=== PATIENT | female | born 1995 | race Caucasian/White ===

== ENCOUNTER 2023-01-22 01:58 | Emergency (ER) | payer MEDICARE, MEDICAID, SELFPAY ==
[2023-01-22 01:58] VITALS: BP 129/86; PULSE 92; RESP 22; TEMP 36.6; O2SAT 97; BMI 22.3
--- NOTE | 2023-01-22 02:08 | ED.PSYCH1 ---
HPI - Psych General Chief Complaint: Psychiatric Symptoms Stated Complaint: SUICIDAL Time Seen by Provider: 01/22/23 02:08 Source: Reports patient Mode of arrival: ambulance Limitations: Reports no limitations History of Present Illness HPI Narrative: Patient brought into the emergency department via EMS for a mental health evaluation. Patient states she was fighting with her and he told her that he did not want her there so he called EMS. Patient states she has been arguing with him for the last 3 weeks. He has stayed out all night and several weeks ago for another woman answered the phone and was laughing at her telling her that I am with her right now. She states when she tries to speak to the he states his records it and gets mad and started treating her like she is crazy. She states today she wanted to discuss this could she's not been able to address the issue completely and this had a very bad argument. Patient states she had one shot of tequila and 3 shots of vodka. She thought she was having an anxiety attack and wanted to take some Xanax that she did not take it because she had ON board. She states that is prescribed for her. She has a history of anxiety, depression. She denies any suicide, homicide ideation. She states she is just going through a lot with her but exhibits escalated although there is no violence she feels it would be best if she left. She has been talking to her mom and her friends and everybody advice and certainly from that she cares too much about him to do so. He states he has cheated on her at least 3 times in the last year that they've been together. She states she feels safe going home and he has told her that she could go back to the house. However, she thinks she will stay tonight with her mom. Related Data Home Medications Medication Instructions Recorded Confirmed alprazolam 0.25 mg tablet 0.25 mg PO DAILY 01/22/23 01/22/23 buspirone 10 mg tablet 10 mg PO DAILY 01/22/23 01/22/23 sertraline 100 mg tablet 100 mg PO DAILY 01/22/23 01/22/23 Allergies Allergy/AdvReac Type Severity Reaction Status Date / Time No Known Drug Allergies Allergy Verified 01/22/23 02:05 Review of Systems ROS Status of ROS 10 or more systems reviewed and unremarkable except as noted in history and below Exam Narrative Exam Narrative: Nurses notes and vital signs reviewed and patient is not hypoxic. General: Nontoxic, Well-appearing and in no apparent distress. Skin: Warm, dry, no pallor noted. No Rash Head: Normocephalic, atraumatic. Neck: Supple, non-tender. Eye: Pupils are equal, round and EOMI. No scleral icterus. Ears, Nose, Mouth, and Throat: TM clear, no posterior oropharynx erythema or nasal mucosal hypertrophy, uvula is mid-line Oral mucosa is moist Cardiovascular: Regular Rate and Rhythm without murmur, gallop or rub. Respiratory: No accessory muscle use or respiratory distress. Lungs are clear to auscultation, no wheezing, rales or rhonchi Chest Wall: no tenderness Back: No midline thoracic or lumbar vertebral tenderness. No CVA tenderness Musculoskeletal: normal ROM, no calf or popliteal tenderness, no lower extremity edema/swelling GI: Abdomen is soft, non-distended. Normal bowel sounds. No masses appreciated. No tenderness to palpation. No rebound, guarding, or rigidity noted. Neurological: A&O x4. No cranial nerve dysfunction observed. No truncal ataxia. Moves all extremities. Sensation intact. Psychiatric: Cooperative and interactive. Normal mood and affect. Constitutional Vital Signs, click to edit/add: Last Vital Signs Temp 97.9 F 01/22/23 01:58 Pulse 92 H 01/22/23 01:58 Resp 01/22/23 01:58 BP 129/86 01/22/23 01:58 Pulse Ox 97 01/22/23 01:58 O2 Del Method Room Air 01/22/23 01:58 Course Vital Signs Vital signs: Vital Signs Temperature 97.9 F 01/22/23 01:58 Pulse Rate 92 H 01/22/23 01:58 Respiratory Rate 22 01/22/23 01:58 Blood Pressure 129/86 01/22/23 01:58 Pulse Oximetry 97 01/22/23 01:58 Oxygen Delivery Method Room Air 01/22/23 01:58 Temperature 97.9 F 01/22/23 01:58 Pulse Rate 92 H 01/22/23 01:58 Respiratory Rate 22 01/22/23 01:58 Blood Pressure 129/86 01/22/23 01:58 Pulse Oximetry 97 01/22/23 01:58 Oxygen Delivery Method Room Air 01/22/23 01:58 MDM - Psych MDM Narrative Medical decision making narrative: Patient denies any suicide, homicide ideation. Patient is medically clear. Alcohol level is within the legal limits. She states she was very anxious and was in the middle of the fight. She is instructed to get all her things in order so that she could make up her mind continuing and the relationship or not.At this point I cannot keep this patient against her will. No additional indication for emergent studies at this time. I answered all questions. Discussed discharge instructions including standard anticipatory guidance and what should prompt a return to the emergency department, including if they get worse are not getting better or develops any new or concerning symptoms. I've given them specific time frame in which to follow-up, and who to follow-up with. The patient demonstrates understanding. Patient is nontoxic and stable for discharge with outpatient follow-up. This note was created with the assistance of a speech recognition program. Although the intention is to generate documents that actually reflects the content of the visit, no guarantees can be provided that every mistake has been identified and corrected by editing. Differential Diagnosis Differential diagnosis: Likely acute anxiety Lab Data Attestation: I reviewed the patient's lab results. Labs: Lab Results 01/22/23 01/22/23 Range/Units 02:30 02:41 WBC 5.2 (4.0-11.0) 10^3/uL RBC 4.22 (4.20-5.40) 10^6/uL Hgb 13.1 (12.0-16.0) g/dL Hct 36.9 (36.0-48.0) % MCV 87.4 (81.0-99.0) fL MCH 31.0 (26.7-34.0) pg MCHC 35.5 H (29.9-35.2) g/dL RDW 13.5 (11.0-15.0) % Plt Count 187 (150-450) 10^3/uL MPV 9.0 L (9.5-13.5) fL Neut % (Auto) 49.1 (43.0-75.0) % Lymph % (Auto) 41.9 (20.5-60.0) % [place] % (Auto) 8.0 (1.7-12.0) % Eos % (Auto) 0.8 L (0.9-7.0) % Baso % (Auto) 0.2 (0.2-2.0) % Neut # (Auto) 2.6 (1.4-6.5) 10^3/uL Lymph # (Auto) 2.2 (1.2-3.8) 10^3/uL [place] # (Auto) 0.4 (0.3-0.8) 10^3/uL Eos # (Auto) 0.0 (0.0-0.7) 10^3/uL Baso # (Auto) 0.0 (0.0-0.1) 10^3/uL Abs Immat Gran (auto) 0.00 (0.00-0.03) 10^3/uL Imm/Tot Granulo (auto) 0.0 (0.0-0.5) % Sodium 143 (136-145) mmol/L Potassium 3.1 L (3.5-5.1) mmol/L Chloride 109 H (98-107) mmol/L Carbon Dioxide 24.5 (21.0-32.0) mmol/L Anion Gap 12.6 BUN 14.0 (7.0-18.0) mg/dL Creatinine 0.78 (0.55-1.02) mg/dL Est GFR ( Amer) >60 (>=60) Est GFR (Non-Af Amer) >60 (>=60) BUN/Creatinine Ratio 17.9 Glucose 73 L (74-106) mg/dL Calcium 8.8 (8.5-10.1) mg/dL Total Bilirubin 0.6 (0.2-1.0) mg/dL AST 14 L (15-37) U/L ALT 16 (14-59) U/L Alkaline Phosphatase 70 (46-116) U/L Total Protein 7.8 (6.4-8.2) g/dL Albumin 4.3 (3.4-5.0) g/dL Globulin 3.5 g/dL Albumin/Globulin Ratio 1.2 Urine Color Lt. yellow (YELLOW) Urine Clarity Clear (CLEAR) Urine pH 7.0 (5.0-9.0) Ur Specific [place] <=1.005 A (1.005-1.025) Urine Protein Negative (NEG/TRACE) mg/dL Urine Glucose (UA) Negative (NEGATIVE) mg/dL Urine Ketones Negative (NEGATIVE) mg/dL Urine Occult Blood Negative (NEGATIVE) Urine Nitrite Negative (NEGATIVE) Urine Bilirubin Negative (NEGATIVE) Urine Urobilinogen 0.2 (0.2-1.0) EU/dL Ur Leukocyte Esterase Negative (NEGATIVE) Urine HCG, Qual Negative (NEGATIVE) Salicylates <2.8 (<=19.9) mg/dL Urine Opiates Screen Negative (NEGATIVE) Ur Buprenorphine Scrn Negative (NEGATIVE) Ur Oxycodone Screen Negative (NEGATIVE) Urine Methadone Screen Negative (NEGATIVE) Ur Propoxyphene Screen Negative (NEGATIVE) Acetaminophen <2.0 L (10.0-30.0) ug/mL Ur Barbiturates Screen Negative (NEGATIVE) U Tricyclic Antidepress Negative (NEGATIVE) Ur Phencyclidine Scrn Negative (NEGATIVE) Ur Amphetamines Screen Negative (NEGATIVE) U Methamphetamines Scrn Negative (NEGATIVE) U Benzodiazepines Scrn Negative (NEGATIVE) Urine Cocaine Screen Negative (NEGATIVE) U Cannabinoids Screen Negative (NEGATIVE) Ethanol Quant 69 mg/dL ECG Data Attestation: I personally reviewed and interpreted this ECG as follows: Discharge Plan Discharge Chief Complaint: Psychiatric Symptoms Clinical Impression: Acute reaction to stress Patient Disposition: Home, Self-Care Time of Disposition Decision: 03:21 Condition: Good Mode of Transportation: Private Vehicle Prescriptions / Home Meds: No Action buspirone 10 mg tablet 10 mg PO DAILY alprazolam 0.25 mg tablet 0.25 mg PO DAILY sertraline 100 mg tablet 100 mg PO DAILY Instructions: Stress (ED) Additional Instructions: Follow-up with mental health in the morning. Stand Alone Forms: Portal Instructions
--- NOTE | 2023-01-22 02:10 | ECG_ITS ---
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
[2023-01-22] MEDS: 0.9 % SODIUM CHLORIDE 1,000 ML 999 ML IV (02:30)
[2023-01-22 02:50] LABS: Basophils Percent Auto 0.2 % (0.2-2.0); Eosinophils Percent Auto 0.8 % (0.9-7.0); Hematocrit 36.9 % (36.0-48.0); Hemoglobin 13.1 g/dL (12.0-16.0); Lymphocytes Absolute Auto 2.2 10^3/uL (1.2-3.8); Lymphocytes Percent Auto 41.9 % (20.5-60.0); Mean Corpuscular HGB Conc 35.5 g/dL (29.9-35.2); Mean Corpuscular Volume 87.4 fL (81.0-99.0); Monocytes Absolute Auto 0.4 10^3/uL (0.3-0.8); Neutrophils Absolute Auto 2.6 10^3/uL (1.4-6.5); Neutrophils Percent Auto 49.1 % (43.0-75.0); Platelet Count 187 10^3/uL (150-450); Red Blood Count 4.22 10^6/uL (4.20-5.40); Red Cell Distribution Width 13.5 % (11.0-15.0); White Blood Count 5.2 10^3/uL (4.0-11.0)
[2023-01-22 02:54] LABS: Bilirubin Urine NEGATIVE (NEGATIVE); Blood Urine NEGATIVE (NEGATIVE); Clarity Urine CLEAR (CLEAR); Color Urine LT. YELLOW (YELLOW); Glucose Urine UA NEGATIVE (NEGATIVE); HCG Qualitative Urine* NEGATIVE (NEGATIVE); Ketones Urine NEGATIVE (NEGATIVE); Leukocyte Esterase Urine NEGATIVE (NEGATIVE); Nitrite Urine NEGATIVE (NEGATIVE); Protein Urine NEGATIVE (NEG/TRACE); Specific Gravity Urine <=1.005 (1.005-1.025); Urobilinogen Urine 0.2 EU/dL (0.2-1.0)
[2023-01-22 03:00] LABS: Urine Microscopic Indicated NO
[2023-01-22 03:03] LABS: Amphetamine Screen Urine NEGATIVE (NEGATIVE); Barbiturates Screen Urine NEGATIVE (NEGATIVE); Benzodiazepines Screen Urine NEGATIVE (NEGATIVE); Buprenorphine Screen Urine NEGATIVE (NEGATIVE); Cannabinoid Screen Urine NEGATIVE (NEGATIVE); Cocaine Screen Urine NEGATIVE (NEGATIVE); Methadone Screen Urine NEGATIVE (NEGATIVE); Methamphetamines Screen Urine NEGATIVE (NEGATIVE); Opiate Screen Urine NEGATIVE (NEGATIVE); Oxycodone Screen Urine NEGATIVE (NEGATIVE); Phencyclidine Screen Urine NEGATIVE (NEGATIVE); Tricyclic Antidepressant Urine NEGATIVE (NEGATIVE)
--- NOTE | 2023-01-22 03:05 | PC.NURSE ---
patient came in by ems. patient was crying and upset. stated she got into an argument with her bf and that he called the bottling line attendant bc he wanted her to leave. patient stated she began having a panic attack but couldnt take her Xanax bc she had been drinking. patient said she wanted to cut herself. patient has hx of cutting herself but stated she hasn't done it in years. Patient states she doesnt want to be admitted, she wants to do counseling and go stay with her mom.
[2023-01-22 03:06] LABS: Salicylate <2.8 mg/dL (<=19.9)
[2023-01-22 03:09] LABS: Acetaminophen <2.0 ug/mL (10.0-30.0); Alanine Aminotransferase 16 U/L (14-59); Albumin Globulin Ratio 1.2; Albumin Level 4.3 g/dL (3.4-5.0); Alkaline Phosphatase 70 U/L (46-116); Anion Gap 12.6; Aspartate Amino Transferase 14 U/L (15-37); BUN Creatinine Ratio 17.9; Bilirubin Total 0.6 mg/dL (0.2-1.0); Calcium 8.8 mg/dL (8.5-10.1); Carbon Dioxide 24.5 mmol/L (21.0-32.0); Chloride 109 mmol/L (98-107); Estimated GFR (African America >60 (>=60); Estimated GFR (Non-African Ame >60 (>=60); Ethanol 69 mg/dL; Globulin 3.5 g/dL; Glucose 73 mg/dL (74-106); Potassium 3.1 mmol/L (3.5-5.1); Sodium 143 mmol/L (136-145); Total Protein 7.8 g/dL (6.4-8.2)
== END 2023-01-22 03:34 | disposition home or self-care (01) ==
PROVIDERS: Emergency Provider Emergency Medicine
DX: F43.0 Acute stress reaction (principal); F41.9 Anxiety disorder, unspecified; F32.A Depression, unspecified; Z79.899 Other long term (current) drug therapy
CPT/HCPCS: 36415; 80053; 80179; 80307; 80320; 80329; 81003; 84703; 85025; 93005; 99285

== ENCOUNTER 2023-02-07 12:55 | Emergency (ER) | payer SELFPAY | END 2023-02-07 12:59 | disposition left against medical advice (07) | LOC: ER 13:07 | PROVIDERS: Emergency Provider Emergency Medicine | DX: Z53.21 Procedure and treatment not carried out due to patient leaving prior to being seen by health care provider (principal) ==

== ENCOUNTER 2023-02-15 12:18 | Emergency (ER) | payer MEDICARE, SELFPAY ==
[2023-02-15 12:25] VITALS: BP 130/85; PULSE 78; RESP 14; TEMP 37.1; O2SAT 100; BMI 23.0
--- NOTE | 2023-02-15 12:59 | ED.GENADUL1 ---
HPI - General Adult General Chief complaint: Weakness Stated complaint: UPPER EXTREMITY PAIN LEFT ARM Time Seen by Provider: 02/15/23 12:53 Source: patient Mode of arrival: walk-in Limitations: no limitations History of Present Illness HPI narrative: Patient is a . All systems are negative except as noted/marked. All systems reviewed and otherwise negative. . Nurses note and vital signs reviewed and patient is not hypoxic. General: The patient appears well and in no apparent distress. Patient is resting comfortably on cart. Patient is not toxic, lethargic, or listless Skin: Warm, dry, no pallor noted. There is no rash noted. No petechiae, purpura. Head: Normocephalic, atraumatic Eye: Normal conjunctiva, no drainage, EOMI. PERRL Ears, Nose, Mouth, and Throat: oral mucosa is moist. Nares patent. Mouth without vesicles. Cardiovascular: Regular Rate and Rhythm, no murmur, gallop, rub Respiratory: Patient is in no distress, no accessory muscle use, lungs are clear to auscultation, no wheezing, rales or rhonchi Back: non-tender, no CVA tenderness bilaterally to percussion. No CT LS midline pain GI: soft, no tenderness to palpation, no masses appreciated. No rebound, guarding, or rigidity noted. No flank pain bilateral, No distention Musculoskeletal: Patient has full range of motion of all of the extremities, no motor, sensory, or focal neurological deficits Neurological: A&O x3, normal speech Psychiatric: Cooperative Related Data Home Medications Medication Instructions Recorded Confirmed alprazolam 0.25 mg tablet 0.25 mg PO DAILY 01/22/23 01/22/23 buspirone 10 mg tablet 10 mg PO DAILY 01/22/23 01/22/23 sertraline 100 mg tablet 100 mg PO DAILY 01/22/23 01/22/23 levothyroxine 100 mcg tablet 100 mcg PO DAILY 02/15/23 02/15/23 Allergies Allergy/AdvReac Type Severity Reaction Status Date / Time No Known Drug Allergies Allergy Verified 02/15/23 12:30 PFSH [facility] Social History Smoking status: Current every day smoker Exam Constitutional Vital Signs, click to edit/add: Last Vital Signs Temp 98.8 F 02/15/23 12:25 Pulse 78 02/15/23 12:25 Resp 14 02/15/23 12:25 BP 130/85 02/15/23 12:25 Pulse Ox 100 02/15/23 12:25 O2 Del Method Room Air 02/15/23 12:25 Course Vital Signs Vital signs: Vital Signs Temperature 98.8 F 02/15/23 12:25 Pulse Rate 78 02/15/23 12:25 Respiratory Rate 14 02/15/23 12:25 Blood Pressure 130/85 02/15/23 12:25 Pulse Oximetry 100 02/15/23 12:25 Oxygen Delivery Method Room Air 02/15/23 12:25 Temperature 98.8 F 02/15/23 12:25 Pulse Rate 78 02/15/23 12:25 Respiratory Rate 14 02/15/23 12:25 Blood Pressure 130/85 02/15/23 12:25 Pulse Oximetry 100 02/15/23 12:25 Oxygen Delivery Method Room Air 02/15/23 12:25 Discharge Plan Discharge Chief Complaint: Weakness Prescriptions / Home Meds: No Action buspirone 10 mg tablet 10 mg PO DAILY alprazolam 0.25 mg tablet 0.25 mg PO DAILY sertraline 100 mg tablet 100 mg PO DAILY levothyroxine 100 mcg tablet 100 mcg PO DAILY Referrals: Physician,Non-Staff, [Primary Care Provider] - 1 week
--- NOTE | 2023-02-15 13:07 | PC.NURSE ---
Lab was in room to draw pts blood when pt stated she had to leave to make it to an appt. for her implanted control device. loom technician told her to check in with staff first but she eloped without telling anyone. Dr Armijo notified.
== END 2023-02-15 13:20 | disposition left against medical advice (07) ==
PROVIDERS: Emergency Provider Emergency Medicine
DX: Z53.21 Procedure and treatment not carried out due to patient leaving prior to being seen by health care provider (principal)
CPT/HCPCS: 80048; 80076; 81001; 83735; 84439; 84443; 84703; 99284

== ENCOUNTER 2023-03-06 02:11 | Emergency (ER) | payer MEDICARE, MEDICAID, SELFPAY ==
[2023-03-06] VITALS (8 sets, daily range): BP systolic 110–138; BP diastolic 80–100; PULSE 107–114; RESP 16–18; TEMP 36.7; O2SAT 96–98
--- NOTE | 2023-03-06 02:26 | ECG_ITS ---
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
--- NOTE | 2023-03-06 02:27 | ED.PSYCH1 ---
HPI - Psych General Chief Complaint: Psychiatric Symptoms Stated Complaint: Suicide Time Seen by Provider: 03/06/23 02:17 History of Present Illness HPI Narrative: 27-year-old female presents for self-harm. Her called the police and they transported her here. She states that she had a mental breakdown and she was upset because she caught her cheating on her. She used scissors to cause numerous superficial abrasions to her arms and her thigh. She drank two bottles of wine tonight. She doesn't have any physical complaints and states she does not want to go to a mental hospital. She doesn't seem to have any physical complaints such as fever cough chest pain or shortness of breath. This occurred tonight. She told me that she had a weakly positive test. Related Data Home Medications Medication Instructions Recorded Confirmed alprazolam 0.25 mg tablet 0.25 mg PO DAILY 01/22/23 03/06/23 buspirone 10 mg tablet 10 mg PO DAILY 01/22/23 03/06/23 sertraline 100 mg tablet 100 mg PO DAILY 01/22/23 03/06/23 levothyroxine 100 mcg tablet 100 mcg PO DAILY 02/15/23 03/06/23 Allergies Allergy/AdvReac Type Severity Reaction Status Date / Time No Known Drug Allergies Allergy Verified 02/15/23 12:30 Review of Systems ROS Narrative A ten point review of systems is negative except as noted above. PFSH PFSH Social History Smoking status: Current every day smoker Exam Narrative Exam Narrative: Nurses note and vital signs reviewed and patient is not hypoxic. General: The patient appears well and in no apparent distress. Patient is resting comfortably on cart. Skin: Warm, dry, no pallor noted. There is no rash noted. Head: Normocephalic, atraumatic Eye: Normal conjunctiva, no drainage Ears, Nose, Mouth, and Throat: oral mucosa is moist. Nares patent. Cardiovascular: Regular Rate and Rhythm Respiratory: Patient is in no distress, no accessory muscle use, lungs are clear to auscultation, no wheezing, rales or rhonchi Back: non-tender GI: nontender Musculoskeletal: she has several superficial abrasions to each forearm on the flexor side and a few on her right thigh as well. No deep lacerations. Neurological: A&O, normal speech Psychiatric: Cooperative Constitutional Vital Signs, click to edit/add: Last Vital Signs Temp 98.1 F 03/06/23 02:17 Pulse 107 H 03/06/23 03:52 Resp 18 03/06/23 03:52 BP 133/100 H 03/06/23 03:52 Pulse Ox 97 03/06/23 03:52 O2 Del Method Room Air 03/06/23 02:17 Course Vital Signs Vital signs: Vital Signs Temperature 98.1 F 03/06/23 02:17 Pulse Rate 112 H 03/06/23 02:17 Respiratory Rate 16 03/06/23 02:17 Blood Pressure 138/98 H 03/06/23 02:17 Pulse Oximetry 97 03/06/23 02:17 Oxygen Delivery Method Room Air 03/06/23 02:17 Temperature 98.1 F 03/06/23 02:17 Pulse Rate 107 H 03/06/23 03:52 Respiratory Rate 18 03/06/23 03:52 Blood Pressure 133/100 H 03/06/23 03:52 Pulse Oximetry 97 03/06/23 03:52 Oxygen Delivery Method Room Air 03/06/23 02:17 MDM - Psych MDM Narrative Medical decision making narrative: Labs are nonspecific. Alcohol level of 31 is not consistent with her self reported history of drinking two bottles of wine. She will be observed and the patient is signed out to Dr. Navarrete and will need mental health services to be involved. Differential Diagnosis Differential diagnosis: Likely suicidal ideation, depression and acute anxiety Lab Data Attestation: I reviewed the patient's lab results. Labs: Lab Results 03/06/23 03/06/23 Range/Units 02:21 02:43 WBC 4.8 (4.0-11.0) 10^3/uL RBC 4.76 (4.20-5.40) 10^6/uL Hgb 15.0 (12.0-16.0) g/dL Hct 42.4 (36.0-48.0) % MCV 89.1 (81.0-99.0) fL MCH 31.5 (26.7-34.0) pg MCHC 35.4 H (29.9-35.2) g/dL RDW 12.2 (11.0-15.0) % Plt Count 218 (150-450) 10^3/uL MPV 8.7 L (9.5-13.5) fL Neut % (Auto) 40.4 L (43.0-75.0) % Lymph % (Auto) 50.2 (20.5-60.0) % [place] % (Auto) 8.2 (1.7-12.0) % Eos % (Auto) 1.0 (0.9-7.0) % Baso % (Auto) 0.2 (0.2-2.0) % Neut # (Auto) 1.9 (1.4-6.5) 10^3/uL Lymph # (Auto) 2.4 (1.2-3.8) 10^3/uL [place] # (Auto) 0.4 (0.3-0.8) 10^3/uL Eos # (Auto) 0.1 (0.0-0.7) 10^3/uL Baso # (Auto) 0.0 (0.0-0.1) 10^3/uL Abs Immat Gran (auto) 0.00 (0.00-0.03) 10^3/uL Imm/Tot Granulo (auto) 0.0 (0.0-0.5) % Sodium 139 (136-145) mmol/L Potassium 3.3 L (3.5-5.1) mmol/L Chloride 103 (98-107) mmol/L Carbon Dioxide 22.8 (21.0-32.0) mmol/L Anion Gap 16.5 BUN 6.0 L (7.0-18.0) mg/dL Creatinine 0.71 (0.55-1.02) mg/dL Est GFR ( Amer) >60 (>=60) Est GFR (Non-Af Amer) >60 (>=60) BUN/Creatinine Ratio 8.5 Glucose 88 (74-106) mg/dL Calcium 8.9 (8.5-10.1) mg/dL Serum HCG, Qual Negative (NEGATIVE) Urine Color Yellow (YELLOW) Urine Clarity Clear (CLEAR) Urine pH 6.0 (5.0-9.0) Ur Specific [place] >=1.030 A (1.005-1.025) Urine Protein Trace (NEG/TRACE) mg/dL Urine Glucose (UA) Negative (NEGATIVE) mg/dL Urine Ketones Negative (NEGATIVE) mg/dL Urine Occult Blood Trace-i (NEGATIVE) Urine Nitrite Negative (NEGATIVE) Urine Bilirubin Negative (NEGATIVE) Urine Urobilinogen 0.2 (0.2-1.0) EU/dL Ur Leukocyte Esterase Negative (NEGATIVE) Urine RBC 0-2 (0-2) #/HPF Urine WBC 0-2 A (NONE SEEN) #/HPF Ur Squamous Epith Cells Many A (NONE/RARE) #/LPF Urine Crystals None seen (None Seen) #/HPF Urine Bacteria Small A (NONE SEEN) #/HPF Urine Casts None seen (NONE SEEN) #/LPF Urine Mucus Large A (NONE SEEN) Urine Yeast Seen A (NONE SEEN) Salicylates <2.8 (<=19.9) mg/dL Urine Opiates Screen Negative (NEGATIVE) Ur Buprenorphine Scrn Negative (NEGATIVE) Ur Oxycodone Screen Negative (NEGATIVE) Urine Methadone Screen Negative (NEGATIVE) Ur Propoxyphene Screen Negative (NEGATIVE) Acetaminophen <2.0 L (10.0-30.0) ug/mL Ur Barbiturates Screen Negative (NEGATIVE) U Tricyclic Antidepress Negative (NEGATIVE) Ur Phencyclidine Scrn Negative (NEGATIVE) Ur Amphetamines Screen Negative (NEGATIVE) U Methamphetamines Scrn Negative (NEGATIVE) U Benzodiazepines Scrn Negative (NEGATIVE) Urine Cocaine Screen Negative (NEGATIVE) U Cannabinoids Screen Negative (NEGATIVE) Ethanol Quant 31 mg/dL ECG Data Attestation: I personally reviewed and interpreted this ECG as follows: (EKG on my interpretation shows sinus rhythm with a rate of 108.) Discharge Plan Discharge Patient Disposition: Still a Patient
[2023-03-06 02:53] LABS: Basophils Percent Auto 0.2 % (0.2-2.0); Eosinophils Absolute Auto 0.1 10^3/uL (0.0-0.7); Hematocrit 42.4 % (36.0-48.0); Lymphocytes Absolute Auto 2.4 10^3/uL (1.2-3.8); Lymphocytes Percent Auto 50.2 % (20.5-60.0); Mean Corpuscular HGB Conc 35.4 g/dL (29.9-35.2); Mean Corpuscular Hemoglobin 31.5 pg (26.7-34.0); Mean Corpuscular Volume 89.1 fL (81.0-99.0); Mean Platelet Volume 8.7 fL (9.5-13.5); Monocytes Absolute Auto 0.4 10^3/uL (0.3-0.8); Monocytes Percent Auto 8.2 % (1.7-12.0); Neutrophils Absolute Auto 1.9 10^3/uL (1.4-6.5); Neutrophils Percent Auto 40.4 % (43.0-75.0); Platelet Count 218 10^3/uL (150-450); Red Blood Count 4.76 10^6/uL (4.20-5.40); Red Cell Distribution Width 12.2 % (11.0-15.0); White Blood Count 4.8 10^3/uL (4.0-11.0)
[2023-03-06 03:05] LABS: Anion Gap 16.5; BUN Creatinine Ratio 8.5; Calcium 8.9 mg/dL (8.5-10.1); Carbon Dioxide 22.8 mmol/L (21.0-32.0); Chloride 103 mmol/L (98-107); Estimated GFR (African America >60 (>=60); Estimated GFR (Non-African Ame >60 (>=60); Ethanol 31 mg/dL; Glucose 88 mg/dL (74-106); Potassium 3.3 mmol/L (3.5-5.1); Sodium 139 mmol/L (136-145)
[2023-03-06 03:12] LABS: Bilirubin Urine NEGATIVE (NEGATIVE); Blood Urine TRACE-I (NEGATIVE); Clarity Urine CLEAR (CLEAR); Color Urine YELLOW (YELLOW); Glucose Urine UA NEGATIVE (NEGATIVE); Ketones Urine NEGATIVE (NEGATIVE); Leukocyte Esterase Urine NEGATIVE (NEGATIVE); Nitrite Urine NEGATIVE (NEGATIVE); Protein Urine TRACE mg/dL (NEG/TRACE); Specific Gravity Urine >=1.030 (1.005-1.025); Urobilinogen Urine 0.2 EU/dL (0.2-1.0)
[2023-03-06] MEDS: ADACEL DIPH,PERTUSS(ACELL),TET VAC/PF 0.5 ML ADULT SYRINGE IM (03:23)
[2023-03-06 03:29] LABS: HCG Qualitative NEGATIVE (NEGATIVE)
[2023-03-06 03:38] LABS: Squamous Epithelial Cell Urine MANY #/LPF (NONE/RARE)
[2023-03-06 03:39] LABS: Cast Seen? NONE SEEN #/LPF (NONE SEEN); Mucus Urine LARGE (NONE SEEN)
[2023-03-06 03:42] LABS: Bacteria Urine SMALL #/HPF (NONE SEEN); Crystals Seen? None Seen #/HPF (None Seen); WBC Urine 0-2 #/HPF (NONE SEEN)
[2023-03-06 03:43] LABS: RBC Urine 0-2 #/HPF (0-2)
[2023-03-06 03:45] LABS: Salicylate <2.8 mg/dL (<=19.9)
[2023-03-06 03:47] LABS: Acetaminophen <2.0 ug/mL (10.0-30.0)
[2023-03-06 03:51] LABS: Amphetamine Screen Urine NEGATIVE (NEGATIVE); Barbiturates Screen Urine NEGATIVE (NEGATIVE); Benzodiazepines Screen Urine NEGATIVE (NEGATIVE); Buprenorphine Screen Urine NEGATIVE (NEGATIVE); Cannabinoid Screen Urine NEGATIVE (NEGATIVE); Cocaine Screen Urine NEGATIVE (NEGATIVE); Methadone Screen Urine NEGATIVE (NEGATIVE); Methamphetamines Screen Urine NEGATIVE (NEGATIVE); Opiate Screen Urine NEGATIVE (NEGATIVE); Oxycodone Screen Urine NEGATIVE (NEGATIVE); Phencyclidine Screen Urine NEGATIVE (NEGATIVE); Tricyclic Antidepressant Urine NEGATIVE (NEGATIVE)
[2023-03-06] MEDS: ONDANSETRON PF 4 MG/2 ML VIAL IM (08:29)
== END 2023-03-06 10:35 | disposition home or self-care (01) ==
PROVIDERS: Emergency Provider Emergency Medicine
DX: S70.311A Abrasion, right thigh, initial encounter (principal); S50.812A Abrasion of left forearm, initial encounter; S50.811A Abrasion of right forearm, initial encounter; X78.8XXA Intentional self-harm by other sharp object, initial encounter; F32.A Depression, unspecified; F91.8 Other conduct disorders; F17.210 Nicotine dependence, cigarettes, uncomplicated; Z79.899 Other long term (current) drug therapy; Z79.890 Hormone replacement therapy; Z23 Encounter for immunization
CPT/HCPCS: 36415; 80048; 80179; 80307; 80320; 80329; 81001; 84703; 85025; 90471; 90715; 93005; 96372; 99285

== ENCOUNTER 2023-05-28 10:30 | Emergency (ER) | payer MEDICARE, MEDICAID, SELFPAY ==
[2023-05-28 10:33] VITALS: BP 104/74; PULSE 82; RESP 14; TEMP 36.6; O2SAT 98; BMI 21.9
--- NOTE | 2023-05-28 10:43 | ED_ITS ---
HPI - Skin/Abscess/Foreign Bdy General Chief complaint: Skin/Abscess/Foreign Body Stated complaint: UPPER EXTREMITY PAIN L HAND Time Seen by Provider: 05/28/23 10:34 Source: patient Mode of arrival: walk-in History of Present Illness HPI narrative: patient here for irritation at the ring finger of her left hand. She formerly had on some acrylic nails and it came off. She's been applying topical antibiotic cream but it started a little bit more red. She has no other symptoms or complaints today. Related Data Home Medications Medication Instructions Recorded Confirmed buspirone 10 mg tablet 10 mg PO DAILY 01/22/23 05/28/23 sertraline 100 mg tablet 100 mg PO DAILY 01/22/23 05/28/23 levothyroxine 100 mcg tablet 100 mcg PO DAILY 02/15/23 05/28/23 norethindrone (contraceptive) 0.35 0.35 mg PO DAILY 05/28/23 05/28/23 mg tablet Allergies Allergy/AdvReac Type Severity Reaction Status Date / Time No Known Drug Allergies Allergy Verified 02/15/23 12:30 [facility] Medical History (Updated 05/28/23 @ 10:45 by Miguel Gill MD) Hypothyroid ?E03.9 - Hypothyroidism, unspecified (ICD-10) Social History Smoking status: Current every day smoker Exam Narrative Exam Narrative: problem focused examination shows her to be well-hydrated well-nourished in no distress vital signs are stable. Examining the finger there is mild erythema around the nail with some indrawing soft tissue around the nail bed itself. There is no felon. There is no cellulitis over the dorsum of the hand patient has localized mild erythema of the distal phalanx dorsal surface only, this is very limited. Constitutional Vital Signs, click to edit/add: Last Vital Signs Temp 97.9 F 05/28/23 10:33 Pulse 82 05/28/23 10:33 Resp 14 05/28/23 10:33 BP 104/74 05/28/23 10:33 Pulse Ox 98 05/28/23 10:33 O2 Del Method Room Air 05/28/23 10:33 Course Vital Signs Vital signs: Vital Signs Temperature 97.9 F 05/28/23 10:33 Pulse Rate 82 05/28/23 10:33 Respiratory Rate 14 05/28/23 10:33 Blood Pressure 104/74 05/28/23 10:33 Pulse Oximetry 98 05/28/23 10:33 Oxygen Delivery Method Room Air 05/28/23 10:33 Temperature 97.9 F 05/28/23 10:33 Pulse Rate 82 05/28/23 10:33 Respiratory Rate 14 05/28/23 10:33 Blood Pressure 104/74 05/28/23 10:33 Pulse Oximetry 98 05/28/23 10:33 Oxygen Delivery Method Room Air 05/28/23 10:33 MDM - Skin/Abscess/Foreign Bdy MDM Narrative Medical decision making narrative: patient has early soft tissue infection after loss of an acrylic nail. She is ad vised not to have replacement nail for at least two weeks. She is to continue soaking the digit at least 3-4 times a day, topical antibiotics/Keflex Discharge Plan Discharge Chief Complaint: Skin/Abscess/Foreign Body Clinical Impression: Soft tissue infection Patient Disposition: Home, Self-Care Time of Disposition Decision: 10:45 Prescriptions / Home Meds: No Action buspirone 10 mg tablet 10 mg PO DAILY sertraline 100 mg tablet 100 mg PO DAILY levothyroxine 100 mcg tablet 100 mcg PO DAILY norethindrone (contraceptive) 0.35 mg tablet 0.35 mg PO DAILY Additional Instructions: soaked the digit three or four times a day, topical antibiotic ointment/Keflex Stand Alone Forms: Portal Instructions Referrals: Physician,Non-Staff, MD [Primary Care Provider] - 1 week
== END 2023-05-28 10:50 | disposition home or self-care (01) ==
PROVIDERS: Emergency Provider Emergency Medicine Emergency Medical Services
DX: L08.9 Local infection of the skin and subcutaneous tissue, unspecified (principal); E03.9 Hypothyroidism, unspecified; F17.210 Nicotine dependence, cigarettes, uncomplicated; Z79.899 Other long term (current) drug therapy; Z79.890 Hormone replacement therapy
CPT/HCPCS: 99283

== ENCOUNTER 2023-07-19 17:09 | Emergency (ER) | payer MEDICARE, MEDICAID, SELFPAY ==
[2023-07-19 17:14] VITALS: BP 111/83; PULSE 97; RESP 18; TEMP 36.9; O2SAT 99; BMI 21.3
--- NOTE | 2023-07-19 17:32 | XR_ITS ---
The [address] [address] Patient Name: HERMINIO COOPER MRN: [id number] date: 1995 Sex: F Assigned Patient Location: ER Current Patient Location: ED.MAIN Accession/Order Number: [id number] Exam Date: 07/19/2023 17:25 Report Date: 07/19/2023 18:16 At the request of: GUNNER HAMPTON Procedure: XR lumbar spine 2-3V EXAM: XR lumbar spine 2-3V HISTORY: injury COMPARISON: None. TECHNIQUE: 3 views lumbar spine. FINDINGS: Bones: No radiographic evidence of fracture. Normal vertebral body heights. No aggressive appearing lesion. Alignment: No pathologic listhesis or scoliotic curvature. Degenerative findings: No radiographic evidence of degenerative findings. Additional findings: None. XR/XR lumbar spine 2-3V IMPRESSION: No definite fracture. CT of the lumbar spine is recommended if clinically warranted. Electronically authenticated by: JAMIL MENDES Date: 07/19/2023 18:16
--- NOTE | 2023-07-19 17:37 | CT_ITS ---
The [address] [address] Patient Name: HERMINIO COOPER MRN: [id number] date: 1995 Sex: F Assigned Patient Location: ER Current Patient Location: ER Accession/Order Number: [id number] Exam Date: 07/19/2023 17:35 Report Date: 07/19/2023 18:22 At the request of: KRISTI AKERS Procedure: CT head/brain wo con EXAM: CT head/brain wo con COMPARISON: None available. CLINICAL INFORMATION: Headache. TECHNIQUE: Axial noncontrast images were obtained through the brain and reconstructed using brain and bone algorithms with sagittal and coronal reconstructions. Dose reduction techniques were achieved by using automated exposure control and/or adjustment of mA and/or kV according to patient size and/or use of iterative reconstruction technique. FINDINGS: BRAIN: No intracranial hemorrhage. No extra-axial collection. No mass or mass effect. No midline shift. Yoo-white matter differentiation is preserved. CSF: Ventricles and sulci appropriate for age. Basal cisterns are patent. ORBITS: Visualized orbital structures are unremarkable. SINUSES AND MASTOID AIR CELLS: Paranasal sinuses are clear. Mastoid air cells are clear. BONES: No acute osseous abnormality. SOFT TISSUES: Unremarkable. CT/CT head/brain wo con IMPRESSION: No acute intracranial abnormality. Electronically authenticated by: JEANNE BARNEY Date: 07/19/2023 18:22
[2023-07-19 17:38] LABS: HCG Qualitative Urine* NEGATIVE (NEGATIVE)
--- NOTE | 2023-07-19 17:38 | ED_ITS ---
Documented by User: PRASANNA Reyes 07/19/23 18:31 HPI - General Adult General Chief complaint: Headache Stated complaint: Headache Time Seen by Provider: 07/19/23 17:12 Source: patient Mode of arrival: walk-in Limitations: no limitations History of Present Illness HPI narrative: Patient is a 28-year-old female who presents to the emergency department for the evaluation of multiple complaints. She states for the last 3 to 4 days she has had a migraine consistent with previous although it has not been helped with ibuprofen or Fioricet that is prescribed to her. She states the pain is frontal, across the eyes with no visual changes, fevers. She reports nausea with no vomiting. No neck pain. She further complains of diffuse right low back pain after a fall down 3-4 wooden steps 2 to 3 days ago. She drove herself to the ER, she is able to ambulate. She states pain radiates into the posterior right hip with some pain radiation into the right leg. No numbness, urinary symptoms. She is unsure of , test was obtained prior to my evaluation which is negative. Related Data Home Medications Medication Instructions Recorded Confirmed buspirone 10 mg tablet 10 mg PO DAILY 01/22/23 07/19/23 sertraline 100 mg tablet 100 mg PO DAILY 01/22/23 07/19/23 levothyroxine 100 mcg tablet 100 mcg PO DAILY 02/15/23 07/19/23 norethindrone (contraceptive) 0.35 0.35 mg PO DAILY 05/28/23 07/19/23 mg tablet Previous Rx's Medication Instructions Recorded ketorolac 10 mg tablet 10 mg PO TID PRN pain #10 tabs 07/19/23 methocarbamol 750 mg tablet 750 mg PO TID PRN pain #20 tabs 07/19/23 ondansetron 4 mg disintegrating 4 mg PO Q6H PRN nausea and 07/19/23 tablet vomiting #12 tabs Allergies Allergy/AdvReac Type Severity Reaction Status Date / Time No Known Drug Allergies Allergy Verified 07/19/23 17:14 Review of Systems ROS Constitutional Denies: fever or chills Eyes Denies: change in vision Ears, nose, mouth, and throat Denies: throat pain, neck pain or nasal congestion Cardiovascular Denies: chest pain Respiratory Denies: shortness of breath Gastrointestinal Reports: nausea; Denies: vomiting or diarrhea Genitourinary Denies: painful urination Musculoskeletal Reports: back pain; Denies: neck pain or extremity pain Integumentary/Breast Denies: rash Neurological Reports: headache; Denies: numbness in extremities or weakness in extremities Endocrine Denies: excessive urination [facility] Medical History (Updated 07/19/23 @ 18:26 by PRASANNA Reyes) Hypothyroid ?E03.9 - Hypothyroidism, unspecified (ICD-10) Social History Smoking status: Current every day smoker Exam Narrative Exam Narrative: Gen.: Awake, alert, in no distress Head: Normocephalic, atraumatic ENT: Moist mucous membranes; No nuchal rigidity or cervical tenderness Respiratory: No respiratory distress, lungs clear bilaterally Cardio: Regular rate and rhythm Back: No bony tenderness of the T-spine or midline lumbar spine with diffuse tenderness of the paraspinal muscles of the right low back and posterior hip.No abrasions, ecchymosis. No obvious deformity or step-off of the lumbar spine. Extremities: Moves extremities equally, Normal dorsiflexion and plantarflexion of the lower extremities with no decrease in sensation to the medial thighs, normal hip flexion bilaterally Psych: Normal mood and affect Neuro: No focal neuro deficit Skin: Warm, dry, intact Constitutional Vital Signs, click to edit/add: Last Vital Signs Temp 98.5 F 07/19/23 17:14 Pulse 97 H 07/19/23 17:14 Resp 18 07/19/23 17:14 BP 111/83 07/19/23 17:14 Pulse Ox 99 07/19/23 17:14 O2 Del Method Room Air 07/19/23 17:14 Course Vital Signs Vital signs: Vital Signs Temperature 98.5 F 07/19/23 17:14 Pulse Rate 97 H 07/19/23 17:14 Respiratory Rate 18 07/19/23 17:14 Blood Pressure 111/83 07/19/23 17:14 Pulse Oximetry 99 07/19/23 17:14 Oxygen Delivery Method Room Air 07/19/23 17:14 Temperature 98.5 F 07/19/23 17:14 Pulse Rate 97 H 07/19/23 17:14 Respiratory Rate 18 07/19/23 17:14 Blood Pressure 111/83 07/19/23 17:14 Pulse Oximetry 99 07/19/23 17:14 Oxygen Delivery Method Room Air 07/19/23 17:14 Medical Decision Making MDM Narrative Medical decision making narrative: Patient was sent for x-rays of the lumbar spine prior to my evaluation, she has no midline lumbar spine tenderness. She does have some pain radiation into the right leg, consistent with sciatica. CT of the brain was added as the patient has Continued headache after taking her typical migraine medications. CT of the brain is unremarkable. I discussed with the patient treatment for her headache and low back pain by placing an IV with IV fluids and medications. She declined an IV. She drove herself to the ER and does not wish to call her to come pick her up. She declined intramuscular injections that would force her to require a ride to drive her home. She request Toradol and discharged so she can go home and rest . She has no focal neurodeficits in the ER, she is able to ambulate and drive herself to the ER. She was treated with Toradol, Decadron and Zofran in the ER and will be discharged home with Toradol, Robaxin, Zofran for home. Follow-up with PCP and return to the ER if symptoms change or worsen. Medical Records Medical records reviewed: Yes I reviewed the patient's medical records Lab Data Labs: Lab Results 07/19/23 Range/Units 17:22 Urine HCG, Qual Negative (NEGATIVE) Imaging Data CT scan - head: Attestation: I have reviewed the pertinent imaging results. Radiologist's impression: ITS Impressions Lumbar Spine X-Ray 07/19/23 17:32 IMPRESSION: No definite fracture. CT of the lumbar spine is recommended if clinically warranted. Electronically authenticated by: JMAIL MENDES Date: 07/19/2023 18:[address] 07/19/23 17:37 IMPRESSION: No acute intracranial abnormality. Electronically authenticated by: JEANNE BARNEY Date: 07/19/2023 18:22 Discharge Plan Discharge Chief Complaint: Headache Clinical Impression: Low back pain, Headache Patient Disposition: Home, Self-Care Time of Disposition Decision: 18:26 Condition: Good Prescriptions / Home Meds: New ketorolac 10 mg tablet 10 mg PO TID PRN (Reason: pain) Qty: 10 0RF methocarbamol 750 mg tablet 750 mg PO TID PRN (Reason: pain) Qty: 20 0RF ondansetron 4 mg tablet,disintegrating 4 mg PO Q6H PRN (Reason: nausea and vomiting) Qty: 12 0RF No Action buspirone 10 mg tablet 10 mg PO DAILY sertraline 100 mg tablet 100 mg PO DAILY levothyroxine 100 mcg tablet 100 mcg PO DAILY norethindrone (contraceptive) 0.35 mg tablet 0.35 mg PO DAILY Instructions: Acute Headache (ED), Acute Low Back Pain (ED) Stand Alone Forms: Portal Instructions Referrals: [facility] [Primary Care Provider] - 1 week Discharge Date/Time: 07/19/23 18:37 Documented by User: Zelalem Armijo MD 07/19/23 20:26 HPI - General Adult General Chief complaint: Headache Stated complaint: Headache Time Seen by Provider: 07/19/23 17:12 Related Data Home Medications Medication Instructions Recorded Confirmed buspirone 10 mg tablet 10 mg PO DAILY 01/22/23 07/19/23 sertraline 100 mg tablet 100 mg PO DAILY 01/22/23 07/19/23 levothyroxine 100 mcg tablet 100 mcg PO DAILY 02/15/23 07/19/23 norethindrone (contraceptive) 0.35 0.35 mg PO DAILY 05/28/23 07/19/23 mg tablet Previous Rx's Medication Instructions Recorded ketorolac 10 mg tablet 10 mg PO TID PRN pain #10 tabs 07/19/23 methocarbamol 750 mg tablet 750 mg PO TID PRN pain #20 tabs 07/19/23 ondansetron 4 mg disintegrating 4 mg PO Q6H PRN nausea and 07/19/23 tablet vomiting #12 tabs Allergies Allergy/AdvReac Type Severity Reaction Status Date / Time No Known Drug Allergies Allergy Verified 07/19/23 17:14 [facility] Medical History (Updated 07/19/23 @ 18:26 by PRASANNA Reyes) Hypothyroid ?E03.9 - Hypothyroidism, unspecified (ICD-10) Social History Smoking status: Current every day smoker Exam Constitutional Vital Signs, click to edit/add: Last Vital Signs Temp 98.5 F 07/19/23 17:14 Pulse 97 H 07/19/23 17:14 Resp 18 07/19/23 17:14 BP 111/83 07/19/23 17:14 Pulse Ox 99 07/19/23 17:14 O2 Del Method Room Air 07/19/23 17:14 Course Vital Signs Vital signs: Vital Signs Temperature 98.5 F 07/19/23 17:14 Pulse Rate 97 H 07/19/23 17:14 Respiratory Rate 18 07/19/23 17:14 Blood Pressure 111/83 07/19/23 17:14 Pulse Oximetry 99 07/19/23 17:14 Oxygen Delivery Method Room Air 07/19/23 17:14 Temperature 98.5 F 07/19/23 17:14 Pulse Rate 97 H 07/19/23 17:14 Respiratory Rate 18 07/19/23 17:14 Blood Pressure 111/83 07/19/23 17:14 Pulse Oximetry 99 07/19/23 17:14 Oxygen Delivery Method Room Air 07/19/23 17:14 Medical Decision Making MDM Narrative Medical decision making narrative: Patient was sent for x-rays of the lumbar spine prior to my evaluation, she has no midline lumbar spine tenderness. She does have some pain radiation into the right leg, consistent with sciatica. CT of the brain was added as the patient has Continued headache after taking her typical migraine medications. CT of the brain is unremarkable. I discussed with the patient treatment for her headache and low back pain by placing an IV with IV fluids and medications. She declined an IV. She drove herself to the ER and does not wish to call her to come pick her up. She declined intramuscular injections that would force her to require a ride to drive her home. She request Toradol and discharged so she can go home and rest . She has no focal neurodeficits in the ER, she is able to ambulate and drive herself to the ER. She was treated with Toradol, Decadron and Zofran in the ER and will be discharged home with Toradol, Robaxin, Zofran for home. Follow-up with PCP and return to the ER if symptoms change or worsen. I, Dr Armijo, have reviewed the above progress note and course of action in the ER; agree with the above. I have gone over history and physical, and discussed disposition and treatment plan with the patient. Lab Data Labs: Lab Results 07/19/23 Range/Units 17:22 Urine HCG, Qual Negative (NEGATIVE) Imaging Data CT scan - head: Radiologist's impression: ITS Impressions Lumbar Spine X-Ray 07/19/23 17:32 IMPRESSION: No definite fracture. CT of the lumbar spine is recommended if clinically warranted. Electronically authenticated by: JAMIL MENDES Date: 07/19/2023 18:[address] 07/19/23 17:37
[2023-07-19] MEDS: KETOROLAC TROMETHAMINE 60 MG/2 ML VIAL IM (17:57)
[2023-07-19] MEDS: DEXAMETHASONE SOD PHOS 10 MG/ML VIAL PO (17:57)
[2023-07-19] MEDS: ONDANSETRON 4 MG RAPDIS TABLET SL (17:57)
== END 2023-07-19 18:37 | disposition home or self-care (01) ==
PROVIDERS: Emergency Provider Emergency Medicine
DX: R51.9 Headache, unspecified (principal); M54.50 Low back pain, unspecified; E03.9 Hypothyroidism, unspecified; F17.200 Nicotine dependence, unspecified, uncomplicated
CPT/HCPCS: 70450; 72100; 84703; 96372; 99285; J1100

== ENCOUNTER 2023-11-05 15:55 | Emergency (ER) | payer MEDICARE, MEDICAID, SELFPAY ==
[2023-11-05 16:01] VITALS: BP 114/74; PULSE 85; TEMP 37.3; O2SAT 100; BMI 21.8
--- NOTE | 2023-11-05 16:04 | US_ITS ---
The [address] [address] Patient Name: HERMINIO COOPER MRN: [id number] date: 1995 Sex: F Assigned Patient Location: ER Current Patient Location: Accession/Order Number: [id number] Exam Date: 11/05/2023 17:15 Report Date: 11/05/2023 19:07 At the request of: KRISTI AKERS Procedure: US OB transvaginal US OB transvaginal HISTORY: pelvic pain after fall, 7 weeks preg COMPARISONS: None TECHNIQUE: Transvaginal and transabdominal imaging the pelvis was performed. FINDINGS: There is a gestational sac, yolk sac, pole and a heartbeat of 122 bpm. The crown-rump length is 0.53 cm. Mean sac diameter is 1.78 cm. The gestational age based on this ultrasound is 6 weeks 2 days with estimated date of delivery of 06/28/2024. RIGHT OVARY: There is normal vascular flow to the right ovary. There is a corpus luteum follicle on the right ovary measuring 1.7 cm. The right ovary measures 3.0 x 2.8 x 2.7 cm. LEFT OVARY: Within normal limits without suspicious masses or cyst. There is normal blood flow. The left ovary measures 2.5 x 1.4 x 2.1 cm. OTHER:There is no significant free fluid in the pelvis. Cervical length is 3.4 cm without funneling. US/US OB transvaginal IMPRESSION: Gestational sac with a yolk sac, pole and heartbeat. Gestational age is 6 weeks 2 days with estimated date of delivery of 06/28/2024. Electronically authenticated by: MONTEZ PANIAGUA Date: 11/05/2023 19:07
--- NOTE | 2023-11-05 16:04 | XR_ITS ---
The [address] [address] Patient Name: HERMINIO COOPER MRN: [id number] date: 1995 Sex: F Assigned Patient Location: ER Current Patient Location: ER Accession/Order Number: [id number] Exam Date: 11/05/2023 16:40 Report Date: 11/05/2023 18:07 At the request of: KRISTI AKERS Procedure: XR knee LT 3V EXAM: XR knee LT 3V HISTORY: The patient is a 28-year-old female. Fall COMPARISON: None. FINDINGS: The left knee is radiographically negative with no evidence of fracture, dislocation, joint space narrowing, osteophytes, or other osseous or articular abnormalities. XR/XR knee LT 3V IMPRESSION: Negative. Electronically authenticated by: REYNALDO RAMÍREZ Date: 11/05/2023 18:07
--- NOTE | 2023-11-05 16:05 | ED.GENADUL1 ---
HPI HPI - General Adult General Chief complaint: Extremity Injury, Lower Stated complaint: LOWER EXTREMITY INJURY, LEFT Time Seen by Provider: 11/05/23 15:57 History of Present Illness HPI narrative: Patient is a 28-year-old female who presents to the emergency department for evaluation of left knee pain after a fall. She states she tripped and fell down approximately 5 stairs and believes she may have twisted her left knee. She denies head injury or loss of consciousness. She has no pain to the neck or back. She is 7 weeks . No medications taken prior to arrival. Only when prompted directly, the patient states she is now having pelvic pain after falling. She has not yet had an ultrasound for this and is due to have 1 upcoming. She has not had any vaginal bleeding. She reports most of her pain in the proximal tibia and knee. She states her helped her to her vehicle and she drove herself to the ER. Related Data Home Medications ?Medication ?Instructions ?Recorded ?Confirmed buspirone 10 mg tablet 10 mg PO DAILY 01/22/23 07/19/23 sertraline 100 mg tablet 100 mg PO DAILY 01/22/23 07/19/23 levothyroxine 100 mcg tablet 100 mcg PO DAILY 02/15/23 07/19/23 norethindrone (contraceptive) 0.35 0.35 mg PO DAILY 05/28/23 07/19/23 mg tablet Previous Rx's ?Medication ?Instructions ?Recorded ketorolac 10 mg tablet 10 mg PO TID PRN pain #10 tabs 07/19/23 methocarbamol 750 mg tablet 750 mg PO TID PRN pain #20 tabs 07/19/23 ondansetron 4 mg disintegrating 4 mg PO Q6H PRN nausea and 07/19/23 tablet vomiting #12 tabs acetaminophen 500 mg capsule 1,000 mg (2 x 500 mg) PO Q8H PRN 11/05/23 pain #15 caps Allergies Allergy/AdvReac Type Severity Reaction Status Date / Time No Known Drug Allergies Allergy Verified 11/05/23 16:06 Opioid HPI Opioid Management Most Recent Opioid Data: Last Pain Scale 7 11/05/23 16:11 Last MAR Pain Assessment 11/05/23 16:11 Ur Phencyclidine Scrn Negative (NEGATIVE) 03/06/23 02:21 Review of Systems ROS Constitutional Denies: fever or chills Ears, nose, mouth, and throat Denies: throat pain or nasal congestion Cardiovascular Denies: chest pain Respiratory Denies: shortness of breath Gastrointestinal Reports: abdominal pain; Denies: nausea or vomiting Genitourinary Denies: painful urination Musculoskeletal Reports: extremity pain, extremity swelling, joint pain and limited range of motion; Denies: back pain or neck pain Integumentary/Breast Denies: rash Neurological Denies: headache Hematologic/Lymphatic Denies: easy bruising or easy bleeding [facility] Medical History (Updated 11/05/23 @ 18:12 by PRASANNA Reyes) Hypothyroid ?E03.9 - Hypothyroidism, unspecified (ICD-10) Social History Smoking status: Current every day smoker Exam Narrative Exam Narrative: Gen.: Awake, alert, in no distress Head: Normocephalic, atraumatic ENT: Moist mucous membranes, No facial or dental injury. C-spine nontender with full range of motion Respiratory: No respiratory distress, lungs clear bilaterally Cardio: Regular rate and rhythm Gastrointestinal: Abdomen is soft, nondistended and nontender to palpation Extremities: No appreciable swelling, ecchymosis or obvious deformity of the left knee. Patient is able to fully extend her left knee on the exam cart with 2+ left DP pulse. Normal sensation noted to the toes Psych: Normal mood and affect Neuro: No focal neuro deficit Skin: Warm, dry, intact Constitutional Vital Signs, click to edit/add: Last Vital Signs Temp 99.1 F 11/05/23 16:01 Pulse 71 11/05/23 17:53 Resp 18 11/05/23 17:53 BP 113/72 11/05/23 17:53 Pulse Ox 100 11/05/23 17:53 O2 Del Method Room Air 11/05/23 16:01 Course Vital Signs Vital signs: Vital Signs Temperature 99.1 F 11/05/23 16:01 Pulse Rate 85 11/05/23 16:01 Respiratory Rate 18 11/05/23 16:01 Blood Pressure 114/74 11/05/23 16:01 Pulse Oximetry 100 11/05/23 16:01 Oxygen Delivery Method Room Air 11/05/23 16:01 Temperature 99.1 F 06/15/24 16:01 Pulse Rate 71 11/05/23 17:53 Respiratory Rate 18 11/05/23 17:53 Blood Pressure 113/72 11/05/23 17:53 Pulse Oximetry 100 11/05/23 17:53 Oxygen Delivery Method Room Air 11/05/23 16:01 Medical Decision Making MDM Narrative Medical decision making narrative: Knee x-rays reviewed by the radiologist which are unremarkable. Exam is consistent with knee sprain. Abdomen is soft and benign but the patient is reporting early with no previous ultrasound and abdominal pain since the fall. Ultrasound shows intrauterine gestation at approximately 6 weeks with heart tones noted. No other acute abnormalities identified. Blood work is stable. Patient with no vaginal bleeding or fluid leakage in the ER. She is discharged home to take Tylenol. She was placed in Knee immobilizer and Waldo wrap with crutches for home. Rest, ice, elevate. She is neurovascularly intact at time of discharge. Medical Records Medical records reviewed: Yes I reviewed the patient's medical records Lab Data Lab results reviewed: Yes I reviewed the patient's lab results Labs: Lab Results 11/05/23 Range/Units 16:14 WBC 6.7 (4.0-11.0) 10^3/uL RBC 4.38 (4.20-5.40) 10^6/uL Hgb 13.1 (12.0-16.0) g/dL Hct 38.3 (36.0-48.0) % MCV 87.4 (81.0-99.0) fL MCH 29.9 (26.7-34.0) pg MCHC 34.2 (29.9-35.2) g/dL RDW 12.2 (11.0-15.0) % Plt Count 218 (150-450) 10^3/uL MPV 9.1 L (9.5-13.5) fL Neut % (Auto) 69.2 (43.0-75.0) % Lymph % (Auto) 21.8 (20.5-60.0) % [place] % (Auto) 8.3 (1.7-12.0) % Eos % (Auto) 0.3 L (0.9-7.0) % Baso % (Auto) 0.2 (0.2-2.0) % Neut # (Auto) 4.6 (1.4-6.5) 10^3/uL Lymph # (Auto) 1.5 (1.2-3.8) 10^3/uL [place] # (Auto) 0.6 (0.3-0.8) 10^3/uL Eos # (Auto) 0.0 (0.0-0.7) 10^3/uL Baso # (Auto) 0.0 (0.0-0.1) 10^3/uL Abs Immat Gran (auto) 0.01 (0.00-0.03) 10^3/uL Imm/Tot Granulo (auto) 0.2 (0.0-0.5) % HCG, Quant [id number] mIU/mL Blood Type AB Positive Imaging Data XR knee: Attestation: I have reviewed the pertinent imaging results. Radiologist's impression: ITS Impressions Knee X-Ray 11/05/23 16:04 IMPRESSION: Negative. Electronically authenticated by: REYNALDO RAMÍREZ Date: 11/05/2023 18:07 Discharge Plan Discharge Stand Alone Forms: Portal Instructions Chief Complaint: Extremity Injury, Lower Clinical Impression: Left knee sprain, Intrauterine , Fall Patient Disposition: Home, Self-Care Time of Disposition Decision: 18:12 Condition: Good Prescriptions / Home Meds: New acetaminophen 500 mg capsule 1,000 mg PO Q8H PRN (Reason: pain) Qty: 15 0RF No Action ketorolac 10 mg tablet 10 mg PO TID PRN (Reason: pain) Qty: 10 0RF methocarbamol 750 mg tablet 750 mg PO TID PRN (Reason: pain) Qty: 20 0RF ondansetron 4 mg tablet,disintegrating 4 mg PO Q6H PRN (Reason: nausea and vomiting) Qty: 12 0RF buspirone 10 mg tablet 10 mg PO DAILY sertraline 100 mg tablet 100 mg PO DAILY levothyroxine 100 mcg tablet 100 mcg PO DAILY norethindrone (contraceptive) 0.35 mg tablet 0.35 mg PO DAILY Print Language: Cameroonian Instructions: (ED), Knee Sprain (ED) Referrals: [facility] [Primary Care Provider] - 1 week
--- OUTSIDE RECORDS SUMMARY | 2023-11-05 16:08 | XMS_ITS | CCD ---
Author Organization [facility] Care Team Providers Care Manager Biostatistics Name Role Phone Unavailable Primary Care Provider Unavailabl e [facility], [facility] Care Provider Rekha Payton Primary Care Provider [facility], [facility] Lin vailable [facility] Services [facility], [facility] Lin vailable Rekha Payton Primary Care Provider [phone] Rekha Payton Primary Care Provider [phone] Tasha Mehta Primary Care Provider Tasha Mehta CNP Primary Care Provide r Tasha Mehta MD Primary Care Provider Tasha Mehta CNP Primary Care Provide r TASHA MEHTA Primary Care UnavailCHIO Pan Attending Unava ilable SPASICTASHA Primary Care Unavaila ble CHIO BLANCO Attending Unava ilable JAKOB FUNEZ Attending Unavailable SPASIC, TASHA RO Primary Care Unavaila ble SPASIC, TASHA RO Primary Care Unavaila ble SPATASHA PAREDES Primary Care Unavaila ble ARNLISBETH LYNNE Attending Unavailable SPASICTASHA Primary Care Unavaila ble LISBETH LOUIS Attending Unavailable SPASICTASHA Primary Care Unavaila ELIAS Carvajal Attending Unavailabl e Spasic , Tasha Primary Care Provider SPASIC, TASHA Primary Care Unavailable TITUS, ARLENE Referring Unavailable TITUS, ARLENE Attending Unavailable SPASIC, TASHA Primary Care Unavailable TITUS, ARLENE Attending Unavailable MARRUFO, TASHA S Referring Unavailable TITSU, ARLENE Attending Unavailable SPASIC, TASHA Referring Unavailable SPASIC, TASHA Primary Care Unavailable TITUS, ARLENE Attending Unavailable SPASIC, TASHA Referring Unavailable SPASIC, TASHA Primary Care Unavailable Spasic Tasha RUSH Primary Care Provider SPASIC, TASHA Attending Unavailable SPASIC, TASHA Referring Unavailable SPASIC, TASHA Primary Care Unavailable SPASIC, TASHA Attending Unavailable SPASIC, TASHA Referring Unavailable SPASIC, TASHA Primary Care Unavailable LAKSHMIPATHY, NARENDRANATH Attending Unava ilable SPASIC, TASHA Referring Unavailable SPASIC, TASHA Primary Care Unavailable LAKSHMIPATHY, NARENDRANATH Attending Unava ilable LAKSHMIPATHY, NARENDRANATH Referring Unava ilable SPASIC, TASHA Primary Care Unavailable PRICEMARYLIN Kim Attending Unavailable PRICE, MARYLIN Referring Unavailable SPASIC, TASHA Primary Care Unavailable SPASIC, TASHA Primary Care Unavailable ULI BEJARANO Attending Unavailable PRICE, MARYLIN Attending Unavailable PRICE, MARYLIN Referring Unavailable SPASIC, TASHA Primary Care Unavailable SPASIC, TASHA Attending Unavailable SPASIC, TASHA Referring Unavailable SPASIC, TASHA Primary Care Unavailable SPASIC, TASHA Primary Care Unavailable ZELALEM HAMPTON Attending Unavailable PRICE, MARYLIN Attending Unavailable PRICE MARYLIN Referring Unavailable SPASIC, TASHA Primary Care Unavailable SPASIC, TASHA Attending Unavailable SPASIC, TASHA Referring Unavailable SPASIC, TASHA Primary Care Unavailable PRICEMARYLIN Kim Attending Unavailable SELF, SELF Referring Unavailable SPASIC, TASHA Primary Care Unavailable PRICEMARYLIN Kim Attending Unavailable PRICE, MARYLIN Referring Unavailable SPASIC, TASHA Primary Care Unavailable PRICE, MARYLIN Attending Unavailable PRICE, MARYLIN Referring Unavailable SPASIC, TASHA Primary Care Unavailable PRICE, MARYLIN Attending Unavailable PRICE, MARYLIN Referring Unavailable SPASIC, TASHA Primary Care Unavailable PRICE, MARYLIN Attending Unavailable PRICE, MARYLIN Referring Unavailable SPASIC, TASHA Primary Care Unavailable PRICE, MARYLIN Attending Unavailable PRICE, MARYLIN Referring Unavailable SPASIC, TASHA Primary Care Unavailable PRICE, MARYLIN Attending Unavailable PRICE, MARYLIN Referring Unavailable SPASIC, TASHA Primary Care Unavailable PRICE, MARYLIN Attending Unavailable PRICE, MARYLIN Referring Unavailable SPASIC, TASHA Primary Care Unavailable SPASIC, TASHA Primary Care Unavailable SPASIC, TASHA Primary Care Unavailable PRICE, MARYLIN Attending Unavailable SELF, SELF Referring Unavailable PRICE, MARYLIN Attending Unavailable PRICE, MARYLIN Referring Unavailable SPASIC, TASHA Primary Care Unavailable SPASIC, TASHA Primary Care Unavailable ZELALEM HAMPTON Attending Unavailable SPASIC, TASHA Primary Care Unavailable KALAPODIСветлана, ANTOINE Attending Unavailable PRICE, MARYLIN Attending Unavailable PRICE, MARYLIN Referring Unavailable SPASIC, TASHA Primary Care Unavailable PRICE, MARYLIN Attending Unavailable PRICE, MARYLIN Referring Unavailable SPASIC, TASHA Primary Care Unavailable PRICE, MARYLIN Attending Unavailable PRICE, MARYLIN Referring Unavailable SPASIC, TASHA Primary Care Unavailable PRICE, MARYLIN Attending Unavailable PRICE, MARYLIN Referring Unavailable SPASIC, TASHA Primary Care Unavailable PRICE, MARYLIN Attending Unavailable PRICE, MARYLIN Referring Unavailable SPASIC, TASHA Primary Care Unavailable PRICE, MARYLIN Attending Unavailable PRICE, MARYLIN Referring Unavailable SPASIC, TASHA Primary Care Unavailable SPASIC, TASHA Attending Unavailable SPASIC, TASHA Referring Unavailable SPASIC, TASHA Primary Care Unavailable PRICE, MARYLIN Attending Unavailable SELF, SELF Referring Unavailable SPASIC, TASHA Primary Care Unavailable Jose Luis ERAZO Referring Unavailable [facility], Services Primary Care Provider [phone] Spasic, FURNITURE DUSTER-C Tasha Fry Attending Provider [id number] Spasic, FURNITURE DUSTER-C Tasha E Attending Provider [phone] [phone] Spasic, Tasha E Attending Unavailable Spasic, Tasha E Admitting Unavailable Spasic, FURNITURE DUSTER-C Tasha E Attending Provider Spasic, FURNITURE DUSTER-C Tasha E Attending Provider [phone] CHELLY MO Attending Unavailable Spasic, Tasha E Attending Unavailable NON STAFF Primary Care Unavailable Spasic, Tasha E Admitting Unavailable Spasic, Tasha E Admitting Unavailable Spasic, Tasha E Attending Unavailable [facility], Services Primary Care Unavaila Jim Durbin Attending Unavailab Jim Jean Admitting Unavailab Tasha Contreras Admitting Unavailable [facility], Services Primary Care Unavaila Tasha Scott Attending Unavailable Tasha Mehta Attending Unavailable Tasha Mehta Admitting Unavailable Allergies Allergy Classification Reported Allergen(s) Allergy Type Date of Onset Reaction(s) Facility (20 sources) coconut allergenic extract; Translations: [COCONUT OIL] Drug Allergy 0 [facility] (11 sources) Buprenorphine / Naloxone; Translations: [BUPRENORPHINE-NAL OXONE] Drug Allergy 2 GI Intolerance, Dyspepsia [facility] (3 sources) Coconut Oil Drug Allergy 0 [facility] Medications Current Medications Medication Drug Class(es) Dates Sig (Normalized) Sig (Original) acetaminophen 500 mg oral tablet (20 sources) take 2 tablets by mouth every six hours as needed acetaminophen 500 MG tablet Take 1,000 mg by mouth every 6 hours as needed for Pain. 0 Active acetaminophen 325 mg / oxyCODONE hydrochloride 5 mg oral tablet (17 sources) Opioid Agonist Start: 01-12-2022 oxyCODONE-acetamino phen 5-325 MG per tablet 1 tablet as needed 0 01/12/2022 Active Start: 11-12-2021 End: 01-05-2022 take 1 tablet by mouth every six hours as needed oxyCODONE-acetaminophen 5-325 MG per tablet Indications: Closed fracture of sacrum and coccyx, initial encounter Take 1 tablet by mouth every 6 hours as needed for up to 5 days. 20 tablet 0 12/01/2021 12/06/2021 amoxicillin 500 mg oral capsule (1 source) Penicillin-class Antibacterial Start: 12-15-2019 End: 12-25-2019 take 1 capsule by mouth every twelve hours amoxicillin 500 MG capsule Take 1 capsule by mouth every 12 hours for 10 days. 20 capsule 0 12/15/2019 12/25/2019 Active baclofen 10 mg oral tablet (1 source) gamma-Aminobutyric Acid-ergic Agonist Start: 02-03-2022 End: 03-05-2022 take 0.5 tablet by mouth twice daily as needed for muscle spasms baclofen 10 MG tablet Take 0.5 tablets by mouth 2 times daily as needed for Muscle spasms. 45 tablet 3 02/03/2022 03/05/2022 Active benzocaine 200 mg/ml / menthol 5 mg/ml topical spray (3 sources) Standardized Chemical Allergen Start: 03-23-2019 Benzocaine-Menth ol (Dermoplast (With Menthol)) 20-0.5 % Aerosol Active 1 APPLIC TOPICAL PRN March 23, 2019 12:00am brexpiprazole 2 mg oral tablet (5 sources) Atypical Antipsychotic Start: 12-16-2021 take 1 tablet by mouth once daily Rexulti 2 MG tablet Take 2 mg by mouth daily. 0 12/16/2021 Active brompheniramine maleate 0.4 mg/ml / dextromethorphan hydrobromide 2 mg/ml / pseudoephedrine hydrochloride 6 mg/ml oral solution (1 source) alpha-Adrenergic Agonist, Uncompetitive O-anuvaq-Z-aspartate Receptor Antagonist, Sigma-1 Agonist Start: 02-21-2021 End: 03-03-2021 take 5 mL by mouth four times daily as needed brompheniramine- pseudoePHEDrine- DM 2-30-10 mg/5 mL syrup Indications: Viral illness Take 5 mL by mouth 4 (four) times a day as needed . 200 mL 0 02/21/2021 03/03/2021 Active busPIRone hydrochloride 10 mg oral tablet (6 sources) Start: 12-15-2021 take 1 tablet by mouth twice daily busPIRone 10 MG tablet Take 10 mg by mouth 2 times daily. 0 12/15/2021 Active Start: 08-10-2021 take 1 tablet by alyssia twice daily busPIRone (BUSPAR) 10 MG tablet Take 10 mg by mouth 2 (two) times a day . 0 08/10/2021 Active cephalexin 500 mg oral capsule (8 sources) Cephalosporin Antibacterial Start: 01-05-2021 End: 01-15-2021 take 1 capsule by mouth three times daily cephALEXin (KEFLEX) 500 MG capsule Indications: Ingrown toenail of left foot with infection Take 1 (one) capsule (500 mg total) by mouth 3 (three) times a day for 10 days . 30 capsule 0 01/05/2021 01/15/2021 Active Start: 10-04-2019 End: 10-11-2019 cephALEXin (KEFLEX) capsule 500 mg Start: 08-14-2019 End: 08-19-2019 take 1 capsule by mouth every eight hours cephALEXin 250 MG capsule Take 1 capsule by mouth every 8 hours for 5 days. 15 capsule 0 08/14/2019 08/19/2019 Active Start: 05-31-2019 End: 06-07-2019 take 1 capsule by mouth every twelve hours cephALEXin 500 MG Cap capsule Take 1 capsule by mouth every 12 hours for 7 days. 14 capsule 0 05/31/2019 06/07/2019 Active Start: 05-03-2018 End: 05-25-2018 take 500 mg by mouth three times daily Cephalexin Discontinued 500 MG PO Three times daily May 03, 2018 1:00am May 25, 2018 8:07am cyclobenzaprine hydrochloride 5 mg oral tablet (20 sources) Muscle Relaxant Start: 10-02-2021 take 1 tablet by mouth twice daily as needed cyclobenzaprine 5 MG tablet Take 5 mg by mouth 2 times daily as needed. 0 10/02/2021 Active Start: 01-09-2021 End: 01-05-2022 take 1 tablet by mouth three times daily as needed for muscle spasms cyclobenzaprine 10 MG tablet Take 1 tablet by mouth 3 times daily as needed for Muscle spasms. 21 tablet 0 01/09/2021 01/05/2022 Discontinued (Therapy completed) DULoxetine 30 mg delayed release oral capsule (10 sources) Serotonin and Norepinephrine Reuptake Inhibitor Start: 04-01-2021 End: 06-30-2021 take 1 capsule by mouth once daily DULoxetine [address] Particles capsule DR Take 1 capsule by mouth daily. 30 capsule 2 04/01/2021 Active estradiol cypionate 5 mg/ml injectable solution (5 sources) Estrogen estradiol cypionate (DEPO-ESTRADIOL) 5 mg/mL injection Inject into the shoulder, thigh, or buttocks every 28 days . 0 Active 2 ml famotidine 10 mg/ml injection (10 sources) Histamine-2 Receptor Antagonist Start: 05-30-2021 faMOTIdine (PEPCID) injection 20 mg Start: 05-30-2021 End: 06-06-2021 take 1 tablet by mouth twice daily famotidine 40 MG tablet Take 1 tablet by mouth 2 times daily for 7 days. 14 tablet 0 05/30/2021 Active ferrous sulfate 325 mg oral tablet (6 sources) Start: 03-23-2019 take 325 mg by mouth once daily Ferrous Sulfate Active 325 MG PO Daily March 23, 2019 12:00am Start: 11-26-2017 End: 03-24-2018 take 325 mg by mouth once daily Ferrous Sulfate Discontinued 325 MG PO Daily November 26, 2017 12:00am March 24, 2018 4:04pm gabapentin 100 mg oral capsule (20 sources) Anti-epileptic Agent Start: 10-01-2021 take 1-2 capsules by mouth three times daily as needed gabapentin 100 MG capsule TAKE 1-2 CAPSULES BY MOUTH 3 TIMES A DAY NEEDED 0 10/01/2021 Active ibuprofen 800 mg oral tablet (20 sources) Nonsteroidal Anti-inflammatory Drug Start: 03-24-2018 End: 03-22-2019 take 800 mg by mouth every six hours Ibuprofen Active 800 MG PO Q6H March 23, 2019 12:00am Start: 11-26-2017 End: 03-24-2018 Ibuprofen Discontinued 600 M G PO every 6 to 8 hours November 26, 2017 12:00am March 24, 2018 4:04pm Lanolin (3 sources) Start: 03-23-2019 Lanolin (Masood-O -Soothe) Cream Active 1 APPLIC TOPICAL PRN March 23, 2019 12:00am levothyroxine sodium 0.1 mg oral tablet (20 sources) l-Thyroxi ne Start: 05-03-2018 take 100 ug by mouth once daily Levothyroxine Active 100 MCG PO daily May 03, 2018 1:00am End: 04-01-2021 levothyroxine 88 MCG tablet 1 tablet on an empty stomach in the morning 0 04/01/2021 Discontinued (Therapy completed) levothyroxine 75 MCG Tab tablet Take 100 mcg by mouth daily. 0 Active take 1 tablet by alyssia th once daily levothyroxine 75 MCG Tab tablet Take 75 mcg by mouth daily. 0 Active 1 ml medroxyPROGESTERone acetate 150 mg/ml prefilled syringe (20 sources) Progestin Start: 01-13-2021 medroxyPROGESTERone acetate 150 MG/ML Suspension Prefilled Syringe inj syringe Inject intramuscularly every 90 Days. 0 01/13/2021 Active nabumetone 500 mg oral tablet (5 sources) Nonsteroidal Anti-inflammatory Drug Start: 01-05-2022 End: 02-04-2022 take 1 tablet by mouth twice daily nabumetone 500 MG tablet Indications: Compliance with medication regimen , Lumbar spondylosis , Sacroiliitis, not elsewhere classified , Closed fracture of sacrum, unspecified portion of sacrum, sequela , Myofascial pain , Physical deconditioning Take 1 tablet by mouth 2 times daily. 60 tablet 1 01/05/2022 02/04/2022 Active nitrofurantoin, macrocrystals 25 mg / nitrofurantoin, monohydrate 75 mg oral capsule (1 source) Nitrofuran Antibacterial Start: 08-22-2021 End: 08-29-2021 take 1 capsule by mouth twice daily nitrofurantoin, macrocrystal-monohydra te, (Macrobid) 100 MG capsule Indications: Acute cystitis without hematuria Take 1 (one) capsule (100 mg total) by mouth 2 (two) times a day for 7 days . 14 capsule 0 08/22/2021 08/29/2021 Active ondansetron 4 mg oral tablet (20 sources) Serotonin-3 Receptor Antagonist Start: 11-03-2021 take 5 mg by mouth three times daily as needed ondansetron 4 MG tablet Take 5 mg by mouth 3 times daily as needed. 0 11/03/2021 Active Start: 10-11-2021 End: 10-11-2021 ondansetron (ZOFRAN-ODT) disintegrating tablet 4 mg Start: 05-30-2021 End: 05-30-2021 ondansetron 4mg/2ml (ZOFRAN) injection 4 mg Start: 02-04-2021 End: 10-11-2021 take 1 tablet by mouth every four hours as needed ondansetron 4 MG Tab Dispersible tablet Take 1 tablet by mouth every 4 hours as needed for Nausea. Place on tongue 30 tablet 0 10/11/2021 Active Pnv,Calcium 49-Gfgc-Wqtyx Acid (3 sources) Start: 03-22-2019 take 1 tablet by mouth once daily Pnv,Calcium 12-Olrs-Lflev Acid Active 1 TAB PO Daily March 22, 2019 12:00am sertraline 50 mg oral tablet (20 sources) Serotonin Reuptake Inhibitor Start: 12-09-2020 take 1 tablet by mouth once daily sertraline (ZOLOFT) 50 MG tablet Take 50 mg by mouth daily . 0 12/09/2020 Active Start: 04-30-2020 take 3 tablets by mo uth once daily sertraline 25 MG tablet Take 75 mg by mouth daily. 0 04/30/2020 Active Start: 04-30-2020 sertraline 25 MG tablet sulfamethoxazole 800 mg / trimethoprim 160 mg oral tablet (7 sources) Dihydrofolate Reductase Inhibitor Antibacterial, Sulfonamide Antimicrobial Start: 08-20-2021 End: 08-27-2021 take 1 tablet by mouth twice daily sulfamethoxazole-trimethoprim (BACTRIM DS,SEPTRA DS) 800-160 mg per tablet Indications: Dysuria Take 1 (one) tablet by mouth 2 (two) times a day for 7 days . 14 tablet 0 08/20/2021 08/27/2021 Active Start: 10-04-2019 End: 10-05-2019 sulfamethoxazole-trimethopri m (BACTRIM DS) 800-160 MG per tablet 1 tablet Start: 10-04-2019 End: 10-11-2019 take 1 tablet by mouth twice daily sulfamethoxazole-trimethoprim (Bactrim D S) 800-160 MG per tablet Take 1 tablet by mouth 2 times daily for 7 days. 14 tablet 0 10/04/2019 10/11/2019 Active Start: 03-24-2018 End: 04-03-2018 take 1 tablet by mouth twice daily Sulfamethoxazole-Trimethoprim (Bactrim D s) 800-160 mg tablet Discontinued 1 TAB PO Twice daily 20 March 24, 2018 12:00am April 03, 2018 1:02am witch aguilar 500 mg/ml medicated pad (3 sources) Start: 03-23-2019 Glycerin-Witch Aguilar (A.E.R. Witch Aguilar) 12.5-50 % Pads, Medicated Active 1 PAD TOPICAL PRN March 23, 2019 12:00am Completed/Discontinued Medications Medication Drug Class(es) Dates Sig (Normalized) Sig (Original) acetaminophen 325 mg / HYDROcodone bitartrate 5 mg oral tablet (4 sources) Opioid Agonist Start: 12-26-2019 End: 12-26-2019 hydroCODone-acetam inophen (NORCO) 5-325 MG per tablet 1 tablet Start: 03-24-2018 End: 05-25-2018 Hydrocodone-Acetaminophen (N orco) 5-325 mg tablet Discontinued 1 TAB PO every 6 to 8 hours 10 2 March 24, 2018 May 25, 2018 8:07am bacitracin 0.5 unt/mg topica l ointment (1 source) Start: 05-12-2020 End: 05-12-2020 bacitracin ointment 1 Application Start: 05-12-2020 End: 05-12-2020 bacitracin ointment 1 Applic ation bacitracin 0.5 unt/mg / neomycin 0.0035 mg/mg / polymyxin b 10 unt/mg topical ointment (1 source) Aminoglycoside Antibacterial, Polymyxin-class Antibacterial Start: 12-26-2019 End: 12-26-2019 zvnaumtg-racifcergl-svabbbug n (NEOSPORIN) 400-5-5000 ointment benzocaine 140 mg/ml / butamben 20 mg/ml / tetracaine 20 mg/ml mucosal spray (2 sources) Collette Local Anesthetic, Standardized Chemical Allergen Start: 01-12-2020 End: 01-12-2020 tetracaine-benzocaine (CETAC SCOTT) topical spray 1 spray Start: 01-12-2020 End: 01-12-2020 tetracaine-benzocaine (CETAC SCOTT) topical spray betamethasone 3 mg/ml / betamethasone acetate 3 mg/ml injectable suspension (6 sources) Corticosteroid Start: 12-09-2021 End: 12-09-2021 betamethasone acetate (CELESTONE) injection 12 mg Start: 11-25-2021 End: 11-25-2021 betamethasone acetate (ELISHA TONE) injection 12 mg 30 ml bupivacaine hydrochloride 5 mg/ml injection (1 source) Amide Local Anesthetic Start: 01-12-2020 End: 01-12-2020 bupivacaine (PF) (MARCAINE) 0.5 % injection 10 mL 30 ml bupivacaine hydrochloride 2.5 mg/ml / EPINEPHrine 0.005 mg/ml injection (1 source) alpha-Adrenergic Agonist, beta-Adrenergic Agonist, Catecholamine, Amide Local Anesthetic Start: 12-26-2019 End: 12-26-2019 bupivacaine-epinep hrine (MARCAINE;SENSORCA INE W/EPI) 0.25% -1:[id number] injection calcium carbonate 1250 mg / cholecalciferol 200 unt oral tablet (20 sources) Vitamin D Start: 06-01-2018 End: 04-01-2021 take 1 tablet by mouth three times daily at mealtime RA HI CHELSEA 500-200 MG-UNIT Tab tablet take 1 tablet by mouth three times a day with meals 0 06/01/2018 04/01/2021 Discontinued (Therapy completed) Start: 05-25-2018 End: 03-22-2019 Calcium Carbonate-Vitamin D3 (Calcium 500 + D) 500 mg(1,250mg) -200 unit Tablet Discontinued 1 TAB PO Twice daily May 25, 2018 1:00am March 22, 2019 8:26am calcium chloride 0.0014 meq/ml / potassium chloride 0.004 meq/ml / sodium chloride 0.103 meq/ml / sodium lactate 0.028 meq/ml injectable solution (1 source) Start: 12-26-2019 End: 12-26-2019 lactated ringers IV solution ceFAZolin 1000 mg injection (1 source) Cephalosporin Antibacterial Start: 12-26-2019 End: 12-26-2019 ceFAZolin (ANCEF) injection celecoxib 200 mg oral capsule (3 sources) Nonsteroidal Anti-inflammatory Drug Start: 12-09-2021 End: 01-05-2022 take 1 capsule by mouth twice daily celecoxib 200 MG capsule Indications: Closed fracture of sacrum and coccyx, initial encounter Take 1 capsule by mouth 2 times daily. 60 capsule 11 12/09/2021 01/05/2022 Discontinued (Therapy completed) diazePAM 5 mg oral tablet (2 sources) Benzodiazepine Start: 01-29-2022 End: 01-29-2022 diazepam (VALIUM) tablet 5 mg diclofenac sodium 50 mg delayed release oral tablet (8 sources) Nonsteroidal Anti-inflammatory Drug Start: 04-01-2021 End: 01-05-2022 take 1 tablet by mouth twice daily at mealtime diclofenac sodium [address] Take 1 tablet by mouth 2 times daily with meals. 60 tablet 2 04/01/2021 01/05/2022 Discontinued (Therapy completed) dicyclomine hydrochloride 20 mg oral tablet (16 sources) Anticholinergic Start: 05-30-2021 End: 01-05-2022 take 1 tablet by mouth three times daily as needed for muscle spasms dicyclomine 20 MG tablet Take 1 tablet by mouth 3 times daily as needed for Abdominal Spasms. 8 tablet 0 05/30/2021 01/05/2022 Discontinued (Therapy completed) EPINEPHrine 0.01 mg/ml / lidocaine hydrochloride 10 mg/ml injectable solution (1 source) Antiarrhythmic, alpha-Adrenergic Agonist, beta-Adrenergic Agonist, Catecholamine, Amide Local Anesthetic Start: 08-14-2019 End: 08-14-2019 lidocaine-epineph rine 1%-1:[id number] injection 20 mL Start: 08-14-2019 End: 08-14-2019 lidocaine-epinephrine 1%-1:1 69400 injection 20 mL ethinyl estradiol 0.02 mg / norethindrone acetate 1 mg oral tablet (4 sources) Estrogen Start: 05-12-2020 End: 04-01-202106/11 1-20 MG-MCG tablet GI cocktail: alum/mag hydrox-simethicone(30ml )+lidocaine 2%(10ml) oral suspension 40 mL (1 source) Start: 05-30-2021 End: 05-30-2021 GI cocktail: alum/mag hydrox-simethicone( 30ml)+lidocaine 2%(10ml) oral suspension 40 mL 1 ml ketorolac tromethamine 30 mg/ml cartridge (2 sources) Nonsteroidal Anti-inflammatory Drug, Cyclooxygenase Inhibitor Start: 10-11-2021 End: 10-11-2021 ketorolac (TORADOL) injection 30 mg Start: 01-09-2021 End: 01-09-2021 ketorolac (TORADOL) injectio n 15 mg 10 ml lidocaine hydrochloride 10 mg/ml injection (6 sources) Antiarrhythmic, Amide Local Anesthetic Start: 12-09-2021 End: 12-09-2021 lidocaine (XYLOCAINE) 10 mg/mL injection 2 mL Start: 11-25-2021 End: 11-25-2021 lidocaine (XYLOCAINE) 10 mg/ mL injection 2 mL lidocaine (PF) 2 % 5 mL syringe (2 sources) Start: 01-22-2022 End: 01-29-2022 lidocaine (PF) 2 % 5 mL syringe methocarbamol 500 mg oral tablet (12 sources) Muscle Relaxant Start: 10-28-2021 End: 01-05-2022 take 1-2 tablets by mouth three times daily as needed for muscle spasms methocarbamol 500 MG tablet Take 1-2 tablets by mouth 3 times daily as needed (For muscle spasms). 15 tablet 0 10/28/2021 01/05/2022 Discontinued (Therapy completed) methylPREDNISolone 125 mg injection (1 source) Corticosteroid Start: 10-11-2021 End: 10-11-2021 methylPREDNISolone sodium succinate (SOLU-MEDROL) injection 125 mg Start: 10-11-2021 End: 10-11-2021 methylPREDNISolone sodium more ccinate (SOLU-MEDROL) injection 125 mg 24 hr metoprolol succinate 50 mg extended release oral tablet (3 sources) beta-Adrenergic Lulú Start: 03-24-2018 End: 05-03-2018 take 50 mg by mouth once daily Metoprolol Succinate Discontinued 50 MG PO Daily March 24, 2018 12:00am May 03, 2018 6:37pm NON-FORMULARY (14 sources) End: 04-01-2021 NON-FORMULARY control-does not know the name 0 04/01/2021 Discontinued (Therapy completed) NON-FORMULARY Bi rth control-does not know the name 0 Active promethazine hydrochloride 25 mg rectal suppository (20 sources) Phenothiazine Start: 05-30-2021 End: 01-05-2022 take 25 mg rectal route every six hours as needed promethazine 25 MG Suppository suppository Insert 1 suppository rectally every 6 hours as needed for Nausea / Vomiting (Nausea/Vomiting). 12 suppository 0 05/30/2021 01/05/2022 Discontinued (Therapy completed) Start: 08-15-2018 End: 04-01-2021 promethazine 25 MG Tab table t TAKE 1 TABLET BY MOUTH NEEDED EVERY 6-8 HOUR FOR NAUSEA OR VOMITING 2 08/15/2018 04/01/2021 Discontinued (Therapy completed) pseudoephedrine hydrochloride 30 mg oral tablet (1 source) alpha-Adrenergic Agonist Start: 04-22-2021 End: 08-20-2021 take 1 tablet by mouth every six hours as needed for congestion pseudoePHEDrine (SUDAFED) 30 MG tablet Indications: Acute maxillary sinusitis, recurrence not specified Take 1 (one) tablet (30 mg total) by mouth every 6 (six) hours as needed for congestion . 24 tablet 0 04/22/2021 08/20/2021 Discontinued (Therapy completed) 250 ml sodium chloride 9 mg/ml injection (2 sources) Start: 05-30-2021 End: 05-30-2021 sodium chloride 0.9% IV solution 1,000 mL Start: 12-26-2019 End: 12-26-2019 sodium chloride 0.9 % irriga tion traMADol hydrochloride 50 mg oral tablet (8 sources) Opioid Agonist Start: 10-11-2021 End: 01-05-2022 take 1 tablet by mouth every six hours as needed for pain traMADol 50 MG tablet Indications: Closed fracture of coccyx, initial encounter Take 1 tablet by mouth every 6 hours as needed for Moderate Pain for up to 5 days. 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 60 tablet 11 11/12/2021 12/08/2021 Discontinued Problems Active Problems Problem Classification Problem Date Documented Date Episodic/Chronic Blindness and vision defects (1 source) Transient visual loss, left eye; Translations: [Transient visual loss of left eye] Episodic Complications of surgical procedures or medical care (3 sources) Postprocedural hypothyroidism; Translations: [Postprocedural hypothyroidism] Onset: 06-09-2023 Chronic E Codes: Fall (6 sources) Accidental fall ; Translations: [Fall (on) (from) other stairs and steps, initial encounter] Onset: 12-28-2021 Episodic Genitourinary symptoms and ill-defined conditions (1 source) Dysuria; Translations: [Dysuria] Episodic Immunizations and screening for infectious disease (1 source) Contact with or exposure to other viral diseases; Translations: [Exposure to 2019 novel coronavirus] Episodic Malaise and fatigue (2 sources) Other malaise; Translations: [Other malaise] Onset: 01-05-2022 Episodic Menstrual disorders (1 source) Irregular menstruation, unspecified; Translations: [Irregular menstruation, unspecified] Onset: 09-01-2023 Chronic Mood disorders (7 sources) Bipolar I disorder; Translations: [Bipolar disorder, unspecified] Onset: 01-05-2022 01-05-2022 Chronic Nutritional deficiencies (1 source) Vitamin D deficiency, unspecified; Translations: [Vitamin D deficiency, unspecified] Onset: 01-06-2023 Chronic Other aftercare (1 source) Postoperative visit; Translations: [Encounter for postoperative care] Episodic Other aftercare (1 source) Patient encounter status; Translations: [Encounter for therapeutic drug level monitoring] Episodic Other connective tissue disease (1 source) Myofascial pain; Translations: [Myalgia, other site] Episodic Other connective tissue disease (4 sources) Myalgia, other site; Translations: [Myalgia, other site] Onset: 01-05-2022 Episodic Other fractures (1 source) Closed fracture of coccyx; Translations: [Fracture of coccyx, initial encounter for closed fracture] Episodic Other fractures (2 sources) Closed fracture of vertebral column; Translations: [Unspecified fracture of sacrum, subsequent encounter for fracture with routine healing] Episodic Other fractures (7 sources) Closed fracture of pelvis; Translations: [Unspecified fracture of sacrum, initial encounter for closed fracture] Episodic Other fractures (2 sources) Unspecified fracture of sacrum, sequela; Translations: [Unspecified fracture of sacrum, sequela] Onset: 01-05-2022 Episodic Other injuries and conditions due to external causes (1 source) Foreign body of foot; Translations: [Foreign body in right foot, initial encounter] Episodic Other nervous system disorders (3 sources) Chronic pain syndrome; Translations: [Chronic pain syndrome] Onset: 02-03-2022 Chronic Other nervous system disorders (1 source) Chronic pain syndrome; Translations: [Chronic pain syndrome] Onset: 02-03-2022 Chronic Other nervous system disorders (2 sources) Chronic pain due to trauma; Translations: [Chronic pain due to trauma] Onset: 10-28-2021 Chronic Other non-traumatic joint disorders (3 sources) Pain in right hip joint; Translations: [Pain in right hip] Episodic Other non-traumatic joint disorders (1 source) Shoulder pain; Translations: [Pain in right shoulder] Episodic Other non-traumatic joint disorders (2 sources) Pain in right hip; Translations: [Pain in right hip] Onset: 02-03-2022 Episodic Other skin disorders (1 source) Epidermoid cyst; Translations: [EIC (epidermal inclusion cyst)] Episodic Other skin disorders (1 source) Folliculitis; Translations: [Folliculitis of axilla] Episodic Other skin disorders (1 source) Paronychia of toe of left foot due to ingrown toenail; Translations: [Ingrowing nail] Episodic Other upper respiratory infections (1 source) Streptococcal sore throat; Translations: [Pharyngitis due to Streptococcus species] Episodic Paralysis (3 sources) Compression of cauda equina co-occurrent and due to lumbar vertebral stenosis; Translations: [Cauda equina syndrome] Onset: 10-20-2021 Chronic Poisoning by other medications and drugs (1 source) Adverse reaction to drug; Translations: [Medication reaction, initial encounter] Episodic Residual codes; unclassified (1 source) Preoperative state; Translations: [Preoperative clearance] Episodic Residual codes; unclassified (2 sources) Other specified personal risk factors, not elsewhere classified; Translations: [Other specified personal risk factors, not elsewhere classified] Onset: 01-05-2022 Episodic Residual codes; unclassified (1 source) Less than 8 weeks gestation of ; Translations: [Less than 8 weeks gestation of ] Onset: 10-27-2023 Episodic Skin and subcutaneous tissue infections (2 sources) Cellulitis of left axilla; Translations: [Abscess] Episodic Spondylosis; intervertebral disc disorders; other back problems (12 sources) Lumbar spondylosis; Translations: [Spondylosis without myelopathy or radiculopathy, lumbar region] Onset: 01-05-2022 Chronic Substance-related disorders (1 source) Smoker; Translations: [Nicotine dependence, unspecified, uncomplicated] Chronic Unclassified (1 source) Sebaceous cyst of skin; Translations: [Sebaceous cyst of left axilla] Unclassified (1 source) Preprocedural examination done; Translations: [Pre-op exam] Unclassified (1 source) Low back pain, unspecified; Translations: [Low back pain, unspecified] Onset: 01-24-2022 Urinary tract infections (1 source) Acute cystitis; Translations: [Acute cystitis without hematuria] Episodic Viral infection (1 source) Viral disease; Translations: [Viral infection, unspecified] Episodic Past or Other Problems Problem Classification Problem Date Documented Da te Episodic/Chronic Abdominal pain (6 sources) Pain in female pelvis; Translations: [Flank pain] Onset: 05-30-2021 Episodic Disorders of teeth and jaw (1 source) Toothache; Translations: [Pain, dental] Episodic Mood disorders (20 sources) Mood disorders Onset: 04-01-2021 04-01-2021 Nausea and vomiting (3 sources) Nausea and vomiting; Translations: [Nausea with vomiting, unspecified] Onset: 05-30-2021 Episodic Other fractures (2 sources) Unspecified fracture of sacrum, initial encounter for closed fracture; Translations: [Unspecified fracture of sacrum, initial encounter for closed fracture] Onset: 12-08-2021 Episodic Other fractures (2 sources) Fracture of coccyx, initial encounter for closed fracture; Translations: [Fracture of coccyx, initial encounter for closed fracture] Onset: 12-08-2021 Episodic Other fractures (2 sources) Unspecified fracture of sacrum, subsequent encounter for fracture with routine healing; Translations: [Unspecified fracture of sacrum, subsequent encounter for fracture with routine healing] Onset: 10-14-2021 Episodic Other fractures (2 sources) Fracture of coccyx, subsequent encounter for fracture with routine healing; Translations: [Fracture of coccyx, subsequent encounter for fracture with routine healing] Onset: 10-14-2021 Episodic Other gastrointestinal disorders (2 sources) Slow transit constipation; Translations: [Slow transit constipation] Onset: 05-30-2021 Episodic Other gastrointestinal disorders (1 source) Slow transit constipation; Translations: [Slow transit constipation] Onset: 05-30-2021 Episodic Other nervous system disorders (1 source) Facial paresthesia; Translations: [Facial paresthesia] Episodic Other nervous system disorders (1 source) Paresthesia of foot ; Translations: [Paresthesia of right foot] Episodic Other nervous system disorders (1 source) Paresthesia of upper limb; Translations: [Paresthesia of right arm] Episodic Other non-traumatic joint disorders (2 sources) Pain in right shoulder; Translations: [Pain in right shoulder] Onset: 11-12-2021 Episodic Other skin disorders (20 sources) Mass of soft tissue; Translations: [Other specified soft tissue disorders] Onset: 12-14-2019 12-14-2019 Episodic Spondylosis; intervertebral disc disorders; other back problems (4 sources) Lumbar radiculopathy; Translations: [Radiculopathy, lumbar region] Onset: 10-14-2021 Episodic Sprains and strains (1 source) Low back strain; Translations: [Strain of muscle, fascia and tendon of lower back, initial encounter] Episodic Unclassified (3 sources) Onset: 01-29-2022 01-29-2022 Unclassified (1 source) Low back pain, unspecified; Translations: [Low back pain, unspecified] Onset: 01-24-2022 Results Test Name Value Interpretation Reference Range Facility Alanine aminotransferase [En zymatic activity/volume] in Serum or PlasmaOrdered By: Tasha Mehta on 10-27-2023 ALT [Catalytic activity/Vol] 16 U/L Normal 7-52 [facility] Comment on above: Order Comment: Reaso n for Exam Less than 8 weeks gestation of Reason for Exam Postoperative hypothyroidism Performed By: #### C MP, CBC, T4F, HCGQNT, TSH3 wRFLX #### [facility] [address] [place] [address] [place] Albumin [Mass/volume] in Ser um or Plasma by Bromocresol green (BCG) dye binding methoOrdered By: Tasha Mehta on 10-27-2023 Albumin BCG dye [Mass/Vol] 4.7 g/dL 3.5-5.7 [facility] Alkaline phosphatase [Enzyma tic activity/volume] in Serum or PlasmaOrdered By: Tasha Mehta on 10-27-2023 ALP [Catalytic activity/Vol] 57 U/L Normal 34-104 [facility] Comment on above: Order Comment: Reaso n for Exam Less than 8 weeks gestation of Reason for Exam Postoperative hypothyroidism Performed By: #### C MP, CBC, T4F, HCGQNT, TSH3 wRFLX #### [facility] [address] [place] [address] [place] Aspartate aminotransferase [ Enzymatic activity/volume] in Serum or PlasmaOrdered By: Tasha Mehta on 10-27-2023 AST [Catalytic activity/Vol] 17 U/L Normal 13-39 [facility] Comment on above: Order Comment: Reaso n for Exam Less than 8 weeks gestation of Reason for Exam Postoperative hypothyroidism Performed By: #### C MP, CBC, T4F, HCGQNT, TSH3 wRFLX #### [facility] [address] [place] [address] [place] Automated basophil %Ordered By: Tasha Mehta on 10-27-2023 Basophils/100 WBC (Bld) 0.3 % Normal . [facility] Comment on above: Order Comment: Reaso n for Exam Less than 8 weeks gestation of Performed By: #### C MP, CBC, T4F, HCGQNT, TSH3 wRFLX #### [facility] [address] [place] [address] Automated basophil countOrde red By: Tasha Mehta on 10-27-2023 Basophils (Bld) [#/Vol] 0.0 10*3/uL Normal 0.0-0.2 [facility] Comment on above: Order Comment: Reaso n for Exam Less than 8 weeks gestation of Result Comment: PERF ORMED BY: [place] [address] PATHOLOGIST CANINE ENFORCEMENT OFFICER RONEL ROJO M.D. Performed By: #### C MP, CBC, T4F, HCGQNT, TSH3 wRFLX #### [facility] [address] [place] [address] Automated blood monocyte cou ntOrdered By: Tasha Mehta on 10-27-2023 Monocytes (Bld) [#/Vol] 0.6 10*3/uL Normal 0.0-0.8 [facility] Comment on above: Order Comment: Reaso n for Exam Less than 8 weeks gestation of Performed By: #### C MP, CBC, T4F, HCGQNT, TSH3 wRFLX #### [facility] [address] [place] [address] Automated eosinophil %Ordere d By: Tasha Mehta on 10-27-2023 Eosinophils/100 WBC (Bld) 0.8 % Normal . [facility] Comment on above: Order Comment: Reaso n for Exam Less than 8 weeks gestation of Performed By: #### C MP, CBC, T4F, HCGQNT, TSH3 wRFLX #### [facility] [address] [place] [address] Automated eosinophil countOr dered By: Tasha Mehta on 10-27-2023 Eosinophils (Bld) [#/Vol] 0.1 10*3/uL Normal 0.0-0.45 [facility] Comment on above: Order Comment: Reaso n for Exam Less than 8 weeks gestation of Performed By: #### C MP, CBC, T4F, HCGQNT, TSH3 wRFLX #### [facility] [address] Automated monocyte %Ordered By: Tasha Mehta on 10-27-2023 Monocytes/100 WBC (Bld) 8.7 % Normal . [facility] Comment on above: Order Comment: Reaso n for Exam Less than 8 weeks gestation of Performed By: #### C MP, CBC, T4F, HCGQNT, TSH3 wRFLX #### [facility] [address] Automated neutrophil %Ordere d By: Tasha Mehta on 10-27-2023 Neutrophils/100 WBC (Bld) 53.4 % Normal . [facility] Comment on above: Order Comment: Reaso n for Exam Less than 8 weeks gestation of Performed By: #### C MP, CBC, T4F, HCGQNT, TSH3 wRFLX #### [facility] [address] Bilirubin.total [Mass/volume ] in Serum or PlasmaOrdered By: Tasha Mehta on 10-27-2023 Bilirubin [Mass/Vol] 0.7 mg/dL Normal 0.3-1.0 [facility] Comment on above: Order Comment: Reaso n for Exam Less than 8 weeks gestation of Reason for Exam Postoperative hypothyroidism Performed By: #### C MP, CBC, T4F, HCGQNT, TSH3 wRFLX #### [facility] [address] Calcium [Mass/volume] in Ser um or PlasmaOrdered By: Tasha Mehta on 10-27-2023 Calcium [Mass/Vol] 9.6 mg/dL Normal 8.6-10.3 [facility] Comment on above: Order Comment: Reaso n for Exam Less than 8 weeks gestation of Reason for Exam Postoperative hypothyroidism Performed By: #### C MP, CBC, T4F, HCGQNT, TSH3 wRFLX #### [facility] [address] [place] [address] [place] Carbon dioxide, total [Moles /volume] in Serum or PlasmaOrdered By: Tasha Mehta on 10-27-2023 CO2 [Moles/Vol] 23.0 mmol/L Normal 21.0-31.[address] [facility] Comment on above: Order Comment: Reaso n for Exam Less than 8 weeks gestation of Reason for Exam Postoperative hypothyroidism Performed By: #### C MP, CBC, T4F, HCGQNT, TSH3 wRFLX #### [facility] [address] [place] [address] [facility] Chloride [Moles/volume] in S yany or PlasmaOrdered By: Tasha Mehta on 10-27-2023 Chloride [Moles/Vol] 105 mmol/L Normal 98-107 [facility] Comment on above: Order Comment: Reaso n for Exam Less than 8 weeks gestation of Reason for Exam Postoperative hypothyroidism Performed By: #### C MP, CBC, T4F, HCGQNT, TSH3 wRFLX #### [facility] [address] [place] [address] [facility] Choriogonadotropin.beta subu nit [Units/volume] in Serum or PlasmaOrdered By: Tasha Mehta on 10-27-2023 HCG.beta subunit Qn 6943.00 m[IU]/mL [facility] Comment on above: Approximate Approxim ate hCG Gestational Age Range (mIU/ml) (weeks)0.2-1 5-50 1-2 50-500 2-3 100-5,000 3-4 500-10,000 4-5 1,000-50,000 5-6 10,000-100,000 6-8 15,000-200,000 8-12 10,000-100,000 Complete Blood Count Auto Di ffon 10-27-2023 Mean Corpuscular HGB Conc 34.1 g/dL Normal 32.0-35.0 [facility] Comment on above: Order Comment: Reaso n for Exam Less than 8 weeks gestation of Performed By: #### C MP, CBC, T4F, HCGQNT, TSH3 wRFLX #### [facility] [address] [place] [address] NRBC% 0.1 /100{WBC} Normal 0-0.5 [facility] Comment on above: Order Comment: Reaso n for Exam Less than 8 weeks gestation of Performed By: #### C MP, CBC, T4F, HCGQNT, TSH3 wRFLX #### [address] Comprehensive Metabolic Pane felicia 10-27-2023 Albumin [Mass/Vol] 4.7 g/dL Normal 3.5-5.7 [facility] Comment on above: Order Comment: Reaso n for Exam Less than 8 weeks gestation of Reason for Exam Postoperative hypothyroidism Performed By: #### C MP, CBC, T4F, HCGQNT, TSH3 wRFLX #### [address] GFR/1.73 sq M.predicted MDRD (S/P/Bld) [Vol rate/Area] mL/min/{1.73_m2} Normal [facility] Comment on above: Order Comment: Reaso n for Exam Less than 8 weeks gestation of Reason for Exam Postoperative hypothyroidism Performed By: #### C MP, CBC, T4F, HCGQNT, TSH3 wRFLX #### [address] Creatinine [Mass/volume] in Serum or PlasmaOrdered By: Tasha Mehta on 10-27-2023 Creatinine [Mass/Vol] 0.70 mg/dL Normal 0.60-1.20 [facility] Comment on above: Order Comment: Reaso n for Exam Less than 8 weeks gestation of Reason for Exam Postoperative hypothyroidism Performed By: #### C MP, CBC, T4F, HCGQNT, TSH3 wRFLX #### [address] Erythrocyte distribution wid th [Ratio] by Automated countOrdered By: Tasha Mehta on 10-27-2023 Erythrocyte distribution width (RBC) [Ratio] 12.8 % Normal 11.9-15.3 [facility] Comment on above: Order Comment: Reaso n for Exam Less than 8 weeks gestation of Performed By: #### C MP, CBC, T4F, HCGQNT, TSH3 wRFLX #### [facility] [address] [place] [id number] [facility] Erythrocytes [#/volume] in B lood by Automated countOrdered By: Tasha Mehta on 10-27-2023 RBC (Bld) [#/Vol] 4.64 10*6/uL Normal 3.60-5.00 [facility] Comment on above: Order Comment: Reaso n for Exam Less than 8 weeks gestation of Performed By: #### C MP, CBC, T4F, HCGQNT, TSH3 wRFLX #### [facility] [address] [place] [id number] [facility] Glucose [Mass/volume] in Ser um or PlasmaOrdered By: Tasha Mehta on 10-27-2023 Glucose [Mass/Vol] 82 mg/dL Normal 70-100 [facility] Comment on above: ADA recommended refe rence rangeRandom Glucose Reference Range is dependent on time and content of last meal. Glucose of more than 200 mg/dL in a nonstressed, ambulatory subject supports the diagnosis of Diabetes Mellitus. Order Comment: Reaso n for Exam Less than 8 weeks gestation of Reason for Exam Postoperative hypothyroidism Result Comment: [place] om Glucose Reference Range is dependent on time and content of last meal. Glucose of more than 200 mg/dL in a nonstressed, ambulatory subject supports the diagnosis of Diabetes Mellitus. ADA recommended reference range Performed By: #### C MP, CBC, T4F, HCGQNT, TSH3 wRFLX #### [facility] [address] [place] [id number] [facility] HCG,Quantitativeon 4 HCG,Quantitative 6943.00 m[iU]/mL Normal [facility] Comment on above: Order Comment: Reaso n for Exam Postoperative hypothyroidism Reason for Exam Vitamin D deficiency Result Comment: Appr oximate Approximate hCG Gestational Age Range (mIU/ml) (weeks) 0.2-1 5-50 1-2 50-500 2-3 100-5,000 3-4 500-10,000 4-5 1,000-50,000 5-6 10,000-100,000 6-8 15,000-200,000 8-12 10,000-100,000 PERFORMED BY: [place] [address] PATHOLOGIST CANINE ENFORCEMENT OFFICER RONEL ROJO M.D. Performed By: #### V [id number], CBC, TSH3 wRFLX, CMP #### [facility] [address] [place] [address] Hematocrit [Volume Fraction] of Blood by Automated countOrdered By: Tasha Mehta on 10-27-2023 Hematocrit (Bld) [Volume fraction] 41.1 % Normal 34.0-46.4 [facility] Comment on above: Order Comment: Reaso n for Exam Less than 8 weeks gestation of Performed By: #### C MP, CBC, T4F, HCGQNT, TSH3 wRFLX #### [facility] [address] [place] [address] Hemoglobin [Mass/volume] in BloodOrdered By: Tasha Mehta on 10-27-2023 Hemoglobin (Bld) [Mass/Vol] 14.0 g/dL Normal 11.8-15.4 [facility] Comment on above: Order Comment: Reaso n for Exam Less than 8 weeks gestation of Performed By: #### C MP, CBC, T4F, HCGQNT, TSH3 wRFLX #### [facility] [address] [place] [address] Leukocytes [#/volume] correc eli for nucleated erythrocytes in Blood by Automated counOrdered By: Tasha Mehta on 10-27-2023 WBC corrected for nucl RBC Auto (Bld) [#/Vol] 6.5 10*3/uL 3.8-11.6 [facility] Leukocytes [#/volume] in Blo od by Automated countOrdered By: Tasha Mehta on 10-27-2023 WBC (Bld) [#/Vol] 6.5 10*3/uL Normal 3.8-11.6 [facility] Comment on above: Order Comment: Reaso n for Exam Less than 8 weeks gestation of Performed By: #### C MP, CBC, T4F, HCGQNT, TSH3 wRFLX #### [facility] [address] [place] [address] [place] Lymphocytes [#/volume] in Bl ood by Automated countOrdered By: Tasha Mehta on 10-27-2023 Lymphocytes (Bld) [#/Vol] 2.4 10*3/uL Normal 1.00-4.8 [facility] Comment on above: Order Comment: Reaso n for Exam Less than 8 weeks gestation of Performed By: #### C MP, CBC, T4F, HCGQNT, TSH3 wRFLX #### [facility] [address] [place] [address] [place] Lymphocytes/100 leukocytes i n Blood by Automated countOrdered By: Tasha Mehta on 10-27-2023 Lymphocytes/100 WBC (Bld) 36.8 % Normal . [facility] Comment on above: Order Comment: Reaso n for Exam Less than 8 weeks gestation of Performed By: #### C MP, CBC, T4F, HCGQNT, TSH3 wRFLX #### [facility] [address] MCH [Entitic mass] by Automa eli countOrdered By: Tasha eMhta on 10-27-2023 MCH (RBC) [Entitic mass] 30.2 pg Normal 24.7-34.3 [facility] Comment on above: Order Comment: Reaso n for Exam Less than 8 weeks gestation of Performed By: #### C MP, CBC, T4F, HCGQNT, TSH3 wRFLX #### [facility] [address] [place], [place] [id number] [facility] MCHC Auto (RBC) [Mass/Vol]Or dered By: Tasha Mehta on 10-27-2023 MCHC (RBC) [Mass/Vol] 34.1 g/dL 32.0-35.0 [facility] MCV [Entitic volume] by Auto mated countOrdered By: Tasha Mehta on 10-27-2023 MCV (RBC) [Entitic vol] 88.6 fL Normal 80-100 [facility] Comment on above: Order Comment: Reaso n for Exam Less than 8 weeks gestation of Performed By: #### C MP, CBC, T4F, HCGQNT, TSH3 wRFLX #### [facility] [address] Neutrophils [#/volume] in Bl ood by Automated countOrdered By: Tasha Mehta on 10-27-2023 Neutrophils (Bld) [#/Vol] 3.5 10*3/uL Normal 1.8-7.7 [facility] Comment on above: Order Comment: Reaso n for Exam Less than 8 weeks gestation of Performed By: #### C MP, CBC, T4F, HCGQNT, TSH3 wRFLX #### [facility] [address] No Panel InformationOrdered By: Tasha Mehta on 10-27-2023 Estimated GFR (CKD-EPI) > 60.0 mL/Min [facility] Creatinine Clearance (Chem N/A [facility] Nucleated erythrocytes [Pres ence] in Blood by Automated countOrdered By: Tasha Mehta on 10-27-2023 Nucleated RBC Auto Ql (Bld) 0.1 /100{WBC} 0-0.5 [facility] Platelet mean volume [Entiti c volume] in Blood by Automated countOrdered By: Tasha Mehta on 10-27-2023 Platelet mean volume (Bld) [Entitic vol] 8.0 fL Normal 6.3-10.7 [facility] Comment on above: Order Comment: Reaso n for Exam Less than 8 weeks gestation of Performed By: #### C MP, CBC, T4F, HCGQNT, TSH3 wRFLX #### [facility] [address] [place] [address] [place] Platelets [#/volume] in Bloo d by Automated countOrdered By: Tasha Mehta on 10-27-2023 Platelets (Bld) [#/Vol] 226 10*3/uL Normal 150-450 [facility] Comment on above: Order Comment: Reaso n for Exam Less than 8 weeks gestation of Performed By: #### C MP, CBC, T4F, HCGQNT, TSH3 wRFLX #### [facility] [address] Potassium [Moles/volume] in Serum or PlasmaOrdered By: Tasha Mehta on 10-27-2023 Potassium [Moles/Vol] 4.1 mmol/L Normal 3.5-5.1 [facility] Comment on above: Order Comment: Reaso n for Exam Less than 8 weeks gestation of Reason for Exam Postoperative hypothyroidism Performed By: #### C MP, CBC, T4F, HCGQNT, TSH3 wRFLX #### [facility] [address] Protein [Mass/volume] in Ser um or PlasmaOrdered By: Tasha Mehta on 10-27-2023 Protein [Mass/Vol] 7.4 g/dL Normal 6.4-8.9 [facility] Comment on above: Order Comment: Reaso n for Exam Less than 8 weeks gestation of Reason for Exam Postoperative hypothyroidism Performed By: #### C MP, CBC, T4F, HCGQNT, TSH3 wRFLX #### [facility] [address] Serum globulin measurement b y calculation (mass/volume)Ordered By: Tasha Mehta on 10-27-2023 Globulin (S) [Mass/Vol] 2.7 g/dL Normal [facility] Comment on above: Order Comment: Reaso n for Exam Less than 8 weeks gestation of Reason for Exam Postoperative hypothyroidism Performed By: #### C MP, CBC, T4F, HCGQNT, TSH3 wRFLX #### [facility] [address] [place] [id number] [facility] Serum or plasma albumin/glob ulin mass ratioOrdered By: Tasha Mehta on 10-27-2023 Albumin/Globulin [Mass ratio] 1.7 {ratio} Normal [facility] Comment on above: Order Comment: Reaso n for Exam Less than 8 weeks gestation of Reason for Exam Postoperative hypothyroidism Performed By: #### C MP, CBC, T4F, HCGQNT, TSH3 wRFLX #### [facility] [address] [id number] [facility] Serum or plasma anion gap de terminationOrdered By: Tasha Mehta on 10-27-2023 Anion gap [Moles/Vol] 11.1 mmol/L Normal 6.0-15.0 [facility] Comment on above: Order Comment: Reaso n for Exam Less than 8 weeks gestation of Reason for Exam Postoperative hypothyroidism Performed By: #### C MP, CBC, T4F, HCGQNT, TSH3 wRFLX #### [facility] [address] Sodium [Moles/volume] in Ser um or PlasmaOrdered By: Tasha Mehta on 10-27-2023 Sodium [Moles/Vol] 135 mmol/L Low 136-145 [facility] Comment on above: Order Comment: Reaso n for Exam Less than 8 weeks gestation of Reason for Exam Postoperative hypothyroidism Performed By: #### C MP, CBC, T4F, HCGQNT, TSH3 wRFLX #### [facility] [address] [place] [address] Thyroid Stim Hormone w/Rflxo n 10-27-2023 Thyroid Stim Hormone w/Rflx 0.22 u[iU]/mL Low 0.45-5.33 [facility] Comment on above: Order Comment: Reaso n for Exam Postoperative hypothyroidism Reason for Exam Vitamin D deficiency Performed By: #### V [id number], CBC, TSH3 wRFLX, CMP #### [facility] [address] Thyrotropin [Units/volume] i n Serum or PlasmaOrdered By: Tasha Mehta on 10-27-2023 TSH Qn 0.22 m[IU]/L 0.45-5.33 [facility] Thyroxine (T4) free [Mass/vo lume] in Serum or PlasmaOrdered By: Tasha Mehta on 10-27-2023 Free T4 [Mass/Vol] 1.36 ng/dL High 0.61-1.12 [facility] Comment on above: Order Comment: Reaso n for Exam Postoperative hypothyroidism Reason for Exam Vitamin D deficiency Performed By: #### V [id number], CBC, TSH3 wRFLX, CMP #### [facility] [address] [place] [address] Urea nitrogen [Mass/volume] in Serum or PlasmaOrdered By: Tasha Mehta on 10-27-2023 Urea nitrogen [Mass/Vol] 17 mg/dL Normal 7-25 [facility] Comment on above: Order Comment: Reaso n for Exam Less than 8 weeks gestation of Reason for Exam Postoperative hypothyroidism Performed By: #### C MP, CBC, T4F, HCGQNT, TSH3 wRFLX #### [facility] [address] [place] [address] Choriogonadotropin.beta subu nit [Units/volume] in Serum or PlasmaOrdered By: Tasha Mehta on 09-01-2023 HCG.beta subunit Qn Negative [facility] HCG,Qualitative Rfx to Quant on 09-01-2023 HCG,Qualitative Rfx to Quant Negative Normal [facility] Comment on above: Order Comment: Reaso n for Exam Postoperative hypothyroidism Reason for Exam Irregular menses Result Comment: PERF ORMED BY: [place] [address] PATHOLOGIST CANINE ENFORCEMENT OFFICER RONEL ROJO M.D. Performed By: #### H CG QUAL RFX, TSH3 wRFLX, T4F #### [facility] [address] [place] [address] Thyroid Stim Hormone w/Rflxo n 09-01-2023 Thyroid Stim Hormone w/Rflx 12.13 u[iU]/mL High 0.45-5.33 [facility] Comment on above: Order Comment: Reaso n for Exam Postoperative hypothyroidism Reason for Exam Irregular menses Performed By: #### H CG QUAL RFX, TSH3 wRFLX, T4F #### [facility] [address] [place] [address] Thyrotropin [Units/volume] i n Serum or PlasmaOrdered By: Tasha Mehta on 09-01-2023 TSH Qn 12.13 m[IU]/L 0.45-5.33 [facility] Thyroxine (T4) free [Mass/vo lume] in Serum or PlasmaOrdered By: Tasha Mehta on 09-01-2023 Free T4 [Mass/Vol] 1.02 ng/dL Normal 0.61-1.12 [facility] Comment on above: Order Comment: Reaso n for Exam Postoperative hypothyroidism Reason for Exam Irregular menses Performed By: #### H CG QUAL RFX, TSH3 wRFLX, T4F #### [facility] [address] Alanine aminotransferase [En zymatic activity/volume] in Serum or PlasmaOrdered By: Tasha Mehta on 06-09-2023 ALT [Catalytic activity/Vol] 11 U/L 7-52 [facility] Albumin [Mass/volume] in Ser um or Plasma by Bromocresol green (BCG) dye binding methoOrdered By: Tasha Mehta on 06-09-2023 Albumin BCG dye [Mass/Vol] 5.0 g/dL 3.5-5.7 [facility] Alkaline phosphatase [Enzyma tic activity/volume] in Serum or PlasmaOrdered By: Tasha Mehta on 06-09-2023 ALP [Catalytic activity/Vol] 60 U/L 34-104 [facility] Aspartate aminotransferase [ Enzymatic activity/volume] in Serum or PlasmaOrdered By: Tasha Mehta on 06-09-2023 AST [Catalytic activity/Vol] 14 U/L 13-39 [facility] Basophils Auto (Bld) [#/Vol] Ordered By: Tasha Mehta on 06-09-2023 Basophils (Bld) [#/Vol] 0.0 10*3/uL 0.0-0.2 [facility] Basophils/100 WBC Auto (Bld) Ordered By: Tasha Mehta on 06-09-2023 Basophils/100 WBC (Bld) 0.4 % . [facility] Bilirubin.total [Mass/volume ] in Serum or PlasmaOrdered By: Tasha Mehta on 06-09-2023 Bilirubin [Mass/Vol] 0.5 mg/dL 0.3-1.0 [facility] Calcium [Mass/volume] in Ser um or PlasmaOrdered By: Tasha Mehta on 06-09-2023 Calcium [Mass/Vol] 9.3 mg/dL 8.6-10.3 [facility] Carbon dioxide, total [Moles /volume] in Serum or PlasmaOrdered By: Tasha Mehta on 06-09-2023 CO2 [Moles/Vol] 26.3 mmol/L 21.0-31.[address] [facility] Chloride [Moles/volume] in S yany or PlasmaOrdered By: Tasha Mehta on 06-09-2023 Chloride [Moles/Vol] 106 mmol/L 98-107 [facility] Choriogonadotropin.beta subu nit [Units/volume] in Serum or PlasmaOrdered By: Tasha Mehta on 06-09-2023 HCG.beta subunit Qn 0.69 m[IU]/mL [facility] Comment on above: Approximate Approxim ate hCG Gestational Age Range (mIU/ml) (weeks)0.2-1 5-50 1-2 50-500 2-3 100-5,000 3-4 500-10,000 4-5 1,000-50,000 5-6 10,000-100,000 6-8 15,000-200,000 8-12 10,000-100,000 Creatinine [Mass/volume] in Serum or PlasmaOrdered By: Tasha Mehta on 06-09-2023 Creatinine [Mass/Vol] 0.82 mg/dL 0.60-1.20 [facility] Eosinophils Auto (Bld) [#/Vo l]Ordered By: Tasha Mehta on 06-09-2023 Eosinophils (Bld) [#/Vol] 0.0 10*3/uL 0.0-0.45 [facility] Eosinophils/100 WBC Auto (Bl d)Ordered By: Tasha Mehta on 06-09-2023 Eosinophils/100 WBC (Bld) 1.2 % . [facility] Erythrocyte distribution wid th Auto (RBC) [Ratio]Ordered By: Tasha Mehta on 06-09-2023 Erythrocyte distribution width (RBC) [Ratio] 13.2 % 11.9-15.3 [facility] Globulin Calc (S) [Mass/Vol] Ordered By: Tasha Mehta on 06-09-2023 Globulin (S) [Mass/Vol] 2.5 g/dL [facility] Glucose [Mass/volume] in Ser um or PlasmaOrdered By: Tasha Mehta on 06-09-2023 Glucose [Mass/Vol] 78 mg/dL 70-100 [facility] Comment on above: ADA recommended refe rence rangeRandom Glucose Reference Range is dependent on time and content of last meal. Glucose of more than 200 mg/dL in a nonstressed, ambulatory subject supports the diagnosis of Diabetes Mellitus. Hematocrit Auto (Bld) [Volum e fraction]Ordered By: Tasha Mehta on 06-09-2023 Hematocrit (Bld) [Volume fraction] 38.1 % 34.0-46.4 [facility] Hemoglobin [Mass/volume] in BloodOrdered By: Tasha Mehta on 06-09-2023 Hemoglobin (Bld) [Mass/Vol] 13.3 g/dL 11.8-15.4 [facility] Hepatitis Acute Panelon 05-23 HBsAg Screen Negative Normal Negative [facility] Comment on above: Performed By: #### H EPACUTE #### [facility] , Hepatitis A Antibody IgM Negative Normal Negative [facility] Comment on above: Performed By: #### H EPACUTE #### [facility] , Hepatitis B Core Antibody IgM Negative Normal Negative [facility] Comment on above: Performed By: #### H EPACUTE #### [facility] , Hepatitis C Virus Antibody Non-Reactive Normal Non Reactive [facility] Comment on above: Performed By: #### H EPACUTE #### [facility] , Interpretation Hepatitis C Normal . [facility] Comment on above: Result Comment: Not infected with HCV unless early or acute infection is suspected (which may be delayed in an immunocompromised individual), or other evidence exists to indicate HCV infection. Performed at: - [facility] [address] [id number] Windows Desktop Engineer: Hank Leung PhD, Phone: [phone] PERFORMED BY: [address] [place] [address] PATHOLOGIST CANINE ENFORCEMENT OFFICER RONEL ROJO M.D. Performed By: #### H EPACUTE #### [facility] , HBsAg Screen Negative Normal Negative [facility] Comment on above: Performed By: #### H EPACUTE #### [facility] , Hepatitis A Antibody IgM Negative Normal Negative [facility] Comment on above: Performed By: #### H EPACUTE #### [facility] , Hepatitis B Core Antibody IgM Negative Normal Negative [facility] Comment on above: Performed By: #### H EPACUTE #### [facility] , Hepatitis C Virus Antibody Non-Reactive Normal Non Reactive [facility] Comment on above: Performed By: #### H EPACUTE #### [facility] , Interpretation Hepatitis C Normal . [facility] Comment on above: Result Comment: Not infected with HCV unless early or acute infection is suspected (which may be delayed in an immunocompromised individual), or other evidence exists to indicate HCV infection. Performed at: - [facility] [address] [id number] [employer] Desktop Engineer: Hank Leung PhD, Phone: [phone] PERFORMED BY: [place] [address] PATHOLOGIST CANINE ENFORCEMENT OFFICER RONEL ROJO M.D. Performed By: #### H EPACUTE #### [facility] , Hepatitis B virus surface Ag [Presence] in Serum or Plasma by ImmunoassayOrdered By: Tasha Mehta on 06-09-2023 HBV surface Ag IA Ql Negative Negative [facility] Hepatitis C virus IgG Ab [Pr esence] in Serum or Plasma by ImmunoassayOrdered By: Tasha Mehta on 06-09-2023 HCV IgG IA Ql Non-Reactive Non Reactive [facility] Leukocytes [#/volume] correc eli for nucleated erythrocytes in Blood by Automated counOrdered By: Tasha Mehta on 06-09-2023 WBC corrected for nucl RBC Auto (Bld) [#/Vol] 3.7 10*3/uL 3.8-11.6 [facility] Lymphocytes Auto (Bld) [#/Vo l]Ordered By: Tasha Mehta on 06-09-2023 Lymphocytes (Bld) [#/Vol] 1.7 10*3/uL 1.00-4.8 [facility] Lymphocytes/100 WBC Auto (Bl d)Ordered By: Tasha Mehta on 06-09-2023 Lymphocytes/100 WBC (Bld) 45.9 % . [facility] MCH Auto (RBC) [Entitic mass ]Ordered By: Tasha Mehta on 06-09-2023 MCH (RBC) [Entitic mass] 31.0 pg 24.7-34.3 [facility] MCHC Auto (RBC) [Mass/Vol]Or dered By: Tasha Toddsic on 06-09-2023 MCHC (RBC) [Mass/Vol] 34.9 g/dL 32.0-35.0 [facility] MCV Auto (RBC) [Entitic vol] Ordered By: Tasha Mehta on 06-09-2023 MCV (RBC) [Entitic vol] 88.8 fL 80-100 [facility] Monocytes Auto (Bld) [#/Vol] Ordered By: Tasha Fernandezc on 06-09-2023 Monocytes (Bld) [#/Vol] 0.3 10*3/uL 0.0-0.8 [facility] Monocytes/100 WBC Auto (Bld) Ordered By: Tasha Mehta on 06-09-2023 Monocytes/100 WBC (Bld) 7.4 % . [facility] Neutrophils Auto (Bld) [#/Vo l]Ordered By: Tasha Fernandezc on 06-09-2023 Neutrophils (Bld) [#/Vol] 1.7 10*3/uL 1.8-7.7 [facility] Neutrophils/100 WBC Auto (Bl d)Ordered By: aTsha Toddsic on 06-09-2023 Neutrophils/100 WBC (Bld) 45.1 % . [facility] No Panel InformationOrdered By: Tasha Mehta on 06-09-2023 Estimated GFR (CKD-EPI) > 60.0 mL/Min [facility] Hepatitis A IgM Antibody Negative Negative [facility] Hepatitis B Core IgM Antibody Negative Negative [facility] Hepatitis C Interpretation See comment . [facility] Comment on above: Not infected with HC V unless early or acute infection issuspected (which may be delayed in an immunocompromisedindividual), or other evidence exists to indicate HCVinfection.Performed at: [facility] [id number] Director: Hank Leung PhD, Phone: [phone] Pharmacy Creatinine Clearance (Chem N/A [facility] Nucleated erythrocytes [Pres ence] in Blood by Automated countOrdered By: Tasha Mehta on 06-09-2023 Nucleated RBC Auto Ql (Bld) 0.1 /100{WBC} 0-0.5 [facility] Platelet mean volume Auto (B ld) [Entitic vol]Ordered By: Tasha Mehta on 06-09-2023 Platelet mean volume (Bld) [Entitic vol] 7.4 fL 6.3-10.7 [facility] Platelets Auto (Bld) [#/Vol] Ordered By: Tasha Mehta on 06-09-2023 Platelets (Bld) [#/Vol] 186 10*3/uL 150-450 [facility] Potassium [Moles/volume] in Serum or PlasmaOrdered By: Tasha Mehta on 06-09-2023 Potassium [Moles/Vol] 3.8 mmol/L 3.5-5.1 [facility] Protein [Mass/volume] in Ser um or PlasmaOrdered By: Tasha Mehta on 06-09-2023 Protein [Mass/Vol] 7.5 g/dL 6.4-8.9 [facility] RBC Auto (Bld) [#/Vol]Ordere d By: Tasha Mehta on 06-09-2023 RBC (Bld) [#/Vol] 4.29 10*6/uL 3.60-5.00 [facility] Serum or plasma albumin/glob ulin mass ratioOrdered By: Tasha Mehta on 06-09-2023 Albumin/Globulin [Mass ratio] 2.0 {ratio} [facility] Serum or plasma anion gap de terminationOrdered By: Tasha Mehta on 06-09-2023 Anion gap [Moles/Vol] 9.5 mmol/L 6.0-15.0 [facility] Sodium [Moles/volume] in Ser um or PlasmaOrdered By: Tasha Mehta on 06-09-2023 Sodium [Moles/Vol] 138 mmol/L 136-145 [facility] Thyrotropin [Units/volume] i n Serum or PlasmaOrdered By: Tasha Mehta on 06-09-2023 TSH Qn 4.70 m[IU]/L 0.45-5.33 [facility] Thyroxine (T4) free [Mass/vo lume] in Serum or PlasmaOrdered By: Tasha Mehta on 06-09-2023 Free T4 [Mass/Vol] 1.01 ng/dL 0.61-1.12 [facility] Urea nitrogen [Mass/volume] in Serum or PlasmaOrdered By: Tasha Mehta on 06-09-2023 Urea nitrogen [Mass/Vol] 17 mg/dL 7-25 [facility] WBC Auto (Bld) [#/Vol]Ordere d By: Tasha Mehat on 06-09-2023 WBC (Bld) [#/Vol] 3.7 10*3/uL 3.8-11.6 [facility] Alanine aminotransferase [En zymatic activity/volume] in Serum or PlasmaOrdered By: Tasha Mehta on 01-06-2023 ALT [Catalytic activity/Vol] 9 U/L Normal 7-52 [facility] Comment on above: Order Comment: Reaso n for Exam Postoperative hypothyroidism Reason for Exam Vitamin D deficiency Performed By: #### V [id number], CBC, TSH3 wRFLX, CMP #### [facility] [address] Albumin [Mass/volume] in Ser um or Plasma by Bromocresol green (BCG) dye binding methoOrdered By: Tasha Mehta on 01-06-2023 Albumin BCG dye [Mass/Vol] 5.2 g/dL 3.5-5.7 [facility] Alkaline phosphatase [Enzyma tic activity/volume] in Serum or PlasmaOrdered By: Tasha Mehta on 01-06-2023 ALP [Catalytic activity/Vol] 86 U/L Normal 34-104 [facility] Comment on above: Order Comment: Reaso n for Exam Postoperative hypothyroidism Reason for Exam Vitamin D deficiency Performed By: #### V [id number], CBC, TSH3 wRFLX, CMP #### [facility] [address] Aspartate aminotransferase [ Enzymatic activity/volume] in Serum or PlasmaOrdered By: Tasha Mehta on 01-06-2023 AST [Catalytic activity/Vol] 14 U/L Normal 13-39 [facility] Comment on above: Order Comment: Reaso n for Exam Postoperative hypothyroidism Reason for Exam Vitamin D deficiency Performed By: #### V [id number], CBC, TSH3 wRFLX, CMP #### [facility] [address] Automated basophil %Ordered By: Tasha Mehta on 01-06-2023 Basophils/100 WBC (Bld) 0.2 % Normal . [facility] Comment on above: Order Comment: Reaso n for Exam Postoperative hypothyroidism Performed By: #### V [id number], CBC, TSH3 wRFLX, CMP #### [facility] [address] [place] [address] Automated basophil countOrde red By: Tasha Mehta on 01-06-2023 Basophils (Bld) [#/Vol] 0.0 10*3/uL Normal 0.0-0.2 [facility] Comment on above: Order Comment: Reaso n for Exam Postoperative hypothyroidism Result Comment: PERF ORMED BY: [place] [address] PATHOLOGIST CANINE ENFORCEMENT OFFICER RONEL ROJO M.D. Performed By: #### V [id number], CBC, TSH3 wRFLX, CMP #### [facility] [address] Automated blood monocyte cou ntOrdered By: Tasha Mehta on 01-06-2023 Monocytes (Bld) [#/Vol] 0.3 10*3/uL Normal 0.0-0.8 [facility] Comment on above: Order Comment: Reaso n for Exam Postoperative hypothyroidism Performed By: #### V [id number], CBC, TSH3 wRFLX, CMP #### [facility] [address] Automated eosinophil %Ordere d By: Tasha Fernandezc on 01-06-2023 Eosinophils/100 WBC (Bld) 1.2 % Normal . [facility] Comment on above: Order Comment: Reaso n for Exam Postoperative hypothyroidism Performed By: #### V [id number], CBC, TSH3 wRFLX, CMP #### [facility] [address] [place] [address] Automated eosinophil countOr dered By: Tasha Mehta on 01-06-2023 Eosinophils (Bld) [#/Vol] 0.1 10*3/uL Normal 0.0-0.45 [facility] Comment on above: Order Comment: Reaso n for Exam Postoperative hypothyroidism Performed By: #### V [id number], CBC, TSH3 wRFLX, CMP #### [facility] [address] [place] [address] Automated monocyte %Ordered By: Tasha Mehta on 01-06-2023 Monocytes/100 WBC (Bld) 6.1 % Normal . [facility] Comment on above: Order Comment: Reaso n for Exam Postoperative hypothyroidism Performed By: #### V [id number], CBC, TSH3 wRFLX, CMP #### [facility] [address] [place] [address] [place] Automated neutrophil %Ordere d By: Tasha Mehta on 01-06-2023 Neutrophils/100 WBC (Bld) 50.8 % Normal . [facility] Comment on above: Order Comment: Reaso n for Exam Postoperative hypothyroidism Performed By: #### V [id number], CBC, TSH3 wRFLX, CMP #### [facility] [address] Bilirubin.total [Mass/volume ] in Serum or PlasmaOrdered By: Tasha Mehta on 01-06-2023 Bilirubin [Mass/Vol] 0.5 mg/dL Normal 0.3-1.0 [facility] Comment on above: Order Comment: Reaso n for Exam Postoperative hypothyroidism Reason for Exam Vitamin D deficiency Performed By: #### V [id number], CBC, TSH3 wRFLX, CMP #### [facility] [address] [place] [id number] [place] Calcium [Mass/volume] in Ser um or PlasmaOrdered By: Tasha Mehta on 01-06-2023 Calcium [Mass/Vol] 9.7 mg/dL Normal 8.6-10.3 [facility] Comment on above: Order Comment: Reaso n for Exam Postoperative hypothyroidism Reason for Exam Vitamin D deficiency Performed By: #### V [id number], CBC, TSH3 wRFLX, CMP #### [facility] [address] [place] [id number] [facility] Carbon dioxide, total [Moles /volume] in Serum or PlasmaOrdered By: Tasha Mehta on 01-06-2023 CO2 [Moles/Vol] 27.7 mmol/L Normal 21.0-31.[address] [facility] Comment on above: Order Comment: Reaso n for Exam Postoperative hypothyroidism Reason for Exam Vitamin D deficiency Performed By: #### V [id number], CBC, TSH3 wRFLX, CMP #### [facility] [address] [place] [id number] [place] Chloride [Moles/volume] in S yany or PlasmaOrdered By: Tasha Mehta on 01-06-2023 Chloride [Moles/Vol] 106 mmol/L Normal 98-107 [facility] Comment on above: Order Comment: Reaso n for Exam Postoperative hypothyroidism Reason for Exam Vitamin D deficiency Performed By: #### V [id number], CBC, TSH3 wRFLX, CMP #### [facility] [address] [place] [id number] [place] Complete Blood Count Auto Di ffon 01-06-2023 Mean Corpuscular HGB Conc 34.9 g/dL Normal 32.0-35.0 [facility] Comment on above: Order Comment: Reaso n for Exam Postoperative hypothyroidism Performed By: #### V [id number], CBC, TSH3 wRFLX, CMP #### [facility] [address] NRBC% 0.2 /100{WBC} Normal 0-0.5 [facility] Comment on above: Order Comment: Reaso n for Exam Postoperative hypothyroidism Performed By: #### V [id number], CBC, TSH3 wRFLX, CMP #### [facility] [address] Comprehensive Metabolic Pane felicia 01-06-2023 Albumin [Mass/Vol] 5.2 g/dL Normal 3.5-5.7 [facility] Comment on above: Order Comment: Reaso n for Exam Postoperative hypothyroidism Reason for Exam Vitamin D deficiency Performed By: #### V [id number], CBC, TSH3 wRFLX, CMP #### [address] GFR/1.73 sq M.predicted MDRD (S/P/Bld) [Vol rate/Area] mL/min/{1.73_m2} Normal [facility] Comment on above: Order Comment: Reaso n for Exam Postoperative hypothyroidism Reason for Exam Vitamin D deficiency Performed By: #### V [id number], CBC, TSH3 wRFLX, CMP #### [facility] [address] [place] [address] Creatinine [Mass/volume] in Serum or PlasmaOrdered By: Tasha Mehta on 01-06-2023 Creatinine [Mass/Vol] 0.77 mg/dL Normal 0.60-1.20 [facility] Comment on above: Order Comment: Reaso n for Exam Postoperative hypothyroidism Reason for Exam Vitamin D deficiency Performed By: #### V [id number], CBC, TSH3 wRFLX, CMP #### [facility] [address] Erythrocyte distribution wid th [Ratio] by Automated countOrdered By: Tasha Mehta on 01-06-2023 Erythrocyte distribution width (RBC) [Ratio] 14.9 % Normal 11.9-15.3 [facility] Comment on above: Order Comment: Reaso n for Exam Postoperative hypothyroidism Performed By: #### V [id number], CBC, TSH3 wRFLX, CMP #### [facility] [address] [place] [address] [place] Erythrocytes [#/volume] in B lood by Automated countOrdered By: Tasha Mehta on 01-06-2023 RBC (Bld) [#/Vol] 4.78 10*6/uL Normal 3.60-5.00 [facility] Comment on above: Order Comment: Reaso n for Exam Postoperative hypothyroidism Performed By: #### V [id number], CBC, TSH3 wRFLX, CMP #### [facility] [address] [place] [id number] [place] Glucose [Mass/volume] in Ser um or PlasmaOrdered By: Tasha Mehta on 01-06-2023 Glucose [Mass/Vol] 94 mg/dL Normal 70-100 [facility] [facility] Comment on above: ADA recommended refe rence rangeRandom Glucose Reference Range is dependent on time and content of last meal. Glucose of more than 200 mg/dL in a nonstressed, ambulatory subject supports the diagnosis of Diabetes Mellitus. Order Comment: Reaso n for Exam Postoperative hypothyroidism Reason for Exam Vitamin D deficiency Result Comment: [place] om Glucose Reference Range is dependent on time and content of last meal. Glucose of more than 200 mg/dL in a nonstressed, ambulatory subject supports the diagnosis of Diabetes Mellitus. ADA recommended reference range Performed By: #### V [id number], CBC, TSH3 wRFLX, CMP #### [facility] [address] [id number] [place] Hematocrit [Volume Fraction] of Blood by Automated countOrdered By: Tasha Mehta on 01-06-2023 Hematocrit (Bld) [Volume fraction] 41.1 % Normal 34.0-46.4 [facility] Comment on above: Order Comment: Reaso n for Exam Postoperative hypothyroidism Performed By: #### V [id number], CBC, TSH3 wRFLX, CMP #### [facility] [address] [place] [address] [place] Hemoglobin [Mass/volume] in BloodOrdered By: Tasha Mehta on 01-06-2023 Hemoglobin (Bld) [Mass/Vol] 14.3 g/dL Normal 11.8-15.4 [facility] Comment on above: Order Comment: Reaso n for Exam Postoperative hypothyroidism Performed By: #### V [id number], CBC, TSH3 wRFLX, CMP #### [facility] [address] [id number] [facility] Leukocytes [#/volume] correc eli for nucleated erythrocytes in Blood by Automated counOrdered By: Tasha Mehta on 01-06-2023 WBC corrected for nucl RBC Auto (Bld) [#/Vol] 4.1 10*3/uL 3.8-11.6 [facility] Leukocytes [#/volume] in Blo od by Automated countOrdered By: Tasha Mehta on 01-06-2023 WBC (Bld) [#/Vol] 4.1 10*3/uL Normal 3.8-11.6 [facility] Comment on above: Order Comment: Reaso n for Exam Postoperative hypothyroidism Performed By: #### V [id number], CBC, TSH3 wRFLX, CMP #### [facility] [address] [place] [address] [place] Lymphocytes [#/volume] in Bl ood by Automated countOrdered By: Tasha Mehta on 01-06-2023 Lymphocytes (Bld) [#/Vol] 1.7 10*3/uL Normal 1.00-4.8 [facility] Comment on above: Order Comment: Reaso n for Exam Postoperative hypothyroidism Performed By: #### V [id number], CBC, TSH3 wRFLX, CMP #### [facility] [address] [id number] [place] Lymphocytes/100 leukocytes i n Blood by Automated countOrdered By: Tasha Mehta on 01-06-2023 Lymphocytes/100 WBC (Bld) 41.7 % Normal . [facility] Comment on above: Order Comment: Reaso n for Exam Postoperative hypothyroidism Performed By: #### V [id number], CBC, TSH3 wRFLX, CMP #### [facility] [address] [id number] [place] MCH [Entitic mass] by Automa eli countOrdered By: Tasha Mehta on 01-06-2023 MCH (RBC) [Entitic mass] 30.0 pg Normal 24.7-34.3 [facility] Comment on above: Order Comment: Reaso n for Exam Postoperative hypothyroidism Performed By: #### V [id number], CBC, TSH3 wRFLX, CMP #### [facility] [address] [place] [address] MCHC Auto (RBC) [Mass/Vol]Or dered By: Tasha Mehta on 01-06-2023 MCHC (RBC) [Mass/Vol] 34.9 g/dL 32.0-35.0 [facility] MCV [Entitic volume] by Auto mated countOrdered By: Tasha Mehta on 01-06-2023 MCV (RBC) [Entitic vol] 86.0 fL Normal 80-100 F [facility] Comment on above: Order Comment: Reaso n for Exam Postoperative hypothyroidism Performed By: #### V [id number], CBC, TSH3 wRFLX, CMP #### [facility] [address] [place] [address] Neutrophils [#/volume] in Bl ood by Automated countOrdered By: Tasha Mehta on 01-06-2023 Neutrophils (Bld) [#/Vol] 2.1 10*3/uL Normal 1.8-7.7 [facility] Comment on above: Order Comment: Reaso n for Exam Postoperative hypothyroidism Performed By: #### V [id number], CBC, TSH3 wRFLX, CMP #### [facility] [address] [place] [address] No Panel InformationOrdered By: Tasha Mehta on 01-06-2023 Estimated GFR (CKD-EPI) > 60.0 mL/Min [facility] Creatinine Clearance (Chem N/A [facility] Nucleated erythrocytes [Pres ence] in Blood by Automated countOrdered By: Tasha Mehta on 01-06-2023 Nucleated RBC Auto Ql (Bld) 0.2 /100{WBC} 0-0.5 [facility] Platelet mean volume [Entiti c volume] in Blood by Automated countOrdered By: Tasha Mehta on 01-06-2023 Platelet mean volume (Bld) [Entitic vol] 7.5 fL Normal 6.3-10.7 [facility] Comment on above: Order Comment: Reaso n for Exam Postoperative hypothyroidism Performed By: #### V [id number], CBC, TSH3 wRFLX, CMP #### [facility] [address] Platelets [#/volume] in Bloo d by Automated countOrdered By: Tasha Mehta on 01-06-2023 Platelets (Bld) [#/Vol] 202 10*3/uL Normal 150-450 [facility] Comment on above: Order Comment: Reaso n for Exam Postoperative hypothyroidism Performed By: #### V [id number], CBC, TSH3 wRFLX, CMP #### [facility] [address] Potassium [Moles/volume] in Serum or PlasmaOrdered By: Tasha Mehta on 01-06-2023 Potassium [Moles/Vol] 3.8 mmol/L Normal 3.5-5.1 [facility] Comment on above: Order Comment: Reaso n for Exam Postoperative hypothyroidism Reason for Exam Vitamin D deficiency Performed By: #### V [id number], CBC, TSH3 wRFLX, CMP #### [facility] [address] Protein [Mass/volume] in Ser um or PlasmaOrdered By: Tasha Mehta on 01-06-2023 Protein [Mass/Vol] 8.1 g/dL Normal 6.4-8.9 [facility] Comment on above: Order Comment: Reaso n for Exam Postoperative hypothyroidism Reason for Exam Vitamin D deficiency Performed By: #### V [id number], CBC, TSH3 wRFLX, CMP #### [facility] [address] [id number] [facility] Serum globulin measurement b y calculation (mass/volume)Ordered By: Tasha Mehta on 01-06-2023 Globulin (S) [Mass/Vol] 2.9 g/dL Normal [facility] Comment on above: Order Comment: Reaso n for Exam Postoperative hypothyroidism Reason for Exam Vitamin D deficiency Performed By: #### V [id number], CBC, TSH3 wRFLX, CMP #### [facility] [address] Serum or plasma albumin/glob ulin mass ratioOrdered By: Tasha Mehta on 01-06-2023 Albumin/Globulin [Mass ratio] 1.8 {ratio} Normal [facility] Comment on above: Order Comment: Reaso n for Exam Postoperative hypothyroidism Reason for Exam Vitamin D deficiency Performed By: #### V [id number], CBC, TSH3 wRFLX, CMP #### [facility] [address] Serum or plasma anion gap de terminationOrdered By: Tasha Mehta on 01-06-2023 Anion gap [Moles/Vol] 9.1 mmol/L Normal 6.0-15.0 [facility] Comment on above: Order Comment: Reaso n for Exam Postoperative hypothyroidism Reason for Exam Vitamin D deficiency Performed By: #### V [id number], CBC, TSH3 wRFLX, CMP #### [facility] [address] [place] [address] Sodium [Moles/volume] in Ser um or PlasmaOrdered By: Tasha Mehta on 01-06-2023 Sodium [Moles/Vol] 139 mmol/L Normal 136-145 [facility] Comment on above: Order Comment: Reaso n for Exam Postoperative hypothyroidism Reason for Exam Vitamin D deficiency Performed By: #### V [id number], CBC, TSH3 wRFLX, CMP #### [facility] [address] [place] [address] Thyroid Stim Hormone w/Rflxo n 01-06-2023 Thyroid Stim Hormone w/Rflx 1.34 u[iU]/mL Normal 0.45-5.33 [facility] Comment on above: Order Comment: Reaso n for Exam Postoperative hypothyroidism Reason for Exam Vitamin D deficiency Performed By: #### V [id number], CBC, TSH3 wRFLX, CMP #### [facility] [address] Thyrotropin [Units/volume] i n Serum or PlasmaOrdered By: Tasha Mehta on 01-06-2023 TSH Qn 1.34 m[IU]/L 0.45-5.33 [facility] Urea nitrogen [Mass/volume] in Serum or PlasmaOrdered By: Tasha Mehta on 01-06-2023 Urea nitrogen [Mass/Vol] 10 mg/dL Normal 7-25 [facility] Comment on above: Order Comment: Reaso n for Exam Postoperative hypothyroidism Reason for Exam Vitamin D deficiency Performed By: #### V [id number], CBC, TSH3 wRFLX, CMP #### [facility] [address] [id number] [facility] Vitamin D 25 Hydroxy Totalon 01-06-2023 Vitamin D 25 Hydroxy Total 34.5 ng/mL Normal 30-100 [facility] Comment on above: Order Comment: Reaso n for Exam Postoperative hypothyroidism Reason for Exam Vitamin D deficiency Result Comment: [place] MIN D STATUS 25(OH)VITAMIN D RANGE (ng/mL) Deficient <20 Insufficient 20 to <30 Sufficient 30 to 100 Reference: Melony Burton, Adiel BHATT, et al. Evaluation,treatment, and prevention of vitamin D deficiency; an Endocrine Society clinical practice guideline. JCEM. 2010; 96(7):1911-30. PERFORMED BY: [place] [address] PATHOLOGIST CANINE ENFORCEMENT OFFICER RONEL ROJO M.D. Performed By: #### V [id number], CBC, TSH3 wRFLX, CMP #### [facility] [address] [id number] [facility] Vitamin D+Metabolites [Mass/ volume] in Serum or PlasmaOrdered By: Tasha Mehta on 01-06-2023 Vitamin D+Metabolites [Mass/Vol] 34.5 ng/mL 30-100 [facility] Comment on above: VITAMIN D STATUS 25( [place])VITAMIN D RANGE (ng/mL) Deficient <20 Insufficient 20 to <30Sufficient 30 to 100Reference: Melony Burton, Adiel BHATT et al. Evaluation,treatment, and prevention of vitamin D deficiency; an Endocrine Society clinical practice guideline. JCEM. 2010; 96(7):1911-30. Retirement Documentson 09-27-2022 Retirement Documents [id number]# 1.00CD:127 Normal [facility] SPINAL INJECTIONon 2 Arlene Titus MD - 01/29/2022 1:30 PM EDT PROCEDURE: Bilateral L4-5, and L5-S1 Facet Joint Block under Fluoroscopic Guidance ATTENDING PHYSICIAN: Arlene Titus MD PREOPERATIVE DIAGNOSIS(ES): Lumbar Spondylosis POSTOPERATIVE DIAGNOSIS: SAME ANESTHESIA: Local COMPLICATIONS: The patient tolerated the procedure well with no complications. INDICATIONS FOR PROCEDURE: This 26 y.o. year old patient presents for bilateral low back pain. Pain is worsened with standing, sitting, and walking. The patient presents for bilateral lumbar facet block. CONSENT: The patient was given a verbal description of the intended procedure including the risks and benefits of the procedure. The patient was than able to provide written informed consent for the above procedure. UNIVERSAL PROTOCOL/ TIMEOUT: Preprocedure verification is complete- patient verified and consents confirmed. PROCEDURE DETAILS: The operator technician's and physician's hands were washed immediately prior to the procedure using a chlorhexidine soap or sanitized using ethyl alcohol hand microbiology lab analyst. Hat, mask, and sterile gloves were used for the entirety of the procedure. All other personnel in the room wore hat and masks, as well as appropriate personal protective equipment. Risks and benefits of the procedure were discussed in detail, and an informed consent was completed and signed by the patient and physician. A timeout was performed prior to the start of the procedure. The Physicians performing the procedure performed handwashing with alcohol based hand wash and used sterile gloves for the procedure. All personnel in the room wore masks. The patient was placed prone on a fluoroscopy table. The lumbar spine was prepped and draped in the usual sterile fashion using Hibiclens prep. A C-arm Fluoroscope was brought into the field and used to obtain an AP radiograph of the lumbar spine. The junction of the sacral ala and sacral superior articular process was identified. A 25 G 3.5 inch angulated quincke needle was advanced under intermittent fluoroscopic guidance to make osseous contact with the junction of the sacral ala and the superior articular process at L5-S1. The patient did not have any pain or paresthesia at this time. Then the C-arm was advanced superiorly and obliqued 1 degrees to the left at the L5 level to demonstrate the junction of the transverse process and the superior articular process. A 25 G 3.5 inch angulated quincke needle was advanced under intermittent fluoroscopic guidance to make osseous contact. The patient did not experience any pain or paresthesia at this time. The procedure was then repeated at the L4 levels. Then after all needles were in place a lateral radiograph was taken to check for proper placement of the needles. Any necessary adjustments to the needles was made under intermittent fluoroscopy. Then after negative aspiration for blood CSF or any other body fluid, 0.5 ml of 2% lidocaine was injected at each level. With needle placement at the junction of the transverse process and superior articular process at L4, L5, and the ipsilateral sacral ala the L4-5 facet, and the L5-S1 facet have been anesthetized. The procedure was then repeated in the exact same fashion on the contralateral side. The needles were then removed, the patient's back was cleansed, and band aid dressings were applied. Post Procedure Evaluation: Pre-procedure pain level: up to 9/10 Post-procedure pain level: 4/10 Amount of pain relief: ~60% Pain with provocative maneuvers: Improved, not quite 80% will provide pain diary to review at next office visit CONDITION: The patient was discharged home in good condition. PLAN :Follow-up at the next scheduled and earlier as needed. Note angulation above [facility] Radiology Study observation (narrative) [facility] RAPID TOX SCREEN,URINEon AMPHETAMINE Negative Normal NEGATIVE [facility] Comment on above: Result Comment: <500 ng/ml CUTOFF BARBITURATES Negative Normal NEGATIVE [facility] Comment on above: Result Comment: <200 ng/ml CUTOFF BENZODIAZEPINES Negative Normal NEGATIVE [facility] Comment on above: Result Comment: <150 ng/ml CUTOFF BUPRENORPHINE Negative Normal NEGATIVE [facility] Comment on above: Result Comment: <10 ng/ml CUTOFF CANNABINOIDS Negative Normal NEGATIVE [facility] Comment on above: Result Comment: <50 ng/ml CUTOFF COCAINE Negative Normal NEGATIVE [facility] Comment on above: Result Comment: <150 ng/ml CUTOFF METHADONE Negative Normal NEGATIVE [facility] Comment on above: Result Comment: <200 ng/ml CUTOFF METHAMPHETAMINE Negative Normal NEGATIVE [facility] Comment on above: Result Comment: <500 ng/ml CUTOFF OPIATES Negative Normal NEGATIVE [facility] Comment on above: Result Comment: <100 ng/ml CUTOFF OXYCODONE Positive Abnormal NEGATIVE [facility] Comment on above: Result Comment: <100 ng/ml CUTOFF *Unconfirmed Screening Result* Unconfirmed screening results are to be used only for medical treatment purposes. PHENCYCLIDINE Negative Normal NEGATIVE [facility] Comment on above: Result Comment: <25 ng/ml CUTOFF PROPOXYPHENE Negative Normal NEGATIVE [facility] Comment on above: Result Comment: <300 ng/ml CUTOFF TRICYCLIC ANTIDEPRESSANTS Negative Normal NEGATIVE [facility] Comment on above: Result Comment: <300 ng/ml CUTOFF URINE HCG QUALon 01-24-2022 Beta HCG ( test) Ql (U) Negative Normal [facility] XR SACRUM/COCCYX 2+ VWon XR SACRUM/COCCYX 2+ VW EXAM: XR SPINE LUMBOSACRAL AP AND LATERAL, XR SACRUM/COCCYX 2+ VW DATE: 01/24/2022 2:03 PM EDT INDICATION: fall pain COMPARISON: Lumbar spine radiographs 520 22,022 TECHNIQUE: AP and lateral views lumbar spine, AP and lateral views sacrum and coccyx FINDINGS: There are 5 nonrib-bearing lumbar-type vertebral bodies. Vertebral body heights and alignment are maintained. Disc spaces are preserved. No significant degenerative changes. The sacral alar intact. No acute displaced fracture and sacrum or coccyx is identified. Sacral iliac joints are intact. Soft tissues are unremarkable. IMPRESSION: 1. No acute osseous abnormality. Normal [facility] XR SPINE LUMBOSACRAL AP AND LATERALon 01-24-2022 XR SPINE LUMBOSACRAL AP AND LATERAL EXAM: XR SPINE LUMBOSACRAL AP AND LATERAL, XR SACRUM/COCCYX 2+ VW DATE: 01/24/2022 2:03 PM EDT INDICATION: fall pain COMPARISON: Lumbar spine radiographs 520 22,022 TECHNIQUE: AP and lateral views lumbar spine, AP and lateral views sacrum and coccyx FINDINGS: There are 5 nonrib-bearing lumbar-type vertebral bodies. Vertebral body heights and alignment are maintained. Disc spaces are preserved. No significant degenerative changes. The sacral alar intact. No acute displaced fracture and sacrum or coccyx is identified. Sacral iliac joints are intact. Soft tissues are unremarkable. IMPRESSION: 1. No acute osseous abnormality. Normal [facility] SMALL JOINT/BURSA INJECTION AND/OR ASPIRATION: R L3-L4 interspinous bursaon 12-28-2021 Radiology Study observation (narrative) [facility] SMALL JOINT/BURSA INJECTION AND/OR ASPIRATION: R L5-S1 interspinous bursaon 12-28-2021 Radiology Study observation (narrative) [facility] No Panel Informationon 12-09 [facility] SMALL JOINT/BURSA INJECTION AND/OR ASPIRATION: R L3-L4 interspinous bursaon 12-09-2021 Marylin Brink MD 12/28/2021 4:53 PM SMALL JOINT/BURSA INJECTION AND/OR ASPIRATION: R L3-L4 interspinous bursa Date/Time: 12/09/2021 2:30 PM Supporting Documentation Indications: pain Procedure Details: Location: back - R L3-L4 interspinous bursa Local Anesthetic: ethyl chloride (cold spray) Needle size: 25 G Medication Verification: I have personally verified and performed the final check of the medication(s) used in this procedure prior to administration. The following items were included during the verification process for medication(s) administered: drug name, strength, volume, expiration, physical integrity and appearance of the medication(s). Medications administered: 2 mL lidocaine 10 mg/mL; 12 mg betamethasone acetate 6 (3-3) MG/ML Patient tolerance: patient tolerated the procedure well with no immediate complications Pre-Procedure Details The attending physician was present for the entire procedure. Consent: Consent was obtained prior to the procedure after discussion of the risks, benefits and alternatives, and expected outcomes were discussed with the patient. The possibilities of reaction to medication, bleeding, infection, the need for additional procedures, failure to diagnosis a condition, and creating a complication requiring operation were discussed with the patient. The patient concurred with the proposed plan, giving consent. The patient was prepped with alcohol. [facility] SMALL JOINT/BURSA INJECTION AND/OR ASPIRATION: R L5-S1 interspinous bursaon 12-09-2021 Marylin Brink MD 12/28/2021 4:53 PM SMALL JOINT/BURSA INJECTION AND/OR ASPIRATION: R L5-S1 interspinous bursa Date/Time: 12/09/2021 2:30 PM Procedure Details: Location: back - R L5-S1 interspinous bursa (lumbar paraspinal- R SI) Local Anesthetic: ethyl chloride (cold spray) Needle size: 25 G Medication Verification: I have personally verified and performed the final check of the medication(s) used in this procedure prior to administration. The following items were included during the verification process for medication(s) administered: drug name, strength, volume, expiration, physical integrity and appearance of the medication(s). Medications administered: 12 mg betamethasone acetate 6 (3-3) MG/ML; 2 mL lidocaine 10 mg/mL Patient tolerance: patient tolerated the procedure well with no immediate complications Pre-Procedure Details The attending physician was present for the entire procedure. Consent: Consent was obtained prior to the procedure after discussion of the risks, benefits and alternatives, and expected outcomes were discussed with the patient. The possibilities of reaction to medication, bleeding, infection, the need for additional procedures, failure to diagnosis a condition, and creating a complication requiring operation were discussed with the patient. The patient concurred with the proposed plan, giving consent. The patient was prepped with alcohol. [employer] [facility] MR Lumbar spine WO contrasto n 12-06-2021 IMPRESSION: 1. Interval resolution of edema involving the S2 vertebral body suggesting healed fracture. 2. Mild degenerative disc disease of the lower lumbar spine, not significant change.. RADIOLOGY EXAM: MRI SPINE LUMBAR WITHOUT CONTRAST REASON FOR EXAM: Neck pain. TECHNIQUE: Multiplanar, multisequence imaging of the lumbar spine was performed without contrast COMPARISON: 10/14/2021. FINDINGS: 5 nonrib-bearing lumbar vertebrae. Normal lumbar lordosis without significant listhesis. Vertebral body heights are maintained. No acute or aggressive osseous abnormality identified. Visualized bony pelvis is congruent. Interval resolution of edema involving the S3 vertebral body suggesting healing fracture. Limited evaluation the abdominopelvic viscera is without acute abnormality. Cholelithiasis is noted without evidence acute cholecystitis. L1-L2: No focal disc herniation identified. No spinal canal or neural foraminal stenosis. L2-L3: No focal disc herniation identified. No spinal canal or neural foraminal stenosis. L3-L4: No focal disc herniation identified. No spinal canal or neural foraminal stenosis. L4-5: Minimal broad-based disc bulge with flattening of ventral thecal sac. No severe spinal canal stenosis. Mild bilateral neural foraminal stenosis secondary to facet arthropathy. L5-S1: Minimal broad-based disc bulge without significant spinal canal stenosis. Mild bilateral neural foraminal stenosis secondary to marginal osteophytes and facet arthropathy. RADIOLOGY Jose Luis Valentine M D - 12/06/2021 EXAM: MRI SPINE LUMBAR WITHOUT CONTRAST REASON FOR EXAM: Neck pain. TECHNIQUE: Multiplanar, multisequence imaging of the lumbar spine was performed without contrast COMPARISON: 10/14/2021. FINDINGS: 5 nonrib-bearing lumbar vertebrae. Normal lumbar lordosis without significant listhesis. Vertebral body heights are maintained. No acute or aggressive osseous abnormality identified. Visualized bony pelvis is congruent. Interval resolution of edema involving the S3 vertebral body suggesting healing fracture. Limited evaluation the abdominopelvic viscera is without acute abnormality. Cholelithiasis is noted without evidence acute cholecystitis. L1-L2: No focal disc herniation identified. No spinal canal or neural foraminal stenosis. L2-L3: No focal disc herniation identified. No spinal canal or neural foraminal stenosis. L3-L4: No focal disc herniation identified. No spinal canal or neural foraminal stenosis. L4-5: Minimal broad-based disc bulge with flattening of ventral thecal sac. No severe spinal canal stenosis. Mild bilateral neural foraminal stenosis secondary to facet arthropathy. L5-S1: Minimal broad-based disc bulge without significant spinal canal stenosis. Mild bilateral neural foraminal stenosis secondary to marginal osteophytes and facet arthropathy. IMPRESSION IMPRESSION: 1. Interval resolution of edema involving the S2 vertebral body suggesting healed fracture. 2. Mild degenerative disc disease of the lower lumbar spine, not significant change.. [employer] MR Lumbar spine WO contrastO rdered By: Jose Luis Valentine on 12-06-2021 [employer] Work Phone: MRI SPINE LUMBAR WITHOUT CON TRASTon 12-06-2021 MRI SPINE LUMBAR WITHOUT CONTRAST EXAM: MRI SPINE LUMBAR WITHOUT CONTRAST REASON FOR EXAM: Neck pain. TECHNIQUE: Multiplanar, multisequence imaging of the lumbar spine was performed without contrast COMPARISON: 10/14/2021. FINDINGS: 5 nonrib-bearing lumbar vertebrae. Normal lumbar lordosis without significant listhesis. Vertebral body heights are maintained. No acute or aggressive osseous abnormality identified. Visualized bony pelvis is congruent. Interval resolution of edema involving the S3 vertebral body suggesting healing fracture. Limited evaluation the abdominopelvic viscera is without acute abnormality. Cholelithiasis is noted without evidence acute cholecystitis. L1-L2: No focal disc herniation identified. No spinal canal or neural foraminal stenosis. L2-L3: No focal disc herniation identified. No spinal canal or neural foraminal stenosis. L3-L4: No focal disc herniation identified. No spinal canal or neural foraminal stenosis. L4-5: Minimal broad-based disc bulge with flattening of ventral thecal sac. No severe spinal canal stenosis. Mild bilateral neural foraminal stenosis secondary to facet arthropathy. L5-S1: Minimal broad-based disc bulge without significant spinal canal stenosis. Mild bilateral neural foraminal stenosis secondary to marginal osteophytes and facet arthropathy. IMPRESSION: 1. Interval resolution of edema involving the S2 vertebral body suggesting healed fracture. 2. Mild degenerative disc disease of the lower lumbar spine, not significant change.. Normal [facility] MR Lumbar spine WO contrasto n 12-04-2021 Radiology Study observation (narrative) [facility] MR Sacrum WO contraston 07- IMPRESSION: Resolution of the right sacral bone marrow edema. RADIOLOGY EXAM: MRI SACRUM WITHOUT CONTRAST HISTORY: Sacral pain. Bone marrow edema of the right S3 sacral segment on MRI dated 10/20/2021 COMPARISON: Sacral MRI 10/20/[address] 10/28/2021 and pelvic and sacral x-rays 11/25/2021 TECHNIQUE: Multiplanar, multi sequential MRI sequences were performed FINDINGS: There is resolution of the previously visualized bone marrow edema of the right aspect of the S3 sacral segment. No fracture, dislocation, subluxation or osseous lesion. The sacroiliac joints are normal. The sacral neural segments are unremarkable. The lumbar spine is better evaluated on the lumbar spine MRI performed on the same day. The visualized subcutaneous soft tissues exhibit no edema, hematoma, mass or cyst. No muscle edema, hematoma, atrophy or fatty infiltration. RADIOLOGY Bruno Guzman, DO - 12/04/2021 EXAM: MRI SACRUM WITHOUT CONTRAST HISTORY: Sacral pain. Bone marrow edema of the right S3 sacral segment on MRI dated 10/20/2021 COMPARISON: Sacral MRI 10/20/[address] 10/28/2021 and pelvic and sacral x-rays 11/25/2021 TECHNIQUE: Multiplanar, multi sequential MRI sequences were performed FINDINGS: There is resolution of the previously visualized bone marrow edema of the right aspect of the S3 sacral segment. No fracture, dislocation, subluxation or osseous lesion. The sacroiliac joints are normal. The sacral neural segments are unremarkable. The lumbar spine is better evaluated on the lumbar spine MRI performed on the same day. The visualized subcutaneous soft tissues exhibit no edema, hematoma, mass or cyst. No muscle edema, hematoma, atrophy or fatty infiltration. IMPRESSION IMPRESSION: Resolution of the right sacral bone marrow edema. [facility] Radiology Study observation (narrative) [facility] MR Sacrum WO contrastOrdered By: Bruno Guzman on 12-04-2021 [facility] Work Phone: MRI SACRUM WITHOUT CONTRASTo n 12-04-2021 MRI SACRUM WITHOUT CONTRAST EXAM: MRI SACRUM WITHOUT CONTRAST HISTORY: Sacral pain. Bone marrow edema of the right S3 sacral segment on MRI dated 10/20/2021 COMPARISON: Sacral MRI 10/20/[address] 10/28/2021 and pelvic and sacral x-rays 11/25/2021 TECHNIQUE: Multiplanar, multi sequential MRI sequences were performed FINDINGS: There is resolution of the previously visualized bone marrow edema of the right aspect of the S3 sacral segment. No fracture, dislocation, subluxation or osseous lesion. The sacroiliac joints are normal. The sacral neural segments are unremarkable. The lumbar spine is better evaluated on the lumbar spine MRI performed on the same day. The visualized subcutaneous soft tissues exhibit no edema, hematoma, mass or cyst. No muscle edema, hematoma, atrophy or fatty infiltration. IMPRESSION: Resolution of the right sacral bone marrow edema. Normal [facility] LOWER EXTREMITY INJECTIONon 12-02-2021 Radiology Study observation (narrative) [facility] LOWER EXTREMITY INJECTIONon 11-25-2021 Zhanna Villeda 12/02/2021 11:06 AM LOWER EXTREMITY INJECTION Date/Time: 11/25/2021 10:30 AM Supporting Documentation Indications: pain Procedure Details: Procedure: trigger point injection Location: spine - Trigger Point Injection Details: lumbar paraspinal- R SI Needle size: 25 G Approach: dorsal Number of muscles injected: 1-2 muscle groups Medication Verification: I have personally verified and performed the final check of the medication(s) used in this procedure prior to administration. The following items were included during the verification process for medication(s) administered: drug name, strength, volume, expiration, physical integrity and appearance of the medication(s). Medications administered: 2 mL lidocaine 10 mg/mL; 12 mg betamethasone acetate 6 (3-3) MG/ML Patient tolerance: patient tolerated the procedure well with no immediate complications Consent: Consent was obtained prior to the procedure after discussion of the risks, benefits and alternatives, and expected outcomes were discussed with the patient. The possibilities of reaction to medication, bleeding, infection, the need for additional procedures, failure to diagnosis a condition, and creating a complication requiring operation were discussed with the patient. The patient concurred with the proposed plan, giving consent. Preparation: Patient was prepped in the usual sterile fashion. The patient was prepped with alcohol. [facility] CT ABDOMEN/PELVIS WITH CONTR Laverne 10-29-2021 CT ABDOMEN/PELVIS WITH CONTRAST EXAMINATION: CT ABDOMEN/PELVIS WITH CONTRAST, 10/28/2021 10:00 PM EDT HISTORY: Rectal bleeding. COMPARISON: None. TECHNIQUE: CT scan of the abdomen and pelvis was performed after the administration of 75 mL Isovue-[address] dose reduction technique was used, including Automated Exposure Control. FINDINGS: The visualized portions of the lung bases are clear. Abdomen: The liver and spleen enhance homogeneously without focal lesion. There is no intra or extrahepatic biliary duct dilatation. There is cholelithiasis without evidence of acute inflammation. There is mild periportal edema. The pancreas, adrenal glands, kidneys, and bowel loops, including the appendix, are unremarkable. There is no mesenteric or retroperitoneal lymphadenopathy. There is a tiny fat-containing umbilical hernia. Pelvis: The bladder and rectum are unremarkable. There is no iliac or inguinal lymphadenopathy. The uterus is present. The ovaries appear within normal limits by CT. Bone windows show no aggressive osseous lesions. IMPRESSION: 1. No specific etiology identified to explain the patient's rectal bleeding. 2. Cholelithiasis without evidence of acute inflammation. 3. Periportal edema which can be seen with aggressive fluid resuscitation versus acute hepatic inflammation. 4. Normal appendix. Normal [facility] CT SPINE LUMBAR WITHOUT CONT RASTon 10-29-2021 CT SPINE LUMBAR WITHOUT CONTRAST EXAM: CT SPINE LUMBAR WITHOUT CONTRAST HISTORY: Recent sacral fracture. COMPARISON: Correlation is made with MRI lumbar spine examination dated 10/14/2021. TECHNIQUE: Noncontrast axial CT images through the lumbar spine were obtained with coronal and sagittal reformats. Dose reduction techniques were achieved by using automated exposure control and/or adjustment of mA and/or kV according to patient size and/or use of iterative reconstruction technique. FINDINGS: There are 5 lumbar type vertebral bodies. No acute fracture or subluxation of the lumbar spine is seen. There is a possible nondisplaced fracture through the ventral aspect of the S3 sacral segment. The vertebral body heights are preserved. The vertebral elements are in anatomic alignment. The disc spaces are preserved. There does not appear to be any significant spinal canal or neural foraminal stenosis. Please see the separately dictated CT chest, abdomen, and pelvis examination of the same date for additional findings. IMPRESSION: 1. No acute or significant abnormality of the lumbar spine is seen. 2. Possible nondisplaced fracture of the ventral aspect of the S3 sacral segment. Normal [facility] CBCon 10-28-2021 ABSOLUTE BAS 0.0 10*3/uL Normal 0.0-0.2 [facility] Comment on above: Performed By: #### L IVR, ACBC, CHEM7F, SHCGT, LIPA2 #### Testing performed at [address] [address] ABSOLUTE EOS 0.10 10*3/uL Normal 0.0-0.7 [facility] Comment on above: Performed By: #### L IVR, ACBC, CHEM7F, SHCGT, LIPA2 #### Testing performed at [address] [address] ABSOLUTE NEUTROPHIL COUNT 3.5 10*3/uL Normal 1.4-6.5 [facility] Comment on above: Performed By: #### L IVR, ACBC, CHEM7F, SHCGT, LIPA2 #### Testing performed at [address] [address] Basophils/100 WBC (Bld) 0.4 % Normal 0.0-2.0 [facility] Comment on above: Performed By: #### L IVR, ACBC, CHEM7F, SHCGT, LIPA2 #### Testing performed at [address] [address] DTYPE AUTO DIFF Normal [facility] Comment on above: Performed By: #### L IVR, ACBC, CHEM7F, SHCGT, LIPA2 #### Testing performed at [address] [address] Eosinophils/100 WBC (Bld) 0.7 % Normal 0.0-11.0 [facility] Comment on above: Performed By: #### L IVR, ACBC, CHEM7F, SHCGT, LIPA2 #### Testing performed at [address] [address] Lymphocytes (Bld) [#/Vol] 2.90 10*3/uL Normal 1.2-3.4 [facility] Comment on above: Performed By: #### L IVR, ACBC, CHEM7F, SHCGT, LIPA2 #### Testing performed at [address] [address] Lymphocytes/100 WBC (Bld) 41.4 % Normal 20.0-55.0 [facility] Comment on above: Performed By: #### L IVR, ACBC, CHEM7F, SHCGT, LIPA2 #### Testing performed at [address] [address] Monocytes (Bld) [#/Vol] 0.6 10*3/uL Normal 0.0-0.7 [facility] Comment on above: Performed By: #### L IVR, ACBC, CHEM7F, SHCGT, LIPA2 #### Testing performed at [address] [address] Monocytes/100 WBC (Bld) 8.6 % Normal 0.0-10.0 [facility] Comment on above: Performed By: #### L IVR, ACBC, CHEM7F, SHCGT, LIPA2 #### Testing performed at [address] [address] Neutrophils/100 WBC (Bld) 48.9 % Normal 37.0-75.0 [facility] Comment on above: Performed By: #### L IVR, ACBC, CHEM7F, SHCGT, LIPA2 #### Testing performed at [address] [address] Erythrocyte distribution width (RBC) [Ratio] 13.7 % Normal 11.5-14.5 [facility] Comment on above: Performed By: #### L IVR, ACBC, CHEM7F, SHCGT, LIPA2 #### Testing performed at [address] [address] Hematocrit (Bld) [Volume fraction] 39.2 % Normal 36.0-48.0 [facility] Comment on above: Performed By: #### L IVR, ACBC, CHEM7F, SHCGT, LIPA2 #### Testing performed at [address] [address] Hemoglobin (Bld) [Mass/Vol] 13.5 g/dL Normal 12.0-16.0 [facility] Comment on above: Performed By: #### L IVR, ACBC, CHEM7F, SHCGT, LIPA2 #### Testing performed at [address] [address] MCH (RBC) [Entitic mass] 30.2 pg Normal 26.0-35.0 [facility] Comment on above: Performed By: #### L IVR, ACBC, CHEM7F, SHCGT, LIPA2 #### Testing performed at [address] [address] MCHC (RBC) [Mass/Vol] 34.4 g/dL Normal 27.0-37.0 [facility] Comment on above: Performed By: #### L IVR, ACBC, CHEM7F, SHCGT, LIPA2 #### Testing performed at [address] [address] MCV (RBC) [Entitic vol] 87.8 fL Normal 80.0-100.0 [facility] Comment on above: Performed By: #### L IVR, ACBC, CHEM7F, SHCGT, LIPA2 #### Testing performed at [facility] [place] [facility] [address] [place] [address] Platelet mean volume (Bld) [Entitic vol] 6.7 fL Low 7.4-11.0 [facility] Comment on above: Performed By: #### L IVR, ACBC, CHEM7F, SHCGT, LIPA2 #### Testing performed at [address] [address] Platelets (Bld) [#/Vol] 231 10*3/uL Normal 130.0-400.0 [facility] Comment on above: Performed By: #### L IVR, ACBC, CHEM7F, SHCGT, LIPA2 #### Testing performed at [address] [address] RBC (Bld) [#/Vol] 4.46 10*6/uL Normal 4.0-5.4 [facility] Comment on above: Performed By: #### L IVR, ACBC, CHEM7F, SHCGT, LIPA2 #### Testing performed at [address] [address] WBC (Bld) [#/Vol] 7.1 10*3/uL Normal 3.6-11.0 [facility] Comment on above: Performed By: #### L IVR, ACBC, CHEM7F, SHCGT, LIPA2 #### Testing performed at [address] [address] CHEM 7 FASTINGon --2021 Chloride [Moles/Vol] 107 mmol/L Normal 98-107 [facility] Comment on above: Performed By: #### L IVR, ACBC, CHEM7F, SHCGT, LIPA2 #### Testing performed at [address] [address] CO2 [Moles/Vol] 23 mmol/L Normal 22-30 [facility] Comment on above: Performed By: #### L IVR, ACBC, CHEM7F, SHCGT, LIPA2 #### Testing performed at [address] [address] Creatinine [Mass/Vol] 0.94 mg/dL Normal 0.52-1.04 [facility] Comment on above: Performed By: #### L IVR, ACBC, CHEM7F, SHCGT, LIPA2 #### Testing performed at [address] [address] EST. GFR, 93 ml/min/1.73sq.m [facility] Comment on above: Performed By: #### L IVR, ACBC, CHEM7F, SHCGT, LIPA2 #### Testing performed at [address] [address] EST. GFR,Non 77 ml/min/1.73sq.m Normal [facility] Comment on above: Performed By: #### L IVR, ACBC, CHEM7F, SHCGT, LIPA2 #### Testing performed at [address] [address] GFR Information Average GFR for 20-2 9 years old = 116. Normal [facility] Comment on above: Result Comment: [employer] zina Kidney disease, GFR = <60. Kidney failure, GFR = <15. The GFR estimate is not adjusted for extreme body surface area or acute process, nor has it been validated for women or ethnic groups other than and . Performed By: #### L IVR, ACBC, CHEM7F, SHCGT, LIPA2 #### Testing performed at [address] [address] Glucose [Mass/Vol] 81 mg/dL Normal 70-100 [facility] Comment on above: Result Comment: NORMAL <100 mg/dL PREDIABETES 101-126 mg/dL DIABETES 126 mg/dL or higher Performed By: #### L IVR, ACBC, CHEM7F, SHCGT, LIPA2 #### Testing performed at [address] [address] Potassium [Moles/Vol] 3.2 mmol/L Low 3.5-5.1 [facility] Comment on above: Performed By: #### L IVR, ACBC, CHEM7F, SHCGT, LIPA2 #### Testing performed at [address] [address] Sodium [Moles/Vol] 138 mmol/L Normal 136-145 [facility] Comment on above: Performed By: #### L IVR, ACBC, CHEM7F, SHCGT, LIPA2 #### Testing performed at [address] [address] Urea nitrogen [Mass/Vol] 25 mg/dL High 7-20 [facility] Comment on above: Performed By: #### L IVR, ACBC, CHEM7F, SHCGT, LIPA2 #### Testing performed at [address] [address] LIPASE,SERUMon 10-28-2021 LIPASE,SERUM 38 U/L Normal 23-300 [facility] Comment on above: Performed By: #### L IVR, ACBC, CHEM7F, SHCGT, LIPA2 #### Testing performed at [address] [address] LIVER PANELon 10-28-2021 Albumin [Mass/Vol] 4.9 g/dL Normal 3.5-5.0 [facility] Comment on above: Performed By: #### L IVR, ACBC, CHEM7F, SHCGT, LIPA2 #### Testing performed at [address] [address] ALP [Catalytic activity/Vol] 56 U/L Normal 38-126 [facility] Comment on above: Performed By: #### L IVR, ACBC, CHEM7F, SHCGT, LIPA2 #### Testing performed at [address] [address] ALT [Catalytic activity/Vol] 25 U/L Normal 14-54 [facility] Comment on above: Performed By: #### L IVR, ACBC, CHEM7F, SHCGT, LIPA2 #### Testing performed at [address] [place] [address] AST [Catalytic activity/Vol] 19 U/L Normal 15-41 [facility] Comment on above: Performed By: #### L IVR, ACBC, CHEM7F, SHCGT, LIPA2 #### Testing performed at [address] [address] Bilirubin [Mass/Vol] 0.5 mg/dL Normal 0.2-1.2 [facility] Comment on above: Performed By: #### L IVR, ACBC, CHEM7F, SHCGT, LIPA2 #### Testing performed at [address] [address] Bilirubin.indirect [Mass/Vol] 0.1 mg/dL Normal 0.0-0.2 [facility] Comment on above: Performed By: #### L IVR, ACBC, CHEM7F, SHCGT, LIPA2 #### Testing performed at [address] [address] Protein [Mass/Vol] 8.4 g/dL High 6.3-8.2 [facility] Comment on above: Performed By: #### L IVR, ACBC, CHEM7F, SHCGT, LIPA2 #### Testing performed at [address] [address] SERUM HCG QUALon 10-28-2021 SERUM BETA HCG,QUAL Negative Normal NEGATIVE [facility] Comment on above: Performed By: #### L IVR, ACBC, CHEM7F, SHCGT, LIPA2 #### Testing performed at [address] [address] URINE MACROSCOPICon 10-29-19 Bilirubin Ql (U) MODERATE Abnormal NEGATIVE [facility] Comment on above: Performed By: #### U KARIN, UMAC #### Testing performed at [address] [address] Clarity (U) CLEAR Normal CLEAR [facility] Comment on above: Performed By: #### U KARIN, UMAC #### Testing performed at [address] [address] Color (U) YELLOW Normal YELLOW [facility] Comment on above: Performed By: #### U KARIN, UMAC #### Testing performed at [address] [address] Glucose Ql (U) Negative Normal NEGATIVE [facility] Comment on above: Performed By: #### U KARIN, UMAC #### Testing performed at [address] [address] pH (U) 5.5 [pH] Normal 5.0-7.0 [facility] Comment on above: Performed By: #### U KARIN, UMAC #### Testing performed at [address] [address] Protein (U) [Mass/Vol] 30 mg/dL Abnormal NEGATIVE [facility] Comment on above: Performed By: #### U KARIN, UMAC #### Testing performed at [address] [address] URINE HEMOGLOBIN Negative Normal NEGATIVE [facility] Comment on above: Performed By: #### U KARIN, UMAC #### Testing performed at [address] [address] URINE KETONE TRACE Abnormal NEGATIVE [facility] Comment on above: Performed By: #### U KARIN, UMAC #### Testing performed at [address] [address] URINE LEUKOTEST Negative Normal NEGATIVE [facility] Comment on above: Performed By: #### U KARIN, UMAC #### Testing performed at [address] [address] URINE NITRATES Negative Normal NEGATIVE [facility] Comment on above: Performed By: #### U KARIN, UMAC #### Testing performed at [address] [address] URINE SPEC GRAVITY >1.030 High 1.010-1.025 [facility] Comment on above: Performed By: #### U KARIN, UMAC #### Testing performed at [address] [address] Urobilinogen Qn (U) 1.0 {Madhav'U}/dL Normal 0.2-1.0 [facility] Comment on above: Performed By: #### U KARIN, UMAC #### Testing performed at [address] [address] URINE MICROSCOPICon 10-29-19 22 BACTERIA TRACE Abnormal NEGATIVE [facility] Comment on above: Performed By: #### U KARIN, UMAC #### Testing performed at [address] [address] CASTS NONE Normal [facility] Comment on above: Performed By: #### U KARIN, UMAC #### Testing performed at [address] [address] CRYSTAL NONE Normal [facility] Comment on above: Performed By: #### U KARIN, UMAC #### Testing performed at [address] [address] Epithelial cells LM Ql (Urine sed) 1 TO 5 Normal [facility] Comment on above: Performed By: #### U KARIN, UMAC #### Testing performed at [address] [address] Mucus Ql (Urine sed) 1+ Abnormal NEGATIVE [facility] Comment on above: Performed By: #### U KARIN, UMAC #### Testing performed at [address] [address] URINE COMMENT CULTURE CRITERIA NOT MET, NO CULTURE PERFORMED. Normal [facility] Comment on above: Performed By: #### U KARIN, UMAC #### Testing performed at [address] [address] URINE RBC'S Negative Normal NEGATIVE [facility] Comment on above: Performed By: #### U KARIN, UMAC #### Testing performed at [address] [address] URINE WBC'S 1 TO 5 Normal NEGATIVE [facility] Comment on above: Performed By: #### U KARIN, UMAC #### Testing performed at [address] [address] MRI SACRUM WITHOUT CONTRASTo n 10-20-2021 MRI SACRUM WITHOUT CONTRAST EXAM: MRI SACRUM WITHOUT CONTRAST HISTORY: Pain COMPARISON: X-rays 10/11/2021 TECHNIQUE: Multiplanar, multi sequential MRI sequences were performed. FINDINGS: No fracture, dislocation, subluxation or osseous lesion of the coccyx. The region with the arrow on the x-rays is normal. However, there is a linear area of bone marrow edema within the right lateral aspect of the S3 sacral segment (coronal 18, axial 27 and sagittal 9). No displaced fracture, dislocation or subluxation. The sacroiliac joints are normal. No visualized gross deep pelvic abnormality. No visualized muscle edema, hematoma, atrophy or fatty infiltration. The superficial subcutaneous soft tissues are free of edema, hematoma, mass or cyst. IMPRESSION: 1. Bone marrow edema of the right aspect of the S3 sacral segment which may represent a nondisplaced fracture. No displaced fracture, dislocation or subluxation. 2. The coccyx is normal Normal [facility] MR Lumbar spine WO contrasto n 10-14-2021 IMPRESSION: 1. Since 01/29/2021, interval development of bone marrow edema in the S3 vertebral body, most likely due to nondisplaced fracture. The more inferior sacrum/coccyx is not included on this MRI. 2. L5-S1: A small annular bulge remains unchanged, without central spinal canal stenosis or foraminal stenosis at any visualized level. RADIOLOGY CLINICAL HISTORY: Recent fall, with coccyx fracture. Low back pain. MRI LUMBAR SPINE WITHOUT CONTRAST: TECHNIQUE: Sagittal STIR, T1, T2, axial T1 and T2-weighted images were obtained through the lumbar spine, from the level of the inferior T11 vertebral endplate through the S3 level. COMPARISON: Radiographs of 10/12/2019 07/12/2020. MRI of 01/29/2021. FINDINGS: The conus medullaris terminates normally at the inferior L1 level and the visualized distal spinal cord appears normal. The lumbar spine is in anatomic alignment. Since 01/29/2021, there has been interval development of bone marrow edema in the S3 vertebral body, most likely due to nondisplaced fracture. Note that the more inferior sacrum/coccyx is not included on these images. The bone marrow is otherwise normal in signal. No vertebral body compression fracture. L5-S1: A small annular bulge remains unchanged, without central spinal canal stenosis or foraminal stenosis. T11-12 through L4-5 levels: Normal. No disc herniation. No central spinal canal stenosis or foraminal stenosis. RADIOLOGY Bret De La Cruz MD - 10/14/2021 CLINICAL HISTORY: Recent fall, with coccyx fracture. Low back pain. MRI LUMBAR SPINE WITHOUT CONTRAST: TECHNIQUE: Sagittal STIR, T1, T2, axial T1 and T2-weighted images were obtained through the lumbar spine, from the level of the inferior T11 vertebral endplate through the S3 level. COMPARISON: Radiographs of 10/12/2019 07/12/2020. MRI of 01/29/2021. FINDINGS: The conus medullaris terminates normally at the inferior L1 level and the visualized distal spinal cord appears normal. The lumbar spine is in anatomic alignment. Since 01/29/2021, there has been interval development of bone marrow edema in the S3 vertebral body, most likely due to nondisplaced fracture. Note that the more inferior sacrum/coccyx is not included on these images. The bone marrow is otherwise normal in signal. No vertebral body compression fracture. L5-S1: A small annular bulge remains unchanged, without central spinal canal stenosis or foraminal stenosis. T11-12 through L4-5 levels: Normal. No disc herniation. No central spinal canal stenosis or foraminal stenosis. IMPRESSION IMPRESSION: 1. Since 01/29/2021, interval development of bone marrow edema in the S3 vertebral body, most likely due to nondisplaced fracture. The more inferior sacrum/coccyx is not included on this MRI. 2. L5-S1: A small annular bulge remains unchanged, without central spinal canal stenosis or foraminal stenosis at any visualized level. [facility] Rad[facility] Study observation (narrative) [facility] MR Lumbar spine WO contrastO rdered By: Bret De La Cruz on 10-14-2021 [facility] Work Phone: MRI SPINE LUMBAR WITHOUT CON TRASTon 10-14-2021 MRI SPINE LUMBAR WITHOUT CONTRAST CLINICAL HISTORY: Recent fall, with coccyx fracture. Low back pain. MRI LUMBAR SPINE WITHOUT CONTRAST: TECHNIQUE: Sagittal STIR, T1, T2, axial T1 and T2-weighted images were obtained through the lumbar spine, from the level of the inferior T11 vertebral endplate through the S3 level. COMPARISON: Radiographs of 10/12/2019 07/12/2020. MRI of 01/29/2021. FINDINGS: The conus medullaris terminates normally at the inferior L1 level and the visualized distal spinal cord appears normal. The lumbar spine is in anatomic alignment. Since 01/29/2021, there has been interval development of bone marrow edema in the S3 vertebral body, most likely due to nondisplaced fracture. Note that the more inferior sacrum/coccyx is not included on these images. The bone marrow is otherwise normal in signal. No vertebral body compression fracture. L5-S1: A small annular bulge remains unchanged, without central spinal canal stenosis or foraminal stenosis. T11-12 through L4-5 levels: Normal. No disc herniation. No central spinal canal stenosis or foraminal stenosis. IMPRESSION: 1. Since 01/29/2021, interval development of bone marrow edema in the S3 vertebral body, most likely due to nondisplaced fracture. The more inferior sacrum/coccyx is not included on this MRI. 2. L5-S1: A small annular bulge remains unchanged, without central spinal canal stenosis or foraminal stenosis at any visualized level. Normal [facility] XR HIP RIGHT 2 VIEWSon 10-14 XR HIP RIGHT 2 VIEWS EXAM: XR HIP RIGHT 2 VIEWS HISTORY: Right hip pain COMPARISON: None. TECHNIQUE: 3 views FINDINGS: Bilateral hip joint spaces are intact. Osseous pelvic ring is intact. There is no fracture or dislocation. No evidence of femoral head osteonecrosis. IMPRESSION: No acute findings Normal [facility] XR Hip - right 2 Viewson IMPRESSION: No acute findings RADIOLOGY EXAM: XR HIP RIGHT 2 VIEWS HISTORY: Right hip pain COMPARISON: None. TECHNIQUE: 3 views FINDINGS: Bilateral hip joint spaces are intact. Osseous pelvic ring is intact. There is no fracture or dislocation. No evidence of femoral head osteonecrosis. RADIOLOGY Pablo Orosco MD - 10/14/2021 EXAM: XR HIP RIGHT 2 VIEWS HISTORY: Right hip pain COMPARISON: None. TECHNIQUE: 3 views FINDINGS: Bilateral hip joint spaces are intact. Osseous pelvic ring is intact. There is no fracture or dislocation. No evidence of femoral head osteonecrosis. IMPRESSION IMPRESSION: No acute findings [facility] Radiology Study observation (narrative) [facility] XR Hip - right 2 ViewsOrdere d By: Pablo Orosco on 10-14-2021 [facility] Work Phone: URINALYSIS, MACROon 10-12-19 22 Bilirubin Ql (U) Negative NEGATIVE [facility] Clarity (U) CLEAR CLEAR [facility] Color (U) YELLOW YELLOW [facility] Glucose Test strip (U) [Mass/Vol] Negative NEGATIVE mg/dl [facility] Hemoglobin Ql (U) Negative NEGATIVE [facility] Ketones (U) [Mass/Vol] Negative NEGAT THEA mg/dl [facility] Leukocyte esterase Test strip Ql (U) Negative NEGATIVE [facility] Nitrite Ql (U) Negative NEGATIVE [facility] pH (U) 6.0 [pH] [facility] Protein Ql (U) Negative NEGATIVE mg/dl [facility] Specific gravity (U) [Rel density] 1.020 [facility] Urobilinogen (U) [Mass/Vol] 0.2 mg/dL [facility] URINE MACROSCOPICon 10-12-19 Bilirubin Ql (U) Negative Normal NEGATIVE [facility] Clarity (U) CLEAR Normal CLEAR [facility] Color (U) YELLOW Normal YELLOW [facility] Glucose Ql (U) Negative Normal NEGATIVE [facility] pH (U) 6.0 [pH] Normal 5.0-7.0 [facility] URINE HEMOGLOBIN Negative Normal NEGATIVE [facility] URINE KETONE Negative Normal NEGATIVE [facility] URINE LEUKOTEST Negative Normal NEGATIVE [facility] URINE NITRATES Negative Normal NEGATIVE [facility] URINE SPEC GRAVITY 1.020 Normal 1.010-1.025 [facility] URINE TOTAL PROTEIN Negative Normal NEGATIVE [facility] Urobilinogen Qn (U) 0.2 {Madhav'U}/dL Normal 0.2-1.0 [facility] XR SACRUM/COCCYX 2+ VWon XR SACRUM/COCCYX 2+ VW EXAM: XR SACRUM/COCCYX 2+ VW HISTORY: fall COMPARISON: None. TECHNIQUE: 3 views FINDINGS: The sacral alae are normal. There is cortical irregularity of the distal coccygeal segment, suggestive for nondisplaced coccygeal fracture. Pelvic phleboliths. IMPRESSION: Findings suggestive for nondisplaced coccygeal fracture. Normal [facility] XR SPINE LUMBOSACRAL AP AND LATERALon 10-11-2021 XR SPINE LUMBOSACRAL AP AND LATERAL EXAM: XR SPINE LUMBOSACRAL AP AND LATERAL HISTORY: fall COMPARISON: None. TECHNIQUE: 3 views FINDINGS: Normal alignment. No evidence of fracture/dislocation or significant spondylosis. Moderate retained stool noted in the colon. IMPRESSION: Unremarkable. Normal [facility] XR Sacrum and Coccyx 2 Views on 10-11-2021 IMPRESSION: Findings suggestive for nondisplaced coccygeal fracture. RADIOLOGY EXAM: XR SACRUM/COCCYX 2+ VW HISTORY: fall COMPARISON: None. TECHNIQUE: 3 views FINDINGS: The sacral alae are normal. There is cortical irregularity of the distal coccygeal segment, suggestive for nondisplaced coccygeal fracture. Pelvic phleboliths. RADIOLOGY Ceasar Shah MD - 10/11/2021 EXAM: XR SACRUM/COCCYX 2+ VW HISTORY: fall COMPARISON: None. TECHNIQUE: 3 views FINDINGS: The sacral alae are normal. There is cortical irregularity of the distal coccygeal segment, suggestive for nondisplaced coccygeal fracture. Pelvic phleboliths. IMPRESSION IMPRESSION: Findings suggestive for nondisplaced coccygeal fracture. [facility] Radiology Study observation (narrative) [facility] XR Spine lumbosacral junctio n Viewson 10-11-2021 IMPRESSION: Unremarkable. RADIOLOGY EXAM: XR SPINE LUMBOSACRAL AP AND LATERAL HISTORY: fall COMPARISON: None. TECHNIQUE: 3 views FINDINGS: Normal alignment. No evidence of fracture/dislocation or significant spondylosis. Moderate retained stool noted in the colon. RADIOLOGY Ceasar Shah MD - 10/11/2021 EXAM: XR SPINE LUMBOSACRAL AP AND LATERAL HISTORY: fall COMPARISON: None. TECHNIQUE: 3 views FINDINGS: Normal alignment. No evidence of fracture/dislocation or significant spondylosis. Moderate retained stool noted in the colon. IMPRESSION IMPRESSION: Unremarkable. [facility] Radiology Study observation (narrative) [facility] XR Spine lumbosacral junctio n ViewsOrdered By: Ceasar August on 10-11-2021 [facility] Work Phone: POC Urinalysis Dipstick,Auto UCon 08-20-2021 Bilirubin Ql (U) Negative Negative [facility] th Clarity, UA Clear Clear [facility] Color (U) Yellow Yellow, Light Yellow, Dark Yellow [facility] Glucose Ql (U) Negative Normal, Negative mg/dL [facility] Hemoglobin Ql (U) Moderate Abnormal Negative [facility] Interpretation and review of laboratory results Abnormal [facility] Ketones Ql (U) Negative Negative mg/dL [facility] Leukocyte esterase Test strip Ql (U) Small Abnormal Negative [facility] Nitrite Ql (U) Negative Negative [facility] pH (U) 6.0 [pH] [facility] Protein Ql (U) 300 Abnormal Negative mg/dL [facility] Specific gravity (U) [Rel density] 1.030 Abnormal [facility] Urobilinogen Qn (U) 0.2 mg/dL <2.0, 0. 2, Normal, Negative, 1.0, 2.0, <1.0 [facility] CBCon 05-30-2021 ABSOLUTE BAS 0.0 10*3/uL Normal 0.0-0.2 [facility] ABSOLUTE EOS 0.00 10*3/uL Normal 0.0-0.7 [facility] ABSOLUTE NEUTROPHIL COUNT 1.9 10*3/uL Normal 1.4-6.5 [facility] Basophils/100 WBC (Bld) 0.9 % Normal 0.0-2.0 [facility] DTYPE AUTO DIFF Normal [facility] Eosinophils/100 WBC (Bld) 1.2 % Normal 0.0-11.0 [facility] Lymphocytes (Bld) [#/Vol] 1.70 10*3/uL Normal 1.2-3.4 [facility] Lymphocytes/100 WBC (Bld) 41.2 % Normal 20.0-55.0 [facility] Monocytes (Bld) [#/Vol] 0.4 10*3/uL Normal 0.0-0.7 [facility] Monocytes/100 WBC (Bld) 10.1 % High 0.0-10.0 [facility] Neutrophils/100 WBC (Bld) 46.6 % Normal 37.0-75.0 [facility] Erythrocyte distribution width (RBC) [Ratio] 12.2 % Normal 11.5-14.5 [facility] Hematocrit (Bld) [Volume fraction] 42.0 % Normal 36.0-48.0 [facility] Hemoglobin (Bld) [Mass/Vol] 14.3 g/dL Normal 12.0-16.0 [facility] MCH (RBC) [Entitic mass] 30.1 pg Normal 26.0-35.0 [facility] MCHC (RBC) [Mass/Vol] 34.1 g/dL Normal 27.0-37.0 [facility] MCV (RBC) [Entitic vol] 88.2 fL Normal 80.0-100.0 [facility] Platelet mean volume (Bld) [Entitic vol] 7.2 fL Low 7.4-11.0 [facility] Platelets (Bld) [#/Vol] 201 10*3/uL Normal 130.0-400.0 [facility] RBC (Bld) [#/Vol] 4.76 10*6/uL Normal 4.0-5.4 [facility] WBC (Bld) [#/Vol] 4.0 10*3/uL Normal 3.6-11.0 [facility] CBC, EDIF, PLATELETon 2021 ABSOLUTE BASOPHIL COUNT 0.0 10*3/uL 0.0 - 0.2 10*3/uL [facility] Basophils/100 WBC (Bld) 0.9 % 0.0 - 2.0 % [facility] Differential cell count method Nom (Bld) AUTO DIFF % [facility] Eosinophils (Bld) [#/Vol] 0.00 10*3/uL 0.0 - 0.7 10*3/uL [facility] Eosinophils/100 WBC (Bld) 1.2 % 0.0 - 11.0 % [facility] Erythrocyte distribution width (RBC) [Ratio] 12.2 % 11.5 - 14.5 % [facility] Hematocrit (Bld) [Volume fraction] 42.0 % 36.0 - 48.0 % [facility] Hemoglobin (Bld) [Mass/Vol] 14.3 g/dL [facility] Interpretation and review of laboratory results Abnormal [facility] Lymphocytes (Bld) [#/Vol] 1.70 10*3/uL 1.2 - 3.4 10*3/uL [facility] Lymphocytes/100 WBC (Bld) 41.2 % 20.0 - 55.0 % [facility] MCH (RBC) [Entitic mass] 30.1 pg 26. 0 - 35.0 PG [facility] MCHC (RBC) [Mass/Vol] 34.1 g/dL [facility] MCV (RBC) [Entitic vol] 88.2 fL A [facility] Monocytes (Bld) [#/Vol] 0.4 10*3/uL 0.0 - 0.7 10*3/uL [facility] Monocytes/100 WBC (Bld) 10.1 % High 0.0 - 10.0 % [facility] Neutrophils (Bld) [#/Vol] 1.9 10*3/uL 1.4 - 6.5 10*3/uL [facility] Neutrophils/100 WBC (Bld) 46.6 % 37.0 - 75.0 % [facility] Platelet mean volume (Bld) [Entitic vol] 7.2 fL Low [facility] Platelets (Bld) [#/Vol] 201 10*3/uL 130. 0 - 400.0 10*3/uL [facility] RBC (Bld) [#/Vol] 4.76 10*6/uL 4.0 - 5.4 10*6/uL [facility] WBC (Bld) [#/Vol] 4.0 10*3/uL 3.6 - 11.0 10*3/uL [facility] CHEM 7 FASTINGon 05-30-2021 Chloride [Moles/Vol] 107 mmol/L Normal 98-107 [facility] Comment on above: Result Comment: Geeta clark note: Triglyceride levels of 600mg/dL or higher may positively bias chloride results by approximately 2.1 mmol CO2 [Moles/Vol] 23 mmol/L Normal 22-30 [facility] Creatinine [Mass/Vol] 0.65 mg/dL Low 0.7-1.2 [facility] EST. GFR, >60 Normal [facility] EST. GFR,Non >60 Normal [facility] GFR Information Average GFR for 20-2 9 years old = 116. Normal [facility] Comment on above: Result Comment: Engine [employer]er zina Kidney disease, GFR = <60. Kidney failure, GFR = <15. The GFR estimate is not adjusted for extreme body surface area or acute process, nor has it been validated for women or ethnic groups other than and . Glucose [Mass/Vol] 103 mg/dL High 70-100 [facility] Comment on above: Result Comment: NORMAL <100 mg/dL PREDIABETES 101-126 mg/dL DIABETES 126 mg/dL or higher Potassium [Moles/Vol] 3.9 mmol/L Normal 3.5-5.1 [facility] Sodium [Moles/Vol] 141 mmol/L Normal 137-145 [facility] Urea nitrogen [Mass/Vol] 15 mg/dL Normal 7-20 [facility] CHEM 7 (LYTES,BUN,CREA,GLUC) on 05-30-2021 Chloride [Moles/Vol] 107 mmol/L [facility] Comment on above: Please note: Triglyc eride levels of 600mg/dL or higher may positively bias chloride results by approximately 2.1 mmol CO2 [Moles/Vol] 23 mmol/L [facility] Creatinine [Mass/Vol] 0.65 mg/dL Low [facility] GFR COMMENT Average GFR for 20-2 9 years old = 116. [facility] Comment on above: Chronic Kidney disea se, GFR = <60. Kidney failure, GFR = <15. The GFR estimate is not adjusted for extreme body surface area or acute process, nor has it been validated for women or ethnic groups other than and . GFR/1.73 sq M.predicted among blacks MDRD (S/P/Bld) [Vol rate/Area] mL/min/{1.73_m2} ml/min/1.73s q.m [facility] GFR/1.73 sq M.predicted among non-blacks MDRD (S/P/Bld) [Vol rate/Area] mL/min/{1.73_m2} ml/min/1.73s q.m [facility] Glucose post fast [Mass/Vol] 103 mg/dL High [facility] Comment on above: NORMAL <100 mg/dL PREDIABETES 101-126 mg/dL DIABETES 126 mg/dL or higher Interpretation and review of laboratory results Abnormal [facility] Potassium [Moles/Vol] 3.9 mmol/L [facility] Sodium [Moles/Vol] 141 mmol/L [facility] Urea nitrogen [Mass/Vol] 15 mg/dL [facility] HCG ( test) Ql (U)o n 05-30-2021 [facility] HCG QUALITATIVE, URINEon HCG ( test) Ql (U) Negative [facility] HEPATIC FUNCTION PANELon Albumin [Mass/Vol] 4.5 g/dL [facility] ALP [Catalytic activity/Vol] 43 U/L [facility] ALT [Catalytic activity/Vol] 15 U/L <35 IU/L [facility] AST [Catalytic activity/Vol] 20 U/L [facility] Bilirubin [Mass/Vol] 0.6 mg/dL [facility] Bilirubin.direct [Mass/Vol] 0.1 mg/dL [facility] Protein [Mass/Vol] 7.7 g/dL [facility] LIPASEon 05-30-2021 Lipase [Catalytic activity/Vol] 251 U/L 23 - 300 U/L [facility] LIPASE,SERUMon 05-30-2021 LIPASE,SERUM 251 U/L Normal 23-300 [facility] LIVER PANELon 05-30-2021 Albumin [Mass/Vol] 4.5 g/dL Normal 2.9-5.3 [facility] ALP [Catalytic activity/Vol] 43 U/L Normal 38-126 [facility] ALT [Catalytic activity/Vol] 15 U/L Normal <35 [facility] AST [Catalytic activity/Vol] 20 U/L Normal 14-36 [facility] Bilirubin [Mass/Vol] 0.6 mg/dL Normal 0.2-1.3 [facility] Bilirubin.indirect [Mass/Vol] 0.1 mg/dL Normal 0-0.4 [facility] Protein [Mass/Vol] 7.7 g/dL Normal 6.3-8.2 [facility] MONO SCREENon 05-30-2021 MONO SCREEN Negative Normal NEGATIVE [facility] MONONUCLEOSIS SCREENon 05-30 Heterophile Ab IA Ql Negative NEGATIVE [facility] No Panel Informationon 05-30 [facility] Interpretation and review of laboratory results Abnormal [facility] URINALYSIS, MACROon 05-30-19 22 Bilirubin Ql (U) Negative NEGATIVE [facility] Clarity (U) CLEAR CLEAR [facility] Color (U) YELLOW YELLOW [facility] Glucose Test strip (U) [Mass/Vol] Negative NEGATIVE mg/dl [facility] Hemoglobin Ql (U) TRACE-INTACT Abnormal NEGATIVE [facility] Ketones (U) [Mass/Vol] Negative NEGAT THEA mg/dl [facility] Leukocyte esterase Test strip Ql (U) Negative NEGATIVE [facility] Nitrite Ql (U) Negative NEGATIVE [facility] pH (U) 6.0 [pH] [facility] Protein Ql (U) Negative NEGATIVE mg/dl [facility] Specific gravity (U) [Rel density] 1.025 [facility] Urobilinogen (U) [Mass/Vol] 0.2 mg/dL [facility] URINE HCG QUALon 05-30-2021 Beta HCG ( test) Ql (U) Negative Normal [facility] URINE MACROSCOPICon 05-30-19 22 Bilirubin Ql (U) Negative Normal NEGATIVE [facility] Clarity (U) CLEAR Normal CLEAR [facility] Color (U) YELLOW Normal YELLOW [facility] Glucose Ql (U) Negative Normal NEGATIVE [facility] pH (U) 6.0 [pH] Normal 5.0-7.0 [facility] URINE HEMOGLOBIN TRACE-INTACT Abnormal NEGATIVE [facility] URINE KETONE Negative Normal NEGATIVE [facility] URINE LEUKOTEST Negative Normal NEGATIVE [facility] URINE NITRATES Negative Normal NEGATIVE [facility] URINE SPEC GRAVITY 1.025 Normal 1.010-1.025 [facility] URINE TOTAL PROTEIN Negative Normal NEGATIVE [facility] Urobilinogen Qn (U) 0.2 {Madhav'U}/dL Normal 0.2-1.0 [facility] URINE MICROSCOPICon 05-30-19 22 BACTERIA TRACE Abnormal NEGATIVE [facility] CASTS NONE Normal NONE [facility] CRYSTAL NONE Normal NONE [facility] Epithelial cells LM Ql (Urine sed) 5 TO 10 Normal [facility] Mucus Ql (Urine sed) Negative Normal NEGATIVE [facility] URINE COMMENT CULTURE CRITERIA NOT MET, NO CULTURE PERFORMED. Normal [facility] URINE RBC'S Negative Normal NEGATIVE [facility] URINE WBC'S Negative Normal NEGATIVE [facility] Bacteria LM.HPF (Urine sed) [#/Area] TRACE Abnormal NEGATIVE [facility] Casts LM.LPF (Urine sed) [#/Area] NONE NONE /LPF [facility] Crystals LM Nom (Urine sed) NONE NONE [facility] Epithelial cells LM Ql (Urine sed) 5 TO 10 /HPF [facility] Mucus Ql (Urine sed) Negative NEGATIVE [facility] RBC LM.HPF (Urine sed) [#/Area] Negative NEGATIVE /HPF [facility] Urine sediment comments LM Hung (Urine sed) CULTURE CRITERIA NOT MET, NO CULTURE PERFORMED. [facility] WBC LM.HPF (Urine sed) [#/Area] Negative NEGATIVE /HPF [facility] COVID-19, MOLECULARon 2020 SARS-CoV-2 (COVID-19) Ab IA Ql Not detected Normal Not Detected [facility] Comment on above: Result Comment: This test was performed under the FDA's Emergency Use Authorization (EUA). Testing was performed using the [employer] NOW COVID-19 assay on the ID [employer] platform. This test has not been approved for use in asymptomatic patients and its performance in this patient population has not been evaluated. Negative results do not rule out the presence of SARS-CoV-2/COVID-19. Fact sheets for the EUA can be found at the following links: For Healthcare Providers: https://www.fda.gov/media/292640/download For Patients: https://www.fda.gov/media/449450/download COVID-19, Molecularon 2020 SARS-CoV-2 (COVID-19) RdRp gene SHIRA+probe Ql (Resp) Not detected Not Detected [facility] Comment on above: This test was perfor med under the FDA's Emergency Use Authorization (EUA). Testing was performed using the [employer] NOW COVID-19 assay on the [employer] NOW platform. This test has not been approved for use in asymptomatic patients and its performance in this patient population has not been evaluated. Negative results do not rule out the presence of SARS-CoV-2/COVID-19. Fact sheets for the EUA can be found at the following links: For Healthcare Providers: https://www.fda.gov/media/403733/download For Patients: https://www.fda.gov/media/512075/download SARS-CoV-2 (COVID-19) RdRp g cary SHIRA+probe Ql (Resp)on 02-21-2021 Interpretation and review of laboratory results Normal [facility] HCG ( test) Ql (U)o n 01-09-2021 [facility] HCG QUALITATIVE, URINEon HCG ( test) Ql (U) Negative [facility] URINALYSIS, MACROon 01-10-20 21 Bilirubin Ql (U) Negative NEGATIVE [facility] Clarity (U) CLEAR CLEAR [facility] Color (U) YELLOW YELLOW [facility] Glucose Test strip (U) [Mass/Vol] Negative NEGATIVE mg/dl [facility] Hemoglobin Ql (U) Negative NEGATIVE [facility] Ketones (U) [Mass/Vol] Negative NEGAT THEA mg/dl [facility] Leukocyte esterase Test strip Ql (U) Negative NEGATIVE [facility] Nitrite Ql (U) Negative NEGATIVE [facility] pH (U) 7.0 [pH] [facility] Protein Ql (U) Negative NEGATIVE mg/dl [facility] Specific gravity (U) [Rel density] 1.010 [facility] Urobilinogen (U) [Mass/Vol] 0.2 mg/dL [facility] XR SPINE LUMBOSACRAL 5 VIEWS on 01-09-2021 IMPRESSION: No significant bony abnormalities. RADIOLOGY EXAMINATION: XR SPIN E LUMBOSACRAL 5 VIEWS, 01/09/2021 1:44 PM EDT HISTORY: Back pain ?2 weeks, no trauma COMPARISON: None. TECHNIQUE: Lumbar spine x-ray: 5 view(s). FINDINGS: The vertebral body heights are maintained. The disc heights are maintained. There are no acute fractures. [facility] Renata Ladd MD - 01/09/2021 EXAMINATION: XR SPINE LUMBOSACRAL 5 VIEWS, 01/09/2021 1:44 PM EDT HISTORY: Back pain ?2 weeks, no trauma COMPARISON: None. TECHNIQUE: Lumbar spine x-ray: 5 view(s). FINDINGS: The vertebral body heights are maintained. The disc heights are maintained. There are no acute fractures. IMPRESSION IMPRESSION: No significant bony abnormalities. [facility] Radiology Study observation (narrative) [facility] XR SPINE LUMBOSACRAL 5 VIEWS Ordered By: Renata Ladd on 01-09-2021 [facility] Work Phone: HCG ( test) Ql (U)o n 01-05-2021 Internal Control Pass [facility] No Panel Informationon 01-05 Interpretation and review of laboratory results Normal [facility] POC , Urineon 01-05 HCG ( test) Ql (U) Negative Negative [facility] POC URINALYSIS, AUTO OH URGE NT CAREon 01-05-2021 Bilirubin Ql (U) Negative Negative [facility] Clarity, UA Clear Clear [facility] Color (U) Yellow Yellow, Light Yellow, Dark Yellow [facility] Glucose Ql (U) Negative Normal, Negative mg/dL [facility] Hemoglobin Ql (U) Negative Negative [facility] Ketones Ql (U) Negative Negative mg/dL [facility] Leukocyte esterase Test strip Ql (U) Negative Negative [facility] Nitrite Ql (U) Negative Negative [facility] pH (U) 6.5 [pH] [facility] Protein Ql (U) Negative Negative mg/dL [facility] Specific gravity (U) [Rel density] 1.015 [facility] Urobilinogen Qn (U) 0.2 mg/dL <2.0, 0. 2, Normal, Negative, 1.0, 2.0, <1.0 [facility] MRI BRAIN WITHOUT CONTRASTon 07-18-2020 IMPRESSION: Normal MRI of the brain. [facility] MRI BRAIN WITHOUT CONTRAST, 07/18/2020. HISTORY: Migraine headaches. COMPARISON: CT head without contrast, 08/31/2018. TECHNIQUE: Sagittal and axial T1, axial T2, FLAIR, diffusion and T2 gradient images were obtained. FINDINGS: Paranasal sinuses are clear. Mastoid air cells are clear. Nasopharynx normal. Manager Clinical spaces are normal. Orbital contents normal. No hydrocephalus. No extra-axial fluid collections. No mass effect. No shift of midline. No abnormal signal in the brain. No diffusion restriction. No acute infarction. Pituitary gland is normal in size. No cerebellar tonsil ectopia. No masses. [facility] User, Interfaces - 07/18/2020 1:13 PM EST MRI BRAIN WITHOUT CONTRAST, 07/18/2020. HISTORY: Migraine headaches. COMPARISON: CT head without contrast, 08/31/2018. TECHNIQUE: Sagittal and axial T1, axial T2, FLAIR, diffusion and T2 gradient images were obtained. FINDINGS: Paranasal sinuses are clear. Mastoid air cells are clear. Nasopharynx normal. Manager Clinical spaces are normal. Orbital contents normal. No hydrocephalus. No extra-axial fluid collections. No mass effect. No shift of midline. No abnormal signal in the brain. No diffusion restriction. No acute infarction. Pituitary gland is normal in size. No cerebellar tonsil ectopia. No masses. IMPRESSION IMPRESSION: Normal [facility] of the brain. [facility]IEWSon 04-23 IMPRESSION: Suspecte d film artifact along the plantar aspect of the foot at the tarsometatarsal junction. No convincing radiopaque foreign body in the soft tissues of the heel. [facility]: XR FOOT RIGHT 3 VIEWS HISTORY: r/o FB heel COMPARISON: None. TECHNIQUE: 3 views of the right foot are performed. FINDINGS: There is no acute fracture. The bony structures are intact. The soft tissues are unremarkable. There are tiny densities along the plantar aspect of the foot in the metatarsal tarsal region, which may reflect film artifact. No soft tissue foreign body seen in the region of the heel. [facility] - 05/12/2020 10:01 PM EST EXAM: XR FOOT RIGHT 3 VIEWS HISTORY: r/o FB heel COMPARISON: None. TECHNIQUE: 3 views of the right foot are performed. FINDINGS: There is no acute fracture. The bony structures are intact. The soft tissues are unremarkable. There are tiny densities along the plantar aspect of the foot in the metatarsal tarsal region, which may reflect film artifact. No soft tissue foreign body seen in the region of the heel. IMPRESSION IMPRESSION: Suspected film artifact along the plantar aspect of the foot at the tarsometatarsal junction. No convincing radiopaque foreign body in the soft tissues of the heel. [facility] HCG QUALITATIVE, URINEon HCG ( test) Ql (U) Negative [facility] BASIC METABOLIC PANELon 08-21 Anion gap [Moles/Vol] 8 mmol/L [facility] Calcium [Mass/Vol] 9.5 mg/dL [facility] Chloride [Moles/Vol] 105 mmol/L [facility] Comment on above: Please note: Triglyc eride levels of 600mg/dL or higher may positively bias chloride results by approximately 2.1 mmol CO2 [Moles/Vol] 24 mmol/L [facility] Creatinine [Mass/Vol] 0.5 mg/dL Low [facility] GFR/1.73 sq M predicted among blacks MDRD (S/P/Bld) [Vol rate/Area] mL/min/{1.73_m2} ml/min/1.73s q.m [facility] GFR/1.73 sq M predicted among non-blacks MDRD (S/P/Bld) [Vol rate/Area] Average GFR for 20-29 years old = 116. [facility] Comment on above: Chronic Kidney disea se, GFR = <60. Kidney failure, GFR = <15. The GFR estimate is not adjusted for extreme body surface area or acute process, nor has it been validated for women or ethnic groups other than and . GFR/1.73 sq M predicted among non-blacks MDRD (S/P/Bld) [Vol rate/Area] mL/min/{1.73_m2} ml/min/1.73s q.m [facility] Glucose post fast [Mass/Vol] 84 mg/dL [facility] Comment on above: NORMAL <100 mg/dL PREDIABETES 101-126 mg/dL DIABETES 126 mg/dL or higher Potassium [Moles/Vol] 3.6 mmol/L [facility] Sodium [Moles/Vol] 137 mmol/L [facility] Urea nitrogen [Mass/Vol] 10 mg/dL [facility] CBC, EDIF, PLATELETon 2018 ABSOLUTE BASOPHIL COUNT 0.0 X10 [facility] Basophils/100 WBC (Bld) 0.4 % 0 - 2 % [facility] Differential cell count method Nom (Bld) AUTO DIFF % [facility] Eosinophils (Bld) [#/Vol] 0.00 10*3/uL X10 [facility] Eosinophils/100 WBC (Bld) 0.7 % 0 - 11 % [facility] Erythrocyte distribution width (RBC) [Ratio] 13.8 % 11.5 - 14.5 % [facility] Hematocrit (Bld) [Volume fraction] 37.3 % 36 - 48 % [facility] Hemoglobin (Bld) [Mass/Vol] 12.9 g/dL [facility] Lymphocytes (Bld) [#/Vol] 1.60 10*3/uL X10 [facility] Lymphocytes/100 WBC (Bld) 33.9 % 20 - 55 % [facility] MCH (RBC) [Entitic mass] 29.1 pg 26 - 35 PG [employer] MCHC (RBC) [Mass/Vol] 34.5 g/dL [facility] MCV (RBC) [Entitic vol] 84.2 fL [facility] Monocytes (Bld) [#/Vol] 0.4 10*3/uL X10 [employer] Monocytes/100 WBC (Bld) 9.2 % 0 - 10 % [facility] Neutrophils (Bld) [#/Vol] 2.6 10*3/uL [employer] Neutrophils/100 WBC (Bld) 55.8 % 37 - 75 % [employer] Platelet mean volume (Bld) [Entitic vol] 6.7 fL Low [employer] Platelets (Bld) [#/Vol] 210 10*3/uL [employer] RBC (Bld) [#/Vol] 4.43 10*6/uL [employer] WBC (Bld) [#/Vol] 4.7 10*3/uL [employer] CT HEAD WITHOUT CONTRASTon 0 08-31-2018 CT BRAIN WITHOUT CONTRAST HISTORY: Dizziness, lightheaded. COMPARISON: None TECHNIQUE: CT examination of the head without IV contrast was performed. Dose reduction techniques were achieved by using automated exposure control and/or adjustment of mA and/or kV according to patient size and/or use of iterative reconstruction technique. FINDINGS: The brain parenchyma is of normal attenuation. The ventricular and cisternal spaces are within normal limits for the patient's age. There is no evidence for intracranial hemorrhage, mass effect, or hydrocephalus. No extraaxial collection or midline shift is identified. The visualized portions of the orbits and sinuses are intact. [employer] User, Interfaces - 08/31/2018 11:[address] BRAIN WITHOUT CONTRAST HISTORY: Dizziness, lightheaded. COMPARISON: None TECHNIQUE: CT examination of the head without IV contrast was performed. Dose reduction techniques were achieved by using automated exposure control and/or adjustment of mA and/or kV according to patient size and/or use of iterative reconstruction technique. FINDINGS: The brain parenchyma is of normal attenuation. The ventricular and cisternal spaces are within normal limits for the patient's age. There is no evidence for intracranial hemorrhage, mass effect, or hydrocephalus. No extraaxial collection or midline shift is identified. The visualized portions of the orbits and sinuses are intact. IMPRESSION IMPRESSION: Normal CT of the brain. [facility] IMPRESSION: Normal C T of the brain. [employer] MAGNESIUMon 08-31-2018 Magnesium [Mass/Vol] 1.9 mg/dL [facility] Otheron 08-31-2018 Interpretation and review of laboratory results Abnormal [employer] TOXICOLOGY DRUG SCREEN, URIN Irvin 08-31-2018 Amphetamine (U) [Mass/Vol] Negative NEGATIVE NG/ML [facility] Comment on above: <500 ng/ml [facility] Barbiturates Screen Ql (U) Negative NEGATIVE NG/ML [facility] Comment on above: <200 ng/ml [facility] Benzodiazepines Ql (U) Negative NEGAT THEA NG/ML [facility] Comment on above: <150 ng/ml [facility] Benzoylecgonine Ql (U) Negative NEGAT THEA NG/ML [facility] Comment on above: <150 ng/ml [facility] Buprenorphine Ql (U) Negative NEGATIV E NG/ML [facility] Comment on above: <10 ng/ml [facility] Cannabinoids Screen Ql (U) Negative NEGATIVE NG/ML [facility] Comment on above: <50 ng/ml [facility] Methadone Screen Ql (U) Negative NEGA TIVE NG/ML [facility] Comment on above: <200 ng/ml [facility] Methamphetamine (U) [Mass/Vol] Negative NEGATIVE NG/ML [facility] Comment on above: <500 ng/ml [facility] Opiates Screen Ql (U) Negative NEGATI VE NG/ML [facility] Comment on above: <100 ng/ml [facility] Oxycodone Ql (U) Negative NEGATIVE NG/ML [facility] Comment on above: <100 ng/ml [facility] Phencyclidine Screen method >25 ng/mL Ql (U) Negative NEGATIVE NG/ML [facility] Comment on above: <25 ng/ml [facility] Propoxyphene + Norpropoxyphene Screen Ql (U) Negative NEGATIVE NG/ML [facility] Comment on above: <300 ng/ml [facility] Tricyclic antidepressants Screen Ql (U) Negative NEGATIVE NG/ML [facility] Comment on above: <300 ng/ml [facility] Otheron 08-22-2018 Interpretation and review of laboratory results Abnormal [employer] T4 FREEon 08-22-2018 T4 free mass conc 1.01 ng/dL [facility] THYROID PROFILEon 08-22-2018 T3RU 20 % Low 24 - 39 % [employer] T4 free index Calculated mass conc 1.7 [facility] Comment on above: [facility] T4 mass conc 8.5 ug/dL 4.5 - 12 ug/dL [facility] TSHon 08-22-2018 Thyrotropin Qn 27.800 m[IU]/L High [facility] ABO/RH(D) TYPINGon 9 ABO and Rh group Nom (Bld ) Positive [facility] BETA HCG, QUANT, BLOODon HCG.beta subunit Qn 744175.00 m[IU]/mL MIU/ML [employer] Comment on above: [facility] INTERPRETIVE RANGES: NON FEMALE 0-6 MIU/ML MALE ADULT 0-2 MIU/ML 0-1 WEEK 6-50 MIU/ML 1-2 WEEKS 40-300 MIU/ML 2-3 WEEKS 100-1,000 MIU/ML 3-4 WEEKS 500-6,000 MIU/ML 1-2 MONTHS 5,000-200,000 MIU/ML 2-3 MONTHS 10,000-100,000 MIU/ML 2ND TRIMESTER 3,000-50,000 MIU/ML 3RD TRIMESTER 1,000-50,000 MIU/ML If an hCG level is inconsistent with, or unsupported by, clinical evidence, results should be confirmed by an alternate hCG method. This method may include the qualitative hCG testing of urine. CBC, EDIF, PLATELETon 2018 ABSOLUTE BASOPHIL COUNT 0.0 X10 [facility] Basophils/100 WBC (Bld) 0.2 % 0 - 2 % [facility] Differential cell count method Nom (Bld) AUTO DIFF % [employer] Eosinophils #/vol (Bld) 0.00 10*3/uL X10 [employer] Eosinophils/100 WBC (Bld) 0.5 % 0 - 11 % [employer] Erythrocyte distribution width Ratio (RBC) 12.9 % 11.5 - 14.5 % [employer] Hematocrit Volume Fraction (Bld) 38.8 % 36 - 48 % [employer] Hemoglobin mass conc (Bld) 13.5 g/dL [employer] Lymphocytes #/vol (Bld) 1.50 10*3/uL X10 [facility] Lymphocytes/100 WBC (Bld) 29.7 % 20 - 55 % [facility] MCH Entitic mass (RBC) 29.4 pg 26 - 35 PG [facility] MCHC mass conc (RBC) 34.8 g/dL [facility] MCV Entitic volume (RBC) 84.5 fL [facility] Monocytes #/vol (Bld) 0.4 10*3/uL X10 [facility] Monocytes/100 WBC (Bld) 7.5 % 0 - 10 % [facility] Neutrophils #/vol (Bld) 3.2 10*3/uL [facility] Neutrophils/100 WBC (Bld) 62.1 % 37 - 75 % [facility] Platelet mean volume Entitic volume (Bld) 6.8 fL Low [facility] Platelets #/vol (Bld) 185 10*3/uL [facility] RBC #/vol (Bld) 4.60 10*6/uL [facility] WBC #/vol (Bld) 5.2 10*3/uL [facility] 7 (LYTES,BUN,CREA,GLUC) on 08-12-2018 Chloride molar conc 106 mmol/L [facility] Comment on above: Please note: Triglyc eride levels of 600mg/dL or higher may positively bias chloride results by approximately 2.1 mmol CO2 molar conc 22 mmol/L [facility] Creatinine mass conc 0.5 mg/dL Low [facility] GFR/1.73 sq M predicted among blacks MDRD vol rate/area (S/P/Bld) mL/min/{1.73_m2} ml/min/1.73s q.m [facility] GFR/1.73 sq M predicted among non-blacks MDRD vol rate/area (S/P/Bld) mL/min/{1.73_m2} ml/min/1.73s q.m [facility] GFR/1.73 sq M predicted among non-blacks MDRD vol rate/area (S/P/Bld) Average GFR for 20-29 years old = 116. [facility] Comment on above: Chronic Kidney disea se, GFR = <60. Kidney failure, GFR = <15. The GFR estimate is not adjusted for extreme body surface area or acute process, nor has it been validated for women or ethnic groups other than and . Glucose fasting mass conc 108 mg/dL High [facility] Comment on above: NORMAL <100 mg/dL PREDIABETES 101-126 mg/dL DIABETES 126 mg/dL or higher Potassium molar conc 3.6 mmol/L [facility] Sodium molar conc 139 mmol/L [facility] Urea nitrogen mass conc 9 mg/dL [facility] Otheron 08-12-2018 Interpretation and review of laboratory results Abnormal [facility] Interpretation and review of laboratory results Abnormal [facility] URINALYSIS, MACROon 08-13-19 19 Bilirubin Ql (U) Negative NEGATIVE [facility] Clarity Nom (U) CLEAR CLEAR [facility] Color Nom (U) YELLOW YELLOW [facility] Glucose Test strip mass conc (U) Negative NEGATIVE mg/dl [facility] Hemoglobin Ql (U) Negative NEGATIVE [facility] Ketones mass conc (U) 15 mg/dl Abnormal NEGATIVE [facility] Leukocyte esterase Test strip Ql (U) TRACE Abnormal NEGATIVE [facility] Nitrite Ql (U) Negative NEGATIVE [facility] pH (U) 7.0 [pH] [facility] Protein Ql (U) Negative NEGATIVE mg/dl [facility] Specific gravity Relative Density (U) 1.010 [facility] H Urobilinogen mass conc (U) 0.2 mg/dl 0.2 - 1 mg/dl [facility] URINE MICROSCOPICon 08-13-19 19 Bacteria LM.HPF #/area (Urine sed) TRACE Abnormal NEGATIVE [facility] Casts LM.LPF #/area (Urine sed) NONE NONE /LPF [facility] Crystals LM Nom (Urine sed) NONE NONE [facility] Epithelial cells LM Ql (Urine sed) 10 TO 20 /HPF [facility] Mucus Ql (Urine sed) Negative NEGATIVE [facility] RBC LM.HPF #/area (Urine sed) Negative NEGATIVE /HPF [facility] Urine sediment comments LM Hung (Urine sed) POSSIBLY CONTAMINATED SPECIMEN, CULTURE MUST BE ORDERED SEPARATELY IF DEEMED NECESSARY. [facility] WBC LM.HPF #/area (Urine sed) 1 TO 5 NEGATIVE /HPF [facility] Vital Signs Date Time Vital Sign Value Performing Clinician Brielle arechiga 02-03-2022 14:15-0400 Body height 160 cm Diamond Garay MD Work Phone: [facility] 02-03-2022 14:15-0400 Body mass index (BMI) [Ratio] 26.85 kg/m2 Diamond Garay MD Work Phone: [facility] 02-03-2022 14:15-0400 Body weight 68.77 kg Diamond Garay MD Work Phone: [facility] 02-03-2022 14:15-0400 Diastolic blood pressure 70 mm[Hg] Diamond Garay MD Work Phone: [facility] 02-03-2022 14:15-0400 Heart rate 94 /min Diamond Garay MD Work Phone: [facility] 02-03-2022 14:15-0400 Respiratory rate 16 /min Diamond Garay MD Work Phone: [facility] 02-03-2022 14:15-0400 SaO2% (BldA) [Mass fraction] 99 % Diamond Garay MD Work Phone: [facility] 02-03-2022 14:15-0400 Systolic blood pressure 107 mm[Hg] Diamond Garay MD Work Phone: [facility] 01-29-2022 14:41-0400 Diastolic blood pressure 88 mm[Hg] Arlene Titus MD Work Phone: [facility] 01-29-2022 14:41-0400 Heart rate 86 /min Arlene Titus MD Work Phone: [facility] 01-29-2022 14:41-0400 Respiratory rate 18 /min Arlene Titus MD Work Phone: [facility] 01-29-2022 14:41-0400 SaO2% (BldA) [Mass fraction] 100 % Arlene Titus MD Work Phone: [facility] 01-29-2022 14:41-0400 Systolic blood pressure 140 mm[Hg] Arlene Titus MD Work Phone: [facility] 01-29-2022 13:01-0400 Body temperature 97.2 [degF] Arlene Titus MD Work Phone: [facility] 12-09-2021 14:23-0400 Body height 160 cm Marylin Brink MD Work Phone: [facility] 12-09-2021 14:23-0400 Body mass index (BMI) [Ratio] 24.8 kg/m2 Marylin Brink MD Work Phone: [facility] 12-09-2021 14:23-0400 Body weight 63.5 kg Marylin Brink MD Work Phone: [facility] 12-09-2021 14:23-0400 Respiratory rate 16 /min Marylin Brink MD Work Phone: [facility] 12-03-2021 09:57-0400 Body height 160 cm Marylin Brink MD Work Phone: [facility] 12-03-2021 09:57-0400 Body mass index (BMI) [Ratio] 24.8 kg/m2 Marylin Brink MD Work Phone: [facility] 12-03-2021 09:57-0400 Body weight 63.5 kg Marylin Brink MD Work Phone: [facility] 12-03-2021 09:57-0400 Respiratory rate 16 /min Marylin Brink MD Work Phone: [facility] 12-01-2021 12:27-0400 Body height 160 cm Marylin Brink MD Work Phone: [facility] 12-01-2021 12:27-0400 Body mass index (BMI) [Ratio] 24.8 kg/m2 Marylin Brink MD Work Phone: [facility] 12-01-2021 12:27-0400 Body weight 63.5 kg Marylin Brink MD Work Phone: [facility] 12-01-2021 12:27-0400 Respiratory rate 16 /min Marylin Brink MD Work Phone: [facility] 11-12-2021 10:13-0400 Body height 160 cm Marylin Brink MD Work Phone: [facility] 11-12-2021 10:13-0400 Body mass index (BMI) [Ratio] 24.8 kg/m2 Marylin Brink MD Work Phone: [facility] 11-12-2021 10:13-0400 Body weight 63.5 kg Marylin Brink MD Work Phone: [facility] 11-12-2021 10:13-0400 Respiratory rate 16 /min Marylin Brink MD Work Phone: [facility] 10-11-2021 13:40-0400 Body height 160 cm Antoine Sow MD Work Phone: [facility] 10-11-2021 13:39-0400 Body temperature 97.9 [degF] Antoine Sow MD Work Phone: [facility] 10-11-2021 13:39-0400 Diastolic blood pressure 84 mm[Hg] Antoine Sow MD Work Phone: [facility] 10-11-2021 13:39-0400 Heart rate 96 /min Antoine Sow MD Work Phone: [facility] 10-11-2021 13:39-0400 Respiratory rate 17 /min Antoine Sow MD Work Phone: [facility] 10-11-2021 13:39-0400 SaO2% (BldA) [Mass fraction] 97 % Antoine Sow MD Work Phone: [facility] 10-11-2021 13:39-0400 Systolic blood pressure 134 mm[Hg] Antoine Sow MD Work Phone: [facility] 2022 12:59-0400 Body mass index (BMI) [Ratio] 23.56 kg/m2 Elias Dubon PA-C Work Phone: [facility] 10-11-2021 12:59-0400 Body temperature 97.2 [degF] Elias Dubon PA-C Work Phone: [facility] 10-11-2021 12:59-0400 Body weight 60.33 kg Elias Dubon PA-C Work Phone: [facility] 10-11-2021 12:59-0400 Diastolic blood pressure 81 mm[Hg] Elias Dubon PA-C Work Phone: [facility] 10-11-2021 12:59-0400 Heart rate 87 /min Elias Dubon PA-C Work Phone: [facility] 10-11-2021 12:59-0400 Respiratory rate 18 /min Elias Dubon PA-C Work Phone: [facility] 10-11-2021 12:59-0400 SaO2% (BldA) [Mass fraction] 98 % Elias Dubon PA-C Work Phone: [facility] 10-11-2021 12:59-0400 Systolic blood pressure 115 mm[Hg] Elias Dubon PA-C Work Phone: [facility] 08-20-2021 14:02-0400 Body height 160 cm Lisbetharlette Conleyold PA-C Work Phone: [facility] 08-20-2021 14:02-0400 Body mass index (BMI) [Ratio] 23.61 kg/m2 [employer] PA-C Work Phone: [facility] 08-20-2021 14:02-0400 Body temperature 98.49 [degF] [employer] PA-C Work Phone: [facility] 08-20-2021 14:02-0400 Body weight 60.46 kg [employer] PA-C Work Phone: [facility] 08-20-2021 14:02-0400 Diastolic blood pressure 77 mm[Hg] Lisbeth Conleyold PA-C Work Phone: [facility] 08-20-2021 14:02-0400 Heart rate 82 /min Lisbeth Louis PA-C Work Phone: [facility] 08-20-2021 14:02-0400 Respiratory rate 17 /min Lisbeth Arnold PA-C Work Phone: [facility] 08-20-2021 14:02-0400 SaO2% (BldA) [Mass fraction] 96 % Lisbetharlette Louis PA-C Work Phone: [facility] 08-20-2021 14:02-0400 Systolic blood pressure 113 mm[Hg] Lisbeth Louis PA-C Work Phone: [facility] 05-30-2021 17:00-0500 Diastolic blood pressure 72 mm[Hg] Zelalem Pay DO Work Phone: [facility] 05-30-2021 17:00-0500 Heart rate 84 /min Zelalem Pay DO Work Phone: [facility] 05-30-2021 17:00-0500 SaO2% (BldA) [Mass fraction] 100 % Zelalem Pay DO Work Phone: [facility] 05-30-2021 17:00-0500 Systolic blood pressure 113 mm[Hg] Zelalem Pay DO Work Phone: [facility] 05-30-2021 16:08-0500 Body height 160 cm Zelalem Pay DO Work Phone: [facility] 05-30-2021 16:07-0500 Body temperature 98.4 [degF] Zelalem Pay DO Work Phone: [facility] 05-30-2021 16:07-0500 Respiratory rate 17 /min Zelalem Pay DO Work Phone: [facility] 04-01-2021 08:39-0500 Body height 160 cm Mary Ellen YUEN Work Phone: [employer] [facility] 04-01-2021 08:39-0500 Body mass index (BMI) [Ratio] 23.7 kg/m2 Mary Ellen Clinker SPECIAL PROCEDURES TECH-ELECT[employer]IC DATA INTERCHANGE SPECIALIST Work Phone: [facility] 04-01-2021 08:39-0500 Body weight 60.69 kg Mary Ellen Clinker SPECIAL PROCEDURES TECH-ELECTRONIC DATA INTERCHANGE SPECIALIST Work Phone: [facility] [employer] [facility] 04-01-2021 08:39-0500 Diastolic blood pressure 93 mm[Hg] Mary Ellen Clinker SPECIAL PROCEDURES TECH-ELECTRONIC DATA INTERCHANGE SPECIALIST Work Phone: [facility] [employer] [facility] 04-01-2021 08:39-0500 Heart rate 84 /min Mary Ellen Clinker SPECIAL PROCEDURES TECH-ELECTRONIC DATA INTERCHANGE SPECIALIST Work Phone: [facility] 04-01-2021 08:39-0500 Respiratory rate 18 /min Mary Ellen Clinker SPECIAL PROCEDURES TECH-ELECTRONIC DATA INTERCHANGE SPECIALIST Work Phone: [facility] [employer] [facility] 04-01-2021 08:39-0500 Systolic blood pressure 132 mm[Hg] Mary Ellen Clinker SPECIAL PROCEDURES TECH-ELECTRONIC DATA INTERCHANGE SPECIALIST Work Phone: [employer] [facility] 02-21-2021 13:13-0400 Body temperature 98.6 [degF] Tabbitha Adela ELECTRONIC DATA INTERCHANGE SPECIALIST Work Phone: [facility] 02-21-2021 13:13-0400 Heart rate 97 /min Tabbitha Adela ELECTRONIC DATA INTERCHANGE SPECIALIST Work Phone: [facility] 02-21-2021 13:13-0400 SaO2% (BldA) [Mass fraction] 96 % Tabbitha Adela ELECTRONIC DATA INTERCHANGE SPECIALIST Work Phone: [facility] 01-09-2021 14:45-0400 Diastolic blood pressure 76 mm[Hg] Jaxon Weston MD Work Phone: [facility] 01-09-2021 14:45-0400 Heart rate 68 /min Jaxon Weston MD Work Phone: [facility] 01-09-2021 14:45-0400 Respiratory rate 17 /min Jaxon Weston MD Work Phone: [facility] 01-09-2021 14:45-0400 SaO2% (BldA) [Mass fraction] 99 % Jaxon Weston MD Work Phone: [facility] 01-09-2021 14:45-0400 Systolic blood pressure 115 mm[Hg] Jaxon Weston MD Work Phone: [phone] [place] [address] 01-09-2021 12:48-0400 Body temperature 98.1 [degF] Jaxon Weston MD Work Phone: [facility] 01-05-2021 10:43-0400 Body temperature 98.49 [degF] Tabbitha Adela ELECTRONIC DATA INTERCHANGE SPECIALIST Work Phone: [facility] 01-05-2021 10:43-0400 Body weight 53.07 kg Tabbitha Adela ELECTRONIC DATA INTERCHANGE SPECIALIST Work Phone: [facility] 01-05-2021 10:43-0400 Diastolic blood pressure 75 mm[Hg] Tabbitha Adela ELECTRONIC DATA INTERCHANGE SPECIALIST Work Phone: [facility] 01-05-2021 10:43-0400 Heart rate 77 /min Tabbitha Adela ELECTRONIC DATA INTERCHANGE SPECIALIST Work Phone: [facility] 01-05-2021 10:43-0400 Respiratory rate 16 /min Tabbitha Adela ELECTRONIC DATA INTERCHANGE SPECIALIST Work Phone: [facility] 01-05-2021 10:43-0400 SaO2% (BldA) [Mass fraction] 99 % Tabbitha Adela ELECTRONIC DATA INTERCHANGE SPECIALIST Work Phone: [facility] 01-05-2021 10:43-0400 Systolic blood pressure 108 mm[Hg] Tabbitha Adeal ELECTRONIC DATA INTERCHANGE SPECIALIST Work Phone: [facility] 05-12-2020 21:32-0500 Body Temperature 97.5 [degF] [facility] 05-12-2020 21:32-0500 BP Diastolic 85 mm[Hg] [facility] 05-12-2020 21:32-0500 BP Systolic 120 mm[Hg] [facility] 05-12-2020 21:32-0500 Pulse (Heart Rate) 82 /min [facility] 05-12-2020 21:32-0500 Pulse Oximetry 97 % [facility] 05-12-2020 21:32-0500 Respiratory Rate 16 /min [facility] 01-12-2020 22:16-0400 BMI (Body Mass Index) 21.26 kg/m2 [facility] 01-12-2020 22:16-0400 Body weight 54.43 kg [facility] 01-12-2020 22:15-0400 Body Temperature 97.2 [degF] [facility] 01-12-2020 22:15-0400 BP Diastolic 97 mm[Hg] [facility] 01-12-2020 22:15-0400 BP Systolic 138 mm[Hg] [facility] 01-12-2020 22:15-0400 Pulse (Heart Rate) 97 /min [facility] 01-12-2020 22:15-0400 Pulse Oximetry 94 % [facility] 01-12-2020 22:15-0400 Respiratory Rate 18 /min [facility] 01-10-2020 14:21-0400 Body Temperature 98.6 [degF] [facility] 12-26-2019 11:40-0400 BP Diastolic 62 mm[Hg] [facility] 12-26-2019 11:40-0400 BP Systolic 111 mm[Hg] [facility] 12-26-2019 11:40-0400 Pulse (Heart Rate) 71 /min [facility] 12-26-2019 11:40-0400 Pulse Oximetry 100 % [facility] 12-26-2019 11:40-0400 Respiratory Rate 16 /min [facility] 12-26-2019 10:46-0400 Body Temperature 98.1 [degF] [facility] 12-26-2019 08:21-0400 Height 160 cm Bruno Thompson [facility] 12-15-2019 15:29-0400 Body Temperature 98.2 [degF] [facility] 12-15-2019 15:29-0400 BP Diastolic 86 mm[Hg] [facility] 12-15-2019 15:29-0400 BP Systolic 131 mm[Hg] [facility] 12-15-2019 15:29-0400 Height 160 cm [facility] 12-15-2019 15:29-0400 Pulse (Heart Rate) 90 /min [facility] 12-15-2019 15:29-0400 Pulse Oximetry 98 % [facility] 12-15-2019 15:29-0400 Respiratory Rate 16 /min [facility] 10-16-2019 17:39-0400 Body Temperature 99.1 [degF] [facility] 10-16-2019 17:39-0400 BP Diastolic 73 mm[Hg] [facility] 10-16-2019 17:39-0400 BP Systolic 116 mm[Hg] [facility] 10-16-2019 17:39-0400 Pulse (Heart Rate) 87 /min [facility] 10-16-2019 17:39-0400 Pulse Oximetry 96 % [facility] 10-16-2019 17:39-0400 Respiratory Rate 16 /min [facility] 10-04-2019 22:23-0400 BMI (Body Mass Index) 21.26 kg/m2 [facility] 10-04-2019 22:23-0400 Body weight 54.43 kg [facility] 10-04-2019 22:21-0400 Body Temperature 98.71 [degF] [facility] 10-04-2019 22:21-0400 BP Diastolic 76 mm[Hg] [facility] 10-04-2019 22:21-0400 BP Systolic 114 mm[Hg] [facility] 10-04-2019 22:21-0400 Pulse (Heart Rate) 88 /min [facility] 10-04-2019 22:21-0400 Pulse Oximetry 97 % [facility] 10-04-2019 22:21-0400 Respiratory Rate 15 /min [facility] 08-14-2019 10:15-0400 Height 160 cm [facility] 08-14-2019 10:14-0400 Body Temperature 98.1 [degF] [facility] 08-14-2019 10:14-0400 BP Diastolic 70 mm[Hg] [facility] 08-14-2019 10:14-0400 BP Systolic 129 mm[Hg] [facility] 08-14-2019 10:14-0400 Pulse (Heart Rate) 82 /min [facility] 08-14-2019 10:14-0400 Pulse Oximetry 98 % [facility] 08-14-2019 10:14-0400 Respiratory Rate 16 /min [facility] 05-31-2019 17:22-[address] [facility] 05-31-2019 17:21-0500 Body Temperature 98.29 [degF] [facility] 05-31-2019 17:21-0500 BP Diastolic 74 mm[Hg] [facility] 05-31-2019 17:21-0500 BP Systolic 119 mm[Hg] [facility] 05-31-2019 17:21-0500 Pulse (Heart Rate) 92 /min [facility] 05-31-2019 17:21-0500 Pulse Oximetry 98 % [facility] 05-31-2019 17:21-0500 Respiratory Rate 16 /min [facility] 05-13-2019 13:26-0500 Height 160 cm [facility] 05-13-2019 13:23-0500 Body Temperature 98.49 [degF] [facility] 05-13-2019 13:23-0500 BP Diastolic 70 mm[Hg] [facility] 05-13-2019 13:23-0500 BP Systolic 120 mm[Hg] [facility] 05-13-2019 13:23-0500 Pulse (Heart Rate) 96 /min [facility] 05-13-2019 13:23-0500 Pulse Oximetry 98 % [facility] 05-13-2019 13:23-0500 Respiratory Rate 14 /min [facility] 09-16-2018 14:06-0400 BP Diastolic 80 mm[Hg] [facility] 09-16-2018 14:06-0400 BP Systolic 120 mm[Hg] [facility] 09-16-2018 14:06-0400 Pulse (Heart Rate) 90 /min [facility] 09-16-2018 14:06-0400 Respiratory Rate 16 /min [facility] 09-16-2018 13:30-0400 Height 160 cm [facility] 09-16-2018 13:28-0400 Body Temperature 98.01 [degF] [facility] 09-16-2018 13:28-0400 Pulse Oximetry 98 % [facility] 08-31-2018 23:41-0400 BP Diastolic 67 mm[Hg] [facility] 08-31-2018 23:41-0400 BP Systolic 108 mm[Hg] [facility] 08-31-2018 23:41-0400 Pulse (Heart Rate) 88 /min [facility] 08-31-2018 23:41-0400 Pulse Oximetry 97 % [facility] 08-31-2018 23:41-0400 Respiratory Rate 16 /min [facility] 08-31-2018 22:35-0400 Body weight 56.7 kg [facility] 08-31-2018 22:34-0400 Body Temperature 98.2 [degF] [facility] 08-12-2018 16:00-0400 BP Diastolic 69 mm[Hg] [facility] 08-12-2018 16:00-0400 BP Systolic 109 mm[Hg] [facility] 08-12-2018 16:00-0400 Pulse (Heart Rate) 90 /min [facility] 08-12-2018 16:00-0400 Pulse Oximetry 96 % [facility] 08-12-2018 16:00-0400 Respiratory Rate 18 /min [facility] 08-12-2018 14:27-0400 Body Temperature 98.29 [degF] [facility] Encounters Encounter Date Encounter Type Care Provider Facility Start: 11-01-2023 End: 11-01-2023 ambulatory [place] Not Available Start: 10-27-2023 End: 10-27-2023 ambulatory Tasha E Spasic [facility] Work Phone: Start: 10-27-2023 End: 10-27-2023 Departed Referred FURNITURE DUSTER-C Tasha Spasic Work Phone: [facility] Start: 09-01-2023 End: 09-01-2023 ambulatory Tasha E Spasic [facility] Work Phone: Start: 09-01-2023 End: 09-01-2023 Departed Referred FURNITURE DUSTER-C Tasha Spasic Work Phone: [facility] Start: 06-09-2023 End: 06-09-2023 ambulatory Tasha E Spasic Facility:[facility] Start: 06-09-2023 End: 06-09-2023 ambulatory Tasha E Spasic [facility] Work Phone: Start: 06-09-2023 End: 06-09-2023 Departed Referred FURNITURE DUSTER-C Tasha Spasic Work Phone: [facility] Start: 03-06-2023 ambulatory Services [facility] Facility:[facility] Start: 01-06-2023 End: 01-06-2023 Patient encounter procedure Services [facility] Work Phone: [facility] [place] Work Phone: Start: 01-06-2023 End: 01-06-2023 ambulatory Services [facility] Work Phone: [facility] Work Phone: Start: 09-24-2022 ambulatory Jose Luisjuan josé ERAZO Facility: [facility] Start: 02-15-2022 ambulatory [facility] Start: 02-12-2022 ambulatory [facility] Start: 02-03-2022 ambulatory [facility] Start: 02-03-2022 End: 02-03-2022 Office outpatient visit 15 minutes Diamond Garay MD Work Phone: [facility] Comment on above: Facet arthropathy (P rimary Dx); Myofascial pain; Chronic pain syndrome; Sacroiliitis; Right hip pain Start: 01-29-2022 ambulatory [facility] Start: 01-29-2022 End: 01-29-2022 Patient encounter procedure Arlene Titus MD Work Phone: [facility] Comment on above: Lumbar spondylosis ( Primary Dx) Start: 01-29-2022 End: 01-29-2022 Subsequent hospital visit by physician Arlene Titus MD Work Phone: [facility] Comment on above: Arrived Start: 01-24-2022 End: 01-24-2022 Emergency department patient visit [facility] Start: 01-23-2022 ambulatory [facility] Start: 01-23-2022 End: 01-23-2022 Subsequent hospital visit by physician Tasha Mehta MD Work Phone: [facility] Start: 01-05-2022 [facility] Start: 12-28-[address] [facility] Start: 12-28-2021 End: 12-28-2021 Subsequent hospital visit by physician Marylin Brink MD Work Phone: [facility] Comment on above: Arrived Start: 12-09-[address] 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 Start: 12-04-2021 End: 12-04-2021 Subsequent hospital visit by physician Marylin Brink MD Work Phone: [facility] Comment on above: Arrived Start: 12-03-2021 [facility] Start: 12-03-2021 [facility] Start: 12-03-2021 End: 12-03-2021 Office outpatient visit 25 minutes Marylin Brink MD Work Phone: [facility] Comment on above: Closed fracture of s acrum and coccyx, initial encounter (Primary Dx) Start: 12-01-2021 [facility] Start: 12-01-2021 [facility] Start: 12-01-2021 End: 12-01-2021 Office outpatient visit 25 minutes Marylin Brink MD Work Phone: [facility] Comment on above: Closed fracture of s acrum and coccyx, initial encounter Start: 11-27-2021 [facility] Start: 11-25-2021 [facility] Start: 11-25-2021 End: 11-25-2021 Subsequent hospital visit by physician Marylin Brink MD Work Phone: [facility] Comment on above: Arrived Start: 11-25-2021 End: 11-25-2021 Office outpatient visit 25 minutes Marylin Brink MD Work Phone: [facility] Comment on above: Closed fracture of s acrum and coccyx, initial encounter (Primary Dx) Start: 11-16-[address] [facility] Start: 11-12-[address] [facility] Start: 11-12-2021 End: 11-12-2021 Office outpatient new 45 minutes Marylin Brink MD Work Phone: [facility] Comment on above: Acute pain of right shoulder (Primary Dx); Closed fracture of sacrum and coccyx, initial encounter; Smoker Start: 10-28-2021 End: 10-28-2021 Emergency department patient visit [facility] Start: 10-20-2021 ambulatory [facility] Start: 10-14-2021 ambulatory [facility] Start: 10-14-2021 End: 10-14-2021 Subsequent hospital visit by physician Tasha Mehta MD Work Phone: [facility] Comment on above: Arrived Start: 10-11-2021 End: 10-11-2021 Emergency department patient visit [facility] Start: 10-11-2021 End: 10-11-2021 ambulatory [facility] Start: 10-11-2021 End: 10-11-2021 Emergency department patient visit Antoine Sow MD Work Phone: [facility] Start: 10-11-2021 End: 10-11-2021 Patient encounter procedure Elias Dubon PA-C Work Phone: [facility] Comment on above: Acute midline low ba ck pain without sciatica (Primary Dx); Left lower quadrant abdominal pain; Right hip pain Start: 08-24-2021 End: 08-24-2021 ambulatory [facility] Start: 08-22-2021 Orders Only Lisbeth lynne PA-C Work Phone: [facility] Comment on above: Acute cystitis witho ut hematuria (Primary Dx) Start: 08-20-2021 End: 08-20-2021 ambulatory [facility] Start: 08-20-2021 End: 08-20-2021 Office outpatient new 45 minutes Lisbeth Louis PA-C Work Phone: [facility] Comment on above: Dysuria (Primary Dx) Start: 07-23-2021 ambulatory [facility] Start: 05-30-2021 End: 05-30-2021 Emergency department patient visit [facility] Start: 05-30-2021 End: 05-30-2021 Emergency department patient visit Zelalem Diana Hampton DO Work Phone: [facility] Start: 04-22-2021 End: 04-22-2021 ambulatory JAKOB SCHILLING [facility] Start: 04-01-2021 End: 04-01-2021 Office outpatient visit 15 minutes Mary Ellen Valles SPECIAL PROCEDURES TECH-ELECTRONIC DATA INTERCHANGE SPECIALIST Work Phone: [facility] Comment on above: Medication monitorin g encounter (Primary Dx); Lumbar radiculopathy; Chronic pain syndrome Start: 02-21-2021 End: 02-21-2021 ambulatory [facility] Start: 02-21-2021 End: 02-21-2021 Office outpatient visit 15 minutes Chio Blanco ELECTRONIC DATA INTERCHANGE SPECIALIST Work Phone: [facility] Comment on above: Viral illness (Prima ry Dx); Exposure to 2019 novel coronavirus Start: 01-09-2021 End: 01-09-2021 Emergency department patient visit Jaxon Weston MD Work Phone: [facility] Start: 01-05-2021 End: 01-05-2021 ambulatory [facility] Start: 01-05-2021 End: 01-05-2021 Office outpatient new 30 minutes Chio Blanco ELECTRONIC DATA INTERCHANGE SPECIALIST Work Phone: [facility] Comment on above: Ingrown toenail of l eft foot with infection (Primary Dx); Flank pain Start: 07-18-2020 End: 07-18-2020 Subsequent hospital visit by physician Tasha Mehta Work Phone: [facility] Comment on above: Arrived Start: 05-12-2020 End: 05-12-2020 Emergency department patient visit Rubin Troncoso Work Phone: [facility] Start: 01-12-2020 End: 01-12-2020 Emergency department patient visit Eliselamine Fisher Magdiel Work Phone: [facility] Start: 01-10-2020 End: 01-10-2020 Postop follow up visit related to original px Bruno Thompson Work Phone: [facility] Comment on above: Encounter for postop erative care (Primary Dx) Start: 12-26-2019 End: 12-26-2019 Subsequent hospital visit by physician Bruno Thompson Work Phone: [facility] Comment on above: Soft tissue mass Start: 12-15-2019 End: 12-15-2019 Emergency department patient visit Uli Bejarano Work Phone: [facility] Start: 12-13-2019 End: 12-13-2019 Office consultation new/estab patient 60 min Bruno Thompson Work Phone: [facility] Comment on above: Soft tissue mass (Pr imary Dx); Preoperative clearance Start: 10-16-2019 End: 10-16-2019 Emergency department patient visit Rubin Troncoso Work Phone: [facility] Start: 10-04-2019 End: 10-04-2019 Emergency department patient visit Kash Escalante Work Phone: [facility] Start: 08-14-2019 End: 08-14-2019 Emergency department patient visit Rubin Troncoso Work Phone: [employer] Start: 05-31-2019 End: 05-31-2019 Emergency department patient visit Micheline Veloz Work Phone: [facility] Start: 05-13-2019 End: 05-13-2019 Emergency department patient visit Rubin Troncoso Work Phone: [facility] Start: 02-05-2019 End: 02-05-2019 Outside Orders Historical Provider [facility] Start: 10-03-2018 End: 10-03-2018 Outside Orders Historical Provider [facility] Start: 09-16-2018 End: 09-16-2018 Emergency department patient visit Rubin Troncoso Work Phone: [facility] Start: 08-31-2018 End: 09-01-2018 Emergency department patient visit Micheline Veloz Work Phone: [employer] Start: 08-22-2018 End: 08-22-2018 Patient encounter procedure Historical Provider [facility] Start: 08-12-2018 End: 08-12-2018 Emergency department patient visit Adan Mueller Work Phone: [facility] Procedures Date Procedure Procedure Detail Performing Clinician Start: 01-29-2022 SPINAL INJECTION Arlene Titus MD Work Phone: Start: 12-09-2021 Arthrocentesis aspir&/inj small jt/bursa w/o us Marylin Brink MD Work Phone: Start: 12-04-2021 Mri pelvis w/o contrast material Marylin Brink MD Work Phone: Start: 11-25-2021 Injection single/saddle mechanic trigger point 1/2 muscles Marylin Brink MD Work Phone: Start: 10-14-2021 Radex hip unilateral with pelvis 2-3 views Tasha Mehta MD Work Phone: Start: 10-14-2021 Mri spinal canal lumbar w/o contrast material Tasha Mehta MD Work Phone: Start: 10-11-2021 Urinalysis, reagent strip without microscopy Antoine Sow MD Work Phone: Start: 10-11-2021 End: 10-11-2021 Radex sacrum & coccyx minimum 2 views Antoine Sow MD Work Phone: Start: 08-20-2021 Urnls dip stick/tablet rgnt auto w/o microscopy Lisbeth Louis PA-C Work Phone: Start: 05-30-2021 End: 05-30-2021 Albumin serum plasma/whole blood Zelalem Hampton DO Work Phone: Start: 05-30-2021 Complete blood count with white cell differential, automated Zelalem Hampton DO Work Phone: Start: 05-30-2021 Heterophile antibodies screen Zelalem Hampton DO Work Phone: Start: 05-30-2021 Urinalysis microscopic only Zelalem Diana Kaden y DO Work Phone: Start: 05-30-2021 Urinalysis, reagent strip without microscopy Zelalem Hampton DO Work Phone: Start: 02-21-2021 SARS-CoV-2 (COVID-19) RdRp gene [Presence] in Respiratory specimen by SHIRA with probe detection Chio Blanco ELECTRONIC DATA INTERCHANGE SPECIALIST Work Phone: Start: 01-09-2021 Radex spine lumbosacral minimum 4 views Jaxon Weston MD Work Phone: Start: 01-09-2021 Gonadotropin chorionic qualitative Jaxon Weston MD Work Phone: Start: 01-09-2021 Urinalysis, reagent strip without microscopy Jaxon Weston MD Work Phone: Start: 01-05-2021 Urine test visual color cmprsn meths Chio Blanco ELECTRONIC DATA INTERCHANGE SPECIALIST Work Phone: Start: 07-18-2020 MRI of brain and brain stem Tasha Mehta Work Phone: Start: 05-12-2020 X-ray of right foot Rubin Troncoso Work Phone: Start: 12-26-2019 Choriogonadotropin ( test) [Presence] in Urine Med Amezcua Work Phone: Start: 02-05-2019 ORDERS (OUTSIDE) Historical Provider Start: 10-03-2018 LABS (OUTSIDE) Historical Provider Start: 09-01-2018 CT of entire head Micheline Veloz Work Phone: Start: 09-01-2018 Assay of magnesium Micheline Veloz Work Phone: Start: 09-01-2018 Basic metabolic panel calcium total Micheline Veloz Work Phone: Start: 09-01-2018 CBC, EDIF, PLATELET Micheline Veloz Work Phone: Start: 09-01-2018 TOXICOLOGY DRUG SCREEN, URINE Micheline Veloz Work Phone: Start: 08-22-2018 Assay of free thyroxine Carlos Valentine Work Phone: Start: 08-22-2018 Assay of thyroid stimulating hormone tsh Carlos Valentine Work Phone: Start: 08-22-2018 THYROID PROFILE Carlos Valentine Work Phone: Start: 08-22-2018 LABS (OUTSIDE) Historical Provider Start: 08-12-2018 Narrative [Interpretation] Study observation.general transvaginal 1st trimester US Adan Mueller Work Phone: Start: 08-12-2018 Blood typing serologic abo Adan hearn Work Phone: Start: 08-12-2018 CBC, EDIF, PLATELET Adan Mueller Work Phone: Start: 08-12-2018 Choriogonadotropin ( test) [Presence] in Serum or Plasma Adan Mueller Work Phone: Start: 08-12-2018 Creatinine blood Adan Mueller Work Phone: Start: 08-12-2018 Urinalysis microscopic only Adan Fisher Pedro rothman Work Phone: Start: 08-12-2018 URINALYSIS, MACRO Adan Mueller Work Phone: Plan of Treatment Date Care Activity Detail Author Start: 06-09-2023 [facility] Start: 04-21-2022 End: 04-21-2022 Patient encounter procedure 04/21/2022 Office Visit Anesthesiology Pain Mgt Arlene Titus MD [address] [place] [address] [facility] Start: 03-03-2022 End: 03-03-2022 Patient encounter procedure 03/03/2022 Office Visit Orthopaedics Marylin Brink MD [address] [place] [address], [place] [address] [facility] Start: 02-18-2022 End: 02-18-2022 Patient encounter procedure [facility] Start: 02-17-2022 End: 02-17-2022 Patient encounter procedure 02/17/2022 Office Visit Anesthesiology Pain Mgt Arlene Titus MD [address] [place] [address] [facility] Start: 02-12-2022 End: 02-12-2022 Patient encounter procedure 02/12/2022 Office Visit Anesthesiology Pain Mgt Arlene Titus MD [address] [place] [address] [facility] Start: 02-04-2022 End: 02-04-2022 Patient encounter procedure [facility] Start: 02-03-2022 End: 02-03-2023 MR Hip - right WO contrast MRI HIP RIGHT WITHOUT CONTRAST Imaging Routine Facet arthropathy Sacroiliitis Expected: 02/03/2022, Expires: 02/03/2023 [facility] Comment on above: Expected: 02/03/2022 , Expires: 02/03/2023 Start: 02-03-2022 End: 02-03-2022 Patient encounter procedure 02/03/2022 Office Visit Anesthesiology Pain Mgt Diamond Garay MD [address] [place] [address] [facility] Start: 01-29-2022 End: 01-29-2023 Fluoroscopy guided nasogastric tube procedure [facility] Comment on above: Expected: 01/29/2022 , Expires: 01/29/2023 1 Occurrences starti ng 01/29/2022 until 01/29/2022 Start: 01-29-2022 End: 01-29-2022 Patient encounter procedure 01/29/2022 Office Visit Anesthesiology Pain Mgt Arlene Titus MD [address] [place] [address], [place] [address] [facility] Procedural Pain Management Start: 01-27-2022 End: 01-27-2022 Patient encounter procedure 01/27/2022 Office Visit HAND WOODWORKING SANDER Iraida Hudson, [address] [place] [address] [facility] HAND WOODWORKING SANDER [facility] Start: 01-21-2022 Influenza vaccination [facility] Start: 01-11-2022 End: 01-11-2022 Patient encounter procedure 01/11/2022 Office Visit Orthopaedics Marylin Brink MD [address] [place] [address], [place] [address] [facility] Orthopedics & Sports Medicine Start: 01-05-2022 End: 01-05-2022 Patient encounter procedure 01/05/2022 Office Visit Anesthesiology Pain Mgt Arlene Titus MD [address] [place] [address], [place] [address] [facility] Start: 12-28-2021 End: 12-28-2021 Patient encounter procedure 12/28/2021 Office Visit Orthopaedics Marylin Brink MD [address] [facility] [address] [facility] [place] [facility] Start: 12-10-2021 End: 12-10-2021 ambulatory 12/10/2021 Rehab Services Visit Physical Therapy Marylin Brink MD [address] [place] [address] Ana Valentine PTA [facility] [place] Start: 12-09-2021 End: 12-09-2021 Patient encounter procedure 12/09/2021 Office Visit Marylin Guerra MD [address] [facility] [address] [facility] [place] [facility] Start: 12-08-2021 End: 12-08-2021 ambulatory 12/08/2021 Rehab Services Visit Physical Therapy Marylin Brink MD [address] [place] [address] Alicia Quinn PTA [facility] [place] Start: 12-07-2021 End: 12-07-2021 Patient encounter procedure 12/07/2021 Office Visit Orthopaedics Marylin Brink MD [address] [place] [address] [facility] [place] [facility] Start: 12-04-2021 End: 12-04-2021 Patient encounter procedure 12/04/2021 Appointment Magnetic Resonance Imaging Marylin Brink MD [address] [place] [address] [facility] [place] [facility] Start: 12-03-2021 End: 12-03-2021 ambulatory 12/03/2021 Rehab Services Visit Physical Therapy Marylin Brink MD [address] [place] [address] Alicia Quinn PTA [facility] [place] Start: 12-03-2021 End: 12-03-2021 Patient encounter procedure 12/03/2021 Office Visit Orthopaedics Marylin Brink MD [address] [place] [address] [facility] [place] [facility] Start: 11-27-2021 End: 11-27-2021 ambulatory 11/27/2021 Rehab Services Visit Physical Therapy Marylin Brink MD [address] [place] [address] Maile Day PT [facility] [place] Start: 10-29-2021 End: 10-29-2021 Patient encounter procedure 10/29/2021 Office Visit General Surgery Bruno Thompson, DO [address] [place] [address] [facility] General Surgery Start: 10-23-2021 Thyroid stimulating hormone measurement TSH [facility] Start: 06-13-2021 TSH Qn TSH [facility] Start: 06-03-2021 End: 06-03-2021 Patient encounter procedure 06/03/2021 Office Visit Anesthesiology Pain Mgt Mary Ellen Valles, SPECIAL PROCEDURES TECH-ELECTRONIC DATA INTERCHANGE SPECIALIST [address] [place] [address] [facility] Start: 04-22-2021 [facility] Start: 04-01-2021 End: 04-02-2021 DRUG SCREEN MED COMPLIANCE I DRUG SCREEN MED COMPLIANCE I Lab Routine Medication monitoring encounter Expected: 04/01/2021, Expires: 04/02/2021 [facility] Comment on above: Expected: 04/01/2021 , Expires: 04/02/2021 Start: 01-21-2021 Influenza vaccination [facility] Start: 10-16-2020 TSH Qn TSH [facility] Start: 06-14-2020 TSH Qn TSH [facility] Start: 05-04-2020 TSH Qn TSH [facility] Start: 02-06-2020 TSH Qn TSH [facility] Start: 01-22-2020 Influenza vaccination [facility] Start: 01-10-2020 End: 01-10-2020 Office Visit 01/10/2020 Office Visit General Surgery Bruno Thompson, DO [address] [place] [address] [phone] [facility] General Surgery Start: 12-26-2019 Hospital Encounter 12/26/2019 Hospital Encounter Multispecialty Bruno Thompson, DO [address] [place] [address] [phone] Soft tissue mass [facility] Comment on above: Soft tissue mass Start: 12-14-2019 End: 12-13-2020 NOVEL CORONAVIRUS- NASOPHARYNGEAL NOVEL CORONAVIRUS- NASOPHARYNGEAL Microbiology STAT Preoperative clearance Expected: 12/14/2019, Expires: 12/13/2020 [facility] Comment on above: Expected: 12/14/2019 , Expires: 12/13/2020 Start: 12-14-2019 Procedure Pass 12/14/2019 Pro cedure Pass Multispecialty [facility] Start: 10-04-2019 TSH Qn TSH [facility] Start: 08-23-2019 Thyrotropin Qn TSH [facility] Start: 01-21-2019 Influenza vaccination [facility] Start: 01-21-2018 Influenza vaccination INFLUENZA VACC INE (#1) [facility] Start: 2017 Screening for malign ant neoplasm of cervix [facility] Start: 2015 Third diphtheria, tetanus and acellular pertussis (DTaP) vaccination TDAP (ADULT) [facility] Start: 2014 Hepatitis C screening Hepatitis C [facility] Start: 2014 Tetanus vaccination TETANUS [facility] Start: 2012 Screening for Chlamy lai trachomatis CHLAMYDIA SCREEN [facility] Start: 2011 HIV screening [facility] Start: 2011 Vaccination for gary n papillomavirus HPV VACCINE ADOL (1 - Female 3-dose series) [facility] Start: 2009 HIV screening HIV SCREENING DISCUSSI ON [facility] Start: 2008 COVID-19 Vaccine (1) COVID-19 Vaccin e (1) [facility] Start: 2008 Depression screening using PHQ-9 (Patient Health Questionnaire 9) score [facility] Start: 2007 Vaccination for gary n papillomavirus [facility] Start: 2002 PNEUMOCOCCAL VACCINE SERIES (1 - PCV) PNEUMOCOCCAL VACCINE SERIES (1 - PCV) [facility] Start: 2001 COVID-19 Vaccine (#1) COVID-19 Vacci ne (#1) [facility] Start: 2001 COVID-19 VACCINE (1) COVID-19 VACCIN E (1) [facility] Start: 1999 History and physical examination, annual for health maintenance Wellness Visit [facility] Start: 1996 COVID-19 VACCINE (#1) COVID-19 VACCI NE (#1) [facility] Start: 1996 GONORRHEA SCREEN GONORRHEA SCREEN [facility] Start: 1996 Hepatitis C antibody , confirmatory test HEPATITIS C VIRUS SCREENING [facility] Start: 1996 Hepatitis C screening HEPATITI S C VIRUS SCREENING [facility] Start: 1996 Screening for Chlamy lai trachomatis [facility] Start: 1996 Screening for malign ant neoplasm of cervix Pap Smear [facility] Start: 1996 [facility] Bacteria identified in Unspecified specimen by Aerobe culture Urine Aerobic Culture Microbiology Routine Dysuria 08/20/2021 2:41 PM EDT [facility] End: 08-20-2022 Chlamydia trachomatis rRNA assay Chlamydia/GC/Trichomonas Amplified RNA Microbiology Routine Dysuria 1 Occurrences starting 08/20/2021 until 08/20/2022 [facility] Work Phone: Comment on above: 1 Occurrences starti ng 08/20/2021 until 08/20/2022 Chlamydia trachomati s rRNA assay Chlamydia/GC/Trichomonas Amplified RNA Microbiology Routine Dysuria 08/20/2021 2:32 PM EDT [facility] Narrative [Interpretation] Study observation.general transvaginal 1st trimester US US OB TRANSVAGINAL/CERVICAL LENGTH Imaging STAT 08/12/2018 3:43 PM EDT [facility] Hepatitis A virus antibody, IgM type [facility] Hepatitis B core antibody measurement, IgM type [facility] Hepatitis B virus surface Ag [Presence] in Serum or Plasma by Immunoassay [facility] Hepatitis C virus Ig G Ab [Presence] in Serum or Plasma by Immunoassay [facility] Hepatitis C virus RN A [log units/volume] (viral load) in Serum or Plasma by SHIRA with probe detection [facility] Hepatitis C virus RN A [Units/volume] (viral load) in Serum or Plasma by SHIRA with probe detection [facility] End: 12-04-2021 MR Lumbar spine WO contrast [facility] Comment on above: 1 Occurrences starti ng 12/04/2021 until 12/04/2021 Neisseria gonorrhoea e nucleic acid detection Chlamydia/Gonorrhoeae Amplified RNA Microbiology Routine Dysuria 08/20/2021 2:32 PM EDT [facility] SURGICAL PATHOLOGY REQUEST SURGICAL PATHOLOGY REQUEST Surg Path Routine Soft tissue mass Release Upon Ordering for 1 Occurrences starting 12/26/2019 [facility] Comment on above: Release Upon Orderin g for 1 Occurrences starting 12/26/2019 T-UPTAKE,T4,FTI,TSH T-UPTAKE,T4, FTI,TSH Lab Routine 10/03/2018 7:39 PM EDT [facility] Trichomonas vaginali s Amplified RNA Trichomonas vaginalis Amplified RNA Microbiology Routine Dysuria 08/20/2021 2:32 PM EDT [facility] TSH W/FT4 REFLEX TSH W/FT4 REFLE X Lab Routine 10/03/2018 7:39 PM EDT [facility] Fem[facility] - right Views XR FEMUR RIGHT Imaging Routine Closed fracture of sacrum and coccyx, initial encounter 11/25/2021 11:29 AM EDT [facility] XR Femur - right Views XR FEMUR RIGHT Imaging Routine Fall, initial encounter 12/28/2021 11:17 AM EDT [employer] [facility] XR Lumbar spine View s W right bending and W left bending XR LUMBAR SPINE BENDING ONLY 4+ VW Imaging Routine Closed fracture of sacrum and coccyx, initial encounter 11/25/2021 11:27 AM EDT [employer] End: 01-23-2022 XR Lumbar spine Views W right bending and W left bending XR SPINE LUMBAR W BENDING Imaging Routine Accidental fall on or from stairs or steps, initial encounter 1 Occurrences starting 01/23/2022 until 01/23/2022 [employer] Work Phone: Comment on above: 1 Occurrences starti ng 01/23/2022 until 01/23/2022 XR Pelvis AP XR PELVIS AP ONL Y Imaging Routine Closed fracture of sacrum and coccyx, initial encounter 11/25/2021 11:28 AM EDT [facility] XR Pelvis AP XR PELVIS AP ONL Y Imaging Routine Fall, initial encounter 12/28/2021 11:17 AM EDT [employer] XR Sacrum and Coccyx 2 Views XR SACRUM/COCCYX 2+ VW Imaging Routine Closed fracture of sacrum and coccyx, initial encounter 11/25/2021 11:28 AM EDT [employer] End: 01-23-2022 XR Sacrum and Coccyx 2 Views XR SACRUM/COCCYX 2+ VW Imaging Routine Accidental fall on or from stairs or steps, initial encounter 1 Occurrences starting 01/23/2022 until 01/23/2022 [employer] Work Phone: Comment on above: 1 Occurrences starti ng 01/23/2022 until 01/23/2022 Payers Date Payer Category Payer Self-pay [id number] 2019 Medicaid MEDICAID MEDICAI D xxxxxxxxxxxx 2019-Present [id number] .[id number] 2019 Medicaid [id number] [id number] .[id number] 2019 Medicaid [id number]. 1.13.385.2.7.3 .[id number] 2018 Medicare [id number] 1.2.840.555734.1.13.172.2.7.3 .[id number] 2018 Medicare [id number]. 1.13.385.2.7.3 .661252.315 2018 Medicare [id number] 2018 Unknown xxxxxxxxxxx 1.2.840.754986.1.13.172.2.7.3 .304733.315 2014 Medicaid [id number] 1996 Unknown [id number] 2.16.840.1.321054.3.579.2.903 1996 Unknown [id number] 2.16.840.1.261279.3.579.2.903 1996 Unknown [id number] 2.16.840.1.451665.3.579.2.903 1996 Unknown [id number] 2.16.840.1.891178.3.579.2.903 1996 Unknown [id number] 2.16.840.1.519223.3.579.2.903 1996 Unknown [id number] 2.16.840.1.993750.3.579.2.903 1996 Unknown [id number] 2.16.840.1.840071.3.579.2.903 1996 Unknown [id number] 2.16.840.1.091633.3.579.2.983 1996 Unknown [id number] 2.16.840.1.818145.3.579.2.983 1996 Unknown [id number] 2.16.840.1.840773.3.579.2.983 1996 Unknown [id number] 2.16.840.1.211014.3.579.2.983 1996 Unknown [id number] 2.16.840.1.952635.3.579.2.983 1996 Unknown [id number] 2.16.840.1.141920.3.579.2.983 1996 Unknown [id number] 2.16.840.1.526344.3.579.2.983 1996 Unknown [id number] 2.16.840.1.921423.3.579.2.983 1996 Unknown [id number] 2.16.840.1.178584.3.579.2.983 1996 Unknown [id number] 2.16.840.1.750395.3.579.2.98 1996 Unknown [id number] 2.16.840.1.485125.3.579.2.98 1996 Unknown [id number] 2.16.840.1.762516.3.579.2.98 1996 Unknown [id number] 2.16.840.1.095476.3.579.2.98 1996 Unknown [id number] 2.16.840.1.976502.3.579.2.98 1996 Unknown [id number] 2.16.840.1.092342.3.579.2.98 1996 Unknown [id number] 2.16.840.1.898318.3.579.2.983 1996 Unknown [id number] 2.16.840.1.818598.3.579.2.98 1996 Unknown [id number] 2.16.840.1.362031.3.579.2.983 1996 Unknown [id number] 2.16.840.1.464892.3.579.2.98 1996 Unknown [id number] 2.16.840.1.421465.3.579.2.983 1996 Unknown [id number] 2.16.840.1.356832.3.579.2.983 1996 Unknown [id number] 2.16.840.1.631425.3.579.2.983 1996 Unknown [id number] 2.16.840.1.746203.3.579.2.983 1996 Unknown [id number] 2.16.840.1.904181.3.579.2.983 1996 Unknown [id number] 2.16.840.1.398660.3.579.2.983 1996 Unknown [id number] 2.16.840.1.742205.3.579.2.983 1996 Unknown [id number] 2.16.840.1.728267.3.579.2.983 1996 Unknown [id number] 2.16.840.1.175140.3.579.2.983 1996 Unknown [id number] 2.16.840.1.008010.3.579.2.983 1996 Unknown [id number] 2.16.840.1.798956.3.579.2.983 1996 Unknown [id number] 2.16.840.1.381518.3.579.2.983 1996 Unknown [id number] 2.16.840.1.269910.3.579.2.983 1996 Unknown [id number] 2.16.840.1.506273.3.579.2.983 1996 Unknown [id number] 2.16.840.1.097620.3.579.2.983 1996 Unknown [id number] 2.16.840.1.620538.3.579.2.983 1996 Unknown [id number] 2.16.840.1.293959.3.579.2.983 1996 Unknown [id number] 2.16.840.1.724469.3.579.2.125 9 1972 Unknown [id number] 2.16.840.1.922483.3.579.2.727 Medicaid [employer] [id number] Unknown [id number] 2.16.840.1.697847.3.579.2.531 Unknown [id number] 2.16.840.1.174028.3.579.2.531 Unknown [id number] 2.16.840.1.717477.3.579.2.531 Unknown [id number] 2.16.840.1.269460.3.579.2.531 Unknown [id number] 2.16.840.1.487967.3.579.2.531 Unknown [id number] 2.16.840.1.017011.3.579.2.531 Social History Date Type Detail Facility Start: 08-12-2018 End: 01-05-2021 Tobacco smoking status [facility] Never smoker [facility] Start: 1996 Sex Assigned At Not on file A [facility] Start: 06-30-2018 [facility] Start: 05-13-2019 End: 12-11-2021 Alcohol intake Ex-drinker (finding) [facility] Start: 03-22-2019 End: 10-04-2019 Tobacco smoking status [facility] Former smoker [facility] Start: 08-14-2019 Tobacco Comment quit 2018 [facility] Start: 10-01-2021 End: 01-24-2022 Exposure to SARS-CoV-2 (event) Not sure [facility] Start: 10-16-2019 End: 05-30-2021 Tobacco use and exposure Never used [facility] Start: 09-16-2018 Alcohol intake Not Currently [facility] Start: 01-05-2021 End: 10-11-2021 Alcohol intake Lifetime non-drinker (finding) [facility] Start: 01-05-2021 History SDOH Alcohol Frequency 1 [facility] End: 05-23-2017 History of tobacco use Current smoker [facility] End: 05-23-2017 History of tobacco use Cigarette Smoker [facility] Start: 05-30-2021 End: 05-23-2017 Tobacco smoking status [facility] Light tobacco smoker [facility] Start: 05-30-2021 Tobacco Comment [facility] Start: 10-11-2021 Tobacco smoking stat us [facility] Occasional tobacco smoker [facility] Start: 10-11-2021 Cigarette pack-years [facility] Start: 1996 Sex Assigned At Female F [facility] Goals Date Patient Goal Desired Activity /State Comment on above: Formatting of this n ote might be different from the original. 11/27/21 Short Term Goals: 4 weeks Able to tolerate aquatic therapy well without any adverse effects with improvements in overall reduction in pain, centralization of symptoms, improved function per pt report (decreased difficulty with showering, dressing/shoes, sleeping, transfers, & walking with AD without a limp) & no falls. 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 Decrease pain of LB & R LE with centralization of symptoms <5/10 during ADLs/IADLs. Improve AROM of R LE to WNL/symmetrical to contralateral side & pain free. Demonstrate good TA contraction with sit to stand & transfers without increased pain, with use of UE as needed. Improve MMT strength of L LE grossly 4+ to 5/5 pain free & R hip grossly 4-/5 or better & R LE below the knee grossly 4+/5 or better & without an increase in pain. Improve gait without AD as allowed & able & including stairs reciprocally with handrail as tolerable & allowed, to get to/from bedroom to be able to sleep in bed & to/from shower & to enter/exit home safely. 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 Clinical Notes 01-05-2021 to 02-03-2022 Betty Aguero - 02/03/2022 2:00 PM Arturo Garay MD - 02/03/2022 2:00 PM EDTPatijeanna Titus MD - 01/29/2022 1:30 PM Rivera Titus MD - 01/29/2022 1:30 PM EDT Note Date & Type Note Facility 02-03-2022 History of Presen t illness Narrative HPI: Herminio Simon Presents for evaluation and treatment of right hip and right leg pain. Pain is described as Stabbing and Sharp and is rated 7/10. Pain is increased with going up and down stairs, standing and walking and is relieved by heating pad and hot bath. The patient admits to having numbness/tingling down right leg. She admits to having weakness in her right leg. The patient denies bowel/bladder incontinence. The patient responded with mild relief to the most recent procedure which was #1 Bilateral L4-5, and L5-S1 Facet Joint Block. Patient admits to having tobacco use, a pack a day. Also partakes in recreational marijuana. Audit-C Questionnaire 1. How often do you have a drink containing alcohol? (0) never 2. How many standard drinks containing alcohol do you have on a typical day? (0) 1 or 2 3. How often do you have six or more drinks on one occasion? (0) never *A score of 3 or more in women or 4 or more in men is a positive score that requires education. Current Outpatient Medications Medication Sig acetaminophen 500 MG tablet Take 1,000 mg by mouth every 6 hours as needed for Pain. busPIRone 10 MG tablet Take 10 mg by mouth 2 times daily. cyclobenzaprine 5 MG tablet Take 5 mg by mouth 2 times daily as needed. DULoxetine [address] Particles capsule DR Take 1 capsule by mouth daily. famotidine 40 MG tablet Take 1 tablet by mouth 2 times daily for 7 days. gabapentin 100 MG capsule TAKE 1-2 CAPSULES BY MOUTH 3 TIMES A DAY NEEDED ibuprofen 600 MG Tab tablet Take 600 mg by mouth Every 6 hours as needed. (Patient not taking: Reported on 01/29/2022) levothyroxine 100 MCG tablet Take 100 mcg by mouth daily. levothyroxine 100 MCG tablet Take 1 tablet by mouth daily. medroxyPROGESTERone acetate 150 MG/ML Suspension Prefilled Syringe inj syringe Inject intramuscularly every 90 Days. nabumetone 500 MG tablet Take 1 tablet by mouth 2 times daily. ondansetron 4 MG Tab Dispersible tablet Take 1 tablet by mouth every 4 hours as needed for Nausea. Place on tongue ondansetron 4 MG tablet Take 5 mg by mouth 3 times daily as needed. oxyCODONE-acetaminophen 5-325 MG per tablet 1 tablet as needed (Patient not taking: Reported on 01/29/2022) Rexulti 2 MG tablet Take 2 mg by mouth daily. sertraline 25 MG tablet Take 75 mg by mouth daily. varenicline 1 MG tablet TAKE 1 TABLET BY MOUTH TWICE A DAY (Patient not taking: Reported on 01/29/2022) Review of Systems: General: Denies fevers, chills, or night sweats Abdominal: Denies nausea, vomiting, diarrhea Respiratory: Denies cough, sputum production Genitourinary: Denies dysuria or frequency 02/03/2022 HPI: Herminio Simon Presents for evaluation and treatment of right hip and right leg pain. Pain is described as Stabbing and Sharp and is rated 7/10. Pain is increased with going up and down stairs, standing and walking and is relieved by heating pad and hot bath. The patient admits to having numbness/tingling down right leg. She admits to having weakness in her right leg. The patient denies bowel/bladder incontinence. The patient responded with mild relief to the most recent procedure which was #1 Bilateral L4-5, and L5-S1 Facet Joint Block. Patient admits to having tobacco use, a pack a day. Also partakes in recreational marijuana. Audit-C Questionnaire 1. How often do you have a drink containing alcohol? (0) never 2. How many standard drinks containing alcohol do you have on a typical day? (0) 1 or 2 3. How often do you have six or more drinks on one occasion? (0) never *A score of 3 or more in women or 4 or more in men is a positive score that requires education. Current Medications Current Outpatient Medications Medication Sig acetaminophen 500 MG tablet Take 1,000 mg by mouth every 6 hours as needed for Pain. busPIRone 10 MG tablet Take 10 mg by mouth 2 times daily. cyclobenzaprine 5 MG tablet Take 5 mg by mouth 2 times daily as needed. DULoxetine [address] Particles capsule DR Take 1 capsule by mouth daily. famotidine 40 MG tablet Take 1 tablet by mouth 2 times daily for 7 days. gabapentin 100 MG capsule TAKE 1-2 CAPSULES BY MOUTH 3 TIMES A DAY NEEDED ibuprofen 600 MG Tab tablet Take 600 mg by mouth Every 6 hours as needed. (Patient not taking: Reported on 01/29/2022) levothyroxine 100 MCG tablet Take 100 mcg by mouth daily. levothyroxine 100 MCG tablet Take 1 tablet by mouth daily. medroxyPROGESTERone acetate 150 MG/ML Suspension Prefilled Syringe inj syringe Inject intramuscularly every 90 Days. nabumetone 500 MG tablet Take 1 tablet by mouth 2 times daily. ondansetron 4 MG Tab Dispersible tablet Take 1 tablet by mouth every 4 hours as needed for Nausea. Place on tongue ondansetron 4 MG tablet Take 5 mg by mouth 3 times daily as needed. oxyCODONE-acetaminophen 5-325 MG per tablet 1 tablet as needed (Patient not taking: Reported on 01/29/2022) Rexulti 2 MG tablet Take 2 mg by mouth daily. sertraline 25 MG tablet Take 75 mg by mouth daily. varenicline 1 MG tablet TAKE 1 TABLET BY MOUTH TWICE A DAY (Patient not taking: Reported on 01/29/2022) Review of Systems: General: Denies fevers, chills, or night sweats Abdominal: Denies nausea, vomiting, diarrhea Respiratory: Denies cough, sputum production Genitourinary: Denies dysuria or frequency Current Outpatient Medications: acetaminophen 500 MG tablet, Take 1,000 mg by mouth every 6 hours as needed for Pain., Disp: , Rfl: busPIRone 10 MG tablet, Take 10 mg by mouth 2 times daily., Disp: , Rfl: cyclobenzaprine 5 MG tablet, Take 5 mg by mouth 2 times daily as needed., Disp: , Rfl: gabapentin 100 MG capsule, TAKE 1-2 CAPSULES BY MOUTH 3 TIMES A DAY NEEDED, Disp: , Rfl: levothyroxine 100 MCG tablet, Take 100 mcg by mouth daily. , Disp: , Rfl: levothyroxine 100 MCG tablet, Take 1 tablet by mouth daily., Disp: , Rfl: nabumetone 500 MG tablet, Take 1 tablet by mouth 2 times daily., Disp: 60 tablet, Rfl: 1 ondansetron 4 MG Tab Dispersible tablet, Take 1 tablet by mouth every 4 hours as needed for Nausea. Place on tongue, Disp: 30 tablet, Rfl: 0 ondansetron 4 MG tablet, Take 5 mg by mouth 3 times daily as needed., Disp: , Rfl: Rexulti 2 MG tablet, Take 2 mg by mouth daily., Disp: , Rfl: sertraline 25 MG tablet, Take 75 mg by mouth daily. , Disp: , Rfl: baclofen 10 MG tablet, Take 0.5 tablets by mouth 2 times daily as needed for Muscle spasms., Disp: 45 tablet, Rfl: 3 DULoxetine [address] Particles capsule DR, Take 1 capsule by mouth daily. (Patient not taking: Reported on 02/03/2022), Disp: 30 capsule, Rfl: 2 famotidine 40 MG tablet, Take 1 tablet by mouth 2 times daily for 7 days. (Patient not taking: Reported on 02/03/2022), Disp: 14 tablet, Rfl: 0 ibuprofen 600 MG Tab tablet, Take 600 mg by mouth Every 6 hours as needed. (Patient not taking: No sig reported), Disp: , Rfl: medroxyPROGESTERone acetate 150 MG/ML Suspension Prefilled Syringe inj syringe, Inject intramuscularly every 90 Days. (Patient not taking: Reported on 02/03/2022), Disp: , Rfl: oxyCODONE-acetaminophen 5-325 MG per tablet, 1 tablet as needed (Patient not taking: Reported on 01/29/2022), Disp: , Rfl: varenicline 1 MG tablet, TAKE 1 TABLET BY MOUTH TWICE A DAY (Patient not taking: No sig reported), Disp: 60 tablet, Rfl: 11 ROS Review of Systems Visit Vitals BP 107/70 Pulse 94 Resp 16 Ht 1.6 m (5' 3 ) Wt 68.8 kg (151 lb 9.6 oz) LMP (LMP Unknown) SpO2 99% BMI 26.85 kg/m Physical Exam Cardiovascular: Rate and Rhythm: Normal rate. Comments: +right sided Akiko's, + spasm right adductor sarah, + right side SI joint tenderness; +Gaeslen's maneuver, + Stephen's test, + pelvic rock test Pain with lumbar facet loading maneuver s (right L4-5, L5-S1), + myofascial spasms. Pulmonary: Effort: Pulmonary effort is normal. Breath sounds: Normal breath sounds. Neurological: General: No focal deficit present. ASSESSMENT/PLAN ICD-10-CM 1. Facet arthropathy M47.819 2. Myofascial pain M79.18 3. Chronic pain syndrome G89.4 4. Sacroiliitis M46.1 5. Right hip pain M25.551 Right SI joint Injection x2 Ordered. Urine Drug Screen 01/05/22 NNCP-hx suboxone (also noted as allergy) Stop Nabumetone. Ordered Baclofen 10 mg, take 0.5 tablet-1 tablet up to TID PRN Ordered right hip MRI to rule out labral tear Follow Up 1-2 weeks after each injection Orders Placed This Encounter MRI HIP RIGHT WITHOUT CONTRAST baclofen 10 MG tablet The patient is using their controlled substance medication appropriately to increase activity and functional capacity. There are no signs of addiction or diversion. There are no significant side effects reported. OARRS report was reviewed and no abnormalities were identified. documented in this encounter [facility] 02-03-2022 Instructions [facility] - 02/03/2022 2:00 PM EDT Images from the original note were not included. You are scheduled for a Right Sacroiliac Joint Injection (SIJI) Please bring a family member or friend to drive you home the day of your scheduled procedure. 2. Please be sure to eat breakfast the day of your procedure. 3. If you are a diabetic, please check your blood sugar the morning of your procedure. 4. Please take your prescribed medications the morning of your procedure, unless you have been instructed by this office to hold a medication. 5. No prescription refill requests will be honored on the day of a procedure. All prescription refills must be requested one week in advance. 6. If you become ill or require an antibiotic, please contact our office as soon as possible to reschedule your procedure. What to expect the day of the procedure: 1. Go directly to Outpatient Registration, located on the 1st floor in the main lobby of the hospital. Please allow approximately 2 hours total for your appointment. You are being asked to arrive 30 minutes before your procedure in order to complete all necessary preparations. 2. You will be brought to the pre-op area where your medical history and medications will be reviewed. 3. You will be transported to the procedure room where the staff will help position you for the injection. 4. The physician will then inject a local anesthetic at the beginning of your procedure. A small dose of an anti-inflammatory medication may be used depending on your procedure. A small amount of dye might also be used to confirm placement of the needle. 5. After the injection, you are transferred to the recovery area. The staff will check your vital signs and have you rate your pain. 6. Please keep a pain diary after your procedure. In many cases, this is important in determining your next step of treatment. Please call the office at [phone] if you have additional questions. Sacroiliac Joint Injection The sacroiliac joint is a large joint in your lower back and buttocks region. When the joint becomes painful, it can cause pain in its immediate region or it can refer pain into your groin, hip, buttock, or leg. A sacroiliac joint injection serves several purposes. First, by placing numbing medicine into the joint, the amount of immediate pain relief you experience will help confirm or deny the joint as a source of your pain. That is, if you obtain relief of your main pain while the joint is numb it means this joint is more than likely the source of pain. Furthermore, steroids may be injected into the joint to reduce inflammation, which on many occasions can provide long-term relief. How is the procedure performed? The area to be injected will be cleansed with an aseptic solution to prevent infection. The procedure is done under fluoroscopy (live x-ray guidance) to confirm needle placement and deliver the medication to the precise location. What should I expect and what should I do after the procedure? If the source of your pain is coming from these joints, you should have pain relief for a period of two to four hours after the injection. On occasion, you may feel numb or somewhat weak in your leg for a few hours following the procedure. This is due to the local anesthetic that was used during the procedure and should go away after a couple of hours. Sometimes your pain may get slightly worse as the local anesthetic wears off before the steroid becomes effective. You should try to reproduce your pain (do things that would normally increase your pain) immediately following the injection and for two hours thereafter. You will need to record how you feel for the first two hours and bring this with you to your follow up visit. The next day you should be able to resume your normal daily activities that you were doing prior to the procedure. What are the risks and side effects? With any procedure there can be risks, side effects and complications. These vary depending on where the procedure was done. Whenever the integrity of the skin is broken there is a risk for infection and soreness. There is also the potential for more numbness than expected depending on the spread of local anesthetic. Bleeding, headaches and nerve damage are also possible complications of the procedure. However, all the complications are extremely rare. documented in this encounter [facility] 01-29-2022 History and physi chelsea note HPI: This 26 y.o. female presents for treatment of chronic back Pain. Current Outpatient Medications: acetaminophen 500 MG tablet, Take 1,000 mg by mouth every 6 hours as needed for Pain., Disp: , Rfl: busPIRone 10 MG tablet, Take 10 mg by mouth 2 times daily., Disp: , Rfl: cyclobenzaprine 5 MG tablet, Take 5 mg by mouth 2 times daily as needed., Disp: , Rfl: gabapentin 100 MG capsule, TAKE 1-2 CAPSULES BY MOUTH 3 TIMES A DAY NEEDED, Disp: , Rfl: levothyroxine 100 MCG tablet, Take 100 mcg by mouth daily. , Disp: , Rfl: levothyroxine 100 MCG tablet, Take 1 tablet by mouth daily., Disp: , Rfl: medroxyPROGESTERone acetate 150 MG/ML Suspension Prefilled Syringe inj syringe, Inject intramuscularly every 90 Days., Disp: , Rfl: nabumetone 500 MG tablet, Take 1 tablet by mouth 2 times daily., Disp: 60 tablet, Rfl: 1 ondansetron 4 MG Tab Dispersible tablet, Take 1 tablet by mouth every 4 hours as needed for Nausea. Place on tongue, Disp: 30 tablet, Rfl: 0 ondansetron 4 MG tablet, Take 5 mg by mouth 3 times daily as needed., Disp: , Rfl: Rexulti 2 MG tablet, Take 2 mg by mouth daily., Disp: , Rfl: sertraline 25 MG tablet, Take 75 mg by mouth daily. , Disp: , Rfl: DULoxetine [address] Particles capsule DR, Take 1 capsule by mouth daily., Disp: 30 capsule, Rfl: 2 famotidine 40 MG tablet, Take 1 tablet by mouth 2 times daily for 7 days., Disp: 14 tablet, Rfl: 0 ibuprofen 600 MG Tab tablet, Take 600 mg by mouth Every 6 hours as needed. (Patient not taking: Reported on 01/29/2022), Disp: , Rfl: oxyCODONE-acetaminophen 5-325 MG per tablet, 1 tablet as needed (Patient not taking: Reported on 01/29/2022), Disp: , Rfl: varenicline 1 MG tablet, TAKE 1 TABLET BY MOUTH TWICE A DAY (Patient not taking: Reported on 01/29/2022), Disp: 60 tablet, Rfl: 11 Current Facility-Administered Medications: lidocaine (PF) 2 % 5 mL syringe, 5 mL, Other, Once (Outpt Clinic), Arlene Titus MD Past Medical History: Diagnosis Date Anxiety Hypothyroidism Migraine Panic attack PTSD (post-traumatic stress disorder) Past Surgical History: Procedure Laterality Date EXCISION HIDRADENITIS AXILLARY 12/26/2019 Surgeon: Bruno Thompson DO; Location: [facility] OR TREATMENT INDUCED W/ DILATION & EVACUATION 2013 THYROIDECTOMY No family history on file. Review of Systems: General: Denies fevers, chills, or night sweats Abdominal: Denies nausea, vomiting, diarrhea Respiratory: Denies cough, sputum production Genitourinary: Denies dysuria or frequency Vitals: 01/29/22 1301 BP: 128/84 Pulse: 82 Resp: 16 Temp: 97.2 F (36.2 C) Physical Examination: Vitals: 01/29/22 1301 BP: 128/84 Pulse: 82 Resp: 16 Temp: 97.2 F (36.2 C) Constitutional The patient is awake, alert, well developed, well nourished and well groomed. The patient is pleasant and cooperative. The patient is a good historian and is very helpful with the history and physical examination. Musculoskeletal The patient has moderate difficulty transitioning from sitting to standing. The patient has a(n) antalgic gait. The lumbar spine demonstrates a flexion biased curve. There is no deformity to the lumbar spine. There is no abnormality in muscle tone in the lumbar spine. There is limitation with range of motion in the lumbar spine. Extension, rotation, and lateral bending are moderate limited. bilateral lumbar paraspinal tenderness, AKIKO, thigh thrust, Gaenslen's, and Yury's positive bilaterally and SLR negative. . Lumbar facet loading positive bilaterally, tender to palpation over bilateral facet joints. Neurologic Cranial Nerves 2-12 are grossly intact. The deep tendon reflexes of the in bilateral lower extremities are symmetrical;. Plantar reflexes (Babinski): toes are downgoing. Cerebellar function is normal; Romberg's test is negative. The gait is abnormal. Sensory testing for pain (pinprick), light touch, and proprioception is intact in bilateral lower extremities. No ankle or wrist clonus present. Negative Mo's sign. Motor in bilateral lower extremities is 4-/5. Psychiatric The patient is oriented to person, place, and time. Speech is fluent and words are clear. Thought processes are coherent, insight is good. There are no obsessive, compulsive, phobic or delusional thoughts; there are no illusions or hallucinations. The patient's fund of knowledge: awareness of current events and past history is appropriate for age. The patient's higher cognitive functions are intact. The patient's mood is neutral and the affect appropriate; there are no loose associations. Assessment: ICD-10-CM 1. Lumbar spondylosis M47.816 Valium 5mg PO once given for anxiety pre-procedure Plan: Proceed with bilateral lumbar L4-5, L5-S1 facet block [facility] 01-29-2022 History and physi chelsea note HPI: This 26 y.o. female presents for treatment of chronic back Pain. Current Outpatient Medications: acetaminophen 500 MG tablet, Take 1,000 mg by mouth every 6 hours as needed for Pain., Disp: , Rfl: busPIRone 10 MG tablet, Take 10 mg by mouth 2 times daily., Disp: , Rfl: cyclobenzaprine 5 MG tablet, Take 5 mg by mouth 2 times daily as needed., Disp: , Rfl: gabapentin 100 MG capsule, TAKE 1-2 CAPSULES BY MOUTH 3 TIMES A DAY NEEDED, Disp: , Rfl: levothyroxine 100 MCG tablet, Take 100 mcg by mouth daily. , Disp: , Rfl: levothyroxine 100 MCG tablet, Take 1 tablet by mouth daily., Disp: , Rfl: medroxyPROGESTERone acetate 150 MG/ML Suspension Prefilled Syringe inj syringe, Inject intramuscularly every 90 Days., Disp: , Rfl: nabumetone 500 MG tablet, Take 1 tablet by mouth 2 times daily., Disp: 60 tablet, Rfl: 1 ondansetron 4 MG Tab Dispersible tablet, Take 1 tablet by mouth every 4 hours as needed for Nausea. Place on tongue, Disp: 30 tablet, Rfl: 0 ondansetron 4 MG tablet, Take 5 mg by mouth 3 times daily as needed., Disp: , Rfl: Rexulti 2 MG tablet, Take 2 mg by mouth daily., Disp: , Rfl: sertraline 25 MG tablet, Take 75 mg by mouth daily. , Disp: , Rfl: DULoxetine [address] Particles capsule DR, Take 1 capsule by mouth daily., Disp: 30 capsule, Rfl: 2 famotidine 40 MG tablet, Take 1 tablet by mouth 2 times daily for 7 days., Disp: 14 tablet, Rfl: 0 ibuprofen 600 MG Tab tablet, Take 600 mg by mouth Every 6 hours as needed. (Patient not taking: Reported on 01/29/2022), Disp: , Rfl: oxyCODONE-acetaminophen 5-325 MG per tablet, 1 tablet as needed (Patient not taking: Reported on 01/29/2022), Disp: , Rfl: varenicline 1 MG tablet, TAKE 1 TABLET BY MOUTH TWICE A DAY (Patient not taking: Reported on 01/29/2022), Disp: 60 tablet, Rfl: 11 Current Facility-Administered Medications: lidocaine (PF) 2 % 5 mL syringe, 5 mL, Other, Once (Outpt Clinic), Arlene Titus MD Past Medical History: Diagnosis Date Anxiety Hypothyroidism Migraine Panic attack PTSD (post-traumatic stress disorder) Past Surgical History: Procedure Laterality Date EXCISION HIDRADENITIS AXILLARY 12/26/2019 Surgeon: Bruno Thompson DO; Location: [facility] OR TREATMENT INDUCED W/ DILATION & EVACUATION 2014 THYROIDECTOMY No family history on file. Review of Systems: General: Denies fevers, chills, or night sweats Abdominal: Denies nausea, vomiting, diarrhea Respiratory: Denies cough, sputum production Genitourinary: Denies dysuria or frequency Vitals: 01/29/22 1301 BP: 128/84 Pulse: 82 Resp: 16 Temp: 97.2 F (36.2 C) Physical Examination: Vitals: 01/29/22 1301 BP: 128/84 Pulse: 82 Resp: 16 Temp: 97.2 F (36.2 C) Constitutional The patient is awake, alert, well developed, well nourished and well groomed. The patient is pleasant and cooperative. The patient is a good historian and is very helpful with the history and physical examination. Musculoskeletal The patient has moderate difficulty transitioning from sitting to standing. The patient has a(n) antalgic gait. The lumbar spine demonstrates a flexion biased curve. There is no deformity to the lumbar spine. There is no abnormality in muscle tone in the lumbar spine. There is limitation with range of motion in the lumbar spine. Extension, rotation, and lateral bending are moderate limited. bilateral lumbar paraspinal tenderness, AKIKO, thigh thrust, Gaenslen's, and Yury's positive bilaterally and SLR negative. . Lumbar facet loading positive bilaterally, tender to palpation over bilateral facet joints. Neurologic Cranial Nerves 2-12 are grossly intact. The deep tendon reflexes of the in bilateral lower extremities are symmetrical;. Plantar reflexes (Babinski): toes are downgoing. Cerebellar function is normal; Romberg's test is negative. The gait is abnormal. Sensory testing for pain (pinprick), light touch, and proprioception is intact in bilateral lower extremities. No ankle or wrist clonus present. Negative Mo's sign. Motor in bilateral lower extremities is 4-/5. Psychiatric The patient is oriented to person, place, and time. Speech is fluent and words are clear. Thought processes are coherent, insight is good. There are no obsessive, compulsive, phobic or delusional thoughts; there are no illusions or hallucinations. The patient's fund of knowledge: awareness of current events and past history is appropriate for age. The patient's higher cognitive functions are intact. The patient's mood is neutral and the affect appropriate; there are no loose associations. Assessment: ICD-10-CM 1. Lumbar spondylosis M47.816 Valium 5mg PO once given for anxiety pre-procedure Plan: Proceed with bilateral lumbar L4-5, L5-S1 facet block documented in this encounter [facility] 01-29-2022 History of Presen t illness Narrative SCRUB - JAIMEE Vasquez RT - RT Samanta BEHAVIOR THERAPIST - N/A SIGN WRITER LETTERER OR PAINTER - Marta Cates RN Physician - Dr. Titus Site cleansed with hibiclens. documented in this encounter [facility] 01-29-2022 Procedure note Associated Ord er(s): SPINAL INJECTION Procedure(s): SPINAL INJECTION Pre-Procedure Diagnose(s): Lumbar spondylosis Post-Procedure Diagnose(s): Lumbar spondylosis PROCEDURE: Bilateral L4-5, and L5-S1 Facet Joint Block under Fluoroscopic Guidance ATTENDING PHYSICIAN: Arlene Titus MD PREOPERATIVE DIAGNOSIS(ES): Lumbar Spondylosis POSTOPERATIVE DIAGNOSIS: SAME ANESTHESIA: Local COMPLICATIONS: The patient tolerated the procedure well with no complications. INDICATIONS FOR PROCEDURE: This 26 y.o. year old patient presents for bilateral low back pain. Pain is worsened with standing, sitting, and walking. The patient presents for bilateral lumbar facet block. CONSENT: The patient was given a verbal description of the intended procedure including the risks and benefits of the procedure. The patient was than able to provide written informed consent for the above procedure. UNIVERSAL PROTOCOL/ TIMEOUT: Preprocedure verification is complete- patient verified and consents confirmed. PROCEDURE DETAILS: The operator technician's and physician's hands were washed immediately prior to the procedure using a chlorhexidine soap or sanitized using ethyl alcohol hand microbiology lab analyst. Hat, mask, and sterile gloves were used for the entirety of the procedure. All other personnel in the room wore hat and masks, as well as appropriate personal protective equipment. Risks and benefits of the procedure were discussed in detail, and an informed consent was completed and signed by the patient and physician. A timeout was performed prior to the start of the procedure. The Physicians performing the procedure performed handwashing with alcohol based hand wash and used sterile gloves for the procedure. All personnel in the room wore masks. The patient was placed prone on a fluoroscopy table. The lumbar spine was prepped and draped in the usual sterile fashion using Hibiclens prep. A C-arm Fluoroscope was brought into the field and used to obtain an AP radiograph of the lumbar spine. The junction of the sacral ala and sacral superior articular process was identified. A 25 G 3.5 inch angulated quincke needle was advanced under intermittent fluoroscopic guidance to make osseous contact with the junction of the sacral ala and the superior articular process at L5-S1. The patient did not have any pain or paresthesia at this time. Then the C-arm was advanced superiorly and obliqued 1 degrees to the left at the L5 level to demonstrate the junction of the transverse process and the superior articular process. A 25 G 3.5 inch angulated quincke needle was advanced under intermittent fluoroscopic guidance to make osseous contact. The patient did not experience any pain or paresthesia at this time. The procedure was then repeated at the L4 levels. Then after all needles were in place a lateral radiograph was taken to check for proper placement of the needles. Any necessary adjustments to the needles was made under intermittent fluoroscopy. Then after negative aspiration for blood CSF or any other body fluid, 0.5 ml of 2% lidocaine was injected at each level. With needle placement at the junction of the transverse process and superior articular process at L4, L5, and the ipsilateral sacral ala the L4-5 facet, and the L5-S1 facet have been anesthetized. The procedure was then repeated in the exact same fashion on the contralateral side. The needles were then removed, the patient's back was cleansed, and band aid dressings were applied. Post Procedure Evaluation: Pre-procedure pain level: up to 9/10 Post-procedure pain level: 4/10 Amount of pain relief: ~60% Pain with provocative maneuvers: Improved, not quite 80% will provide pain diary to review at next office visit CONDITION: The patient was discharged home in good condition. PLAN :Follow-up at the next scheduled and earlier as needed. Note angulation above [facility] 01-29-2022 Procedure note Associated Ord er(s): SPINAL INJECTION Procedure(s): SPINAL INJECTION Pre-Procedure Diagnose(s): Lumbar spondylosis Post-Procedure Diagnose(s): Lumbar spondylosis PROCEDURE: Bilateral L4-5, and L5-S1 Facet Joint Block under Fluoroscopic Guidance ATTENDING PHYSICIAN: Arlene Titus MD PREOPERATIVE DIAGNOSIS(ES): Lumbar Spondylosis POSTOPERATIVE DIAGNOSIS: SAME ANESTHESIA: Local COMPLICATIONS: The patient tolerated the procedure well with no complications. INDICATIONS FOR PROCEDURE: This 26 y.o. year old patient presents for bilateral low back pain. Pain is worsened with standing, sitting, and walking. The patient presents for bilateral lumbar facet block. CONSENT: The patient was given a verbal description of the intended procedure including the risks and benefits of the procedure. The patient was than able to provide written informed consent for the above procedure. UNIVERSAL PROTOCOL/ TIMEOUT: Preprocedure verification is complete- patient verified and consents confirmed. PROCEDURE DETAILS: The operator technician's and physician's hands were washed immediately prior to the procedure using a chlorhexidine soap or sanitized using ethyl alcohol hand microbiology lab analyst. Hat, mask, and sterile gloves were used for the entirety of the procedure. All other personnel in the room wore hat and masks, as well as appropriate personal protective equipment. Risks and benefits of the procedure were discussed in detail, and an informed consent was completed and signed by the patient and physician. A timeout was performed prior to the start of the procedure. The Physicians performing the procedure performed handwashing with alcohol based hand wash and used sterile gloves for the procedure. All personnel in the room wore masks. The patient was placed prone on a fluoroscopy table. The lumbar spine was prepped and draped in the usual sterile fashion using Hibiclens prep. A C-arm Fluoroscope was brought into the field and used to obtain an AP radiograph of the lumbar spine. The junction of the sacral ala and sacral superior articular process was identified. A 25 G 3.5 inch angulated quincke needle was advanced under intermittent fluoroscopic guidance to make osseous contact with the junction of the sacral ala and the superior articular process at L5-S1. The patient did not have any pain or paresthesia at this time. Then the C-arm was advanced superiorly and obliqued 1 degrees to the left at the L5 level to demonstrate the junction of the transverse process and the superior articular process. A 25 G 3.5 inch angulated quincke needle was advanced under intermittent fluoroscopic guidance to make osseous contact. The patient did not experience any pain or paresthesia at this time. The procedure was then repeated at the L4 levels. Then after all needles were in place a lateral radiograph was taken to check for proper placement of the needles. Any necessary adjustments to the needles was made under intermittent fluoroscopy. Then after negative aspiration for blood CSF or any other body fluid, 0.5 ml of 2% lidocaine was injected at each level. With needle placement at the junction of the transverse process and superior articular process at L4, L5, and the ipsilateral sacral ala the L4-5 facet, and the L5-S1 facet have been anesthetized. The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 departm ent Note Pt asking for Zofran for increased nausea and Neurontin for increased pain. Dr Sow updated. Emergency Department Report [facility] Service Date:.10/11/21 PCP: Tasha Mehta Chief Complaint: Chief Complaint Patient presents with Fall Pt. Fell over dog and landed on tailbone, back and hit back of head. Denies LOC. Also complains of lower abd pain. Pain 11/29. ONEAL Simon is a 26 y.o. female presents to the ED with chief complaint of Low back pain. Patient states she fell yesterday after the dog pushed her and she tripped landing on her backside on a child's toy. She states she also hit the hardwood and hit the back of her head. She denies any loss of bowel or bladder control and she states she had tingling in her legs when this initially happened but that is resolved. She states she has had some nausea and cramping. She was initially seen at the urgent care but when they felt they were incapable of taking care of her they sent her to the emergency department for further evaluation. Patient remembers the entire event. She denies any chipped or lost teeth. She denies any chance of being . She denies any blood in the urine. She has not passed out. She denies any blurred vision or double vision. She denies any bruising. She states the pain is worse when she moves Review of Systems: Review of Systems Review of Systems Constitutional: Negative for fevers or chills Skin: Negative for rash, laceration HENT: Negative for sore throat earache or nosebleeds Eyes: Negative Cardiovascular: Negative for chest pain, palpitations Gastrointestinal: Positive for nausea. Negative for vomiting Respiratory: Negative for cough, wheeze, shortness of breath Genitourinary: Negative for dysuria, frequency, incontinence. Negative for hematuria Musculoskeletal: Positive for low back pain to the buttocks Neurological: Negative for foot drop, weakness. Negative for ataxia, loss of consciousness Past Medical History: Past Medical History: Diagnosis Date Anxiety Hypothyroidism Migraine Panic attack PTSD (post-traumatic stress disorder) Past Surgical History: Past Surgical History: Procedure Laterality Date EXCISION HIDRADENITIS AXILLARY 12/26/2019 Surgeon: Bruno Thompson DO; Location: [facility] OR TREATMENT INDUCED W/ DILATION & EVACUATION 2013 THYROIDECTOMY Allergies: Allergies Allergen Reactions Coconut Oil RASH Medications: Patient's Medications New Prescriptions ONDANSETRON 4 MG TAB DISPERSIBLE TABLET Take 1 tablet by mouth every 4 hours as needed for Nausea. Place on tongue TRAMADOL 50 MG TABLET Take 1 tablet by mouth every 6 hours as needed for Moderate Pain for up to 5 days. Previous Medications ACETAMINOPHEN 500 MG TABLET Take 1,000 mg by mouth every 6 hours as needed for Pain. CYCLOBENZAPRINE 10 MG TABLET Take 1 tablet by mouth 3 times daily as needed for Muscle spasms. DICLOFENAC SODIUM [address] Take 1 tablet by mouth 2 times daily with meals. DICYCLOMINE 20 MG TABLET Take 1 tablet by mouth 3 times daily as needed for Abdominal Spasms. DULOXETINE [address] PARTICLES CAPSULE DR Take 1 capsule by mouth daily. FAMOTIDINE 40 MG TABLET Take 1 tablet by mouth 2 times daily for 7 days. GABAPENTIN 100 MG CAPSULE TAKE 1-2 CAPSULES BY MOUTH 3 TIMES A DAY NEEDED IBUPROFEN 600 MG TAB TABLET Take 600 mg by mouth Every 6 hours as needed. LEVOTHYROXINE 100 MCG TABLET Take 100 mcg by mouth daily. MEDROXYPROGESTERONE ACETATE 150 MG/ML SUSPENSION PREFILLED SYRINGE INJ SYRINGE Inject intramuscularly every 90 Days. PROMETHAZINE 25 MG SUPPOSITORY SUPPOSITORY Insert 1 suppository rectally every 6 hours as needed for Nausea / Vomiting (Nausea/Vomiting). SERTRALINE 25 MG TABLET Take 75 mg by mouth daily. Modified Medications No medications on file Discontinued Medications ONDANSETRON (ZOFRAN ODT) 4 MG TAB DISPERSIBLE TABLET Take 1 tablet by mouth every 4 hours as needed for Nausea. ONDANSETRON (ZOFRAN ODT) 4 MG TAB DISPERSIBLE TABLET Take 1 tablet by mouth every 4 hours as needed for Nausea. Family History: History reviewed. No pertinent family history. Social History: Social History Socioeconomic History Marital status: Single Spouse name: Not on file Number of children: Not on file Years of education: Not on file Highest education level: Not on file Occupational History Not on file Tobacco Use Smoking status: Light Tobacco Smoker Types: Cigarettes Last attempt to quit: 2018 Years since quittin.3 Smokeless tobacco: Never Used Tobacco comment: Few Vaping Use Vaping Use: Never used Substance and Sexual Activity Alcohol use: Not Currently Drug use: Not Currently Comment: Been clean off narcotics for 2 months. Sexual activity: Not on file Comment: LMP 12/17/19 Other Topics Concern Not on file Social History Narrative Not on file Social Determinants of Health Financial Resource Strain: Not on file Food Insecurity: Not on file Transportation Needs: Not on file Physical Activity: Not on file Stress: Not on file Social Connections: Not on file Intimate Partner Violence: Not on file Housing Stability: Not on file Physical Exam: Physical Exam General: Well-nourished well-hydrated HENT: Head is atraumatic. Scalp is nontender. No hematomas or step-offs. Face is symmetric. Mucous membranes are hydrated. Eyes: Pupils are equal. Extraocular muscles are intact. Sclerae anicteric Skin: Warm and dry. No rash. No petechiae Abdomen: Soft. No guarding, rebound. No pulsatile masses. No bruising Respiratory: Clear. No rhonchi. No wheezing Heart: Heart tones are regular. Capillary refill is brisk. Nailbeds are pink Neurologic: Awake, alert, oriented 3. Gait is narrow-based and able. Plantar reflexes are downgoing. Deep tendon reflexes are 2 out of 4 and strong. She has 5 over 5 strength the upper and lower extremities. Intact perirectal sensation Lymphatic: No lymphedema or lymphadenopathy Musculoskeletal: No obvious fracture,. Tenderness palpation of the lumbosacral paraspinal musculature. Positive for tenderness over the coccyx. Psychiatric: Cooperative and alert with examiner Vital Signs During ED Visit Patient Vitals for the past 24 hrs: BP Temp Temp src Pulse Resp SpO2 Height 10/11/21 1340 -- -- -- -- -- -- 1.6 m (5' 3 ) 10/11/21 1339 134/84 97.9 F (36.6 C) Oral 96 17 97 % -- Orders/Results: Results for orders placed or performed during the hospital encounter of 10/11/21 URINALYSIS, MACRO Result Value Ref Range COLOR, URINE YELLOW YELLOW APPEARANCE, URINE CLEAR CLEAR Specific [place], Urine 1.020 1.010 - 1.025 PH URINE 6.0 5.0 - 7.0 PROTEIN, URINE NEGATIVE NEGATIVE mg/dl GLUCOSE, URINE NEGATIVE NEGATIVE mg/dl KETONES, URINE NEGATIVE NEGATIVE mg/dl BILIRUBIN, URINE NEGATIVE NEGATIVE BLOOD, URINE DIPSTICK NEGATIVE NEGATIVE NITRITES, URINE NEGATIVE NEGATIVE UROBILINOGEN, URINE 0.2 0.2 - 1.0 E.U./dL LEUKOCYTE ESTERASE, URINE NEGATIVE NEGATIVE Radiographic Imaging XR SACRUM/COCCYX 2+ VW Final Result IMPRESSION: Findings suggestive for nondisplaced coccygeal fracture. XR SPINE LUMBOSACRAL AP AND LATERAL Final Result IMPRESSION: Unremarkable. Procedures: Procedures Moderate Sedation Procedure: No ED Summary/MDM X-ray suggestive of a nondisplaced coccygeal fracture. L-spine is negative for fracture. Patient's urinalysis is negative for blood in urine for infection. She will be discharged home in stable and improved condition. Doughnut pillow for comfort. Follow-up with her primary Clinical Impression: 1. Closed fracture of coccyx, initial encounter No follow-ups on file. New Prescriptions ONDANSETRON 4 MG TAB DISPERSIBLE TABLET Take 1 tablet by mouth every 4 hours as needed for Nausea. Place on tongue TRAMADOL 50 MG TABLET Take 1 tablet by mouth every 6 hours as needed for Moderate Pain for up to 5 days. Discontinued Medications ONDANSETRON (ZOFRAN ODT) 4 MG TAB DISPERSIBLE TABLET Take 1 tablet by mouth every 4 hours as needed for Nausea. ONDANSETRON (ZOFRAN ODT) 4 MG TAB DISPERSIBLE TABLET Take 1 tablet by mouth every 4 hours as needed for Nausea. An After Visit Summary was printed and given to the patient with above information. . Antoine Sow MD 10/11/21 1452 documented in this encounter [facility] 10-11-2021 Physician Emergen cy department Note Emergency Department Report [facility] Service Date:.10/11/21 PCP: Tasha Mehta Chief Complaint: Chief Complaint Patient presents with Fall Pt. Fell over dog and landed on tailbone, back and hit back of head. Denies LOC. Also complains of lower abd pain. Pain 7/10. ONEAL Simon is a 26 y.o. female presents to the ED with chief complaint of Low back pain. Patient states she fell yesterday after the dog pushed her and she tripped landing on her backside on a child's toy. She states she also hit the hardwood and hit the back of her head. She denies any loss of bowel or bladder control and she states she had tingling in her legs when this initially happened but that is resolved. She states she has had some nausea and cramping. She was initially seen at the urgent care but when they felt they were incapable of taking care of her they sent her to the emergency department for further evaluation. Patient remembers the entire event. She denies any chipped or lost teeth. She denies any chance of being . She denies any blood in the urine. She has not passed out. She denies any blurred vision or double vision. She denies any bruising. She states the pain is worse when she moves Review of Systems: Review of Systems Review of Systems Constitutional: Negative for fevers or chills Skin: Negative for rash, laceration HENT: Negative for sore throat earache or nosebleeds Eyes: Negative Cardiovascular: Negative for chest pain, palpitations Gastrointestinal: Positive for nausea. Negative for vomiting Respiratory: Negative for cough, wheeze, shortness of breath Genitourinary: Negative for dysuria, frequency, incontinence. Negative for hematuria Musculoskeletal: Positive for low back pain to the buttocks Neurological: Negative for foot drop, weakness. Negative for ataxia, loss of consciousness Past Medical History: Past Medical History: Diagnosis Date Anxiety Hypothyroidism Migraine Panic attack PTSD (post-traumatic stress disorder) Past Surgical History: Past Surgical History: Procedure Laterality Date EXCISION HIDRADENITIS AXILLARY 12/26/2019 Surgeon: Bruno Thompson DO; Location: [facility] OR TREATMENT INDUCED W/ DILATION & EVACUATION 2014 THYROIDECTOMY Allergies: Allergies Allergen Reactions Coconut Oil RASH Medications: Patient's Medications New Prescriptions ONDANSETRON 4 MG TAB DISPERSIBLE TABLET Take 1 tablet by mouth every 4 hours as needed for Nausea. Place on tongue TRAMADOL 50 MG TABLET Take 1 tablet by mouth every 6 hours as needed for Moderate Pain for up to 5 days. Previous Medications ACETAMINOPHEN 500 MG TABLET Take 1,000 mg by mouth every 6 hours as needed for Pain. CYCLOBENZAPRINE 10 MG TABLET Take 1 tablet by mouth 3 times daily as needed for Muscle spasms. DICLOFENAC SODIUM [address] Take 1 tablet by mouth 2 times daily with meals. DICYCLOMINE 20 MG TABLET Take 1 tablet by mouth 3 times daily as needed for Abdominal Spasms. DULOXETINE [address] PARTICLES CAPSULE DR Take 1 capsule by mouth daily. FAMOTIDINE 40 MG TABLET Take 1 tablet by mouth 2 times daily for 7 days. GABAPENTIN 100 MG CAPSULE TAKE 1-2 CAPSULES BY MOUTH 3 TIMES A DAY NEEDED IBUPROFEN 600 MG TAB TABLET Take 600 mg by mouth Every 6 hours as needed. LEVOTHYROXINE 100 MCG TABLET Take 100 mcg by mouth daily. MEDROXYPROGESTERONE ACETATE 150 MG/ML SUSPENSION PREFILLED SYRINGE INJ SYRINGE Inject intramuscularly every 90 Days. PROMETHAZINE 25 MG SUPPOSITORY SUPPOSITORY Insert 1 suppository rectally every 6 hours as needed for Nausea / Vomiting (Nausea/Vomiting). SERTRALINE 25 MG TABLET Take 75 mg by mouth daily. Modified Medications No medications on file Discontinued Medications ONDANSETRON (ZOFRAN ODT) 4 MG TAB DISPERSIBLE TABLET Take 1 tablet by mouth every 4 hours as needed for Nausea. ONDANSETRON (ZOFRAN ODT) 4 MG TAB DISPERSIBLE TABLET Take 1 tablet by mouth every 4 hours as needed for Nausea. Family History: History reviewed. No pertinent family history. Social History: Social History Socioeconomic History Marital status: Single Spouse name: Not on file Number of children: Not on file Years of education: Not on file Highest education level: Not on file Occupational History Not on file Tobacco Use Smoking status: Light Tobacco Smoker Types: Cigarettes Last attempt to quit: 2018 Years since quittin.3 Smokeless tobacco: Never Used Tobacco comment: Few Vaping Use Vaping Use: Never used Substance and Sexual Activity Alcohol use: Not Currently Drug use: Not Currently Comment: Been clean off narcotics for 2 months. Sexual activity: Not on file Comment: [facility] 12/17/19 Other Topics Concern Not on file Social History Narrative Not on file Social Determinants of Health Financial Resource Strain: Not on file Food Insecurity: Not on file Transportation Needs: Not on file Physical Activity: Not on file Stress: Not on file Social Connections: Not on file Intimate Partner Violence: Not on file Housing Stability: Not on file Physical Exam: Physical Exam General: Well-nourished well-hydrated HENT: Head is atraumatic. Scalp is nontender. No hematomas or step-offs. Face is symmetric. Mucous membranes are hydrated. Eyes: Pupils are equal. Extraocular muscles are intact. Sclerae anicteric Skin: Warm and dry. No rash. No petechiae Abdomen: Soft. No guarding, rebound. No pulsatile masses. No bruising Respiratory: Clear. No rhonchi. No wheezing Heart: Heart tones are regular. Capillary refill is brisk. Nailbeds are pink Neurologic: Awake, alert, oriented 3. Gait is narrow-based and able. Plantar reflexes are downgoing. Deep tendon reflexes are 2 out of 4 and strong. She has 5 over 5 strength the upper and lower extremities. Intact perirectal sensation Lymphatic: No lymphedema or lymphadenopathy Musculoskeletal: No obvious fracture,. Tenderness palpation of the lumbosacral paraspinal musculature. Positive for tenderness over the coccyx. Psychiatric: Cooperative and alert with examiner Vital Signs During ED Visit Patient Vitals for the past 24 hrs: BP Temp Temp src Pulse Resp SpO2 Height 10/11/21 1340 -- -- -- -- -- -- 1.6 m (5' 3 ) 10/11/21 1339 134/84 97.9 F (36.6 C) Oral 96 17 97 % -- Orders/Results: Results for orders placed or performed during the hospital encounter of 10/11/21 URINALYSIS, MACRO Result Value Ref Range COLOR, URINE YELLOW YELLOW APPEARANCE, URINE CLEAR CLEAR Specific [place], Urine 1.020 1.010 - 1.025 PH URINE 6.0 5.0 - 7.0 PROTEIN, URINE NEGATIVE NEGATIVE mg/dl GLUCOSE, URINE NEGATIVE NEGATIVE mg/dl KETONES, URINE NEGATIVE NEGATIVE mg/dl BILIRUBIN, URINE NEGATIVE NEGATIVE BLOOD, URINE DIPSTICK NEGATIVE NEGATIVE NITRITES, URINE NEGATIVE NEGATIVE UROBILINOGEN, URINE 0.2 0.2 - 1.0 E.U./dL LEUKOCYTE ESTERASE, URINE NEGATIVE NEGATIVE Radiographic Imaging XR SACRUM/COCCYX 2+ VW Final Result IMPRESSION: Findings suggestive for nondisplaced coccygeal fracture. XR SPINE LUMBOSACRAL AP AND LATERAL Final Result IMPRESSION: Unremarkable. Procedures: Procedures Moderate Sedation Procedure: No ED Summary/MDM X-ray suggestive of a nondisplaced coccygeal fracture. L-spine is negative for fracture. Patient's urinalysis is negative for blood in urine for infection. She will be discharged home in stable and improved condition. Doughnut pillow for comfort. Follow-up with her primary Clinical Impression: 1. Closed fracture of coccyx, initial encounter No follow-ups on file. New Prescriptions ONDANSETRON 4 MG TAB DISPERSIBLE TABLET Take 1 tablet by mouth every 4 hours as needed for Nausea. Place on tongue TRAMADOL 50 MG TABLET Take 1 tablet by mouth every 6 hours as needed for Moderate Pain for up to 5 days. Discontinued Medications ONDANSETRON (ZOFRAN ODT) 4 MG TAB DISPERSIBLE TABLET Take 1 tablet by mouth every 4 hours as needed for Nausea. ONDANSETRON (ZOFRAN ODT) 4 MG TAB DISPERSIBLE TABLET Take 1 tablet by mouth every 4 hours as needed for Nausea. An After Visit Summary was printed and given to the patient with above information. . Antoine Sow MD 10/11/21 1451 [facility] 10-11-2021 History of Presen t illness Narrative Images from the original note were not included. [facility] Brief Evaluation Form Patient Name: [facility] Location: Herm[facility]io Simon [address] [id number] Date Of : Date Of Visit: 1995 10/11/2021 MRN# Provider: [id number] Eliasgarcia Dubon PA-C SUBJECTIVE Herminio Simon presented [facility] with Back Pain (1 day. Lower back pain and Rt side hip pain. Nausea. Lower middle abdominal pain. Pt is taking neurontin and rexulti.) HPI: 26-year-old female to the urgent care for complaint of pain which starts in the mid thoracic region and radiates down the midline all the way to the coccyx. She also complains of pain in the right hip and a left lower quadrant abdominal pain which is near midline. She states she was at home and fell backwards onto a child's toy which was a fair size and hard in nature. All of her symptoms began with the fall. The patient is tender to palpation of the left lower quadrant though there is no guarding or rigidity. She complains of midline tenderness all the way down from the mid thoracic region down to her sacral region. She denies any numbness or tingling to extremities. I have advised her that I am most concerned about the abdominal pain which started on the fall. We decided we will send her to the [facility] emergency department for evaluation particularly of the abdominal complaint. Patient feels well enough to drive herself to the facility. I contacted the emergency department to advise them of her complaints here regarding arrival at their facility. Allergies: Buprenorphine-naloxone and Coconut oil OBJECTIVE BP 115/81 Pulse 87 Temp 97.2 F (36.2 C) (Tympanic) Resp 18 Wt 60.3 kg (133 lb) SpO2 98% BMI 23.56 kg/m Pertinent PE Findings: Tenderness in the left lower quadrant near the midline. No guarding or rigidity present. She is tender to palpation down the entire thoracic and lumbar sacral area. ASSESSMENT 1. Acute midline low back pain without sciatica 2. Left lower quadrant abdominal pain 3. Right hip pain Medical Decision Making: M most concerned about the abdominal discomfort that started with the fall. I have advised her that for appropriate evaluation of the abdomen she will need to go to the emergency department. PLAN Patient is being recommended to go to [facility] emergency department for further evaluation and treatment. Patient will transport via Private Auto (Self). Transfer Center Contacted: no Orders Placed This Visit No orders of the defined types were placed in this encounter. Medication List At End Of Visit Current Outpatient Medications Medication Sig Dispense Refill busPIRone (BUSPAR) 10 MG tablet Take 10 mg by mouth 2 (two) times a day . estradiol cypionate (DEPO-ESTRADIOL) 5 mg/mL injection Inject into the shoulder, thigh, or buttocks every 28 days . levothyroxine (SYNTHROID, LEVOTHROID) 100 MCG tablet Take 1 tablet by mouth daily . sertraline (ZOLOFT) 50 MG tablet Take 50 mg by mouth daily . sertraline (ZOLOFT) 50 MG tablet Take 50 mg by mouth daily . cyclobenzaprine (FLEXERIL) 10 MG tablet Take 10 mg by mouth 3 (three) times a day as needed . No current facility-administered medications for this visit. documented in this encounter [facility] 08-20-2021 History of Presen t illness Narrative Images from the original note were not included. Patient Name: [facility] Location: [place] [address] [id number] Date Of : Date Of Visit: 1995 08/20/2021 MRN# Provider: [id number] Lisbeth Louis PA-C Chief Complaint Patient presents with Urinary Tract Infection 1 week burning during urination, exposure to std, umbilicus infection Assessment & Plan 1. Dysuria POC Urinalysis Dipstick,Auto UC Chlamydia/GC/Trichomonas Amplified RNA Chlamydia/GC/Trichomonas Amplified RNA sulfamethoxazole-trimethoprim (BACTRIM DS,SEPTRA DS) 800-160 mg per tablet Urine Aerobic Culture No follow-ups on file. Medical Decision Making Considered UTI, pyelonephritis, nephrolithiasis, vaginitis. Patient's urinalysis in the office today indicates a urinary tract infection with positive leukocytes and blood, nitrates were negative. Patient's symptoms are also consistent with a UTI. Patient will be treated for UTI with Bactrim. This will also cover any cellulitis, wound infection at the umbilicus with her piercing. They are not having any flank pain, chills, vomiting or other signs to warrant an emergent referral on this date and time of exam. A urine will be sent for gonorrhea/chlamydia/trichomonas testing with further therapy pending the results. Recommended that they should return to urgent care, make an appointment with their family physician, or go to the emergency room if symptoms persist or get acutely worse. Additional Clinical Comments Discussed over the counter medications for symptomatic management and side effects of medications. Recommended taking all medications with food and to stop medications if they develop any signs of an allergic reaction. Educated patient and/or guardian about signs and symptoms that would warrant further immediate evaluation. Recommended that they should return to urgent care, make an appointment with their family physician, or go to the emergency room if symptoms persist or get acutely worse. Recommended follow up within the next week with their PCP or to get established with a PCP soon in order to follow up appropriately. Subjective 26 y.o. female presents with Urinary Tract Infection (1 week burning during urination, exposure to std, umbilicus infection) Patient is a 26-year-old female who presents with burning with urination for the past week. Patient states symptoms started after having intercourse with an established partner. Patient is also concerned for STI due to some thin discharge. She denies any known exposure to STIs. Patient denies any vaginal sores. Patient does have a history of herpes. Patient states she is not currently on a menstrual period. Patient also reports concern for possible infected bellybutton piercing. Patient states she has noticed crusting and discharge from the piercing over the past 1 to 2 weeks. No self treatment. Urinary Tract Infection This is a new problem. The current episode started in the past 7 days. The problem occurs every urination. The problem has been unchanged. The quality of the pain is described as burning. Maximum temperature: low grade, 99. She is sexually active. There is no history of pyelonephritis. Associated symptoms include a discharge, frequency, nausea and sweats. Pertinent negatives include no chills, flank pain, hematuria, hesitancy, possible , urgency or vomiting. She has tried nothing for the symptoms. Review Of Systems Review of Systems Constitutional: Negative for chills and fever. Gastrointestinal: Positive for abdominal pain and nausea. Negative for vomiting. Genitourinary: Positive for dysuria and frequency. Negative for difficulty urinating, flank pain, hematuria, hesitancy and urgency. Skin: Positive for wound (belly button piercing). Negative for rash. Medical History Past Medical History: Diagnosis Date Disease of thyroid gland MRSA (methicillin resistant staph aureus) culture positive Past Surgical History: Procedure Laterality Date mrsa removal THYROIDECTOMY There is no problem list on file for this patient. Social History Social History Tobacco Use Smoking status: Never Smoker Smokeless tobacco: Never Used Vaping Use Vaping Use: Never used Substance Use Topics Alcohol use: Never Drug use: Never Family History History reviewed. No pertinent family history. Objective Physical Exam BP 113/77 Pulse 82 Temp 98.5 F (36.9 C) Resp 17 Ht 5' 3 Wt 60.5 kg (133 lb 4.8 oz) SpO2 96% BMI 23.61 kg/m Vision/Hearing Exam:No exam data present Physical Exam Vitals and nursing note reviewed. Constitutional: General: She is not in acute distress. Appearance: Normal appearance. She is not ill-appearing or toxic-appearing. Cardiovascular: Rate and Rhythm: Normal rate and regular rhythm. Pulmonary: Effort: Pulmonary effort is normal. Breath sounds: Normal breath sounds. Abdominal: General: Abdomen is flat. There is no distension. Palpations: There is no mass. Tenderness: There is abdominal tenderness in the right lower quadrant and suprapubic area. There is no right CVA tenderness, left CVA tenderness, guarding or rebound. Negative signs include McBurney's sign. Skin: General: Skin is warm and dry. Comments: Piercing of umbilicus appears mildly erythematous with no drainage, edema, warmth or tenderness to palpation. Neurological: General: No focal deficit present. Mental Status: She is alert. Procedure Notes Procedures Results Recent Results (from the past 168 hour(s)) POC Urinalysis Dipstick,Auto UC Collection Time: 08/20/21 2:31 PM Result Value Ref Range POC Color, Urine Yellow Yellow, Light Yellow, Dark Yellow Clarity, UA Clear Clear Glucose, UA Negative Normal, Negative mg/dL Bilirubin, UA Negative Negative Ketones, UA Negative Negative mg/dL Spec Grav, UA 1.030 (A) 1.005 - 1.025 Blood, UA Moderate (A) Negative pH, UA 6.0 5.0 - 7.0 Protein, UA 300 (A) Negative mg/dL Urobilinogen, UA 0.2 <2.0, 0.2, Normal, Negative, 1.0, 2.0, <1.0 mg/dL Nitrite, UA Negative Negative Leukocyte Esterase, UA Small (A) Negative No orders to display Orders Placed This Visit Orders Placed This Encounter Procedures Chlamydia/GC/Trichomonas Amplified RNA Chlamydia/Gonorrhoeae Amplified RNA Trichomonas vaginalis Amplified RNA Urine Aerobic Culture POC Urinalysis Dipstick,Auto UC Medication List At End Of Visit Current Outpatient Medications Medication Sig Dispense Refill estradiol cypionate (DEPO-ESTRADIOL) 5 mg/mL injection Inject into the shoulder, thigh, or buttocks every 28 days . levothyroxine (SYNTHROID, LEVOTHROID) 100 MCG tablet Take 1 tablet by mouth daily . sertraline (ZOLOFT) 50 MG tablet Take 50 mg by mouth daily . cyclobenzaprine (FLEXERIL) 10 MG tablet Take 10 mg by mouth 3 (three) times a day as needed . sertraline (ZOLOFT) 50 MG tablet Take 50 mg by mouth daily . sulfamethoxazole-trimethoprim (BACTRIM DS,SEPTRA DS) 800-160 mg per tablet Take 1 (one) tablet by mouth 2 (two) times a day for 7 days . 14 tablet 0 No current facility-administered medications for this visit. There are no Patient Instructions on file for this visit. documented in this encounter [facility] 05-30-2021 Emergency departm ent Note Dr. Hampton in room at this time. Emergency Department Report [facility] Service Date:.05/30/21 PCP: Tasha Mehta Chief Complaint: Chief Complaint Patient presents with Abdominal Pain Pt. complains of abd pain and vomiting for last 3 weeks after eating food. Pt. states zofran isn't working. Pain 11/29. HPI Herminio Simon is a 26 y.o. female presents to the ED today due to 3 weeks of intermittent abdominal pain, nausea, vomiting. Patient states that she has been having a hard time keeping food in. Patient has a history of Percocet dependence, she would swallow the pills. Patient has currently been taking Suboxone for the past 2 months. Patient only had the nausea and vomiting for the past 3 weeks. Patient does not take a lot of anti-inflammatories daily, she is not a daily marijuana smoker. Patient Has no black stools. Patient's PCP is placed on Zofran several times. Patient has not seen a GI physician before. Patient was sent to the ER to be evaluated for possible pancreatitis and chronic nausea and vomiting. Patient currently not working. No diet changes, no water changes. No other acute complaints this time. Patient did have small hard bowel movement today, she has been having small hard bowel movements when she does, which could be secondary to Suboxone. Patient is not vaccinated against coronavirus. Review of Systems: Review of Systems Unless otherwise stated in this report or unable to obtain because of the patient's clinical or mental status as evidenced by medical record, the patient's positive and negative responses for review of systems for constitutional, eyes, ENT, cardiovascular, respiratory, gastrointestinal, neurological, , musculoskeletal, and integument systems and related systems to the presenting problem are either stated in the history of present illness or were not pertinent or were negative for the symptoms and/or complaints related to the presenting medical problem. Past Medical History: Past Medical History: Diagnosis Date Anxiety Hypothyroidism Migraine Panic attack PTSD (post-traumatic stress disorder) Past Surgical History: Past Surgical History: Procedure Laterality Date EXCISION HIDRADENITIS AXILLARY 12/26/2019 Surgeon: Bruno Thompson DO; Location: [facility] OR TREATMENT INDUCED W/ DILATION & EVACUATION 2014 THYROIDECTOMY Allergies: Allergies Allergen Reactions Coconut Oil RASH Medications: Patient's Medications New Prescriptions DICYCLOMINE 20 MG TABLET Take 1 tablet by mouth 3 times daily as needed for Abdominal Spasms. FAMOTIDINE 40 MG TABLET Take 1 tablet by mouth 2 times daily for 7 days. ONDANSETRON (ZOFRAN ODT) 4 MG TAB DISPERSIBLE TABLET Take 1 tablet by mouth every 4 hours as needed for Nausea. PROMETHAZINE 25 MG SUPPOSITORY SUPPOSITORY Insert 1 suppository rectally every 6 hours as needed for Nausea / Vomiting (Nausea/Vomiting). Previous Medications ACETAMINOPHEN 500 MG TABLET Take 1,000 mg by mouth every 6 hours as needed for Pain. CYCLOBENZAPRINE 10 MG TABLET Take 1 tablet by mouth 3 times daily as needed for Muscle spasms. DICLOFENAC SODIUM [address] Take 1 tablet by mouth 2 times daily with meals. DULOXETINE [address] PARTICLES CAP[address]LE DR Take 1 capsule by mouth daily. IBUPROFEN 600 MG TAB TABLET Take 600 mg by mouth Every 6 hours as needed. LEVOTHYROXINE 100 MCG TABLET Take 100 mcg by mouth daily. MEDROXYPROGESTERONE ACETATE 150 MG/ML SUSPENSION PREFILLED SYRINGE INJ SYRINGE Inject intramuscularly every 90 Days. ONDANSETRON (ZOFRAN ODT) 4 MG TAB DISPERSIBLE TABLET Take 1 tablet by mouth every 4 hours as needed for Nausea. SERTRALINE 25 MG TABLET Take 75 mg by mouth daily. Modified Medications No medications on file Discontinued Medications No medications on file Family History: History reviewed. No pertinent family history. Social History: Social History Socioeconomic History Marital status: Single Spouse name: Not on file Number of children: Not on file Years of education: Not on file Highest education level: Not on file Occupational History Not on file Tobacco Use Smoking status: Light Tobacco Smoker Types: Cigarettes Last attempt to quit: 2018 Years since quittin.0 Smokeless tobacco: Never Used Tobacco comment: Few Vaping Use Vaping Use: Never used Substance and Sexual Activity Alcohol use: Not Currently Drug use: Not Currently Comment: Been clean off narcotics for 2 months. Sexual activity: Not on file Comment: LMP 12/17/19 Other Topics Concern Not on file Social History Narrative Not on file Social Determinants of Health Financial Resource Strain: Not on file Food Insecurity: Not on file Transportation Needs: Not on file Physical Activity: Not on file Stress: Not on file Social Connections: Not on file Intimate Partner Violence: Not on file Housing Stability: Not on file Physical Exam: Physical Exam vital signs reviewed and patient is not hypoxic. General: The patient appears well and in no apparent distress. Patient is resting comfortably on cart. Not toxic, lethargic, or listless. Skin: Warm, dry, no pallor noted. There is no rash noted. Head: Normocephalic, atraumatic Eye: Normal conjunctiva, no drainage, EOMI. PERRL. Ears, Nose, Mouth, and Throat: oral mucosa is moist. Nares patent. Mouth without vesicles, no acute intraoral pathology. Cardiovascular: Regular Rate and Rhythm, no murmurs, gallops, or rubs Respiratory: Patient is in no distress, no accessory muscle use, lungs are clear to auscultation, no wheezing, rales or rhonchi Back: non-tender, no CVA tenderness bilaterally to percussion. NO CTLS midline or paraspinal tenderness to palpation. GI: Soft, patient has mild tenderness palpation to the right and left lower quadrant, mild suprapubic tenderness to palpation, bowel sounds 4, otherwise no tenderness to palpation, no masses appreciated. No rebound, guarding, or rigidity noted. Musculoskeletal: The patient has full range of motion of all extremities and joints with no difficulty. Patient has no motor, no sensory deficits. Neurological: A&O x4, normal speech, no focal neurological deficits. Psychiatric: Cooperative Vital Signs During ED Visit Patient Vitals for the past 24 hrs: BP Temp Temp src Pulse Resp SpO2 Height 05/30/21 1700 113/72 84 100 % 05/30/21 1608 1.6 m (5' 3 ) 05/30/21 1607 134/77 98.4 F (36.9 C) Oral 99 17 100 % 05/30/21 1600 134/77 96 99 % Orders/Results: Orders Placed This Encounter CBC, EDIF, PLATELET CHEM 7 (LYTES,BUN,CREA,GLUC) HEPATIC FUNCTION PANEL LIPASE MONONUCLEOSIS SCREEN AMB REFERRAL TO GASTROENTEROLOGY sodium chloride 0.9% IV solution 1,000 mL ondansetron 4mg/2ml (ZOFRAN) injection 4 mg faMOTIdine (PEPCID) injection 20 mg ondansetron (Zofran ODT) 4 MG Tab Dispersible tablet dicyclomine 20 MG tablet famotidine 40 MG tablet promethazine 25 MG Suppository suppository URINALYSIS, MACRO HCG QUALITATIVE, URINE URINE MICROSCOPIC Results for orders placed or performed during the hospital encounter of 05/30/21 CBC, EDIF, PLATELET Result Value Ref Range WBC (WHITE BLOOD COUNT) 4.0 3.6 - 11.0 10*3/uL RBC 4.76 4.0 - 5.4 10*6/uL HEMOGLOBIN (HGB) 14.3 12.0 - 16.0 G/DL HEMATOCRIT (HCT) 42.0 36.0 - 48.0 % MEAN CELL VOLUME 88.2 80.0 - 100.0 FL Mean Cell HGB 30.1 26.0 - 35.0 PG MEAN CELL HGB CONCENTRATION 34.1 27.0 - 37.0 G/DL RBC DISTRIBUTION 12.2 11.5 - 14.5 % PLATELET COUNT 201 130.0 - 400.0 10*3/uL MEAN PLATELET VOLUME 7.2 (L) 7.4 - 11.0 FL DIFFERENTIAL TYPE AUTO DIFF % NEUTROPHILS 46.6 37.0 - 75.0 % LYMPHOCYTE 41.2 20.0 - 55.0 % MONOCYTE % 10.1 (H) 0.0 - 10.0 % EOSINOPHIL % 1.2 0.0 - 11.0 % BASOPHIL % 0.9 0.0 - 2.0 % Absolute Neutrophil Count 1.9 1.4 - 6.5 10*3/uL LYMPHOCYTES, ABSOLUTE 1.70 1.2 - 3.4 10*3/uL MONOCYTES, ABSOLUTE 0.4 0.0 - 0.7 10*3/uL ABSOLUTE EOSINOPHIL COUNT 0.00 0.0 - 0.7 10*3/uL ABSOLUTE BASOPHIL COUNT 0.0 0.0 - 0.2 10*3/uL CHEM 7 (LYTES,BUN,CREA,GLUC) Result Value Ref Range GLUCOSE 103 (H) 70 - 100 MG/DL BUN 15 7 - 20 MG/DL CREATININE SERUM 0.65 (L) 0.7 - 1.2 MG/DL SODIUM 141 137 - 145 MMOL/L POTASSIUM 3.9 3.5 - 5.1 MMOL/L CHLORIDE 107 98 - 107 MMOL/L CARBON DIOXIDE (CO2) 23 22 - 30 MMOL/L ESTIMATED GFR, NON AMER >60 ml/min/1.73sq.m ESTIMATED GFR, >60 ml/min/1.73sq.m GFR COMMENT Average GFR for 20-29 years old = 116. HEPATIC FUNCTION PANEL Result Value Ref Range ALBUMIN 4.5 2.9 - 5.3 G/DL BILIRUBIN, TOTAL 0.6 0.2 - 1.3 MG/DL ALKALINE PHOSPHATASE 43 38 - 126 IU/L AST 20 14 - 36 IU/L BILIRUBIN, DIRECT 0.1 0 - 0.4 MG/DL PROTEIN, TOTAL 7.7 6.3 - 8.2 GM/DL ALT 15 <35 IU/L LIPASE Result Value Ref Range LIPASE 251 23 - 300 U/L MONONUCLEOSIS SCREEN Result Value Ref Range MONONUCLEOSIS SCREEN NEGATIVE NEGATIVE URINALYSIS, MACRO Result Value Ref Range COLOR, URINE YELLOW YELLOW APPEARANCE, URINE CLEAR CLEAR SPECIFIC GRAVITY, URINE 1.025 1.010 - 1.025 PH URINE 6.0 5.0 - 7.0 PROTEIN, URINE NEGATIVE NEGATIVE mg/dl GLUCOSE, URINE NEGATIVE NEGATIVE mg/dl KETONES, URINE NEGATIVE NEGATIVE mg/dl BILIRUBIN, URINE NEGATIVE NEGATIVE BLOOD, URINE DIPSTICK TRACE-INTACT (A) NEGATIVE NITRITES, URINE NEGATIVE NEGATIVE UROBILINOGEN, URINE 0.2 0.2 - 1.0 E.U./dL LEUKOCYTE ESTERASE, URINE NEGATIVE NEGATIVE HCG QUALITATIVE, URINE Result Value Ref Range HCG, QUALITATIVE, URINE NEGATIVE URINE MICROSCOPIC Result Value Ref Range WBC, URINE NEGATIVE NEGATIVE /HPF RBC, URINE NEGATIVE NEGATIVE /HPF Epithelial Cells UA 5 TO 10 /HPF Mucus NEGATIVE NEGATIVE BACTERIA, URINE TRACE (A) NEGATIVE CRYSTALS, URINE NONE NONE CASTS, URINE NONE NONE /LPF COMMENT, URINE CULTURE CRITERIA NOT MET, NO CULTURE PERFORMED. Radiographic Imaging No orders to display Procedures: Procedures Moderate Sedation Procedure: No ED Summary/MDM Patient's lab work shows no acute findings. Patient will be started on Pepcid prophylactically. Patient was given Zofran, Phenergan, and Bentyl prophylactically. Patient will follow-up and was referred to GI physician. Patient will start increasing fluids and use MiraLAX to help with constipation that could be secondary to Suboxone. Patient states she has no alcohol history, no history of Gastritis or ulcers. Patient will follow-up with PCP. No questions at discharge. Patient was given 1 L of IV fluid. Patient was given a GI cocktail prior to discharge. Clinical Impression: 1. Lower abdominal pain 2. Non-intractable vomiting with nausea, unspecified vomiting type 3. Slow transit constipation No follow-ups on file. New Prescriptions DICYCLOMINE 20 MG TABLET Take 1 tablet by mouth 3 times daily as needed for Abdominal Spasms. FAMOTIDINE 40 MG TABLET Take 1 tablet by mouth 2 times daily for 7 days. ONDANSETRON (ZOFRAN ODT) 4 MG TAB DISPERSIBLE TABLET Take 1 tablet by mouth every 4 hours as needed for Nausea. PROMETHAZINE 25 MG SUPPOSITORY SUPPOSITORY Insert 1 suppository rectally every 6 hours as needed for Nausea / Vomiting (Nausea/Vomiting). Discontinued Medications No medications on file An After Visit Summary was printed and given to the patient with above information. . . Zelalem Hampton DO 05/30/[id number] documented in this encounter [facility] 05-30-2021 Hospital Discharg e instructions Zelalem Hampton DO - 05/30/2021 Use MiraLAX daily or every other day to have more normal consistency to bowel movement. If constipation gets really bad, use [id number] magnesium citrate bottle or mineral oil bottle. Take antacid medication daily, given referred to GI physician as well. Follow-up with PCP, increase fluids. The following attachments cannot be sent through Care Everywhere.High Fiber Diet ([facility]) ([place])Constipation ([place])Abdominal Pain ([place])Gastritis ([place])Nausea and Vomiting ([place])documented in this encounter [facility] 04-01-2021 History of Presen t illness Narrative NEW PATIENT: CHIEF COMPLAINT: Low back pain and right leg pain HISTORY OF PRESENT ILLNESS: Nurse Note: Review of Systems Constitutional: Positive for activity change, appetite change, fatigue and unexpected weight change. HENT: Positive for rhinorrhea. Endocrine: Positive for polyphagia and polyuria. Musculoskeletal: Positive for back pain, gait problem and joint swelling. Neurological: Positive for weakness and numbness. Psychiatric/Behavioral: Positive for sleep disturbance. All other systems reviewed and are negative. Thank you for the referral of Herminio Simon. As you know, she is a very pleasant 25 y.o. female who presents with low back and right hip pain. The patient began to notice this pain generator December 22, 2020. Herminio does not recall an inciting event. Pain is described as Aching, Throbbing, Shooting, Stabbing, Sharp and Tender and is rated 8/10. Pain is increased with going up and down stairs and walking and is relieved by pain medication. The patient states that pain is worst all the time. The patient admits to having numbness/tingling right leg. Herminio admits to having weakness right leg. The patient denies bowel/bladder incontinence. Treatment modalities that have been used include relaxation, pain medication, ice, lying down, heating pad, injection, hot bath and chiropractor, bracing. The patient admits to having injection therapy, Lumbar Trigger Point Injections x3 in [facility]. The patient does not report spine surgery. Diagnostic studies include Xray lumbosacral spine 01/09/21 and MRI lumbar on 01/29/21. Audit-C Questionnaire 1. How often do you have a drink containing alcohol? (0) never 2. How many standard drinks containing alcohol do you have on a typical day? n/a 3. How often do you have six or more drinks on one occasion? (0) never *A score of 3 or more in women or 4 or more in men is a positive score that requires education. Nursing Assessment: Physical Exam Past Medical History Past Medical History: Diagnosis Date Anxiety Hypothyroidism Migraine Panic attack PTSD (post-traumatic stress disorder) Social History Social History Socioeconomic History Marital status: Single Spouse name: Not on file Number of children: Not on file Years of education: Not on file Highest education level: Not on file Occupational History Not on file Tobacco Use Smoking status: Former Smoker Types: Cigarettes Quit date: 2018 Years since quittin.8 Smokeless tobacco: Never Used Vaping Use Vaping Use: Never used Substance and Sexual Activity Alcohol use: Not Currently Drug use: Not Currently Sexual activity: Not on file Comment: LMP 12/17/19 Other Topics Concern Not on file Social History Narrative Not on file Social Determinants of Health Financial Resource Strain: Not on file Food Insecurity: Not on file Transportation Needs: Not on file Physical Activity: Not on file Stress: Not on file Social Connections: Not on file Intimate Partner Violence: Not on file Housing Stability: Not on file Family History No family history on file. MEDICATIONS Current Outpatient Medications Medication Sig Dispense Refill acetaminophen 500 MG tablet Take 1,000 mg by mouth every 6 hours as needed for Pain. cyclobenzaprine 10 MG tablet Take 1 tablet by mouth 3 times daily as needed for Muscle spasms. 21 tablet 0 ibuprofen 600 MG Tab tablet Take 600 mg by mouth Every 6 hours as needed. levothyroxine 100 MCG tablet Take 100 mcg by mouth daily. medroxyPROGESTERone acetate 150 MG/ML Suspension Prefilled Syringe inj syringe Inject intramuscularly every 90 Days. ondansetron (Zofran ODT) 4 MG Tab Dispersible tablet Take 1 tablet by mouth every 4 hours as needed for Nausea. 15 tablet 0 sertraline 25 MG tablet Take 75 mg by mouth daily. No current facility-administered medications for this visit. DIAGNOSTIC TESTING: See [facility], Care Everywhere, or Media for results REVIEW OF SYSTEMS: Review of Systems PHYSICAL EXAM: Head: Head is atraumatic, normocephalic, and facial symmetry maintained. Cranial nerves are intact and present. Neck: Neck is supple without any lesions, and trachea is midline. Neck is bullous Heart: Heart is of regular rate and rhythm with no JVD noted. Lung: Lungs is are of normal expansion and unlabored. No audible wheezing noted. Respirations are non-labored. Abdomen: Abdomen is soft and non-distended. Abdomen is obese. Back: Range of motion is guarded for flexion, extension, and rotation with moderate pain. Tenderness is noted along extension, compression, and direct palpation along the lumbar facets bilateral. There is positive axial loading to the lumbar facets bilateral. No paravertebral spasms or trigger points noted to the lumbar musculature. Akiko's is slightly positive as is the compression test, sacral thrust, and distraction test. Pain is noted in the lumbar and extends into the RLE with paresthsias Extremities: No pedal or ankle edema is noted to bilateral lower extremities. There is noted an antalgic gait. Musculoskeletal: Musculoskeletal is intact with no noted motor weaknesses to the upper and lower extremities bilateral. Gait is steady Neurological: The patient is intact to the upper and lower extremities bilaterally. Patellar reflex 2/2 and Achilles reflexes are 2/2 and are present bilaterally to lower extremities Bicep, brachial radialis, and tricep reflexes are present and intact to the upper bilateral extremities. Psychiatric: The patient is cooperative, alert and oriented 3, and appropriate. No acute distress is noted. There a no loose associations noted. Patient is able to answer all questions without difficulty or hesitation. DIAGNOSES: Chronic Pain Syndrome Lumbar radiculopathy PLAN: 1. UDS - 04/01/2021 2. Pt presents with poor posture. An exercise program was given to the patient to strengthen core muscles to help support the spine. 3. I recommended an exercise program to utilize at home for strengthening. I would like the patient to do these exercises at least 1-2 times per day assist with pain. 4. These are recommended videos for you to watch on [email or web address] - This was attached to the after visit summary today [employer] *How to fix posture in 4 steps. *How to fix rounded shoulders. *How to fix low back pain. 5. OARRS - OARRS report was reviewed with no advert or drug-seeking behaviors. 6. Lumbar MRI reviewed today with the patient 7. Hx of muscle tension and has frequent spasms. Taking flexeril currently through the provider 8. Recommended physical therapy today in the office for low back pain. She may have to proceed with this 2/2 insurance 9. Recommended a right TFESI at the level of L5-S1 10. Hx of Suboxone therapy 11. Dr Titus placed the patient a non-narcotic care plan as she has had hx of ETOH,, pain medication abuse and last had suboxone in March 03. She is asking for a prescription for [place]. Discussed that we will proceed with NSAID therapy along with the tylenol. We also discussed starting on the cymbalta She is taking sertraline and asked her to call office if she has side effects of the cymbalta 13. We will start cymbalta 30 mg 1 PO daily and hold this dose and Diclofenac 50 mg 1 PO BID with food 14. RTC after PT Thank you for the opportunity to participate in the care of your patient. Sincerely, Mary Ellen Valles APRN HISTORIOGRAPHY TEACHER Nurse Note: Review of Systems Constitutional: Positive for activity change, appetite change, fatigue and unexpected weight change. HENT: Positive for rhinorrhea. Endocrine: Positive for polyphagia and polyuria. Musculoskeletal: Positive for back pain, gait problem and joint swelling. Neurological: Positive for weakness and numbness. Psychiatric/Behavioral: Positive for sleep disturbance. All other systems reviewed and are negative. Thank you for the referral of Herminio Simon. As you know, she is a very pleasant 25 y.o. female who presents with low back and right hip pain. The patient began to notice this pain generator December 22, 2020. Herminio does not recall an inciting event. Pain is described as Aching, Throbbing, Shooting, Stabbing, Sharp and Tender and is rated 8/10. Pain is increased with going up and down stairs and walking and is relieved by pain medication. The patient states that pain is worst all the time. The patient admits to having numbness/tingling right leg. Herminio admits to having weakness right leg. The patient denies bowel/bladder incontinence. Treatment modalities that have been used include relaxation, pain medication, ice, lying down, heating pad, injection, hot bath and chiropractor, bracing. The patient admits to having injection therapy, Lumbar Trigger Point Injections x3 in [facility]. The patient does not report spine surgery. Diagnostic studies include Xray lumbosacral spine 01/09/21 and MRI lumbar on 01/29/21. Audit-C Questionnaire 1. How often do you have a drink containing alcohol? (0) never 2. How many standard drinks containing alcohol do you have on a typical day? n/a 3. How often do you have six or more drinks on one occasion? (0) never *A score of 3 or more in women or 4 or more in men is a positive score that requires education. Nursing Assessment: Physical Exam completed and history/imaging reviewed by Mary Ellen Valles NP. documented in this encounter [facility] 04-01-2021 Instructions Keenan Fallon RN - 04/01/2021 8:30 AM EST Physical Therapy (*offers Aquatic therapy) [place] [facility] * [facility] * [address] [place] [address] [place], [place] [address] [place], [place] [address] [phone] [facility] Aquatic Therapy @ [facility] * [address] through [facility] [place], [place] [address] [phone] Ext [phone] [facility] Therapy [facility] [address] [address] [place], [place] [phone] documented in this encounter [facility] 02-21-2021 History of Presen t illness Narrative Images from the original note were not included. Patient Name: [facility] Location: [place] [address] [address] [facility] [id number] Date Of : Date Of Visit: 1995 02/21/2021 MRN# Provider: [id number] Chio Blanco, MATY Chief Complaint Patient presents with Cough cough, congestion, pain with coughing x 1 week. Has taken tylenol with no relief. Assessment & Plan 1. Viral illness xfwavwqpybtrwtz-aphxgfvOSXQxyww-[id number] 2-30-10 mg/5 mL syrup 2. Exposure to 2019 novel coronavirus COVID-19, Molecular No follow-ups on file. Medical Decision Making Considered covid, uri, viral illness 1. Covid negative 2. Bromfed prescribed for symptoms 3. Encouraged hydration and use of humidifier at night, tylenol/motrin as needed 4. Advised follow up with pcp in 1-3 days Additional Clinical Comments Discussed over the counter medications for symptomatic management and side effects of medications. Recommended taking all medications with food and to stop medications if they develop any signs of an allergic reaction. Educated patient and/or guardian about signs and symptoms that would warrant further immediate evaluation. Recommended that they should return to urgent care, make an appointment with their family physician, or go to the emergency room if symptoms persist or get acutely worse. Recommended follow up within the next week with their PCP or to get established with a PCP soon in order to follow up appropriately. Subjective 25 y.o. female presents with Cough (cough, congestion, pain with coughing x 1 week. Has taken tylenol with no relief. ) Illness The current episode started 1 to 4 weeks ago (1 week). The problem is unchanged. Associated symptoms include congestion, headaches and coughing. Pertinent negatives include no ear pain, rhinorrhea, sore throat, fatigue, fever, chest pain, shortness of breath, abdominal pain, diarrhea, nausea, vomiting, muscle aches or rash. Past treatments include one or more OTC medications. The treatment provided mild relief. Review Of Systems Review of Systems Constitutional: Negative for chills, fatigue and fever. HENT: Positive for congestion. Negative for ear pain, rhinorrhea and sore throat. Denies loss of taste or smell Respiratory: Positive for cough. Negative for shortness of breath. Cardiovascular: Negative for chest pain. Gastrointestinal: Negative for abdominal pain, diarrhea, nausea and vomiting. Musculoskeletal: Negative for myalgias. Skin: Negative for rash. Neurological: Positive for headaches. Medical History Past Medical History: Diagnosis Date Disease of thyroid gland MRSA (methicillin resistant staph aureus) culture positive Past Surgical History: Procedure Laterality Date mrsa removal THYROIDECTOMY There is no problem list on file for this patient. Social History Social History Tobacco Use Smoking status: Never Smoker Smokeless tobacco: Never Used Vaping Use Vaping Use: Never used Substance Use Topics Alcohol use: Never Drug use: Never Family History History reviewed. No pertinent family history. Objective Physical Exam Pulse 97 Temp 98.6 F (37 C) SpO2 96% Vision/Hearing Exam:No exam data present Physical Exam Vitals and nursing note reviewed. Constitutional: General: She is not in acute distress. Appearance: She is well-developed. She is not diaphoretic. HENT: Head: Normocephalic and atraumatic. Right Ear: External ear normal. Left Ear: External ear normal. Nose: Rhinorrhea present. Eyes: General: Right eye: No discharge. Left eye: No discharge. Conjunctiva/sclera: Conjunctivae normal. Pulmonary: Effort: Pulmonary effort is normal. No respiratory distress. Breath sounds: Normal breath sounds. No stridor. No wheezing, rhonchi or rales. Abdominal: General: There is no distension. Musculoskeletal: General: Normal range of motion. Cervical back: Normal range of motion and neck supple. Skin: Findings: No rash. Neurological: General: No focal deficit present. Mental Status: She is alert. Psychiatric: Behavior: Behavior normal. Thought Content: Thought content normal. Judgment: Judgment normal. Procedure Notes Procedures Results Recent Results (from the past 168 hour(s)) COVID-19, Molecular Collection Time: 02/21/21 1:21 PM Specimen: Nasopharyngeal; Swab Result Value Ref Range SARS-CoV-2 Not Detected Not Detected No orders to display Orders Placed This Visit Orders Placed This Encounter Procedures COVID-19, Molecular Medication List At End Of Visit Current Outpatient Medications Medication Sig Dispense Refill vbbnvwgdgkwgpnm-hjtuvwpVGCJcvha-ZZ 2-30-10 mg/5 mL syrup Take 5 mL by mouth 4 (four) times a day as needed . 200 mL 0 estradiol cypionate (DEPO-ESTRADIOL) 5 mg/mL injection Inject into the shoulder, thigh, or buttocks every 28 days . levothyroxine (SYNTHROID, LEVOTHROID) 100 MCG tablet Take 1 tablet by mouth daily . sertraline (ZOLOFT) 50 MG tablet Take 50 mg by mouth daily . No current facility-administered medications for this visit. Patient Instructions Take Tylenol and or Motrin as needed. Stay hydrated. If symptoms worsen, you should be re-evaluated here, ER or your doctors office. Viral Infections: Care Instructions Your Care Instructions You don't feel well, but it's not clear what's causing it. You may have a viral infection. Viruses cause many illnesses, such as the common cold, influenza, fever, rashes, and the diarrhea, nausea, and vomiting that are often called stomach flu. You may wonder if antibiotic medicines could make you feel better. But antibiotics only treat infections caused by bacteria. They don't work on viruses. The good news is that viral infections usually aren't serious. Most will go away in a few days without medical treatment. In the meantime, there are a few things you can do to make yourself more comfortable. Follow-up care is a hurtado part of your treatment and safety. Be sure to make and go to all appointments, and call your doctor if you are having problems. It's also a good idea to know your test results and keep a list of the medicines you take. How can you care for yourself at home? Get plenty of rest if you feel tired. Take an pxyc-kfz-kmcnoio pain medicine if needed, such as acetaminophen (Tylenol), ibuprofen (Advil, Motrin), or naproxen (Aleve). Read and follow all instructions on the label. Be careful when taking yhxn-bws-dafyahq cold or flu medicines and Tylenol at the same time. Many of these medicines have acetaminophen, which is Tylenol. Read the labels to make sure that you are not taking more than the recommended dose. Too much acetaminophen (Tylenol) can be harmful. Drink plenty of fluids. If you have kidney, heart, or liver disease and have to limit fluids, talk with your doctor before you increase the amount of fluids you drink. Stay home from work, school, and other public places while you have a fever. When should you call for help? Call 911 anytime you think you may need emergency care. For example, call if: You have severe trouble breathing. You passed out (lost consciousness). Call your doctor now or seek immediate medical care if: You seem to be getting much sicker. You have a new or higher fever. You have blood in your stools. You have new belly pain, or your pain gets worse. You have a new rash. Watch closely for changes in your health, and be sure to contact your doctor if: You start to get better and then get worse. You do not get better as expected. Where can you learn more? Log into your personal health record on https://Motomotivest.WeDeliver and enter L906 in the Education box to learn more about Viral Infections: Care Instructions. Current as of: November 20, 2020 Content Version: 13.0 Ryonet. Care instructions adapted under license by your healthcare professional. If you have questions about a medical condition or this instruction, always ask your healthcare professional. [employer]onet disclaims any warranty or liability for your use of this information. documented in this encounter [facility] 02-21-2021 Instructions Chio Blanco CNP - 02/21/2021 1:36 PM EDT Images from the original note were not included. Take Tylenol and or Motrin as needed. Stay hydrated. If symptoms worsen, you should be re-evaluated here, ER or your doctors office. Viral Infections: Care Instructions Your Care Instructions You don't feel well, but it's not clear what's causing it. You may have a viral infection. Viruses cause many illnesses, such as the common cold, influenza, fever, rashes, and the diarrhea, nausea, and vomiting that are often called stomach flu. You may wonder if antibiotic medicines could make you feel better. But antibiotics only treat infections caused by bacteria. They don't work on viruses. The good news is that viral infections usually aren't serious. Most will go away in a few days without medical treatment. In the meantime, there are a few things you can do to make yourself more comfortable. Follow-up care is a hurtado part of your treatment and safety. Be sure to make and go to all appointments, and call your doctor if you are having problems. It's also a good idea to know your test results and keep a list of the medicines you take. How can you care for yourself at home? Get plenty of rest if you feel tired. Take an lxmr-hbi-qxwuisl pain medicine if needed, such as acetaminophen (Tylenol), ibuprofen (Advil, Motrin), or naproxen (Aleve). Read and follow all instructions on the label. Be careful when taking ciog-npt-syizydh cold or flu medicines and Tylenol at the same time. Many of these medicines have acetaminophen, which is Tylenol. Read the labels to make sure that you are not taking more than the recommended dose. Too much acetaminophen (Tylenol) can be harmful. Drink plenty of fluids. If you have kidney, heart, or liver disease and have to limit fluids, talk with your doctor before you increase the amount of fluids you drink. Stay home from work, school, and other public places while you have a fever. When should you call for help? Call 911 anytime you think you may need emergency care. For example, call if: You have severe trouble breathing. You passed out (lost consciousness). Call your doctor now or seek immediate medical care if: You seem to be getting much sicker. You have a new or higher fever. You have blood in your stools. You have new belly pain, or your pain gets worse. You have a new rash. Watch closely for changes in your health, and be sure to contact your doctor if: You start to get better and then get worse. You do not get better as expected. Where can you learn more? Log into your personal health record on https://Motomotivest.WeDeliver and enter L906 in the Education box to learn more about Viral Infections: Care Instructions. Current as of: November 20, 2020 Content Version: 13.0 Ryonet. Care instructions adapted under license by your healthcare professional. If you have questions about a medical condition or this instruction, always ask your healthcare professional. Ryonet disclaims any warranty or liability for your use of this information. documented in this encounter [facility] 01-09-2021 Emergency departm ent Note Emergency Department Report [facility] Service Date:.01/09/21 PCP: Tasha Mehta Chief Complaint Patient presents with Back Pain Patient complains of left lower back pain that radiates to middle lower back that which started a week and half ago. Patient states she does lift her furniture and toddler daily and does not know if she pulled a muscle. Denies urinary complaints, loss of bowel and bladder. Tried otc creams without relief. ONEAL Simon is a 25 y.o. female presents to the ED today due to Back pain 1.5 weeks. Patient denies any direct trauma she states that she has some pain with movement when she picks up her 3-year-old toddler. He states that she is to catch twice a week due to cleaning and it makes her symptoms worse. Patient denies bowel bladder dysfunction denies weakness. Patient denies neck pain denies cough denies shortness of breath. Patient denies vision difficulties. Review of Systems: Review of Systems Musculoskeletal: Positive for back pain. All other systems reviewed and are negative. Past Medical History: Past Medical History: Diagnosis Date Anxiety Hypothyroidism Migraine Panic attack PTSD (post-traumatic stress disorder) Past Surgical History: Past Surgical History: Procedure Laterality Date EXCISION HIDRADENITIS AXILLARY 12/26/2019 Surgeon: Bruno Thompson DO; Location: [facility] OR TREATMENT INDUCED W/ DILATION & EVACUATION 2014 THYROIDECTOMY Allergies: Allergies Allergen Reactions Coconut Oil RASH Medications: Patient's Medications New Prescriptions CYCLOBENZAPRINE 10 MG TABLET Take 1 tablet by mouth 3 times daily as needed for Muscle spasms. Previous Medications ACETAMINOPHEN 500 MG TABLET Take 1,000 mg by mouth every 6 hours as needed for Pain. IBUPROFEN 600 MG TAB TABLET Take 600 mg by mouth Every 6 hours as needed. 06/11 1-20 MG-MCG TABLET LEVOTHYROXINE 75 MCG TAB TABLET Take 100 mcg by mouth daily. LEVOTHYROXINE 88 MCG TABLET 1 tablet on an empty stomach in the morning NON-FORMULARY control-does not know the name PROMETHAZINE 25 MG TAB TABLET TAKE 1 TABLET BY MOUTH NEEDED EVERY 6-8 HOUR FOR NAUSEA OR VOMITING RA HI CHELSEA 500-200 MG-UNIT TAB TABLET take 1 tablet by mouth three times a day with meals SERTRALINE 25 MG TABLET Modified Medications No medications on file Discontinued Medications No medications on file Family History: History reviewed. No pertinent family history. Social History: Social History Socioeconomic History Marital status: Single Spouse name: Not on file Number of children: Not on file Years of education: Not on file Highest education level: Not on file Occupational History Not on file Tobacco Use Smoking status: Former Smoker Smokeless tobacco: Never Used Tobacco comment: quit 2018 Vaping Use Vaping Use: Never used Substance and Sexual Activity Alcohol use: Not Currently Drug use: Not Currently Sexual activity: Not on file Comment: LMP 12/17/19 Other Topics Concern Not on file Social History Narrative Not on file Social Determinants of Health Financial Resource Strain: Difficulty of Paying Living Expenses: Food Insecurity: Worried About Running Out of Food in the Last Year: Ran Out of Food in the Last Year: Transportation Needs: Lack of Transportation (Medical): Lack of Transportation (Non-Medical): Physical Activity: Days of Exercise per Week: Minutes of Exercise per Session: Stress: Feeling of Stress : Social Connections: Frequency of Communication with Friends and Family: Frequency of Social Gatherings with Friends and Family: Attends Jainism Services: Active Member of Clubs or Organizations: Attends Club or Organization Meetings: Marital Status: Intimate Partner Violence: Fear of Current or Ex-Partner: Emotionally Abused: Physically Abused: Sexually Abused: Physical Exam: Physical Exam Constitutional: Appearance: Normal appearance. HENT: Head: Normocephalic and atraumatic. Right Ear: External ear normal. Left Ear: External ear normal. Nose: Nose normal. Mouth/Throat: Mouth: Mucous membranes are moist. Pharynx: Oropharynx is clear. Eyes: Conjunctiva/sclera: Conjunctivae normal. Pupils: Pupils are equal, round, and reactive to light. Cardiovascular: Rate and Rhythm: Normal rate and regular rhythm. Pulses: Normal pulses. Pulmonary: Effort: Pulmonary effort is normal. No respiratory distress. Breath sounds: Normal breath sounds. No wheezing. Abdominal: General: Abdomen is flat. Bowel sounds are normal. There is no distension. Palpations: Abdomen is soft. Tenderness: There is no abdominal tenderness. There is no guarding or rebound. Musculoskeletal: General: Normal range of motion. Cervical back: Normal range of motion and neck supple. Comments: Lower lumbar tenderness to palpation Skin: General: Skin is warm and dry. Capillary Refill: Capillary refill takes less than 2 seconds. Neurological: General: No focal deficit present. Mental Status: She is alert and oriented to person, place, and time. Mental status is at baseline. Cranial Nerves: No cranial nerve deficit. Sensory: No sensory deficit. Motor: No weakness. Coordination: Coordination normal. Psychiatric: Mood and Affect: Mood normal. Behavior: Behavior normal. Vital Signs During ED Visit Patient Vitals for the past 24 hrs: BP Temp Temp src Pulse Resp SpO2 01/09/21 1248 118/76 98.1 F (36.7 C) Oral 98 16 97 % Differential Diagnosis: Strain, muscle spasm Orders/Results: Orders Placed This Encounter XR SPINE LUMBOSACRAL 5 VIEWS ketorolac (TORADOL) injection 15 mg cyclobenzaprine 10 MG tablet URINALYSIS, MACRO HCG QUALITATIVE, URINE Results for orders placed or performed during the hospital encounter of 01/09/21 URINALYSIS, MACRO Result Value Ref Range COLOR, URINE YELLOW YELLOW APPEARANCE, URINE CLEAR CLEAR SPECIFIC GRAVITY, URINE 1.010 1.010 - 1.025 PH URINE 7.0 5.0 - 7.0 PROTEIN, URINE NEGATIVE NEGATIVE mg/dl GLUCOSE, URINE NEGATIVE NEGATIVE mg/dl KETONES, URINE NEGATIVE NEGATIVE mg/dl BILIRUBIN, URINE NEGATIVE NEGATIVE BLOOD, URINE DIPSTICK NEGATIVE NEGATIVE NITRITES, URINE NEGATIVE NEGATIVE UROBILINOGEN, URINE 0.2 0.2 - 1.0 E.U./dL LEUKOCYTE ESTERASE, URINE NEGATIVE NEGATIVE HCG QUALITATIVE, URINE Result Value Ref Range HCG, QUALITATIVE, URINE NEGATIVE Radiographic Imaging XR SPINE LUMBOSACRAL 5 VIEWS Final Result IMPRESSION: No significant bony abnormalities. Moderate Sedation Procedure: No Procedures: Procedures ED Summary: Appears to represent muscle spasm. Patient be treated symptomatically with follow-upis advised patient return for changing symptoms, worsening symptoms, any other complaints. Clinical Impression: 1. Strain of lumbar region, initial encounter No follow-ups on file. New Prescriptions CYCLOBENZAPRINE 10 MG TABLET Take 1 tablet by mouth 3 times daily as needed for Muscle spasms. Discontinued Medications No medications on file An After Visit Summary was printed and given to the patient with above information. . . Jaxon Weston MD 01/09/21 1414 documented in this encounter [facility] 01-05-2021 Instructions Chio Blanco, ELECTRONIC DATA INTERCHANGE SPECIALIST - 01/05/2021 11:25 AM EDT Images from the original note were not included. I am treating your infection of the toe with Keflex. Take Tylenol and or Motrin as needed. Stay hydrated. If symptoms worsen, you should be re-evaluated here, ER or your doctors office. Go to the ER for further evaluation of the flank pain. Your urine results are on the back of this packet. Ingrown Toenail: Care Instructions Your Care Instructions An ingrown toenail often occurs because a nail is not trimmed correctly or because shoes are too tight. An ingrown nail can cause an infection. If your toe is infected, your doctor may prescribe antibiotics. Most ingrown toenails can be treated at home. You should trim toenails straight across, so the ends of the nail grow over the skin and not into it. Good nail care can prevent ingrown toenails. Follow-up care is a hurtado part of your treatment and safety. Be sure to make and go to all appointments, and call your doctor if you are having problems. It's also a good idea to know your test results and keep a list of the medicines you take. How can you care for yourself at home? Trim the nails straight across. Leave the corners a little longer so they do not cut into the skin. To do this when you have an ingrown nail: ? Soak your foot in warm water for about 15 minutes to soften the nail. ? Wedge a small piece of wet cotton under the corner of the nail to cushion the nail and lift it slightly. This keeps it from cutting the skin. ? Repeat daily until the nail has grown out and can be trimmed. Do not use manicure scissors to dig under the ingrown nail. You might stab your toe, which could get infected. Do not trim your toenails too short. Check with your doctor before trimming your own toenails if you have been diagnosed with diabetes or peripheral arterial disease. These conditions increase the risk of an infection, because you may have decreased sensation in your toes and cut yourself without knowing it. Wear roomy, comfortable shoes. If your doctor prescribed antibiotics, take them as directed. Do not stop taking them just because you feel better. You need to take the full course of antibiotics. When should you call for help? Call your doctor now or seek immediate medical care if: You have signs of infection, such as: ? Increased pain, swelling, warmth, or redness. ? Red streaks leading from the toe. ? Pus draining from the toe. ? A fever. Watch closely for changes in your health, and be sure to contact your doctor if: You do not get better as expected. Where can you learn more? Log into your personal health record on?https://Standard Treasury.WeDeliver? and enter?R135?in the Education box to learn more about Ingrown Toenail: Care Instructions. Current as of: July 23, 2020 Content Version: . Ryonet. Care instructions adapted under license by your healthcare professional. If you have questions about a medical condition or this instruction, always ask your healthcare professional. [employer]onet disclaims any warranty or liability for your use of this information. Flank Pain: Care Instructions Your Care Instructions Flank pain is pain on the side of the back just below the rib cage and above the waist. It can be on one or both sides. Flank pain has many possible causes, including a kidney stone, a urinary tract infection, or back strain. Flank pain may get better on its own. But don't ignore new symptoms, such as fever, nausea and vomiting, urination problems, pain that gets worse, and dizziness. These may be signs of a more serious problem. You may have to have tests or other treatment. Follow-up care is a hurtado part of your treatment and safety. Be sure to make and go to all appointments, and call your doctor if you are having problems. It's also a good idea to know your test results and keep a list of the medicines you take. How can you care for yourself at home? Rest until you feel better. Take pain medicines exactly as directed. ? If the doctor gave you a prescription medicine for pain, take it as prescribed. ? If you are not taking a prescription pain medicine, ask your doctor if you can take an rmhy-txd-qtxfgoj pain medicine, such as acetaminophen (Tylenol), ibuprofen (Advil, Motrin), or naproxen (Aleve). Read and follow all instructions on the label. If your doctor prescribed antibiotics, take them as directed. Do not stop taking them just because you feel better. You need to take the full course of antibiotics. To apply heat, put a warm water bottle, a heating pad set on low, or a warm cloth on the painful area. Do not go to sleep with a heating pad on your skin. To prevent dehydration, drink plenty of fluids. Choose water and other clear liquids until you feel better. If you have kidney, heart, or liver disease and have to limit fluids, talk with your doctor before you increase the amount of fluids you drink. When should you call for help? Call your doctor now or seek immediate medical care if: Your flank pain gets worse. You have new symptoms, such as fever, nausea, or vomiting. You have symptoms of a urinary problem. For example: ? You have blood or pus in your urine. ? You have chills or body aches. ? It hurts to urinate. ? You have groin or belly pain. Watch closely for changes in your health, and be sure to contact your doctor if you do not get better as expected. Where can you learn more? Log into your personal health record on?https://Motomotivest.K-MOTION Interactive.BioTalk Technologies? and enter?S191?in the Education box to learn more about Flank Pain: Care Instructions. Current as of: March 10, 2020 Content Version: 12.9 Ryonet. Care instructions adapted under license by your healthcare professional. If you have questions about a medical condition or this instruction, always ask your healthcare professional. [employer] disclaims any warranty or liability for your use of this information. documented in [facility] [facility] 01[facility]21 History of Presen t illness Narrative Images from the original note were not included. Patient Name: [facility] Location: [place] [address] [address] [facility] [address] Date Of : Date Of Visit: 1995 01/06/2021 MRN# Provider: [id number] Chio Blanco CNP Chief Complaint Patient presents with Wound Check infection of toe from hangnail removal x 2 weeks ago, pt has a hx of mrsa. Urinary Tract Infection flank pain x last night that is severe . Assessment & Plan 1. Ingrown toenail of left foot with infection cephALEXin (KEFLEX) 500 MG capsule 2. Flank pain POC , Urine POC Urinalysis Dipstick,Auto UC No follow-ups on file. Medical Decision Making 1. I will treat the Patient with keflex for infection of ingrown toenail 2. Encouraged epsom salt soaks for her foot 3. Advised tylenol/motrin as needed 4. Patient was referred to ER for her flank pain as her UA dip was negative for cystitis and exam is consistent for kidney stone Additional Clinical Comments Discussed over the counter medications for symptomatic management and side effects of medications. Recommended taking all medications with food and to stop medications if they develop any signs of an allergic reaction. Educated patient and/or guardian about signs and symptoms that would warrant further immediate evaluation. Recommended that they should return to urgent care, make an appointment with their family physician, or go to the emergency room if symptoms persist or get acutely worse. Recommended follow up within the next week with their PCP or to get established with a PCP soon in order to follow up appropriately. Subjective 25 y.o. female presents with Wound Check (infection of toe from hangnail removal x 2 weeks ago, pt has a hx of mrsa.) and Urinary Tract Infection (flank pain x last night that is severe . ) Toe Pain The incident occurred more than 1 week ago. The incident occurred at home. There was no injury mechanism. The pain is present in the left toes. The pain is moderate. The pain has been worsening since onset. Pertinent negatives include no inability to bear weight, loss of motion, loss of sensation, muscle weakness, numbness or tingling. She reports no foreign bodies present. The symptoms are aggravated by palpation. Flank Pain This is a new problem. The current episode started today. The problem occurs constantly. The problem is unchanged. Pain location: right flank. The pain does not radiate. The pain is the same all the time. Pertinent negatives include no abdominal pain, bladder incontinence, bowel incontinence, dysuria, fever, leg pain, numbness, paresthesias, pelvic pain, perianal numbness or tingling. Review Of Systems Review of Systems Constitutional: Negative for chills and fever. Gastrointestinal: Negative for abdominal pain, bowel incontinence, diarrhea, nausea and vomiting. Genitourinary: Positive for flank pain, frequency and urgency. Negative for bladder incontinence, difficulty urinating, dysuria, pelvic pain and vaginal discharge. Neurological: Negative for tingling, numbness and paresthesias. Medical History Past Medical History: Diagnosis Date Disease of thyroid gland MRSA (methicillin resistant staph aureus) culture positive Past Surgical History: Procedure Laterality Date mrsa removal THYROIDECTOMY There is no problem list on file for this patient. Social History Social History Tobacco Use Smoking status: Never Smoker Smokeless tobacco: Never Used Vaping Use Vaping Use: Never used Substance Use Topics Alcohol use: Never Drug use: Never Family History History reviewed. No pertinent family history. Objective Physical Exam BP 108/75 Pulse 77 Temp 98.5 F (36.9 C) (Tympanic) Resp 16 Wt 53.1 kg (117 lb) SpO2 99% Vision/Hearing Exam:No exam data present Physical Exam Vitals and nursing note reviewed. Constitutional: General: She is not in acute distress. Appearance: She is well-developed. She is not diaphoretic. HENT: Head: Normocephalic and atraumatic. Right Ear: External ear normal. Left Ear: External ear normal. Eyes: General: Right eye: No discharge. Left eye: No discharge. Conjunctiva/sclera: Conjunctivae normal. Pulmonary: Effort: Pulmonary effort is normal. No respiratory distress. Abdominal: General: There is no distension. Palpations: Abdomen is soft. Tenderness: There is no abdominal tenderness. There is right CVA tenderness. Musculoskeletal: General: Normal range of motion. Cervical back: Normal range of motion. Feet: Feet: Comments: Ingrown toenail with erythema and mild edema to the medial aspect of the left great toe Skin: Findings: Erythema present. No rash. Neurological: General: No focal deficit present. Mental Status: She is alert. Psychiatric: Behavior: Behavior normal. Thought Content: Thought content normal. Judgment: Judgment normal. Procedure Notes Procedures Results Recent Results (from the past 168 hour(s)) POC , Urine Collection Time: 01/05/21 11:11 AM Result Value Ref Range POC Preg Test, Ur Negative Negative Internal Control Pass POC Urinalysis Dipstick,Auto UC Collection Time: 01/05/21 11:11 AM Result Value Ref Range POC Color, Urine Yellow Yellow, Light Yellow, Dark Yellow Clarity, UA Clear Clear Glucose, UA Negative Normal, Negative mg/dL Bilirubin, UA Negative Negative Ketones, UA Negative Negative mg/dL Spec Grav, UA 1.015 1.005 - 1.025 Blood, UA Negative Negative pH, UA 6.5 5.0 - 7.0 Protein, UA Negative Negative mg/dL Urobilinogen, UA 0.2 <2.0, 0.2, Normal, Negative, 1.0, 2.0, <1.0 mg/dL Nitrite, UA Negative Negative Leukocyte Esterase, UA Negative Negative No orders to display Orders Placed This Visit Orders Placed This Encounter Procedures POC , Urine POC Urinalysis Dipstick,Auto UC Medication List At End Of Visit Current Outpatient Medications Medication Sig Dispense Refill estradiol cypionate (DEPO-ESTRADIOL) 5 mg/mL injection Inject into the shoulder, thigh, or buttocks every 28 days . levothyroxine (SYNTHROID, LEVOTHROID) 100 MCG tablet Take 1 tablet by mouth daily . sertraline (ZOLOFT) 50 MG tablet Take 50 mg by mouth daily . cephALEXin (KEFLEX) 500 MG capsule Take 1 (one) capsule (500 mg total) by mouth 3 (three) times a day for 10 days . 30 capsule 0 No current facility-administered medications for this visit. Patient Instructions I am treating your infection of the toe with Keflex. Take Tylenol and or Motrin as needed. Stay hydrated. If symptoms worsen, you should be re-evaluated here, ER or your doctors office. Go to the ER for further evaluation of the flank pain. Your urine results are on the back of this packet. Ingrown Toenail: Care Instructions Your Care Instructions An ingrown toenail often occurs because a nail is not trimmed correctly or because shoes are too tight. An ingrown nail can cause an infection. If your toe is infected, your doctor may prescribe antibiotics. Most ingrown toenails can be treated at home. You should trim toenails straight across, so the ends of the nail grow over the skin and not into it. Good nail care can prevent ingrown toenails. Follow-up care is a hurtado part of your treatment and safety. Be sure to make and go to all appointments, and call your doctor if you are having problems. It's also a good idea to know your test results and keep a list of the medicines you take. How can you care for yourself at home? Trim the nails straight across. Leave the corners a little longer so they do not cut into the skin. To do this when you have an ingrown nail: ? Soak your foot in warm water for about 15 minutes to soften the nail. ? Wedge a small piece of wet cotton under the corner of the nail to cushion the nail and lift it slightly. This keeps it from cutting the skin. ? Repeat daily until the nail has grown out and can be trimmed. Do not use manicure scissors to dig under the ingrown nail. You might stab your toe, which could get infected. Do not trim your toenails too short. Check with your doctor before trimming your own toenails if you have been diagnosed with diabetes or peripheral arterial disease. These conditions increase the risk of an infection, because you may have decreased sensation in your toes and cut yourself without knowing it. Wear roomy, comfortable shoes. If your doctor prescribed antibiotics, take them as directed. Do not stop taking them just because you feel better. You need to take the full course of antibiotics. When should you call for help? Call your doctor now or seek immediate medical care if: You have signs of infection, such as: ? Increased pain, swelling, warmth, or redness. ? Red streaks leading from the toe. ? Pus draining from the toe. ? A fever. Watch closely for changes in your health, and be sure to contact your doctor if: You do not get better as expected. Where can you learn more? Log into your personal health record on?https://[employer]? and enter?R135?in the Education box to learn more about Ingrown Toenail: Care Instructions. Current as of: July 23, 2020 Content Version: 04.30 [employer]. Care instructions adapted under license by your healthcare professional. If you have questions about a medical condition or this instruction, always ask your healthcare professional. [employer] disclaims any warranty or liability for your use of this information. Flank Pain: Care Instructions Your Care Instructions Flank pain is pain on the side of the back just below the rib cage and above the waist. It can be on one or both sides. Flank pain has many possible causes, including a kidney stone, a urinary tract infection, or back strain. Flank pain may get better on its own. But don't ignore new symptoms, such as fever, nausea and vomiting, urination problems, pain that gets worse, and dizziness. These may be signs of a more serious problem. You may have to have tests or other treatment. Follow-up care is a hurtado part of your treatment and safety. Be sure to make and go to all appointments, and call your doctor if you are having problems. It's also a good idea to know your test results and keep a list of the medicines you take. How can you care for yourself at home? Rest until you feel better. Take pain medicines exactly as directed. ? If the doctor gave you a prescription medicine for pain, take it as prescribed. ? If you are not taking a prescription pain medicine, ask your doctor if you can take an rprt-wpt-[id number] pain medicine, such as acetaminophen (Tylenol), ibuprofen (Advil, Motrin), or naproxen (Aleve). Read and follow all instructions on the label. If your doctor prescribed antibiotics, take them as directed. Do not stop taking them just because you feel better. You need to take the full course of antibiotics. To apply heat, put a warm water bottle, a heating pad set on low, or a warm cloth on the painful area. Do not go to sleep with a heating pad on your skin. To prevent dehydration, drink plenty of fluids. Choose water and other clear liquids until you feel better. If you have kidney, heart, or liver disease and have to limit fluids, talk with your doctor before you increase the amount of fluids you drink. When should you call for help? Call your doctor now or seek immediate medical care if: Your flank pain gets worse. You have new symptoms, such as fever, nausea, or vomiting. You have symptoms of a urinary problem. For example: ? You have blood or pus in your urine. ? You have chills or body aches. ? It hurts to urinate. ? You have groin or belly pain. Watch closely for changes in your health, and be sure to contact your doctor if you do not get better as expected. Where can you learn more? Log into your personal health record on?https://[employer]? and enter?S191?in the Education box to learn more about Flank Pain: Care Instructions. Current as of: March 10, 2020 Content Version: 12.9 4321-2224 [employer]. Care instructions adapted under license by your healthcare professional. If you have questions about a medical condition or this instruction, always ask your healthcare professional. [employer] disclaims any warranty or liability for your use of this information. documented in this encounter [facility] Evaluation note Diagnosis Ingrown toenail of left foot with infection- Primary Flank pain Abdominal pain, unspecified site [facility] Viral illness- Primary Unspecified viral infection, in conditions classified elsewhere and of unspecified site Exposure to 2019 novel coronavirus [facility] Diagnosis Medication monitoring encounter- Primary Encounter for therapeutic drug monitoring Lumbar radiculopathy Thoracic or lumbosacral neuritis or radiculitis, unspecified Chronic pain syndrome [facility] Lower abdominal pain- Primary Abdominal pain, other specified site Non-intractable vomiting with nausea, unspecified vomiting type Slow transit constipation [facility] Diagnosis Dysuria- Primary [facility] Diagnosis Acute cystitis without hematuria- Primary [facility] Diagnosis Strain of lumbar region, initial encounter- Primary [facility] Diagnosis Acute midline low back pain without sciatica- Primary Left lower quadrant abdominal pain Right hip pain Pain in joint, pelvic region and thigh [facility] Diagnosis Closed fracture of coccyx, initial encounter- Primary [facility] Diagnosis Right hip pain Pain in joint, pelvic region and thigh [facility] Diagnosis 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 Fx sacrum/coccyx-closed, with routine healing, subsequent encounter [facility] Diagnosis Acute pain of right shoulder- Primary Closed fracture of sacrum and coccyx, initial encounter Smoker Tobacco use disorder [facility] Diagnosis Closed fracture of sacrum and coccyx, initial encounter- Primary [facility] Diagnosis Closed fracture of sacrum and coccyx, initial encounter [facility] Diagnosis Closed fracture of sacrum and coccyx, initial encounter [facility] Diagnosis Closed fracture of sacrum and coccyx, initial encounter- Primary [facility] Diagnosis Closed fracture of sacrum and coccyx, initial encounter- Primary 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, subsequent encounter [facility]* Diagnosis Accidental fall on or from stairs or steps, initial encounter Lumbar spondylosis- Primary Lumbosacral spondylosis without myelopathy [facility] Diagnosis Lumbar spondylosis- Primary Lumbosacral spondylosis without myelopathy [facility]* Diagnosis Lumbar spondylosis Lumbosacral spondylosis without myelopathy [facility]* Diagnosis Facet arthropathy- Primary Spondylosis of unspecified site without mention of myelopathy Myofascial pain Mylagia and myositis, unspecified Chronic pain syndrome Sacroiliitis Sacroiliitis, not elsewhere classified Right hip pain Pain in joint, pelvic region and thigh [facility]* Diagnosis Closed fracture of sacrum and coccyx, initial encounter Closed fracture of sacrum and coccyx, initial encounter Closed fracture of sacrum and coccyx, initial encounter documented [facility] noteNo assessment information availableSelect [facility] Work Phone: Hospital Discharge instructions* Attachments The following attachments cannot be sent through Care Everywhere. * Back: Strain ([place]) [facility]* Attachments The following attachments cannot be sent through Care Everywhere. * Coccyx Injury ([place]) [facility]* Attachments The following attachments cannot be sent through Care Everywhere. * Dysuria ([place]) [facility] ([facility])* Consultation (Routine) - New Request Specialty Diagnoses / Procedures Referred By Contac t Referred To Contact Gastroenterology Diagnoses Lower abdominal pain Non-intractable vomiting with nausea, unspecified vomiting type Slow transit constipation Zelalem Hampton DO [address] [place] [address] Wander Marsh Jr., DO [address] [place] [address] Referral ID Status Reason Start Date Expiration Date V isits Requested Visits Authorized [id number] New Request 05/30/2021 06/24/2022 1 1 [facility] for referral (narrative)* Consultation (Routine) - New Request Specialty Diagnoses / Procedures Referred By Contac t Referred To Contact Internal Medicine Diagnoses Closed fracture of sacrum and coccyx, initial encounter Marylin Brink MD [address] [place] [address] Referral ID Status Reason Start Date Expiration Date V isits Requested Visits Authorized [id number] New Request 11/13/2021 12/08/2022 1 1 * Adjunctive Therapy (Routine) - Auth Not Needed Specialty Diagnoses / Procedures Referred By Contac t Referred To Contact Physical Therapy Diagnoses Closed fracture of sacrum and coccyx, initial encounter Marylin Brink MD [facility] [place] [address] [facility] [address] [address] Referral ID Status Reason Start Date Expiration Date V isits Requested Visits Authorized [id number] Auth Not Needed 11/13/2021 12/08/2022 100 100 * Consultation (Routine) - New Request Specialty Diagnoses / Procedures Referred By Contac t Referred To Contact Multispecialty Diagnoses Closed fracture of sacrum and coccyx, initial encounter Marylin Brink MD [address] [place] [address] Referral ID Status Reason Start Date Expiration Date V isits Requested Visits Authorized [id number] New Request 11/13/2021 12/08/2022 1 1 [facility] for referral (narrative)* Consultation (Routine) - New Request Specialty Diagnoses / Procedures Referred By Contac t Referred To Contact Multispecialty Diagnoses Closed fracture of sacrum and coccyx, initial encounter Marylin Brink MD [address] [place] [id number] Arlene Titus MD [address] [place] [id number] Referral ID Status Reason Start Date Expiration Date V isits Requested Visits Authorized [id number] New Request 11/26/2021 12/21/2022 1 1 [facility] for referral (narrative)* Consultation (Routine) - New Request Specialty Diagnoses / Procedures Referred By Contac t Referred To Contact Pediatrics Diagnoses 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, subsequent encounter Marylin Brink MD [address] [place] [address] Referral ID Status Reason Start Date Expiration Date V isits Requested Visits Authorized [id number] New Request 12/10/2021 01/04/2023 1 1 * Consultation (Routine) - New Request Specialty Diagnoses / Procedures Referred By Vince love Referred To Contact Physical Therapy Diagnoses 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 Abscess Rbuin Troncoso, DO [address] [place] [address] Iraida Hudson, DO [address] [place] [address] Status Reason Specialty Diagnoses / Procedures Referred By Contact Referred To Contact New Request General Surgery Diagnoses Sebaceous cyst of left axilla Rubin Troncoso, DO [address] [place] [address] Bruno Thompson, DO [address] [place] [address] Status Reason Specialty Diagnoses / Procedures Referred By Contact Referred To Contact New Request Family Medicine Diagnoses Sebaceous cyst of left axilla Rubin Troncoso, DO [address] [place] [address] Status Reason Specialty Diagnoses / Procedures Referred By Contact Referred To Contact New Request Podiatry Diagnoses Foreign body in right foot, initial encounter Rubin Troncoso, DO [address] [place] [address] Swetha Rodriguez, [address] [address] Status Reason Specialty Diagnoses / Procedures Referred By Contact Referred To Contact Closed Magnetic Resonan ce Imaging Diagnoses Transient visual loss of left eye Procedures MRI BRAIN WITHOUT CONTRAST MT MRI BRAIN Tasha Mehta MD [address] [place] [address] Amadeo Buc Mri [address] [place] [address] Specialty Diagnoses / Procedures Referred By Contac t Referred To Contact Physical Therapy Diagnoses Lumbar radiculopathy Chronic pain syndrome Mary Ellen Valles, SPECIAL PROCEDURES TECH-ELECTRONIC DATA INTERCHANGE SPECIALIST [address] [place] [address] Amadeo Buc [facility] [address] [place] [address] Referral ID Status Reason Start Date Expiration Date V isits Requested Visits Authorized [id number] New Request 04/01/2021 04/26/2022 1 1 Scheduling Instructions . 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 Fx sacrum/coccyx-closed, with routine healing, subsequent encounter Procedures MRI SPINE LUMBAR WITHOUT CONTRAST MT MRI, LUMBAR SPINE Tasha Mehta MD [address] [place] [address] Amadeo Buc Mri [address] [place] [address] Referral ID Status Reason Start Date Expiration Date Visits Re quested Visits Authorized [id number] Closed 10/13/2021 11/07/2022 1 1 Specialty Diagnoses / Procedures Referred By Contac t Referred To Contact Magnetic Resonance Imaging Diagnoses Closed fracture of sacrum and coccyx, initial encounter Procedures MRI SPINE LUMBAR WITHOUT CONTRAST MT MRI, LUMBAR SPINE Marylin Brink MD [address] [place] [address] [facility] Mri [address] [place] [address] Referral ID Status Reason Start Date Expiration Date Visits Re quested Visits Authorized [id number] Closed 12/01/2021 12/26/2022 1 1 Specialty Diagnoses / Procedures Referred By Contac t Referred To Contact Magnetic Resonance Imaging Diagnoses Closed fracture of sacrum and coccyx, initial encounter Procedures MRI SACRUM WITHOUT CONTRAST MT MRI, PELVIS, W/O CONTRAST Marylin Brink MD [address] [place] [address] Amadeo Buc Mri [address] [place] [address] Referral ID Status Reason Start Date Expiration Date Visits Re quested Visits Authorized [id number] Closed 12/01/2021 12/26/2022 1 1 Specialty Diagnoses / Procedures Referred By Contac t Referred To Contact Diagnoses Lumbar spondylosis Procedures [facility] Arlene Titus MD [address] [place] [address] Referral ID Status Reason Start Date Expiration Date V isits Requested Visits Authorized [id number] New Request 01/29/2022 02/23/2023 1 1 Specialty Diagnoses / Procedures Referred By Contac t Referred To Contact Diagnoses Facet arthropathy Sacroiliitis Procedures MRI HIP RIGHT WITHOUT CONTRAST MT MRI LOWER EXTREM JT, W/O CONTRAST Diamond Garay MD [address] [place] [address] Referral ID Status Reason Start Date Expiration Date V isits Requested Visits Authorized [id number] Auth Not Needed 02/03/2022 02/28/2023 1 1 Discharge Instructions * Attachments The following attachments cannot be sent through Care Everywhere. * , Adapting to: First Trimester ([place]) documented in this encounter* Instructions* Rubin Troncoso, - 09/16/2018 Thank you for allowing us to be involved in your care today. Please follow up as discussed during your stay. This information is included in your discharge paperwork. Appropriate follow up is essential in your continued care after today's visit. If you had any diagnostic studies (Labs, X-rays, CT-scan , Ultrasound or Cultures) have your Primary Care Physician (PCP) review them with you since there may be results that require further follow up or investigation. Return to the Emergency Department at any point with worsening conditions or concerns. The physician and staff of the Emergency Department would like to thank you for choosing our facility for your health care needs. Our goal is to provide exceptional service. You may be receiving a survey in the mail following your visit. Because your feedback is very important to us, we hope you will take the time to complete and return the survey. If for any reason, you feel that you cannot rateus Very Good or 5 for the service you received today, please let us know prior to your discharge. Please follow up with your family doctor or one of your choosing. You may find a provider through the [facility] Referral Service by calling [phone] or by visiting [email or web address] Thank You for choosing the [facility] Emergency Department! * Attachments The following attachments cannot be sent through Care Everywhere. * Epidermoid Cyst (Sebaceous Cyst), No Infection ([place]) documented in this encounter* Instructions* Rubin Troncoso, - 05/13/2019 Thank you for allowing us to be involved in your care today. Please follow up as discussed during your stay. This information is included in your discharge paperwork. Appropriate follow up is essential in your continued care after today's visit. If you had any diagnostic studies (Labs, X-rays, CT-scan , Ultrasound or Cultures) have your Primary Care Physician (PCP) review them with you since there may be results that require further follow up or investigation. Return to the Emergency Department at any point with worsening conditions or concerns. The physician and staff of the Emergency Department would like to thank you for choosing our facility for your health care needs. Our goal is to provide exceptional service. You may be receiving a survey in the mail following your visit. Because your feedback is very important to us, we hope you will take the time to complete and return the survey. If for any reason, you feel that you cannot rateus Very Good or 5 for the service you received today, please let us know prior to your discharge. Please follow up with your family doctor or one of your choosing. You may find a provider through the [facility] [facility]ician Referral Service by calling [phone] or by visiting [email or web address] Thank You for choosing the [facility] Emergency Department! * Attachments The following attachments cannot be sent through Care Everywhere. * Medication Side Effects ([place]) documented in this encounter* Attachments The following attachments cannot be sent through Care Everywhere. * Folliculitis ([place]) documented in this encounter* Attachments The following attachments cannot be sent through Care Everywhere. * Cellulitis ([place]) documented in this encounter* Instructions* Rubin Troncoso, DO - 08/14/2019 Thank you for allowing us to be involved in your care today. Please follow up as discussed during your stay. This information is included in your discharge paperwork. Appropriate follow up is essential in your continued care after today's visit. If you had any diagnostic studies (Labs, X-rays, CT-scan , Ultrasound or Cultures) have your Primary Care Physician (PCP) review them with you since there may be results that require further follow up or investigation. Return to the Emergency Department at any point with worsening conditions or concerns. The physician and staff of the Emergency Department would like to thank you for choosing our facility for your health care needs. Our goal is to provide exceptional service. You may be receiving a survey in the mail following your visit. Because your feedback is very important to us, we hope you will take the time to complete and return the survey. If for any reason, you feel that you cannot rateus Very Good or 5 for the service you received today, please let us know prior to your discharge. Please follow up with your family doctor or one of your choosing. You may find a provider through the [facility]ician Referral Service by calling [phone] or by visiting [email or web address] Thank You for choosing the [facility] Emergency Department! * Attachments The following attachments cannot be sent through Care Everywhere. * Abscess: Skin ([place]) documented in this encounter* Instructions* Rubin Troncoso DO - 10/16/2019 Thank you for allowing us to be involved in your care today. Please follow up as discussed during your stay. This information is included in your discharge paperwork. Appropriate follow up is essential in your continued care after today's visit. If you had any diagnostic studies (Labs, X-rays, CT-scan , Ultrasound or Cultures) have your Primary Care Physician (PCP) review them with you since there may be results that require further follow up or investigation. Return to the Emergency Department at any point with worsening conditions or concerns. The physician and staff of the Emergency Department would like to thank you for choosing our facility for your health care needs. Our goal is to provide exceptional service. You may be receiving a survey in the mail following your visit. Because your feedback is very important to us, we hope you will take the time to complete and return the survey. If for any reason, you feel that you cannot rateus Very Good or 5 for the service you received today, please let us know prior to your discharge. Please follow up with your family doctor or one of your choosing. You may find a provider through the [facility] Referral Service by calling [phone] or by visiting [email or web address] Thank You for choosing the [facility] Emergency Department! * Attachments The following attachments cannot be sent through Care Everywhere. * Epidermoid Cyst ([place]) documented in this encounter* Attachments The following attachments cannot be sent through Care Everywhere. * Strep Throat ([place]) documented in this encounter* Instructions* Elie Ramirez RN - 12/26/2019 Home Care The following instructions will help you care for yourself, or be cared for upon your return home today. These are guidelines for your care right after surgery only. Diet: Start your regular diet today Activity: No vigorous activity or lifting more than 5 pounds for 2 weeks. Wound Care and Hygiene: Remove dressing/may shower in 2days. If you have steri-strips leave them in place. Replace gauze as needed. Anesthesia Precautions & Expectations: After anesthesia, rest for [address], drink alcoholic beverages or make any important decisions during this time. General anesthesia may cause a sore throat, jaw discomfort or muscle aches. These symptoms can last for one or two days. What to Expect after Surgery: Some drainage, bruising and swelling from the incision. Mild to moderate discomfort and tenderness. Call your Doctor for: Pain not relieved with medicines. Increased amounts of redness, swelling, bleeding or any drainage (pus) from the incision. Temperature above 101 degrees. Other Instructions: Avoid antiperspirants No peroxide or alcohol to the wound No tubs baths pools for 2 weeks Sutures will be removed in 2 weeks Call your doctor's office at to make a follow-up appointment in weeks. If you have questions or problems, call your doctor's office at . If you are unable to reach your doctor call: The hospital addressograph operator at . Ask for the resident publications editor for your doctor. - [facility] documented in this encounter* Instructions* Rubin Troncoso, - 05/12/2020 Thank you for allowing us to be involved in your care today. Please follow up as discussed during your stay. This information is included in your discharge paperwork. Appropriate follow up is essential in your continued care after today's visit. If you had any diagnostic studies (Labs, X-rays, CT-scan , Ultrasound or Cultures) have your Primary Care Physician (PCP) review them with you since there may be results that require further follow up or investigation. Return to the Emergency Department at any point with worsening conditions or concerns. The physician and staff of the Emergency Department would like to thank you for choosing our facility for your health care needs. Our goal is to provide exceptional service. You may be receiving a survey in the mail following your visit. Because your feedback is very important to us, we hope you will take the time to complete and return the survey. If for any reason, you feel that you cannot rateus Very Good or 5 for the service you received today, please let us know prior to your discharge. Please follow up with your family doctor or one of your choosing. You may find a provider through the [facility] [facility]ician Referral Service by calling [phone] or by visiting [email or web address] Thank You for choosing the [facility] Emergency Department! * Attachments The following attachments cannot be sent through Care Everywhere. * Foreign Body in the Skin ([place]) documented in this encounter* Attachments The following attachments cannot be sent through Care Everywhere. * Paraesthesias ([place]) documented in this encounter* Attachments The following attachments cannot be sent through Care Everywhere. * Tooth and Gum Pain ([place]) documented in this encounter Assessments Diagnosis Pharyngitis due to Streptococcus species Diagnosis Soft tissue mass Disorders of soft tissue, unspecified Diagnosis Pelvic pain affecting in first trimester, antepartum- Primary Diagnosis EIC (epidermal inclusion cyst)- Primary Sebaceous cyst Diagnosis Medication reaction, initial encounter- Primary Diagnosis Folliculitis of axilla- Primary Diagnosis Cellulitis of left axilla Cellulitis and abscess of upper arm and forearm Diagnosis Abscess Cellulitis and abscess of unspecified site Diagnosis Sebaceous cyst of left axilla Diagnosis Soft tissue mass Disorders of soft tissue, unspecified Preoperative clearance Preoperative examination, unspecified Diagnosis Soft tissue mass Disorders of soft tissue, unspecified Pre-op exam Preoperative examination, unspecified Diagnosis Encounter for postoperative care- Primary Diagnosis Foreign body in right foot, initial encounter- Primary Diagnosis Transient visual loss of left eye Transient visual loss Diagnosis Facial paresthesia- Primary Paresthesia of right foot Disturbance of skin sensation Paresthesia of right arm Disturbance of skin sensation Diagnosis Pain, dental- Primary Unspecified disorder of the teeth and supporting structures Instructions * Patient Instructions* Afsaneh St LPN - 12/13/2019 2:15 PM EDT SURGERY INSTRUCTIONS Your surgery is scheduled at [facility] on Tuesday, December 25. Pre-admission testing (PAT), someone will call and set up date/time with you. Registration will call the day prior to pre-admission testing to get you pre-registered. The hospital will call you the day before your scheduled date to tell you what time to arrive. Theyusually don't call until afternoon. You can call the office after 3pm if you have not heard from the hospital. BLOOD THINNERS & SUPPLEMENTS: STOP DATE: 12/19/2019 Stop taking NSAID's (Ibuprofen, Advil, Motrin, Aleve, Naproxen, Celebrex) 7 days prior to procedure. Tylenol and other brands that contain Acetaminophen are safe to use. THE DAY BEFORE YOUR SURGERY: Eat a light/medium dinner. Avoid foods that may upset your stomach. DO NOT DRINK ALCOHOL. NOTHING to eat or drink after midnight. NO TOBACCO PRODUCT AFTER MIDNIGHT. DAY OF SURGERY: Do not wear jewelry, earrings, watches, etc. Wear comfortable clothing and shoes. (No heels) P.A.T will give you instructions regarding your medications other than your blood thinners. Note: YOU MUST HAVE A RESPONSIBLE ADULT DRIVE YOU HOME. IF YOU DO NOT HAVE SOMEONE TO DRIVE YOU, YOUR PROCEDURE WILL BE CANCELLED. PUBLIC TRANSPORT IS NOT PERMITTED, UNLESS YOU HAVE A FAMILY MEMBER OR FRIEND WITH YOU. FAILURE TO APPEAR FOR P.A.T WILL RESULT IN YOUR SURGERY BEING CANCELED If you have any questions, you become ill or have to cancel your surgery, please call the office [phone] COVID-19 TESTING AT [facility] 8a-1:30p Registration will call and schedule your appointment for 12/19/2019. We recommend all patients self-quarantine after testing. If you absolutely need to go outside of the home (grocery store, visit family, go to work) you must adhere to mandatory masking. Skin Lesion Removal: Before Your Procedure What is skin lesion removal? Skin lesion removal is a procedure or surgery to remove growths on your skin. You may have a skin lesion removed because it is too big, bothersome, or uncomfortable. Or you may have a lesion removed because it could be cancerous or precancerous. Often the doctor can remove simple skin lesions during a routine visit. In some cases, the doctor may remove the lesion in an operating room. This depends on the size and type of lesion. The doctor can remove a skin lesion in many ways. These include: Biopsy. The doctor cuts out or shaves a small part of the lesion. A doctor looks at the sample to see if there are any cancer cells. Excision. The doctor cuts out the entire lesion and, often, some of the area around it. Cryosurgery. The doctor uses a very cold liquid or special tool to freeze and destroy skin cells. Curettage. The doctor uses a special tool to scrape away parts of your lesion. Electrocautery. The doctor uses a device that gives off an electrical current to destroy, burn, or cut out skin cells. Laser surgery. The doctor uses a device that gives off laser light to destroy skin lesions. Mohs micrographic surgery. The doctor removes tissue one layer at a time and checks for cancer cells. Most people are awake during these procedures. Your doctor may give you medicine to numb the area so you will not feel pain. He or she may use stitches to close your wound. You will have a scar that fades with time. Most of these procedures take about 5 to 20 minutes. Sometimes the more complicated procedures, such as Mohs' micrographic surgery, can take a few hours. Most people can go back to their normal routine on the same day or the day after the procedure. Follow-up care is a hurtado part of your treatment and safety. Be sure to make and go to all appointments, and call your doctor if you are having problems. It's also a good idea to know your test resultsand keep a list of the medicines you take. How do you prepare for the procedure? Procedures can be stressful. This information will help you understand what you can expect. And it will help you safely prepare for your procedure. Preparing for the procedure Be sure you have someone to take you home. Anesthesia and pain medicine will make it unsafe for youto drive or get home on your own. Understand exactly what procedure is planned, along with the risks, benefits, and other options. If you take aspirin or some other blood thinner, ask your doctor if you should stop taking it before your procedure. Make sure that you understand exactly what your doctor wants you to do. These medicines increase the risk of bleeding. Tell your doctor ALL the medicines, vitamins, supplements, and herbal remedies you take. Some may increase the risk of problems during your procedure. Your doctor will tell you if you should stop taking any of them before the procedure and how soon to do it. Make sure your doctor and the hospital have a copy of your advance directive. If you don't have one, you may want to prepare one. It lets others know your health care wishes. It's a good thing to have before any type of surgery or procedure. What happens on the day of the procedure? Take a bath or shower before you come in for your procedure. Do not apply lotions, perfumes, deodorants, or nail afghan. At the hospital, clinic, or doctor's office Bring a picture ID. You will be kept comfortable and safe by your anesthesia provider. You may get medicine that relaxes you or puts you in a light sleep. The area being worked on will be numb. The procedure will take about 5 to 20 minutes. More complex procedures may take a few hours. You will probably go home right away, or within 1 or 2 hours. When should you call your doctor? You have questions or concerns. You don't understand how to prepare for your procedure. You become ill before the procedure (such as fever, flu, or a cold). You need to reschedule or have changed your mind about having the procedure. Where can you learn more? Go to [email or web address]/patiented. Enter T216 in the search box to learn more about 'Skin Lesion Removal: Before Your Procedure.' Interested in seeing a video go to [email or web address] to see all video content. Current as of: March 22, 2019 Content Version: 12.5 3646-7888 [employer]. Care instructions adapted under license by your healthcare professional. If you have questions about a medical condition or this instruction, always ask your healthcare professional. [employer] disclaims any warranty or liability for your use of this information. documented in this encounter History of Present Illness * Linda Hernandez LPN - 12/13/2019 2:15 PM EDT Nurse Note: Review of Systems Nursing Assessment: Physical Exam Pt is a 24 year old female that presents with left axillary cyst. documented in this encounter* Bruno Thompson DO - 01/10/2020 2:30 PM EDT Subjective @Herminio Alfred presents to the clinic post op Eating a regular diet without difficulty. Bowel movements are Normal. Pain is controlled with current analgesics. Medication(s) being used: percocet.. Objective General: alert, cooperative, no distress, appears stated age Abdomen: soft, bowel sounds active, non-tender Incision: healing well, no drainage, sutures removed, incision well approximated, noswelling Assessment Doing well postoperatively. Sutures removed Expect some drainage for the next couple of days Avoid heavy lifiting and excess abduction. documented in this encounter Advance Directives No Advanced Directives Records FoundDocuments on File Type Date Recorded Patient Program Supervisor Expl anation Advance Directives and Living Will Advance Directive Response Recorded Date/ Time Advance Directives No March 1:42pm Summary Purpose Family History No Family History Records FoundNo Family History Records FoundNo Family History Records FoundNo Family History Records FoundNo Family History Records FoundNo Family History Records FoundNo Family History Records FoundNo Family History Records Found Chief Complaint and Reason for Visit Chief Complaint E55.9;E89.0 Chief Complaint E89.0 Z20.5 Z30.011 Irregular menses Postoperative hypothyroidism Chief Complaint N92.6 E89.0 Less than 8 weeks gestation of Postopera Additional Source Comments Reason for Visit (unrecogniz ed section and content) Reason Comments Abdominal Pain sharp intermittent l ow abd cramping s/p fall captain cannery tender, 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 Per patient started as small raised area, progressively worsened. 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 is what she was supposed to chart picker Reason Comments Abscess c/o pain to rt axill a area states I have a red area and I squeezed a punch of foul smelling stuff out of it today Reason Comments Wound Infection infection to left u nderarm Reason Comments Skin Problem Reason Comments Cyst patient states she w as seen here a week ago for a cyst in her left axilla and started on keflex and Bactrim. states it feels like its getting worse Reason Comments New Patient Reason Comments Sore Throat sore throat and chil ls x 3 days Status Reason Specialty Diagnoses / Procedures Referre d By Contact Referred To Contact Diagnoses Soft tissue mass Soft tissue mass [M79.89] Procedures MT EXC TUMOR SOFT TISSUE UPPER ARM/ELBOW SUBQ 3+CM EXCISION LESION SOFT TISSUE UPPER EXTREMITY Bruno Thompson DO [address] [place] [address] Reason Comments Post Op Visit Left axillary soft t issue excision Reason Comments Foreign Body Removal pt reports that she has a splinter in her right heel x 2 hours. pt states that she was able to romove some of it. pt reports it is painful to walk on. 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 Symptoms are resolved now. Boyfriend called EMS Reason Comments Dental Pain dental pain to left side of mouth and swelling to let side of face. Had wisdom tooth removed from right side 4 days ago, is currently taking Clindamycin and Oxycodone, last Oxycodone at 4pm. Surgery to underarm 3 weeks ago. Facial Swelling Reason Comments Wound Check infection of toe fro m hangnail removal x 2 weeks ago, pt has a hx of mrsa. Urinary Tract Infection flank pain x las t night that is severe . Reason Comments Cough cough, congestion, p ain with coughing x 1 week. Has taken tylenol with no relief. Reason Comments New Patient Pain Specialty Diagnoses / Procedures Referred By Vince t Referred To Contact Pain Clinic Diagnoses Lumbar radiculopathy [facility] [address] [place] [address] Arlene Titus MD [address] [place] [address] Referral ID Status Reason Start Date Expiration Date V isits Requested Visits Authorized [id number] New Request 03/18/2021 04/12/2022 1 1 Reason Comments Abdominal Pain Pt. complains of abd pain and vomiting for last 3 weeks after eating food. Pt. states zofran isn't working. Pain 7/10. Reason Comments Urinary Tract Infection 1 week burning d uring urination, exposure to std, umbilicus infection Reason Comments Back Pain Patient complains of left lower back pain that radiates to middle lower back that which started a week and half ago. Patient states she does lift her furniture and toddler daily and does not know if she pulled a muscle. Denies urinary complaints, loss of bowel and bladder. Tried otc creams without relief. Reason Comments Back Pain 1 day. Lower back pa in and Rt side hip pain. Nausea. Lower middle abdominal pain. Pt is taking neurontin and rexulti. Reason Comments Fall Pt. Fell over dog an d landed on tailbone, back and hit back of head. Denies LOC. Also complains of lower abd pain. Pain 11/29. Specialty Diagnoses / Procedures Referred By Vince love Referred To Contact Magnetic Resonance Imaging Diagnoses 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 Fx sacrum/coccyx-closed, with routine healing, subsequent encounter Procedures MRI SPINE LUMBAR WITHOUT CONTRAST MT MRI, LUMBAR SPINE SpasiTasha foster MD [address] [place] [address] [facility] Mri [address] [place] [address] Referral ID Status Reason Start Date Expiration Date Visits Re quested Visits Authorized [id number] Closed 10/13/2021 11/07/2022 1 1 Reason Comments New Patient Patient fell on October 10 and broke the sacrum. Patient is scheduled to see a Dr. Ceron at [facility] referred by PCP. Patient was unable to fill pain med last visit because Called away on emergency. Rotated between ibuprofen, tylenol and percocet for pain meds. Needs to be seen to get refill on pain meds. Pain & numbness down right thigh & right knee. PCP recommended walker. Pt. had ice on when she came in. Said it was on since 8 am. Told to only leave on for 15 min & rest 1 hr.& repeat Pain Patient fell on October 10 and broke the sacrum. Patient is scheduled to see a Dr. Ceron at [facility] referred by PCP. Patient was unable to fill pain med last visit because Called away on emergency. Rotated between ibuprofen, tylenol and percocet for pain meds. Needs to be seen to get refill on pain meds. Pain & numbness down right thigh & right knee. PCP recommended walker. Pt. had ice on when she came in. Said it was on since 8 am. Told to only leave on for 15 min & rest 1 hr.& repeat ED Follow-up Patient fell on October 10 and broke the sacrum. Patient is scheduled to see a Dr. Ceron at [facility] referred by PCP. Patient was unable to fill pain med last visit because Called away on emergency. Rotated between ibuprofen, tylenol and percocet for pain meds. Needs to be seen to get refill on pain meds. Pain & numbness down right thigh & right knee. PCP recommended walker. Pt. had ice on when she came in. Said it was on since 8 am. Told to only leave on for 15 min & rest 1 hr.& repeat Reason Comments Pain Patient feels worse Follow-up Patient feels worse Specialty Diagnoses / Procedures Referred By Contac t Referred To Contact Magnetic Resonance Imaging Diagnoses Closed fracture of sacrum and coccyx, initial encounter Procedures MRI SPINE LUMBAR WITHOUT CONTRAST MT MRI, LUMBAR SPINE Marylin Brink MD [address] [place] [address] [facility] [address] [place] [address] Referral ID Status Reason Start Date Expiration Date Visits Re quested Visits Authorized [id number] Closed 12/01/2021 12/26/2022 1 1 Specialty Diagnoses / Procedures Referred By Contac t Referred To Contact Magnetic Resonance Imaging Diagnoses Closed fracture of sacrum and coccyx, initial encounter Procedures MRI SACRUM WITHOUT CONTRAST MT MRI, PELVIS, W/O CONTRAST Marylin Brink MD [address] [place] [address] [facility] [address] [place] [address] Referral ID Status Reason Start Date Expiration Date Visits Re quested Visits Authorized [id number] Closed 12/01/2021 12/26/2022 1 1 Reason Comments Paperwork Here for prescriptio n for pain meds Reason Comments Follow-up Pain Reason Comments Pain Specialty Diagnoses / Procedures Referred By Contac t Referred To Contact Diagnoses Lumbar spondylosis Arlene Titus MD [address] [place] [address] Referral ID Status Reason Start Date Expiration Date Visits Re quested Visits Authorized [id number] Closed 01/05/2022 01/30/2023 1 1 Specialty Diagnoses / Procedures Referred By Contac t Referred To Contact Diagnoses Lumbar spondylosis Procedures XR [employer] Arlene Titus MD [address] [place] [address] Referral ID Status Reason Start Date Expiration Date V isits Requested Visits Authorized [id number] New Request 01/29/2022 02/23/2023 1 1 Reason Comments Follow-up Inj fu Pain Inj fu Reason Comments Pain Patient is in extrem e pain today following physical therapy. Sacrum, right SI/glute and right leg are having sharp shooting pains and feel very tight. Follow-up Patient is in extrem e pain today following physical therapy. Sacrum, right SI/glute and right leg are having sharp shooting pains and feel very tight. Irma Siegel RN - 05/12/2020 10:15 PM Rubin Cuevas DO - 05/12/2020 9:36 PM Micheline Watkins MD - 01/12/2020 10:32 PM EDTSwetha Salinas RN - 01/12/2020 10:25 PM EDT ED Notes (unrecognized secti on and content) Dr Troncoso at bedside. Emergency Department Report [facility] Service Date:.05/12/20 PCP: Rekha Payton Chief Complaint: Chief Complaint Patient presents with Foreign Body Removal pt reports that she has a splinter in her right heel x 2 hours. pt states that she was able to romove some of it. pt reports it is painful to walk on. HPI Herminio Simon is a 24 y.o. female presents to the ED today due to splinter in her right heel. She said about 2 hours ago she was walking in her house and has wood floors and splinter. She says she was able to get what she thought was a considerable amount is a splinter out by herself but still complains of pain with walking so she is concerned that she'll piece in. Review of Systems: Review of Systems Constitutional: Negative for chills and fever. HENT: Negative for congestion, sore throat and trouble swallowing. Eyes: Negative for discharge and visual disturbance. Respiratory: Negative for cough and shortness of breath. Cardiovascular: Negative for chest pain and leg swelling. Gastrointestinal: Negative for abdominal pain and nausea. Genitourinary: Negative for difficulty urinating and urgency. Musculoskeletal: Negative for back pain. Skin: Positive for wound (right heel concern for FB). Negative for rash. Neurological: Negative for speech difficulty and weakness. All other systems reviewed and are negative. Past Medical History: Past Medical History: Diagnosis Date Anxiety Hypothyroidism Migraine Panic attack PTSD (post-traumatic stress disorder) Past Surgical History: Past Surgical History: Procedure Laterality Date EXCISION HIDRADENITIS AXILLARY 12/26/2019 Surgeon: Bruno Thompson DO; Location: [facility] OR TREATMENT INDUCED W/ DILATION & EVACUATION 2014 THYROIDECTOMY Allergies: Allergies Allergen Reactions Coconut Oil RASH Medications: Patient's Medications New Prescriptions No medications on file Previous Medications ACETAMINOPHEN 500 MG TABLET Take 1,000 mg by mouth every 6 hours as needed for Pain. IBUPROFEN 600 MG TAB TABLET Take 600 mg by mouth Every 6 hours as needed. 06/11 1-20 MG-MCG TABLET LEVOTHYROXINE 75 MCG TAB TABLET Take 100 mcg by mouth daily. LEVOTHYROXINE 88 MCG TABLET 1 tablet on an empty stomach in the morning NON-FORMULARY control-does not know the name PROMETHAZINE 25 MG TAB TABLET TAKE 1 TABLET BY MOUTH NEEDED EVERY 6-8 HOUR FOR NAUSEA OR VOMITING RA HI CHELSEA 500-200 MG-UNIT TAB TABLET take 1 tablet by mouth three times a day with meals SERTRALINE 25 MG TABLET Modified Medications No medications on file Discontinued Medications No medications on file Family History: History reviewed. No pertinent family history. Social History: Social History Socioeconomic History Marital status: Single Spouse name: Not on file Number of children: Not on file Years of education: Not on file Highest education level: Not on file Occupational History Not on file Social Needs Financial resource strain: Not on file Food insecurity Worry: Not on file Inability: Not on file Transportation needs Medical: Not on file Non-medical: Not on file Tobacco Use Smoking status: Former Smoker Smokeless tobacco: Never Used Tobacco comment: quit 2017 Substance and Sexual Activity Alcohol use: Not Currently Drug use: Not Currently Sexual activity: Not on file Comment: LMP 12/17/19 Lifestyle Physical activity Days per week: Not on file Minutes per session: Not on file Stress: Not on file Relationships Social connections Talks on phone: Not on file Gets together: Not on file Attends shinto service: Not on file Active member of club or organization: Not on file Attends meetings of clubs or organizations: Not on file Relationship status: Not on file Intimate partner violence Fear of current or ex partner: Not on file Emotionally abused: Not on file Physically abused: Not on file Forced sexual activity: Not on file Other Topics Concern Not on file Social History Narrative Not on file Physical Exam: Physical Exam Vitals signs and nursing note reviewed. Constitutional: General: She is not in acute distress. Appearance: She is well-developed. Musculoskeletal: Normal range of motion. Feet: Feet: Comments: Wound noted in the heel of the right foot. Where the splinter was in. I don't appreciate visually a splinter. There is some discoloration of the puncture area or to think maybe from the wound itself however I don't appreciate a discrete piece of splinter Skin: General: Skin is warm and dry. Neurological: Mental Status: She is alert and oriented to person, place, and time. Vital Signs During ED Visit Patient Vitals for the past 24 hrs: BP Temp Temp src Pulse Resp SpO2 05/12/20 2132 120/85 97.5 F (36.4 C) Oral 82 16 97 % Orders/Results: Orders Placed This Encounter XR FOOT RIGHT 3 VIEWS AMB REFERRAL TO PODIATRY 06/11 1-20 MG-MCG tablet sertraline 25 MG tablet bacitracin ointment 1 Application Radiographic Imaging XR FOOT RIGHT 3 VIEWS Final Result IMPRESSION: Suspected film artifact along the plantar aspect of the foot at the tarsometatarsal junction. No convincing radiopaque foreign body in the soft tissues of the heel. Procedures: Procedures Using an 18-gauge needle and was able to bluntly remove a few small specks of wood that material from the puncture point. She tolerated well. There were no complications. I did appear to remove all of the material. Moderate Sedation Procedure: No Medications Ordered/Given During ED Visit Medications bacitracin ointment 1 Application (has no administration in time range) Medical Decision Making Foreign body right heel. I did remove several small pieces of what appeared he would material. On pursue any other wood. She is otherwise stable. X-ray was unremarkable. I would refer her to podiatry for follow-up and if there is any residual wood to be removed if deemed necessary. Discharge home. Clinical Impression: 1. Foreign body in right foot, initial encounter Acute No follow-ups on file. New Prescriptions No medications on file Discontinued Medications No medications on file An After Visit Summary was printed and given to the patient with above information. Rubin Troncoso DO 05/12/202227 documented in this encounter History Chief Complaint Patient presents with Dental Pain dental pain to left side of mouth and swelling to let side of face. Had wisdom tooth removed from right side 4 days ago, is currently taking Clindamycin and Oxycodone, last Oxycodone at 4pm. Surgery to underarm 3 weeks ago. Facial Swelling 24yo f with pmhx as below presenting with left upper moral dental pain for the past 2-3 days. Pain moderate to severe, worse with palpation, sharp, nonradiating. No fever/chills, no cough, no shortness of breath. The history is provided by the patient. Past Medical History: Diagnosis Date Anxiety Hypothyroidism Migraine Panic attack PTSD (post-traumatic stress disorder) Past Surgical History: Procedure Laterality Date EXCISION HIDRADENITIS AXILLARY 12/26/2019 Surgeon: Bruno Thompson DO; Location: [facility] OR TREATMENT INDUCED W/ DILATION & EVACUATION 2013 THYROIDECTOMY History reviewed. No pertinent family history. Social History Tobacco Use Smoking status: Former Smoker Smokeless tobacco: Never Used Tobacco comment: quit 2018 Substance Use Topics Alcohol use: Not Currently Drug use: Not Currently Review of Systems Constitutional: Negative for chills and fever. HENT: Positive for facial swelling. Respiratory: Negative for cough and shortness of breath. Musculoskeletal: Negative for myalgias. Skin: Negative for color change. Physical Exam BP (!) 138/97 Pulse 97 Temp 97.2 F (36.2 C) (Oral) Resp 18 Wt 54.4 kg (120 lb) BMI 21.26 kg/m Smoking Status Former Smoker Physical Exam Vitals signs and nursing note reviewed. Constitutional: General: She is not in acute distress. Appearance: Normal appearance. She is not ill-appearing, toxic-appearing or diaphoretic. HENT: Head: Normocephalic and atraumatic. Right Ear: External ear normal. Left Ear: External ear normal. Nose: Nose normal. Mouth/Throat: Lips: [place]. Mouth: Mucous membranes are moist. Dentition: Abnormal dentition. Dental tenderness and dental caries present. No gingival swelling, dental abscesses or gum lesions. Tongue: No lesions. Tongue does not deviate from midline. Palate: No mass and lesions. Pharynx: Oropharynx is clear. Uvula midline. No pharyngeal swelling, oropharyngeal exudate, posterior oropharyngeal erythema or uvula swelling. Tonsils: No tonsillar exudate. Eyes: General: No scleral icterus. Extraocular Movements: Extraocular movements intact. Conjunctiva/sclera: Conjunctivae normal. Pupils: Pupils are equal, round, and reactive to light. Neck: Musculoskeletal: Normal range of motion and neck supple. Cardiovascular: Rate and Rhythm: Normal rate and regular rhythm. Pulses: Normal pulses. Heart sounds: Normal heart sounds. Pulmonary: Effort: Pulmonary effort is normal. No respiratory distress. Breath sounds: Normal breath sounds. No stridor. No wheezing or rales. Abdominal: General: Abdomen is flat. There is no distension. Musculoskeletal: Normal range of motion. General: No tenderness. Lymphadenopathy: Cervical: No cervical adenopathy. Skin: General: Skin is warm and dry. Capillary Refill: Capillary refill takes less than 2 seconds. Findings: No erythema. Neurological: General: No focal deficit present. Mental Status: She is alert and oriented to person, place, and time. Mental status is at baseline. Psychiatric: Mood and Affect: Mood normal. Behavior: Behavior normal. ED Course Procedures Superior alveolar block performed using 3ml of 0.5% Marcaine with immediate relief of pain. Pt tolerated procedure without complications. EBL: minimal. MDM Number of Diagnoses or Management Options Pain, dental: new, no workup Diagnosis management comments: Nursing notes and vital signs reviewed. Risk of Complications, Morbidity, and/or Mortality Presenting problems: moderate Diagnostic procedures: moderate Management options: moderate General comments: Pt nontoxic. No increased work of breathing, no hypoxemia. No emergent or urgent medical condition found on examg. Emergent/urgent conditions and conditions needing hospitalization considered. Patient Progress Patient progress: resolved Discharged with Dentist followup. Micheline Veloz MD 01/12/[address] Veloz in Patient states dentist appointment on January 28 documented in this encounter Care Teams (unrecognized sec tion and content) Manager Biostatistics Relationship Specialty Start Date End Date Tasha Mehta CNP [address] [place] [address] PCP - General Nurse Practitioner 01/05/21 Manager Biostatistics Relationship Specialty Start Date End Date Tasha Mehta CNP [address] [place] [address] PCP - General Nurse Practitioner 01/05/21 Manager Biostatistics Relationship Specialty Start Date End Date Tasha Mehta MD [address] [place] [address] PCP - General Nurse Practitioner - [facility] 07/17/20 Manager Biostatistics Relationship Specialty Start Date End Date Tasha Mehta MD [address] [place] [facility] [place] [place] [address] PCP - General Nurse Practitioner - [facility] 07/17/20 Manager Biostatistics Relationship Specialty Start Date End Date Tasha Mehta CNP [address] [place] [address] PCP - General Nurse Practitioner 01/05/21 Manager Biostatistics Relationship Specialty Start Date End Date Tasha Mehta CNP [address] [place] [address] PCP - General Nurse Practitioner 01/05/21 Manager Biostatistics Relationship Specialty Start Date End Date Tasha Mehta MD [address] [place] [address] PCP - General Nurse Practitioner - [facility] 07/17/20 Manager Biostatistics Relationship Specialty Start Date End Date Tasha Mehta, ELECTRONIC DATA INTERCHANGE SPECIALIST [address] [place] [address] PCP - General Nurse Practitioner 01/05/21 Manager Biostatistics Relationship Specialty Start Date End Date Tasha Mehta MD [address] [place] [address] PCP - General Nurse Practitioner - [facility] 07/17/20 Manager Biostatistics Relationship Specialty Start Date End Date Tasha Mehta MD [address] [place] [address] PCP - General Nurse Practitioner - [facility] 07/17/20 Manager Biostatistics Relationship Specialty Start Date End Date Tasha Mehta MD [address] [place] [address] PCP - General Nurse Practitioner - [facility] 07/17/20 Manager Biostatistics Relationship Specialty Start Date End Date Tasha Mehta MD [address] [place] [address] PCP - General Nurse Practitioner - [facility] 07/17/20 Manager Biostatistics Relationship Specialty Start Date End Date Tasha Mehta MD [address] [place] [address] PCP - General Nurse Practitioner - [facility] 07/17/20 Manager Biostatistics Relationship Specialty Start Date End Date Tasha Mehta MD [address] [place] [address] PCP - General Nurse Practitioner - [facility] 07/17/20 Manager Biostatistics Relationship Specialty Start Date End Date Tasha Mehta MD [address] [place] [address] PCP - General Nurse Practitioner - [facility] 07/17/20 Manager Biostatistics Relationship Specialty Start Date End Date Tasha Mehta MD [address] [place] [address] PCP - General Nurse Practitioner - [facility] 07/17/20 Manager Biostatistics Relationship Specialty Start Date End Date Tasha Mehta MD [address] [place] [address] PCP - General Nurse Practitioner - [facility] 07/17/20 Manager Biostatistics Relationship Specialty Start Date End Date Tasha Mehta MD [address] [place] [address] PCP - General Nurse Practitioner - [facility] 07/17/20 Manager Biostatistics Relationship Specialty Start Date End Date Tasha Mehta MD [address] [place] [address] PCP - General Nurse Practitioner - [facility] 07/17/20 Manager Biostatistics Relationship Specialty Start Date End Date Tasha Mehta MD [address] [place] [address] PCP - General Nurse Practitioner - [facility] 07/17/20 Manager Biostatistics Relationship Specialty Start Date End Date aTsha Mehta MD [address] [place] [address] PCP - General Nurse Practitioner - [facility] 07/17/20 Manager Biostatistics Relationship Specialty Start Date End Date Tasha Mehta MD [address] [place] [address] PCP - General Nurse Practitioner - [facility] 07/17/20 Manager Biostatistics Relationship Specialty Start Date End Date Tasha Mehta MD [address] [place] [address] PCP - General Nurse Practitioner - [facility] 07/17/20 Manager Biostatistics Relationship Specialty Start Date End Date Tasha Mehta MD [address] [place] [address] PCP - General Nurse Practitioner - [facility] 07/17/20 Team Status: Active Member Role Status Dates Services [facility] Primary Care Provider Active Team Status: Inactive Member Role Status Dates Services [facility] Primary Care Provider Active Tasha Mehta F[employer] DUSTER-C Attending Provider Active Team Status: Inactive Member Role Status Dates TYRELL MarinaC Attending Provider Active Start: June 09, 2023 End: June 09, 2023 Team Status: Inactive Member Role Status Dates GABRIEL Marina Attending Provider Active Start: September 01, 2023 End: September 01, 2023 Team Status: Inactive Member Role Status Dates GABRIEL Marina Attending Provider Active Start: October 27, 2023 End: October 27, 2023 Scheduled Active and Recently Administ ered Medications (unrecognized section and content) Medication Order 05/28/2021 05/29/2021 05/30/2021 faMOTIdine (PEPCID) injection 20 mg (COMPLETED) 20 mg, Intravenous, ONCE, 1 dose, On 05/30/21 at 1700, Administer by slow IV push at a rate not to exceed 10mg/min 1641 (Given - Provid er: Butch Ocasio RN) GI cocktail: alum/mag hydrox-simethicone(30ml)+lidocai ne 2%(10ml) oral suspension 40 mL (COMPLETED) 40 mL, Oral, ONCE, 1 dose, On 05/30/21 at 1845 1815 (Given - Provid er: Chelly Blackburn RN - Comment: patient was only able nelia take 30ml) ondansetron 4mg/2ml (ZOFRAN) injection 4 mg (COMPLETED) 4 mg, Intravenous, ONCE, 1 dose, On 05/30/21 at 1700 1641 (Given - Provid er: Butch Ocasio RN) sodium chloride 0.9% IV solution 1,000 mL (COMPLETED) 1,000 mL, Intravenous, ONCE, 1 dose, On 05/30/21 at 1700 1641 ($$New Bag$$ - Provider: Butch Ocasio RN)1825 (Stopped - Provider: Chelly Blackburn, JAIMEE) Scheduled Medication Order 01/07/2021 01/08/2021 01/09/2021 ketorolac (TORADOL) injection 15 mg (COMPLETED) 15 mg, Intramuscular, ONCE, 1 dose, On Tue01/09/21 at 1400 1429 (Given - Provid er: Soha Boston RN) Scheduled Medication Order 10/09/2021 10/10/2021 10/11/2021 ketorolac (TORADOL) injection 30 mg (COMPLETED) 30 mg, Intramuscular, ONCE, 1 dose, On 10/11/21 at 1430 1416 (Given - Provid er: Chelly Nascimento RN) methylPREDNISolone sodium succinate (SOLU-MEDROL) injection 125 mg (COMPLETED) 125 mg, Intramuscular, ONCE, 1 dose, On 10/11/21 at 1430 1415 (Given - Provid er: Chelly Nascimento RN) ondansetron (ZOFRAN-ODT) disintegrating tablet 4 mg (COMPLETED) 4 mg, Oral, ONCE, 1 dose, On 10/11/21 at 1515 1440 (Given - Provid er: Kemi Leong RN) INFORMATION SOURCE (unrecogn ized section and content) DATE CREATED AUTHOR 10/11/2021 [facility] DATE CREATED AUTHOR AUTHOR'S ORGANIZ ATION 11/03/2021 [facility] DATE CREATED AUTHOR AUTHOR'S ORGANIZ ATION 03/16/2022 [facility] DATE CREATED AUTHOR AUTHOR'S ORGANIZ ATION 04/20/2022 [facility] DATE CREATED AUTHOR AUTHOR'S ORGANIZ ATION 09/28/[address] [facility] [facility] DATE CREATED AUTHOR AUTHOR'S ORGANIZ ATION 06/17/[address] [facility] DATE CREATED AUTHOR AUTHOR'S ORGANIZ ATION 11/01/2023 [facility] DATE CREATED AUTHOR AUTHOR'S ORGANIZ ATION 11/05/2023 [facility] Goals (unrecognized section and content) Goals may be documented in a n alternate sectionGoals may be documented in an alternate sectionGoals may be documented in an alternate sectionGoals may be documented in an alternate section FOR RECORDS PERTAINING TO PATIENTS WHO ARE OR HAVE BEEN ENROLLED IN A CHEMICAL DEPENDENCY/SUBSTANCEABUSE PROGRAM, SOME INFORMATION MAY BE OMITTED. This clinical summary was aggregated from multiple sources. Caution should be exercised in using it in the provision of clinical care. This summary normalizes information from multiple sources, and as a consequence, information in this document may materially change the coding, format and clinical context of patient data. In addition, data may be omitted in some cases. CLINICAL DECISIONS SHOULD BE BASED ON THE PRIMARY CLINICAL RECORDS. [facility] [employer] [facility]. provides no warranty or guarantee of the accuracy or completeness of information in this document.
[2023-11-05] MEDS: ACETAMINOPHEN 500 MG TABLET 1000 MG PO (16:11)
[2023-11-05 16:25] LABS: Basophils Percent Auto 0.2 % (0.2-2.0); Eosinophils Percent Auto 0.3 % (0.9-7.0); Hematocrit 38.3 % (36.0-48.0); Hemoglobin 13.1 g/dL (12.0-16.0); Immature Granulocytes Abs Auto 0.01 10^3/uL (0.00-0.03); Immature Granulocytes Pct Auto 0.2 % (0.0-0.5); Lymphocytes Absolute Auto 1.5 10^3/uL (1.2-3.8); Lymphocytes Percent Auto 21.8 % (20.5-60.0); Mean Corpuscular HGB Conc 34.2 g/dL (29.9-35.2); Mean Corpuscular Hemoglobin 29.9 pg (26.7-34.0); Mean Corpuscular Volume 87.4 fL (81.0-99.0); Mean Platelet Volume 9.1 fL (9.5-13.5); Monocytes Absolute Auto 0.6 10^3/uL (0.3-0.8); Monocytes Percent Auto 8.3 % (1.7-12.0); Neutrophils Absolute Auto 4.6 10^3/uL (1.4-6.5); Neutrophils Percent Auto 69.2 % (43.0-75.0); Platelet Count 218 10^3/uL (150-450); Red Blood Count 4.38 10^6/uL (4.20-5.40); Red Cell Distribution Width 12.2 % (11.0-15.0); White Blood Count 6.7 10^3/uL (4.0-11.0)
[2023-11-05 16:57] LABS: HCG Quantitative 50806 mIU/mL
[2023-11-05 17:53] VITALS: BP 113/72; PULSE 71; O2SAT 100
== END 2023-11-05 18:39 | disposition home or self-care (01) ==
PROVIDERS: Physician Assistant; Emergency Provider Student in an Organized Health Care Education/Training Program
DX: O9A.211 Injury, poisoning and certain other consequences of external causes complicating pregnancy, first trimester (principal); S83.92XA Sprain of unspecified site of left knee, initial encounter; W10.9XXA Fall (on) (from) unspecified stairs and steps, initial encounter; R10.2 Pelvic and perineal pain; Z3A.37 37 weeks gestation of pregnancy; O99.331 Smoking (tobacco) complicating pregnancy, first trimester; F17.200 Nicotine dependence, unspecified, uncomplicated
CPT/HCPCS: 36415; 73562; 76817; 84702; 85025; 86900; 86901; 99285

== ENCOUNTER 2023-11-16 23:32 | Emergency (ER) | payer MEDICARE, MEDICAID, SELFPAY ==
[2023-11-16 23:35] VITALS: BP 119/80; PULSE 96; TEMP 36.9; O2SAT 100; BMI 22.1
--- NOTE | 2023-11-16 23:38 | ECG_ITS ---
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
--- OUTSIDE RECORDS SUMMARY | 2023-11-16 23:41 | XMS_ITS | CCD ---
Author Organization [facility] Inform ion Partnership [facility] Care Team Providers Care Custom Harvester Name Role Phone Unavailable Primary Care Provider Unavailabl e [facility], [facility] nataly Care Provider Rekha Payton Primary Care Provider [phone] [facility], [facility] Lin vailable [facility] Lin vailable Rekha Payton Primary Care Provider Rekha Payton Primary Care Provider Tasha Mehta Primary Care Provider SpaTasha paredes CNP Primary Care Provide r Tasha Mehta MD Primary Care Provider Tasha Mehta CNP Primary Care Provide r TASHA MEHTA Primary Care Unavaila [place] Attending Unava ilable SPATASHA PAREDES Primary Care Unavaila [place] Attending Unava ilable JAKOB FUNEZ Attending Unavailable SPASITASHA Best Primary Care Unavaila ble SPATASHA PAREDES Primary Care Unavaila ble TASHA MEHTA Primary Care Unavaila ble LISBETH LOUIS Attending Unavailable SPASIC, TASHA RO Primary Care Unavaila ble LISBETH LOUIS Attending Unavailable SPASINasir, TASHA RÍOSTH Primary Care Unavaila ble ELIAS DUBON Attending Unavailabl e Tasha Mehta MD Primary Care Provider SPASIC, TASHA Primary Care Unavailable TITUS, ARLENE Referring Unavailable TITUS, ARLENE Attending Unavailable SPASIC, TASHA Primary Care Unavailable TITUS, ARLENE Attending Unavailable MARRUFO, TASHA S Referring Unavailable TITUS, ARLENE Attending Unavailable SPASIC, [...] Primary Care Unavailable PRICEMARYLIN Kim Attending Unavailable PRICEMARYLIN Referring Unavailable SPASIC, TASHA Primary Care Unavailable SPASIC, TASHA Primary Care Unavailable ULI BEJARANO Attending Unavailable PRICE, MARYLIN Attending Unavailable PRICE MARYLIN Referring Unavailable SPASIC, TASHA Primary Care Unavailable SPASIC, TASHA Attending Unavailable SPASIC, TASHA Referring Unavailable SPASIC, TASHA Primary Care Unavailable SPASIC, TASHA Primary Care Unavailable ZELALEM HAMPTON Attending Unavailable PRICEMARYLIN Attending Unavailable PRICE MARYLIN Referring Unavailable SPASIC, TASHA Primary Care Unavailable SPASIC, TASHA Attending Unavailable SPASIC, TAHSA Referring Unavailable SPASIC, TASHA Primary Care Unavailable PRICEMARYLIN Kim Attending Unavailable SELF, SELF Referring Unavailable SPASIC, TASHA Primary Care Unavailable PRICEMARYLIN Attending Unavailable PRICE, MARYLIN Referring Unavailable SPASIC, TASHA Primary Care Unavailable PRICEMARYLIN Attending Unavailable PRICE, MARYLIN Referring Unavailable SPASIC, TSAHA Primary Care Unavailable PRICE, MARYLIN Attending Unavailable [...] Attending Unavailable SPASIC, TASHA Primary Care Unavailable KALAPANTOINE DANG Attending Unavailable PRICE, MARYLIN Attending Unavailable PRICE, [...] Referring Unavailable SPASIC, TASHA Primary Care Unavailable [facility], Services Primary Care Provider Spasic, DECAL DECORATOR-C Tasha E Attending Provider Spasic, DECAL DECORATOR-C Tasha E Attending Provider Spasic, Tasha E Attending Unavailable Spasic, Tasha E Admitting Unavailable Spasic, DECAL DECORATOR-C Tasha E Attending Provider Spasic, DECAL DECORATOR-C Tasha E Attending Provider Spasic, Tasha E Attending Unavailable NON STAFF Primary Care Unavailable Spasic, Tasha E Admitting Unavailable Spasic, Tasha E Admitting Unavailable Spasic, Tasha E Attending Unavailable [facility] Primary Care Unavaila Jim Durbin Attending Unavailab le Jim Mcknight Admitting Unavailab le Spasic, Tasha E Admitting Unavailable [facility] Primary Care Unavaila Tasha Scott Attending Unavailable Tasha Mehta Attending Unavailable Tasha Mehta Admitting Unavailable TASHA MEHTA Primary Care Physician Zhanna Wheeler I Unavailable Unavailable CHELLY MO Attending Unavailable MEDINA MO Attending Unavaila lianna MO, MEDINA Spaulding Admitting Unavaila ble MEDINA MO Attending Unavaila ble CHEPE, MEDINA Spaulding Admitting Unavaila ble Allergies Allergy Classification Reported Allergen(s) Allergy Type Date of Onset Reaction(s) Facility (20 sources) coconut allergenic extract; Translations: [COCONUT OIL] Drug Allergy 0 [facility] (11 sources) Buprenorphine / Naloxone; Translations: [BUPRENORPHINE-NAL OXONE] Drug Allergy 2 GI Intolerance, Dyspepsia [facility] (3 sources) Coconut Oil Drug Allergy 0 [facility] Medications Current Medications Medication Drug Class(es) Dates [...] oral solution (1 source) alpha-Adrenergic Agonist, Uncompetitive B-idhgct-G-aspartate Receptor Antagonist, Sigma-1 Agonist Start: 02-21-2021 End: [...] Active Start: 08-10-2021 take 1 tablet by [facility] twice daily busPIRone (BUSPAR) 10 MG tablet [...] 26, 2017 12:00am March 24, 2018 4:04pm Start: 05-18-2014 take 1 tablet by alyssia th every eight hours at mealtime Motrin 800 mg Tab 800 mg = 1 tab(s), Oral, q8hr, Take one tab by mouth every eight hours with food, # 21 tab(s), Refills(s) 0 Start Date: 05/18/14 Status: Ordered Lanolin (3 sources) Start: 03-23-2019 Lanolin (Masood-O [...] tongue 30 tablet 0 10/11/2021 Active Pnv,Calcium 10-Rmqi-Bgchr Acid (3 sources) Start: 03-22-2019 take 1 tablet by mouth once daily Pnv,Calcium 08-Zqri-Beysi Acid Active 1 TAB PO Daily March 22, 2019 12:00am sertraline 50 mg oral tablet (20 sources) Serotonin Reuptake Inhibitor Start: 12-09-2020 take 1 tablet by mouth once daily sertraline (ZOLOFT) 50 MG tablet Take 50 mg by mouth daily . 0 12/09/2020 Active Start: 04-30-2020 take 3 tablets by mo ut once daily sertraline 25 MG tablet Take [...] tablet Discontinued 1 TAB PO Twice daily 11 03March 24, 2018 12:00am April 03, 2018 1:02am [...] Antibacterial, Polymyxin-class Antibacterial Start: 12-26-2019 End: 12-26-2019 pvntlbfp-sujpklamvf-cvsrteqf n (NEOSPORIN) 400-5-5000 ointment benzocaine 140 mg/ml [...] 12-26-2019 bupivacaine-epinep hrine (MARCAINE;SENSORCA INE W/EPI) 0.25% -1:292071 injection calcium carbonate 1250 mg / cholecalciferol [...] Anesthetic Start: 08-14-2019 End: 08-14-2019 lidocaine-epineph rine 1%-1:784570 injection 20 mL Start: 08-14-2019 End: 08-14-2019 lidocaine-epinephrine 1%-1:1 26038 injection 20 mL ethinyl estradiol 0.02 mg / norethindrone acetate 1 mg oral tablet (4 sources) Estrogen Start: 05-12-2020 End: 04-01-2021 June06/11 1-20 MG-MCG tablet GI cocktail: alum/mag hydrox-simethicone(30ml [...] lumbar region] Onset: 01-05-2022 Chronic Substance-related disorders (2 sources) Smoker; Translations: [Nicotine dependence, unspecified, uncomplicated] Chronic Comment on above: Added secondary to d ocumentation in Social History. Unclassified (1 source) Sebaceous cyst of skin; [...] Test Name Value Interpretation Reference Range Facility ABO/Rhon 11-14-2023 ABO/Rh AB POS Invalid Interpretation Code [facility] Comment on above: Performed By: #### 2 [id number] #### [facility] [address] [place] [address] ABSCon 11-14-2023 ABSC Gel Interp Negative Normal [facility] Comment on above: Performed By: #### 1 [id number] #### [facility] [address] [place] [address] BLOOD BANKOrdered By: Tremaine Encarnacion on 11-14-2023 ABO/Rh Interp AB POS Invalid Interpretation Code [facility] BB Subsection ABSC Gel Interp Negative (11/14/23 4:56 PM) Normal [facility] BB Subsection CBC w/ Auto Diffon 4 Basophils/100 WBC (Bld) 0.3 % Normal 0.0-2.0 [facility] Comment on above: Performed By: #### 2 [id number] #### [facility] [address] [place] [address] Basophils/Leukocytes Auto (Bld) [Pure # fraction] 0.0 E9/L Normal 0.0-0.2 [facility] Comment on above: Performed By: #### 2 [id number] #### [facility] [address] [place] [address] Eosinophils (Bld) [#/Vol] 0.0 E9/L Normal 0.0-0.5 [facility] Comment on above: Performed By: #### 2 [id number] #### [facility] [address] [place] [address] Eosinophils/100 WBC (Bld) 0.7 % Normal 0.0-8.0 [facility] Comment on above: Performed By: #### 2 [id number] #### [facility] [address] [place] [address] Erythrocyte distribution width (RBC) [Ratio] 13.2 % Normal 10.9-14.2 [facility] Comment on above: Performed By: #### 2 [id number] #### [facility] [address] [place] [address] Hematocrit (Bld) [Volume fraction] 40.4 % Normal 34.0-46.0 [facility] Comment on above: Performed By: #### 2 [id number] #### [facility] [address] [place] [address] Hemoglobin (Bld) [Mass/Vol] 13.8 g/dL Normal 12.0-16.0 [facility] Comment on above: Performed By: #### 2 [id number] #### [facility] [address] [place] [address] Lymphocytes (Bld) [#/Vol] 2.2 E9/L Normal 1.0-4.0 [facility] Comment on above: Performed By: #### 2 [id number] #### [facility] [address] [place] [address] Lymphocytes/100 WBC (Bld) 36.4 % Normal 14.0-50.0 [facility] Comment on above: Performed By: #### 2 [id number] #### [facility] [address] [place] [address] MCH (RBC) [Entitic mass] 30.2 pg Normal 27.0-34.0 [facility] Comment on above: Performed By: #### 2 [id number] #### [facility] [address] [place] [address] MCHC (RBC) [Mass/Vol] 34.3 g/dL Normal 31.4-36.0 [facility] Comment on above: Performed By: #### 2 [id number] #### [facility] [address] [place] [address] MCV (RBC) [Entitic vol] 88.1 fL Normal 80.0-100.0 [facility] Comment on above: Performed By: #### 2 [id number] #### [facility] [address] [place] [address] Monocytes (Bld) [#/Vol] 0.5 E9/L Normal 0.2-1.0 [facility] Comment on above: Performed By: #### 2 [id number] #### [facility] [address] [place] [address] Neutrophils (Bld) [#/Vol] 3.3 E9/L Normal 2.0-7.5 [facility] Comment on above: Performed By: #### 2 [id number] #### [facility] [address] [place] [address] Neutrophils/100 WBC (Bld) 54.9 % Normal 36.0-75.0 [facility] Comment on above: Performed By: #### 2 [id number] #### [facility] [address] [place] [address] Platelet mean volume (Bld) [Entitic vol] 7.4 fL Normal 6.4-10.8 [facility] Comment on above: Performed By: #### 2 [id number] #### [facility] [address] [place] [address] Platelets (Bld) [#/Vol] 233.0 E9/L Normal 150.0-500.0 [facility] Comment on above: Performed By: #### 2 [id number] #### [facility] [address] [place] [address] RBC (Bld) [#/Vol] 4.6 E12/L Normal 4.3-5.9 [facility] Comment on above: Performed By: #### 2 [id number] #### [facility] [address] [place] [address] WBC corrected for nucl RBC Auto (Bld) [#/Vol] 6.0 E9/L Normal 4.0-11.0 [facility] Comment on above: Performed By: #### 2 [id number] #### [facility] [address] [place] [address] CHEMISTRYOrdered By: SYSTEM SYSTEM on 11-14-2023 Free T4 [Mass/Vol] 1.14 ng/dL Normal 0.58 - 1. 64 ng/dL [facility] TSH Qn 1.06 m[IU]/L Normal 0.34 - 5.60 mcIU/mL [facility] Amphetamines Screen method >1000 ng/mL Ql (U) NEGATIVE 7 (11/14/23 4:50 PM) Normal NEGATIVE [facility] Comment on above: Interpretive Data: N egative Cutoff: <1000 ng/mL Barbiturates Screen Ql (U) NEGATIVE 8 (11/14/23 4:50 PM) Normal NEGATIVE [facility] Comment on above: Interpretive Data: N egative Cutoff: <200 ng/mL Benzodiazepines Ql (U) NEGATIVE 1 (11/14/23 4:50 PM) Normal NEGATIVE [facility] Comment on above: Interpretive Data: N egative Cutoff: <200 ng/mL Cannabinoids Screen Ql (U) POSITIVE 5, 6 *ABN* (11/14/23 4:50 PM) Invalid Interpretation Code NEGATIVE [facility] Comment on above: Result Comment: Crit ical Result Verified by Repeat Analysis No Confirmation Requested by Physician Critical result called to Chelly Mo by [facility] on 11/14/23 at 1804 Result verified by repeat analysis, Unconfirmed by alternate method Interpretive Data: N egative Cutoff: <50 ng/mL Cocaine Ql (U) NEGATIVE 2 (11/14/23 4:50 PM) Normal NEGATIVE [facility] Comment on above: Interpretive Data: N egative Cutoff: <300 ng/mL Opiates Screen Ql (U) NEGATIVE 3 (11/14/23 4:50 PM) Normal NEGATIVE [facility] Comment on above: Interpretive Data: N egative Cutoff: <300 ng/mL Phencyclidine Screen method >25 ng/mL Ql (U) NEGATIVE 4 (11/14/23 4:50 PM) Normal NEGATIVE [facility] Comment on above: Interpretive Data: N egative Cutoff: <25 ng/mL These drug screen results are to be used for medical (i.e., treatment) purposes only. Unconfirmed drug screening results must not be used for non-medical purposes (e.g., employment testing, legal testing). U Fentanyl NEGATIVE 9 (11/14/23 4:50 PM) Normal NEGATIVE [facility] Comment on above: Interpretive Data: N egative Cutoff: <5 ng/mL These drug screen results are to be used for medical (i.e., treatment) purposes only. Unconfirmed drug screening results must not be used for non-medical purposes (e.g., employment testing, legal testing). Consent for Treatmenton 10-22 Consent for Treatment [id number] #1.00TIFF Normal [facility] Free T4on 11-14-2023 Free T4 [Mass/Vol] 1.14 ng/dL Normal 0.58-1.64 [facility] Comment on above: Performed By: #### 2 [id number] #### [facility] [address] [place] [address] HEMATOLOGYOrdered By: SYSTEM SYSTEM on 11-14-2023 Basophils/100 WBC (Bld) 0.3 % Normal 0.0 - 2.0 % [facility] Basophils/Leukocytes Auto (Bld) [Pure # fraction] 0.0 E9/L Normal 0.0 - 0.2 E9/L [facility] Eosinophils (Bld) [#/Vol] 0.0 E9/L Normal 0.0 - 0.5 E9/L [facility] Eosinophils/100 WBC (Bld) 0.7 % Normal 0.0 - 8.0 % [facility] Erythrocyte distribution width (RBC) [Ratio] 13.2 % Normal 10.9 - 14.2 % [facility] Hematocrit (Bld) [Volume fraction] 40.4 % Normal 34.0 - 46.0 % [facility] Hemoglobin (Bld) [Mass/Vol] 13.8 g/dL Normal 12.0 - 16.0 gm/dL [facility] Lymphocytes (Bld) [#/Vol] 2.2 E9/L Normal 1.0 - 4.0 E9/L [facility] Lymphocytes/100 WBC (Bld) 36.4 % Normal 14.0 - 50.0 % [facility] MCH (RBC) [Entitic mass] 30.2 pg Normal 27.0 - 34.0 pg [facility] MCHC (RBC) [Mass/Vol] 34.3 g/dL Normal 31.4 - 36.0 gm/dL [facility] MCV (RBC) [Entitic vol] 88.1 fL Normal 80.0 - 100.0 fL [facility] Monocytes (Bld) [#/Vol] 0.5 E9/L Normal 0.2 - 1.0 E9/L [facility] Monocytes/100 WBC (Bld) 7.7 % Normal 4.0 - 14.0 % [facility] Neutrophils (Bld) [#/Vol] 3.3 E9/L Normal 2.0 - 7.5 E9/L [facility] Neutrophils/100 WBC (Bld) 54.9 % Normal 36.0 - 75.0 % [facility] Platelet mean volume (Bld) [Entitic vol] 7.4 fL Normal 6.4 - 10.8 fL [facility] Platelets (Bld) [#/Vol] 233.0 E9/L Normal 150. 0 - 500.0 E9/L [facility] RBC (Bld) [#/Vol] 4.6 E12/L Normal 4.3 - 5.9 E12/L [facility] WBC corrected for nucl RBC Auto (Bld) [#/Vol] 6.0 E9/L Normal 4.0 - 11.0 E9/L [facility] Physician Orderon 11-14-2023 Physician Order [id number] #1.00TIFF Normal [facility] TSHon 11-14-2023 TSH Qn 1.06 m[IU]/L Normal 0.34-5.60 [facility] Comment on above: Performed By: #### 2 [id number] #### [facility] [address] [place] [address] U Drug Screenon 11-14-2023 Amphetamines Screen method >1000 ng/mL Ql (U) Negative Normal NEGATIVE [facility] Comment on above: Result Comment: Nega tive Cutoff: <1000 ng/mL Performed By: #### 2 [id number] #### [facility] [address] [place] [address] Barbiturates Screen Ql (U) Negative Normal NEGATIVE [facility] Comment on above: Result Comment: Nega tive Cutoff: <200 ng/mL Performed By: #### 2 [id number] #### [facility] [address] [place] [address] Benzodiazepines Ql (U) Negative Normal NEGATIVE [facility] Comment on above: Result Comment: Nega tive Cutoff: <200 ng/mL Performed By: #### 2 [id number] #### [facility] [address] [place] [address] Cannabinoids Screen Ql (U) Positive Abnormal NEGATIVE [facility] Comment on above: Result Comment: Crit ical Result Verified by Repeat Analysis No Confirmation Requested by Physician Critical result called to Chelly Mo by [facility] on 11/14/23 at 1804 Result verified by repeat analysis, Unconfirmed by alternate method Negative Cutoff: <50 ng/mL Performed By: #### 2 [id number] #### [facility] [address] [place] [address] Cocaine Ql (U) Negative Normal NEGATIVE [facility] Comment on above: Result Comment: Nega tive Cutoff: <300 ng/mL Performed By: #### 2 [id number] #### [facility] [address] [place] [address] Opiates Screen Ql (U) Negative Normal NEGATIVE [facility] Comment on above: Result Comment: Nega tive Cutoff: <300 ng/mL Performed By: #### 2 [id number] #### [facility] [address] [place] [address] Phencyclidine Screen method >25 ng/mL Ql (U) Negative Normal NEGATIVE [facility] Comment on above: Result Comment: Nega tive Cutoff: <25 ng/mL These drug screen results are to be used for medical (i.e., treatment) purposes only. Unconfirmed drug screening results must not be used for non-medical purposes (e.g., employment testing, legal testing). Performed By: #### 2 [id number] #### [facility] [address] [place] [address] U Fentanyl Negative Normal NEGATIVE [facility] Comment on above: Result Comment: Nega tive Cutoff: <5 ng/mL These drug screen results are to be used for medical (i.e., treatment) purposes only. Unconfirmed drug screening results must not be used for non-medical purposes (e.g., employment testing, legal testing). Performed By: #### 2 [id number] #### [facility] [address] [place] [address] Alanine aminotransferase [En zymatic activity/volume] in Serum or PlasmaOrdered By: Tasha Mehta on 10-27-2023 ALT [Catalytic activity/Vol] 16 U/L Normal 7-52 [facility] Comment on above: Order Comment: Reaso n for Exam Less than 8 weeks gestation of Reason for Exam Postoperative hypothyroidism Performed By: #### C MP, CBC, T4F, HCGQNT, TSH3 wRFLX #### [facility] [address] Albumin [Mass/volume] in Ser um or Plasma by Bromocresol green (BCG) dye binding methoOrdered By: Tasha Mehta on 10-27-2023 Albumin BCG dye [Mass/Vol] 4.7 g/dL 3.5-5.7 [facility] Alkaline phosphatase [Enzyma tic activity/volume] in Serum or PlasmaOrdered By: Tasha Mehta on 10-27-2023 ALP [Catalytic activity/Vol] 57 U/L Normal 34-104 [facility] Comment on above: Order Comment: Reaso n for Exam Less than 8 weeks gestation of Reason for Exam Postoperative hypothyroidism Performed By: #### C MP, CBC, T4F, HCGQNT, TSH3 wRFLX #### [facility] [address] Aspartate aminotransferase [ Enzymatic activity/volume] in Serum or PlasmaOrdered By: Tasha Mehta on 10-27-2023 AST [Catalytic activity/Vol] 17 U/L Normal 13-39 [facility] Comment on above: Order Comment: Reaso n for Exam Less than 8 weeks gestation of Reason for Exam Postoperative hypothyroidism Performed By: #### C MP, CBC, T4F, HCGQNT, TSH3 wRFLX #### [facility] [address] Automated basophil %Ordered By: Tasha Mehta on 10-27-2023 Basophils/100 WBC (Bld) 0.3 % Normal . [facility] Comment on above: Order Comment: Reaso n for Exam Less than 8 weeks gestation of Performed By: #### C MP, CBC, T4F, HCGQNT, TSH3 wRFLX #### [facility] [address] Automated basophil countOrde red By: Tasha Mehta on 10-27-2023 Basophils (Bld) [#/Vol] 0.0 10*3/uL Normal 0.0-0.2 [facility] Comment on above: Order Comment: Reaso n for Exam Less than 8 weeks gestation of Result Comment: PERF ORMED BY: [place] [address] PATHOLOGIST FUEL HANDLER RONEL ROJO M.D. Performed By: #### C MP, CBC, T4F, HCGQNT, TSH3 wRFLX #### [facility] [address] Automated blood monocyte cou ntOrdered By: Tasha Mehta on 10-27-2023 Monocytes (Bld) [#/Vol] 0.6 10*3/uL Normal 0.0-0.8 [facility] Comment on above: Order Comment: Reaso n for Exam Less than 8 weeks gestation of Performed By: #### C MP, CBC, T4F, HCGQNT, TSH3 wRFLX #### [facility] [address] [place] [id number] [facility] Automated eosinophil %Ordere d By: Tasha Mehta on 10-27-2023 Eosinophils/100 WBC (Bld) 0.8 % Normal . [facility] Comment on above: Order Comment: Reaso n for Exam Less than 8 weeks gestation of Performed By: #### C MP, CBC, T4F, HCGQNT, TSH3 wRFLX #### [facility] [address] Automated eosinophil countOr dered By: Tasha Mehta on 10-27-2023 Eosinophils (Bld) [#/Vol] 0.1 10*3/uL Normal 0.0-0.45 [facility] Comment on above: Order Comment: Reaso n for Exam Less than 8 weeks gestation of Performed By: #### C MP, CBC, T4F, HCGQNT, TSH3 wRFLX #### [facility] [address] Automated monocyte %Ordered By: Tasha Mehta on 10-27-2023 Monocytes/100 WBC (Bld) 8.7 % Normal . [facility] Comment on above: Order Comment: Reaso n for Exam Less than 8 weeks gestation of Performed By: #### C MP, CBC, T4F, HCGQNT, TSH3 wRFLX #### [facility] [address] [place] [id number] [facility] Automated neutrophil %Ordere d By: Tasha Mehta on 10-27-2023 Neutrophils/100 WBC (Bld) 53.4 % Normal . [facility] Comment on above: Order Comment: Reaso n for Exam Less than 8 weeks gestation of Performed By: #### C MP, CBC, T4F, HCGQNT, TSH3 wRFLX #### [facility] [address] [place] [id number] [place] Bilirubin.total [Mass/volume ] in Serum or PlasmaOrdered By: Tasha Mehta on 10-27-2023 Bilirubin [Mass/Vol] 0.7 mg/dL Normal 0.3-1.0 [facility] Comment on above: Order Comment: Reaso n for Exam Less than 8 weeks gestation of Reason for Exam Postoperative hypothyroidism Performed By: #### C MP, CBC, T4F, HCGQNT, TSH3 wRFLX #### [facility] [address] [place] [id number] [place] Calcium [Mass/volume] in Ser um or PlasmaOrdered By: Tasha Mehta on 10-27-2023 Calcium [Mass/Vol] 9.6 mg/dL Normal 8.6-10.3 [facility] Comment on above: Order Comment: Reaso n for Exam Less than 8 weeks gestation of Reason for Exam Postoperative hypothyroidism Performed By: #### C MP, CBC, T4F, HCGQNT, TSH3 wRFLX #### [facility] [address] [place] [address] [place] Carbon dioxide, total [Moles /volume] in Serum or PlasmaOrdered By: Tasha Mehta on 10-27-2023 CO2 [Moles/Vol] 23.0 mmol/L Normal 21.0-31.0 [facility] Comment on above: Order Comment: Reaso n for Exam Less than 8 weeks gestation of Reason for Exam Postoperative hypothyroidism Performed By: #### C MP, CBC, T4F, HCGQNT, TSH3 wRFLX #### [facility] [address] [place] [id number] [place] Chloride [Moles/volume] in S yany or PlasmaOrdered By: Tasha Mehta on 10-27-2023 Chloride [Moles/Vol] 105 mmol/L Normal 98-107 [facility] Comment on above: Order Comment: Reaso n for Exam Less than 8 weeks gestation of Reason for Exam Postoperative hypothyroidism Performed By: #### C MP, CBC, T4F, HCGQNT, TSH3 wRFLX #### [facility] [address] [place] [id number] [place] Choriogonadotropin.beta subu nit [Units/volume] in Serum or PlasmaOrdered By: Tasha Mehta on 10-27-2023 HCG.beta subunit Qn 6943.00 m[IU]/mL [facility] Comment on above: Approximate Approxim ate hCG Gestational Age Range (mIU/ml) (weeks)0.2-1 5-50 1-2 50-500 2-3 100-5,000 3-4 500-10,000 4-5 1,000-50,000 5-6 10,000-100,000 6-8 15,000-200,000 8-12 10,000-100,000 Complete Blood Count Auto Di ffon 10-27-2023 Mean Corpuscular HGB Conc 34.1 g/dL Normal 32.0-35.0 [facility] Comment on above: Order Comment: Reaso n for Exam Less than 8 weeks gestation of Performed By: #### C MP, CBC, T4F, HCGQNT, TSH3 wRFLX #### [address] NRBC% 0.1 /100{WBC} Normal 0-0.5 [facility] Comment on above: Order Comment: Reaso n for Exam Less than 8 weeks gestation of Performed By: #### C MP, CBC, T4F, HCGQNT, TSH3 wRFLX #### [address] Comprehensive Metabolic Pane felicia 10-27-2023 Albumin [Mass/Vol] 4.7 g/dL Normal 3.5-5.[address] [facility] Comment on above: Order Comment: Reaso n for Exam Less than 8 weeks gestation of Reason for Exam Postoperative hypothyroidism Performed By: #### C MP, CBC, T4F, HCGQNT, TSH3 wRFLX #### [address] GFR/1.73 sq M.predicted MDRD (S/P/Bld) [Vol rate/Area] mL/min/{1.73_m2} Normal [facility] Comment on above: Order Comment: Reaso n for Exam Less than 8 weeks gestation of Reason for Exam Postoperative hypothyroidism Performed By: #### C MP, CBC, T4F, HCGQNT, TSH3 wRFLX #### [place] [address] [place] Creatinine [Mass/volume] in Serum or PlasmaOrdered By: Tasha Mehta on 10-27-2023 Creatinine [Mass/Vol] 0.70 mg/dL Normal 0.60-1.20 [facility] Comment on above: Order Comment: Reaso n for Exam Less than 8 weeks gestation of Reason for Exam Postoperative hypothyroidism Performed By: #### C MP, CBC, T4F, HCGQNT, TSH3 wRFLX #### [facility] [address] Erythrocyte distribution wid th [Ratio] by Automated countOrdered By: Tasha Mehta on 10-27-2023 Erythrocyte distribution width (RBC) [Ratio] 12.8 % Normal 11.9-15.3 [facility] Comment on above: Order Comment: Reaso n for Exam Less than 8 weeks gestation of Performed By: #### C MP, CBC, T4F, HCGQNT, TSH3 wRFLX #### [facility] [address] Erythrocytes [#/volume] in B lood by Automated countOrdered By: Tasha Mehta on 10-27-2023 RBC (Bld) [#/Vol] 4.64 10*6/uL Normal 3.60-5.00 [facility] Comment on above: Order Comment: Reaso n for Exam Less than 8 weeks gestation of Performed By: #### C MP, CBC, T4F, HCGQNT, TSH3 wRFLX #### [facility] [address] Glucose [Mass/volume] in Ser um or PlasmaOrdered By: Tasha Mehta on 10-27-2023 Glucose [Mass/Vol] 82 mg/dL Normal 70-100 [facility] Comment on above: ADA recommended refe rence rangeRandom Glucose Reference Range is dependent on time and content of last meal. Glucose of more than 200 mg/dL in a nonstressed, ambulatory subject supports the diagnosis of Diabetes Mellitus. Order Comment: Reaso n for Exam Less than 8 weeks gestation of Reason for Exam Postoperative hypothyroidism Result Comment: [place] Glucose Reference Range is dependent on time and content of last meal. Glucose of more than 200 mg/dL in a nonstressed, ambulatory subject supports the diagnosis of Diabetes Mellitus. ADA recommended reference range Performed By: #### C MP, CBC, T4F, HCGQNT, TSH3 wRFLX #### [facility] [address] HCG,Quantitativeon 4 HCG,Quantitative 6943.00 m[iU]/mL Normal Th e [facility] Comment on above: Order Comment: Reaso n for Exam Postoperative hypothyroidism Reason for Exam Vitamin D deficiency Result Comment: Appr oximate Approximate hCG Gestational Age Range (mIU/ml) (weeks) 0.2-1 5-50 1-2 50-500 2-3 100-5,000 3-4 500-10,000 4-5 1,000-50,000 5-6 10,000-100,000 6-8 15,000-200,000 8-12 10,000-100,000 PERFORMED BY: [place] [address] PATHOLOGIST FUEL HANDLER RONEL ROJO M.D. Performed By: #### V [id number], CBC, TSH3 wRFLX, CMP #### [facility] [address] [place] [address] Hematocrit [Volume Fraction] of Blood by Automated countOrdered By: Tasha Mehta on 10-27-2023 Hematocrit (Bld) [Volume fraction] 41.1 % Normal 34.0-46.4 [facility] Comment on above: Order Comment: Reaso n for Exam Less than 8 weeks gestation of Performed By: #### C MP, CBC, T4F, HCGQNT, TSH3 wRFLX #### [facility] [address] [place] [address] Hemoglobin [Mass/volume] in BloodOrdered By: Tasha Mehta on 10-27-2023 Hemoglobin (Bld) [Mass/Vol] 14.0 g/dL Normal 11.8-15.4 [facility] Comment on above: Order Comment: Reaso n for Exam Less than 8 weeks gestation of Performed By: #### C MP, CBC, T4F, HCGQNT, TSH3 wRFLX #### [facility] [address] Leukocytes [#/volume] correc eli for nucleated erythrocytes in Blood by Automated counOrdered By: Tasha Mehta on 10-27-2023 WBC corrected for nucl RBC Auto (Bld) [#/Vol] 6.5 10*3/uL 3.8-11.6 [facility] Leukocytes [#/volume] in Blo od by Automated countOrdered By: Tasha Mehta on 10-27-2023 WBC (Bld) [#/Vol] 6.5 10*3/uL Normal 3.8-11.6 [facility] Comment on above: Order Comment: Reaso n for Exam Less than 8 weeks gestation of Performed By: #### C MP, CBC, T4F, HCGQNT, TSH3 wRFLX #### [facility] [address] [place] [address] Lymphocytes [#/volume] in Bl ood by Automated countOrdered By: Tasha Mehta on 10-27-2023 Lymphocytes (Bld) [#/Vol] 2.4 10*3/uL Normal 1.00-4.8 [facility] Comment on above: Order Comment: Reaso n for Exam Less than 8 weeks gestation of Performed By: #### C MP, CBC, T4F, HCGQNT, TSH3 wRFLX #### [facility] [address] [place] [address] [place] Lymphocytes/100 leukocytes i n Blood by Automated countOrdered By: Tasha Mehta on 10-27-2023 Lymphocytes/100 WBC (Bld) 36.8 % Normal . [facility] Comment on above: Order Comment: Reaso n for Exam Less than 8 weeks gestation of Performed By: #### C MP, CBC, T4F, HCGQNT, TSH3 wRFLX #### [facility] [address] [place] [address] [place] MCH [Entitic mass] by Automa eli countOrdered By: Tasha Mehta on 10-27-2023 MCH (RBC) [Entitic mass] 30.2 pg Normal 24.7-34.3 [facility] Comment on above: Order Comment: Reaso n for Exam Less than 8 weeks gestation of Performed By: #### C MP, CBC, T4F, HCGQNT, TSH3 wRFLX #### [facility] [address] [place] [address] MCHC Auto (RBC) [Mass/Vol]Or dered By: Tasha Mehta on 10-27-2023 MCHC (RBC) [Mass/Vol] 34.1 g/dL 32.0-35.0 [facility] MCV [Entitic volume] by Auto mated countOrdered By: Tasha Mehta on 10-27-2023 MCV (RBC) [Entitic vol] 88.6 fL Normal 80-100 [facility] Comment on above: Order Comment: Reaso n for Exam Less than 8 weeks gestation of Performed By: #### C MP, CBC, T4F, HCGQNT, TSH3 wRFLX #### [facility] [address] [place] [address] Neutrophils [#/volume] in Bl ood by Automated countOrdered By: Tasha Mehta on 10-27-2023 Neutrophils (Bld) [#/Vol] 3.5 10*3/uL Normal 1.8-7.7 [facility] Comment on above: Order Comment: Reaso n for Exam Less than 8 weeks gestation of Performed By: #### C MP, CBC, T4F, HCGQNT, TSH3 wRFLX #### [facility] [address] [place] [address] No Panel InformationOrdered By: Tahsa Mehta on 10-27-2023 Estimated GFR (CKD-EPI) > 60.0 mL/Min [facility] Creatinine Clearance (Chem N/A [facility] Nucleated erythrocytes [Pres ence] in Blood by Automated countOrdered By: Tasha Mehta on 10-27-2023 Nucleated RBC Auto Ql (Bld) 0.1 /100{WBC} 0-0.5 [facility] Platelet mean volume [Entiti c volume] in Blood by Automated countOrdered By: Tasha Mehta on 10-27-2023 Platelet mean volume (Bld) [Entitic vol] 8.0 fL Normal 6.3-10.7 [facility] Comment on above: Order Comment: Reaso n for Exam Less than 8 weeks gestation of Performed By: #### C MP, CBC, T4F, HCGQNT, TSH3 wRFLX #### [facility] [address] Platelets [#/volume] in Bloo d by Automated countOrdered By: Tasha Mehta on 10-27-2023 Platelets (Bld) [#/Vol] 226 10*3/uL Normal 150-450 [facility] Comment on above: Order Comment: Reaso n for Exam Less than 8 weeks gestation of Performed By: #### C MP, CBC, T4F, HCGQNT, TSH3 wRFLX #### [facility] [address] [place] [address] Potassium [Moles/volume] in Serum or PlasmaOrdered By: Tasha Mehta on 10-27-2023 Potassium [Moles/Vol] 4.1 mmol/L Normal 3.5-5.1 [facility] Comment on above: Order Comment: Reaso n for Exam Less than 8 weeks gestation of Reason for Exam Postoperative hypothyroidism Performed By: #### C MP, CBC, T4F, HCGQNT, TSH3 wRFLX #### [facility] [address] [place] [address] Protein [Mass/volume] in Ser um or PlasmaOrdered By: Tasha Mehta on 10-27-2023 Protein [Mass/Vol] 7.4 g/dL Normal 6.4-8.9 [facility] Comment on above: Order Comment: Reaso n for Exam Less than 8 weeks gestation of Reason for Exam Postoperative hypothyroidism Performed By: #### C MP, CBC, T4F, HCGQNT, TSH3 wRFLX #### [facility] [address] [place] [id number] [facility] Serum globulin measurement b y calculation (mass/volume)Ordered By: Tasha Mehta on 10-27-2023 Globulin (S) [Mass/Vol] 2.7 g/dL Normal [facility] Comment on above: Order Comment: Reaso n for Exam Less than 8 weeks gestation of Reason for Exam Postoperative hypothyroidism Performed By: #### C MP, CBC, T4F, HCGQNT, TSH3 wRFLX #### [facility] [address] Serum or plasma albumin/glob ulin mass ratioOrdered By: Tasha Mehta on 10-27-2023 Albumin/Globulin [Mass ratio] 1.7 {ratio} Normal [facility] Comment on above: Order Comment: Reaso n for Exam Less than 8 weeks gestation of Reason for Exam Postoperative hypothyroidism Performed By: #### C MP, CBC, T4F, HCGQNT, TSH3 wRFLX #### [facility] [address] [place] [address] Serum or plasma anion gap de terminationOrdered By: Tasha Mehta on 10-27-2023 Anion gap [Moles/Vol] 11.1 mmol/L Normal 6.0-15.0 [facility] Comment on above: Order Comment: Reaso n for Exam Less than 8 weeks gestation of Reason for Exam Postoperative hypothyroidism Performed By: #### C MP, CBC, T4F, HCGQNT, TSH3 wRFLX #### [facility] [address] [place] [address] Sodium [Moles/volume] in Ser um or PlasmaOrdered By: Tasha Mehta on 10-27-2023 Sodium [Moles/Vol] 135 mmol/L Low 136-145 [facility] Comment on above: Order Comment: Reaso n for Exam Less than 8 weeks gestation of Reason for Exam Postoperative hypothyroidism Performed By: #### C MP, CBC, T4F, HCGQNT, TSH3 wRFLX #### [facility] [address] [place] [address] Thyroid Stim Hormone w/Rflxo n 10-27-2023 Thyroid Stim Hormone w/Rflx 0.22 u[iU]/mL Low 0.45-5.33 [facility] Comment on above: Order Comment: Reaso n for Exam Postoperative hypothyroidism Reason for Exam Vitamin D deficiency Performed By: #### V [id number], CBC, TSH3 wRFLX, CMP #### [facility] [address] Thyrotropin [Units/volume] i n Serum or PlasmaOrdered By: Tasha Mehta on 10-27-2023 TSH Qn 0.22 m[IU]/L 0.45-5.33 [facility] Thyroxine (T4) free [Mass/vo lume] in Serum or PlasmaOrdered By: Tasha Mehta on 10-27-2023 Free T4 [Mass/Vol] 1.36 ng/dL High 0.61-1.12 [facility] Comment on above: Order Comment: Reaso n for Exam Postoperative hypothyroidism Reason for Exam Vitamin D deficiency Performed By: #### V [id number], CBC, TSH3 wRFLX, CMP #### [facility] [address] [place] [address] Urea nitrogen [Mass/volume] in Serum or PlasmaOrdered By: Tasha Mehta on 10-27-2023 Urea nitrogen [Mass/Vol] 17 mg/dL Normal 7-25 [facility] Comment on above: Order Comment: Reaso n for Exam Less than 8 weeks gestation of Reason for Exam Postoperative hypothyroidism Performed By: #### C MP, CBC, T4F, HCGQNT, TSH3 wRFLX #### [place] [address] [place] Choriogonadotropin.beta subu nit [Units/volume] in Serum or PlasmaOrdered By: Tasha Mehta on 09-01-2023 HCG.beta subunit Qn Negative [facility] HCG,Qualitative Rfx to Quant on 09-01-2023 HCG,Qualitative Rfx to Quant Negative Normal [facility] Comment on above: Order Comment: Reaso n for Exam Postoperative hypothyroidism Reason for Exam Irregular menses Result Comment: PERF ORMED BY: [place] [address] PATHOLOGIST FUEL HANDLER RONEL ROJO M.D. Performed By: #### H CG QUAL RFX, TSH3 wRFLX, T4F #### [address] Thyroid Stim Hormone w/Rflxo n 09-01-2023 Thyroid Stim Hormone w/Rflx 12.13 u[iU]/mL High 0.45-5.33 [facility] Comment on above: Order Comment: Reaso n for Exam Postoperative hypothyroidism Reason for Exam Irregular menses Performed By: #### H CG QUAL RFX, TSH3 wRFLX, T4F #### [facility] [address] [place] [address] [facility] Thyrotropin [Units/volume] i n Serum or PlasmaOrdered By: Tasha Mehta on 09-01-2023 TSH Qn 12.13 m[IU]/L 0.45-5.33 [facility] Thyroxine (T4) free [Mass/vo lume] in Serum or PlasmaOrdered By: Tasha Mehta on 09-01-2023 Free T4 [Mass/Vol] 1.02 ng/dL Normal 0.61-1.12 [facility] Comment on above: Order Comment: Reaso n for Exam Postoperative hypothyroidism Reason for Exam Irregular menses Performed By: #### H CG QUAL RFX, TSH3 wRFLX, T4F #### [facility] [address] [place] [address] [facility] Alanine aminotransferase [En zymatic activity/volume] in Serum or PlasmaOrdered By: Tasha Mehta on 06-09-2023 ALT [Catalytic activity/Vol] 11 U/L 7-52 [facility] Albumin [Mass/volume] in Ser um or Plasma by Bromocresol green (BCG) dye binding methoOrdered By: Tasha Mehta on 06-09-2023 Albumin BCG dye [Mass/Vol] 5.0 g/dL 3.5-5.7 [facility] Alkaline phosphatase [Enzyma tic activity/volume] in Serum or PlasmaOrdered By: Tasha Mehta on 06-09-2023 ALP [Catalytic activity/Vol] 60 U/L 34-104 [facility] Aspartate aminotransferase [ Enzymatic activity/volume] in Serum or PlasmaOrdered By: Tasha Mehta on 06-09-2023 AST [Catalytic activity/Vol] 14 U/L 13-39 [facility] Basophils Auto (Bld) [#/Vol] Ordered By: Tasha Mehta on 06-09-2023 Basophils (Bld) [#/Vol] 0.0 10*3/uL 0.0-0.2 [facility] Basophils/100 WBC Auto (Bld) Ordered By: Tasha Fernandezc on 06-09-2023 Basophils/100 WBC (Bld) 0.4 % . [facility] Bilirubin.total [Mass/volume ] in Serum or PlasmaOrdered By: Tasha Mehta on 06-09-2023 Bilirubin [Mass/Vol] 0.5 mg/dL 0.3-1.0 [facility] Calcium [Mass/volume] in Ser um or PlasmaOrdered By: Tasha Mehta on 06-09-2023 Calcium [Mass/Vol] 9.3 mg/dL 8.6-10.3 [facility] Carbon dioxide, total [Moles /volume] in Serum or PlasmaOrdered By: Tasha Mehta on 06-09-2023 CO2 [Moles/Vol] 26.3 mmol/L 21.0-31.0 [facility] Chloride [Moles/volume] in S yany or PlasmaOrdered By: Tasha Mehta on 06-09-2023 Chloride [Moles/Vol] 106 mmol/L 98-107 [facility] Choriogonadotropin.beta subu nit [Units/volume] in Serum or PlasmaOrdered By: Tasha Mehta on 06-09-2023 HCG.beta subunit Qn 0.69 m[IU]/mL [facility] Comment on above: Approximate Approxim ate hCG Gestational Age Range (mIU/ml) (weeks)0.2-1 5-50 1-2 50-500 2-3 100-5,000 3-4 500-10,000 4-5 1,000-50,000 5-6 10,000-100,000 6-8 15,000-200,000 8-12 10,000-100,000 Creatinine [Mass/volume] in Serum or PlasmaOrdered By: Tasha Mehta on 06-09-2023 Creatinine [Mass/Vol] 0.82 mg/dL 0.60-1.20 [facility] Eosinophils Auto (Bld) [#/Vo l]Ordered By: Tasha Mehta on 06-09-2023 Eosinophils (Bld) [#/Vol] 0.0 10*3/uL 0.0-0.45 [facility] Eosinophils/100 WBC Auto (Bl d)Ordered By: Tasha Mehta on 06-09-2023 Eosinophils/100 WBC (Bld) 1.2 % . [facility] Erythrocyte distribution wid th Auto (RBC) [Ratio]Ordered By: Tasha Mehta on 06-09-2023 Erythrocyte distribution width (RBC) [Ratio] 13.2 % 11.9-15.3 [facility] Globulin Calc (S) [Mass/Vol] Ordered By: Tasha Mehta on 06-09-2023 Globulin (S) [Mass/Vol] 2.5 g/dL [facility] Glucose [Mass/volume] in Ser um or PlasmaOrdered By: Tasha Mehta on 06-09-2023 Glucose [Mass/Vol] 78 mg/dL 70-100 [facility] Comment on above: ADA recommended refe rence rangeRandom Glucose Reference Range is dependent on time and content of last meal. Glucose of more than 200 mg/dL in a nonstressed, ambulatory subject supports the diagnosis of Diabetes Mellitus. Hematocrit Auto (Bld) [Volum e fraction]Ordered By: Tasha Mehta on 06-09-2023 Hematocrit (Bld) [Volume fraction] 38.1 % 34.0-46.4 [facility] Hemoglobin [Mass/volume] in BloodOrdered By: Tasha Mehta on 06-09-2023 Hemoglobin (Bld) [Mass/Vol] 13.3 g/dL 11.8-15.4 [facility] Hepatitis Acute Panelon 05-23 HBsAg Screen Negative Normal Negative [facility] Comment on above: Performed By: #### H EPACUTE #### [facility] , Hepatitis A Antibody IgM Negative Normal Negative [facility] Comment on above: Performed By: #### H EPACUTE #### [facility] , Hepatitis B Core Antibody IgM Negative Normal Negative [facility] Comment on above: Performed By: #### H EPACUTE #### [facility] , Hepatitis C Virus Antibody Non-Reactive Normal Non Reactive [facility] Comment on above: Performed By: #### H EPACUTE #### [facility] , Interpretation Hepatitis C Normal . [facility] Comment on above: Result Comment: Not infected with HCV unless early or acute infection is suspected (which may be delayed in an immunocompromised individual), or other evidence exists to indicate HCV infection. Performed at: [facility] [employer] [id number] [employer] Operator: Hank Leung PhD, Phone: [phone] PERFORMED BY: [facility] [address] [place] [address] PATHOLOGIST FUEL HANDLER RONEL ROJO M.D. Performed By: #### H EPACUTE #### [facility] , HBsAg Screen Negative Normal Negative [facility] Comment on above: Performed By: #### H EPACUTE #### [facility] , Hepatitis A Antibody IgM Negative Normal Negative [facility] Comment on above: Performed By: #### H EPACUTE #### [facility] , Hepatitis B Core Antibody IgM Negative Normal Negative [facility] Comment on above: Performed By: #### H EPACUTE #### [facility] , Hepatitis C Virus Antibody Non-Reactive Normal Non Reactive [facility] Comment on above: Performed By: #### H EPACUTE #### [facility] , Interpretation Hepatitis C Normal . [facility] Comment on above: Result Comment: Not infected with HCV unless early or acute infection is suspected (which may be delayed in an immunocompromised individual), or other evidence exists to indicate HCV infection. Performed at: [facility] [employer] [id number] [employer] Operator: Hank Leung PhD, Phone: [phone] PERFORMED BY: [facility] [address] [place] [address] PATHOLOGIST FUEL HANDLER RONEL ROJO M.D. Performed By: #### H EPACUTE #### [facility] , Hepatitis B virus surface Ag [Presence] in Serum or Plasma by ImmunoassayOrdered By: Tasha Mehta on 06-09-2023 HBV surface Ag IA Ql Negative Negative [facility] Hepatitis C virus IgG Ab [Pr esence] in Serum or Plasma by ImmunoassayOrdered By: Tasha Mehta on 06-09-2023 HCV IgG IA Ql Non-Reactive Non Reactive [facility] Leukocytes [#/volume] correc eli for nucleated erythrocytes in Blood by Automated counOrdered By: Tasha Mehta on 06-09-2023 WBC corrected for nucl RBC Auto (Bld) [#/Vol] 3.7 10*3/uL 3.8-11.6 [facility] Lymphocytes Auto (Bld) [#/Vo l]Ordered By: Tasha Mehta on 06-09-2023 Lymphocytes (Bld) [#/Vol] 1.7 10*3/uL 1.00-4.8 [facility] Lymphocytes/100 WBC Auto (Bl d)Ordered By: Tasha Mehta on 06-09-2023 Lymphocytes/100 WBC (Bld) 45.9 % . [facility] MCH Auto (RBC) [Entitic mass ]Ordered By: Tasha Mehta on 06-09-2023 MCH (RBC) [Entitic mass] 31.0 pg 24.7-34.3 [facility] MCHC Auto (RBC) [Mass/Vol]Or dered By: Tasha Mehta on 06-09-2023 MCHC (RBC) [Mass/Vol] 34.9 g/dL 32.0-35.0 [facility] MCV Auto (RBC) [Entitic vol] Ordered By: Tasha Mehta on 06-09-2023 MCV (RBC) [Entitic vol] 88.8 fL 80-100 [facility] Monocytes Auto (Bld) [#/Vol] Ordered By: Tasha Mehta on 06-09-2023 Monocytes (Bld) [#/Vol] 0.3 10*3/uL 0.0-0.8 [facility] Monocytes/100 WBC Auto (Bld) Ordered By: Tasha Mehta on 06-09-2023 Monocytes/100 WBC (Bld) 7.4 % . [facility] Neutrophils Auto (Bld) [#/Vo l]Ordered By: Tasha Mehta on 06-09-2023 Neutrophils (Bld) [#/Vol] 1.7 10*3/uL 1.8-7.7 [facility] Neutrophils/100 WBC Auto (Bl d)Ordered By: Tasha Mehta on 06-09-2023 Neutrophils/100 WBC (Bld) 45.1 % . [facility] No Panel InformationOrdered By: Tasha Mehta on 06-09-2023 Estimated GFR (CKD-EPI) > 60.0 mL/Min [facility] Hepatitis A IgM Antibody Negative Negative [facility] Hepatitis B Core IgM Antibody Negative Negative [facility] Hepatitis C Interpretation See comment . [facility] Comment on above: Not infected with HC V unless early or acute infection issuspected (which may be delayed in an immunocompromisedindividual), or other evidence exists to indicate HCVinfection.Performed at: [facility] [place] [id number] Director: Hank Leung PhD, Phone: [phone] Pharmacy Creatinine Clearance (Chem N/A [facility] Nucleated erythrocytes [Pres ence] in Blood by Automated countOrdered By: Tasha Mehta on 06-09-2023 Nucleated RBC Auto Ql (Bld) 0.1 /100{WBC} 0-0.5 [facility] Platelet mean volume Auto (B ld) [Entitic vol]Ordered By: Tasha Mehta on 06-09-2023 Platelet mean volume (Bld) [Entitic vol] 7.4 fL 6.3-10.7 [facility] Platelets Auto (Bld) [#/Vol] Ordered By: Tasha Mehta on 06-09-2023 Platelets (Bld) [#/Vol] 186 10*3/uL 150-450 [facility] Potassium [Moles/volume] in Serum or PlasmaOrdered By: Tasha Mehta on 06-09-2023 Potassium [Moles/Vol] 3.8 mmol/L 3.5-5.1 [facility] Protein [Mass/volume] in Ser um or PlasmaOrdered By: Tasha Mehta on 06-09-2023 Protein [Mass/Vol] 7.5 g/dL 6.4-8.9 [facility] RBC Auto (Bld) [#/Vol]Ordere d By: Tasha Mehta on 06-09-2023 RBC (Bld) [#/Vol] 4.29 10*6/uL 3.60-5.00 [facility] Serum or plasma albumin/glob ulin mass ratioOrdered By: Tasha Mehta on 06-09-2023 Albumin/Globulin [Mass ratio] 2.0 {ratio} [facility] Serum or plasma anion gap de terminationOrdered By: Tasha Mehta on 06-09-2023 Anion gap [Moles/Vol] 9.5 mmol/L 6.0-15.0 [facility] Sodium [Moles/volume] in Ser um or PlasmaOrdered By: Tasha Mehta on 06-09-2023 Sodium [Moles/Vol] 138 mmol/L 136-145 [facility] Thyrotropin [Units/volume] i n Serum or PlasmaOrdered By: Tasha Mehta on 06-09-2023 TSH Qn 4.70 m[IU]/L 0.45-5.33 [facility] Thyroxine (T4) free [Mass/vo lume] in Serum or PlasmaOrdered By: Tasha Mehta on 06-09-2023 Free T4 [Mass/Vol] 1.01 ng/dL 0.61-1.12 [facility] Urea nitrogen [Mass/volume] in Serum or PlasmaOrdered By: Tasha Mehta on 06-09-2023 Urea nitrogen [Mass/Vol] 17 mg/dL 7-25 [facility] WBC Auto (Bld) [#/Vol]Ordere d By: Tasha Mehta on 06-09-2023 WBC (Bld) [#/Vol] 3.7 10*3/uL 3.8-11.6 [facility] Alanine aminotransferase [En zymatic activity/volume] in Serum or PlasmaOrdered By: Tasha Mehta on 01-06-2023 ALT [Catalytic activity/Vol] 9 U/L Normal 7-52 [facility] Comment on above: Order Comment: Reaso n for Exam Postoperative hypothyroidism Reason for Exam Vitamin D deficiency Performed By: #### V [id number], CBC, TSH3 wRFLX, CMP #### [facility] [address] [place] [address] [place] Albumin [Mass/volume] in Ser um or Plasma by Bromocresol green (BCG) dye binding methoOrdered By: Tasha Mehta on 01-06-2023 Albumin BCG dye [Mass/Vol] 5.2 g/dL 3.5-5.7 [facility] Alkaline phosphatase [Enzyma tic activity/volume] in Serum or PlasmaOrdered By: Tasha Mehta on 01-06-2023 ALP [Catalytic activity/Vol] 86 U/L Normal 34-104 [facility] Comment on above: Order Comment: Reaso n for Exam Postoperative hypothyroidism Reason for Exam Vitamin D deficiency Performed By: #### V [id number], CBC, TSH3 wRFLX, CMP #### [facility] [address] [place] [address] [place] Aspartate aminotransferase [ Enzymatic activity/volume] in Serum or PlasmaOrdered By: Tasha Mehta on 01-06-2023 AST [Catalytic activity/Vol] 14 U/L Normal 13-39 [facility] Comment on above: Order Comment: Reaso n for Exam Postoperative hypothyroidism Reason for Exam Vitamin D deficiency Performed By: #### V [id number], CBC, TSH3 wRFLX, CMP #### [facility] [address] [place] [id number] [place] Automated basophil %Ordered By: Tasha Mehta on 01-06-2023 Basophils/100 WBC (Bld) 0.2 % Normal . [facility] Comment on above: Order Comment: Reaso n for Exam Postoperative hypothyroidism Performed By: #### V [id number], CBC, TSH3 wRFLX, CMP #### [facility] [address] [place] [id number] [place] Automated basophil countOrde red By: Tasha Mehta on 01-06-2023 Basophils (Bld) [#/Vol] 0.0 10*3/uL Normal 0.0-0.2 [facility] Comment on above: Order Comment: Reaso n for Exam Postoperative hypothyroidism Result Comment: PERF ORMED BY: [place] [address] PATHOLOGIST FUEL HANDLER RONEL ROJO M.D. Performed By: #### V [id number], CBC, TSH3 wRFLX, CMP #### [facility] [address] [place] [address] Automated blood monocyte cou ntOrdered By: Tasha Mehta on 01-06-2023 Monocytes (Bld) [#/Vol] 0.3 10*3/uL Normal 0.0-0.8 [facility] Comment on above: Order Comment: Reaso n for Exam Postoperative hypothyroidism Performed By: #### V [id number], CBC, TSH3 wRFLX, CMP #### [facility] [address] [place] [address] Automated eosinophil %Ordere d By: Tasha Mehta on 01-06-2023 Eosinophils/100 WBC (Bld) 1.2 % Normal . [facility] Comment on above: Order Comment: Reaso n for Exam Postoperative hypothyroidism Performed By: #### V [id number], CBC, TSH3 wRFLX, CMP #### [facility] [address] [place] [address] [place] Automated eosinophil countOr dered By: Tasha Mehta on 01-06-2023 Eosinophils (Bld) [#/Vol] 0.1 10*3/uL Normal 0.0-0.45 [facility] Comment on above: Order Comment: Reaso n for Exam Postoperative hypothyroidism Performed By: #### V [id number], CBC, TSH3 wRFLX, CMP #### [facility] [address] [place] [address] [place] Automated monocyte %Ordered By: Tasha Fernandezc on 01-06-2023 Monocytes/100 WBC (Bld) 6.1 % Normal . [facility] Comment on above: Order Comment: Reaso n for Exam Postoperative hypothyroidism Performed By: #### V [id number], CBC, TSH3 wRFLX, CMP #### [facility] [address] [place] [id number] [place] Automated neutrophil %Ordere d By: Tasha Mehta on 01-06-2023 Neutrophils/100 WBC (Bld) 50.8 % Normal . [facility] Comment on above: Order Comment: Reaso n for Exam Postoperative hypothyroidism Performed By: #### V [id number], CBC, TSH3 wRFLX, CMP #### [facility] [address] [place], [place] [id number] [facility] Bilirubin.total [Mass/volume ] in Serum or PlasmaOrdered By: Tasha Mehta on 01-06-2023 Bilirubin [Mass/Vol] 0.5 mg/dL Normal 0.3-1.0 [facility] Comment on above: Order Comment: Reaso n for Exam Postoperative hypothyroidism Reason for Exam Vitamin D deficiency Performed By: #### V [id number], CBC, TSH3 wRFLX, CMP #### [facility] [address] [place], [place] [id number] [place] Calcium [Mass/volume] in Ser um or PlasmaOrdered By: Tasha Mehta on 01-06-2023 Calcium [Mass/Vol] 9.7 mg/dL Normal 8.6-10.3 [facility] Comment on above: Order Comment: Reaso n for Exam Postoperative hypothyroidism Reason for Exam Vitamin D deficiency Performed By: #### V [id number], CBC, TSH3 wRFLX, CMP #### [facility] [address] [place], [place] [id number] [place] Carbon dioxide, total [Moles /volume] in Serum or PlasmaOrdered By: Tasha Mehta on 01-06-2023 CO2 [Moles/Vol] 27.7 mmol/L Normal 21.0-31.0 [facility] Comment on above: Order Comment: Reaso n for Exam Postoperative hypothyroidism Reason for Exam Vitamin D deficiency Performed By: #### V [id number], CBC, TSH3 wRFLX, CMP #### [facility] [address] [place] [id number] [place] Chloride [Moles/volume] in S yany or PlasmaOrdered By: Tasha Mehta on 01-06-2023 Chloride [Moles/Vol] 106 mmol/L Normal 98-107 [facility] Comment on above: Order Comment: Reaso n for Exam Postoperative hypothyroidism Reason for Exam Vitamin D deficiency Performed By: #### V [id number], CBC, TSH3 wRFLX, CMP #### [facility] [address] Complete Blood Count Auto Di ffon 01-06-2023 Mean Corpuscular HGB Conc 34.9 g/dL Normal 32.0-35.0 [facility] Comment on above: Order Comment: Reaso n for Exam Postoperative hypothyroidism Performed By: #### V [id number], CBC, TSH3 wRFLX, CMP #### [facility] [address] NRBC% 0.2 /100{WBC} Normal 0-0.5 [facility] Comment on above: Order Comment: Reaso n for Exam Postoperative hypothyroidism Performed By: #### V [id number], CBC, TSH3 wRFLX, CMP #### [facility] [address] [place] [id number] [facility] Comprehensive Metabolic Pane felicia 01-06-2023 Albumin [Mass/Vol] 5.2 g/dL Normal 3.5-5.[address] [facility] Comment on above: Order Comment: Reaso n for Exam Postoperative hypothyroidism Reason for Exam Vitamin D deficiency Performed By: #### V [id number], CBC, TSH3 wRFLX, CMP #### [facility] [address] [place] [id number] [place] GFR/1.73 sq M.predicted MDRD (S/P/Bld) [Vol rate/Area] mL/min/{1.73_m2} Normal [facility] Comment on above: Order Comment: Reaso n for Exam Postoperative hypothyroidism Reason for Exam Vitamin D deficiency Performed By: #### V [id number], CBC, TSH3 wRFLX, CMP #### [facility] [address] [place] [id number] [facility] Creatinine [Mass/volume] in Serum or PlasmaOrdered By: Tasha Mehta on 01-06-2023 Creatinine [Mass/Vol] 0.77 mg/dL Normal 0.60-1.20 [facility] Comment on above: Order Comment: Reaso n for Exam Postoperative hypothyroidism Reason for Exam Vitamin D deficiency Performed By: #### V [id number], CBC, TSH3 wRFLX, CMP #### [facility] [address] Erythrocyte distribution wid th [Ratio] by Automated countOrdered By: Tasha Mehta on 01-06-2023 Erythrocyte distribution width (RBC) [Ratio] 14.9 % Normal 11.9-15.3 [facility] Comment on above: Order Comment: Reaso n for Exam Postoperative hypothyroidism Performed By: #### V [id number], CBC, TSH3 wRFLX, CMP #### [facility] [address] Erythrocytes [#/volume] in B lood by Automated countOrdered By: Tasha Mehta on 01-06-2023 RBC (Bld) [#/Vol] 4.78 10*6/uL Normal 3.60-5.00 [facility] Comment on above: Order Comment: Reaso n for Exam Postoperative hypothyroidism Performed By: #### V [id number], CBC, TSH3 wRFLX, CMP #### [facility] [address] Glucose [Mass/volume] in Ser um or PlasmaOrdered By: Tasha Mehta on 01-06-2023 Glucose [Mass/Vol] 94 mg/dL Normal 70-100 [facility] Comment on above: ADA recommended refe rence rangeRandom Glucose Reference Range is dependent on time and content of last meal. Glucose of more than 200 mg/dL in a nonstressed, ambulatory subject supports the diagnosis of Diabetes Mellitus. Order Comment: Reaso n for Exam Postoperative hypothyroidism Reason for Exam Vitamin D deficiency Result Comment: [place] om Glucose Reference Range is dependent on time and content of last meal. Glucose of more than 200 mg/dL in a nonstressed, ambulatory subject supports the diagnosis of Diabetes Mellitus. ADA recommended reference range Performed By: #### V [id number], CBC, TSH3 wRFLX, CMP #### [facility] [address] Hematocrit [Volume Fraction] of Blood by Automated countOrdered By: Tasha Mehta on 01-06-2023 Hematocrit (Bld) [Volume fraction] 41.1 % Normal 34.0-46.4 [facility] Comment on above: Order Comment: Reaso n for Exam Postoperative hypothyroidism Performed By: #### V [id number], CBC, TSH3 wRFLX, CMP #### [facility] [address] Hemoglobin [Mass/volume] in BloodOrdered By: Tasha Mehta on 01-06-2023 Hemoglobin (Bld) [Mass/Vol] 14.3 g/dL Normal 11.8-15.4 [facility] Comment on above: Order Comment: Reaso n for Exam Postoperative hypothyroidism Performed By: #### V [id number], CBC, TSH3 wRFLX, CMP #### [facility] [address] [place] [address] Leukocytes [#/volume] correc eli for nucleated erythrocytes in Blood by Automated counOrdered By: Tasha Mehta on 01-06-2023 WBC corrected for nucl RBC Auto (Bld) [#/Vol] 4.1 10*3/uL 3.8-11.6 [facility] Leukocytes [#/volume] in Blo od by Automated countOrdered By: Tasha Mehta on 01-06-2023 WBC (Bld) [#/Vol] 4.1 10*3/uL Normal 3.8-11.6 [facility] Comment on above: Order Comment: Reaso n for Exam Postoperative hypothyroidism Performed By: #### V [id number], CBC, TSH3 wRFLX, CMP #### [facility] [address] [place] [address] [place] Lymphocytes [#/volume] in Bl ood by Automated countOrdered By: Tasha Mehta on 01-06-2023 Lymphocytes (Bld) [#/Vol] 1.7 10*3/uL Normal 1.00-4.8 [facility] Comment on above: Order Comment: Reaso n for Exam Postoperative hypothyroidism Performed By: #### V [id number], CBC, TSH3 wRFLX, CMP #### [facility] [address] [place] [address] [place] Lymphocytes/100 leukocytes i n Blood by Automated countOrdered By: Tasha Mehta on 01-06-2023 Lymphocytes/100 WBC (Bld) 41.7 % Normal . [facility] Comment on above: Order Comment: Reaso n for Exam Postoperative hypothyroidism Performed By: #### V [id number], CBC, TSH3 wRFLX, CMP #### [facility] [address] MCH [Entitic mass] by Automa eli countOrdered By: Tasha Mehta on 01-06-2023 MCH (RBC) [Entitic mass] 30.0 pg Normal 24.7-34.3 [facility] Comment on above: Order Comment: Reaso n for Exam Postoperative hypothyroidism Performed By: #### V [id number], CBC, TSH3 wRFLX, CMP #### [facility] [address] [place] [address] MCHC Auto (RBC) [Mass/Vol]Or dered By: Tasha Mehta on 01-06-2023 MCHC (RBC) [Mass/Vol] 34.9 g/dL 32.0-35.0 [facility] MCV [Entitic volume] by Auto mated countOrdered By: Tasha Mehta on 01-06-2023 MCV (RBC) [Entitic vol] 86.0 fL Normal 80-100 [facility] Comment on above: Order Comment: Reaso n for Exam Postoperative hypothyroidism Performed By: #### V [id number], CBC, TSH3 wRFLX, CMP #### [facility] [address] [place] [address] [place] Neutrophils [#/volume] in Bl ood by Automated countOrdered By: Tasha Mehta on 01-06-2023 Neutrophils (Bld) [#/Vol] 2.1 10*3/uL Normal 1.8-7.7 [facility] Comment on above: Order Comment: Reaso n for Exam Postoperative hypothyroidism Performed By: #### V [id number], CBC, TSH3 wRFLX, CMP #### [facility] [address] No Panel InformationOrdered By: Tasha Mehta on 01-06-2023 Estimated GFR (CKD-EPI) > 60.0 mL/Min [facility] Creatinine Clearance (Chem N/A [facility] Nucleated erythrocytes [Pres ence] in Blood by Automated countOrdered By: Tasha Mehta on 01-06-2023 Nucleated RBC Auto Ql (Bld) 0.2 /100{WBC} 0-0.5 [facility] Platelet mean volume [Entiti c volume] in Blood by Automated countOrdered By: Tasha Mehta on 01-06-2023 Platelet mean volume (Bld) [Entitic vol] 7.5 fL Normal 6.3-10.7 [facility] Comment on above: Order Comment: Reaso n for Exam Postoperative hypothyroidism Performed By: #### V [id number], CBC, TSH3 wRFLX, CMP #### [facility] [address] [place] [address] Platelets [#/volume] in Bloo d by Automated countOrdered By: Tasha Mehta on 01-06-2023 Platelets (Bld) [#/Vol] 202 10*3/uL Normal 150-450 [facility] Comment on above: Order Comment: Reaso n for Exam Postoperative hypothyroidism Performed By: #### V [id number], CBC, TSH3 wRFLX, CMP #### [facility] [address] [place] [address] [place] Potassium [Moles/volume] in Serum or PlasmaOrdered By: Tasha Mehta on 01-06-2023 Potassium [Moles/Vol] 3.8 mmol/L Normal 3.5-5.1 [facility] Comment on above: Order Comment: Reaso n for Exam Postoperative hypothyroidism Reason for Exam Vitamin D deficiency Performed By: #### V [id number], CBC, TSH3 wRFLX, CMP #### [facility] [address] [place] [address] [place] Protein [Mass/volume] in Ser um or PlasmaOrdered By: Tasha Mehta on 01-06-2023 Protein [Mass/Vol] 8.1 g/dL Normal 6.4-8.9 [facility] Comment on above: Order Comment: Reaso n for Exam Postoperative hypothyroidism Reason for Exam Vitamin D deficiency Performed By: #### V [id number], CBC, TSH3 wRFLX, CMP #### [facility] [address] Serum globulin measurement b y calculation (mass/volume)Ordered By: Tasha Mehta on 01-06-2023 Globulin (S) [Mass/Vol] 2.9 g/dL Normal [facility] Comment on above: Order Comment: Reaso n for Exam Postoperative hypothyroidism Reason for Exam Vitamin D deficiency Performed By: #### V [id number], CBC, TSH3 wRFLX, CMP #### [facility] [address] Serum or plasma albumin/glob ulin mass ratioOrdered By: Tasha Mehta on 01-06-2023 Albumin/Globulin [Mass ratio] 1.8 {ratio} Normal [facility] Comment on above: Order Comment: Reaso n for Exam Postoperative hypothyroidism Reason for Exam Vitamin D deficiency Performed By: #### V [id number], CBC, TSH3 wRFLX, CMP #### [facility] [address] [place] [address] Serum or plasma anion gap de terminationOrdered By: Tasha Mehta on 01-06-2023 Anion gap [Moles/Vol] 9.1 mmol/L Normal 6.0-15.0 [facility] Comment on above: Order Comment: Reaso n for Exam Postoperative hypothyroidism Reason for Exam Vitamin D deficiency Performed By: #### V [id number], CBC, TSH3 wRFLX, CMP #### [facility] [address] [place] [id number] [place] Sodium [Moles/volume] in Ser um or PlasmaOrdered By: Tasha Mehta on 01-06-2023 Sodium [Moles/Vol] 139 mmol/L Normal 136-145 [facility] Comment on above: Order Comment: Reaso n for Exam Postoperative hypothyroidism Reason for Exam Vitamin D deficiency Performed By: #### V [id number], CBC, TSH3 wRFLX, CMP #### [facility] [address] [place] [address] Thyroid Stim Hormone w/Rflxo n 01-06-2023 Thyroid Stim Hormone w/Rflx 1.34 u[iU]/mL Normal 0.45-5.33 [facility] Comment on above: Order Comment: Reaso n for Exam Postoperative hypothyroidism Reason for Exam Vitamin D deficiency Performed By: #### V [id number], CBC, TSH3 wRFLX, CMP #### [facility] [address] [place] [address] Thyrotropin [Units/volume] i n Serum or PlasmaOrdered By: Tasha Mehta on 01-06-2023 TSH Qn 1.34 m[IU]/L 0.45-5.33 [facility] Urea nitrogen [Mass/volume] in Serum or PlasmaOrdered By: Tasha Mehta on 01-06-2023 Urea nitrogen [Mass/Vol] 10 mg/dL Normal 7-25 [facility] Comment on above: Order Comment: Reaso n for Exam Postoperative hypothyroidism Reason for Exam Vitamin D deficiency Performed By: #### V [id number], CBC, TSH3 wRFLX, CMP #### [facility] [address] [place] [address] Vitamin D 25 Hydroxy Totalon 01-06-2023 Vitamin D 25 Hydroxy Total 34.5 ng/mL Normal 30-100 [facility] Comment on above: Order Comment: Reaso n for Exam Postoperative hypothyroidism Reason for Exam Vitamin D deficiency Result Comment: [place]ICKEY MIN D STATUS 25(OH)VITAMIN D RANGE (ng/mL) Deficient <20 Insufficient 20 to <30 Sufficient 30 to 100 Reference: Yola MF,Melony NC, Loulou-Fede BHATT, et al. Evaluation,treatment, and prevention of vitamin D deficiency; an Endocrine Society clinical practice guideline. JCEM. 2010; 96(7):1911-30. PERFORMED BY: [place] [address] PATHOLOGIST FUEL HANDLER RONEL ROJO M.D. Performed By: #### V [id number], CBC, TSH3 wRFLX, CMP #### [facility] [address] Vitamin D+Metabolites [Mass/ volume] in Serum or PlasmaOrdered By: Tasha Mehta on 01-06-2023 Vitamin D+Metabolites [Mass/Vol] 34.5 ng/mL 30-100 [facility] Comment on above: VITAMIN D STATUS 25( [place])VITAMIN D RANGE (ng/mL) Deficient <20 Insufficient 20 to <30Sufficient 30 to 100Reference: Yola MF,Melony BRADY, Adiel BHATT, et al. Evaluation,treatment, and prevention of vitamin D deficiency; an Endocrine Society clinical practice guideline. JCEM. 2010; 96(7):1911-30. SPINAL INJECTIONon 2 Arlene Titus MD - [...] verified and consents confirmed. PROCEDURE DETAILS: The technical support representative's and physician's hands were washed immediately prior to the procedure using a chlorhexidine soap or sanitized using ethyl alcohol hand hand ii thermal cutter. Hat, mask, and sterile gloves were used [...] and earlier as needed. Note angulation above [facility] Radiology Study observation (narrative) [facility] RAPID TOX SCREEN,URINEon AMPHETAMINE Negative Normal NEGATIVE [facility] Comment on above: Result Comment: <500 ng/ml CUTOFF BARBITURATES Negative Normal NEGATIVE [facility] Comment on above: Result Comment: <200 ng/ml CUTOFF BENZODIAZEPINES Negative Normal NEGATIVE [facility] Comment on above: Result Comment: <150 ng/ml CUTOFF BUPRENORPHINE Negative Normal NEGATIVE [facility] Comment on above: Result Comment: <10 ng/ml CUTOFF CANNABINOIDS Negative Normal NEGATIVE [facility] Comment on above: Result Comment: <50 ng/ml CUTOFF COCAINE Negative Normal NEGATIVE [facility] Comment on above: Result Comment: <150 ng/ml CUTOFF METHADONE Negative Normal NEGATIVE [facility] Comment on above: Result Comment: <200 ng/ml CUTOFF METHAMPHETAMINE Negative Normal NEGATIVE [facility] Comment on above: Result Comment: <500 ng/ml CUTOFF OPIATES Negative Normal NEGATIVE [facility] Comment on above: Result Comment: <100 ng/ml CUTOFF OXYCODONE Positive Abnormal NEGATIVE [facility] Comment on above: Result Comment: <100 ng/ml CUTOFF *Unconfirmed Screening Result* Unconfirmed screening results are to be used only for medical treatment purposes. PHENCYCLIDINE Negative Normal NEGATIVE [facility] Comment on above: Result Comment: <25 ng/ml CUTOFF PROPOXYPHENE Negative Normal NEGATIVE [facility] Comment on above: Result Comment: <300 ng/ml CUTOFF TRICYCLIC ANTIDEPRESSANTS Negative Normal NEGATIVE [facility] Comment on above: Result Comment: <300 ng/ml CUTOFF URINE HCG QUALon 01-24-2022 Beta HCG ( test) Ql (U) Negative Normal [facility] XR SACRUM/COCCYX 2+ VWon XR SACRUM/COCCYX [...] IMPRESSION: 1. No acute osseous abnormality. Normal [facility] XR SPINE LUMBOSACRAL AP AND LATERALon [...] IMPRESSION: 1. No acute osseous abnormality. Normal [facility] SMALL JOINT/BURSA INJECTION AND/OR ASPIRATION: R L3-L4 interspinous bursaon 12-28-2021 Radiology Study observation (narrative) [facility] SMALL JOINT/BURSA INJECTION AND/OR ASPIRATION: R L5-S1 interspinous bursaon 12-28-2021 Radiology Study observation (narrative) [facility] No Panel Informationon 12-09 [facility] SMALL JOINT/BURSA INJECTION AND/OR ASPIRATION: R L3-L4 [...] consent. The patient was prepped with alcohol. [facility] SMALL JOINT/BURSA INJECTION AND/OR ASPIRATION: R L5-S1 [...] consent. The patient was prepped with alcohol. [facility] MR Lumbar spine WO contrasto n 12-06-2021 [...] and facet arthropathy. RADIOLOGY Jose Luis Valentine MD - 12/06/2021 EXAM: MRI SPINE LUMBAR WITHOUT [...] the lower lumbar spine, not significant change.. [facility] MR Lumbar spine WO contrastO rdered By: Jose Luis Valentine on 12-06-2021 [facility] Work Phone: MRI SPINE LUMBAR WITHOUT CON [...] lower lumbar spine, not significant change.. Normal [facility] MR Lumbar spine WO contrasto n 12-04-2021 Radiology Study observation (narrative) [facility] MR Sacrum WO contraston - IMPRESSION: Resolution of the right sacral bone [...] of the right sacral bone marrow edema. [facility] Radiology Study observation (narrative) [facility] MR Sacrum WO contrastOrdered By: Bruno Guzman on 12-04-2021 [facility] Work Phone: MRI SACRUM WITHOUT CONTRASTo n [...] the right sacral bone marrow edema. Normal [facility] LOWER EXTREMITY INJECTIONon 12-02-2021 Radiology Study observation (narrative) [facility] LOWER EXTREMITY INJECTIONon 11-25-2021 Zhanna Villeda 12/02/2021 [...] fashion. The patient was prepped with alcohol. [facility] CT ABDOMEN/PELVIS WITH CONTR Laverne 10-29-2021 CT [...] acute hepatic inflammation. 4. Normal appendix. Normal [facility] SPINE LUMBAR WITHOUT CONTRAST EXAM: [...] aspect of the S3 sacral segment. Normal [facility] CBCon 10-28-2021 ABSOLUTE BAS 0.0 10*3/uL Normal 0.0-0.2 [facility] Comment on above: Performed By: #### L IVR, ACBC, CHEM7F, SHCGT, LIPA2 #### Testing performed at [facility] [address] [place] [address] ABSOLUTE EOS 0.10 10*3/uL Normal 0.0-0.7 [facility] Comment on above: Performed By: #### L IVR, ACBC, CHEM7F, SHCGT, LIPA2 #### Testing performed at [address] [place] [address] ABSOLUTE NEUTROPHIL COUNT 3.5 10*3/uL Normal 1.4-6.5 [facility] Comment on above: Performed By: #### L IVR, ACBC, CHEM7F, SHCGT, LIPA2 #### Testing performed at [address] [address] Basophils/100 WBC (Bld) 0.4 % Normal 0.0-2.0 [facility] Comment on above: Performed By: #### L IVR, ACBC, CHEM7F, SHCGT, LIPA2 #### Testing performed at [address] [address] DTYPE AUTO DIFF Normal [facility] Comment on above: Performed By: #### L IVR, ACBC, CHEM7F, SHCGT, LIPA2 #### Testing performed at [address] [address] Eosinophils/100 WBC (Bld) 0.7 % Normal 0.0-11.0 [facility] Comment on above: Performed By: #### L IVR, ACBC, CHEM7F, SHCGT, LIPA2 #### Testing performed at [address] [address] Lymphocytes (Bld) [#/Vol] 2.90 10*3/uL Normal 1.2-3.4 [facility] Comment on above: Performed By: #### L IVR, ACBC, CHEM7F, SHCGT, LIPA2 #### Testing performed at [address] [address] Lymphocytes/100 WBC (Bld) 41.4 % Normal 20.0-55.0 [facility] Comment on above: Performed By: #### L IVR, ACBC, CHEM7F, SHCGT, LIPA2 #### Testing performed at [address] [address] Monocytes (Bld) [#/Vol] 0.6 10*3/uL Normal 0.0-0.7 [facility] Comment on above: Performed By: #### L IVR, ACBC, CHEM7F, SHCGT, LIPA2 #### Testing performed at [address] [address] Monocytes/100 WBC (Bld) 8.6 % Normal 0.0-10.0 [facility] Comment on above: Performed By: #### L IVR, ACBC, CHEM7F, SHCGT, LIPA2 #### Testing performed at [address] [address] Neutrophils/100 WBC (Bld) 48.9 % Normal 37.0-75.0 [facility] Comment on above: Performed By: #### L IVR, ACBC, CHEM7F, SHCGT, LIPA2 #### Testing performed at [address] [address] Erythrocyte distribution width (RBC) [Ratio] 13.7 % Normal 11.5-14.5 [facility] Comment on above: Performed By: #### L IVR, ACBC, CHEM7F, SHCGT, LIPA2 #### Testing performed at [address] [address] Hematocrit (Bld) [Volume fraction] 39.2 % Normal 36.0-48.0 [facility] Comment on above: Performed By: #### L IVR, ACBC, CHEM7F, SHCGT, LIPA2 #### Testing performed at [address] [address] Hemoglobin (Bld) [Mass/Vol] 13.5 g/dL Normal 12.0-16.0 [facility] Comment on above: Performed By: #### L IVR, ACBC, CHEM7F, SHCGT, LIPA2 #### Testing performed at [address] [address] MCH (RBC) [Entitic mass] 30.2 pg Normal 26.0-35.0 [facility] Comment on above: Performed By: #### L IVR, ACBC, CHEM7F, SHCGT, LIPA2 #### Testing performed at [address] [address] MCHC (RBC) [Mass/Vol] 34.4 g/dL Normal 27.0-37.0 [facility] Comment on above: Performed By: #### L IVR, ACBC, CHEM7F, SHCGT, LIPA2 #### Testing performed at [address] [address] MCV (RBC) [Entitic vol] 87.8 fL Normal 80.0-100.0 [facility] Comment on above: Performed By: #### L IVR, ACBC, CHEM7F, SHCGT, LIPA2 #### Testing performed at [address] [address] Platelet mean volume (Bld) [Entitic vol] 6.7 fL Low 7.4-11.0 [facility] Comment on above: Performed By: #### L IVR, ACBC, CHEM7F, SHCGT, LIPA2 #### Testing performed at [address] [address] Platelets (Bld) [#/Vol] 231 10*3/uL Normal 130.0-400.0 [facility] Comment on above: Performed By: #### L IVR, ACBC, CHEM7F, SHCGT, LIPA2 #### Testing performed at [address] [address] RBC (Bld) [#/Vol] 4.46 10*6/uL Normal 4.0-5.4 [facility] Comment on above: Performed By: #### L IVR, ACBC, CHEM7F, SHCGT, LIPA2 #### Testing performed at [address] [address] WBC (Bld) [#/Vol] 7.1 10*3/uL Normal 3.6-11.0 [facility] Comment on above: Performed By: #### L IVR, ACBC, CHEM7F, SHCGT, LIPA2 #### Testing performed at [address] [address] CHEM 7 FASTINGon 10-28-2021 Chloride [Moles/Vol] 107 mmol/L Normal 98-107 [facility] Comment on above: Performed By: #### L IVR, ACBC, CHEM7F, SHCGT, LIPA2 #### Testing performed at [address] [address] CO2 [Moles/Vol] 23 mmol/L Normal 22-30 [facility] Comment on above: Performed By: #### L IVR, ACBC, CHEM7F, SHCGT, LIPA2 #### Testing performed at [place] [id number] Creatinine [Mass/Vol] 0.94 mg/dL Normal 0.52-1.04 [facility] Comment on above: Performed By: #### L IVR, ACBC, CHEM7F, SHCGT, LIPA2 #### Testing performed at [place] [id number] EST. GFR, 93 ml/min/1.73sq.m [facility] Comment on above: Performed By: #### L IVR, ACBC, CHEM7F, SHCGT, LIPA2 #### Testing performed at [place] [id number] EST. GFR,Non 77 ml/min/1.73sq.m [facility] Comment on above: Performed By: #### L IVR, ACBC, CHEM7F, SHCGT, LIPA2 #### [place] [address] GFR Information Average GFR for 20-29 years old = 116. Normal [facility] Comment on above: Result Comment: Precise Winder zina Kidney disease, GFR = <60. Kidney failure, GFR = <15. The GFR estimate is not adjusted for extreme body surface area or acute process, nor has it been validated for women or ethnic groups other than and . Performed By: #### L IVR, ACBC, CHEM7F, SHCGT, LIPA2 #### Testing performed at [place] [id number] Glucose [Mass/Vol] 81 mg/dL Normal 70-100 [facility] Comment on above: Result Comment: NORMAL <100 mg/dL PREDIABETES 101-126 mg/dL DIABETES 126 mg/dL or higher Performed By: #### L IVR, ACBC, CHEM7F, SHCGT, LIPA2 #### Testing performed at [address] [address] Potassium [Moles/Vol] 3.2 mmol/L Low 3.5-5.1 [facility] Comment on above: Performed By: #### L IVR, ACBC, CHEM7F, SHCGT, LIPA2 #### Testing performed at [address] [address] Sodium [Moles/Vol] 138 mmol/L Normal 136-145 [facility] Comment on above: Performed By: #### L IVR, ACBC, CHEM7F, SHCGT, LIPA2 #### Testing performed at [address] [address] Urea nitrogen [Mass/Vol] 25 mg/dL High 7-20 [facility] Comment on above: Performed By: #### L IVR, ACBC, CHEM7F, SHCGT, LIPA2 #### Testing performed at [address] [address] LIPASE,SERUMon 10-28-2021 LIPASE,SERUM 38 U/L Normal 23-300 [facility] Comment on above: Performed By: #### L IVR, ACBC, CHEM7F, SHCGT, LIPA2 #### Testing performed at [address] [address] LIVER PANELon 10-28-2021 Albumin [Mass/Vol] 4.9 g/dL Normal 3.5-5.0 [facility] Comment on above: Performed By: #### L IVR, ACBC, CHEM7F, SHCGT, LIPA2 #### Testing performed at [address] [place] [address] ALP [Catalytic activity/Vol] 56 U/L Normal 38-126 [facility] Comment on above: Performed By: #### L IVR, ACBC, CHEM7F, SHCGT, LIPA2 #### Testing performed at [address] [place] [address] ALT [Catalytic activity/Vol] 25 U/L Normal 14-54 [facility] Comment on above: Performed By: #### L IVR, ACBC, CHEM7F, SHCGT, LIPA2 #### Testing performed at [address] [address] AST [Catalytic activity/Vol] 19 U/L Normal 15-41 [facility] Comment on above: Performed By: #### L IVR, ACBC, CHEM7F, SHCGT, LIPA2 #### Testing performed at [address] [address] Bilirubin [Mass/Vol] 0.5 mg/dL Normal 0.2-1.2 [facility] Comment on above: Performed By: #### L IVR, ACBC, CHEM7F, SHCGT, LIPA2 #### Testing performed at [address] [address] Bilirubin.indirect [Mass/Vol] 0.1 mg/dL Normal 0.0-0.2 [facility] Comment on above: Performed By: #### L IVR, ACBC, CHEM7F, SHCGT, LIPA2 #### Testing performed at [address] [address] Protein [Mass/Vol] 8.4 g/dL High 6.3-8.2 [facility] Comment on above: Performed By: #### L IVR, ACBC, CHEM7F, SHCGT, LIPA2 #### Testing performed at [address] [address] SERUM HCG QUALon 10-28-2021 SERUM BETA HCG,QUAL Negative Normal NEGATIVE [facility] Comment on above: Performed By: #### L IVR, ACBC, CHEM7F, SHCGT, LIPA2 #### Testing performed at [address] [address] URINE MACROSCOPICon 10-29-19 Bilirubin Ql (U) MODERATE Abnormal NEGATIVE [facility] Comment on above: Performed By: #### U KARIN, UMAC #### Testing performed at [address] [address] Clarity (U) CLEAR Normal CLEAR [facility] Comment on above: Performed By: #### U KARIN, UMAC #### Testing performed at [address] [address] Color (U) YELLOW Normal YELLOW [facility] Comment on above: Performed By: #### U KARIN, UMAC #### Testing performed at [address] [address] Glucose Ql (U) Negative Normal NEGATIVE [facility] Comment on above: Performed By: #### U KARIN, UMAC #### Testing performed at [address] [address] pH (U) 5.5 [pH] Normal 5.0-7.0 [facility] Comment on above: Performed By: #### U KARIN, UMAC #### Testing performed at [address] [address] Protein (U) [Mass/Vol] 30 mg/dL Abnormal NEGATIVE [facility] Comment on above: Performed By: #### U KARIN, UMAC #### Testing performed at [address] [address] URINE HEMOGLOBIN Negative Normal NEGATIVE [facility] Comment on above: Performed By: #### U KARIN, UMAC #### Testing performed at [address] [address] URINE KETONE TRACE Abnormal NEGATIVE [facility] Comment on above: Performed By: #### U KARIN, UMAC #### Testing performed at [address] [address] URINE LEUKOTEST Negative Normal NEGATIVE [facility] Comment on above: Performed By: #### U KARIN, UMAC #### Testing performed at [address] [address] URINE NITRATES Negative Normal NEGATIVE [facility] Comment on above: Performed By: #### U KARIN, UMAC #### Testing performed at [address] [address] URINE SPEC GRAVITY >1.030 High 1.010-1.025 [facility] Comment on above: Performed By: #### U KARIN, UMAC #### Testing performed at [address] [address] Urobilinogen Qn (U) 1.0 {Madhav'U}/dL Normal 0.2-1.0 [facility] Comment on above: Performed By: #### U KARIN, UMAC #### Testing performed at [address] [address] URINE MICROSCOPICon 10-29-19 22 BACTERIA TRACE Abnormal NEGATIVE [facility] Comment on above: Performed By: #### U KARIN, UMAC #### Testing performed at [address] [address] CASTS NONE Normal NONE [facility] Comment on above: Performed By: #### U KARIN, UMAC #### Testing performed at [address] [address] CRYSTAL NONE Normal NONE [facility] Comment on above: Performed By: #### U KARIN, UMAC #### Testing performed at [address] [address] Epithelial cells LM Ql (Urine sed) 1 TO 5 Normal [facility] Comment on above: Performed By: #### U KARIN, UMAC #### Testing performed at [address] [address] Mucus Ql (Urine sed) 1+ Abnormal NEGATIVE [facility] Comment on above: Performed By: #### U KARIN, UMAC #### Testing performed at [address] [address] URINE COMMENT CULTURE CRITERIA NOT MET, NO CULTURE PERFORMED. Normal [facility] Comment on above: Performed By: #### U KARIN, UMAC #### Testing performed at [address] [address] URINE RBC'S Negative Normal NEGATIVE [facility] Comment on above: Performed By: #### U KARIN, UMAC #### Testing performed at [address] [address] URINE WBC'S 1 TO 5 Normal NEGATIVE [facility] Comment on above: Performed By: #### U KARIN, UMAC #### Testing performed at [address] [address] MRI SACRUM WITHOUT CONTRASTo n 10-20-2021 MRI [...] subluxation. 2. The coccyx is normal Normal [facility] MR Lumbar spine WO contrasto n [...] or foraminal stenosis at any visualized level. [facility] Radiology Study observation (narrative) [facility] MR Lumbar spine WO contrastO rdered By: Bret De La Cruz on 10-14-2021 [facility] Work Phone: MRI SPINE LUMBAR WITHOUT CON [...] foraminal stenosis at any visualized level. Normal [facility] XR HIP RIGHT 2 VIEWSon 10-14 XR HIP RIGHT 2 VIEWS EXAM: XR HIP RIGHT 2 VIEWS HISTORY: Right hip pain COMPARISON: None. TECHNIQUE: 3 views FINDINGS: Bilateral hip joint spaces are intact. Osseous pelvic ring is intact. There is no fracture or dislocation. No evidence of femoral head osteonecrosis. IMPRESSION: No acute findings Normal [facility] XR Hip - right 2 Viewson [...] head osteonecrosis. IMPRESSION IMPRESSION: No acute findings [facility] - right 2 ViewsOrdere d By: Pablo Orosco on 10-14-2021 [facility] Work Phone: URINALYSIS, MACROon 10-12-19 22 Bilirubin Ql (U) Negative NEGATIVE [facility] Clarity (U) CLEAR CLEAR [facility] Color (U) YELLOW YELLOW [facility] Glucose Test strip (U) [Mass/Vol] Negative NEGATIVE mg/dl [facility] Hemoglobin Ql (U) Negative NEGATIVE [facility] Ketones (U) [Mass/Vol] Negative NEGAT THEA mg/dl [facility] Leukocyte esterase Test strip Ql (U) Negative NEGATIVE [facility] Nitrite Ql (U) Negative NEGATIVE [facility] pH (U) 6.0 [pH] [facility] Protein Ql (U) Negative NEGATIVE mg/dl [facility] Specific gravity (U) [Rel density] 1.020 [facility] Urobilinogen (U) [Mass/Vol] 0.2 mg/dL [facility] URINE MACROSCOPICon 10-12-19 Bilirubin Ql (U) Negative Normal NEGATIVE [facility] Clarity (U) CLEAR Normal CLEAR [facility] Color (U) YELLOW Normal YELLOW [facility] Glucose Ql (U) Negative Normal NEGATIVE [facility] pH (U) 6.0 [pH] Normal 5.0-7.0 [facility] URINE HEMOGLOBIN Negative Normal NEGATIVE [facility] URINE KETONE Negative Normal NEGATIVE [facility] URINE LEUKOTEST Negative Normal NEGATIVE [facility] URINE NITRATES Negative Normal NEGATIVE [facility] URINE SPEC GRAVITY 1.020 Normal 1.010-1.025 [facility] URINE TOTAL PROTEIN Negative Normal NEGATIVE [facility] Urobilinogen Qn (U) 0.2 {Madhav'U}/dL Normal 0.2-1.0 [facility] XR SACRUM/COCCYX 2+ VWon XR SACRUM/COCCYX 2+ VW EXAM: XR SACRUM/COCCYX 2+ VW HISTORY: fall COMPARISON: None. TECHNIQUE: 3 views FINDINGS: The sacral alae are normal. There is cortical irregularity of the distal coccygeal segment, suggestive for nondisplaced coccygeal fracture. Pelvic phleboliths. IMPRESSION: Findings suggestive for nondisplaced coccygeal fracture. Normal [facility] XR SPINE LUMBOSACRAL AP AND LATERALon 10-11-2021 XR SPINE LUMBOSACRAL AP AND LATERAL EXAM: XR SPINE LUMBOSACRAL AP AND LATERAL HISTORY: fall COMPARISON: None. TECHNIQUE: 3 views FINDINGS: Normal alignment. No evidence of fracture/dislocation or significant spondylosis. Moderate retained stool noted in the colon. IMPRESSION: Unremarkable. Normal [facility] XR Sacrum and Coccyx 2 Views [...] IMPRESSION: Findings suggestive for nondisplaced coccygeal fracture. [facility] Radiology Study observation (narrative) [facility] XR Spine lumbosacral junctio n Viewson [...] noted in the colon. IMPRESSION IMPRESSION: Unremarkable. [facility] Radiology Study observation (narrative) [facility] X[facility] Spine lumbosacral junctio n ViewsOrdered By: Ceasar August on 10-11-2021 [facility] Work Phone: POC Urinalysis Dipstick,Auto UCon 08-20-2021 Bilirubin Ql (U) Negative Negative [facility] Clarity, UA Clear Clear [facility] Color (U) Yellow Yellow, Light Yellow, Dark Yellow [facility] Glucose Ql (U) Negative Normal, Negative mg/dL [facility] Hemoglobin Ql (U) Moderate Abnormal Negative [facility] Interpretation and review of laboratory results Abnormal [facility] Ketones Ql (U) Negative Negative mg/dL [facility] Leukocyte esterase Test strip Ql (U) Small Abnormal Negative [facility] Nitrite Ql (U) Negative Negative [facility] pH (U) 6.0 [pH] [facility] Protein Ql (U) 300 Abnormal Negative mg/dL [facility] Specific gravity (U) [Rel density] 1.030 Abnormal [facility] Urobilinogen Qn (U) 0.2 mg/dL <2.0, 0. 2, Normal, Negative, 1.0, 2.0, <1.0 [facility] CBCon 05-30-2021 ABSOLUTE BAS 0.0 10*3/uL Normal 0.0-0.2 [facility] ABSOLUTE EOS 0.00 10*3/uL Normal 0.0-0.7 [facility] ABSOLUTE NEUTROPHIL COUNT 1.9 10*3/uL Normal 1.4-6.5 [facility] Basophils/100 WBC (Bld) 0.9 % Normal 0.0-2.0 [facility] DTYPE AUTO DIFF Normal [facility] Eosinophils/100 WBC (Bld) 1.2 % Normal 0.0-11.0 [facility] Lymphocytes (Bld) [#/Vol] 1.70 10*3/uL Normal 1.2-3.4 [facility] Lymphocytes/100 WBC (Bld) 41.2 % Normal 20.0-55.0 [facility] Monocytes (Bld) [#/Vol] 0.4 10*3/uL Normal 0.0-0.7 [facility] Monocytes/100 WBC (Bld) 10.1 % High 0.0-10.0 [facility] Neutrophils/100 WBC (Bld) 46.6 % Normal 37.0-75.0 [facility] Erythrocyte distribution width (RBC) [Ratio] 12.2 % Normal 11.5-14.5 [facility] Hematocrit (Bld) [Volume fraction] 42.0 % Normal 36.0-48.0 [facility] Hemoglobin (Bld) [Mass/Vol] 14.3 g/dL Normal 12.0-16.0 [facility] MCH (RBC) [Entitic mass] 30.1 pg Normal 26.0-35.0 [facility] MCHC (RBC) [Mass/Vol] 34.1 g/dL Normal 27.0-37.0 [facility] MCV (RBC) [Entitic vol] 88.2 fL Normal 80.0-100.0 [facility] Platelet mean volume (Bld) [Entitic vol] 7.2 fL Low 7.4-11.0 [facility] Platelets (Bld) [#/Vol] 201 10*3/uL Normal 130.0-400.0 [facility] RBC (Bld) [#/Vol] 4.76 10*6/uL Normal 4.0-5.4 [facility] WBC (Bld) [#/Vol] 4.0 10*3/uL Normal 3.6-11.0 [facility] CBC, EDIF, PLATELETon 2021 ABSOLUTE BASOPHIL COUNT 0.0 10*3/uL 0.0 - 0.2 10*3/uL [facility] Basophils/100 WBC (Bld) 0.9 % 0.0 - 2.0 % [facility] Differential cell count method Nom (Bld) AUTO DIFF % [facility] Eosinophils (Bld) [#/Vol] 0.00 10*3/uL 0.0 - 0.7 10*3/uL [facility] Eosinophils/100 WBC (Bld) 1.2 % 0.0 - 11.0 % [facility] Erythrocyte distribution width (RBC) [Ratio] 12.2 % 11.5 - 14.5 % [facility] Hematocrit (Bld) [Volume fraction] 42.0 % 36.0 - 48.0 % [facility] Hemoglobin (Bld) [Mass/Vol] 14.3 g/dL [facility] Interpretation and review of laboratory results Abnormal [facility] Lymphocytes (Bld) [#/Vol] 1.70 10*3/uL 1.2 - 3.4 10*3/uL [facility] Lymphocytes/100 WBC (Bld) 41.2 % 20.0 - 55.0 % [facility] MCH (RBC) [Entitic mass] 30.1 pg 26.0 - 35.0 PG [facility] MCHC (RBC) [Mass/Vol] 34.1 g/dL [facility] MCV (RBC) [Entitic vol] 88.2 fL [facility] Monocytes (Bld) [#/Vol] 0.4 10*3/uL 0.0 - 0.7 10*3/uL [facility] Monocytes/100 WBC (Bld) 10.1 % High 0.0 - 10.0 % [facility] Neutrophils (Bld) [#/Vol] 1.9 10*3/uL 1.4 - 6.5 10*3/uL [facility] Neutrophils/100 WBC (Bld) 46.6 % 37.0 - 75.0 % [facility] Platelet mean volume (Bld) [Entitic vol] 7.2 fL Low [facility] Platelets (Bld) [#/Vol] 201 10*3/uL 130. 0 - 400.0 10*3/uL [facility] RBC (Bld) [#/Vol] 4.76 10*6/uL 4.0 - 5.4 10*6/uL [facility] WBC (Bld) [#/Vol] 4.0 10*3/uL 3.6 - 11.0 10*3/uL [facility] CHEM 7 FASTINGon 05-30-2021 Chloride [Moles/Vol] 107 mmol/L Normal 98-107 [facility] Comment on above: Result Comment: Geeta clark note: Triglyceride levels of 600mg/dL or higher may positively bias chloride results by approximately 2.1 mmol CO2 [Moles/Vol] 23 mmol/L Normal 22-30 [facility] Creatinine [Mass/Vol] 0.65 mg/dL Low 0.7-1.2 [facility] EST. GFR, >60 Normal [facility] EST. GFR,Non >60 [facility] GFR Information Average GFR for 20-29 years old = 116. Normal [facility] Comment on above: Result Comment: Precise Winder zina Kidney disease, GFR = <60. Kidney failure, GFR = <15. The GFR estimate is not adjusted for extreme body surface area or acute process, nor has it been validated for women or ethnic groups other than and . Glucose [Mass/Vol] 103 mg/dL High 70-100 [facility] Comment on above: Result Comment: NORMAL <100 mg/dL PREDIABETES 101-126 mg/dL DIABETES 126 mg/dL or higher Potassium [Moles/Vol] 3.9 mmol/L Normal 3.5-5.1 [facility] Sodium [Moles/Vol] 141 mmol/L Normal 137-145 [facility] Urea nitrogen [Mass/Vol] 15 mg/dL Normal 7-20 [facility] CHEM 7 (LYTES,BUN,CREA,GLUC) on 05-30-2021 Chloride [Moles/Vol] 107 mmol/L [facility] Comment on above: Please note: Triglyc eride levels of 600mg/dL or higher may positively bias chloride results by approximately 2.1 mmol CO2 [Moles/Vol] 23 mmol/L [facility] Creatinine [Mass/Vol] 0.65 mg/dL Low [facility] GFR COMMENT Average GFR for 20-29 years old = 116. [facility] Comment on above: Chronic Kidney disea se, GFR = <60. Kidney failure, GFR = <15. The GFR estimate is not adjusted for extreme body surface area or acute process, nor has it been validated for women or ethnic groups other than and . GFR/1.73 sq M.predicted among blacks MDRD (S/P/Bld) [Vol rate/Area] mL/min/{1.73_m2} ml/min/1.73s q.m [facility] GFR/1.73 sq M.predicted among non-blacks MDRD (S/P/Bld) [Vol rate/Area] mL/min/{1.73_m2} ml/min/1.73s q.m [facility] Glucose post fast [Mass/Vol] 103 mg/dL High [facility] Comment on above: NORMAL <100 mg/dL PREDIABETES 101-126 mg/dL DIABETES 126 mg/dL or higher Interpretation and review of laboratory results Abnormal [facility] Potassium [Moles/Vol] 3.9 mmol/L [facility] Sodium [Moles/Vol] 141 mmol/L [facility] Urea nitrogen [Mass/Vol] 15 mg/dL [facility] HCG ( test) Ql (U)o n 05-30-2021 [facility] HCG QUALITATIVE, URINEon HCG ( test) Ql (U) Negative [facility] HEPATIC FUNCTION PANELon Albumin [Mass/Vol] 4.5 g/dL [facility] ALP [Catalytic activity/Vol] 43 U/L [facility] ALT [Catalytic activity/Vol] 15 U/L <35 IU/L [facility] AST [Catalytic activity/Vol] 20 U/L [facility] Bilirubin [Mass/Vol] 0.6 mg/dL [facility] Bilirubin.direct [Mass/Vol] 0.1 mg/dL [facility] Protein [Mass/Vol] 7.7 g/dL [facility] LIPASEon 05-30-2021 Lipase [Catalytic activity/Vol] 251 U/L 23 - 300 U/L [facility] LIPASE,SERUMon 05-30-2021 LIPASE,SERUM 251 U/L Normal 23-300 [facility] LIVER PANELon 05-30-2021 Albumin [Mass/Vol] 4.5 g/dL Normal 2.9-5.3 [facility] ALP [Catalytic activity/Vol] 43 U/L Normal 38-126 [facility] ALT [Catalytic activity/Vol] 15 U/L Normal <35 [facility] AST [Catalytic activity/Vol] 20 U/L Normal 14-36 [facility] Bilirubin [Mass/Vol] 0.6 mg/dL Normal 0.2-1.3 [facility] Bilirubin.indirect [Mass/Vol] 0.1 mg/dL Normal 0-0.4 [facility] Protein [Mass/Vol] 7.7 g/dL Normal 6.3-8.2 [facility] MONO SCREENon 05-30-2021 MONO SCREEN Negative Normal NEGATIVE [facility] MONONUCLEOSIS SCREENon 05-30 Heterophile Ab IA Ql Negative NEGATIVE [facility] No Panel Informationon 05-30 [facility] Interpretation and review of laboratory results Abnormal [facility] URINALYSIS, MACROon 05-30-19 22 Bilirubin Ql (U) Negative NEGATIVE [facility] Clarity (U) CLEAR CLEAR [facility] Color (U) YELLOW YELLOW [facility] Glucose Test strip (U) [Mass/Vol] Negative NEGATIVE mg/dl [facility] Hemoglobin Ql (U) TRACE-INTACT Abnormal NEGATIVE [facility] Ketones (U) [Mass/Vol] Negative NEGAT THEA mg/dl [facility] Leukocyte esterase Test strip Ql (U) Negative NEGATIVE [facility] Nitrite Ql (U) Negative NEGATIVE [facility] pH (U) 6.0 [pH] [facility] Protein Ql (U) Negative NEGATIVE mg/dl [facility] Specific gravity (U) [Rel density] 1.025 [facility] Urobilinogen (U) [Mass/Vol] 0.2 mg/dL [facility] URINE HCG QUALon 05-30-2021 Beta HCG ( test) Ql (U) Negative Normal [facility] URINE MACROSCOPICon 05-30-19 22 Bilirubin Ql (U) Negative Normal NEGATIVE [facility] Clarity (U) CLEAR Normal CLEAR [facility] Color (U) YELLOW Normal YELLOW [facility] Glucose Ql (U) Negative Normal NEGATIVE [facility] pH (U) 6.0 [pH] Normal 5.0-7.0 [facility] URINE HEMOGLOBIN TRACE-INTACT Abnormal NEGATIVE [facility] URINE KETONE Negative Normal NEGATIVE [facility] URINE LEUKOTEST Negative Normal NEGATIVE [facility] URINE NITRATES Negative Normal NEGATIVE [facility] URINE SPEC GRAVITY 1.025 Normal 1.010-1.025 [facility] URINE TOTAL PROTEIN Negative Normal NEGATIVE [facility] Urobilinogen Qn (U) 0.2 {Madhav'U}/dL Normal 0.2-1.0 [facility] URINE MICROSCOPICon 05-30-19 22 BACTERIA TRACE Abnormal NEGATIVE [facility] CASTS NONE Normal NONE [facility] CRYSTAL NONE Normal NONE [facility] Epithelial cells LM Ql (Urine sed) 5 TO 10 Normal [facility] Mucus Ql (Urine sed) Negative Normal NEGATIVE [facility] URINE COMMENT CULTURE CRITERIA NOT MET, NO CULTURE PERFORMED. Normal [facility] URINE RBC'S Negative Normal NEGATIVE [facility] URINE WBC'S Negative Normal NEGATIVE [facility] Bacteria LM.HPF (Urine sed) [#/Area] TRACE Abnormal NEGATIVE [facility] Casts LM.LPF (Urine sed) [#/Area] NONE NONE /LPF [facility] Crystals LM Nom (Urine sed) NONE NONE [facility] Epithelial cells LM Ql (Urine sed) 5 TO 10 /HPF [facility] Mucus Ql (Urine sed) Negative NEGATIVE [facility] RBC LM.HPF (Urine sed) [#/Area] Negative NEGATIVE /HPF [facility] Urine sediment comments LM Hung (Urine sed) CULTURE CRITERIA NOT MET, NO CULTURE PERFORMED. [facility] WBC LM.HPF (Urine sed) [#/Area] Negative NEGATIVE /HPF [facility] COVID-19, MOLECULARon 2020 SARS-CoV-2 (COVID-19) Ab IA Ql Not detected Normal Not Detected [facility] Comment on above: Result Comment: This test was performed under the [facility]'s Emergency Use Authorization (EUA). Testing was performed using the [employer] ID NOW COVID-19 assay on the [employer] platform. This test has not been approved for use in asymptomatic patients and its performance in this patient population has not been evaluated. Negative results do not rule out the presence of SARS-CoV-2/COVID-19. Fact sheets for the EUA can be found at the following links: For Healthcare Providers: https://www.fda.gov/media/331123/download For Patients: https://www.fda.gov/media/729244/download COVID-19, Molecularon 2020 SARS-CoV-2 (COVID-19) RdRp gene SHIRA+probe Ql (Resp) Not detected Not Detected [facility] Comment on above: This test was perfor med under the FDA's Emergency Use Authorization (EUA). Testing was performed using the [employer] ID NOW COVID-19 assay on the [employer] platform. This test has not been approved for use in asymptomatic patients and its performance in this patient population has not been evaluated. Negative results do not rule out the presence of SARS-CoV-2/COVID-19. Fact sheets for the EUA can be found at the following links: For Healthcare Providers: https://www.fda.gov/media/750640/download For Patients: https://www.fda.gov/media/008332/download SARS-CoV-2 (COVID-19) RdRp g cary SHIRA+probe Ql (Resp)on 02-21-2021 Interpretation and review of laboratory results Normal [facility] HCG ( test) Ql (U)o n 01-09-2021 [facility] HCG QUALITATIVE, URINEon HCG ( test) Ql (U) Negative [facility] URINALYSIS, MACROon 01-10-20 Bilirubin Ql (U) Negative NEGATIVE [facility] Clarity (U) CLEAR CLEAR [facility] Color (U) YELLOW YELLOW [facility] Glucose Test strip (U) [Mass/Vol] Negative NEGATIVE mg/dl [facility] Hemoglobin Ql (U) Negative NEGATIVE [facility] Ketones (U) [Mass/Vol] Negative NEGAT THEA mg/dl [facility] Leukocyte esterase Test strip Ql (U) Negative NEGATIVE [facility] Nitrite Ql (U) Negative NEGATIVE [facility] pH (U) 7.0 [pH] [facility] Protein Ql (U) Negative NEGATIVE mg/dl [facility] Specific gravity (U) [Rel density] 1.010 [facility] Urobilinogen (U) [Mass/Vol] 0.2 mg/dL [facility] XR SPINE LUMBOSACRAL 5 VIEWS on 01-09-2021 IMPRESSION: No significant bony abnormalities. RADIOLOGY EXAMINATION: XR SPINE LUMBOSACRAL 5 VIEWS, 01/09/2021 1:44 PM EDT HISTORY: Back pain ?2 weeks, no trauma COMPARISON: None. TECHNIQUE: Lumbar spine x-ray: 5 view(s). FINDINGS: The vertebral body heights are maintained. The disc heights are maintained. There are no acute fractures. [facility] Renata Ladd MD - 01/09/2021 EXAMINATION: XR SPINE LUMBOSACRAL 5 VIEWS, 01/09/2021 1:44 PM EDT HISTORY: Back pain ?2 weeks, no trauma COMPARISON: None. TECHNIQUE: Lumbar spine x-ray: 5 view(s). FINDINGS: The vertebral body heights are maintained. The disc heights are maintained. There are no acute fractures. IMPRESSION IMPRESSION: No significant bony abnormalities. [facility] Radiology Study observation (narrative) [facility] XR SPINE LUMBOSACRAL 5 VIEWS Ordered By: Renata Ladd on 01-09-2021 [facility] Work Phone: HCG ( test) Ql (U)o n 01-05-2021 Internal Control Pass [facility] No Panel Informationon 01-05 Interpretation and review of laboratory results Normal [facility] POC , Urineon 01-05 HCG ( test) Ql (U) Negative Negative [facility] POC URINALYSIS, AUTO OH URGE NT CAREon 01-05-2021 Bilirubin Ql (U) Negative Negative [facility] Clarity, UA Clear Clear [facility] Color (U) Yellow Yellow, Light Yellow, Dark Yellow [facility] Glucose Ql (U) Negative Normal, Negative mg/dL [facility] Hemoglobin Ql (U) Negative Negative [facility] Ketones Ql (U) Negative Negative mg/dL [facility] Leukocyte esterase Test strip Ql (U) Negative Negative [facility] Nitrite Ql (U) Negative Negative [facility] pH (U) 6.5 [pH] [facility] Protein Ql (U) Negative Negative mg/dL [facility] Specific gravity (U) [Rel density] 1.015 [facility] Urobilinogen Qn (U) 0.2 mg/dL <2.0, 0. 2, Normal, Negative, 1.0, 2.0, <1.0 [facility] MRI BRAIN WITHOUT CONTRASTon 07-18-2020 IMPRESSION: Normal MRI of the brain. [facility] MRI BRAIN WITHOUT CONTRAST, 07/18/2020. HISTORY: Migraine headaches. COMPARISON: CT head without contrast, 08/31/2018. TECHNIQUE: Sagittal and axial T1, axial T2, FLAIR, diffusion and T2 gradient images were obtained. FINDINGS: Paranasal sinuses are clear. Mastoid air cells are clear. Nasopharynx normal. [employer] spaces are normal. Orbital contents normal. No hydrocephalus. No extra-axial fluid collections. No mass effect. No shift of midline. No abnormal signal in the brain. No diffusion restriction. No acute infarction. Pituitary gland is normal in size. No cerebellar tonsil ectopia. No masses. [employer] User, Interfaces - 07/18/2020 1:13 PM EST MRI BRAIN WITHOUT CONTRAST, 07/18/2020. HISTORY: Migraine headaches. COMPARISON: CT head without contrast, 08/31/2018. TECHNIQUE: Sagittal and axial T1, axial T2, FLAIR, diffusion and T2 gradient images were obtained. FINDINGS: Paranasal sinuses are clear. Mastoid air cells are clear. Nasopharynx normal. [employer] spaces are normal. Orbital contents normal. No hydrocephalus. No extra-axial fluid collections. No mass effect. No shift of midline. No abnormal signal in the brain. No diffusion restriction. No acute infarction. Pituitary gland is normal in size. No cerebellar tonsil ectopia. No masses. IMPRESSION IMPRESSION: Normal MRI of the brain. [employer] XR FOOT RIGHT 3 VIEWSon 04-23 IMPRESSION: Suspected film artifact along the plantar aspect of the foot at the tarsometatarsal junction. No convincing radiopaque foreign body in the soft tissues of the heel. [employer] EXAM: XR FOOT RIGHT 3 VIEWS HISTORY: [...] seen in the region of the heel. [employer] User, [employer]faces - 05/12/2020 10:01 PM EST [...] in the soft tissues of the heel. [employer] HCG QUALITATIVE, URINEon HCG ( test) Ql (U) Negative [employer] BASIC METABOLIC PANELon 08-21 Anion gap [Moles/Vol] 8 mmol/L [facility] [employer] Calcium [Mass/Vol] 9.5 mg/dL [facility] [employer] Chloride [Moles/Vol] 105 mmol/L [facility] Comment on above: Please note: Triglyc eride levels of 600mg/dL or higher may positively bias chloride results by approximately 2.1 mmol CO2 [Moles/Vol] 24 mmol/L [facility] Creatinine [Mass/Vol] 0.5 mg/dL Low [facility] [employer] GFR/1.73 sq M predicted among blacks MDRD (S/P/Bld) [Vol rate/Area] mL/min/{1.73_m2} ml/min/1.73s q.m [facility] [employer] GFR/1.73 sq M predicted among non-blacks MDRD (S/P/Bld) [Vol rate/Area] Average GFR for 20-29 years old = 116. [employer] Comment on above: Chronic Kidney disea se, GFR = <60. Kidney failure, GFR = <15. The GFR estimate is not adjusted for extreme body surface area or acute process, nor has it been validated for women or ethnic groups other than and . GFR/1.73 sq M predicted among non-blacks MDRD (S/P/Bld) [Vol rate/Area] mL/min/{1.73_m2} ml/min/1.73s q.m [facility] Glucose post fast [Mass/Vol] 84 mg/dL [facility] [employer] Comment on above: NORMAL <100 mg/dL PREDIABETES 101-126 mg/dL DIABETES 126 mg/dL or higher Potassium [Moles/Vol] 3.6 mmol/L [employer] [facility] Sodium [Moles/Vol] 137 mmol/L [facility] [employer] Urea nitrogen [Mass/Vol] 10 mg/dL [employer] CBC, EDIF, [employer] 2018 ABSOLUTE BASOPHIL COUNT 0.0 X10 [facility] Basophils/100 WBC (Bld) 0.4 % 0 - 2 % [facility] [employer] Differential cell count method Nom (Bld) AUTO DIFF % [facility] [employer] Eosinophils (Bld) [#/Vol] 0.00 10*3/uL X10 [facility] [employer] Eosinophils/100 WBC (Bld) 0.7 % 0 - 11 % [facility] [employer] Erythrocyte distribution width (RBC) [Ratio] 13.8 % 11.5 - 14.5 % [facility] [employer] Hematocrit (Bld) [Volume fraction] 37.3 % 36 - 48 % [facility] [employer] Hemoglobin (Bld) [Mass/Vol] 12.9 g/dL [facility] Lymphocytes (Bld) [#/Vol] 1.60 10*3/uL X10 [facility] Lymphocytes/100 WBC (Bld) 33.9 % 20 - 55 % [facility] [employer] MCH (RBC) [Entitic mass] 29.1 pg 26 - 35 PG [facility] MCHC (RBC) [Mass/Vol] 34.5 g/dL [facility] [employer] MCV (RBC) [Entitic vol] 84.2 fL [facility] [employer] Monocytes (Bld) [#/Vol] 0.4 10*3/uL X10 [facility] [employer] Monocytes/100 WBC (Bld) 9.2 % 0 - 10 % [facility] [employer] Neutrophils (Bld) [#/Vol] 2.6 10*3/uL [facility] [employer] Neutrophils/100 WBC (Bld) 55.8 % 37 - 75 % [facility] [employer] Platelet mean volume (Bld) [Entitic vol] 6.7 fL Low [facility] [employer] Platelets (Bld) [#/Vol] 210 10*3/uL [facility] [employer] RBC (Bld) [#/Vol] 4.43 10*6/uL [facility] [employer] WBC (Bld) [#/Vol] 4.7 10*3/uL [facility] CT HEAD WITHOUT CONTRASTon 0 08-31-2018 CT [...] of the orbits and sinuses are intact. [employer] User, Interfaces - 08/31/2018 11:50 PM EDT [...] IMPRESSION IMPRESSION: Normal CT of the brain. [employer] IMPRESSION: Normal CT of the brain. [employer] MAGNESIUMon 08-31-2018 Magnesium [Mass/Vol] 1.9 mg/dL [employer] Otheron 08-31-2018 Interpretation and review of laboratory results Abnormal [employer] TOXICOLOGY DRUG SCREEN, URIN Irvin 08-31-2018 Amphetamine (U) [Mass/Vol] Negative NEGATIVE NG/ML [employer] Comment on above: <500 ng/ml [facility] Barbiturates Screen Ql (U) Negative NEGATIVE NG/ML [facility] Comment on above: <200 ng/ml [facility] Benzodiazepines Ql (U) Negative NEGAT THEA NG/ML [facility] Comment on above: <150 ng/ml [facility] Benzoylecgonine Ql (U) Negative NEGAT THEA NG/ML [facility] Comment on above: <150 ng/ml [facility] Buprenorphine Ql (U) Negative NEGATIV E NG/ML [facility] Comment on above: <10 ng/ml [facility] Cannabinoids Screen Ql (U) Negative NEGATIVE NG/ML [facility] Comment on above: <50 ng/ml [facility] Methadone Screen Ql (U) Negative NEGA TIVE NG/ML [facility] Comment on above: <200 ng/ml [facility] Methamphetamine (U) [Mass/Vol] Negative NEGATIVE NG/ML [facility] Comment on above: <500 ng/ml [facility] Opiates Screen Ql (U) Negative NEGATI VE NG/ML [facility] Comment on above: <100 ng/ml [facility] Oxycodone Ql (U) Negative NEGATIVE NG/ML [facility] Comment on above: <100 ng/ml [facility] Phencyclidine Screen method >25 ng/mL Ql (U) Negative NEGATIVE NG/ML [facility] Comment on above: <25 ng/ml [facility] Propoxyphene + Norpropoxyphene Screen Ql (U) Negative NEGATIVE NG/ML [employer] Comment on above: <300 ng/ml [facility] Tricyclic antidepressants Screen Ql (U) Negative NEGATIVE NG/ML [employer] Comment on above: <300 ng/ml [facility] Otheron 08-22-2018 Interpretation and review of laboratory results Abnormal [employer] T4 FREEon 08-22-2018 T4 free mass conc 1.01 ng/dL [facility] THYROID PROFILEon 08-22-2018 T3RU 20 % Low 24 - 39 % [employer] T4 free index Calculated mass conc 1.7 [facility] Comment on above: [facility] T4 mass conc 8.5 ug/dL 4.5 - 12 ug/dL [facility] TSHon 08-22-2018 Thyrotropin Qn 27.800 m[IU]/L High [facility] ABO/RH(D) TYPINGon 9 ABO and Rh group Nom (Bld ) Positive [facility] BETA HCG, QUANT, BLOODon HCG.beta subunit Qn 828422.00 m[IU]/mL MIU/ML [facility] Comment on above: [facility] INTERPRETIVE RANGES: NON FEMALE 0-6 MIU/ML MALE [...] 2018 ABSOLUTE BASOPHIL COUNT 0.0 X10 [facility] Basophils/100 WBC (Bld) 0.2 % 0 - 2 % [facility] Differential cell count method Nom (Bld) AUTO DIFF % [facility] Eosinophils #/vol (Bld) 0.00 10*3/uL X10 [facility] Eosinophils/100 WBC (Bld) 0.5 % 0 - 11 % [facility] Erythrocyte distribution width Ratio (RBC) 12.9 % 11.5 - 14.5 % [facility] Hematocrit Volume Fraction (Bld) 38.8 % 36 - 48 % [facility] Hemoglobin mass conc (Bld) 13.5 g/dL [facility] Lymphocytes #/vol (Bld) 1.50 10*3/uL X10 [facility] [...] [facility] WBC #/vol (Bld) 5.2 10*3/uL [facility] CHEM 7 (LYTES,BUN,CREA,GLUC) on 08-12-2018 Chloride molar conc 106 mmol/L [facility] Comment on above: Please note: Triglyc eride levels of 600mg/dL or higher may positively bias chloride results by approximately 2.1 mmol CO2 molar conc 22 mmol/L [facility] Creatinine mass conc 0.5 mg/dL Low [facility] GFR/1.73 sq M predicted among blacks MDRD vol rate/area (S/P/Bld) mL/min/{1.73_m2} ml/min/1.73s q.m [facility] GFR/1.73 sq M predicted among non-blacks MDRD vol rate/area (S/P/Bld) mL/min/{1.73_m2} ml/min/1.73s q.m [facility] GFR/1.73 sq M predicted among non-blacks MDRD vol rate/area (S/P/Bld) Average GFR for 20-29 years old = 116. [facility] Comment on above: Chronic Kidney disea se, GFR = <60. Kidney failure, GFR = <15. The GFR estimate is not adjusted for extreme body surface area or acute process, nor has it been validated for women or ethnic groups other than and . Glucose fasting mass conc 108 mg/dL High [facility] Comment on above: NORMAL <100 mg/dL PREDIABETES 101-126 mg/dL DIABETES 126 mg/dL or higher Potassium molar conc 3.6 mmol/L [facility] Sodium molar conc 139 mmol/L [facility] Urea nitrogen mass conc 9 mg/dL [facility] [employer] [facility] Otheron 08-12-2018 Interpretation and review of laboratory results Abnormal [facility] Interpretation and review of laboratory results Abnormal [facility] URINALYSIS, MACROon 08-13-19 19 Bilirubin Ql (U) Negative NEGATIVE [facility] Clarity Nom (U) CLEAR CLEAR [facility] Color Nom (U) YELLOW YELLOW [facility] Glucose Test strip mass conc (U) Negative NEGATIVE mg/dl [facility] Hemoglobin Ql (U) Negative NEGATIVE [facility] Ketones mass conc (U) 15 mg/dl Abnormal NEGATIVE [facility] Leukocyte esterase Test strip Ql (U) TRACE Abnormal NEGATIVE [facility] Nitrite Ql (U) Negative NEGATIVE [facility] pH (U) 7.0 [pH] [facility] Protein Ql (U) Negative NEGATIVE mg/dl [facility] Specific gravity Relative Density (U) 1.010 [facility] Urobilinogen mass conc (U) 0.2 mg/dl 0.2 - 1 mg/dl [facility] URINE MICROSCOPICon 08-13-19 19 Bacteria LM.HPF #/area (Urine sed) TRACE Abnormal NEGATIVE [facility] Casts LM.LPF #/area (Urine sed) NONE NONE /LPF [facility] Crystals LM Nom (Urine sed) NONE NONE [facility] Epithelial cells LM Ql (Urine sed) 10 TO 20 /HPF [facility] Mucus Ql (Urine sed) Negative NEGATIVE [facility] RBC LM.HPF #/area (Urine sed) Negative NEGATIVE /HPF [facility] Urine sediment comments LM Hung (Urine sed) POSSIBLY CONTAMINATED SPECIMEN, CULTURE MUST BE ORDERED SEPARATELY IF DEEMED NECESSARY. [facility] WBC LM.HPF #/area (Urine sed) 1 TO 5 NEGATIVE /HPF [facility] Vital Signs Date Time Vital Sign Value Performing Clinician Faci lity 02-03-2022 14:15-0400 Body height 160 cm Diamond Garay MD Work Phone: [facility] 02-03-2022 14:15-0400 Body mass index (BMI) [Ratio] 26.85 kg/m2 Diamond Garay MD Work Phone: [facility] 02-03-2022 14:15-0400 Body weight 68.77 kg Diamond Garay MD Work Phone: [facility] 02-03-2022 14:15-0400 Diastolic blood pressure 70 mm[Hg] Diamond Garay MD Work Phone: [facility] 02-03-2022 14:15-0400 Heart rate 94 /min Diamond Garay MD Work Phone: [facility] 02-03-2022 14:15-0400 Respiratory rate 16 /min Diamond Garay MD Work Phone: [facility] 02-03-2022 14:15-0400 SaO2% (BldA) [Mass fraction] 99 % Diamond Garay MD Work Phone: [facility] 02-03-2022 14:15-0400 Systolic blood pressure 107 mm[Hg] Diamond Garay MD Work Phone: [facility] 01-29-2022 14:41-0400 Diastolic blood pressure 88 mm[Hg] Arlene Titus MD Work Phone: [facility] 01-29-2022 14:41-0400 Heart rate 86 /min Arlene Titus MD Work Phone: [facility] 01-29-2022 14:41-0400 Respiratory rate 18 /min Arlene Titus MD Work Phone: [facility] 01-29-2022 14:41-0400 SaO2% (BldA) [Mass fraction] 100 % Arlene Titus MD Work Phone: [facility] 01-29-2022 14:41-0400 Systolic blood pressure 140 mm[Hg] Arlene Titus MD Work Phone: [facility] 01-29-2022 13:01-0400 Body temperature 97.2 [degF] Arlene Titus MD Work Phone: [facility] 12-09-2021 14:23-0400 Body height 160 cm Marylin Brink MD Work Phone: [facility] 12-09-2021 14:23-0400 Body mass index (BMI) [Ratio] 24.8 kg/m2 Marylin Brink MD Work Phone: [facility] 12-09-2021 14:23-0400 Body weight 63.5 kg Marylin Brink MD Work Phone: [facility] 12-09-2021 14:23-0400 Respiratory rate 16 /min Marylin Brink MD Work Phone: [facility] 12-03-2021 09:57-0400 Body height 160 cm Marylin Brink MD Work Phone: [facility] 12-03-2021 09:57-0400 Body mass index (BMI) [Ratio] 24.8 kg/m2 Marylin Brink MD Work Phone: [facility] 12-03-2021 09:57-0400 Body weight 63.5 kg Marylin Brink MD Work Phone: [facility] 12-03-2021 09:57-0400 Respiratory rate 16 /min Marylin Brink MD Work Phone: [facility] 12-01-2021 12:27-0400 Body height 160 cm Marylin Brink MD Work Phone: [facility] 12-01-2021 12:27-0400 Body mass index (BMI) [Ratio] 24.8 kg/m2 Marylin Brink MD Work Phone: [facility] 12-01-2021 12:27-0400 Body weight 63.5 kg Marylin Brink MD Work Phone: [facility] 12-01-2021 12:27-0400 Respiratory rate 16 /min Marylin Brink MD Work Phone: [facility] 11-12-2021 10:13-0400 Body height 160 cm Marylin Brink MD Work Phone: [facility] 11-12-2021 10:13-0400 Body mass index (BMI) [Ratio] 24.8 kg/m2 Marylin Brink MD Work Phone: [facility] 11-12-2021 10:13-0400 Body weight 63.5 kg Marylin Brink MD Work Phone: [facility] 11-12-2021 10:13-0400 Respiratory rate 16 /min Marylin Brink MD Work Phone: [facility] 10-11-2021 13:40-0400 Body height 160 cm Antoine Sow MD Work Phone: [facility] 10-11-2021 13:39-0400 Body temperature 97.9 [degF] Antoine Sow MD Work Phone: [facility] 10-11-2021 13:39-0400 Diastolic blood pressure 84 mm[Hg] Antoine Sow MD Work Phone: [facility] 10-11-2021 13:39-0400 Heart rate 96 /min Antoine Sow MD Work Phone: [facility] 10-11-2021 13:39-0400 Respiratory rate 17 /min Antoine Sow MD Work Phone: [facility] 10-11-2021 13:39-0400 SaO2% (BldA) [Mass fraction] 97 % Antoine Sow MD Work Phone: [facility] 10-11-2021 13:39-0400 Systolic blood pressure 134 mm[Hg] Antoine Sow MD Work Phone: [facility] 10-11-2021 12:59-0400 Body mass index (BMI) [Ratio] 23.56 kg/m2 Elias Dubon PA-C Work Phone: [facility] 10-11-2021 12:59-0400 Body temperature 97.2 [degF] Elias Dubon PA-C Work Phone: [facility] 10-11-2021 12:59-0400 Body weight 60.33 kg Elias Dubon PA-C Work Phone: [facility] 10-11-2021 12:59-0400 Diastolic blood pressure 81 mm[Hg] Elias Dubon PA-C Work Phone: [facility] 10-11-2021 12:59-0400 Heart rate 87 /min Elias Dubon PA-C Work Phone: [facility] 10-11-2021 12:59-0400 Respiratory rate 18 /min Elias Dubon PA-C Work Phone: [facility] 10-11-2021 12:59-0400 SaO2% (BldA) [Mass fraction] 98 % Elias Dubon PA-C Work Phone: [facility] 10-11-2021 12:59-0400 Systolic blood pressure 115 mm[Hg] Elias Dubon PA-C Work Phone: [facility] 08-20-2021 14:02-0400 Body height 160 cm Lisbeth Louis PA-C Work Phone: [facility] 08-20-2021 14:02-0400 Body mass index (BMI) [Ratio] 23.61 kg/m2 Lisbeth Louis PA-C Work Phone: [facility] 08-20-2021 14:02-0400 Body temperature 98.49 [degF] Lisbeth Louis PA-C Work Phone: [facility] 08-20-2021 14:02-0400 Body weight 60.46 kg Lisbeth Louis PA-C Work Phone: [facility] 08-20-2021 14:02-0400 Diastolic blood pressure 77 mm[Hg] Sharonarlette Louis PA-C Work Phone: [facility] 08-20-2021 14:02-0400 Heart rate 82 /min Lisbeth Louis PA-C Work Phone: [facility] 08-20-2021 14:02-0400 Respiratory rate 17 /min Sharonarlette Louis PA-C Work Phone: [facility] 08-20-2021 14:02-0400 SaO2% (BldA) [Mass fraction] 96 % Sharonarlette Louis PA-C Work Phone: [facility] 08-20-2021 14:02-0400 Systolic blood pressure 113 mm[Hg] Lisbeth Louis PA-C Work Phone: [facility] 05-30-2021 17:00-0500 Diastolic blood pressure 72 mm[Hg] Zelalem Pay DO Work Phone: [facility] 05-30-2021 17:00-0500 Heart rate 84 /min Zelalem Pay DO Work Phone: [facility] 05-30-2021 17:00-0500 SaO2% (BldA) [Mass fraction] 100 % Zelalem Pay DO Work Phone: [facility] 05-30-2021 17:00-0500 Systolic blood pressure 113 mm[Hg] Zelalem Pay DO Work Phone: [facility] 05-30-2021 16:08-0500 Body height 160 cm Zelalem Pay DO Work Phone: [facility] 05-30-2021 16:07-0500 Body temperature 98.4 [degF] Zelalem Pay DO Work Phone: [facility] 05-30-2021 16:07-0500 Respiratory rate 17 /min Zelalem Pay DO Work Phone: [facility] [employer] [facility] 04-01-2021 08:39-0500 Body height 160 cm Mary Ellen Clinker SENIOR SALES EXECUTIVE-BEAM WORKER Work Phone: [employer] [facility] 04-01-2021 08:39-0500 Body mass index (BMI) [Ratio] 23.7 kg/m2 Mary Ellen Clinker SENIOR SALES EXECUTIVE-BEAM WORKER Work Phone: [facility] [employer] [facility] 04-01-2021 08:39-0500 Body weight 60.69 kg Mary Ellen Clinker SENIOR SALES EXECUTIVE-BEAM WORKER Work Phone: [facility] [employer] [facility] 04-01-2021 08:39-0500 Diastolic blood pressure 93 mm[Hg] Mary Ellen Clinker SENIOR SALES EXECUTIVE-BEAM WORKER Work Phone: [facility] 04-01-2021 08:39-0500 Heart rate 84 /min Mary Ellen Clinker SENIOR SALES EXECUTIVE-BEAM WORKER Work Phone: [employer] [facility] 04-01-2021 08:39-0500 Respiratory rate 18 /min Mary Ellen Clinker SENIOR SALES EXECUTIVE-BEAM WORKER Work Phone: [facility] [employer] [facility] 04-01-2021 08:39-0500 Systolic blood pressure 132 mm[Hg] Mary Ellen Clinker SENIOR SALES EXECUTIVE-BEAM WORKER Work Phone: [facility] 02-21-2021 13:13-0400 Body temperature 98.6 [degF] Tabbitha Adela BEAM WORKER Work Phone: [facility] 02-21-2021 13:13-0400 Heart rate 97 /min Tabbitha Adela BEAM WORKER Work Phone: [facility] 02-21-2021 13:13-0400 SaO2% (BldA) [Mass fraction] 96 % Tabbitha Adela BEAM WORKER Work Phone: [facility] 01-09-2021 14:45-0400 Diastolic blood pressure 76 mm[Hg] Jaxon Weston MD Work Phone: [phone](536)[phone] [place] [address] 01-09-2021 14:45-0400 Heart rate 68 /min Jaxon Weston MD Work Phone: 8(034)[phone] [place] [address] 01-09-2021 14:45-0400 Respiratory rate 17 /min Jaxon Weston MD Work Phone: 7(117)[phone] [place] [address] 01-09-2021 14:45-0400 SaO2% (BldA) [Mass fraction] 99 % Jaxon Weston MD Work Phone: 1(857)[phone] [place] [address] 01-09-2021 14:45-0400 Systolic blood pressure 115 mm[Hg] Jaxon Weston MD Work Phone: 3(658)[phone] [place] [address] 01-09-2021 12:48-0400 Body temperature 98.1 [degF] Jaxon Weston MD Work Phone: 0(158)[phone] [place] [address] 01-05-2021 10:43-0400 Body temperature 98.49 [degF] Tabbitha Adela BEAM WORKER Work Phone: [facility] 01-05-2021 10:43-0400 Body weight 53.07 kg Tabbitha Adela BEAM WORKER Work Phone: [facility] 01-05-2021 10:43-0400 Diastolic blood pressure 75 mm[Hg] Tabbitha Adela BEAM WORKER Work Phone: [facility] 01-05-2021 10:43-0400 Heart rate 77 /min Tabbitha Adela BEAM WORKER Work Phone: [facility] 01-05-2021 10:43-0400 Respiratory rate 16 /min Tabbitha Adela BEAM WORKER Work Phone: [facility] 01-05-2021 10:43-0400 SaO2% (BldA) [Mass fraction] 99 % Tabbitha Adela BEAM WORKER Work Phone: [facility] 01-05-2021 10:43-0400 Systolic blood pressure 108 mm[Hg] Chio Chapman BEAM WORKER Work Phone: [facility] 05-12-2020 21:32-0500 Body Temperature 97.5 [degF] [facility] 05-12-2020 21:32-0500 BP Diastolic 85 mm[Hg] [facility] 05-12-2020 21:32-0500 BP Systolic 120 mm[Hg] [facility] 05-12-2020 21:32-0500 Pulse (Heart Rate) 82 /min [facility] 05-12-2020 21:32-0500 Pulse Oximetry 97 % [facility] 05-12-2020 21:32-0500 Respiratory Rate 16 /min [facility] 01-12-2020 22:16-0400 BMI (Body Mass Index) 21.26 kg/m2 [facility] 01-12-2020 22:16-0400 Body weight 54.43 kg [facility] 01-12-2020 22:15-0400 Body Temperature 97.2 [degF] [facility] 01-12-2020 22:15-0400 BP Diastolic 97 mm[Hg] [facility] 01-12-2020 22:15-0400 BP Systolic 138 mm[Hg] [facility] 01-12-2020 22:15-0400 Pulse (Heart Rate) 97 /min [facility] 01-12-2020 22:15-0400 Pulse Oximetry 94 % [facility] 01-12-2020 22:15-0400 Respiratory Rate 18 /min [facility] 01-10-2020 14:21-0400 Body Temperature 98.6 [degF] [facility] 12-26-2019 11:40-0400 BP Diastolic 62 mm[Hg] [facility] 12-26-2019 11:40-0400 BP Systolic 111 mm[Hg] [facility] 12-26-2019 11:40-0400 Pulse (Heart Rate) 71 /min [facility] 12-26-2019 11:40-0400 Pulse Oximetry 100 % [facility] 12-26-2019 11:40-0400 Respiratory Rate 16 /min [facility] 12-26-2019 10:46-0400 Body Temperature 98.1 [degF] [facility] 12-26-2019 08:21-0400 Height 160 cm [facility] 12-15-2019 15:29-0400 Body Temperature 98.2 [degF] [facility] 12-15-2019 15:29-0400 BP Diastolic 86 mm[Hg] [facility] 12-15-2019 15:29-0400 BP Systolic 131 mm[Hg] [facility] 12-15-2019 15:29-0400 Height 160 cm [facility] 12-15-2019 15:29-0400 Pulse (Heart Rate) 90 /min [facility] 12-15-2019 15:29-0400 Pulse Oximetry 98 % [facility] 12-15-2019 15:29-0400 Respiratory Rate 16 /min [facility] 10-16-2019 17:39-0400 Body Temperature 99.1 [degF] [facility] 10-16-2019 17:39-0400 BP Diastolic 73 mm[Hg] [facility] 10-16-2019 17:39-0400 BP Systolic 116 mm[Hg] [facility] 10-16-2019 17:39-0400 Pulse (Heart Rate) 87 /min [facility] 10-16-2019 17:39-0400 Pulse Oximetry 96 % [facility] 10-16-2019 17:39-0400 Respiratory Rate 16 /min [facility] 10-04-2019 22:23-0400 BMI (Body Mass Index) 21.26 kg/m2 [facility] 10-04-2019 22:23-0400 Body weight 54.43 kg [facility] 10-04-2019 22:21-0400 Body Temperature 98.71 [degF] [facility] 10-04-2019 22:21-0400 BP Diastolic 76 mm[Hg] [facility] 10-04-2019 22:21-0400 BP Systolic 114 mm[Hg] [facility] 10-04-2019 22:21-0400 Pulse (Heart Rate) 88 /min [facility] 10-04-2019 22:21-0400 Pulse Oximetry 97 % [facility] 10-04-2019 22:21-0400 Respiratory Rate 15 /min [facility] 08-14-2019 10:15-0400 Height 160 [facility] 08-14-2019 10:14-0400 Body Temperature 98.1 [degF] [facility] 08-14-2019 10:14-0400 BP Diastolic 70 mm[Hg] [facility] 08-14-2019 10:14-0400 BP Systolic 129 mm[Hg] [facility] 08-14-2019 10:14-0400 Pulse (Heart Rate) 82 /min [facility] 08-14-2019 10:14-0400 Pulse Oximetry 98 % [facility] 08-14-2019 10:14-0400 Respiratory Rate 16 /min [facility] 05-31-2019 17:22-0500 Height 160 cm [facility] 05-31-2019 17:21-0500 Body Temperature 98.29 [degF] [facility] 05-31-2019 17:21-0500 BP Diastolic 74 mm[Hg] [facility] 05-31-2019 17:21-0500 BP Systolic 119 mm[Hg] [facility] 05-31-2019 17:21-0500 Pulse (Heart Rate) 92 /min [facility] 05-31-2019 17:21-0500 Pulse Oximetry 98 % [facility] 05-31-2019 17:21-0500 Respiratory Rate 16 /min [facility] 05-13-2019 13:26-0500 Height 160 cm [facility] 05-13-2019 13:23-0500 Body Temperature 98.49 [degF] [facility] 05-13-2019 13:23-0500 BP Diastolic 70 mm[Hg] [facility] 05-13-2019 13:23-0500 BP Systolic 120 mm[Hg] [facility] 05-13-2019 13:23-0500 Pulse (Heart Rate) 96 /min [facility] 05-13-2019 13:23-0500 Pulse Oximetry 98 % [facility] 05-13-2019 13:23-0500 Respiratory Rate 14 /min [facility] 09-16-2018 14:06-0400 BP Diastolic 80 mm[Hg] [facility] 09-16-2018 14:06-0400 BP Systolic 120 mm[Hg] [facility] 09-16-2018 14:06-0400 Pulse (Heart Rate) 90 /min [facility] 09-16-2018 14:06-0400 Respiratory Rate 16 /min [facility] 09-16-2018 13:30-0400 Height 160 cm [facility] 09-16-2018 13:28-0400 Body Temperature 98.01 [degF] [facility] 09-16-2018 13:28-0400 Pulse Oximetry 98 % [facility] 08-31-2018 23:41-0400 BP Diastolic 67 mm[Hg] [facility] 08-31-2018 23:41-0400 BP Systolic 108 mm[Hg] [facility] 08-31-2018 23:41-0400 Pulse (Heart Rate) 88 /min [facility] 08-31-2018 23:41-0400 Pulse Oximetry 97 % [facility] 08-31-2018 23:41-0400 Respiratory Rate 16 /min [facility] 08-31-2018 22:35-0400 Body weight 56.7 kg [facility] 08-31-2018 22:34-0400 Body Temperature 98.2 [degF] [facility] [employer] 08-12-2018 16:00-0400 BP Diastolic 69 mm[Hg] [facility] 08-12-2018 16:00-0400 BP Systolic 109 mm[Hg] [facility] 08-12-2018 16:00-0400 Pulse (Heart Rate) 90 /min [facility] 08-12-2018 16:00-0400 Pulse Oximetry 96 % [facility] 08-12-2018 16:00-0400 Respiratory Rate 18 /min [facility] 08-12-2018 14:27-0400 Body Temperature 98.29 [degF] [facility] Encounters Encounter Date Encounter Type Care Provider Facility Start: 11-14-2023 End: 11-14-2023 Patient encounter procedure Chelly [place] [facility] Start: 11-14-2023 End: 11-14-2023 ambulatory WHHARPREET [place] Not Available Start: 11-01-2023 End: 11-01-2023 ambulatory CHELLY [place] Not Available Start: 10-27-2023 End: 10-27-2023 ambulatory Tasha E Spasic [facility] Work Phone: Start: 10-27-2023 End: 10-27-2023 Departed Referred DECAL DECORATOR-C Tasha Spasic Work Phone: [facility] Start: 09-01-2023 End: 09-01-2023 ambulatory Tasha E Spasic [facility] Work Phone: Start: 09-01-2023 End: 09-01-2023 Departed Referred DECAL DECORATOR-C Tasha Spasic Work Phone: [facility] Start: 06-09-2023 End: 06-09-2023 ambulatory Tasha E Spasic Facility:[facility] Start: 06-09-2023 End: 06-09-2023 ambulatory Tasha Mehta [facility] Work Phone: Start: 06-09-2023 End: 06-09-2023 Departed Referred DECAL DECORATOR-Nasir Mehta Work Phone: [facility] [facility] Start: 03-06-2023 ambulatory Services [facility] Facility:[facility] Start: 01-06-2023 End: 01-06-2023 Patient encounter procedure Services [facility] Work Phone: [facility] [place] Work Phone: Start: 01-06-2023 End: 01-06-2023 ambulatory Services [facility] Work Phone: [facility] Work Phone: Start: 02-15-2022 ambulatory [facility] Start: 02-12-2022 ambulatory [facility] Start: 02-03-2022 ambulatory [facility] Start: 02-03-2022 End: 02-03-2022 Office outpatient visit 15 minutes Diamond Garay MD Work Phone: [facility] Comment on above: Facet arthropathy (P rimary Dx); Myofascial pain; Chronic pain syndrome; Sacroiliitis; Right hip pain Start: 01-29-2022 [facility] Start: 01-29-2022 End: 01-29-2022 Patient encounter procedure Arlene Titus MD Work Phone: [facility] Comment on above: Lumbar spondylosis ( Primary Dx) Start: 01-29-2022 End: 01-29-2022 Subsequent hospital visit by physician Arlene Titus MD Work Phone: [facility] Comment on above: Arrived Start: 01-24-2022 End: 01-24-2022 Emergency department patient visit [facility] Start: 01-23-2022 ambulatory [facility] Start: 01-23-2022 End: 01-23-2022 Subsequent hospital visit by physician Tasha Mehta MD Work Phone: [facility] Start: 01-05-2022 ambulatory ARLENE TITUS [facility] Start: 12-28-2021 ambulatory [facility] Start: 12-28-2021 End: 12-28-2021 Subsequent hospital visit by physician Marylin Brink MD Work Phone: [facility] Comment on above: Arrived Start: 12-09-2021 [facility] Start: 12-09-2021 End: 12-09-2021 Office outpatient visit 25 minutes Marylin Brink MD Work Phone: [facility] Comment on above: Closed fracture of s acrum and coccyx, initial encounter (Primary Dx); 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, subsequent encounter Start: 12-08-2021 [facility] Start: 12-04-2021 [facility] Start: 12-04-2021 End: 12-04-2021 Subsequent hospital visit by physician Marylin Brink MD Work Phone: [facility] Comment on above: Arrived Start: 12-03-2021 [facility] Start: 12-03-2021 [facility] Start: 12-03-2021 End: 12-03-2021 Office outpatient visit 25 minutes Marylin Brink MD Work Phone: [facility] Comment on above: Closed fracture of s acrum and coccyx, initial encounter (Primary Dx) Start: 12-01-2021 ambulatory [facility] Start: 12-01-2021 ambulatory [facility] Start: 12-01-2021 End: 12-01-2021 Office outpatient visit 25 minutes Marylin Brink MD Work Phone: [facility] Comment on above: Closed fracture of s acrum and coccyx, initial encounter Start: 11-27-2021 [facility] Start: 11-25-2021 [facility] Start: 11-25-2021 End: 11-25-2021 Subsequent hospital visit by physician Marylin Brink MD Work Phone: [facility] Diagnostic Radiology [facility] Comment on above: Arrived Start: 11-25-2021 End: 11-25-2021 Office outpatient visit 25 minutes Marylin Brink MD Work Phone: [facility] Comment on above: Closed fracture of s acrum and coccyx, initial encounter (Primary Dx) Start: 11-16-2021 [facility] Start: 11-12-2021 [facility] Start: 11-12-2021 End: 11-12-2021 Office outpatient new 45 minutes Marylin Brink MD Work Phone: [facility] Comment on above: Acute pain of right shoulder (Primary Dx); Closed fracture of sacrum and coccyx, initial encounter; Smoker Start: 10-28-2021 End: 10-28-2021 Emergency department patient visit [facility] Start: 10-20-2021 ambulatory [facility] Start: 10-14-2021 ambulatory [facility] Start: 10-14-2021 End: 10-14-2021 Subsequent hospital visit by physician Tasha Mehta MD Work Phone: [facility] Comment on above: Arrived Start: 10-11-2021 End: 10-11-2021 Emergency department patient visit [facility] Start: 10-11-2021 End: 10-11-20[facility] Start: 10-11-2021 End: 10-11-2021 Emergency department patient visit Antoine Sow MD Work Phone: [facility] Start: 10-11-2021 End: 10-11-2021 Patient encounter procedure Elias Dubon PA-C Work Phone: [facility] Comment on above: Acute midline low ba ck pain without sciatica (Primary Dx); Left lower quadrant abdominal pain; Right hip pain Start: 08-24-2021 End: 08-24-2021 ambulatory [facility] Start: 08-22-2021 Orders Only Lisbeth lynne PA-C Work Phone: [facility] Comment on above: Acute cystitis witho ut hematuria (Primary Dx) Start: 08-20-2021 End: 08-20-2021 ambulatory [facility] Start: 08-20-2021 End: 08-20-2021 Office outpatient new 45 minutes Lisbeth Louis PA-C Work Phone: [facility] Comment on above: Dysuria (Primary Dx) Start: 07-23-2021 ambulatory [facility] Start: 05-30-2021 End: 05-30-2021 Emergency department patient visit [facility] Start: 05-30-2021 End: 05-30-2021 Emergency department patient visit Zelalem Hampton DO Work Phone: [facility] Start: 04-22-2021 End: 04-22-2021 [facility] Start: 04-01-2021 End: 04-01-2021 Office outpatient visit 15 minutes Mary Ellen Valles SENIOR SALES EXECUTIVE-BEAM WORKER Work Phone: [facility] Comment on above: Medication monitorin g encounter (Primary Dx); Lumbar radiculopathy; Chronic pain syndrome Start: 02-21-2021 End: 02-21-[address] Start: 02-21-2021 End: 02-21-2021 Office outpatient visit 15 minutes Chio Chapman BEAM WORKER Work Phone: [facility] [place] Comment on above: Viral illness (Prima ry Dx); Exposure to 2019 novel coronavirus Start: 01-09-2021 End: 01-09-2021 Emergency department patient visit Jaxon Weston MD Work Phone: [facility] Start: 01-05-2021 End: 01-05-2021 [facility] Start: 01-05-2021 End: 01-05-2021 Office outpatient new 30 minutes Emirfranca Chapman BEAM WORKER Work Phone: [facility] Comment on above: Ingrown toenail of l eft foot with infection (Primary Dx); Flank pain Start: 07-18-2020 End: 07-18-2020 Subsequent hospital visit by physician Tasha Mehta Work Phone: [facility] [place] [facility] Comment on above: Arrived Start: 05-12-2020 End: 05-12-2020 Emergency department patient visit Rubin Troncoso Work Phone: [facility] Start: 01-12-2020 End: 01-12-2020 Emergency department patient visit Micheline Veloz Work Phone: [facility] Start: 01-10-2020 End: 01-10-2020 Postop follow up visit related to original px Bruno Thompson Work Phone: [facility] Comment on above: Encounter for postop erative care (Primary Dx) Start: 12-26-2019 End: 12-26-2019 Subsequent hospital visit by physician Bruno Thompson Work Phone: [facility] Comment on above: Soft tissue mass Start: 12-15-2019 End: 12-15-2019 Emergency department patient visit Uli Bejarano Work Phone: [facility] Start: 12-13-2019 End: 12-13-2019 Office consultation new/estab patient 60 min Bruno Cartermaxwell Work Phone: [facility] General Surgery Comment on above: Soft tissue mass (Pr imary Dx); Preoperative clearance Start: 10-16-2019 End: 10-16-2019 Emergency department patient visit Rubin Troncoso Work Phone: [facility] Start: 10-04-2019 End: 10-04-2019 Emergency department patient visit Kash Balderramabereantione Work Phone: [facility] Start: 08-14-2019 End: 08-14-2019 Emergency department patient visit Rubin Troncoso Work Phone: [facility] Start: 05-31-2019 End: 05-31-2019 Emergency department patient visit Micheline Veloz Work Phone: [facility] Start: 05-13-2019 End: 05-13-2019 Emergency department patient visit Rubin Troncoso Work Phone: [facility] Start: 02-05-2019 End: 02-05-2019 Outside Orders Historical Provider [facility] Start: 10-03-2018 End: 10-03-2018 Outside Orders Historical Provider [facility] Start: 09-16-2018 End: 09-16-2018 Emergency department patient visit Rubin Troncoso Work Phone: [facility] Start: 08-31-2018 End: 09-01-2018 Emergency department patient visit Micheline Veloz Work Phone: [facility] Start: 08-22-2018 End: 08-22-2018 Patient encounter procedure Historical Provider [facility] Start: 08-12-2018 End: 08-12-2018 Emergency department patient visit Adan Mueller Work Phone: [facility] Procedures Date Procedure Procedure Detail Performing Clinician Start: 01-29-2022 SPINAL INJECTION Arlene Titus MD Work Phone: Start: 12-09-2021 Arthrocentesis aspir&/inj small jt/bursa w/o us Marylin Brink MD Work Phone: Start: 12-04-2021 Mri pelvis w/o contrast material Marylin Brink MD Work Phone: Start: 11-25-2021 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/2 muscles Marylin Brink MD [...] End: 05-30-2021 Albumin serum plasma/whole blood Zelalem Ortiz Pay DO Work Phone: Start: 05-30-2021 Complete blood count with white cell differential, automated Zelalem Hampton DO Work Phone: Start: 05-30-2021 Heterophile antibodies screen Zelalem Ortiz Pay DO Work Phone: Start: 05-30-2021 Urinalysis microscopic only Zelalem jorgensen DO Work Phone: Start: 05-30-2021 Urinalysis, reagent strip without microscopy Zelalem Hampton DO Work Phone: Start: 02-21-2021 SARS-CoV-2 (COVID-19) RdRp gene [Presence] in Respiratory specimen by SHIRA with probe detection Chio Chapman BEAM WORKER Work Phone: Start: 01-09-2021 Radex spine lumbosacral minimum 4 views Jaxon Weston MD Work Phone: Start: 01-09-2021 Gonadotropin chorionic qualitative Jaxon Weston MD Work Phone: Start: 01-09-2021 Urinalysis, reagent strip without microscopy Jaxon Weston MD Work Phone: Start: 01-05-2021 Urine test visual color cmprsn meths Chio Chapman BEAM WORKER Work Phone: Start: 07-18-2020 MRI of brain and brain stem Tasha Toddlinda Work Phone: Start: 05-12-2020 X-ray of right foot Rubin Troncoso Work Phone: Start: 12-26-2019 Choriogonadotropin ( test) [Presence] in Urine Med Amezcua Work Phone: Start: 02-05-2019 ORDERS (OUTSIDE) Historical Provider Start: 10-03-2018 LABS (OUTSIDE) Historical Provider Start: 09-01-2018 CT of entire head Micheline Veloz Work Phone: Start: 09-01-2018 Assay of magnesium Micheline Veloz Work Phone: Start: 09-01-2018 Basic metabolic panel calcium total Eliseate Natalia Veloz Work Phone: Start: 09-01-2018 CBC, EDIF, PLATELET Telemate Natalia Veloz Work Phone: Start: 09-01-2018 TOXICOLOGY DRUG SCREEN, URINE Eliseate Natalia Veloz Work Phone: Start: 08-22-2018 Assay of [...] Work Phone: Start: 08-12-2018 CBC, EDIF, PLATELET dAan Mueller Work Phone: Start: 08-12-2018 Choriogonadotropin ( test) [Presence] in Serum or Plasma Adan Mueller Work Phone: Start: 08-12-2018 Creatinine blood Adan Mueller Work Phone: Start: 08-12-2018 Urinalysis microscopic only Adan rothman Work Phone: Start: 08-12-2018 URINALYSIS, MACRO Adan Mueller Work Phone: Plan of Treatment Date Care Activity Detail Author Start: 06-09-2023 [facility] Start: 04-21-2022 End: 04-21-2022 Patient encounter procedure 04/21/2022 Office Visit Anesthesiology Pain Mgt Arlene Titus MD [address] [place] [address] [facility] Start: 03-03-2022 End: 03-03-2022 Patient encounter procedure 03/03/2022 Office Visit Orthopaedics Marylin Brink MD [address] [place] [address], [place] [address] [facility] Start: 02-18-2022 End: 02-18-2022 Patient encounter procedure [facility] Start: 02-17-2022 End: 02-17-2022 Patient encounter procedure 02/17/2022 Office Visit Anesthesiology Pain MgArlene Cheney MD [address] [place] [address] [facility] Start: 02-12-2022 End: 02-12-2022 Patient encounter procedure 02/12/2022 Office Visit Anesthesiology Pain Mgt Arlene Titus MD [address] [place] [address] [facility] Procedural Pain Management Start: 02-04-2022 End: 02-04-2022 Patient encounter procedure [facility] Start: 02-03-2022 End: 02-03-2023 MR Hip - right WO contrast MRI HIP RIGHT WITHOUT CONTRAST Imaging Routine Facet arthropathy Sacroiliitis Expected: 02/03/2022, Expires: 02/03/2023 [facility] Comment on above: Expected: 02/03/2022 , Expires: 02/03/2023 Start: 02-03-2022 End: 02-03-2022 Patient encounter procedure 02/03/2022 Office Visit Anesthesiology Pain Mgt Diamond Garay MD [address] [place] [address], [place] [address] [facility] Start: 01-29-2022 End: 01-29-2023 Fluoroscopy guided nasogastric tube procedure [facility] Comment on above: Expected: 01/29/2022 , Expires: 01/29/2023 1 Occurrences starti ng 01/29/2022 until 01/29/2022 Start: 01-29-2022 End: 01-29-2022 Patient encounter procedure 01/29/2022 Office Visit Anesthesiology Pain Mgt Arlene Titus MD [address] [place] [address] [facility] Start: 01-27-2022 End: 01-27-2022 Patient encounter procedure 01/27/2022 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 Iraida Hudson, DO [address] [place] [address] [place] [address] [facility] Start: 01-21-2022 Influenza vaccination [facility] Start: 01-11-2022 End: 01-11-2022 Patient encounter procedure 01/11/2022 Office Visit OrthopaedicMarylin Wheeler MD [address] [facility] [place] [address] [facility] Start: 01-05-2022 End: 01-05-2022 Patient encounter procedure 01/05/2022 Office Visit Anesthesiology Pain Mgt Arlene Titus MD [address] [place] [address] [facility] Start: 12-28-2021 End: 12-28-2021 Patient encounter procedure 12/28/2021 Office Visit Marylin Guerra MD [address] [facility] [place] [address] [facility] Start: 12-10-2021 End: 12-10-2021 ambulatory 12/10/2021 Rehab Services Visit Physical Therapy Marylin Brink MD [address] [facility] [place] [address] Ana Valentine PTA [facility] [place] Start: 12-09-2021 End: 12-09-2021 Patient encounter procedure 12/09/2021 Office Visit OrthopaedicMarylin Wheeler MD [address] [facility] [place] [address] [facility] Start: 12-08-2021 End: 12-08-2021 ambulatory 12/08/2021 Rehab Services Visit Physical Therapy Marylin Brink MD [address] [facility] [place] [address] Alicia Quinn PTA [facility] [place] Start: 12-07-2021 End: 12-07-2021 Patient encounter procedure 12/07/2021 Office Visit Orthopaedics Marylin Brink MD [address] [place] [address] [facility] Start: 12-04-2021 End: 12-04-2021 Patient encounter procedure 12/04/2021 Appointment Magnetic Resonance Imaging Marylin Brink MD [address] [place] [address] [facility] Start: 12-03-2021 End: 12-03-2021 ambulatory 12/03/2021 Rehab Services Visit Physical Therapy Marylin Brink MD [address] [place] [address] Alicia Quinn PTA [facility] [place] Start: 12-03-2021 End: 12-03-2021 Patient encounter procedure 12/03/2021 Office Visit Orthopaedics Marylin Brink MD [address] [place] [address] [facility] Start: 11-27-2021 End: 11-27-2021 ambulatory 11/27/2021 Rehab Services Visit Physical Therapy Marylin Brink MD [address] [place] [address] Maile Day, BARNEY [facility] [place] Start: 10-29-2021 End: 10-29-2021 Patient encounter procedure 10/29/2021 Office Visit General Surgery Bruno Thompson, DO [address] [facility] [place] [address] [facility] Start: 10-23-2021 Thyroid stimulating hormone measurement [facility]SH [facility] Start: 06-13-2021 TSH Qn TSH [facility] Start: 06-03-2021 End: 06-03-2021 Patient encounter procedure 06/03/2021 Office Visit Anesthesiology Pain Mgt Mary Ellen Valles, SENIOR SALES EXECUTIVE-BEAM WORKER [address] [facility] [place] [address] [facility] Start: 04-22-2021 TSH Qn TSH [facility] Start: 04-01-2021 End: 04-02-2021 DRUG SCREEN MED COMPLIANCE I DRUG SCREEN MED COMPLIANCE I Lab Routine Medication monitoring encounter Expected: 04/01/2021, Expires: 04/02/2021 [employer] [facility] Comment on above: Expected: 04/01/2021 , Expires: [...] Visit General Surgery Bruno Thompson, DO [address] [place] [address] [phone] [facility] Start: 12-26-2019 Hospital Encounter 12/26/2019 Hospital Encounter Multispecialty Bruno Thompson, DO [address] [place] [address] [phone] Soft tissue mass [facility] Comment on above: Soft tissue mass Start: 12-14-2019 End: 12-13-2020 NOVEL CORONAVIRUS- NASOPHARYNGEAL NOVEL CORONAVIRUS- NASOPHARYNGEAL Microbiology STAT Preoperative clearance Expected: 12/14/2019, Expires: 12/13/2020 [employer] Comment on above: Expected: 12/14/2019 , Expires: 12/13/2020 Start: 12-14-2019 Procedure Pass 12/14/2019 Pro cedure Pass [facility] Start: 10-04-2019 TSH Qn TSH [facility] Start: 08-23-2019 Thyrotropin Qn TSH [facility] Start: 01-21-[address] [facility] Start: 01-21-2018 Influenza vaccination INFLUENZA VACC INE (#1) [facility] Start: 2017 Screening for malign ant neoplasm of cervix [facility] Start: 2015 Third diphtheria, tetanus and acellular pertussis (DTaP) vaccination TDAP (ADULT) [facility] Start: 2014 Hepatitis C screening Hepatitis C Sc reening [facility] Start: 2014 Tetanus vaccination TETANUS [facility] Start: 2012 Screening for Chlamy lai trachomatis CHLAMYDIA SCREEN [facility] Start: 2011 HIV screening [facility] Start: 2011 Vaccination for gary n papillomavirus HPV VACCINE ADOL (1 - Female 3-dose series) [facility] Start: 2009 HIV screening HIV SCREENING DISCUSSI ON [facility] Start: 2008 COVID-19 Vaccine (1) COVID-19 Vaccin e (1) [facility] Start: 2008 Depression screening using PHQ-9 (Patient Health Questionnaire 9) score [facility] Start: 2007 Vaccination for gary n papillomavirus [facility] Start: 2002 PNEUMOCOCCAL VACCINE SERIES (1 - PCV) PNEUMOCOCCAL VACCINE SERIES (1 - PCV) [facility] Start: 2001 COVID-19 Vaccine (#1) COVID-19 Vacci ne (#1) [facility] Start: 2001 COVID-19 VACCINE (1) COVID-19 VACCIN E (1) [facility] Start: 1999 History and physical examination, annual for health maintenance Wellness Visit [facility] Start: 1996 COVID-19 VACCINE (#1) COVID-19 VACCI NE (#1) [facility] Start: 1996 GONORRHEA SCREEN GONORRHEA SCREEN [facility] Start: 1996 Hepatitis C antibody , confirmatory test HEPATITIS C VIRUS SCREENING [facility] Start: 1996 Hepatitis C screening HEPATITI S C VIRUS SCREENING [facility] Start: 1996 Screening for Chlamy lai trachomatis [facility] Start: 1996 Screening for malign ant neoplasm of cervix Pap Smear [facility] Start: 1996 Tetanus vaccination [facility] Bacteria identified in Unspecified specimen by Aerobe culture Urine Aerobic Culture Microbiology Routine Dysuria 08/20/2021 2:41 PM EDT [facility] End: 08-20-2022 Chlamydia trachomatis rRNA assay Chlamydia/GC/Trichomonas Amplified RNA Microbiology Routine Dysuria 1 Occurrences starting 08/20/2021 until 08/20/2022 [facility] Work Phone: Comment on above: 1 Occurrences starti ng 08/20/2021 until 08/20/2022 Chlamydia trachomati s rRNA assay Chlamydia/GC/Trichomonas Amplified RNA Microbiology Routine Dysuria 08/20/2021 2:32 PM EDT [facility] Narrative [Interpretation] Study observation.general transvaginal 1st trimester US US OB TRANSVAGINAL/CERVICAL LENGTH Imaging STAT 08/12/2018 3:43 PM EDT [facility] Hepatitis A virus antibody, IgM type [facility] Hepatitis B core antibody measurement, IgM type [facility] Hepatitis B virus surface Ag [Presence] in Serum or Plasma by Immunoassay [facility] Hepatitis C virus Ig G Ab [Presence] in Serum or Plasma by Immunoassay [facility] Hepatitis C virus RN A [log units/volume] (viral load) in Serum or Plasma by SHIRA with probe detection [facility] Hepatitis C virus RN A [Units/volume] (viral load) in Serum or Plasma by SHIRA with probe detection [facility] End: 12-04-2021 MR Lumbar spine WO contrast [facility] Comment on above: 1 Occurrences starti ng 12/04/2021 until 12/04/2021 Neisseria gonorrhoea e nucleic acid detection Chlamydia/Gonorrhoeae Amplified RNA Microbiology Routine Dysuria 08/20/2021 2:32 PM EDT [facility] SURGICAL PATHOLOGY REQUEST SURGICAL PATHOLOGY REQUEST Surg Path Routine Soft tissue mass Release Upon Ordering for 1 Occurrences starting 12/26/2019 [facility] Comment on above: Release Upon Orderin g for 1 Occurrences starting 12/26/2019 T-UPTAKE,T4,FTI,TSH T-UPTAKE,T4, FTI,TSH Lab Routine 10/03/2018 7:39 PM [facility] [employer] Trichomonas vaginali s Amplified RNA Trichomonas vaginalis Amplified RNA Microbiology Routine Dysuria 08/20/2021 2:32 PM EDT [facility] TSH W/FT4 REFLEX TSH W/FT4 REFLE X Lab Routine 10/03/2018 7:39 PM [facility] [employer] XR Femur - right Views XR FEMUR RIGHT Imaging Routine Closed fracture of sacrum and coccyx, initial encounter 11/25/2021 11:29 AM ED [employer] XR Femur - right Views XR FEMUR RIGHT Imaging Routine Fall, initial encounter 12/28/2021 11:17 AM [facility] [employer] XR Lumbar spine View s W right bending and W left bending XR LUMBAR SPINE BENDING ONLY 4+ VW Imaging Routine Closed fracture of sacrum and coccyx, initial encounter 11/25/2021 11:27 AM [employer] End: 01-23-2022 XR Lumbar spine Views W right bending and W left bending XR SPINE LUMBAR W BENDING Imaging Routine Accidental fall on or from stairs or steps, initial encounter 1 Occurrences starting 01/23/2022 until 01/23/2022 [employer] Work Phone: Comment on above: 1 Occurrences starti ng 01/23/2022 until 01/23/2022 XR Pelvis AP XR PELVIS AP ONL Y Imaging Routine Closed fracture of sacrum and coccyx, initial encounter 11/25/2021 11:28 AM [employer] [facility] XR Pelvis AP XR PELVIS AP ONL Y Imaging Routine Fall, initial encounter 12/28/2021 11:17 AM [facility] [employer] XR Sacrum and Coccyx 2 Views XR SACRUM/COCCYX 2+ VW Imaging Routine Closed fracture of sacrum and coccyx, initial encounter 11/25/2021 11:28 AM [employer] End: 01-23-2022 XR Sacrum and Coccyx 2 Views XR SACRUM/COCCYX 2+ VW Imaging Routine Accidental fall on or from stairs or steps, initial encounter 1 Occurrences starting 01/23/2022 until 01/23/2022 [employer] Work Phone: Comment on above: 1 Occurrences starti ng 01/23/2022 until 01/23/2022 Payers Date Payer Category Payer Self-pay [id number] 2019 Medicaid MEDICAID MEDICAI D xxxxxxxxxxxx 2019-Present [id number] 2019 Medicaid [id number] [id number] .[id number] 2019 Medicaid [id number]. 1.13.385.2.7.3 .622825.315 2019 Medicaid [id number] 2018 Medicare [id number] [id number].3 .309828.315 2018 Medicare [id number]. 1.13.385.2.7.3 .948378.315 2018 Medicare [id number] 2018 Unknown [id number] 1.2.840.267885.1.13.172.2.7.3 .383030.315 1996 Unknown [id number] 2.16840.1.310929.3.579.2.903 1996 Unknown [id number] 2.840.1.635732.3.579.2.903 1996 Unknown [id number] 2.16840.1.305954.3.579.2.903 1996 Unknown [id number] 2.16840.1.556547.3.579.2.903 1996 Unknown [id number] 2.16840.1.259386.3.579.2.903 1996 Unknown [id number] 2.16840.1.113746.3.579.2.903 1996 Unknown [id number] 2.16.840.1.229093.3.579.2.903 1996 Unknown [id number] 2.16.840.1.365853.3.579.2.983 1996 Unknown [id number] 2.16.840.1.170620.3.579.2.983 1996 Unknown [id number] 2.16.840.1.748142.3.579.2.983 1996 Unknown [id number] 2.16.840.1.505949.3.579.2.983 1996 Unknown [id number] 2.16.840.1.267065.3.579.2.983 1996 Unknown [id number] 2.16.840.1.700975.3.579.2.983 1996 Unknown [id number] 2.16.840.1.351927.3.579.2.983 1996 Unknown [id number] 2.16.840.1.858637.3.579.2.983 1996 Unknown [id number] 2.16.840.1.723075.3.579.2.983 1996 Unknown [id number] 2.16.840.1.815021.3.579.2.983 1996 Unknown [id number] 2.16.840.1.125200.3.579.2.983 1996 Unknown [id number] 2.16.840.1.737221.3.579.2.983 1996 Unknown [id number] 2.16.840.1.779124.3.579.2.983 1996 Unknown [id number] 2.16.840.1.125941.3.579.2.983 1996 Unknown [id number] 2.16.840.1.680584.3.579.2.983 1996 Unknown [id number] 2.16.840.1.002946.3.579.2.983 1996 Unknown [id number] 2.16.840.1.614436.3.579.2.983 1996 Unknown [id number] 2.16.840.1.605363.3.579.2.983 1996 Unknown [id number] 2.16.840.1.832930.3.579.2.983 1996 Unknown [id number] 2.16.840.1.117223.3.579.2.983 1996 Unknown [id number] 2.16.840.1.523028.3.579.2.983 1996 Unknown [id number] 2.16.840.1.908130.3.579.2.983 1996 Unknown [id number] 2.16.840.1.218862.3.579.2.983 1996 Unknown [id number] 2.16.840.1.017713.3.579.2.983 1996 Unknown [id number] 2.16.840.1.655423.3.579.2.983 1996 Unknown [id number] 2.16.840.1.913052.3.579.2.983 1996 Unknown [id number] 2.16.840.1.158848.3.579.2.983 1996 Unknown [id number] 2.16.840.1.071958.3.579.2.983 1996 Unknown [id number] 2.16.840.1.768447.3.579.2.983 1996 Unknown [id number] 2.16.840.1.152203.3.579.2.983 1996 Unknown [id number] 2.16.840.1.713560.3.579.2.983 1996 Unknown [id number] 2.16.840.1.127522.3.579.2.983 1996 Unknown [id number] 2.16.840.1.282338.3.579.2.983 1996 Unknown [id number] 2.16.840.1.610497.3.579.2.983 1996 Unknown [id number] 2.16.840.1.509420.3.579.2.983 1996 Unknown [id number] 2.16.840.1.800389.3.579.2.983 1996 Unknown [id number] 2.16.840.1.515467.3.579.2.125 9 1996 Unknown [id number] 2.16.840.1.561808.3.579.2.125 9 1996 Unknown [id number] 2.16.840.1.698617.3.579.2.727 1996 Unknown [id number] 2.16.840.1.200244.3.579.2.727 Medicaid [employer] [id number] Unknown [id number] 2.16840.1.209808.3.579.2.531 Unknown [id number] 2.16840.1.493977.3.579.2.531 Unknown [id number] 2.16840.1.543376.3.579.2.531 Unknown [id number] 2.16840.1.761945.3.579.2.531 Unknown [id number] 2.16840.1.718267.3.579.2.531 Unknown [id number] 2.16840.1.588093.3.579.2.531 Social History Date Type Detail Facility Start: 08-12-2018 End: 01-05-2021 Tobacco smoking status NHIS Never smoker [facility] Start: 1996 Sex Assigned At Not on file A [facility] Start: 06-30-2018 [facility] Start: 05-13-2019 End: 12-11-2021 Alcohol intake Ex-drinker (finding) [facility] Start: 03-22-2019 End: 10-04-2019 Tobacco smoking status NHIS Former smoker [facility] Start: 08-14-2019 Tobacco Comment quit 2018 [facility] Start: 10-01-2021 End: 01-24-2022 Exposure to SARS-CoV-2 (event) Not sure [facility] Start: 10-16-2019 End: 05-30-2021 Tobacco use and exposure Never used [facility] Start: 09-16-2018 Alcohol intake Not Currently [facility] Start: 01-05-2021 End: 10-11-2021 Alcohol intake Lifetime non-drinker (finding) [facility] Start: 01-05-2021 History SDOH Alcohol Frequency 1 [facility] End: 05-23-2017 History of tobacco use Current smoker [employer] [facility] End: 05-23-2017 History of tobacco use Cigarette Smoker [employer] [facility] Start: 05-30-2021 End: 05-23-2017 Tobacco smoking status AKIS Light tobacco smoker [facility] Start: 05-30-2021 Tobacco Comment Few [facility] Start: 10-11-2021 Tobacco smoking stat us AKIS Occasional tobacco smoker [facility] Start: 10-11-2021 Cigarette pack-years [facility] Start: 1996 Sex Assigned At Female F [facility] Tobacco [facility] Comment on above: pt states she is exp osed to second hand smoke from step dad Tobacco smoking status No Smokin g Status Entered [facility] Goals Date Patient Goal Desired Activity /State [...] AD without a limp) & no falls. 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 Decrease pain of LB & R [...] & grocery shopping. Clinical Notes 01-05-2021 to 11-14-2023 Betty Aguero - 02/03/2022 2:00 PM EDTDiamond Garay MD - 02/03/2022 2:00 PM EDTPatient InstructionsAreric Titus MD - 01/29/2022 1:30 PM EDTAreric Titus MD - 01/29/2022 1:30 PM EDT Note Date & Type Note Facility 11-14-2023 Evaluation + Plan note Diagnostic Tests PendingRPR with Conf Rfx 11/14/23epatitis B Surface Antigen 11/14/23Rubella Antibody IgG 11/14/23Urine Culture 11/14/23IV Screen 4th Generation wRfx 11/14/23 [facility] 02-03-2022 History of Present illness Narrative HPI: Herminio Simon Presents for [...] abnormalities were identified. documented in this encounter [facility] 02-03-2022 Tanner Agureo - 02/03/2022 2:00 PM EDT Images from [...] [facility]st [facility]. Please allow approximately 2 hours total for [...] of treatment. Please call the office at [phone] if you have additional questions. Sacroiliac Joint [...] are extremely rare. documented in this encounter [facility] 01-29-2022 History and physical note HPI: This 26 y.o. female presents [...] AXILLARY 12/26/2019 Surgeon: Bruno Thompson DO; Location: [facility] BUC OR TREATMENT INDUCED W/ DILATION [...] with bilateral lumbar L4-5, L5-S1 facet block [facility] 01-29-2022 History and physical note HPI: This 26 y.o. female presents [...] AXILLARY 12/26/2019 Surgeon: Bruno Thompson DO; Location: [facility] OR TREATMENT INDUCED W/ DILATION & EVACUATION [...] L5-S1 facet block documented in this encounter [facility] 01-29-2022 History of Present illness Narrative SCRUB - JAIMEE Vasquez RT - RT Samanta MOSAIC LAYER - N/A DEVOPS CONSULTANT - Marta Cates RN Physician - Dr. Titus Site cleansed with more. documented in this encounter [facility] 01-29-2022 Procedure note Associated Ord er(s): SPINAL [...] verified and consents confirmed. PROCEDURE DETAILS: The technical support representative's and physician's hands were washed immediately prior to the procedure using a chlorhexidine soap or sanitized using ethyl alcohol hand hand ii thermal cutter. Hat, mask, and sterile gloves were used [...] and earlier as needed. Note angulation above [facility] 01-29-2022 Procedure note Associated Ord er(s): SPINAL [...] verified and consents confirmed. PROCEDURE DETAILS: The technical support representative's and physician's hands were washed immediately prior to the procedure using a chlorhexidine soap or sanitized using ethyl alcohol hand hand ii thermal cutter. Hat, mask, and sterile gloves were used [...] Note angulation above documented in this encounter [facility] 12-09-2021 History of Present illness Narrative Associated Order(s): SMALL JOINT/BURSA INJECTION [...] AXILLARY 12/26/2019 Surgeon: Bruno Thompson DO; Location: [facility] OR TREATMENT INDUCED W/ DILATION & EVACUATION [...] by her father, who is now in senior care for that reason. 5. Right piriformis syndrome [...] severely limiting injury. documented in this encounter [facility] 12-03-2021 History of Present illness Narrative 12/03/21 The patient is a [...] AXILLARY 12/26/2019 Surgeon: Bruno Thompson DO; Location: [facility] OR TREATMENT INDUCED W/ DILATION & EVACUATION [...] by her father, who is now in senior care for that reason. 5. Right piriformis syndrome [...] severely limiting injury. documented in this encounter [facility] 12-01-2021 History of Present illness Narrative 12/01/21 The patient is a [...] AXILLARY 12/26/2019 Surgeon: Bruno Thompson DO; Location: [facility] OR TREATMENT INDUCED W/ DILATION & EVACUATION [...] by her father, who is now in senior care for that reason. 5. Right piriformis syndrome [...] AXILLARY 12/26/2019 Surgeon: Bruno Thompson DO; Location: [facility] OR TREATMENT INDUCED W/ DILATION & EVACUATION [...] by her father, who is now in senior care for that reason. 5. Right piriformis syndrome [...] notes on file documented in this encounter [facility] 11-25-2021 History of Present illness Narrative Associated Order(s): LOWER EXTREMITY INJECTION [...] AXILLARY 12/26/2019 Surgeon: Bruno Thompson DO; Location: [facility] OR TREATMENT INDUCED W/ DILATION & EVACUATION [...] by her father, who is now in senior care for that reason. 5. Right piriformis syndrome [...] prepped with alcohol. documented in this encounter [facility] 11-12-2021 History of Present illness Narrative 11/12/21 The patient is a pleasant 26 y.o. female. Chief Complaint Patient presents with Lower Back - New Patient, Pain, ED Follow-up Patient fell on October 10 and broke the sacrum. Patient is scheduled to see a Dr. Ceron at [facility] referred by PCP. Patient was unable to [...] for 15 min & rest 1 hr.& rn radiation complaint: Pain hip,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 Skin (Faroese) documented in this encounter* Instructions* Rubin Troncoso, - 10/16/2019 Thank you for allowing us [...] You may find a provider through the [facility]ician Referral Service by calling [phone] or by visiting [email or web address] Thank You for choosing the [facility] Emergency Department! * Attachments The following attachments cannot be sent through Care Everywhere. * Epidermoid Cyst (Faroese) documented in this encounter* Attachments The following attachments cannot be sent through Care Everywhere. * Strep Throat (Faroese) documented in this encounter* Instructions* Elie Ramirez [...] to reach your doctor call: The hospital lathe setup operator at . Ask for the resident environmental control administrator for your doctor. - [facility] Emergency Department [...] You may find a provider through the [facility]ician Referral Service by calling [phone] or by visiting [email or web address] Thank You for choosing the [facility] Emergency Department! * Attachments The following attachments cannot be sent through Care Everywhere. * Foreign Body in the Skin (Faroese) documented in this encounter* Attachments The following attachments cannot be sent through Care Everywhere. * Paraesthesias (Faroese) documented in this encounter* Attachments The following attachments cannot be sent through Care Everywhere. * Tooth and Gum Pain (Faroese) documented in this encounter Assessments Diagnosis Pharyngitis [...] SURGERY INSTRUCTIONS Your surgery is scheduled at [facility] on Tuesday, December 25. Pre-admission testing [...] cancel your surgery, please call the office [phone] COVID-19 TESTING AT [facility] 8a-1:30p Registration will call and schedule your [...] not apply lotions, perfumes, deodorants, or nail faroese. At the hospital, clinic, or doctor's office [...] Where can you learn more? Go to [email or web address]. Enter T216 in the search box to learn more about 'Skin Lesion Removal: Before Your Procedure.' Interested in seeing a video go to [email or web address] to see all video content. Current as of: March 22, 2019 Content Version: 12.5 [id number] [employer]. Care instructions adapted under license by your healthcare professional. If you have questions about a medical condition or this instruction, always ask your healthcare professional. [employer] disclaims any warranty or liability for your [...] - 01/10/2020 2:30 PM EDT Subjective @Herminio Simon presents to the clinic post op Eating [...] FoundDocuments on File Type Date Recorded Patient Soubrette Expl anation Advance Directives and Living Will Advance Directive Response Recorded Date/ Time Advance Directives No March 1:42pm Summary Purpose Family History No Family History Records FoundNo Family History Records FoundNo Family History Records FoundNo Family History Records FoundNo Family History Records FoundNo Family History Records Found No data available for this section No Family History Records FoundNo Family History [...] intermittent l ow abd 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 Per patient started as small raised area, progressively worsened. 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 Reason Comments Abscess c/o pain to [...] tissue mass Soft tissue mass [M79.89] Procedures VT EXC TUMOR SOFT TISSUE UPPER ARM/ELBOW SUBQ 3+CM EXCISION LESION SOFT TISSUE UPPER EXTREMITY Bruno Thompson, [address] [place] [id number] Reason Comments Post Op Visit Left axillary [...] left eye Procedures MRI BRAIN WITHOUT CONTRAST VT MRI BRAIN Tasha Mehta MD [address] [place] [address] [facility] Mri [address] [place] [address] Reason Comments Tingling increased dose of Sy nthroid today from 75 to 88 mcg, 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 complains of abd pain and vomiting for last 3 weeks after eating food. Pt. states zoiGrez LLCan isn't working. Pain 11/29. Reason Comments Urinary Tract Infection 1 week [...] complains of lower abd pain. Pain 7/10. 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 Fx sacrum/coccyx-closed, with routine healing, subsequent encounter Procedures MRI SPINE LUMBAR WITHOUT CONTRAST VT MRI, LUMBAR SPINE SpasicTasha MD [address] [place] [address] Amadoe Buc Mri [address] [place] [address] Referral ID Status Reason Start Date Expiration Date Visits Re quested Visits Authorized [id number] Closed 10/13/2021 11/07/2022 1 1 Reason Comments New Patient Patient fell on October 10 and broke the sacrum. Patient is scheduled to see a Dr. Ceron at [facility] referred by PCP. Patient was unable to [...] scheduled to see a Dr. Ceron at [facility] referred by PCP. Patient was unable to [...] scheduled to see a Dr. Ceron at [facility] referred by PCP. Patient was unable to [...] encounter Procedures MRI SPINE LUMBAR WITHOUT CONTRAST VT MRI, LUMBAR SPINE Marylin Brink MD [address] [place] [address] [facility] Mri [address] [place] [address] Referral ID Status Reason Start Date Expiration Date Visits Re quested Visits Authorized [id number] Closed 12/01/2021 12/26/2022 1 1 Specialty Diagnoses / Procedures Referred By Contac t Referred To Contact Magnetic Resonance Imaging Diagnoses Closed fracture of sacrum and coccyx, initial encounter Procedures MRI SACRUM WITHOUT CONTRAST VT MRI, PELVIS, W/O CONTRAST Marylin Brink MD [address] [place] [address] [facility] Mri [address] [place] [address] Referral ID Status Reason Start Date Expiration Date Visits Re quested Visits Authorized [id number] Closed 12/01/2021 12/26/2022 1 1 Reason Comments Paperwork Here for prescriptio n for pain meds Reason Comments Follow-up Pain Reason Comments Pain Specialty Diagnoses / Procedures Referred By Contac t Referred To Contact Diagnoses Lumbar spondylosis Arlene Titus MD [address] [place] [address] Referral ID Status Reason Start Date Expiration Date Visits Re quested Visits Authorized [id number] Closed 01/05/2022 01/30/2023 1 1 Specialty Diagnoses / Procedures Referred By Vince t Referred To Contact Diagnoses Lumbar spondylosis Procedures XR FLUORO PAIN MANAGEMENT Arlene Titus MD [address] [place] [address] Referral ID Status Reason Start Date Expiration Date V isits Requested Visits Authorized [id number] New Request 01/29/2022 02/23/2023 1 1 Reason [...] Micheline Watkins MD - 01/12/2020 10:32 PM MARINATSwetha Salinas RN - 01/12/2020 10:25 PM EDT ED Notes (unrecognized secti on and content) Dr Troncoso at bedside. Emergency Department Report [facility] EMERGENCY MEDICINE Service Date:.05/12/20 PCP: Rekha Payton Chief Complaint: Chief Complaint Patient presents with Foreign Body Removal pt reports that she has a splinter in her right heel x 2 hours. pt states that she was able to romove some of it. pt reports it is painful to walk on. ONEAL Simon is a 24 y.o. female presents [...] AXILLARY 12/26/2019 Surgeon: Bruno Thompson DO; Location: [facility] OR TREATMENT INDUCED W/ DILATION & EVACUATION [...] file Gets together: Not on file Attends temple service: Not on file Active member of [...] patient with above information. Rubin Troncoso DO 05/12/20 2228 documented in this encounter History Chief Complaint [...] AXILLARY 12/26/2019 Surgeon: Bruno Thompson DO; Location: [facility] OR TREATMENT INDUCED W/ DILATION & EVACUATION [...] ear normal. Nose: Nose normal. Mouth/Throat: Lips: [employer]. Mouth: Mucous membranes are moist. Dentition: Abnormal [...] with Dentist followup. Micheline Veloz MD 01/12/[address] Veloz in Patient states dentist appointment on January 28 documented in this encounter Care Teams (unrecognized sec tion and content) Custom Harvester Relationship Specialty Start Date End Date Tasha Mehta CNP [address] [facility] [place] [address] PCP - General Nurse Practitioner 01/05/21 Custom Harvester Relationship Specialty Start Date End Date Tasha Mehta CNP [address] [facility] [place] [address] PCP - General Nurse Practitioner 01/05/21 Custom Harvester Relationship Specialty Start Date End Date Tasha Mehta MD [address] [place] [place] [address] PCP - General Nurse Practitioner - [facility] 07/17/20 Custom Harvester Relationship Specialty Start Date End Date Tasha Mehta MD [address] [place] [place] [address] PCP - General Nurse Practitioner - [facility] 07/17/20 Custom Harvester Relationship Specialty Start Date End Date Tasha Mehta CNP [address] [facility] [place] [address] PCP - General Nurse Practitioner 01/05/21 Custom Harvester Relationship Specialty Start Date End Date Tasha Mehta CNP [address] [facility] [place] [address] PCP - General Nurse Practitioner 01/05/21 Custom Harvester Relationship Specialty Start Date End Date Tasha Mehta MD [address] [place] [address] PCP - General Nurse Practitioner - [facility] 07/17/20 Custom Harvester Relationship Specialty Start Date End Date Spasic, Tasha , BEAM WORKER [address] [place] [address] PCP - General Nurse Practitioner 01/05/21 Custom Harvester Relationship Specialty Start Date End Date Tasha Mehta MD [address] [place] [address] PCP - General Nurse Practitioner - [facility] 07/17/20 Custom Harvester Relationship Specialty Start Date End Date Tasha Mehta MD [address] [place] [address] PCP - General Nurse Practitioner - [facility] 07/17/20 Custom Harvester Relationship Specialty Start Date End Date Tasha Mehta MD [address] [place] [address] PCP - General Nurse Practitioner - [facility] 07/17/20 Custom Harvester Relationship Specialty Start Date End Date Tasha Mehta MD [address] [place] [address] PCP - General Nurse Practitioner - [facility] 07/17/20 Custom Harvester Relationship Specialty Start Date End Date Tasha Mehta MD [address] [place] [address] PCP - General Nurse Practitioner - [facility] 07/17/20 Custom Harvester Relationship Specialty Start Date End Date Tasha Mehta MD [address] [place] [address] PCP - General Nurse Practitioner - [facility] 07/17/20 Custom Harvester Relationship Specialty Start Date End Date Tasha Mehta MD [address] [place] [address] PCP - General Nurse Practitioner - [facility] 07/17/20 Custom Harvester Relationship Specialty Start Date End Date Tasha Mehta MD [address] [place] [address] PCP - General Nurse Practitioner - [facility] 07/17/20 Custom Harvester Relationship Specialty Start Date End Date Tasha Mehta MD [address] [place] [address] PCP - General Nurse Practitioner - [facility] 07/17/20 Custom Harvester Relationship Specialty Start Date End Date Tasha Mehta MD [address] [place] [address] PCP - General Nurse Practitioner - [facility] 07/17/20 Custom Harvester Relationship Specialty Start Date End Date Tasha Mehta MD [address] [place] [address] PCP - General Nurse Practitioner - [facility] 07/17/20 Custom Harvester Relationship Specialty Start Date End Date Tasha Mehta MD [address] [place] [address] PCP - General Nurse Practitioner - [facility] 07/17/20 Custom Harvester Relationship Specialty Start Date End Date Tasha Mehta MD [address] [place] [address] PCP - General Nurse Practitioner - [facility] 07/17/20 Custom Harvester Relationship Specialty Start Date End Date Tasha Mehta MD [address] [place] [address] PCP - General Nurse Practitioner - [facility] 07/17/20 Custom Harvester Relationship Specialty Start Date End Date Tasha Mehta MD [address] [place] [address] PCP - General Nurse Practitioner - [facility] 07/17/20 Custom Harvester Relationship Specialty Start Date End Date Tasha Mehta MD [address] [place] [address] PCP - General Nurse Practitioner - [facility] 07/17/20 Team Status: Active Member Role Status [facility] Primary Care Provider Active Team Status: Inactive Member Role Status Dates [facility] Primary Care Provider Active Tasha Mehta NP-C Attending Provider Active Team Status: Inactive Member Role Status Dates Tasha Mehta NP-C Attending Provider Active Start: June 09, 2023 End: June 09, 2023 Team Status: Inactive Member Role Status Dates Tasha Mehta NP-C Attending Provider Active Start: September 01, 2023 End: September 01, 2023 Team Status: Inactive Member Role Status Dates Tasha Mehta NP-C Attending Provider Active Start: October 27, 2023 [...] section and content) DATE CREATED AUTHOR 10/11/2021 [facility] DATE CREATED AUTHOR AUTHOR'S ORGANIZ ATION 11/03/2021 [facility] DATE CREATED AUTHOR AUTHOR'S ORGANIZ ATION 03/16/2022 [facility] DATE CREATED AUTHOR AUTHOR'S ORGANIZ ATION 04/20/2022 [facility] [place] [facility] DATE CREATED AUTHOR AUTHOR'S ORGANIZ ATION 06/17/2023 [facility] DATE CREATED AUTHOR AUTHOR'S ORGANIZ ATION 11/05/2023 [facility] DATE CREATED AUTHOR AUTHOR'S ORGANIZ ATION 11/15/2023 [facility] EPIC DATE CREATED AUTHOR AUTHOR'S ORGANIZ ATION 11/15/2023 [facility] Goals (unrecognized section and content) Goals may be documented in a n alternate sectionGoals may be documented in an alternate sectionGoals may be documented in an alternate sectionGoals may be documented in an alternate section No data available for this section FOR RECORDS PERTAINING TO PATIENTS WHO [...] BE BASED ON THE PRIMARY CLINICAL RECORDS. [facility]. provides no warranty or guarantee of the accuracy or completeness of information in this document.
[2023-11-16 23:53] LABS: Basophils Percent Auto 0.1 % (0.2-2.0); Eosinophils Percent Auto 0.5 % (0.9-7.0); Hematocrit 39.3 % (36.0-48.0); Hemoglobin 13.2 g/dL (12.0-16.0); Immature Granulocytes Abs Auto 0.02 10^3/uL (0.00-0.03); Immature Granulocytes Pct Auto 0.3 % (0.0-0.5); Lymphocytes Absolute Auto 2.5 10^3/uL (1.2-3.8); Lymphocytes Percent Auto 33.2 % (20.5-60.0); Mean Corpuscular HGB Conc 33.6 g/dL (29.9-35.2); Mean Corpuscular Hemoglobin 30.1 pg (26.7-34.0); Mean Corpuscular Volume 89.5 fL (81.0-99.0); Mean Platelet Volume 9.1 fL (9.5-13.5); Monocytes Absolute Auto 0.6 10^3/uL (0.3-0.8); Monocytes Percent Auto 7.6 % (1.7-12.0); Neutrophils Absolute Auto 4.3 10^3/uL (1.4-6.5); Neutrophils Percent Auto 58.3 % (43.0-75.0); Platelet Count 227 10^3/uL (150-450); Red Blood Count 4.39 10^6/uL (4.20-5.40); Red Cell Distribution Width 12.2 % (11.0-15.0); White Blood Count 7.4 10^3/uL (4.0-11.0)
[2023-11-17 00:01] LABS: Cannabinoid Screen Urine POSITIVE (NEGATIVE)
[2023-11-17 00:02] LABS: Amphetamine Screen Urine NEGATIVE (NEGATIVE); Barbiturates Screen Urine NEGATIVE (NEGATIVE); Benzodiazepines Screen Urine NEGATIVE (NEGATIVE); Buprenorphine Screen Urine NEGATIVE (NEGATIVE); Cocaine Screen Urine NEGATIVE (NEGATIVE); Methadone Screen Urine NEGATIVE (NEGATIVE); Methamphetamines Screen Urine NEGATIVE (NEGATIVE); Opiate Screen Urine NEGATIVE (NEGATIVE); Oxycodone Screen Urine NEGATIVE (NEGATIVE); Phencyclidine Screen Urine NEGATIVE (NEGATIVE); Tricyclic Antidepressant Urine NEGATIVE (NEGATIVE)
[2023-11-17 00:07] LABS: Alanine Aminotransferase 20 U/L (14-59); Albumin Globulin Ratio 1.1; Alkaline Phosphatase 69 U/L (46-116); Anion Gap 12.8; Aspartate Amino Transferase 12 U/L (15-37); BUN Creatinine Ratio 17.4; Bilirubin Total 0.4 mg/dL (0.2-1.0); Calcium 9.3 mg/dL (8.5-10.1); Carbon Dioxide 25.4 mmol/L (21.0-32.0); Chloride 103 mmol/L (98-107); Estimated GFR (African America >60 (>=60); Estimated GFR (Non-African Ame >60 (>=60); Globulin 3.6 g/dL; Glucose 106 mg/dL (74-106); Potassium 3.2 mmol/L (3.5-5.1); Salicylate <2.8 mg/dL (<=19.9); Sodium 138 mmol/L (136-145); Total Protein 7.6 g/dL (6.4-8.2)
[2023-11-17 00:19] LABS: Acetaminophen <2.0 ug/mL (10.0-30.0); Ethanol <3 mg/dL
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
[2023-11-17 01:03] VITALS: BP 115/78; PULSE 76; O2SAT 100
== END 2023-11-17 01:03 | disposition home or self-care (01) ==
PROVIDERS: Emergency Provider Emergency Medicine
DX: O99.341 Other mental disorders complicating pregnancy, first trimester (principal); F31.9 Bipolar disorder, unspecified; F43.20 Adjustment disorder, unspecified; F17.200 Nicotine dependence, unspecified, uncomplicated; Z3A.09 9 weeks gestation of pregnancy; Z79.899 Other long term (current) drug therapy
CPT/HCPCS: 36415; 80053; 80179; 80307; 80320; 80329; 85025; 93005; 99284

== ENCOUNTER 2024-01-21 23:24 | Emergency (ER) | payer MEDICARE, MEDICAID, SELFPAY ==
[2024-01-21 23:26] VITALS: BP 126/91; PULSE 118; TEMP 36.8; O2SAT 100; BMI 22.7
--- OUTSIDE RECORDS SUMMARY | 2024-01-21 23:33 | XMS_ITS | CCD ---
Author Organization [facility] Care Team Providers Care Pitching Coach Name Role Phone Unavailable Primary Care Provider Unavailabl e [facility], [facility] Care Provider Rekha Payton Primary Care Provider [facility] Lin vailable [facility] Lin vailable Rekha Payton Primary Care Provider [phone] Rekha Payton Primary Care Provider Tasha Mehta Primary Care Provider [phone] Tasha Mehta CNP Primary Care Provide r Tasha Mehta MD Primary Care Provider Tasha Mehta CNP Primary Care Provide r TASHA MEHTA Primary Care Unavaila CHIO Arroyo Attending Unava ilable SPASICTASHA Primary Care Unavaila ble CHIO BLANCO Attending Unava ilable JAKOB FUNEZ Attending Unavailable SPASIC, TASHA RO Primary Care Unavaila ble SPASIC, TASHA RO Primary Care Unavaila ble SPASITASHA Best Primary Care Unavaila ble ARNLISBETH LYNNE Attending Unavailable SPASIC, TASHA RO Primary Care Unavaila ble LISBETH LOUIS Attending Unavailable SPASIC, TASHA RO Primary Care Unavaila ELIAS Carvajal Attending Unavailabl [...] Unavailable Spasic Tasha RUSH Primary Care Provider [phone] SPASIC, TASHA Attending Unavailable SPASIC, TASHA Referring [...] Attending Unavailable SPASIC, TASHA Primary Care Unavailable KALAPODIS, ANTOINE Attending Unavailable PRICE, MARYLIN Attending Unavailable [...] Referring Unavailable SPASIC, TASHA Primary Care Unavailable [facility], Services Primary Care Provider Spasic, CLINICAL SUPERVISOR-C Tasha E Attending Provider Spasic, CLINICAL SUPERVISOR-C Tasha E Attending Provider Spasic, Tasha E Attending Unavailable Spasic, Tasha E Admitting Unavailable Spasic, CLINICAL SUPERVISOR-C Tasha E Attending Provider Spasic, CLINICAL SUPERVISOR-C Tasha E Attending Provider SPASIC, TASHA E Primary Care Physician Zhanna Wheeler I Unavailable MEDINA Hall Attending Unavaila MEDINA Roy Admitting Unavaila MEDINA Roy Attending Unavaila MEDINA Roy Admitting Unavaila ble Janine, CLINICAL SUPERVISOR-C Tasha Fry Attending Provider [phone] NON STAFF Primary Care Provider Unavailabl e [facility] Primary Care Provider MD Jim Mcknight Attending Provider Jim Mcknight Admitting Unavailab Jim Jean Attending Unavailab le [facility] Primary Care Unavaila ble Spasic, Tasha E Attending Unavailable Spasic, Tasha E Admitting Unavailable Spasic, Tasha E Attending Unavailable Spasic, Tasha E Admitting Unavailable NON STAFF Primary Care Unavailable Spasic, Tasha E Attending Unavailable Spasic, Tasha E Admitting Unavailable Spasic, Tasha E Admitting Unavailable Spasic, Tasha E Attending Unavailable Spasic, Tasha E Admitting Unavailable [facility] Primary Care Unavaila ble Spasic, Tasha E Attending Unavailable CHELLY MO Attending Unavailable CHELLY MO Attending Unavailable CHELLY MO Attending Unavailable Allergies Allergy Classification Reported Allergen(s) Allergy Type Date of Onset Reaction(s) Facility (20 sources) coconut allergenic extract; Translations: [COCONUT OIL] Drug Allergy 0 [facility] (11 sources) Buprenorphine / Naloxone; Translations: [BUPRENORPHINE-NAL OXONE] Drug Allergy 2 GI Intolerance, Dyspepsia [facility] (3 sources) Coconut Oil Drug Allergy 0 [facility] Medications Current Medications Medication Drug Class(es) Dates [...] mg/ml / menthol 5 mg/ml topical spray (4 sources) Standardized Chemical Allergen Start: 03-23-2019 Benzocaine-Menth [...] oral solution (1 source) alpha-Adrenergic Agonist, Uncompetitive B-imesaj-Z-aspartate Receptor Antagonist, Sigma-1 Agonist Start: 02-21-2021 End: [...] 08/10/2021 Active cephalexin 500 mg oral capsule (9 sources) Cephalosporin Antibacterial Start: 01-05-2021 End: 01-15-2021 [...] Active ferrous sulfate 325 mg oral tablet (8 sources) Start: 03-23-2019 take 325 mg by [...] 0 Start Date: 05/18/14 Status: Ordered Lanolin (4 sources) Start: 03-23-2019 Lanolin (Masood-O -Soothe) Cream [...] tongue 30 tablet 0 10/11/2021 Active Pnv,Calcium 53-Cwsl-Sybcp Acid (4 sources) Start: 03-22-2019 take 1 tablet by mouth once daily Pnv,Calcium 84-Tihy-Mncrl Acid Active 1 TAB PO Daily March 22, 2019 12:00am sertraline 50 mg oral tablet (20 sources) Serotonin Reuptake Inhibitor Start: 12-09-2020 take 1 tablet by mouth once daily sertraline (ZOLOFT) 50 MG tablet Take 50 mg by mouth daily . 0 12/09/2020 Active Start: 04-30-2020 take 3 tablets by [facility] once daily sertraline 25 MG tablet Take 75 mg by mouth daily. 0 04/30/2020 Active Start: 04-30-2020 sertraline 25 MG tablet sulfamethoxazole 800 mg / trimethoprim 160 mg oral tablet (8 sources) Dihydrofolate Reductase Inhibitor Antibacterial, Sulfonamide Antimicrobial [...] 1:02am witch aguilar 500 mg/ml medicated pad (4 sources) Start: 03-23-2019 Glycerin-Witch Aguilar (A.E.R. Witch Aguilar) 12.5-50 % Pads, Medicated Active 1 PAD TOPICAL PRN March 23, 2019 12:00am Completed/Discontinued Medications Medication Drug Class(es) Dates Sig (Normalized) Sig (Original) acetaminophen 325 mg / HYDROcodone bitartrate 5 mg oral tablet (5 sources) Opioid Agonist Start: 12-26-2019 End: 12-26-2019 hydroCODone-acetam inophen (NORCO) 5-325 MG per tablet 1 tablet Start: 03-24-2018 End: 05-25-2018 Hydrocodone-Acetaminophen (N orco) 5-325 mg tablet Discontinued 1 TAB PO every 6 to 8 hours 02 21March 24, 2018 May 25, 2018 8:07am bacitracin 0.5 unt/mg topica l ointment (1 source) Start: 05-12-2020 End: 05-12-2020 bacitracin ointment 1 Application Start: 05-12-2020 End: 05-12-2020 bacitracin ointment 1 Applic ation bacitracin 0.5 unt/mg / neomycin 0.0035 mg/mg / polymyxin b 10 unt/mg topical ointment (1 source) Aminoglycoside Antibacterial, Polymyxin-class Antibacterial Start: 12-26-2019 End: 12-26-2019 funvejxk-kgtgjqnzvg-vlcmbixx n (NEOSPORIN) 400-5-5000 ointment benzocaine 140 mg/ml [...] 12-26-2019 bupivacaine-epinep hrine (MARCAINE;SENSORCA INE W/EPI) 0.25% -1:450439 injection calcium carbonate 1250 mg / cholecalciferol [...] Anesthetic Start: 08-14-2019 End: 08-14-2019 lidocaine-epineph rine 1%-1:265447 injection 20 mL Start: 08-14-2019 End: 08-14-2019 lidocaine-epinephrine 1%-1:1 35032 injection 20 mL ethinyl estradiol 0.02 mg [...] succinate 50 mg extended release oral tablet (4 sources) beta-Adrenergic Lulú Start: 03-24-2018 End: 05-03-2018 [...] Test Name Value Interpretation Reference Range Facility Thyroid Profile IIon 024 Free Thyroxine Index 2.6 Normal 1.2-4.9 [facility] Comment on above: Order Comment: Shukri n for Exam Postoperative hypothyroidism Performed By: #### T HYROID PROF II #### [facility] , Lab [facility] Triiodothyronine,(T3) 121 ng/dL Normal 71-180 [facility] Comment on above: Order Comment: Shukri n for Exam Postoperative hypothyroidism Result Comment: Perf ormed at: - [facility] [address] [id number] [place] Machinist: Hank Leung PhD, Phone: [phone] Performed By: #### T HYROID PROF II #### [facility] , T4 [Mass/Vol] 13.0 ug/dL High 4.5-12.0 [facility] Comment on above: Order Comment: Reaso n for Exam Postoperative hypothyroidism Performed By: #### T HYROID PROF II #### [facility] , Triiodothryronine (T3) Uptake 20 % Low 24-39 [facility] Comment on above: Order Comment: Reaso n for Exam Postoperative hypothyroidism Performed By: #### T HYROID PROF II #### [facility] , TSH Qn 12.100 m[IU]/L High 0.450-4.500 [facility] Comment on above: Order Comment: Reaso n for Exam Postoperative hypothyroidism Result Comment: PERF ORMED BY: [facility] [address] [place] [address] PATHOLOGIST RISK MANAGER RONEL ROJO M.D. Performed By: #### T HYROID PROF II #### [facility] , C Urineon 11-16-2023 Bacteria identified Cx Nom (U) Microbiology PROCEDURE: Urine Culture [R1] SOURCE: U CleanCatch BODY SITE: COLLECTED DATE/TIME: 11/14/2023 16:50 EDT RECEIVED DATE/TIME: 11/14/2023 17:24 EDT START DATE/TIME: 11/14/2023 17:25 EDT FREE TEXT SOURCE: Chelly DOWNING Stephanie FINAL REPORTS Final Report [] Verified Date/Time: 11/16/2023 11:13 EDT 3,000 cfu/ml Mixed skin contaminants Performing Locations R1: [facility] performed [facility], [address] [place] [address], [id number] , [place], Normal [facility] Comment on above: Performed By: #### 2 [id number] #### [facility] [address] [place] [address] HIV Screen 4th Generation wR fxon 11-16-2023 HIV 1+2 Ab+HIV1 p24 Ag IA Ql Non-Reactive Invalid Interpretation Code Non Reactive [facility] Comment on above: Result Comment: HIV Negative HIV-1/HIV-2 antibodies and HIV-1 p24 antigen were NOT detected. There is no laboratory evidence of HIV infection. Performed at: [address] [id number] PhD Madhu Hank Performed By: #### 9 [id number] #### [facility] [address] [place] [address] ABO/Rhon 11-14-2023 ABO/Rh AB POS Invalid Interpretation Code [facility] Comment on above: Performed By: #### 2 [id number] #### [facility] [address] [place] [address] ABSCon 11-14-2023 ABSC Gel Interp Negative Normal [facility] Comment on above: Performed By: #### 1 [id number] #### [facility] [address] [place] [address] BLOOD BANKOrdered By: Tremaine Encarnacion on 11-14-2023 ABO/Rh Interp AB POS Invalid Interpretation Code [facility] BB Subsection ABSC Gel Interp Negative (11/14/23 4:56 PM) Normal [facility] BB Subsection CBC w/ Auto Diffon 4 Basophils/100 WBC (Bld) 0.3 % Normal 0.0-2.0 [facility] Comment on above: Performed By: #### 2 [id number] #### [facility] [address] [place] [address] Basophils/Leukocytes Auto (Bld) [Pure # fraction] 0.0 E9/L Normal 0.0-0.2 [facility] Comment on above: Performed By: #### 2 [id number] #### [facility] [address] [place] [address] Eosinophils (Bld) [#/Vol] 0.0 E9/L Normal 0.0-0.5 [facility] Comment on above: Performed By: #### 2 [id number] #### [facility] [address] [place] [address] Eosinophils/100 WBC (Bld) 0.7 % Normal 0.0-8.0 [facility] Comment on above: Performed By: #### 2 [id number] #### [facility] [address] [place] [address] Erythrocyte distribution width (RBC) [Ratio] 13.2 % Normal 10.9-14.2 [facility] Comment on above: Performed By: #### 2 [id number] #### [facility] [address] [place] [address] Hematocrit (Bld) [Volume fraction] 40.4 % Normal 34.0-46.0 [facility] Comment on above: Performed By: #### 2 [id number] #### [facility] [address] [place] [address] Hemoglobin (Bld) [Mass/Vol] 13.8 g/dL Normal 12.0-16.0 [facility] Comment on above: Performed By: #### 2 [id number] #### [facility] [address] [place] [address] Lymphocytes (Bld) [#/Vol] 2.2 E9/L Normal 1.0-4.0 [facility] Comment on above: Performed By: #### 2 [id number] #### [facility] [address] [place] [address] Lymphocytes/100 WBC (Bld) 36.4 % Normal 14.0-50.0 [facility] Comment on above: Performed By: #### 2 [id number] #### [facility] [address] [place] [address] MCH (RBC) [Entitic mass] 30.2 pg Normal 27.0-34.0 [facility] Comment on above: Performed By: #### 2 [id number] #### [facility] [address] [place] [address] MCHC (RBC) [Mass/Vol] 34.3 g/dL Normal 31.4-36.0 [facility] Comment on above: Performed By: #### 2 [id number] #### [facility] [address] [place] [address] MCV (RBC) [Entitic vol] 88.1 fL Normal 80.0-100.0 [facility] Comment on above: Performed By: #### 2 [id number] #### [facility] [address] [place] [address] Monocytes (Bld) [#/Vol] 0.5 E9/L Normal 0.2-1.0 [facility] Comment on above: Performed By: #### 2 [id number] #### [facility] [address] [place] [address] Neutrophils (Bld) [#/Vol] 3.3 E9/L Normal 2.0-7.5 [facility] Comment on above: Performed By: #### 2 [id number] #### [facility] [address] [place] [address] Neutrophils/100 WBC (Bld) 54.9 % Normal 36.0-75.0 [facility] Comment on above: Performed By: #### 2 [id number] #### [facility] [address] [place] [address] Platelet mean volume (Bld) [Entitic vol] 7.4 fL Normal 6.4-10.8 [facility] Comment on above: Performed By: #### 2 [id number] #### [facility] [address] [place] [address] Platelets (Bld) [#/Vol] 233.0 E9/L Normal 150.0-500.0 [facility] Comment on above: Performed By: #### 2 [id number] #### [facility] [address] [place] [address] RBC (Bld) [#/Vol] 4.6 E12/L Normal 4.3-5.9 [facility] Comment on above: Performed By: #### 2 [id number] #### [facility] [address] [place] [address] WBC corrected for nucl RBC Auto (Bld) [#/Vol] 6.0 E9/L Normal 4.0-11.0 [facility] Comment on above: Performed By: #### 2 [id number] #### [facility] [address] [place] [address] CHEMISTRYOrdered By: SYSTEM SYSTEM on 11-14-2023 Free [...] Critical result called to Chelly Mo by [facility] on 11/14/23 at 1804 Result verified [...] Treatmenton 10-22 Consent for Treatment [id number] #1.00TIFF Normal [facility] Free T4on 11-14-2023 Free T4 [Mass/Vol] 1.14 ng/dL Normal 0.58-1.64 [facility] Comment on above: Performed By: #### 2 [id number] #### [facility] [address] [place] [address] HEMATOLOGYOrdered By: SYSTEM SYSTEM on 11-14-2023 Basophils/100 [...] Remisol Heme Physician Orderon 11-14-2023 Physician Order [id number] #1.00TIFF Normal [facility] TSHon 11-14-2023 TSH Qn 1.06 m[IU]/L Normal 0.34-5.60 [facility] Comment on above: Performed By: #### 2 [id number] #### [facility] [address] [place] [address] U Drug Screenon 11-14-2023 Amphetamines Screen method >1000 ng/mL Ql (U) Negative Normal NEGATIVE [facility] Comment on above: Result Comment: Nega tive Cutoff: <1000 ng/mL Performed By: #### 2 [id number] #### [facility] [address] [place] [address] Barbiturates Screen Ql (U) Negative Normal NEGATIVE [facility] Comment on above: Result Comment: Nega tive Cutoff: <200 ng/mL Performed By: #### 2 [id number] #### [facility] [address] [place] [address] Benzodiazepines Ql (U) Negative Normal NEGATIVE [facility] Comment on above: Result Comment: Nega tive Cutoff: <200 ng/mL Performed By: #### 2 [id number] #### [facility] [address] [place] [address] Cannabinoids Screen Ql (U) Positive Abnormal NEGATIVE [facility] Comment on above: Result Comment: Crit ical Result Verified by Repeat Analysis No Confirmation Requested by Physician Critical result called to Chelly Mo by [facility] on 11/14/23 at 1804 Result verified by repeat analysis, Unconfirmed by alternate method Negative Cutoff: <50 ng/mL Performed By: #### 2 [id number] #### [facility] [address] [place] [address] Cocaine Ql (U) Negative Normal NEGATIVE [facility] Comment on above: Result Comment: Nega tive Cutoff: <300 ng/mL Performed By: #### 2 [id number] #### [facility] [address] [place] [address] Opiates Screen Ql (U) Negative Normal NEGATIVE [facility] Comment on above: Result Comment: Nega tive Cutoff: <300 ng/mL Performed By: #### 2 [id number] #### [facility] [address] [place] [address] Phencyclidine Screen method >25 ng/mL Ql (U) Negative Normal NEGATIVE [facility] Comment on above: Result Comment: Nega tive Cutoff: <25 ng/mL These drug screen results are to be used for medical (i.e., treatment) purposes only. Unconfirmed drug screening results must not be used for non-medical purposes (e.g., employment testing, legal testing). Performed By: #### 2 [id number] #### [facility] [address] [place] [address] U Fentanyl Negative Normal NEGATIVE [facility] Comment on above: Result Comment: Nega tive Cutoff: <5 ng/mL These drug screen results are to be used for medical (i.e., treatment) purposes only. Unconfirmed drug screening results must not be used for non-medical purposes (e.g., employment testing, legal testing). Performed By: #### 2 [id number] #### [facility] [address] [place] [address] Alanine aminotransferase [En zymatic activity/volume] in Serum or PlasmaOrdered By: Tasha Mehta on 10-27-2023 ALT [Catalytic activity/Vol] 16 U/L Normal 7-52 [facility] Comment on above: Order Comment: Reaso n for Exam Postoperative hypothyroidism Reason for Exam Vitamin D deficiency Performed By: #### V [id number], CBC, TSH3 wRFLX, CMP #### [facility] [address] [id number] [place] Albumin [Mass/volume] in Ser um or Plasma by Bromocresol green (BCG) dye binding methoOrdered By: Tasha Mehta on 10-27-2023 Albumin BCG dye [Mass/Vol] 4.7 g/dL 3.5-5.7 [facility] Alkaline phosphatase [Enzyma tic activity/volume] in Serum or PlasmaOrdered By: Tasha Mehta on 10-27-2023 ALP [Catalytic activity/Vol] 57 U/L Normal 34-104 [facility] Comment on above: Order Comment: Reaso n for Exam Postoperative hypothyroidism Reason for Exam Vitamin D deficiency Performed By: #### V [id number], CBC, TSH3 wRFLX, CMP #### [facility] [address] [place] [address] [place] Aspartate aminotransferase [ Enzymatic activity/volume] in Serum or PlasmaOrdered By: Tasha Mehta on 10-27-2023 AST [Catalytic activity/Vol] 17 U/L Normal 13-39 [facility] Comment on above: Order Comment: Reaso n for Exam Postoperative hypothyroidism Reason for Exam Vitamin D deficiency Performed By: #### V [id number], CBC, TSH3 wRFLX, CMP #### [facility] [address] Automated basophil %Ordered By: Tasha Mehta on 10-27-2023 Basophils/100 WBC (Bld) 0.3 % Normal . [facility] Comment on above: Order Comment: Reaso n for Exam Less than 8 weeks gestation of Performed By: #### C MP, CBC, T4F, HCGQNT, TSH3 wRFLX #### [facility] [address] [place] [address] Automated basophil countOrde red By: Tasha Mehta on 10-27-2023 Basophils (Bld) [#/Vol] 0.0 10*3/uL Normal 0.0-0.2 [facility] Comment on above: Order Comment: Reaso n for Exam Less than 8 weeks gestation of Result Comment: PERF ORMED BY: [place] [address] PATHOLOGIST RISK MANAGER RONEL ROJO M.D. Performed By: #### C MP, CBC, T4F, HCGQNT, TSH3 wRFLX #### [facility] [address] [place] [address] Automated blood monocyte cou ntOrdered By: Tasha Mehta on 10-27-2023 Monocytes (Bld) [#/Vol] 0.6 10*3/uL Normal 0.0-0.8 [facility] Comment on above: Order Comment: Reaso n for Exam Less than 8 weeks gestation of Performed By: #### C MP, CBC, T4F, HCGQNT, TSH3 wRFLX #### [facility] [address] [place] [address] Automated eosinophil %Ordere d By: Tasha Mehta on 10-27-2023 Eosinophils/100 WBC (Bld) 0.8 % Normal . [facility] Comment on above: Order Comment: Reaso n for Exam Less than 8 weeks gestation of Performed By: #### C MP, CBC, T4F, HCGQNT, TSH3 wRFLX #### [facility] [address] Automated eosinophil countOr dered By: Tasha Mehta on 10-27-2023 Eosinophils (Bld) [#/Vol] 0.1 10*3/uL Normal 0.0-0.45 [facility] Comment on above: Order Comment: Reaso n for Exam Less than 8 weeks gestation of Performed By: #### C MP, CBC, T4F, HCGQNT, TSH3 wRFLX #### [facility] [address] [id number] [facility] Automated monocyte %Ordered By: Tasha Mehta on 10-27-2023 Monocytes/100 WBC (Bld) 8.7 % Normal . [facility] Comment on above: Order Comment: Reaso n for Exam Less than 8 weeks gestation of Performed By: #### C MP, CBC, T4F, HCGQNT, TSH3 wRFLX #### [facility] [address] [id number] [facility] Automated neutrophil %Ordere d By: Tasha Mehta on 10-27-2023 Neutrophils/100 WBC (Bld) 53.4 % Normal . [facility] Comment on above: Order Comment: Reaso n for Exam Less than 8 weeks gestation of Performed By: #### C MP, CBC, T4F, HCGQNT, TSH3 wRFLX #### [facility] [address] [id number] [place] Bilirubin.total [Mass/volume ] in Serum or PlasmaOrdered By: Tasha Mehta on 10-27-2023 Bilirubin [Mass/Vol] 0.7 mg/dL Normal 0.3-1.0 [facility] Comment on above: Order Comment: Reaso n for Exam Postoperative hypothyroidism Reason for Exam Vitamin D deficiency Performed By: #### V [id number], CBC, TSH3 wRFLX, CMP #### [facility] [address] [place] [address] [place] Calcium [Mass/volume] in Ser um or PlasmaOrdered By: Tasha Mehta on 10-27-2023 Calcium [Mass/Vol] 9.6 mg/dL Normal 8.6-10.3 [facility] Comment on above: Order Comment: Reaso n for Exam Postoperative hypothyroidism Reason for Exam Vitamin D deficiency Performed By: #### V [id number], CBC, TSH3 wRFLX, CMP #### [facility] [address] [id number] [facility] Carbon dioxide, total [Moles /volume] in Serum or PlasmaOrdered By: Tasha Mehta on 10-27-2023 CO2 [Moles/Vol] 23.0 mmol/L Normal 21.0-31.0 [facility] Comment on above: Order Comment: Reaso n for Exam Postoperative hypothyroidism Reason for Exam Vitamin D deficiency Performed By: #### V [id number], CBC, TSH3 wRFLX, CMP #### [facility] [address] [place] [address] [place] Chloride [Moles/volume] in S yany or PlasmaOrdered By: Tasha Mehta on 10-27-2023 Chloride [Moles/Vol] 105 mmol/L Normal 98-107 [facility] Comment on above: Order Comment: Reaso n for Exam Postoperative hypothyroidism Reason for Exam Vitamin D deficiency Performed By: #### V [id number], CBC, TSH3 wRFLX, CMP #### [facility] [address] Choriogonadotropin.beta subu nit [Units/volume] in Serum or PlasmaOrdered By: Tasha Mehta on 10-27-2023 HCG.beta subunit Qn 6943.00 m[IU]/mL [facility] Comment on above: Approximate Approxim ate hCG Gestational Age Range (mIU/ml) (weeks)0.2-1 5-50 1-2 50-500 2-3 100-5,000 3-4 500-10,000 4-5 1,000-50,000 5-6 10,000-100,000 6-8 15,000-200,000 8-12 10,000-100,000 Complete Blood Count Auto Di ffon 10-27-2023 Mean Corpuscular HGB Conc 34.1 g/dL Normal 32.0-35.0 [facility] Comment on above: Order Comment: Reaso n for Exam Less than 8 weeks gestation of Performed By: #### C MP, CBC, T4F, HCGQNT, TSH3 wRFLX #### [facility] [address] NRBC% 0.1 /100{WBC} Normal 0-0.5 [facility] Comment on above: Order Comment: Reaso n for Exam Less than 8 weeks gestation of Performed By: #### C MP, CBC, T4F, HCGQNT, TSH3 wRFLX #### [facility] [address] Comprehensive Metabolic Pane felicia 10-27-2023 Albumin [Mass/Vol] 4.7 g/dL Normal 3.5-5.7 [facility] Comment on above: Order Comment: Reaso n for Exam Postoperative hypothyroidism Reason for Exam Vitamin D deficiency Performed By: #### V [id number], CBC, TSH3 wRFLX, CMP #### [address] GFR/1.73 sq M.predicted MDRD (S/P/Bld) [Vol rate/Area] mL/min/{1.73_m2} Normal [facility] Comment on above: Order Comment: Reaso n for Exam Postoperative hypothyroidism Reason for Exam Vitamin D deficiency Performed By: #### V [id number], CBC, TSH3 wRFLX, CMP #### [facility] [address] [place] [address] Creatinine [Mass/volume] in Serum or PlasmaOrdered By: Tasha Mehta on 10-27-2023 Creatinine [Mass/Vol] 0.70 mg/dL Normal 0.60-1.20 [facility] Comment on above: Order Comment: Reaso n for Exam Postoperative hypothyroidism Reason for Exam Vitamin D deficiency Performed By: #### V [id number], CBC, TSH3 wRFLX, CMP #### [facility] [address] [place], [place] [id number] [facility] Erythrocyte distribution wid th [Ratio] by Automated countOrdered By: Tasha Mehta on 10-27-2023 Erythrocyte distribution width (RBC) [Ratio] 12.8 % Normal 11.9-15.3 [facility] Comment on above: Order Comment: Reaso n for Exam Less than 8 weeks gestation of Performed By: #### C MP, CBC, T4F, HCGQNT, TSH3 wRFLX #### [facility] [address] [place] [address] [facility] Erythrocytes [#/volume] in B lood by Automated countOrdered By: Tasha Mehta on 10-27-2023 RBC (Bld) [#/Vol] 4.64 10*6/uL Normal 3.60-5.00 [facility] Comment on above: Order Comment: Reaso n for Exam Less than 8 weeks gestation of Performed By: #### C MP, CBC, T4F, HCGQNT, TSH3 wRFLX #### [facility] [address] [place] [id number] [facility] Glucose [Mass/volume] in Ser um or PlasmaOrdered By: Tasha Mehta on 10-27-2023 Glucose [Mass/Vol] 82 mg/dL Normal 70-100 [facility] Comment on above: ADA recommended refe rence rangeRandom Glucose Reference Range is dependent on time and content of last meal. Glucose of more than 200 mg/dL in a nonstressed, ambulatory subject supports the diagnosis of Diabetes Mellitus. Order Comment: Reaso n for Exam Postoperative hypothyroidism Reason for Exam Vitamin D deficiency Result Comment: [place] om Glucose Reference Range is dependent on time and content of last meal. Glucose of more than 200 mg/dL in a nonstressed, ambulatory subject supports the diagnosis of Diabetes Mellitus. ADA recommended reference range Performed By: #### V [id number], CBC, TSH3 wRFLX, CMP #### [facility] [address] [place] [address] [place] HCG,Quantitativeon 4 HCG,Quantitative 6943.00 m[iU]/mL Normal [facility] Comment on above: Order Comment: Reaso n for Exam Postoperative hypothyroidism Reason for Exam Vitamin D deficiency Result Comment: Appr oximate Approximate hCG Gestational Age Range (mIU/ml) (weeks) 0.2-1 5-50 1-2 50-500 2-3 100-5,000 3-4 500-10,000 4-5 1,000-50,000 5-6 10,000-100,000 6-8 15,000-200,000 8-12 10,000-100,000 PERFORMED BY: [place] [address] PATHOLOGIST RISK MANAGER RONEL ROJO M.D. Performed By: #### V [id number], CBC, TSH3 wRFLX, CMP #### [facility] [address] [place] [address] Hematocrit [Volume Fraction] of Blood by Automated countOrdered By: Tasha Mehta on 10-27-2023 Hematocrit (Bld) [Volume fraction] 41.1 % Normal 34.0-46.4 [facility] Comment on above: Order Comment: Reaso n for Exam Less than 8 weeks gestation of Performed By: #### C MP, CBC, T4F, HCGQNT, TSH3 wRFLX #### [facility] [address] [place] [address] Hemoglobin [Mass/volume] in BloodOrdered By: Tasha Mehta on 10-27-2023 Hemoglobin (Bld) [Mass/Vol] 14.0 g/dL Normal 11.8-15.4 [facility] Comment on above: Order Comment: Reaso n for Exam Less than 8 weeks gestation of Performed By: #### C MP, CBC, T4F, HCGQNT, TSH3 wRFLX #### [facility] [address] [place] [address] Leukocytes [#/volume] correc eli for nucleated erythrocytes in Blood by Automated counOrdered By: Tasha Mehta on 10-27-2023 WBC corrected for nucl RBC Auto (Bld) [#/Vol] 6.5 10*3/uL 3.8-11.6 [facility] Leukocytes [#/volume] in Blo od by Automated countOrdered By: Tasha Mehta on 10-27-2023 WBC (Bld) [#/Vol] 6.5 10*3/uL Normal 3.8-11.6 [facility] Comment on above: Order Comment: Reaso n for Exam Less than 8 weeks gestation of Performed By: #### C MP, CBC, T4F, HCGQNT, TSH3 wRFLX #### [facility] [address] [place] [address] Lymphocytes [#/volume] in Bl ood by Automated countOrdered By: Tasha Mehta on 10-27-2023 Lymphocytes (Bld) [#/Vol] 2.4 10*3/uL Normal 1.00-4.8 [facility] Comment on above: Order Comment: Reaso n for Exam Less than 8 weeks gestation of Performed By: #### C MP, CBC, T4F, HCGQNT, TSH3 wRFLX #### [facility] [address] [place] [address] Lymphocytes/100 leukocytes i n Blood by Automated countOrdered By: Tasha Mehta on 10-27-2023 Lymphocytes/100 WBC (Bld) 36.8 % Normal . [facility] Comment on above: Order Comment: Reaso n for Exam Less than 8 weeks gestation of Performed By: #### C MP, CBC, T4F, HCGQNT, TSH3 wRFLX #### [facility] [address] [place] [address] MCH [Entitic mass] by Automa eli countOrdered By: Tasha Mehta on 10-27-2023 MCH (RBC) [Entitic mass] 30.2 pg Normal 24.7-34.3 [facility] Comment on above: Order Comment: Reaso n for Exam Less than 8 weeks gestation of Performed By: #### C MP, CBC, T4F, HCGQNT, TSH3 wRFLX #### [facility] [address] [place] [address] MCHC Auto (RBC) [Mass/Vol]Or dered By: Tasha Mehta on 10-27-2023 MCHC (RBC) [Mass/Vol] 34.1 g/dL 32.0-35.0 [facility] MCV [Entitic volume] by Auto mated countOrdered By: Tasha Mehta on 10-27-2023 MCV (RBC) [Entitic vol] 88.6 fL Normal 80-100 [facility] Comment on above: Order Comment: Reaso n for Exam Less than 8 weeks gestation of Performed By: #### C MP, CBC, T4F, HCGQNT, TSH3 wRFLX #### [facility] [address] Neutrophils [#/volume] in Bl ood by Automated countOrdered By: Tasha Mehta on 10-27-2023 Neutrophils (Bld) [#/Vol] 3.5 10*3/uL Normal 1.8-7.7 [facility] Comment on above: Order Comment: Reaso n for Exam Less than 8 weeks gestation of Performed By: #### C MP, CBC, T4F, HCGQNT, TSH3 wRFLX #### [facility] [address] [place] [address] No Panel InformationOrdered By: Tasha Mehta on 10-27-2023 Estimated GFR (CKD-EPI) > 60.0 mL/Min [facility] Creatinine Clearance (Chem N/A [facility] Nucleated erythrocytes [Pres ence] in Blood by Automated countOrdered By: Tasha Mehta on 10-27-2023 Nucleated RBC Auto Ql (Bld) 0.1 /100{WBC} 0-0.5 [facility] Platelet mean volume [Entiti c volume] in Blood by Automated countOrdered By: Tasha Mehta on 10-27-2023 Platelet mean volume (Bld) [Entitic vol] 8.0 fL Normal 6.3-10.7 [facility] Comment on above: Order Comment: Reaso n for Exam Less than 8 weeks gestation of Performed By: #### C MP, CBC, T4F, HCGQNT, TSH3 wRFLX #### [facility] [address] [place] [address] [place] Platelets [#/volume] in Bloo d by Automated countOrdered By: Tasha Mehta on 10-27-2023 Platelets (Bld) [#/Vol] 226 10*3/uL Normal 150-450 [facility] Comment on above: Order Comment: Reaso n for Exam Less than 8 weeks gestation of Performed By: #### C MP, CBC, T4F, HCGQNT, TSH3 wRFLX #### [facility] [address] Potassium [Moles/volume] in Serum or PlasmaOrdered By: Tasha Mehta on 10-27-2023 Potassium [Moles/Vol] 4.1 mmol/L Normal 3.5-5.1 [facility] Comment on above: Order Comment: Reaso n for Exam Postoperative hypothyroidism Reason for Exam Vitamin D deficiency Performed By: #### V [id number], CBC, TSH3 wRFLX, CMP #### [facility] [address] Protein [Mass/volume] in Ser um or PlasmaOrdered By: Tasha Mehta on 10-27-2023 Protein [Mass/Vol] 7.4 g/dL Normal 6.4-8.9 [facility] Comment on above: Order Comment: Reaso n for Exam Postoperative hypothyroidism Reason for Exam Vitamin D deficiency Performed By: #### V [id number], CBC, TSH3 wRFLX, CMP #### [facility] [address] [place] [address] Serum globulin measurement b y calculation (mass/volume)Ordered By: Tasha Mehta on 10-27-2023 Globulin (S) [Mass/Vol] 2.7 g/dL Normal [facility] Comment on above: Order Comment: Reaso n for Exam Postoperative hypothyroidism Reason for Exam Vitamin D deficiency Performed By: #### V [id number], CBC, TSH3 wRFLX, CMP #### [facility] [address] Serum or plasma albumin/glob ulin mass ratioOrdered By: Tasha Mehta on 10-27-2023 Albumin/Globulin [Mass ratio] 1.7 {ratio} Normal [facility] Comment on above: Order Comment: Reaso n for Exam Postoperative hypothyroidism Reason for Exam Vitamin D deficiency Performed By: #### V [id number], CBC, TSH3 wRFLX, CMP #### [facility] [address] Serum or plasma anion gap de terminationOrdered By: Tasha Mehta on 10-27-2023 Anion gap [Moles/Vol] 11.1 mmol/L Normal 6.0-15.0 [facility] Comment on above: Order Comment: Reaso n for Exam Postoperative hypothyroidism Reason for Exam Vitamin D deficiency Performed By: #### V [id number], CBC, TSH3 wRFLX, CMP #### [facility] [address] [place] [address] [place] Sodium [Moles/volume] in Ser um or PlasmaOrdered By: Tasha Mehta on 10-27-2023 Sodium [Moles/Vol] 135 mmol/L Low 136-145 [facility] Comment on above: Order Comment: Reaso n for Exam Postoperative hypothyroidism Reason for Exam Vitamin D deficiency Performed By: #### V [id number], CBC, TSH3 wRFLX, CMP #### [facility] [address] [place] [address] Thyroid Stim Hormone w/Rflxo n 10-27-2023 Thyroid Stim Hormone w/Rflx 0.22 u[iU]/mL Low 0.45-5.33 [facility] Comment on above: Order Comment: Reaso n for Exam Postoperative hypothyroidism Reason for Exam Vitamin D deficiency Performed By: #### V [id number], CBC, TSH3 wRFLX, CMP #### [facility] [address] [place] [address] Thyrotropin [Units/volume] i n Serum or PlasmaOrdered By: Tasha Mehta on 10-27-2023 TSH Qn 0.22 m[IU]/L Low 0.45-5.33 [facility] Thyroxine (T4) free [Mass/vo lume] in Serum or PlasmaOrdered By: Tasha Mehta on 10-27-2023 Free T4 [Mass/Vol] 1.36 ng/dL High 0.61-1.12 [facility] Comment on above: Order Comment: Reaso n for Exam Postoperative hypothyroidism Reason for Exam Vitamin D deficiency Performed By: #### V [id number], CBC, TSH3 wRFLX, CMP #### [facility] [address] Urea nitrogen [Mass/volume] in Serum or PlasmaOrdered By: Tasha Mehta on 10-27-2023 Urea nitrogen [Mass/Vol] 17 mg/dL Normal 7-25 [facility] Comment on above: Order Comment: Reaso n for Exam Postoperative hypothyroidism Reason for Exam Vitamin D deficiency Performed By: #### V [id number], CBC, TSH3 wRFLX, CMP #### [facility] [address] Choriogonadotropin.beta subu nit [Units/volume] in Serum or PlasmaOrdered By: Tasha Mehta on 09-01-2023 HCG.beta subunit Qn Negative [facility] HCG,Qualitative Rfx to Quant on 09-01-2023 HCG,Qualitative Rfx to Quant Negative Normal [facility] Comment on above: Order Comment: Reaso n for Exam Postoperative hypothyroidism Reason for Exam Irregular menses Result Comment: PERF ORMED BY: [place] [address] PATHOLOGIST RISK MANAGER RONEL ROJO M.D. Performed By: #### T 4F, HCG QUAL RFX, TSH3 wRFLX #### [facility] [address] [place] [address] Thyroid Stim Hormone w/Rflxo n 09-01-2023 Thyroid Stim Hormone w/Rflx 12.13 u[iU]/mL High 0.45-5.33 [facility] Comment on above: Order Comment: Reaso n for Exam Postoperative hypothyroidism Reason for Exam Irregular menses Performed By: #### T 4F, HCG QUAL RFX, TSH3 wRFLX #### [facility] [address] [place] [address] [place] Thyrotropin [Units/volume] i n Serum or PlasmaOrdered By: Tasha Mehta on 09-01-2023 TSH Qn 12.13 m[IU]/L 0.45-5.33 [facility] Thyroxine (T4) free [Mass/vo lume] in Serum or PlasmaOrdered By: Tasha Mehta on 09-01-2023 Free T4 [Mass/Vol] 1.02 ng/dL Normal 0.61-1.12 [facility] Comment on above: Order Comment: Reaso n for Exam Postoperative hypothyroidism Reason for Exam Irregular menses Performed By: #### T 4F, HCG QUAL RFX, TSH3 wRFLX #### [facility] [address] Alanine aminotransferase [En zymatic activity/volume] in Serum or PlasmaOrdered By: Tasha Mehta on 06-09-2023 ALT [Catalytic activity/Vol] 11 U/L 7-52 [facility] Albumin [Mass/volume] in Ser um or Plasma by Bromocresol green (BCG) dye binding methoOrdered By: Tasha Mehta on 06-09-2023 Albumin BCG dye [Mass/Vol] 5.0 g/dL 3.5-5.7 [facility] Alkaline phosphatase [Enzyma tic activity/volume] in Serum or PlasmaOrdered By: Tasha Mehta on 06-09-2023 ALP [Catalytic activity/Vol] 60 U/L 34-104 [facility] Aspartate aminotransferase [ Enzymatic activity/volume] in Serum or PlasmaOrdered By: Tasha Mehta on 06-09-2023 AST [Catalytic activity/Vol] 14 U/L 13-39 [facility] Basophils Auto (Bld) [#/Vol] Ordered By: Tasha Mehta on 06-09-2023 Basophils (Bld) [#/Vol] 0.0 10*3/uL 0.0-0.2 [facility] Basophils/100 WBC Auto (Bld) Ordered By: Tasha Mehta on 06-09-2023 Basophils/100 WBC (Bld) 0.4 % . [facility] Bilirubin.total [Mass/volume ] in Serum or PlasmaOrdered By: Tasha Mehta on 06-09-2023 Bilirubin [Mass/Vol] 0.5 mg/dL 0.3-1.0 [facility] Calcium [Mass/volume] in Ser um or PlasmaOrdered By: Tasha Mehta on 06-09-2023 Calcium [Mass/Vol] 9.3 mg/dL 8.6-10.3 [facility] Carbon dioxide, total [Moles /volume] in Serum or PlasmaOrdered By: Tasha Mehta on 06-09-2023 CO2 [Moles/Vol] 26.3 mmol/L 21.0-31.0 [facility] Chloride [Moles/volume] in S yany or PlasmaOrdered By: Tasha Mehta on 06-09-2023 Chloride [Moles/Vol] 106 mmol/L 98-107 [facility] Choriogonadotropin.beta subu nit [Units/volume] in Serum or PlasmaOrdered By: Tasha Mehta on 06-09-2023 HCG.beta subunit Qn 0.69 m[IU]/mL [facility] Comment on above: Approximate Approxim ate hCG Gestational Age Range (mIU/ml) (weeks)0.2-1 5-50 1-2 50-500 2-3 100-5,000 3-4 500-10,000 4-5 1,000-50,000 5-6 10,000-100,000 6-8 15,000-200,000 8-12 10,000-100,000 Creatinine [Mass/volume] in Serum or PlasmaOrdered By: Tasha Mehta on 06-09-2023 Creatinine [Mass/Vol] 0.82 mg/dL 0.60-1.20 [facility] Eosinophils Auto (Bld) [#/Vo l]Ordered By: Tasha Mehta on 06-09-2023 Eosinophils (Bld) [#/Vol] 0.0 10*3/uL 0.0-0.45 [facility] Eosinophils/100 WBC Auto (Bl d)Ordered By: Tasha Mehta on 06-09-2023 Eosinophils/100 WBC (Bld) 1.2 % . [facility] Erythrocyte distribution wid th Auto (RBC) [Ratio]Ordered By: Tasha Metha on 06-09-2023 Erythrocyte distribution width (RBC) [Ratio] 13.2 % 11.9-15.3 [facility] Globulin Calc (S) [Mass/Vol] Ordered By: Tasha Mehta on 06-09-2023 Globulin (S) [Mass/Vol] 2.5 g/dL [facility] Glucose [Mass/volume] in Ser um or PlasmaOrdered By: Tasha Mehta on 06-09-2023 Glucose [Mass/Vol] 78 mg/dL 70-100 [facility] Comment on above: ADA recommended refe rence rangeRandom Glucose Reference Range is dependent on time and content of last meal. Glucose of more than 200 mg/dL in a nonstressed, ambulatory subject supports the diagnosis of Diabetes Mellitus. Hematocrit Auto (Bld) [Volum e fraction]Ordered By: Tasha Mehta on 06-09-2023 Hematocrit (Bld) [Volume fraction] 38.1 % 34.0-46.4 [facility] Hemoglobin [Mass/volume] in BloodOrdered By: Tasha Mehta on 06-09-2023 Hemoglobin (Bld) [Mass/Vol] 13.3 g/dL 11.8-15.4 [facility] Hepatitis Acute Panelon 05-23 HBsAg Screen Negative Normal Negative [facility] Comment on above: Performed By: #### H EPACUTE #### [facility] , Hepatitis A Antibody IgM Negative Normal Negative [facility] Comment on above: Performed By: #### H EPACUTE #### [facility] , Hepatitis B Core Antibody IgM Negative Normal Negative [facility] Comment on above: Performed By: #### H EPACUTE #### [facility] , Hepatitis C Virus Antibody Non-Reactive Normal Non Reactive [facility] Comment on above: Performed By: #### H EPACUTE #### [facility] , Interpretation Hepatitis C Normal . [facility] Comment on above: Result Comment: Not infected with HCV unless early or acute infection is suspected (which may be delayed in an immunocompromised individual), or other evidence exists to indicate HCV infection. Performed at: [facility] [address] [id number] [place] Machinist: Hank Leung PhD, Phone: [phone] PERFORMED BY: [address] [address] PATHOLOGIST RISK MANAGER RONEL ROJO M.D. Performed By: #### H EPACUTE #### [facility] , HBsAg Screen Negative Normal Negative [facility] Comment on above: Performed By: #### H EPACUTE #### [facility] , Hepatitis A Antibody IgM Negative Normal Negative [facility] Comment on above: Performed By: #### H EPACUTE #### [facility] , Hepatitis B Core Antibody IgM Negative Normal Negative [facility] Comment on above: Performed By: #### H EPACUTE #### [facility] , Hepatitis C Virus Antibody Non-Reactive Normal Non Reactive [facility] Comment on above: Performed By: #### H EPACUTE #### [facility] , Interpretation Hepatitis C Normal . [facility] Comment on above: Result Comment: Not infected with HCV unless early or acute infection is suspected (which may be delayed in an immunocompromised individual), or other evidence exists to indicate HCV infection. Performed at: - [facility] [address] [id number] [place] Machinist: Hank Leung PhD, Phone: [phone] PERFORMED BY: [place] [id number] PATHOLOGIST RISK MANAGER RONEL ROJO M.D. Performed By: #### H EPACUTE #### [facility] , Hepatitis B virus surface Ag [Presence] in Serum or Plasma by ImmunoassayOrdered By: Tasha Mehta on 06-09-2023 HBV surface Ag IA Ql Negative Negative [facility] Hepatitis C virus IgG Ab [Pr esence] in Serum or Plasma by ImmunoassayOrdered By: Tasha Mehta on 06-09-2023 HCV IgG IA Ql Non-Reactive Non Reactive [facility] Leukocytes [#/volume] correc eli for nucleated erythrocytes in Blood by Automated counOrdered By: Tasha Mehta on 06-09-2023 WBC corrected for nucl RBC Auto (Bld) [#/Vol] 3.7 10*3/uL 3.8-11.6 [facility] Lymphocytes Auto (Bld) [#/Vo l]Ordered By: Tasha Mehta on 06-09-2023 Lymphocytes (Bld) [#/Vol] 1.7 10*3/uL 1.00-4.8 [facility] Lymphocytes/100 WBC Auto (Bl d)Ordered By: Tasha Mehta on 06-09-2023 Lymphocytes/100 WBC (Bld) 45.9 % . [facility] MCH Auto (RBC) [Entitic mass ]Ordered By: Tasha Mehta on 06-09-2023 MCH (RBC) [Entitic mass] 31.0 pg 24.7-34.3 [facility] MCHC Auto (RBC) [Mass/Vol]Or dered By: Tasha Mehta on 06-09-2023 MCHC (RBC) [Mass/Vol] 34.9 g/dL 32.0-35.0 [facility] MCV Auto (RBC) [Entitic vol] Ordered By: Tasha Mehta on 06-09-2023 MCV (RBC) [Entitic vol] 88.8 fL 80-100 [facility] Monocytes Auto (Bld) [#/Vol] Ordered By: Tasha Mehta on 06-09-2023 Monocytes (Bld) [#/Vol] 0.3 10*3/uL 0.0-0.8 [facility] Monocytes/100 WBC Auto (Bld) Ordered By: Tasha Mehta on 06-09-2023 Monocytes/100 WBC (Bld) 7.4 % . [facility] Neutrophils Auto (Bld) [#/Vo l]Ordered By: Tasha Mehta on 06-09-2023 Neutrophils (Bld) [#/Vol] 1.7 10*3/uL 1.8-7.7 [facility] Neutrophils/100 WBC Auto (Bl d)Ordered By: Tasha Mehat on 06-09-2023 Neutrophils/100 WBC (Bld) 45.1 % . [facility] No Panel InformationOrdered By: Tasha Mehta on 06-09-2023 Estimated GFR (CKD-EPI) > 60.0 mL/Min [facility] Hepatitis A IgM Antibody Negative Negative [facility] Hepatitis B Core IgM Antibody Negative Negative [facility] Hepatitis C Interpretation See comment . [facility] Comment on above: Not infected with HC V unless early or acute infection issuspected (which may be delayed in an immunocompromisedindividual), or other evidence exists to indicate HCVinfection.Performed at: [facility] [address] [id number] Director: Hank Leung PhD, Phone: [phone] Pharmacy Creatinine Clearance (Chem N/A [facility] Nucleated erythrocytes [Pres ence] in Blood by Automated countOrdered By: Tasha Mehta on 06-09-2023 Nucleated RBC Auto Ql (Bld) 0.1 /100{WBC} 0-0.5 [facility] Platelet mean volume Auto (B ld) [Entitic vol]Ordered By: Tasha Mehta on 06-09-2023 Platelet mean volume (Bld) [Entitic vol] 7.4 fL 6.3-10.7 [facility] Platelets Auto (Bld) [#/Vol] Ordered By: Tasha Mehta on 06-09-2023 Platelets (Bld) [#/Vol] 186 10*3/uL 150-450 [facility] Potassium [Moles/volume] in Serum or PlasmaOrdered By: Tasha Mehta on 06-09-2023 Potassium [Moles/Vol] 3.8 mmol/L 3.5-5.1 [facility] Protein [Mass/volume] in Ser um or PlasmaOrdered By: Tasha Mehta on 06-09-2023 Protein [Mass/Vol] 7.5 g/dL 6.4-8.9 [facility] RBC Auto (Bld) [#/Vol]Ordere d By: Tasha Mehta on 06-09-2023 RBC (Bld) [#/Vol] 4.29 10*6/uL 3.60-5.00 [facility] Serum or plasma albumin/glob ulin mass ratioOrdered By: Tasha Mehta on 06-09-2023 Albumin/Globulin [Mass ratio] 2.0 {ratio} [facility] Serum or plasma anion gap de terminationOrdered By: Tasha Mehta on 06-09-2023 Anion gap [Moles/Vol] 9.5 mmol/L 6.0-15.0 [facility] Sodium [Moles/volume] in Ser um or PlasmaOrdered By: Tasha Mehta on 06-09-2023 Sodium [Moles/Vol] 138 mmol/L 136-145 [facility] Thyrotropin [Units/volume] i n Serum or PlasmaOrdered By: Tasha Mehta on 06-09-2023 TSH Qn 4.70 m[IU]/L 0.45-5.33 [facility] Thyroxine (T4) free [Mass/vo lume] in Serum or PlasmaOrdered By: Tasha Mehta on 06-09-2023 Free T4 [Mass/Vol] 1.01 ng/dL 0.61-1.12 [facility] Urea nitrogen [Mass/volume] in Serum or PlasmaOrdered By: Tasha Mehta on 06-09-2023 Urea nitrogen [Mass/Vol] 17 mg/dL 7-25 [facility] WBC Auto (Bld) [#/Vol]Ordere d By: Tasha Mehta on 06-09-2023 WBC (Bld) [#/Vol] 3.7 10*3/uL 3.8-11.6 [facility] Alanine aminotransferase [En zymatic activity/volume] in Serum or PlasmaOrdered By: Tasha Mehta on 01-06-2023 ALT [Catalytic activity/Vol] 9 U/L Normal 7-52 [facility] Comment on above: Order Comment: Reaso n for Exam Postoperative hypothyroidism Reason for Exam Vitamin D deficiency Performed By: #### V [id number], CBC, TSH3 wRFLX, CMP #### [facility] [address] Albumin [Mass/volume] in Ser um or Plasma by Bromocresol green (BCG) dye binding methoOrdered By: Tasha Mehta on 01-06-2023 Albumin BCG dye [Mass/Vol] 5.2 g/dL 3.5-5.7 [facility] Alkaline phosphatase [Enzyma tic activity/volume] in Serum or PlasmaOrdered By: Tasha Mehta on 01-06-2023 ALP [Catalytic activity/Vol] 86 U/L Normal 34-104 [facility] Comment on above: Order Comment: Reaso n for Exam Postoperative hypothyroidism Reason for Exam Vitamin D deficiency Performed By: #### V [id number], CBC, TSH3 wRFLX, CMP #### [facility] [address] Aspartate aminotransferase [ Enzymatic activity/volume] in Serum or PlasmaOrdered By: Tasha Mehta on 01-06-2023 AST [Catalytic activity/Vol] 14 U/L Normal 13-39 [facility] Comment on above: Order Comment: Reaso n for Exam Postoperative hypothyroidism Reason for Exam Vitamin D deficiency Performed By: #### V [id number], CBC, TSH3 wRFLX, CMP #### [facility] [address] [place] [address] Automated basophil %Ordered By: Tasha Mehta on 01-06-2023 Basophils/100 WBC (Bld) 0.2 % Normal . [facility] Comment on above: Order Comment: Reaso n for Exam Postoperative hypothyroidism Performed By: #### V [id number], CBC, TSH3 wRFLX, CMP #### [facility] [address] [place] [address] Automated basophil countOrde red By: Tasha Mehta on 01-06-2023 Basophils (Bld) [#/Vol] 0.0 10*3/uL Normal 0.0-0.2 [facility] Comment on above: Order Comment: Reaso n for Exam Postoperative hypothyroidism Result Comment: PERF ORMED BY: [place] [address] PATHOLOGIST RISK MANAGER RONEL ROJO M.D. Performed By: #### V [id number], CBC, TSH3 wRFLX, CMP #### [facility] [address] [place] [address] Automated blood monocyte cou ntOrdered By: Tasha Mehta on 01-06-2023 Monocytes (Bld) [#/Vol] 0.3 10*3/uL Normal 0.0-0.8 [facility] Comment on above: Order Comment: Reaso n for Exam Postoperative hypothyroidism Performed By: #### V [id number], CBC, TSH3 wRFLX, CMP #### [facility] [address] Automated eosinophil %Ordere d By: Tasha Mehta on 01-06-2023 Eosinophils/100 WBC (Bld) 1.2 % Normal . [facility] Comment on above: Order Comment: Reaso n for Exam Postoperative hypothyroidism Performed By: #### V [id number], CBC, TSH3 wRFLX, CMP #### [facility] [address] Automated eosinophil countOr dered By: Tasha Mehta on 01-06-2023 Eosinophils (Bld) [#/Vol] 0.1 10*3/uL Normal 0.0-0.45 [facility] Comment on above: Order Comment: Reaso n for Exam Postoperative hypothyroidism Performed By: #### V [id number], CBC, TSH3 wRFLX, CMP #### [facility] [address] [place] [address] [place] Automated monocyte %Ordered By: Tasha Mehta on 01-06-2023 Monocytes/100 WBC (Bld) 6.1 % Normal . [facility] Comment on above: Order Comment: Reaso n for Exam Postoperative hypothyroidism Performed By: #### V [id number], CBC, TSH3 wRFLX, CMP #### [facility] [address] [place] [address] [place] Automated neutrophil %Ordere d By: Tasha Mehta on 01-06-2023 Neutrophils/100 WBC (Bld) 50.8 % Normal . [facility] Comment on above: Order Comment: Reaso n for Exam Postoperative hypothyroidism Performed By: #### V [id number], CBC, TSH3 wRFLX, CMP #### [facility] [address] Bilirubin.total [Mass/volume ] in Serum or PlasmaOrdered By: Tasha Mehta on 01-06-2023 Bilirubin [Mass/Vol] 0.5 mg/dL Normal 0.3-1.0 [facility] Comment on above: Order Comment: Reaso n for Exam Postoperative hypothyroidism Reason for Exam Vitamin D deficiency Performed By: #### V [id number], CBC, TSH3 wRFLX, CMP #### [facility] [address] [place] [id number] [facility] Calcium [Mass/volume] in Ser um or PlasmaOrdered By: Tasha Mehta on 01-06-2023 Calcium [Mass/Vol] 9.7 mg/dL Normal 8.6-10.3 [facility] Comment on above: Order Comment: Reaso n for Exam Postoperative hypothyroidism Reason for Exam Vitamin D deficiency Performed By: #### V [id number], CBC, TSH3 wRFLX, CMP #### [facility] [address] [place] [id number] [facility] Carbon dioxide, total [Moles /volume] in Serum or PlasmaOrdered By: Tasha Mehta on 01-06-2023 CO2 [Moles/Vol] 27.7 mmol/L Normal 21.0-31.0 [facility] Comment on above: Order Comment: Reaso n for Exam Postoperative hypothyroidism Reason for Exam Vitamin D deficiency Performed By: #### V [id number], CBC, TSH3 wRFLX, CMP #### [facility] [address] [place] [id number] [place] Chloride [Moles/volume] in S yany or PlasmaOrdered By: Tasha Mehta on 01-06-2023 Chloride [Moles/Vol] 106 mmol/L Normal 98-107 [facility] Comment on above: Order Comment: Reaso n for Exam Postoperative hypothyroidism Reason for Exam Vitamin D deficiency Performed By: #### V [id number], CBC, TSH3 wRFLX, CMP #### [facility] [address] [place] [id number] [place] Complete Blood Count Auto Di ffon 01-06-2023 Mean Corpuscular HGB Conc 34.9 g/dL Normal 32.0-35.0 [facility] Comment on above: Order Comment: Reaso n for Exam Postoperative hypothyroidism Performed By: #### V [id number], CBC, TSH3 wRFLX, CMP #### [facility] [address] [place] [id number] [place] NRBC% 0.2 /100{WBC} Normal 0-0.5 [facility] Comment on above: Order Comment: Reaso n for Exam Postoperative hypothyroidism Performed By: #### V [id number], CBC, TSH3 wRFLX, CMP #### [facility] [address] Comprehensive Metabolic Pane felicia 01-06-2023 Albumin [Mass/Vol] 5.2 g/dL Normal 3.5-5.7 [facility] Comment on above: Order Comment: Reaso n for Exam Postoperative hypothyroidism Reason for Exam Vitamin D deficiency Performed By: #### V [id number], CBC, TSH3 wRFLX, CMP #### [facility] [address] GFR/1.73 sq M.predicted MDRD (S/P/Bld) [Vol rate/Area] mL/min/{1.73_m2} Normal [facility] Comment on above: Order Comment: Reaso n for Exam Postoperative hypothyroidism Reason for Exam Vitamin D deficiency Performed By: #### V [id number], CBC, TSH3 wRFLX, CMP #### [facility] [address] [place] [address] Creatinine [Mass/volume] in Serum or PlasmaOrdered By: Tasha Mehta on 01-06-2023 Creatinine [Mass/Vol] 0.77 mg/dL Normal 0.60-1.20 [facility] Comment on above: Order Comment: Reaso n for Exam Postoperative hypothyroidism Reason for Exam Vitamin D deficiency Performed By: #### V [id number], CBC, TSH3 wRFLX, CMP #### [facility] [address] Erythrocyte distribution wid th [Ratio] by Automated countOrdered By: Tasha Mehta on 01-06-2023 Erythrocyte distribution width (RBC) [Ratio] 14.9 % Normal 11.9-15.3 [facility] Comment on above: Order Comment: Reaso n for Exam Postoperative hypothyroidism Performed By: #### V [id number], CBC, TSH3 wRFLX, CMP #### [facility] [address] Erythrocytes [#/volume] in B lood by Automated countOrdered By: Tasha Mehta on 01-06-2023 RBC (Bld) [#/Vol] 4.78 10*6/uL Normal 3.60-5.00 [facility] Comment on above: Order Comment: Reaso n for Exam Postoperative hypothyroidism Performed By: #### V [id number], CBC, TSH3 wRFLX, CMP #### [facility] [address] [place] [address] [place] Glucose [Mass/volume] in Ser um or PlasmaOrdered By: Tasha Mehta on 01-06-2023 Glucose [Mass/Vol] 94 mg/dL Normal 70-100 [facility] Comment on above: ADA recommended refe rence rangeRandom Glucose Reference Range is dependent on time and content of last meal. Glucose of more than 200 mg/dL in a nonstressed, ambulatory subject supports the diagnosis of Diabetes Mellitus. Order Comment: Reaso n for Exam Postoperative hypothyroidism Reason for Exam Vitamin D deficiency Result Comment: [place] Glucose Reference Range is dependent on time and content of last meal. Glucose of more than 200 mg/dL in a nonstressed, ambulatory subject supports the diagnosis of Diabetes Mellitus. ADA recommended reference range Performed By: #### V [id number], CBC, TSH3 wRFLX, CMP #### [facility] [address] [place] [phone] [place] Hematocrit [Volume Fraction] of Blood by Automated countOrdered By: Tasha Mehta on 01-06-2023 Hematocrit (Bld) [Volume fraction] 41.1 % Normal 34.0-46.4 [facility] Comment on above: Order Comment: Reaso n for Exam Postoperative hypothyroidism Performed By: #### V [id number], CBC, TSH3 wRFLX, CMP #### [facility] [address] [place] [phone] [place] Hemoglobin [Mass/volume] in BloodOrdered By: Tasha Mehta on 01-06-2023 Hemoglobin (Bld) [Mass/Vol] 14.3 g/dL Normal 11.8-15.4 [facility] Comment on above: Order Comment: Reaso n for Exam Postoperative hypothyroidism Performed By: #### V [id number], CBC, TSH3 wRFLX, CMP #### [facility] [address] Leukocytes [#/volume] correc eli for nucleated erythrocytes in Blood by Automated counOrdered By: Tasha Mehta on 01-06-2023 WBC corrected for nucl RBC Auto (Bld) [#/Vol] 4.1 10*3/uL 3.8-11.6 [facility] Leukocytes [#/volume] in Blo od by Automated countOrdered By: Tasha Mehta on 01-06-2023 WBC (Bld) [#/Vol] 4.1 10*3/uL Normal 3.8-11.6 [facility] Comment on above: Order Comment: Reaso n for Exam Postoperative hypothyroidism Performed By: #### V [id number], CBC, TSH3 wRFLX, CMP #### [facility] [address] [place] [address] [place] Lymphocytes [#/volume] in Bl ood by Automated countOrdered By: Tasha Mehta on 01-06-2023 Lymphocytes (Bld) [#/Vol] 1.7 10*3/uL Normal 1.00-4.8 [facility] Comment on above: Order Comment: Reaso n for Exam Postoperative hypothyroidism Performed By: #### V [id number], CBC, TSH3 wRFLX, CMP #### [facility] [address] [place] [address] [place] Lymphocytes/100 leukocytes i n Blood by Automated countOrdered By: Tasha Mehta on 01-06-2023 Lymphocytes/100 WBC (Bld) 41.7 % Normal . [facility] Comment on above: Order Comment: Reaso n for Exam Postoperative hypothyroidism Performed By: #### V [id number], CBC, TSH3 wRFLX, CMP #### [facility] [address] [place] [phone] [place] MCH [Entitic mass] by Automa eli countOrdered By: Tasha Mehta on 01-06-2023 MCH (RBC) [Entitic mass] 30.0 pg Normal 24.7-34.3 [facility] Comment on above: Order Comment: Reaso n for Exam Postoperative hypothyroidism Performed By: #### V [id number], CBC, TSH3 wRFLX, CMP #### [facility] [address] MCHC Auto (RBC) [Mass/Vol]Or dered By: Tasha Mehta on 01-06-2023 MCHC (RBC) [Mass/Vol] 34.9 g/dL 32.0-35.0 [facility] MCV [Entitic volume] by Auto mated countOrdered By: Tasha Mehta on 01-06-2023 MCV (RBC) [Entitic vol] 86.0 fL Normal 80-100 [facility] Comment on above: Order Comment: Reaso n for Exam Postoperative hypothyroidism Performed By: #### V [id number], CBC, TSH3 wRFLX, CMP #### [facility] [address] [place] [address] Neutrophils [#/volume] in Bl ood by Automated countOrdered By: Tasha Mehta on 01-06-2023 Neutrophils (Bld) [#/Vol] 2.1 10*3/uL Normal 1.8-7.7 [facility] Comment on above: Order Comment: Reaso n for Exam Postoperative hypothyroidism Performed By: #### V [id number], CBC, TSH3 wRFLX, CMP #### [facility] [address] [place] [address] No Panel InformationOrdered By: Tasha Mheta on 01-06-2023 Estimated GFR (CKD-EPI) > 60.0 mL/Min [facility] Creatinine Clearance (Chem N/A [facility] Nucleated erythrocytes [Pres ence] in Blood by Automated countOrdered By: Tasha Mehta on 01-06-2023 Nucleated RBC Auto Ql (Bld) 0.2 /100{WBC} 0-0.5 [facility] Platelet mean volume [Entiti c volume] in Blood by Automated countOrdered By: Tasha Mehta on 01-06-2023 Platelet mean volume (Bld) [Entitic vol] 7.5 fL Normal 6.3-10.7 [facility] Comment on above: Order Comment: Reaso n for Exam Postoperative hypothyroidism Performed By: #### V [id number], CBC, TSH3 wRFLX, CMP #### [facility] [address] [place] [phone] [place] Platelets [#/volume] in Bloo d by Automated countOrdered By: Tasha Mehta on 01-06-2023 Platelets (Bld) [#/Vol] 202 10*3/uL Normal 150-450 [facility] Comment on above: Order Comment: Reaso n for Exam Postoperative hypothyroidism Performed By: #### V [id number], CBC, TSH3 wRFLX, CMP #### [facility] [address] [place] [phone] [place] Potassium [Moles/volume] in Serum or PlasmaOrdered By: Tasha Mehta on 01-06-2023 Potassium [Moles/Vol] 3.8 mmol/L Normal 3.5-5.1 [facility] Comment on above: Order Comment: Reaso n for Exam Postoperative hypothyroidism Reason for Exam Vitamin D deficiency Performed By: #### V [id number], CBC, TSH3 wRFLX, CMP #### [facility] [address] [place] [phone] [place] Protein [Mass/volume] in Ser um or PlasmaOrdered By: Tasha Mehta on 01-06-2023 Protein [Mass/Vol] 8.1 g/dL Normal 6.4-8.9 [facility] Comment on above: Order Comment: Reaso n for Exam Postoperative hypothyroidism Reason for Exam Vitamin D deficiency Performed By: #### V [id number], CBC, TSH3 wRFLX, CMP #### [facility] [address] [place] [address] [place] Serum globulin measurement b y calculation (mass/volume)Ordered By: Tasha Mehta on 01-06-2023 Globulin (S) [Mass/Vol] 2.9 g/dL Normal [facility] Comment on above: Order Comment: Reaso n for Exam Postoperative hypothyroidism Reason for Exam Vitamin D deficiency Performed By: #### V [id number], CBC, TSH3 wRFLX, CMP #### [facility] [address] Serum or plasma albumin/glob ulin mass ratioOrdered By: Tasha Mehta on 01-06-2023 Albumin/Globulin [Mass ratio] 1.8 {ratio} Normal [facility] Comment on above: Order Comment: Reaso n for Exam Postoperative hypothyroidism Reason for Exam Vitamin D deficiency Performed By: #### V [id number], CBC, TSH3 wRFLX, CMP #### [facility] [address] Serum or plasma anion gap de terminationOrdered By: Tasha Mehta on 01-06-2023 Anion gap [Moles/Vol] 9.1 mmol/L Normal 6.0-15.0 [facility] Comment on above: Order Comment: Reaso n for Exam Postoperative hypothyroidism Reason for Exam Vitamin D deficiency Performed By: #### V [id number], CBC, TSH3 wRFLX, CMP #### [facility] [address] Sodium [Moles/volume] in Ser um or PlasmaOrdered By: Tasha Mehta on 01-06-2023 Sodium [Moles/Vol] 139 mmol/L Normal 136-145 [facility] Comment on above: Order Comment: Reaso n for Exam Postoperative hypothyroidism Reason for Exam Vitamin D deficiency Performed By: #### V [id number], CBC, TSH3 wRFLX, CMP #### [facility] [address] [place] [address] Thyroid Stim Hormone w/Rflxo n 01-06-2023 Thyroid Stim Hormone w/Rflx 1.34 u[iU]/mL Normal 0.45-5.33 [facility] Comment on above: Order Comment: Reaso n for Exam Postoperative hypothyroidism Reason for Exam Vitamin D deficiency Performed By: #### V [id number], CBC, TSH3 wRFLX, CMP #### [facility] [address] Thyrotropin [Units/volume] i n Serum or PlasmaOrdered By: Tasha Mehta on 01-06-2023 TSH Qn 1.34 m[IU]/L 0.45-5.33 [facility] Urea nitrogen [Mass/volume] in Serum or PlasmaOrdered By: Tasha Mehta on 01-06-2023 Urea nitrogen [Mass/Vol] 10 mg/dL Normal 7-25 [facility] Comment on above: Order Comment: Reaso n for Exam Postoperative hypothyroidism Reason for Exam Vitamin D deficiency Performed By: #### V [id number], CBC, TSH3 wRFLX, CMP #### [facility] [address] [place] [address] [facility] Vitamin D 25 Hydroxy Totalon 01-06-2023 Vitamin D 25 Hydroxy Total 34.5 ng/mL Normal 30-100 [facility] Comment on above: Order [...] practice guideline. JCEM. 2010; 96(7):1911-30. PERFORMED BY: [facility] [address] [facility] [address] PATHOLOGIST RISK MANAGER RONEL ROJO M.D. Performed By: #### V [id number], CBC, TSH3 wRFLX, CMP #### [facility] [address] [place] [address] [facility] Vitamin D+Metabolites [Mass/ volume] in Serum or PlasmaOrdered By: Tasha Mehta on 01-06-2023 Vitamin D+Metabolites [Mass/Vol] 34.5 ng/mL 30-100 [facility] Comment on above: VITAMIN D STATUS 25( [place])VITAMIN D RANGE (ng/mL) Deficient <20 Insufficient 20 to <30Sufficient 30 to 100Reference: Melony Burton, Adiel BHATT, et al. Evaluation,treatment, [...] verified and consents confirmed. PROCEDURE DETAILS: The pyrotechnics press tender's and physician's hands were washed immediately prior to the procedure using a chlorhexidine soap or sanitized using ethyl alcohol hand patient transition specialist. Hat, mask, and sterile gloves were used [...] Note angulation above [facility] Radiology Study observation (narrative) [facility] RAPID TOX SCREEN,URINEon AMPHETAMINE Negative Normal NEGATIVE [facility] Comment on above: Result Comment: <500 ng/ml CUTOFF BARBITURATES Negative Normal NEGATIVE [facility] Comment on above: Result Comment: <200 ng/ml CUTOFF BENZODIAZEPINES Negative Normal NEGATIVE [facility] Comment on above: Result Comment: <150 ng/ml CUTOFF BUPRENORPHINE Negative Normal NEGATIVE [facility] Comment on above: Result Comment: <10 ng/ml CUTOFF CANNABINOIDS Negative Normal NEGATIVE [facility] Comment on above: Result Comment: <50 ng/ml CUTOFF COCAINE Negative Normal NEGATIVE [facility] Comment on above: Result Comment: <150 ng/ml CUTOFF METHADONE Negative Normal NEGATIVE [facility] Comment on above: Result Comment: <200 ng/ml CUTOFF METHAMPHETAMINE Negative Normal NEGATIVE [facility] Comment on above: Result Comment: <500 ng/ml CUTOFF OPIATES Negative Normal NEGATIVE [facility] Comment on above: Result Comment: <100 ng/ml CUTOFF OXYCODONE Positive Abnormal NEGATIVE [facility] Comment on above: Result Comment: <100 ng/ml CUTOFF *Unconfirmed Screening Result* Unconfirmed screening results are to be used only for medical treatment purposes. PHENCYCLIDINE Negative Normal NEGATIVE [facility] Comment on above: Result Comment: <25 ng/ml CUTOFF PROPOXYPHENE Negative Normal NEGATIVE [facility] Comment on above: Result Comment: <300 ng/ml CUTOFF TRICYCLIC ANTIDEPRESSANTS Negative Normal NEGATIVE [facility] Comment on above: Result Comment: <300 ng/ml CUTOFF URINE HCG QUALon 01-24-2022 Beta HCG ( test) Ql (U) Negative Normal [facility] XR SACRUM/COCCYX 2+ VWon XR SACRUM/COCCYX [...] IMPRESSION: 1. No acute osseous abnormality. Normal [facility] XR SPINE LUMBOSACRAL AP AND LATERALon [...] IMPRESSION: 1. No acute osseous abnormality. Normal [facility] SMALL JOINT/BURSA INJECTION AND/OR ASPIRATION: R L3-L4 interspinous bursaon 12-28-2021 Radiology Study observation (narrative) [facility] SMALL JOINT/BURSA INJECTION AND/OR ASPIRATION: R L5-S1 interspinous bursaon 12-28-2021 Radiology Study observation (narrative) [facility] No Panel Informationon 12-09 [facility] SMALL JOINT/BURSA INJECTION AND/OR ASPIRATION: R [...] consent. The patient was prepped with alcohol. [facility] SMALL JOINT/BURSA INJECTION AND/OR ASPIRATION: R [...] consent. The patient was prepped with alcohol. [facility] MR Lumbar spine WO contrasto n [...] the lower lumbar spine, not significant change.. [facility] MR Lumbar spine WO contrastO rdered By: Jose Luis Valentine on 12-06-2021 [facility] Work Phone: MRI SPINE LUMBAR WITHOUT CON [...] lower lumbar spine, not significant change.. Normal [facility] MR Lumbar spine WO contrasto n 12-04-2021 Radiology Study observation (narrative) [facility] MR Sacrum WO contraston 07- IMPRESSION: [...] hematoma, atrophy or fatty infiltration. RADIOLOGY Bruno Guzman DO - 12/04/2021 EXAM: MRI SACRUM WITHOUT [...] of the right sacral bone marrow edema. [facility] Radiology Study observation (narrative) [facility] MR Sacrum WO contrastOrdered By: Bruno Guzman on 12-04-2021 [facility] Work Phone: MRI SACRUM WITHOUT CONTRASTo [...] the right sacral bone marrow edema. Normal [facility] LOWER EXTREMITY INJECTIONon 12-02-2021 Radiology Study observation (narrative) [facility] LOWER EXTREMITY INJECTIONon 11-25-2021 Zhanna Ronal 12/02/2021 11:06 AM LOWER EXTREMITY INJECTION Date/Time: [...] fashion. The patient was prepped with alcohol. [facility] CT ABDOMEN/PELVIS WITH CONTR Laverne 10-29-2021 [...] acute hepatic inflammation. 4. Normal appendix. Normal [facility] CT SPINE LUMBAR WITHOUT CONT [facility] 10-29-2021 CT SPINE LUMBAR WITHOUT CONTRAST EXAM: [...] aspect of the S3 sacral segment. Normal [facility] CBCon 10-28-2021 ABSOLUTE BAS 0.0 10*3/uL Normal 0.0-0.2 [facility] Comment on above: Performed By: #### L IVR, ACBC, CHEM7F, SHCGT, LIPA2 #### Testing performed at [address] [address] ABSOLUTE EOS 0.10 10*3/uL Normal 0.0-0.7 [facility] Comment on above: Performed By: #### L IVR, ACBC, CHEM7F, SHCGT, LIPA2 #### Testing performed at [address] [address] ABSOLUTE NEUTROPHIL COUNT 3.5 10*3/uL Normal 1.4-6.5 [facility] Comment on above: Performed By: #### L IVR, ACBC, CHEM7F, SHCGT, LIPA2 #### Testing performed at [address] [address] Basophils/100 WBC (Bld) 0.4 % Normal 0.0-2.0 [facility] Comment on above: Performed By: #### L IVR, ACBC, CHEM7F, SHCGT, LIPA2 #### Testing performed at [address] [address] DTYPE AUTO DIFF Normal [facility] Comment on above: Performed By: #### L IVR, ACBC, CHEM7F, SHCGT, LIPA2 #### Testing performed at [address] [address] Eosinophils/100 WBC (Bld) 0.7 % Normal 0.0-11.0 [facility] Comment on above: Performed By: #### L IVR, ACBC, CHEM7F, SHCGT, LIPA2 #### Testing performed at [address] [address] Lymphocytes (Bld) [#/Vol] 2.90 10*3/uL Normal 1.2-3.4 [facility] Comment on above: Performed By: #### L IVR, ACBC, CHEM7F, SHCGT, LIPA2 #### Testing performed at [address] [address] Lymphocytes/100 WBC (Bld) 41.4 % Normal 20.0-55.0 [facility] Comment on above: Performed By: #### L IVR, ACBC, CHEM7F, SHCGT, LIPA2 #### Testing performed at [address] [address] Monocytes (Bld) [#/Vol] 0.6 10*3/uL Normal 0.0-0.7 [facility] Comment on above: Performed By: #### L IVR, ACBC, CHEM7F, SHCGT, LIPA2 #### Testing performed at [address] [address] Monocytes/100 WBC (Bld) 8.6 % Normal 0.0-10.0 [facility] Comment on above: Performed By: #### L IVR, ACBC, CHEM7F, SHCGT, LIPA2 #### Testing performed at [address] [address] Neutrophils/100 WBC (Bld) 48.9 % Normal 37.0-75.0 [facility] Comment on above: Performed By: #### L IVR, ACBC, CHEM7F, SHCGT, LIPA2 #### Testing performed at [address] [address] Erythrocyte distribution width (RBC) [Ratio] 13.7 % Normal 11.5-14.5 [facility] Comment on above: Performed By: #### L IVR, ACBC, CHEM7F, SHCGT, LIPA2 #### Testing performed at [address] [address] Hematocrit (Bld) [Volume fraction] 39.2 % Normal 36.0-48.0 [facility] Comment on above: Performed By: #### L IVR, ACBC, CHEM7F, SHCGT, LIPA2 #### Testing performed at [address] [address] Hemoglobin (Bld) [Mass/Vol] 13.5 g/dL Normal 12.0-16.0 [facility] Comment on above: Performed By: #### L IVR, ACBC, CHEM7F, SHCGT, LIPA2 #### Testing performed at [address] [address] MCH (RBC) [Entitic mass] 30.2 pg Normal 26.0-35.0 [facility] Comment on above: Performed By: #### L IVR, ACBC, CHEM7F, SHCGT, LIPA2 #### Testing performed at [address] [address] MCHC (RBC) [Mass/Vol] 34.4 g/dL Normal 27.0-37.0 [facility] Comment on above: Performed By: #### L IVR, ACBC, CHEM7F, SHCGT, LIPA2 #### Testing performed at [address] [address] MCV (RBC) [Entitic vol] 87.8 fL Normal 80.0-100.0 [facility] Comment on above: Performed By: #### L IVR, ACBC, CHEM7F, SHCGT, LIPA2 #### Testing performed at [address] [address] Platelet mean volume (Bld) [Entitic vol] 6.7 fL Low 7.4-11.0 [facility] Comment on above: Performed By: #### L IVR, ACBC, CHEM7F, SHCGT, LIPA2 #### Testing performed at [address] [place] [address] Platelets (Bld) [#/Vol] 231 10*3/uL Normal 130.0-400.0 [facility] Comment on above: Performed By: #### L IVR, ACBC, CHEM7F, SHCGT, LIPA2 #### Testing performed at [address] [address] RBC (Bld) [#/Vol] 4.46 10*6/uL Normal 4.0-5.4 [facility] Comment on above: Performed By: #### L IVR, ACBC, CHEM7F, SHCGT, LIPA2 #### Testing performed at [address] [address] WBC (Bld) [#/Vol] 7.1 10*3/uL Normal 3.6-11.0 [facility] Comment on above: Performed By: #### L IVR, ACBC, CHEM7F, SHCGT, LIPA2 #### Testing performed at [address] [address] CHEM 7 FASTINGon 10-28-2021 Chloride [Moles/Vol] 107 mmol/L Normal 98-107 [facility] Comment on above: Performed By: #### L IVR, ACBC, CHEM7F, SHCGT, LIPA2 #### Testing performed at [address] [address] CO2 [Moles/Vol] 23 mmol/L Normal 22-[address] [facility] Comment on above: Performed By: #### L IVR, ACBC, CHEM7F, SHCGT, LIPA2 #### Testing performed at [address] [address] Creatinine [Mass/Vol] 0.94 mg/dL Normal 0.52-1.04 [facility] Comment on above: Performed By: #### L IVR, ACBC, CHEM7F, SHCGT, LIPA2 #### Testing performed at [address] [address] EST. GFR, 93 ml/min/1.73sq.m Normal [facility] Comment on above: Performed By: #### L IVR, ACBC, CHEM7F, SHCGT, LIPA2 #### Testing performed at [address] [address] EST. GFR,Non 77 ml/min/1.73sq.m Normal [facility] Comment on above: Performed By: #### L IVR, ACBC, CHEM7F, SHCGT, LIPA2 #### Testing performed at [address] [address] GFR Information Average GFR for 20-29 years old = 116. Normal [facility] Comment on above: Result Comment: Cloth Shrinking Tester zina Kidney disease, GFR = <60. Kidney failure, GFR = <15. The GFR estimate is not adjusted for extreme body surface area or acute process, nor has it been validated for women or ethnic groups other than and . Performed By: #### L IVR, ACBC, CHEM7F, SHCGT, LIPA2 #### Testing performed at [address] [address] Glucose [Mass/Vol] 81 mg/dL Normal 70-100 [facility] Comment on above: Result Comment: NORMAL <100 mg/dL PREDIABETES 101-126 mg/dL DIABETES 126 mg/dL or higher Performed By: #### L IVR, ACBC, CHEM7F, SHCGT, LIPA2 #### Testing performed at [address] [address] Potassium [Moles/Vol] 3.2 mmol/L Low 3.5-5.1 [facility] Comment on above: Performed By: #### L IVR, ACBC, CHEM7F, SHCGT, LIPA2 #### Testing performed at [address] [address] Sodium [Moles/Vol] 138 mmol/L Normal 136-145 [facility] Comment on above: Performed By: #### L IVR, ACBC, CHEM7F, SHCGT, LIPA2 #### Testing performed at [address] [address] Urea nitrogen [Mass/Vol] 25 mg/dL High 7-20 [facility] Comment on above: Performed By: #### L IVR, ACBC, CHEM7F, SHCGT, LIPA2 #### Testing performed at [address] [address] LIPASE,SERUMon 10-28-2021 LIPASE,SERUM 38 U/L Normal 23-300 [facility] Comment on above: Performed By: #### L IVR, ACBC, CHEM7F, SHCGT, LIPA2 #### Testing performed at [address] [address] LIVER PANELon 10-28-2021 Albumin [Mass/Vol] 4.9 g/dL Normal 3.5-5.0 [facility] Comment on above: Performed By: #### L IVR, ACBC, CHEM7F, SHCGT, LIPA2 #### Testing performed at [address] [address] ALP [Catalytic activity/Vol] 56 U/L Normal 38-126 [facility] Comment on above: Performed By: #### L IVR, ACBC, CHEM7F, SHCGT, LIPA2 #### Testing performed at [address] [address] ALT [Catalytic activity/Vol] 25 U/L Normal 14-54 [facility] Comment on above: Performed By: #### L IVR, ACBC, CHEM7F, SHCGT, LIPA2 #### Testing performed at [address] [address] AST [Catalytic activity/Vol] 19 U/L Normal 15-41 [facility] Comment on above: Performed By: #### L IVR, ACBC, CHEM7F, SHCGT, LIPA2 #### Testing performed at [address] [address] Bilirubin [Mass/Vol] 0.5 mg/dL Normal 0.2-1.2 [facility] Comment on above: Performed By: #### L IVR, ACBC, CHEM7F, SHCGT, LIPA2 #### Testing performed at [address] [address] Bilirubin.indirect [Mass/Vol] 0.1 mg/dL Normal 0.0-0.2 [facility] Comment on above: Performed By: #### L IVR, ACBC, CHEM7F, SHCGT, LIPA2 #### Testing performed at [address] [address] Protein [Mass/Vol] 8.4 g/dL High 6.3-8.2 [facility] Comment on above: Performed By: #### L IVR, ACBC, CHEM7F, SHCGT, LIPA2 #### Testing performed at [address] [address] SERUM HCG QUALon 10-28-2021 SERUM BETA HCG,QUAL Negative Normal NEGATIVE [facility] Comment on above: Performed By: #### L IVR, ACBC, CHEM7F, SHCGT, LIPA2 #### Testing performed at [address] [address] URINE MACROSCOPICon 10-29-19 Bilirubin Ql (U) MODERATE Abnormal NEGATIVE [facility] Comment on above: Performed By: #### U KARIN, UMAC #### Testing performed at [address] [address] Clarity (U) CLEAR Normal CLEAR [facility] Comment on above: Performed By: #### U KARIN, UMAC #### Testing performed at [address] [address] Color (U) YELLOW Normal YELLOW [facility] Comment on above: Performed By: #### U KARIN, UMAC #### Testing performed at [address] [address] Glucose Ql (U) Negative Normal NEGATIVE [facility] Comment on above: Performed By: #### U KARIN, UMAC #### Testing performed at [address] [address] pH (U) 5.5 [pH] Normal 5.0-7.0 [facility] Comment on above: Performed By: #### U KARIN, UMAC #### Testing performed at [address] [address] Protein (U) [Mass/Vol] 30 mg/dL Abnormal NEGATIVE [facility] Comment on above: Performed By: #### U KARIN, UMAC #### Testing performed at [address] [address] URINE HEMOGLOBIN Negative Normal NEGATIVE [facility] Comment on above: Performed By: #### U KARIN, UMAC #### Testing performed at [address] [place] [address] URINE KETONE TRACE Abnormal NEGATIVE [facility] Comment on above: Performed By: #### U KARIN, UMAC #### Testing performed at [address] [place] [address] URINE LEUKOTEST Negative Normal NEGATIVE [facility] Comment on above: Performed By: #### U KARIN, UMAC #### Testing performed at [address] [place] [address] URINE NITRATES Negative Normal NEGATIVE [facility] Comment on above: Performed By: #### U KARIN, UMAC #### Testing performed at [address] [address] URINE SPEC GRAVITY >1.030 High 1.010-1.025 [facility] Comment on above: Performed By: #### U KARIN, UMAC #### Testing performed at [address] [address] Urobilinogen Qn (U) 1.0 {Madhav'U}/dL Normal 0.2-1.0 [facility] Comment on above: Performed By: #### U KARIN, UMAC #### Testing performed at [address] [address] URINE MICROSCOPICon 10-29-19 22 BACTERIA TRACE Abnormal NEGATIVE [facility] Comment on above: Performed By: #### U KARIN, UMAC #### Testing performed at [address] [address] CASTS NONE Normal [facility] Comment on above: Performed By: #### U KARIN, UMAC #### Testing performed at [address] [address] CRYSTAL NONE Normal [facility] Comment on above: Performed By: #### U KARIN, UMAC #### Testing performed at [address] [address] Epithelial cells LM Ql (Urine sed) 1 TO 5 Normal [facility] Comment on above: Performed By: #### U KARIN, UMAC #### Testing performed at [address] [place] [address] Mucus Ql (Urine sed) 1+ Abnormal NEGATIVE [facility] Comment on above: Performed By: #### U KARIN, UMAC #### Testing performed at [address] [address] URINE COMMENT CULTURE CRITERIA NOT MET, NO CULTURE PERFORMED. Normal [facility] Comment on above: Performed By: #### U KARIN, UMAC #### Testing performed at [address] [address] URINE RBC'S Negative Normal NEGATIVE [facility] Comment on above: Performed By: #### U KARIN, UMAC #### Testing performed at [address] [address] URINE WBC'S 1 TO 5 Normal NEGATIVE [facility] Comment on above: Performed By: #### U KARIN, UMAC #### [place] [address] MRI SACRUM WITHOUT CONTRASTo n 10-20-2021 MRI [...] subluxation. 2. The coccyx is normal Normal [facility] MR Lumbar spine WO contrasto n [...] or foraminal stenosis at any visualized level. [facility] Radiology Study observation (narrative) [facility] MR Lumbar spine WO contrastO rdered By: Bret De La Cruz on 10-14-2021 [facility] Work Phone: MRI SPINE LUMBAR WITHOUT CON [...] foraminal stenosis at any visualized level. Normal [facility] XR HIP RIGHT 2 VIEWSon 10-14 XR HIP RIGHT 2 VIEWS EXAM: XR HIP RIGHT 2 VIEWS HISTORY: Right hip pain COMPARISON: None. TECHNIQUE: 3 views FINDINGS: Bilateral hip joint spaces are intact. Osseous pelvic ring is intact. There is no fracture or dislocation. No evidence of femoral head osteonecrosis. IMPRESSION: No acute findings Normal [facility] XR Hip - right 2 Viewson [...] head osteonecrosis. IMPRESSION IMPRESSION: No acute findings [facility] Radiology Study observation (narrative) [facility] XR Hip - right 2 ViewsOrdere d By: Pablo Orosco on 10-14-2021 [facility] Work Phone: URINALYSIS, MACROon 10-12-19 22 Bilirubin Ql (U) Negative NEGATIVE [facility] Clarity (U) CLEAR CLEAR [facility] Color (U) YELLOW YELLOW [facility] Glucose Test strip (U) [Mass/Vol] Negative NEGATIVE mg/dl [facility] Hemoglobin Ql (U) Negative NEGATIVE [facility] Ketones (U) [Mass/Vol] Negative NEGAT THEA mg/dl [facility] Leukocyte esterase Test strip Ql (U) Negative NEGATIVE [facility] Nitrite Ql (U) Negative NEGATIVE [facility] pH (U) 6.0 [pH] [facility] Protein Ql (U) Negative NEGATIVE mg/dl [facility] Specific gravity (U) [Rel density] 1.020 [facility] Urobilinogen (U) [Mass/Vol] 0.2 mg/dL [facility] URINE MACROSCOPICon 10-12-19 22 Bilirubin Ql (U) Negative Normal NEGATIVE [facility] Clarity (U) CLEAR Normal CLEAR [facility] Color (U) YELLOW Normal YELLOW [facility] Glucose Ql (U) Negative Normal NEGATIVE [facility] pH (U) 6.0 [pH] Normal 5.0-7.0 [facility] URINE HEMOGLOBIN Negative Normal NEGATIVE [facility] URINE KETONE Negative Normal NEGATIVE [facility] URINE LEUKOTEST Negative Normal NEGATIVE [facility] URINE NITRATES Negative Normal NEGATIVE [facility] URINE SPEC GRAVITY 1.020 Normal 1.010-1.025 [facility] URINE TOTAL PROTEIN Negative Normal NEGATIVE [facility] Urobilinogen Qn (U) 0.2 {Madhav'U}/dL Normal 0.2-1.0 [facility] XR SACRUM/COCCYX 2+ VWon XR SACRUM/COCCYX 2+ VW EXAM: XR SACRUM/COCCYX 2+ VW HISTORY: fall COMPARISON: None. TECHNIQUE: 3 views FINDINGS: The sacral alae are normal. There is cortical irregularity of the distal coccygeal segment, suggestive for nondisplaced coccygeal fracture. Pelvic phleboliths. IMPRESSION: Findings suggestive for nondisplaced coccygeal fracture. Normal [facility] XR SPINE LUMBOSACRAL AP AND LATERALon 10-11-2021 XR SPINE LUMBOSACRAL AP AND LATERAL EXAM: XR SPINE LUMBOSACRAL AP AND LATERAL HISTORY: fall COMPARISON: None. TECHNIQUE: 3 views FINDINGS: Normal alignment. No evidence of fracture/dislocation or significant spondylosis. Moderate retained stool noted in the colon. IMPRESSION: Unremarkable. Normal [facility] XR Sacrum and Coccyx 2 Views [...] IMPRESSION: Findings suggestive for nondisplaced coccygeal fracture. [facility] Radiology Study observation (narrative) [facility] XR Spine lumbosacral junctio n Viewson [...] noted in the colon. IMPRESSION IMPRESSION: Unremarkable. [facility] Radiology Study observation (narrative) [facility] XR Spine lumbosacral junctio n ViewsOrdered By: Ceasar August on 10-11-2021 [facility] Work Phone: POC Urinalysis Dipstick,Auto UCon 08-20-2021 Bilirubin Ql (U) Negative Negative [facility] Clarity, UA Clear Clear [facility] Color (U) Yellow Yellow, Light Yellow, Dark Yellow [facility] Glucose Ql (U) Negative Normal, Negative mg/dL [facility] Hemoglobin Ql (U) Moderate Abnormal Negative [facility] Interpretation and review of laboratory results Abnormal [facility] Ketones Ql (U) Negative Negative mg/dL [facility] Leukocyte esterase Test strip Ql (U) Small Abnormal Negative [facility] Nitrite Ql (U) Negative Negative [facility] pH (U) 6.0 [pH] [facility] Protein Ql (U) 300 Abnormal Negative mg/dL [facility] Specific gravity (U) [Rel density] 1.030 Abnormal [facility] Urobilinogen Qn (U) 0.2 mg/dL <2.0, 0. 2, Normal, Negative, 1.0, 2.0, <1.0 [facility] CBCon 05-30-2021 ABSOLUTE BAS 0.0 10*3/uL Normal 0.0-0.2 [facility] ABSOLUTE EOS 0.00 10*3/uL Normal 0.0-0.7 [facility] ABSOLUTE NEUTROPHIL COUNT 1.9 10*3/uL Normal 1.4-6.5 [facility] Basophils/100 WBC (Bld) 0.9 % Normal 0.0-2.0 [facility] DTYPE AUTO DIFF Normal [facility] Eosinophils/100 WBC (Bld) 1.2 % Normal 0.0-11.0 [facility] Lymphocytes (Bld) [#/Vol] 1.70 10*3/uL Normal 1.2-3.4 [facility] Lymphocytes/100 WBC (Bld) 41.2 % Normal 20.0-55.0 [facility] Monocytes (Bld) [#/Vol] 0.4 10*3/uL Normal 0.0-0.7 [facility] Monocytes/100 WBC (Bld) 10.1 % High 0.0-10.0 [facility] Neutrophils/100 WBC (Bld) 46.6 % Normal 37.0-75.0 [facility] Erythrocyte distribution width (RBC) [Ratio] 12.2 % Normal 11.5-14.5 [facility] Hematocrit (Bld) [Volume fraction] 42.0 % Normal 36.0-48.0 [facility] Hemoglobin (Bld) [Mass/Vol] 14.3 g/dL Normal 12.0-16.0 [facility] MCH (RBC) [Entitic mass] 30.1 pg Normal 26.0-35.0 [facility] MCHC (RBC) [Mass/Vol] 34.1 g/dL Normal 27.0-37.0 [facility] MCV (RBC) [Entitic vol] 88.2 fL Normal 80.0-100.0 [facility] Platelet mean volume (Bld) [Entitic vol] 7.2 fL Low 7.4-11.0 [facility] Platelets (Bld) [#/Vol] 201 10*3/uL Normal 130.0-400.0 [facility] RBC (Bld) [#/Vol] 4.76 10*6/uL Normal 4.0-5.4 [facility] WBC (Bld) [#/Vol] 4.0 10*3/uL Normal 3.6-11.0 [facility] CBC, EDIF, PLATELETon 2021 ABSOLUTE BASOPHIL COUNT 0.0 10*3/uL 0.0 - 0.2 10*3/uL [facility] Basophils/100 WBC (Bld) 0.9 % 0.0 - 2.0 % [facility] Differential cell count method Nom (Bld) AUTO DIFF % [facility] Eosinophils (Bld) [#/Vol] 0.00 10*3/uL 0.0 - 0.7 10*3/uL [facility] Eosinophils/100 WBC (Bld) 1.2 % 0.0 - 11.0 % [facility] Erythrocyte distribution width (RBC) [Ratio] 12.2 % 11.5 - 14.5 % [facility] Hematocrit (Bld) [Volume fraction] 42.0 % 36.0 - 48.0 % [facility] Hemoglobin (Bld) [Mass/Vol] 14.3 g/dL [facility] Interpretation and review of laboratory results Abnormal [facility] Lymphocytes (Bld) [#/Vol] 1.70 10*3/uL 1.2 - 3.4 10*3/uL [facility] Lymphocytes/100 WBC (Bld) 41.2 % 20.0 - 55.0 % [facility] MCH (RBC) [Entitic mass] 30.1 pg 26.0 - 35.0 PG [facility] MCHC (RBC) [Mass/Vol] 34.1 g/dL [facility] MCV (RBC) [Entitic vol] 88.2 fL A [facility] Monocytes (Bld) [#/Vol] 0.4 10*3/uL 0.0 - 0.7 10*3/uL [facility] Monocytes/100 WBC (Bld) 10.1 % High 0.0 - 10.0 % [facility] Neutrophils (Bld) [#/Vol] 1.9 10*3/uL 1.4 - 6.5 10*3/uL [facility] Neutrophils/100 WBC (Bld) 46.6 % 37.0 - 75.0 % [facility] Platelet mean volume (Bld) [Entitic vol] 7.2 fL Low [facility] Platelets (Bld) [#/Vol] 201 10*3/uL 130. 0 - 400.0 10*3/uL [facility] RBC (Bld) [#/Vol] 4.76 10*6/uL 4.0 - 5.4 10*6/uL [facility] WBC (Bld) [#/Vol] 4.0 10*3/uL 3.6 - 11.0 10*3/uL [facility] CHEM 7 FASTINGon 05-30-2021 Chloride [Moles/Vol] 107 mmol/L Normal 98-107 [facility] Comment on above: Result Comment: Geeta clark note: Triglyceride levels of 600mg/dL or higher may positively bias chloride results by approximately 2.1 mmol CO2 [Moles/Vol] 23 mmol/L Normal 22-30 [facility] Creatinine [Mass/Vol] 0.65 mg/dL Low 0.7-1.2 [facility] EST. GFR, >60 Normal [facility] EST. GFR,Non >60 Normal [facility] GFR Information Average GFR for 20-29 years old = 116. Normal [facility] Comment on above: Result Comment: Cloth Shrinking Tester zina Kidney disease, GFR = <60. Kidney failure, GFR = <15. The GFR estimate is not adjusted for extreme body surface area or acute process, nor has it been validated for women or ethnic groups other than and . Glucose [Mass/Vol] 103 mg/dL High 70-100 [facility] Comment on above: Result Comment: NORMAL <100 mg/dL PREDIABETES 101-126 mg/dL DIABETES 126 mg/dL or higher Potassium [Moles/Vol] 3.9 mmol/L Normal 3.5-5.1 [facility] Sodium [Moles/Vol] 141 mmol/L Normal 137-145 [facility] Urea nitrogen [Mass/Vol] 15 mg/dL Normal 7-20 [facility] CHEM 7 (LYTES,BUN,CREA,GLUC) on 05-30-2021 Chloride [Moles/Vol] 107 mmol/L [facility] Comment on above: Please note: Triglyc eride levels of 600mg/dL or higher may positively bias chloride results by approximately 2.1 mmol CO2 [Moles/Vol] 23 mmol/L [facility] Creatinine [Mass/Vol] 0.65 mg/dL Low [facility] GFR COMMENT Average GFR for 20-29 years old = 116. [facility] Comment on above: Chronic Kidney disea se, GFR = <60. Kidney failure, GFR = <15. The GFR estimate is not adjusted for extreme body surface area or acute process, nor has it been validated for women or ethnic groups other than and . GFR/1.73 sq M.predicted among blacks MDRD (S/P/Bld) [Vol rate/Area] mL/min/{1.73_m2} ml/min/1.73s q.m [facility] GFR/1.73 sq M.predicted among non-blacks MDRD (S/P/Bld) [Vol rate/Area] mL/min/{1.73_m2} ml/min/1.73s q.m [facility] Glucose post fast [Mass/Vol] 103 mg/dL High [facility] Comment on above: NORMAL <100 mg/dL PREDIABETES 101-126 mg/dL DIABETES 126 mg/dL or higher Interpretation and review of laboratory results Abnormal [facility] Potassium [Moles/Vol] 3.9 mmol/L [facility] Sodium [Moles/Vol] 141 mmol/L [facility] Urea nitrogen [Mass/Vol] 15 mg/dL [facility] HCG ( test) Ql (U)o n 05-30-2021 [facility] HCG QUALITATIVE, URINEon HCG ( test) Ql (U) Negative [facility] HEPATIC FUNCTION PANELon Albumin [Mass/Vol] 4.5 g/dL [facility] ALP [Catalytic activity/Vol] 43 U/L [facility] ALT [Catalytic activity/Vol] 15 U/L <35 IU/L [facility] AST [Catalytic activity/Vol] 20 U/L [facility] Bilirubin [Mass/Vol] 0.6 mg/dL [facility] Bilirubin.direct [Mass/Vol] 0.1 mg/dL [facility] Protein [Mass/Vol] 7.7 g/dL [facility] LIPASEon 05-30-2021 Lipase [Catalytic activity/Vol] 251 U/L 23 - 300 U/L [facility] LIPASE,SERUMon 05-30-2021 LIPASE,SERUM 251 U/L Normal 23-300 [facility] LIVER PANELon 05-30-2021 Albumin [Mass/Vol] 4.5 g/dL Normal 2.9-5.3 [facility] ALP [Catalytic activity/Vol] 43 U/L Normal 38-126 [facility] ALT [Catalytic activity/Vol] 15 U/L Normal <35 [facility] AST [Catalytic activity/Vol] 20 U/L Normal 14-36 [facility] Bilirubin [Mass/Vol] 0.6 mg/dL Normal 0.2-1.3 [facility] Bilirubin.indirect [Mass/Vol] 0.1 mg/dL Normal 0-0.4 [facility] Protein [Mass/Vol] 7.7 g/dL Normal 6.3-8.2 [facility] MONO SCREENon 05-30-2021 MONO SCREEN Negative Normal NEGATIVE [facility] MONONUCLEOSIS SCREENon 05-30 Heterophile Ab IA Ql Negative NEGATIVE [facility] No Panel Informationon 05-30 [facility] Interpretation and review of laboratory results Abnormal [facility] URINALYSIS, MACROon 05-30-19 22 Bilirubin Ql (U) Negative NEGATIVE [facility] Clarity (U) CLEAR CLEAR [facility] Color (U) YELLOW YELLOW [facility] Glucose Test strip (U) [Mass/Vol] Negative NEGATIVE mg/dl [facility] Hemoglobin Ql (U) TRACE-INTACT Abnormal NEGATIVE [facility] Ketones (U) [Mass/Vol] Negative NEGAT THEA mg/dl [facility] Leukocyte esterase Test strip Ql (U) Negative NEGATIVE [facility] Nitrite Ql (U) Negative NEGATIVE [facility] pH (U) 6.0 [pH] [facility] Protein Ql (U) Negative NEGATIVE mg/dl [facility] Specific gravity (U) [Rel density] 1.025 [facility] Urobilinogen (U) [Mass/Vol] 0.2 mg/dL [facility] URINE HCG QUALon 05-30-2021 Beta HCG ( test) Ql (U) Negative Normal [facility] URINE MACROSCOPICon 05-30-19 22 Bilirubin Ql (U) Negative Normal NEGATIVE [facility] Clarity (U) CLEAR Normal CLEAR [facility] Color (U) YELLOW Normal YELLOW [facility] Glucose Ql (U) Negative Normal NEGATIVE [facility] pH (U) 6.0 [pH] Normal 5.0-7.0 [facility] URINE HEMOGLOBIN TRACE-INTACT Abnormal NEGATIVE [facility] URINE KETONE Negative Normal NEGATIVE [facility] URINE LEUKOTEST Negative Normal NEGATIVE [facility] URINE NITRATES Negative Normal NEGATIVE [facility] URINE SPEC GRAVITY 1.025 Normal 1.010-1.025 [facility] URINE TOTAL PROTEIN Negative Normal NEGATIVE [facility] Urobilinogen Qn (U) 0.2 {Madhav'U}/dL Normal 0.2-1.0 [facility] URINE MICROSCOPICon 05-30-19 22 BACTERIA TRACE Abnormal NEGATIVE [facility] CASTS NONE Normal NONE [facility] CRYSTAL NONE Normal NONE [facility] Epithelial cells LM Ql (Urine sed) 5 TO 10 Normal [facility] Mucus Ql (Urine sed) Negative Normal NEGATIVE [facility] URINE COMMENT CULTURE CRITERIA NOT MET, NO CULTURE PERFORMED. Normal [facility] URINE RBC'S Negative Normal NEGATIVE [facility] URINE WBC'S Negative Normal NEGATIVE [facility] Bacteria LM.HPF (Urine sed) [#/Area] TRACE Abnormal NEGATIVE [facility] Casts LM.LPF (Urine sed) [#/Area] NONE NONE /LPF [facility] Crystals LM Nom (Urine sed) NONE NONE [facility] Epithelial cells LM Ql (Urine sed) 5 TO 10 /HPF [facility] Mucus Ql (Urine sed) Negative NEGATIVE [facility] RBC LM.HPF (Urine sed) [#/Area] Negative NEGATIVE /HPF [facility] Urine sediment comments LM Hung (Urine sed) CULTURE CRITERIA NOT MET, NO CULTURE PERFORMED. [facility] WBC LM.HPF (Urine sed) [#/Area] Negative NEGATIVE /HPF [facility] COVID-19, MOLECULARon 2020 SARS-CoV-2 (COVID-19) Ab IA Ql Not detected Normal Not Detected [facility] Comment on above: Result Comment: This test was performed under the FDA's Emergency Use Authorization (EUA). Testing was performed using the Tactile ID NOW COVID-19 assay on the ID Fastr platform. This test has not been approved for use in asymptomatic patients and its performance in this patient population has not been evaluated. Negative results do not rule out the presence of SARS-CoV-2/COVID-19. Fact sheets for the EUA can be found at the following links: For Healthcare Providers: https://www.fda.gov/media/769952/download For Patients: https://www.fda.gov/media/901908/download COVID-19, Molecularon 2020 SARS-CoV-2 (COVID-19) RdRp gene SHIRA+probe Ql (Resp) Not detected Not Detected [facility] Comment on above: This test was perfor med under the FDA's Emergency Use Authorization (EUA). Testing was performed using the Florian ID NOW COVID-19 assay on the ID Fastr platform. This test has not been approved for use in asymptomatic patients and its performance in this patient population has not been evaluated. Negative results do not rule out the presence of SARS-CoV-2/COVID-19. Fact sheets for the EUA can be found at the following links: For Healthcare Providers: https://www.fda.gov/media/867461/download For Patients: https://www.fda.gov/media/916163/download SARS-CoV-2 (COVID-19) RdRp g cary SHIRA+probe Ql (Resp)on 02-21-2021 Interpretation and review of laboratory results Normal [facility] HCG ( test) Ql (U)o n 01-09-2021 [facility] HCG QUALITATIVE, URINEon HCG ( test) Ql (U) Negative [facility] URINALYSIS, MACROon 01-10-20 21 Bilirubin Ql (U) Negative NEGATIVE [facility] Clarity (U) CLEAR CLEAR [facility] Color (U) YELLOW YELLOW [facility] Glucose Test strip (U) [Mass/Vol] Negative NEGATIVE mg/dl [facility] Hemoglobin Ql (U) Negative NEGATIVE [facility] Ketones (U) [Mass/Vol] Negative NEGAT THEA mg/dl [facility] Leukocyte esterase Test strip Ql (U) Negative NEGATIVE [facility] Nitrite Ql (U) Negative NEGATIVE [facility] pH (U) 7.0 [pH] [facility] Protein Ql (U) Negative NEGATIVE mg/dl [facility] Specific gravity (U) [Rel density] 1.010 [facility] Urobilinogen (U) [Mass/Vol] 0.2 mg/dL [facility] XR SPINE LUMBOSACRAL 5 VIEWS on 01-09-2021 IMPRESSION: No significant bony abnormalities. RADIOLOGY EXAMINATION: XR SPINE LUMBOSACRAL 5 VIEWS, 01/09/2021 1:44 PM EDT HISTORY: Back pain ?2 weeks, no trauma COMPARISON: None. TECHNIQUE: Lumbar spine x-ray: 5 view(s). FINDINGS: The vertebral body heights are maintained. The disc heights are maintained. There are no acute fractures. [facility] Renata Ladd MD - 01/09/2021 EXAMINATION: XR SPINE LUMBOSACRAL 5 VIEWS, 01/09/2021 1:44 PM EDT HISTORY: Back pain ?2 weeks, no trauma COMPARISON: None. TECHNIQUE: Lumbar spine x-ray: 5 view(s). FINDINGS: The vertebral body heights are maintained. The disc heights are maintained. There are no acute fractures. IMPRESSION IMPRESSION: No significant bony abnormalities. [facility] Radiology Study observation (narrative) [facility] XR SPINE LUMBOSACRAL 5 VIEWS Ordered By: Renata Ladd on 01-09-2021 [facility] Work Phone: HCG ( test) Ql (U)o n 01-05-2021 Internal Control Pass [facility] No Panel Informationon 01-05 Interpretation and review of laboratory results Normal [facility] POC , Urineon 01-05 HCG ( test) Ql (U) Negative Negative [facility] POC URINALYSIS, AUTO OH URGE NT CAREon 01-05-2021 Bilirubin Ql (U) Negative Negative [facility] th Clarity, UA Clear Clear [facility] Color (U) Yellow Yellow, Light Yellow, Dark Yellow [facility] Glucose Ql (U) Negative Normal, Negative mg/dL [facility] Hemoglobin Ql (U) Negative Negative [facility] Ketones Ql (U) Negative Negative mg/dL [facility] Leukocyte esterase Test strip Ql (U) Negative Negative [facility] Nitrite Ql (U) Negative Negative [facility] pH (U) 6.5 [pH] [facility] Protein Ql (U) Negative Negative mg/dL [facility] Specific gravity (U) [Rel density] 1.015 [facility] Urobilinogen Qn (U) 0.2 mg/dL <2.0, 0. 2, Normal, Negative, 1.0, 2.0, <1.0 [facility] MRI BRAIN WITHOUT CONTRASTon 07-18-2020 IMPRESSION: Normal MRI of the brain. [facility] MRI BRAIN WITHOUT CONTRAST, 07/18/2020. HISTORY: Migraine headaches. COMPARISON: CT head without contrast, 08/31/2018. TECHNIQUE: Sagittal and axial T1, axial T2, FLAIR, diffusion and T2 gradient images were obtained. FINDINGS: Paranasal sinuses are clear. Mastoid air cells are clear. Nasopharynx normal. 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 Orbital contents normal. No hydrocephalus. No extra-axial fluid collections. No mass effect. No shift of midline. No abnormal signal in the brain. No diffusion restriction. No acute infarction. Pituitary gland is normal in size. No cerebellar tonsil ectopia. No masses. [facility] User, Interfaces - 07/18/2020 1:13 PM EST MRI BRAIN WITHOUT CONTRAST, 07/18/2020. HISTORY: Migraine headaches. COMPARISON: CT head without contrast, 08/31/2018. TECHNIQUE: Sagittal and axial T1, axial T2, FLAIR, diffusion and T2 gradient images were obtained. FINDINGS: Paranasal sinuses are clear. Mastoid air cells are clear. Nasopharynx normal. 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 Orbital contents normal. No hydrocephalus. No extra-axial fluid collections. No mass effect. No shift of midline. No abnormal signal in the brain. No diffusion restriction. No acute infarction. Pituitary gland is normal in size. No cerebellar tonsil ectopia. No masses. IMPRESSION IMPRESSION: Normal MRI of the brain. [facility] XR FOOT RIGHT 3 VIEWSon 04-23 IMPRESSION: Suspected film artifact along the plantar aspect of the foot at the tarsometatarsal junction. No convincing radiopaque foreign body in the soft tissues of the heel. [employer] [facility] EXAM: XR FOOT RIGHT 3 VIEWS [...] seen in the region of the heel. [facility] User, Interfaces - 05/12/2020 10:01 PM EST [...] in the soft tissues of the heel. [facility] HCG QUALITATIVE, URINEon HCG ( test) Ql (U) Negative [facility] BASIC METABOLIC PANELon 08-21 Anion gap [Moles/Vol] 8 mmol/L [employer] Calcium [Mass/Vol] 9.5 mg/dL [facility] Chloride [Moles/Vol] 105 mmol/L [facility] Comment on above: Please note: Triglyc eride levels of 600mg/dL or higher may positively bias chloride results by approximately 2.1 mmol CO2 [Moles/Vol] 24 mmol/L [facility] Creatinine [Mass/Vol] 0.5 mg/dL Low [facility] [employer] GFR/1.73 sq M predicted among blacks MDRD (S/P/Bld) [Vol rate/Area] mL/min/{1.73_m2} ml/min/1.73s q.m [facility] GFR/1.73 sq M predicted among non-blacks MDRD (S/P/Bld) [Vol rate/Area] Average GFR for 20-29 years old = 116. [employer] Comment on above: Chronic Kidney disea se, GFR = <60. Kidney failure, GFR = <15. The GFR estimate is not adjusted for extreme body surface area or acute process, nor has it been validated for women or ethnic groups other than and . GFR/1.73 sq M predicted among non-blacks MDRD (S/P/Bld) [Vol rate/Area] mL/min/{1.73_m2} ml/min/1.73s q.m [facility] Glucose post fast [Mass/Vol] 84 mg/dL [facility] [employer] Comment on above: NORMAL <100 mg/dL PREDIABETES 101-126 mg/dL DIABETES 126 mg/dL or higher Potassium [Moles/Vol] 3.6 mmol/L [facility] [employer] Sodium [Moles/Vol] 137 mmol/L [facility] [employer] Urea nitrogen [Mass/Vol] 10 mg/dL [facility] [employer] CBC, EDIF, PLATELETon 2018 ABSOLUTE BASOPHIL COUNT 0.0 X10 [facility] Basophils/100 WBC (Bld) 0.4 % 0 - 2 % [facility] [employer] Differential cell count method Nom (Bld) AUTO DIFF % [facility] Eosinophils (Bld) [#/Vol] 0.00 10*3/uL X10 [facility] Eosinophils/100 WBC (Bld) 0.7 % 0 - 11 % [facility] Erythrocyte distribution width (RBC) [Ratio] 13.8 % 11.5 - 14.5 % [facility] [employer] Hematocrit (Bld) [Volume fraction] 37.3 % 36 - 48 % [facility] [employer] Hemoglobin (Bld) [Mass/Vol] 12.9 g/dL [facility] Lymphocytes (Bld) [#/Vol] 1.60 10*3/uL X10 [facility] Lymphocytes/100 WBC (Bld) 33.9 % 20 - 55 % [facility] [employer] MCH (RBC) [Entitic mass] 29.1 pg 26 - 35 PG [facility] MCHC (RBC) [Mass/Vol] 34.5 g/dL [facility] [employer] MCV (RBC) [Entitic vol] 84.2 fL [facility] [employer] Monocytes (Bld) [#/Vol] 0.4 10*3/uL X10 [employer] Monocytes/100 WBC (Bld) 9.2 % 0 - 10 % [facility] [employer] Neutrophils (Bld) [#/Vol] 2.6 10*3/uL [employer] Neutrophils/100 WBC (Bld) 55.8 % 37 - 75 % [employer] Platelet mean volume (Bld) [Entitic vol] 6.7 fL Low [employer] Platelets (Bld) [#/Vol] 210 10*3/uL [employer] RBC (Bld) [#/Vol] 4.43 10*6/uL [employer] WBC (Bld) [#/Vol] 4.7 10*3/uL [facility] CT HEAD WITHOUT CONTRASTon 0 08-31-2018 CT [...] of the orbits and sinuses are intact. [employer] User, Interfaces - 08/31/2018 11:50 PM EDT [...] IMPRESSION IMPRESSION: Normal CT of the brain. [employer] IMPRESSION: Normal CT of the brain. [employer] MAGNESIUMon 08-31-2018 Magnesium [Mass/Vol] 1.9 mg/dL [employer] Otheron 08-31-2018 Interpretation and review of laboratory results Abnormal [employer] TOXICOLOGY DRUG SCREEN, URIN Irvin 08-31-2018 Amphetamine (U) [Mass/Vol] Negative NEGATIVE NG/ML [facility] Comment on above: <500 ng/ml [facility] Barbiturates Screen Ql (U) Negative NEGATIVE NG/ML [facility] Comment on above: <200 ng/ml [facility] Benzodiazepines Ql (U) Negative NEGAT THEA NG/ML [facility] Comment on above: <150 ng/ml [facility] Benzoylecgonine Ql (U) Negative NEGAT THEA NG/ML [facility] Comment on above: <150 ng/ml [facility] Buprenorphine Ql (U) Negative NEGATIV E NG/ML [facility] Comment on above: <10 ng/ml [facility] Cannabinoids Screen Ql (U) Negative NEGATIVE NG/ML [facility] Comment on above: <50 ng/ml [facility] Methadone Screen Ql (U) Negative NEGA TIVE NG/ML [facility] Comment on above: <200 ng/ml [facility] Methamphetamine (U) [Mass/Vol] Negative NEGATIVE NG/ML [facility] Comment on above: <500 ng/ml [facility] Opiates Screen Ql (U) Negative NEGATI VE NG/ML [facility] Comment on above: <100 ng/ml [facility] Oxycodone Ql (U) Negative NEGATIVE NG/ML [facility] Comment on above: <100 ng/ml [facility] Phencyclidine Screen method >25 ng/mL Ql (U) Negative NEGATIVE NG/ML [facility] Comment on above: <25 ng/ml [facility] Propoxyphene + Norpropoxyphene Screen Ql (U) Negative NEGATIVE NG/ML [facility] Comment on above: <300 ng/ml [facility] Tricyclic antidepressants Screen Ql (U) Negative NEGATIVE NG/ML [facility] Comment on above: <300 ng/ml [facility] Otheron 08-22-2018 Interpretation and review of laboratory results Abnormal [employer] T4 FREEon 08-22-2018 T4 free mass conc 1.01 ng/dL [facility] THYROID PROFILEon 08-22-2018 T3RU 20 % Low 24 - 39 % [employer] T4 free index Calculated mass conc 1.7 [facility] Comment on above: PERFORMED AT [facility] T4 mass conc 8.5 ug/dL 4.5 - 12 ug/dL [facility] TSHon 08-22-2018 Thyrotropin Qn 27.800 m[IU]/L High [employer] ABO/RH(D) TYPINGon 9 ABO and Rh group Nom (Bld ) Positive [facility] [employer] BETA HCG, QUANT, BLOODon HCG.beta subunit Qn 963527.00 m[IU]/mL MIU/ML [facility] [employer] Comment on above: [facility] [place]: NON FEMALE 0-6 MIU/ML MALE [...] ABSOLUTE BASOPHIL COUNT 0.0 X10 [facility] [employer] Basophils/100 WBC (Bld) 0.2 % 0 - 2 % [facility] [employer] Differential cell count method Nom (Bld) AUTO DIFF % [facility] [employer] Eosinophils #/vol (Bld) 0.00 10*3/uL X10 [facility] [employer] Eosinophils/100 WBC (Bld) 0.5 % 0 - 11 % [facility] [employer] Erythrocyte distribution width Ratio (RBC) 12.9 % 11.5 - 14.5 % [facility] [employer] Hematocrit Volume Fraction (Bld) 38.8 % 36 - 48 % [facility] [employer] Hemoglobin mass conc (Bld) 13.5 g/dL [facility] [employer] Lymphocytes #/vol (Bld) 1.50 10*3/uL X10 [facility] [employer] Lymphocytes/100 WBC (Bld) 29.7 % 20 - 55 % [facility] [employer] MCH Entitic mass (RBC) 29.4 pg 26 - [address] [facility] MCHC mass conc (RBC) 34.8 g/dL [facility] A [employer] MCV Entitic volume (RBC) 84.5 fL [facility] [employer] Monocytes #/vol (Bld) 0.4 10*3/uL X10 AV [...] on 08-12-2018 Chloride molar conc 106 mmol/L [facility] Comment on above: Please note: Triglyc eride levels of 600mg/dL or higher may positively bias chloride results by approximately 2.1 mmol CO2 molar conc 22 mmol/L [facility] Creatinine mass conc 0.5 mg/dL Low [facility] GFR/1.73 sq M predicted among blacks MDRD vol rate/area (S/P/Bld) mL/min/{1.73_m2} ml/min/1.73s q.m [facility] GFR/1.73 sq M predicted among non-blacks MDRD vol rate/area (S/P/Bld) mL/min/{1.73_m2} ml/min/1.73s q.m [facility] GFR/1.73 sq M predicted among non-blacks MDRD vol rate/area (S/P/Bld) Average GFR for 20-29 years old = 116. [employer] Comment on above: Chronic Kidney disea se, GFR = <60. Kidney failure, GFR = <15. The GFR estimate is not adjusted for extreme body surface area or acute process, nor has it been validated for women or ethnic groups other than and . Glucose fasting mass conc 108 mg/dL High [employer] Comment on above: NORMAL <100 mg/dL PREDIABETES 101-126 mg/dL DIABETES 126 mg/dL or higher Potassium molar conc 3.6 mmol/L [facility] Sodium molar conc 139 mmol/L [facility] Urea nitrogen mass conc 9 mg/dL [facility] Otheron 08-12-2018 Interpretation and review of laboratory results Abnormal [facility] Interpretation and review of laboratory results Abnormal [facility] URINALYSIS, MACROon 08-13-19 19 Bilirubin Ql (U) Negative NEGATIVE [facility] Clarity Nom (U) CLEAR CLEAR [facility] Color Nom (U) YELLOW YELLOW [facility] Glucose Test strip mass conc (U) Negative NEGATIVE mg/dl [facility] Hemoglobin Ql (U) Negative NEGATIVE [facility] Ketones mass conc (U) 15 mg/dl Abnormal NEGATIVE [facility] Leukocyte esterase Test strip Ql (U) TRACE Abnormal NEGATIVE [facility] Nitrite Ql (U) Negative NEGATIVE [facility] pH (U) 7.0 [pH] [facility] Protein Ql (U) Negative NEGATIVE mg/dl [facility] Specific gravity Relative Density (U) 1.010 [facility] Urobilinogen mass conc (U) 0.2 mg/dl 0.2 - 1 mg/dl [facility] URINE MICROSCOPICon 08-13-19 19 Bacteria LM.HPF #/area (Urine sed) TRACE Abnormal NEGATIVE [facility] Casts LM.LPF #/area (Urine sed) NONE NONE /LPF [facility] Crystals LM Nom (Urine sed) NONE NONE [facility] Epithelial cells LM Ql (Urine sed) 10 TO 20 /HPF [facility] Mucus Ql (Urine sed) Negative NEGATIVE [facility] RBC LM.HPF #/area (Urine sed) Negative NEGATIVE /HPF [facility] Urine sediment comments LM Hung (Urine sed) POSSIBLY CONTAMINATED SPECIMEN, CULTURE MUST BE ORDERED SEPARATELY IF DEEMED NECESSARY. [facility] WBC LM.HPF #/area (Urine sed) 1 TO 5 NEGATIVE /HPF [facility] Vital Signs Date Time Vital Sign Value Performing Clinician Faci lity 02-03-2022 14:15-0400 Body height 160 cm Diamond Garay MD Work Phone: [facility] 02-03-2022 14:15-0400 Body mass index (BMI) [Ratio] 26.85 kg/m2 Diamond Garay MD Work Phone: [facility] 02-03-2022 14:15-0400 Body weight 68.77 kg Diamond Garay MD Work Phone: [facility] 02-03-2022 14:15-0400 Diastolic blood pressure 70 mm[Hg] Diamond Garay MD Work Phone: [facility] 02-03-2022 14:15-0400 Heart rate 94 /min Diamond Garay MD Work Phone: [facility] 02-03-2022 14:15-0400 Respiratory rate 16 /min Diamond Garay MD Work Phone: [facility] 02-03-2022 14:15-0400 SaO2% (BldA) [Mass fraction] 99 % Diamond Garay MD Work Phone: [facility] 02-03-2022 14:15-0400 Systolic blood pressure 107 mm[Hg] Diamond Garay MD Work Phone: [facility] 01-29-2022 14:41-0400 Diastolic blood pressure 88 mm[Hg] Arlene Titus MD Work Phone: [facility] 01-29-2022 14:41-0400 Heart rate 86 /min Arlene Titus MD Work Phone: [facility] 01-29-2022 14:41-0400 Respiratory rate 18 /min Arlene Titus MD Work Phone: [facility] 01-29-2022 14:41-0400 SaO2% (BldA) [Mass fraction] 100 % Arlene Titus MD Work Phone: [facility] 01-29-2022 14:41-0400 Systolic blood pressure 140 mm[Hg] Arlene Titus MD Work Phone: [facility] 01-29-2022 13:01-0400 Body temperature 97.2 [degF] Arlene Titus MD Work Phone: [facility] 12-09-2021 14:23-0400 Body height 160 cm Marylin Brink MD Work Phone: [facility] 12-09-2021 14:23-0400 Body mass index (BMI) [Ratio] 24.8 kg/m2 Marylin Brink MD Work Phone: [facility] 12-09-2021 14:23-0400 Body weight 63.5 kg Marylin Brink MD Work Phone: [facility] 12-09-2021 14:23-0400 Respiratory rate 16 /min Marylin Brink MD Work Phone: [facility] 12-03-2021 09:57-0400 Body height 160 cm Marylin Brink MD Work Phone: [facility] 12-03-2021 09:57-0400 Body mass index (BMI) [Ratio] 24.8 kg/m2 Marylin Brink MD Work Phone: [facility] 12-03-2021 09:57-0400 Body weight 63.5 kg Marylin Brink MD Work Phone: [facility] 12-03-2021 09:57-0400 Respiratory rate 16 /min Marylin Brink MD Work Phone: [facility] 12-01-2021 12:27-0400 Body height 160 cm Marylin Brink MD Work Phone: [facility] 12-01-2021 12:27-0400 Body mass index (BMI) [Ratio] 24.8 kg/m2 Marylin Brink MD Work Phone: [facility] 12-01-2021 12:27-0400 Body weight 63.5 kg Marylin Brink MD Work Phone: [facility] 12-01-2021 12:27-0400 Respiratory rate 16 /min Marylin Brink MD Work Phone: [facility] 11-12-2021 10:13-0400 Body height 160 cm Marylin Brink MD Work Phone: [facility] 11-12-2021 10:13-0400 Body mass index (BMI) [Ratio] 24.8 kg/m2 Marylin Brink MD Work Phone: [facility] 11-12-2021 10:13-0400 Body weight 63.5 kg Marylin Brink MD Work Phone: [facility] 11-12-2021 10:13-0400 Respiratory rate 16 /min Marylin Brink MD Work Phone: [facility] 10-11-2021 13:40-0400 Body height 160 cm Antoine Sow MD Work Phone: [facility] 10-11-2021 13:39-0400 Body temperature 97.9 [degF] Antoine Sow MD Work Phone: [facility] 10-11-2021 13:39-0400 Diastolic blood pressure 84 mm[Hg] Antoine Sow MD Work Phone: [facility] 10-11-2021 13:39-0400 Heart rate 96 /min Antoine Sow MD Work Phone: [facility] 10-11-2021 13:39-0400 Respiratory rate 17 /min Antoine Sow MD Work Phone: [facility] 10-11-2021 13:39-0400 SaO2% (BldA) [Mass fraction] 97 % Antoine Sow MD Work Phone: [facility] 10-11-2021 13:39-0400 Systolic blood pressure 134 mm[Hg] Antoine Sow MD Work Phone: [facility] 10-11-2021 12:59-0400 Body mass index (BMI) [Ratio] 23.56 kg/m2 Elias Dubon PA-C Work Phone: [facility] 10-11-2021 12:59-0400 Body temperature 97.2 [degF] Elias Dubon PA-C Work Phone: [facility] 10-11-2021 12:59-0400 Body weight 60.33 kg Elias Dubon PA-C Work Phone: [facility] 10-11-2021 12:59-0400 Diastolic blood pressure 81 mm[Hg] Elias Dubon PA-C Work Phone: [facility] 10-11-2021 12:59-0400 Heart rate 87 /min Elias Dubon PA-C Work Phone: [facility] 10-11-2021 12:59-0400 Respiratory rate 18 /min Elias Dubon PA-C Work Phone: [facility] 10-11-2021 12:59-0400 SaO2% (BldA) [Mass fraction] 98 % Elias Dubon PA-C Work Phone: [facility] 10-11-2021 12:59-0400 Systolic blood pressure 115 mm[Hg] Elias Dubon PA-C Work Phone: [facility] 08-20-2021 14:02-0400 Body height 160 cm [place] Arnold PA-C Work Phone: [facility] [facility]2021 14:02-0400 Body mass index (BMI) [Ratio] 23.61 kg/m2 [place] Arnold PA-C Work Phone: [facility] 08-20-2021 14:02-0400 Body temperature 98.49 [degF] Lisbeth Arnold PA-C Work Phone: [facility] 08-20-2021 14:02-0400 Body weight 60.46 kg [place] Arnold PA-C Work Phone: [facility] 08-20-2021 14:02-0400 Diastolic blood pressure 77 mm[Hg] Lisbeth Arnold PA-C Work Phone: [facility] 08-20-2021 14:02-0400 Heart rate 82 /min [place] Arnold PA-C Work Phone: [facility] 08-20-2021 14:02-0400 Respiratory rate 17 /min Lisbeth Louis PA-C Work Phone: [facility] 08-20-2021 14:02-0400 SaO2% (BldA) [Mass fraction] 96 % Lisbeth Louis PA-C Work Phone: [facility] 08-20-2021 14:02-0400 Systolic blood pressure 113 mm[Hg] Lisbeth Louis PA-C Work Phone: [facility] 05-30-2021 17:00-0500 Diastolic blood pressure 72 mm[Hg] Zelalem Pay DO Work Phone: [facility] [facility] 05-30-2021 17:00-0500 Heart rate 84 /min Zelalem Pay DO Work Phone: [facility] [facility] 05-30-2021 17:00-0500 SaO2% (BldA) [Mass fraction] 100 % Zelalem Pay DO Work Phone: [facility] [facility] 05-30-2021 17:00-0500 Systolic blood pressure 113 mm[Hg] Zelalem Pay DO Work Phone: [facility] [employer] [facility] 05-30-2021 16:08-0500 Body height 160 cm Zelalem Pay DO Work Phone: [facility] 05-30-2021 16:07-0500 Body temperature 98.4 [degF] Zelalem Pay DO Work Phone: [facility] 05-30-2021 16:07-0500 Respiratory rate 17 /min Zelalem Pay DO Work Phone: [facility] 04-01-2021 08:39-0500 Body height 160 cm Mary Ellen Velascoamber PAID INTERNSHIP-LPN MEDICAL ASSISTANT Work Phone: [facility] 04-01-2021 08:39-0500 Body mass index (BMI) [Ratio] 23.7 kg/m2 Mary Ellen Velascoamber PAID INTERNSHIP-LPN MEDICAL ASSISTANT Work Phone: [employer] [facility] 04-01-2021 08:39-0500 Body weight 60.69 kg Mary Ellen Valles PAID INTERNSHIP-LPN MEDICAL ASSISTANT Work Phone: [facility] [employer] [facility] 04-01-2021 08:39-0500 Diastolic blood pressure 93 mm[Hg] Mary Ellen Valles PAID INTERNSHIP-LPN MEDICAL ASSISTANT Work Phone: [facility] 04-01-2021 08:39-0500 Heart rate 84 /min Mary Ellen Velascoker PAID INTERNSHIP-LPN MEDICAL ASSISTANT Work Phone: [facility] 04-01-2021 08:39-0500 Respiratory rate 18 /min Mary Ellen Velascoker PAID INTERNSHIP-LPN MEDICAL ASSISTANT Work Phone: [facility] 04-01-2021 08:39-0500 Systolic blood pressure 132 mm[Hg] Mary Ellen Valles PAID INTERNSHIP-LPN MEDICAL ASSISTANT Work Phone: [facility] 02-21-2021 13:13-0400 Body temperature 98.6 [degF] Chio Blanco CNP Work Phone: [facility] 02-21-2021 13:13-0400 Heart rate 97 /min Chio Blanco LPN MEDICAL ASSISTANT Work Phone: [facility] 02-21-2021 13:13-0400 SaO2% (BldA) [Mass fraction] 96 % Chio Blanco LPN MEDICAL ASSISTANT Work Phone: [facility] 01-09-2021 14:45-0400 Diastolic blood pressure 76 mm[Hg] Jaxon Weston MD Work Phone: [facility] 01-09-2021 14:45-0400 Heart rate 68 /min Jaxon Weston MD Work Phone: [facility] 01-09-2021 14:45-0400 Respiratory rate 17 /min Jaxon Weston MD Work Phone: [facility] 01-09-2021 14:45-0400 SaO2% (BldA) [Mass fraction] 99 % Jaxon Wesotn MD Work Phone: [facility] 01-09-2021 14:45-0400 Systolic blood pressure 115 mm[Hg] Jaxon Weston MD Work Phone: [facility] 01-09-2021 12:48-0400 Body temperature 98.1 [degF] Jaxon Weston MD Work Phone: [facility] 01-05-2021 10:43-0400 Body temperature 98.49 [degF] Tabbitha Adela LPN MEDICAL ASSISTANT Work Phone: [facility] 01-05-2021 10:43-0400 Body weight 53.07 kg Tabbitha Adela LPN MEDICAL ASSISTANT Work Phone: [facility] 01-05-2021 10:43-0400 Diastolic blood pressure 75 mm[Hg] Tabbitha Adela LPN MEDICAL ASSISTANT Work Phone: [facility] 01-05-2021 10:43-0400 Heart rate 77 /min Tabbitha Adela LPN MEDICAL ASSISTANT Work Phone: [facility] 01-05-2021 10:43-0400 Respiratory rate 16 /min Tabbitha Adela LPN MEDICAL ASSISTANT Work Phone: [facility] 01-05-2021 10:43-0400 SaO2% (BldA) [Mass fraction] 99 % Tabscottyha Adela LPN MEDICAL ASSISTANT Work Phone: [facility] 01-05-2021 10:43-0400 Systolic blood pressure 108 mm[Hg] Tabbitha Adela LPN MEDICAL ASSISTANT Work Phone: [facility] 05-12-2020 21:32-0500 Body Temperature 97.5 [degF] [facility] 05-12-2020 21:32-0500 BP Diastolic 85 mm[Hg] [facility] 05-12-2020 21:32-0500 BP Systolic 120 mm[Hg] [facility] 05-12-2020 21:32-0500 Pulse (Heart Rate) 82 /min [facility] 05-12-2020 21:32-0500 Pulse Oximetry 97 % [facility] 05-12-2020 21:32-0500 Respiratory Rate 16 /min Rubin Troncoso [facility] 01-12-2020 22:16-0400 BMI (Body Mass Index) 21.26 kg/m2 [facility] 01-12-2020 22:16-0400 Body weight 54.43 kg [facility] 01-12-2020 22:15-0400 Body Temperature 97.2 [degF] [facility] 01-12-2020 22:15-0400 BP Diastolic 97 mm[Hg] [facility] 01-12-2020 22:15-0400 BP Systolic 138 mm[Hg] [facility] 01-12-2020 22:15-0400 Pulse (Heart Rate) 97 /min [facility] 01-12-2020 22:15-0400 Pulse Oximetry 94 % [facility] 01-12-2020 22:15-0400 Respiratory Rate 18 /min [facility] 01-10-2020 14:21-0400 Body Temperature 98.6 [degF] [facility] 12-26-2019 11:40-0400 BP Diastolic 62 mm[Hg] [facility] 12-26-2019 11:40-0400 BP Systolic 111 mm[Hg] [facility] 12-26-2019 11:40-0400 Pulse (Heart Rate) 71 /min [facility] 12-26-2019 11:40-0400 Pulse Oximetry 100 % [facility] 12-26-2019 11:40-0400 Respiratory Rate 16 /min [facility] 12-26-2019 10:46-0400 Body Temperature 98.1 [degF] [facility] 12-26-2019 08:21-0400 Height 160 cm [facility] 12-15-2019 15:29-0400 Body Temperature 98.2 [degF] [facility] 12-15-2019 15:29-0400 BP Diastolic 86 mm[Hg] [facility] 12-15-2019 15:29-0400 BP Systolic 131 mm[Hg] [facility] 12-15-2019 15:29-0400 Height 160 cm [facility] 12-15-2019 15:29-0400 Pulse (Heart Rate) 90 /min [facility] 12-15-2019 15:29-0400 Pulse Oximetry 98 % [facility] 12-15-2019 15:29-0400 Respiratory Rate 16 /min [facility] 10-16-2019 17:39-0400 Body Temperature 99.1 [degF] [facility] 10-16-2019 17:39-0400 BP Diastolic 73 mm[Hg] [facility] 10-16-2019 17:39-0400 BP Systolic 116 mm[Hg] [facility] 10-16-2019 17:39-0400 Pulse (Heart Rate) 87 /min [facility] 10-16-2019 17:39-0400 Pulse Oximetry 96 % [facility] 10-16-2019 17:39-0400 Respiratory Rate 16 /min [facility] 10-04-2019 22:23-0400 BMI (Body Mass Index) 21.26 kg/m2 [facility] 10-04-2019 22:23-0400 Body weight 54.43 kg [facility] 10-04-2019 22:21-0400 Body Temperature 98.71 [degF] [facility] 10-04-2019 22:21-0400 BP Diastolic 76 mm[Hg] [facility] 10-04-2019 22:21-0400 BP Systolic 114 mm[Hg] [facility] 10-04-2019 22:21-0400 Pulse (Heart Rate) 88 /min [facility] 10-04-2019 22:21-0400 Pulse Oximetry 97 % [facility] 10-04-2019 22:21-0400 Respiratory Rate 15 /min [facility] 08-14-2019 10:15-0400 Height 160 cm [facility] 08-14-2019 10:14-0400 Body Temperature 98.1 [degF] [facility] 08-14-2019 10:14-0400 BP Diastolic 70 mm[Hg] [facility] 08-14-2019 10:14-0400 BP Systolic 129 mm[Hg] [facility] 08-14-2019 10:14-0400 Pulse (Heart Rate) 82 /min [facility] 08-14-2019 10:14-0400 Pulse Oximetry 98 % [facility] 08-14-2019 10:14-0400 Respiratory Rate 16 /min [facility] 05-31-2019 17:22-0500 Height 160 cm [facility] 05-31-2019 17:21-0500 Body Temperature 98.29 [degF] [facility] 05-31-2019 17:21-0500 BP Diastolic 74 mm[Hg] [facility] 05-31-2019 17:21-0500 BP Systolic 119 mm[Hg] [facility] 05-31-2019 17:21-0500 Pulse (Heart Rate) 92 /min [facility] 05-31-2019 17:21-0500 Pulse Oximetry 98 % [facility] 05-31-2019 17:21-0500 Respiratory Rate 16 /min [facility] 05-13-2019 13:26-0500 Height 160 cm [facility] 05-13-2019 13:23-0500 Body Temperature 98.49 [degF] [facility] 05-13-2019 13:23-0500 BP Diastolic 70 mm[Hg] [facility] 05-13-2019 13:23-0500 BP Systolic 120 mm[Hg] [facility] 05-13-2019 13:23-0500 Pulse (Heart Rate) 96 /min [facility] 05-13-2019 13:23-0500 Pulse Oximetry 98 % [facility] 05-13-2019 13:23-0500 Respiratory Rate 14 /min [facility] 09-16-2018 14:06-0400 BP Diastolic 80 mm[Hg] [facility] [employer] [facility] 09-16-2018 14:06-0400 BP Systolic 120 mm[Hg] [facility] 09-16-2018 14:06-0400 Pulse (Heart Rate) 90 /min [facility] 09-16-2018 14:06-0400 Respiratory Rate 16 /min [facility] 09-16-2018 13:30-0400 Height 160 cm [facility] 09-16-2018 13:28-0400 Body Temperature 98.01 [degF] [facility] 09-16-2018 13:28-0400 Pulse Oximetry 98 % [facility] 08-31-2018 23:41-0400 BP Diastolic 67 mm[Hg] [facility] 08-31-2018 23:41-0400 BP Systolic 108 mm[Hg] [facility] 08-31-2018 23:41-0400 Pulse (Heart Rate) 88 /min [facility] 08-31-2018 23:41-0400 Pulse Oximetry 97 % [facility] 08-31-2018 23:41-0400 Respiratory Rate 16 /min [facility] [employer] [facility] 08-31-2018 22:35-0400 Body weight 56.7 kg [facility] 08-31-2018 22:34-0400 Body Temperature 98.2 [degF] [facility] 08-12-2018 16:00-0400 BP Diastolic 69 mm[Hg] [facility] 08-12-2018 16:00-0400 BP Systolic 109 mm[Hg] [facility] 08-12-2018 16:00-0400 Pulse (Heart Rate) 90 /min [facility] 08-12-2018 16:00-0400 Pulse Oximetry 96 % [facility] 08-12-2018 16:00-0400 Respiratory Rate 18 /min [facility] 08-12-2018 14:27-0400 Body Temperature 98.29 [degF] [facility] Encounters Encounter Date Encounter Type Care Provider Facility Start: 01-11-2024 End: 01-11-2024 ambulatory CHELLY [place] Not Available Start: 01-03-2024 End: 01-03-2024 ambulatory NON STAFF [facility] Work Phone: Start: 01-03-2024 End: 01-03-2024 Departed Referred CLINICAL SUPERVISOR-C Tasha Spasic Work Phone: [facility] Start: 12-13-2023 End: 12-13-2023 ambulatory CHELLY [place] Not Available Start: 11-17-2023 ambulatory Jim Read acility:[facility] Start: 11-17-2023 Registered Recurring CLINICAL SUPERVISOR-C Ruben a Spasic Work Phone: [facility] Start: 11-14-2023 End: 11-14-2023 Patient encounter procedure [place] [facility] Start: 11-14-2023 End: 11-14-2023 ambulatory WHNP [place] Facility:[facility] Start: 11-01-2023 End: 11-01-2023 ambulatory CHELLY [place] Not Available Start: 10-27-2023 End: 10-27-2023 ambulatory NON STAFF [facility] Work Phone: Start: 10-27-2023 End: 10-27-2023 Departed Referred CLINICAL SUPERVISOR-C Tasha Spasic Work Phone: [facility] Start: 09-01-2023 End: 09-01-2023 ambulatory Tasha E Spasic [facility] Work Phone: Start: 09-01-2023 End: 09-01-2023 Departed Referred CLINICAL SUPERVISOR-C Tasha Spasic Work Phone: [facility] Start: 06-09-2023 End: 06-09-2023 ambulatory Tasha E Spasic Facility:[facility] Start: 06-09-2023 End: 06-09-2023 ambulatory Tasha Mehta [facility] Work Phone: Start: 06-09-2023 End: 06-09-2023 Departed Referred CLINICAL SUPERVISOR-C Tasha Mehta Work Phone: [facility] Start: 01-06-2023 End: 01-06-2023 Patient encounter procedure Services [facility] Work Phone: [facility] [place] Work Phone: Start: 01-06-2023 End: 01-06-2023 ambulatory Services [facility] Work Phone: [facility] Work Phone: Start: 02-15-2022 ambulatory [facility] Start: 02-12-2022 ambulatory [facility] Start: 02-03-2022 ambulatory [facility] Start: 02-03-2022 End: 02-03-2022 Office outpatient visit 15 minutes Diamond Garay MD Work Phone: [facility] Comment on above: Facet arthropathy (P rimary Dx); Myofascial pain; Chronic pain syndrome; Sacroiliitis; Right hip pain Start: 01-29-2022 [facility] Start: 01-29-2022 End: 01-29-2022 Patient encounter procedure Arlene Titus MD Work Phone: [facility] Comment on above: Lumbar spondylosis ( Primary Dx) Start: 01-29-2022 End: 01-29-2022 Subsequent hospital visit by physician Arlene Titus MD Work Phone: [facility] Comment on above: Arrived Start: 01-24-2022 End: 01-24-2022 [facility] Start: [facility]-23[facility] Start: 01-23-2022 End: 01-23-2022 Subsequent hospital visit by physician Tasha Mehta MD Work Phone: [facility] Start: 01-05-2022 ambulatory ARLENE Edwards [facility] Start: 12-28-2021 ambulatory [facility] Start: 12-28-2021 End: 12-28-2021 Subsequent hospital visit by physician Marylin Brink MD Work Phone: [facility] [place] [facility] Comment on above: Arrived Start: 12-09-[address] 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 Start: 12-04-[address] [facility] Start: 12-04-2021 End: 12-04-2021 Subsequent hospital visit by physician Marylin Brink MD Work Phone: [facility] Comment on above: Arrived Start: 12-03-[address] [facility] Start: 12-03-[address] [facility] Start: 12-03-2021 End: 12-03-2021 Office outpatient visit 25 minutes Marylin Brink MD Work Phone: [facility] Comment on above: Closed fracture of s acrum and coccyx, initial encounter (Primary Dx) Start: 12-01-2021 ambulatory TASHA JANINE [facility] Start: 12-01-[address] [facility] Start: 12-01-2021 End: 12-01-2021 Office outpatient visit 25 minutes Marylin Brink MD Work Phone: [facility] Comment on above: Closed fracture of s acrum and coccyx, initial encounter Start: 11-27-2021 ambulatory [facility] Start: 11-25-2021 ambulatory [facility] Start: 11-25-2021 End: 11-25-2021 Subsequent hospital visit by physician Marylin Brink MD Work Phone: [facility] [place] [facility] Comment on above: Arrived Start: 11-25-2021 End: 11-25-2021 Office outpatient visit 25 minutes Marylin Brink MD Work Phone: [facility] Comment on above: Closed fracture of s acrum and coccyx, initial encounter (Primary Dx) Start: 11-16-[address] [facility] Start: 11-12-[address] [facility] Start: 11-12-2021 End: 11-12-2021 Office outpatient new 45 minutes Marylin Brink MD Work Phone: [facility] Comment on above: Acute pain of right shoulder (Primary Dx); Closed fracture of sacrum and coccyx, initial encounter; Smoker Start: 10-28-2021 End: 10-28-2021 Emergency department patient visit [facility] Start: 10-20-2021 ambulatory [facility] Start: 10-14-2021 ambulatory [facility] Start: 10-14-2021 End: 10-14-2021 Subsequent hospital visit by physician Tasha Mehta MD Work Phone: [facility] Comment on above: Arrived Start: 10-11-2021 End: 10-11-2021 Emergency department patient visit [facility] Start: 10-11-2021 End: 10-11-2021 [facility] Start: 10-11-2021 End: 10-11-2021 Emergency department patient visit Antoine Sow MD Work Phone: [facility] Start: 10-11-2021 End: 10-11-2021 Patient encounter procedure Elias Dubon PA-C Work Phone: [facility] Comment on above: Acute midline low ba ck pain without sciatica (Primary Dx); Left lower quadrant abdominal pain; Right hip pain Start: 08-24-2021 End: 08-24-2021 ambulatory [facility] Start: 08-22-2021 Orders Only Lisbeth lynne PA-C Work Phone: [facility] Comment on above: Acute cystitis witho ut hematuria (Primary Dx) Start: 08-20-2021 End: 08-20-2021 ambulatory [facility] Start: 08-20-2021 End: 08-20-2021 Office outpatient new 45 minutes Lisbeth Louis PA-C Work Phone: [facility] Comment on above: Dysuria (Primary Dx) Start: 07-23-2021 ambulatory [facility] Start: 05-30-2021 End: 05-30-2021 Emergency department patient visit [facility] Start: 05-30-2021 End: 05-30-2021 Emergency department patient visit Zelalem Hampton DO Work Phone: [facility] Start: 04-22-2021 End: 04-22-2021 [facility] Start: 04-01-2021 End: 04-01-2021 Office outpatient visit 15 minutes Mary Ellen Valles PAID INTERNSHIP-LPN MEDICAL ASSISTANT Work Phone: [facility] Comment on above: Medication monitorin g encounter (Primary Dx); Lumbar radiculopathy; Chronic pain syndrome Start: 02-21-2021 End: 02-21-2021 ambulatory [facility] Start: 02-21-2021 End: 02-21-2021 Office outpatient visit 15 minutes Chio Blanco LPN MEDICAL ASSISTANT Work Phone: [facility] [place] Comment on above: Viral illness (Prima ry Dx); Exposure to 2019 novel coronavirus Start: 01-09-2021 End: 01-09-2021 Emergency department patient visit Jaxon Weston MD Work Phone: [facility] [place] [facility] Start: 01-05-2021 End: 01-05-2021 ambulatory TASHA RO [facility] Start: 01-05-2021 End: 01-05-2021 Office outpatient new 30 minutes Chio Blanco LPN MEDICAL ASSISTANT Work Phone: [facility] [place] Comment on above: Ingrown toenail of l eft foot with infection (Primary Dx); Flank pain Start: 07-18-2020 End: 07-18-2020 Subsequent hospital visit by physician Tasha Mehta Work Phone: [facility] [place] [facility] Comment on above: Arrived Start: 05-12-2020 End: 05-12-2020 Emergency department patient visit Rubin Troncoso Work Phone: [facility] Start: 01-12-2020 End: 01-12-2020 Emergency department patient visit Eliselamine Fisher Magdiel Work Phone: [facility] Start: 01-10-2020 End: 01-10-2020 Postop follow up visit related to original px Bruno Thompson Work Phone: [facility] Comment on above: Encounter for postop erative care (Primary Dx) Start: 12-26-2019 End: 12-26-2019 Subsequent hospital visit by physician Bruno Thompson Work Phone: [facility] Comment on above: Soft tissue mass Start: 12-15-2019 End: 12-15-2019 Emergency department patient visit Uli Bejarano Work Phone: [facility] Start: 12-13-2019 End: 12-13-2019 Office consultation new/estab patient 60 min Bruno Thompson Work Phone: [facility] Comment on above: Soft tissue mass (Pr imary Dx); Preoperative clearance Start: 10-16-2019 End: 10-16-2019 Emergency department patient visit Rubin Troncoso Work Phone: [facility] Start: 10-04-2019 End: 10-04-2019 Emergency department patient visit Kash Escalante Work Phone: [facility] Start: 08-14-2019 End: 08-14-2019 Emergency department patient visit Rubin Troncoso Work Phone: [facility] Start: 05-31-2019 End: 05-31-2019 Emergency department patient visit Micheline Veloz Work Phone: [facility] Start: 05-13-2019 End: 05-13-2019 Emergency department patient visit Rubin Troncoso Work Phone: [facility] Start: 02-05-2019 End: 02-05-2019 Outside Orders Historical Provider [facility] Start: 10-03-2018 End: 10-03-2018 Outside Orders Historical Provider [facility] Start: 09-16-2018 End: 09-16-2018 Emergency department patient visit Rubin Troncoso Work Phone: [facility] Start: 08-31-2018 End: 09-01-2018 Emergency department patient visit Micheline Veloz Work Phone: [facility] Start: 08-22-2018 End: 08-22-2018 Patient encounter procedure Historical Provider [facility] Start: 08-12-2018 End: 08-12-2018 Emergency department patient visit Adan Mueller Work Phone: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 injury. documented in this encounter [facility] 10-11-2021 Emergency department Note Pt asking for Zofran for increased nausea and Neurontin for increased pain. Dr Sow updated. [facility] 10-11-2021 Emergency department Note Pt asking for [...] AXILLARY 12/26/2019 Surgeon: Bruno Thompson DO; Location: [facility] OR TREATMENT INDUCED W/ DILATION & EVACUATION [...] YELLOW YELLOW APPEARANCE, URINE CLEAR CLEAR Specific [place], Urine 1.020 1.010 - 1.025 PH URINE [...] information. . Antoine Sow MD 10/11/21 1451 documented in this encounter [facility] 10-11-2021 Physician Emergency department Note Emergency Department Report [facility] Service Date:.10/11/21 PCP: Tasha Mehta [...] AXILLARY 12/26/2019 Surgeon: Bruno Thompson DO; Location: [facility] OR TREATMENT INDUCED W/ DILATION & EVACUATION [...] months. Sexual activity: Not on file Comment: [facility] 12/17/19 Other Topics Concern Not [...] YELLOW YELLOW APPEARANCE, URINE CLEAR CLEAR Specific [place], Urine 1.020 1.010 - 1.025 PH URINE [...] information. . Antoine Sow MD 10/11/21 1452 [facility] 10-11-2021 History of Present illness Narrative Images from the original note were not included. [facility] Brief Evaluation Form Patient Name: [facility] Location: Herminio Simon [address] [facility] [address] Date Of : Date Of Visit: 1995 10/11/2021 MRN# Provider: [id number] Eliasgarcia Dubon PA-C SUBJECTIVE Herminio Simon [facility] with [facility] Pain (1 day. Lower back [...] decided we will send her to the [place] emergency department for evaluation particularly of the [...] Patient is being recommended to go to [place] emergency department for further evaluation and treatment. [...] for this visit. documented in this encounter [facility] 08-20-2021 History of Present illness Narrative Images from the original note were not included. Patient Name: [facility] Location: [place] [address] [facility] [address] Date Of : Date Of Visit: 1995 08/20/2021 MRN# Provider: [id number] Lisbeth Louis PA-C Chief Complaint Patient presents [...] for this visit. documented in this encounter [facility] 05-30-[address] Hampton in [...] AXILLARY 12/26/2019 Surgeon: Bruno Thompson DO; Location: [facility] OR TREATMENT INDUCED W/ DILATION & EVACUATION [...] Hampton DO 05/30/211801 documented in this encounter [facility] 05-30-2021 Hospital Discharge instructions Zelalem Hampton DO - 05/30/2021 Use MiraLAX daily or every other day to have more normal consistency to bowel movement. If constipation gets really bad, use cuhc-rop-rrnooel magnesium citrate bottle or mineral oil bottle. Take antacid medication daily, given referred to GI physician as well. Follow-up with PCP, increase fluids. The following attachments cannot be sent through Care Everywhere.High Fiber Diet ([facility]) (Surinamese)Constipation (Surinamese)Abdominal Pain (Surinamese)Gastritis (Surinamese)Nausea and Vomiting (Surinamese)documented in this encounter [facility] 04-01-2021 History of Present illness Narrative NEW [...] therapy, Lumbar Trigger Point Injections x3 in [facility]. The patient does not report [...] medications for this visit. DIAGNOSTIC TESTING: See [facility], Care Everywhere, or Media for results [...] recommended videos for you to watch on ShotSpotter.[employer] - This was attached to the after [...] She is asking for a prescription for Tullos. Discussed that we will proceed with NSAID [...] your patient. Sincerely, Mary Ellen Valles APRN LEAK OPERATOR [employer] Nurse Note: Review of Systems Constitutional: Positive [...] therapy, Lumbar Trigger Point Injections x3 in [facility]. The patient does not report [...] Ellen Valles NP. documented in this encounter [facility] 04-01-2021 Instructions Keenan Fallon RN - 04/01/2021 8:30 AM EST Physical Therapy (*offers Aquatic therapy) [place] -- [facility] * [facility] * [address] [place] [phone] [facility] * [address] through [facility] [place], [place] [address] [phone] Ext 268 [facility] [address] [place] [address] [place], [place] [phone] documented in this encounter [facility] 02-21-2021 History of Present illness Narrative Images from the original note were not included. Patient Name: [facility] Location: Herminio [place] [address] [facility] [address] Date Of : Date Of Visit: 1995 02/21/2021 MRN# Provider: [id number] Chio Blanco CNP Chief Complaint Patient presents with Cough [...] rest if you feel tired. Take an lgvh-pgx-jgwztmo pain medicine if needed, such as acetaminophen (Tylenol), ibuprofen (Advil, Motrin), or naproxen (Aleve). Read and follow all instructions on the label. Be careful when taking tfly-lvx-ccgulfh cold or flu medicines and Tylenol at [...] Log into your personal health record on [email or web address] and enter L906 in the Education box to learn more about Viral Infections: Care Instructions. Current as of: November 20, 2020 Content Version: 13.0 DocumentCloud. Care instructions adapted under license by your healthcare professional. If you have questions about a medical condition or this instruction, always ask your healthcare professional. DocumentCloud disclaims any warranty or liability for your use of this information. documented in this encounter [facility] 02-21-2021 Instructions Chio Blanco CNP - 02/21/2021 [...] rest if you feel tired. Take an vkhx-oah-trqbtrd pain medicine if needed, such as acetaminophen (Tylenol), ibuprofen (Advil, Motrin), or naproxen (Aleve). Read and follow all instructions on the label. Be careful when taking fbvq-ntn-ekzxmid cold or flu medicines and Tylenol at [...] Log into your personal health record on [email or web address] and enter L906 in the Education box to learn more about Viral Infections: Care Instructions. Current as of: November 20, 2020 Content Version: 13.0 DocumentCloud. Care instructions adapted under license by your healthcare professional. If you have questions about a medical condition or this instruction, always ask your healthcare professional. DocumentCloud disclaims any warranty or liability for your use of this information. documented in this encounter [facility] 01-09-2021 Emergency department Note Emergency Department Report [facility] [...] AXILLARY 12/26/2019 Surgeon: Bruno Thompson DO; Location: [facility] OR TREATMENT INDUCED W/ DILATION & EVACUATION [...] by mouth Every 6 hours as needed. JUNE06/11 1-20 MG-MCG TABLET LEVOTHYROXINE 75 MCG TAB [...] Social Gatherings with Friends and Family: Attends Synagogue Services: Active Member of Clubs or Organizations: [...] MD 01/09/21 1414 documented in this encounter [facility] 01-05-2021 Instructions Chio Blanco CNP - 01/05/2021 11:25 AM EDT Images from [...] more? Log into your personal health record on?[email or web address]://[email or web address].co m?and enter?R135?in the Education box to learn more about Ingrown Toenail: Care Instructions. Current as of: July 23, 2020 Content Version: 12.9 DocumentCloud. Care instructions adapted under license by your healthcare professional. If you have questions about a medical condition or this instruction, always ask your healthcare professional. DocumentCloud disclaims any warranty or liability for your [...] your doctor if you can take an etnr-osu-yqaesda pain medicine, such as acetaminophen (Tylenol), ibuprofen [...] more? Log into your personal health record on?[email or web address] m?and enter?S191?in the Education box to learn more about Flank Pain: Care Instructions. Current as of: March 10, 2020 Content Version: 12.9 DocumentCloud. Care instructions adapted under license by your healthcare professional. If you have questions about a medical condition or this instruction, always ask your healthcare professional. DocumentCloud disclaims any warranty or liability for your use of this information. documented in this encounter [facility] 01-05-2021 History of Present illness Narrative Images from the original note were not included. Patient Name: [facility] [id number] Date Of : Date Of Visit: 1995 01/06/2021 MRN# Provider: [id number] Chio Blanco CNP Chief Complaint Patient presents [...] more? Log into your personal health record on?https://[email or web address].hi m?and enter?R135?in the Education box to learn more about Ingrown Toenail: Care Instructions. Current as of: July 23, 2020 Content Version: 12.9 DocumentCloud. Care instructions adapted under license by your healthcare professional. If you have questions about a medical condition or this instruction, always ask your healthcare professional. DocumentCloud disclaims any warranty or liability for your [...] your doctor if you can take an vypa-ysz-cunmsjz pain medicine, such as acetaminophen (Tylenol), ibuprofen [...] more? Log into your personal health record on?[email or web address] m?and enter?S191?in the Education box to learn more about Flank Pain: Care Instructions. Current as of: March 10, 2020 Content Version: 12.9 [id number] DocumentCloud. Care instructions adapted under license by your healthcare professional. If you have questions about a medical condition or this instruction, always ask your healthcare professional. DocumentCloud disclaims any warranty or liability for your use of this information. documented in this encounter [facility] Evaluation note Diagnosis Ingrown toenail of left foot with infection- Primary Flank pain Abdominal pain, unspecified site [facility] Diagnosis Viral illness- Primary Unspecified viral infection, in conditions classified elsewhere and of unspecified site Exposure to 2019 novel coronavirus [facility] Diagnosis Medication monitoring encounter- Primary Encounter for therapeutic drug monitoring Lumbar radiculopathy Thoracic or lumbosacral neuritis or radiculitis, unspecified Chronic pain syndrome [facility] Diagnosis Lower abdominal pain- Primary Abdominal pain, other specified site Non-intractable vomiting with nausea, unspecified vomiting type Slow transit constipation [facility]* Diagnosis Dysuria- Primary [facility] Diagnosis Acute cystitis without hematuria- Primary [facility] Diagnosis Strain of lumbar region, initial encounter- Primary [facility] Diagnosis Acute midline low back pain without sciatica- Primary Left lower quadrant abdominal pain Right hip pain Pain in joint, pelvic region and thigh [facility]* Diagnosis Closed fracture of coccyx, initial encounter- Primary [facility] Diagnosis Right hip pain Pain in joint, pelvic region and thigh [facility]* Diagnosis 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 Fx sacrum/coccyx-closed, with routine healing, subsequent encounter documented [facility]* Diagnosis Acute pain of right shoulder- Primary Closed fracture of sacrum and coccyx, initial encounter Smoker Tobacco use disorder documented [facility]* Diagnosis Closed fracture of sacrum and coccyx, initial encounter- Primary documented [facility]* Diagnosis Closed fracture of sacrum and coccyx, initial encounter documented [facility]* Diagnosis Closed fracture of sacrum and coccyx, initial encounter documented in this encounter [facility]* Diagnosis Closed fracture of sacrum and coccyx, initial encounter- Primary [facility]* Diagnosis Closed fracture of sacrum and coccyx, initial encounter- Primary 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, subsequent encounter documented [facility] this encounter [facility]* Diagnosis Accidental fall on or from stairs or steps, initial encounter Lumbar spondylosis- Primary Lumbosacral spondylosis without myelopathy [facility]* Diagnosis Lumbar spondylosis- Primary Lumbosacral spondylosis without myelopathy documented in this encounter [facility]* Diagnosis Lumbar spondylosis Lumbosacral spondylosis without myelopathy [facility]* Diagnosis Facet arthropathy- Primary Spondylosis of unspecified site without mention of myelopathy Myofascial pain Mylagia and myositis, unspecified Chronic pain syndrome Sacroiliitis Sacroiliitis, not elsewhere classified Right hip pain Pain in joint, pelvic region and thigh [facility]* Diagnosis Closed fracture of sacrum and coccyx, initial encounter Closed fracture of sacrum and coccyx, initial encounter Closed fracture of sacrum and coccyx, initial encounter documented in this encounter [facility] noteNo assessment information availableBerger Hospital Work Phone: Hospital course Narrative No data available for this section [facility]* Attachments The following attachments cannot be sent through Care Everywhere. * Back: Strain (Surinamese) documented in this [facility] Discharge instructions* Attachments The following attachments cannot be sent through Care Everywhere. * Coccyx Injury (Surinamese) documented in this [facility] Discharge instructions No data available for this section [facility]* Attachments The following attachments cannot be sent through Care Everywhere. * Dysuria (Surinamese) [facility] No data available for this section [facility] (narrative)* Consultation (Routine) - New Request Specialty Diagnoses / Procedures Referred By Contac t Referred To Contact Gastroenterology Diagnoses Lower abdominal pain Non-intractable vomiting with nausea, unspecified vomiting type Slow transit constipation Zelalem Hampton DO [address] [place] [address] Wander Marsh Jr., DO [address] [place] [address] Referral ID Status Reason Start Date Expiration Date V isits Requested Visits Authorized [id number] New Request 05/30/2021 06/24/2022 1 1 [facility] for referral (narrative)* Consultation (Routine) - New Request Specialty Diagnoses / Procedures Referred By Contac t Referred To Contact Internal Medicine Diagnoses Closed fracture of sacrum and coccyx, initial encounter Marylin Brink MD [address] [place] [address] Referral ID Status Reason Start Date Expiration Date V isits Requested Visits Authorized [id number] New Request 11/13/2021 12/08/2022 1 1 * Adjunctive Therapy (Routine) - Auth Not Needed Specialty Diagnoses / Procedures Referred By Contac t Referred To Contact Physical Therapy Diagnoses Closed fracture of sacrum and coccyx, initial encounter Marylin Brink MD [address] [place], [place] [phone] [facility] [place] [address] Referral ID Status Reason Start Date Expiration Date V isits Requested Visits Authorized [id number] Auth Not Needed 11/13/2021 12/08/2022 100 100 * Consultation (Routine) - New Request Specialty Diagnoses / Procedures Referred By Contac t Referred To Contact Multispecialty Diagnoses Closed fracture of sacrum and coccyx, initial encounter Marylin Brink MD [address] [place] [address] Referral ID Status Reason Start Date Expiration Date V isits Requested Visits Authorized [id number] New Request 11/13/2021 12/08/2022 1 1 [facility] Consultation (Routine) - New Request Specialty Diagnoses / Procedures Referred By Contac t Referred To Contact Multispecialty Diagnoses Closed fracture of sacrum and coccyx, initial encounter Marylin Brink MD [address] [place], [place] [phone] Arlene Titus MD [address] [place] [phone] Referral ID Status Reason Start Date Expiration Date V isits Requested Visits Authorized [id number] New Request 11/26/2021 12/21/2022 1 1 [facility] for referral (narrative)* Consultation (Routine) - New Request Specialty Diagnoses / Procedures Referred By Contac t Referred To Contact Pediatrics Diagnoses 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, subsequent encounter Marylin Brink MD [address] [place] [phone] Referral ID Status Reason Start Date Expiration Date V isits Requested Visits Authorized [id number] New Request 12/10/2021 01/04/2023 1 1 * Consultation (Routine) - New Request Specialty Diagnoses / Procedures Referred By Vince love Referred To Contact Physical Therapy Diagnoses 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 [place] [address] Status Reason Specialty Diagnoses / Procedures Referred By Contact Referred To Contact New Request General Surgery Diagnoses EIC (epidermal inclusion cyst) Rubin Troncoso, DO [address] [place] [address] Miguel Garner, DO [address] [place] [address] Status Reason Specialty Diagnoses / Procedures Referred By Contact Referred To Contact New Request TITLE INVESTIGATOR Diagnoses Abscess Rubin Troncoso, DO [address] [place] [address] Iraida Hudson, DO [address] [facility] [place] [address] Status Reason Specialty Diagnoses / Procedures Referred By Contact Referred To Contact New Request General Surgery Diagnoses Sebaceous cyst of left axilla Rubin Troncoso, DO [address] [place] [address] Bruno Thompson Светлана, DO [address] [facility] [place] [address] Status Reason Specialty Diagnoses / Procedures Referred By Contact Referred To Contact New Request Family Medicine Diagnoses Sebaceous cyst of left axilla Rubin Troncoso, DO [address] [place] [address] Status Reason Specialty Diagnoses / Procedures Referred By Contact Referred To Contact New Request Podiatry Diagnoses Foreign body in right foot, initial encounter Rubin Troncoso, DO [address] [place] [address] Swetha Rodriguez, [facility] [address] [place] [phone] Status Reason Specialty Diagnoses / Procedures Referred By Contact Referred To Contact Closed Magnetic Resonan ce Imaging Diagnoses Transient visual loss of left eye Procedures MRI BRAIN WITHOUT CONTRAST [place] MRI BRAIN Tasha Mehta MD [address] [place] [address] Amadeo Buc Mri [address] [place] [address] Specialty Diagnoses / Procedures Referred By Contac t Referred To Contact Physical Therapy Diagnoses Lumbar radiculopathy Chronic pain syndrome Mary Ellen Valles, PAID INTERNSHIP-LPN MEDICAL ASSISTANT [address] [facility] [place] [address] Amadeo Buc [facility] [address] [place] [id number] Referral ID Status Reason Start Date Expiration Date V isits Requested Visits Authorized [id number] New Request 04/01/2021 04/26/2022 1 1 Scheduling Instructions . 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 Fx sacrum/coccyx-closed, with routine healing, subsequent encounter Procedures MRI SPINE LUMBAR WITHOUT CONTRAST [place] MRI, LUMBAR SPINE Tasha Mehta MD [address] [place] [address] [facility] [address] [place] [address] Referral ID Status Reason Start Date Expiration Date Visits Re quested Visits Authorized [id number] Closed 10/13/2021 11/07/2022 1 1 Specialty Diagnoses / Procedures Referred By Contac t Referred To Contact Magnetic Resonance Imaging Diagnoses Closed fracture of sacrum and coccyx, initial encounter Procedures MRI SPINE LUMBAR WITHOUT CONTRAST [place] MRI, LUMBAR SPINE Marylin Brink MD [address] [place] [address] [facility] [address] [place] [address] Referral ID Status Reason Start Date Expiration Date Visits Re quested Visits Authorized [id number] Closed 12/01/2021 12/26/2022 1 1 Specialty Diagnoses / Procedures Referred By Contac t Referred To Contact Magnetic Resonance Imaging Diagnoses Closed fracture of sacrum and coccyx, initial encounter Procedures MRI SACRUM WITHOUT CONTRAST [place] MRI, PELVIS, W/O CONTRAST Marylin Brink MD [address] [place] [address] [facility] [address] [place] [address] Referral ID Status Reason Start Date Expiration Date Visits Re quested Visits Authorized [id number] Closed 12/01/2021 12/26/2022 1 1 Specialty Diagnoses / Procedures Referred By Contac t Referred To Contact Diagnoses Lumbar spondylosis Procedures XR FLUORO PAIN MANAGEMENT Arlene Titus MD [address] [place] [address] Referral ID Status Reason Start Date Expiration Date V isits Requested Visits Authorized [id number] New Request 01/29/2022 02/23/2023 1 1 Specialty Diagnoses / Procedures Referred By Vince t Referred To Contact Diagnoses Facet arthropathy Sacroiliitis Procedures MRI HIP RIGHT WITHOUT CONTRAST [place] MRI LOWER EXTREM JT, W/O CONTRAST Diamond Garay MD [address] [place] [address] Referral ID Status Reason Start Date Expiration Date V isits Requested Visits Authorized [id number] Auth Not Needed 02/03/2022 02/28/2023 1 1 Discharge Instructions * Attachments The following attachments cannot be sent through Care Everywhere. * , Adapting to: First Trimester (Surinamese) documented in this encounter* Instructions* Rubin Troncoso, [...] You may find a provider through the [facility] Physician Referral Service by calling [phone] or by visiting [email or web address] Thank You for choosing the [facility] Emergency Department! * Attachments The following attachments cannot be sent through Care Everywhere. * Epidermoid Cyst (Sebaceous Cyst), No Infection (Surinamese) documented in this encounter* Instructions* Rubin Troncoso, [...] You may find a provider through the [facility] Physician Referral Service by calling [phone] or by visiting [email or web address] Thank You for choosing the [facility] Department! * Attachments The following attachments cannot be sent through Care Everywhere. * Medication Side Effects (Surinamese) documented in this encounter* Attachments The following attachments cannot be sent through Care Everywhere. * Folliculitis (Surinamese) documented in this encounter* Attachments The following attachments cannot be sent through Care Everywhere. * Cellulitis (Surinamese) documented in this encounter* Instructions* Rubin Troncoso, [...] You may find a provider through the [facility] by calling [phone] or by visiting [email or web address] Thank You for choosing the [facility]! * Attachments The following attachments cannot be sent through Care Everywhere. * Abscess: Skin (Surinamese) documented in this encounter* Instructions* Rubin Troncoso [...] You may find a provider through the [facility] Physician Referral Service by calling [phone] or by visiting [email or web address] Thank You for choosing the [facility]! * Attachments The following attachments cannot be sent through Care Everywhere. * Epidermoid Cyst (Surinamese) documented in this encounter* Attachments The following attachments cannot be sent through Care Everywhere. * Strep Throat (Surinamese) documented in this encounter* Instructions* Elie Ramirez [...] to reach your doctor call: The hospital cut out machine operator at . Ask for the resident superintendent gas distribution for your doctor. - [facility] Department [...] You may find a provider through the [facility] Physician Referral Service by calling [phone] or by visiting [email or web address] Thank You for choosing the [facility]! * Attachments The following attachments cannot be sent through Care Everywhere. * Foreign Body in the Skin (Surinamese) documented in this encounter* Attachments The following attachments cannot be sent through Care Everywhere. * Paraesthesias (Surinamese) documented in this encounter* Attachments The following attachments cannot be sent through Care Everywhere. * Tooth and Gum Pain (Surinamese) documented in this encounter Assessments Diagnosis Pharyngitis [...] SURGERY INSTRUCTIONS Your surgery is scheduled at [facility] on December 25. Pre-admission testing (PAT), someone will [...] cancel your surgery, please call the office [phone] COVID-19 TESTING AT [facility] 8a-1:30p Registration will call and schedule your [...] not apply lotions, perfumes, deodorants, or nail puerto rican. At the hospital, clinic, or doctor's office [...] Where can you learn more? Go to [email or web address]. Enter T216 in the search box to learn more about 'Skin Lesion Removal: Before Your Procedure.' Interested in seeing a video go to [email or web address] to see all video content. Current as of: March 22, 2019 Content Version: 12.5 [employer]. Care instructions adapted under license by your healthcare professional. If you have questions about a medical condition or this instruction, always ask your healthcare professional. 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 Per patient started as small raised area, progressively worsened. 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 Reason Comments Abscess c/o pain to [...] tissue mass Soft tissue mass [M79.89] Procedures OH EXC TUMOR SOFT TISSUE UPPER ARM/ELBOW SUBQ 3+CM EXCISION LESION SOFT TISSUE UPPER EXTREMITY Bruno Thompson, DO [address] [facility] [place] [address] Reason Comments Post Op Visit Left axillary [...] left eye Procedures MRI BRAIN WITHOUT CONTRAST [place] MRI BRAIN Tasha Mehta MD [address] [place] [address] [facility] [address] [place] [address] Reason Comments Tingling increased dose of Sy nthroid today from 75 to 88 mcg, patirnt reports just BR[place]AD[place]STER right foot,leg, lips, nose and face were [...] Lumbar radiculopathy [facility] [address] [place] [address] Arlene Titus MD [address] [place] [address] Referral ID Status Reason Start Date Expiration Date V isits Requested Visits Authorized [id number] New Request 03/18/2021 04/12/2022 1 1 Reason Comments Abdominal Pain Pt. complains of abd pain and vomiting for last 3 weeks after eating food. Pt. states Perk isn't working. Pain 7/10. Reason Comments Urinary [...] Also complains of lower abd pain. Pain /. Specialty Diagnoses / Procedures Referred By Vince t Referred To Contact Magnetic Resonance Imaging Diagnoses 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 Fx sacrum/coccyx-closed, with routine healing, subsequent encounter Procedures MRI SPINE LUMBAR WITHOUT CONTRAST [place] MRI, LUMBAR SPINE Tasha Mehta MD [address] [place] [address] [facility]ri [address] [place] [address] Referral ID Status Reason Start Date Expiration Date Visits Re quested Visits Authorized [id number] Closed 10/13/2021 11/07/2022 1 1 Reason Comments New Patient Patient fell on October 10 and broke the sacrum. Patient is scheduled to see a Dr. Ceron at [place] referred by PCP. Patient was unable to [...] scheduled to see a Dr. Ceron at [place] referred by PCP. Patient was unable to [...] scheduled to see a Dr. Ceron at [place] referred by PCP. Patient was unable to [...] worse Specialty Diagnoses / Procedures Referred By Vince love Referred To Contact Magnetic Resonance Imaging Diagnoses Closed fracture of sacrum and coccyx, initial encounter Procedures MRI SPINE LUMBAR WITHOUT CONTRAST [place] MRI, LUMBAR SPINE Marylin Brink MD [address] [place] [address] [facility] [address] [place] [address] Referral ID Status Reason Start Date Expiration Date Visits Re quested Visits Authorized [id number] Closed 12/01/2021 12/26/2022 1 1 Specialty Diagnoses / Procedures Referred By Vince love Referred To Contact Magnetic Resonance Imaging Diagnoses Closed fracture of sacrum and coccyx, initial encounter Procedures MRI SACRUM WITHOUT CONTRAST [place] MRI, PELVIS, W/O CONTRAST Marylin Brink MD [address] [place] [address], [place] [address] [facility] [address] [place] [address] Referral ID Status Reason Start Date Expiration Date Visits Re quested Visits Authorized [id number] Closed 12/01/2021 12/26/2022 1 1 Reason Comments Paperwork Here for prescriptio n for pain meds Reason Comments Follow-up Pain Reason Comments Pain Specialty Diagnoses / Procedures Referred By Contac t Referred To Contact Diagnoses Lumbar spondylosis Arlene Titus MD [address] [place] [address] Referral ID Status Reason Start Date Expiration Date Visits Re quested Visits Authorized [id number] Closed 01/05/2022 01/30/2023 1 1 Specialty Diagnoses / Procedures Referred By Contac t Referred To Contact Diagnoses Lumbar spondylosis Procedures XR FLUORO PAIN MANAGEMENT Arlene Titus MD [address] [place] [address] Referral ID Status Reason Start Date Expiration Date V isits Requested Visits Authorized [id number] New Request 01/29/2022 02/23/2023 1 1 Reason [...] Dr Troncoso at bedside. Emergency Department Report [facility] Service Date:.05/12/20 PCP: Rekha Payton [...] AXILLARY 12/26/2019 Surgeon: Bruno Thompson DO; Location: [facility] OR TREATMENT INDUCED W/ DILATION & EVACUATION [...] Never Used Tobacco comment: quit 2018 Substance and Sexual Activity Alcohol use: Not Currently Drug use: Not Currently Sexual activity: Not on file Comment: LMP 12/17/19 Lifestyle Physical activity Days per week: Not on file Minutes per session: Not on file Stress: Not on file Relationships Social connections Talks on phone: Not on file Gets together: Not on file Attends tenriism service: Not on file Active member of [...] RIGHT 3 VIEWS AMB REFERRAL TO PODIATRY Junel 1/20 1-20 MG-MCG tablet sertraline 25 MG tablet [...] AXILLARY 12/26/2019 Surgeon: Bruno Thompson DO; Location: [facility] OR TREATMENT INDUCED W/ DILATION & [...] ear normal. Nose: Nose normal. Mouth/Throat: Lips: [place]. Mouth: Mucous membranes are moist. Dentition: Abnormal [...] Discharged with Dentist followup. Micheline Veloz MD 01/12/202255 Dr. Veloz in Patient states dentist appointment on January 28 documented in this encounter Care Teams (unrecognized sec tion and content) Pitching Coach Relationship Specialty Start Date End Date Tasha Mehta CNP [address] [place] [address] PCP - General Nurse Practitioner 01/05/21 Pitching Coach Relationship Specialty Start Date End Date Tasha Mehta CNP [address] [place] [address] PCP - General Nurse Practitioner 01/05/21 Pitching Coach Relationship Specialty Start Date End Date Tasha Mehta MD [address] [place] [address] PCP - General Nurse Practitioner - [facility] 07/17/20 Pitching Coach Relationship Specialty Start Date End Date Tasha Mehta MD [address] [place] [address] PCP - General Nurse Practitioner - [facility] 07/17/20 Pitching Coach Relationship Specialty Start Date End Date Tasha Mehta, LPN MEDICAL ASSISTANT [address] [place] [address] PCP - General Nurse Practitioner 01/05/21 Pitching Coach Relationship Specialty Start Date End Date Tasha Mehta, LPN MEDICAL ASSISTANT [address] [place] [address] PCP - General Nurse Practitioner 01/05/21 Pitching Coach Relationship Specialty Start Date End Date Tasha Mehta MD [address] [place] [address] PCP - General Nurse Practitioner - [facility] 07/17/20 Pitching Coach Relationship Specialty Start Date End Date Tasha Mehta, LPN MEDICAL ASSISTANT [address] [place] [address] PCP - General Nurse Practitioner 01/05/21 Pitching Coach Relationship Specialty Start Date End Date Tasha Mehta MD [address] [place] [address] PCP - General Nurse Practitioner - [facility] 07/17/20 Pitching Coach Relationship Specialty Start Date End Date Tasha Mehta MD [address] [place] [address] PCP - General Nurse Practitioner - [facility] 07/17/20 Pitching Coach Relationship Specialty Start Date End Date Tasha Mehta MD [address] [place] [address] PCP - General Nurse Practitioner - [facility] 07/17/20 Pitching Coach Relationship Specialty Start Date End Date Tasha Mehta MD [address] [place] [address] PCP - General Nurse Practitioner - [facility] 07/17/20 Pitching Coach Relationship Specialty Start Date End Date Tasha Mehta MD [address] [place] [address] PCP - General Nurse Practitioner - [facility] 07/17/20 Pitching Coach Relationship Specialty Start Date End Date Tasha Mehta MD [address] [place] [address] PCP - General Nurse Practitioner - [facility] 07/17/20 Pitching Coach Relationship Specialty Start Date End Date Tasha Mehta MD [address] [place] [address] PCP - General Nurse Practitioner - [facility] 07/17/20 Pitching Coach Relationship Specialty Start Date End Date Tasha Mehta MD [address] [place] [address] PCP - General Nurse Practitioner - [facility] 07/17/20 Pitching Coach Relationship Specialty Start Date End Date Tasha Mehta MD [address] [place] [address] PCP - General Nurse Practitioner - [facility] 07/17/20 Pitching Coach Relationship Specialty Start Date End Date Tasha Mehta MD [address] [place] [address] PCP - General Nurse Practitioner - [facility] 07/17/20 Pitching Coach Relationship Specialty Start Date End Date Tasha Mehta MD [address] [place] [address] PCP - General Nurse Practitioner - [facility] 07/17/20 Pitching Coach Relationship Specialty Start Date End Date Tasha Mehta MD [address] [place] [address] PCP - General Nurse Practitioner - [facility] 07/17/20 Pitching Coach Relationship Specialty Start Date End Date Tasha Mehta MD [address] [place] [address] PCP - General Nurse Practitioner - [facility] 07/17/20 Pitching Coach Relationship Specialty Start Date End Date Tasha Mehta MD [address] [place] [address] PCP - General Nurse Practitioner - [facility] 07/17/20 Pitching Coach Relationship Specialty Start Date End Date Tasha Mehta MD [address] [place] [address] PCP - General Nurse Practitioner - [facility] 07/17/20 Pitching Coach Relationship Specialty Start Date End Date Tasha Mehta MD [address] [place] [address] PCP - General Nurse Practitioner - [facility] 07/17/20 Team Status: Active Member Role Status Dates Services [facility] Primary Care Provider Active Team Status: Inactive Member Role Status Dates [facility] Primary Care Provider Active Tasha Mehta CLINICAL SUPERVISOR-C Attending Provider Active Team Status: Inactive Member Role Status Dates Tasha Mehta CLINICAL SUPERVISOR-C Attending Provider Active Start: June 09, 2023 End: June 09, 2023 Team Status: Inactive Member Role Status Dates Tasha Mehta CLINICAL SUPERVISOR-C Attending Provider Active Start: September 01, 2023 End: September 01, 2023 Team Status: Inactive Member Role Status Dates Tasha Mehta CLINICAL SUPERVISOR-C Attending Provider Active Start: October 27, 2023 End: October 27, 2023 Team Status: Inactive Member Role Status Dates Tasha Mehta CLINICAL SUPERVISOR-C Attending Provider Active Start: October 27, 2023 End: October 27, 2023 NON STAFF Primary Care Provider Active Start: October 27, 2023 End: October 27, 2023 Team Status: Active Member Role Status [facility] Primary Care Provider Active Start: November 17, 2023 Jim Mcknight MD Attending Provider Active Start: November 17, 2023 Team Status: Inactive Member Role Status [facility] Tasha Mehta CLINICAL SUPERVISOR-C Attending Provider Active Start: January 03, 2024 End: January 03, 2024 Scheduled Active and Recently Administ ered Medications [...] Butch Ocasio RN)[id number] (Stopped - Provider: Chelly Blackburn RN) Scheduled Medication Order 01/07/2021 01/08/2021 01/09/2021 ketorolac [...] section and content) DATE CREATED AUTHOR 10/11/2021 [facility] DATE CREATED AUTHOR AUTHOR'S ORGANIZ ATION 11/03/2021 [facility] DATE CREATED AUTHOR AUTHOR'S ORGANIZ ATION 03/16/2022 [facility] DATE CREATED AUTHOR AUTHOR'S ORGANIZ ATION 04/20/2022 [facility] DATE CREATED AUTHOR AUTHOR'S ORGANIZ ATION 06/17/2023 [facility] DATE CREATED AUTHOR AUTHOR'S ORGANIZ ATION 11/15/2023 [facility] DATE CREATED AUTHOR AUTHOR'S ORGANIZ ATION 11/17/2023 [facility] DATE CREATED AUTHOR AUTHOR'S ORGANIZ ATION 12/24/2023 [facility] DATE CREATED AUTHOR AUTHOR'S ORGANIZ ATION 01/05/2024 [facility] DATE CREATED AUTHOR AUTHOR'S ORGANIZ ATION 01/13/2024 [facility] EPIC Goals (unrecognized section and content) Goals may be documented in a n alternate sectionGoals may be documented in an alternate sectionGoals may be documented in an alternate sectionGoals may be documented in an alternate section No data available for this sectionGoals may be documented in an alternate [...] BE BASED ON THE PRIMARY CLINICAL RECORDS. [facility]. provides no warranty or guarantee of the accuracy or completeness of information in this document.
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
[2024-01-22 00:09] LABS: Bilirubin Urine NEGATIVE (NEGATIVE); Blood Urine NEGATIVE (NEGATIVE); Clarity Urine CLEAR (CLEAR); Color Urine LT. YELLOW (YELLOW); Glucose Urine UA NEGATIVE (NEGATIVE); Ketones Urine NEGATIVE (NEGATIVE); Leukocyte Esterase Urine NEGATIVE (NEGATIVE); Nitrite Urine NEGATIVE (NEGATIVE); Protein Urine NEGATIVE (NEG/TRACE); Urobilinogen Urine 0.2 EU/dL (0.2-1.0); pH Urine 6.5 (5.0-9.0)
[2024-01-22 00:13] LABS: Urine Microscopic Indicated NO
[2024-01-22 00:20] LABS: Amphetamine Screen Urine NEGATIVE (NEGATIVE); Barbiturates Screen Urine NEGATIVE (NEGATIVE); Benzodiazepines Screen Urine NEGATIVE (NEGATIVE); Buprenorphine Screen Urine NEGATIVE (NEGATIVE); Cannabinoid Screen Urine POSITIVE (NEGATIVE); Cocaine Screen Urine NEGATIVE (NEGATIVE); Methadone Screen Urine NEGATIVE (NEGATIVE); Methamphetamines Screen Urine NEGATIVE (NEGATIVE); Opiate Screen Urine NEGATIVE (NEGATIVE); Oxycodone Screen Urine NEGATIVE (NEGATIVE); Phencyclidine Screen Urine NEGATIVE (NEGATIVE); Tricyclic Antidepressant Urine NEGATIVE (NEGATIVE)
[2024-01-22] MEDS: ACETAMINOPHEN 500 MG TABLET 1000 MG PO (00:23)
[2024-01-22 00:45] VITALS: BP 135/98; PULSE 101; O2SAT 99
== END 2024-01-22 00:50 | disposition home or self-care (01) ==
PROVIDERS: Emergency Provider Internal Medicine
DX: O9A.212 Injury, poisoning and certain other consequences of external causes complicating pregnancy, second trimester (principal); S00.81XA Abrasion of other part of head, initial encounter; S00.419A Abrasion of unspecified ear, initial encounter; S10.91XA Abrasion of unspecified part of neck, initial encounter; Y04.8XXA Assault by other bodily force, initial encounter; O9A.312 Physical abuse complicating pregnancy, second trimester; O99.332 Smoking (tobacco) complicating pregnancy, second trimester; F17.200 Nicotine dependence, unspecified, uncomplicated; O99.322 Drug use complicating pregnancy, second trimester; F12.90 Cannabis use, unspecified, uncomplicated; Z3A.18 18 weeks gestation of pregnancy; Y07.010 Husband, current, perpetrator of maltreatment and neglect
CPT/HCPCS: 80307; 81003; 99283

== ENCOUNTER 2024-08-03 10:08 | Outpatient (OUT) | payer MEDICARE, MEDICAID, SELFPAY ==
--- NOTE | 2024-08-03 10:21 | XR_ITS ---
The [address] [address] Patient Name: HERMINIO COOPER MRN: [id number] date: 1995 Sex: F Assigned Patient Location: [facility] Current Patient Location: [facility] Accession/Order Number: [id number] Exam Date: 08/03/2024 11:51 Report Date: 08/03/2024 11:58 At the request of: TASHA MEHTA NP Procedure: XR sacroiliac joint BELINDA CLINICAL HISTORY: Back and sacrococcygeal pain following childbirth M53.3 SACRUM AND COCCYX -3 views COMPARISON: Lumbar spine 07/19/2023 Lateral as well as AP views in upward and downward projection were obtained. No fracture or displacement is identified. The SI joints and sacral foramen appear intact. No soft tissue abnormalities are seen. XR/XR sacroiliac joint BELINDA IMPRESSION: NO ACUTE BONY FINDINGS. SI JOINTS - 3 views COMPARISON: Lumbar spine 07/19/2023 AP and both oblique views of the SI joints were obtained. The SI joints are maintained. No ankylosis is seen. There are no acute fractures. There is minimal sclerosis along the iliac margins. No soft tissue abnormalities are present. IMPRESSION: NO ACUTE BONY FINDINGS. LUMBAR SPINE - 2 views COMPARISON: Lumbar spine 07/19/2023 AP and lateral views were obtained. No acute fractures or displacement are seen. The disc spaces are maintained. There is no significant hypertrophy. The SI joints are unchanged in appearance. No paraspinal soft tissue abnormalities are noted. IMPRESSION: NO ACUTE BONY FINDINGS. Impression dictated by: Kim Madrigal M.D.08/03/2024 11:58 AM Dictation Location: [place] [address] Electronically authenticated by: [id number] Y Date: 08/03/2024 11:58
--- NOTE | 2024-08-03 10:21 | XR_ITS ---
The [address] [address] Patient Name: HERMINIO COOPER MRN: [id number] date: 1995 Sex: F Assigned Patient Location: [facility] Current Patient Location: [facility] Accession/Order Number: [id number] Exam Date: 08/03/2024 11:51 Report Date: 08/03/2024 11:58 At the request of: TASHA MEHTA NP Procedure: XR sacroiliac joint BELINDA CLINICAL HISTORY: Back and sacrococcygeal pain following childbirth M53.3 SACRUM AND COCCYX -3 views COMPARISON: Lumbar spine 07/19/2023 Lateral as well as AP views in upward and downward projection were obtained. No fracture or displacement is identified. The SI joints and sacral foramen appear intact. No soft tissue abnormalities are seen. XR/XR sacrum coccyx min 2V IMPRESSION: NO ACUTE BONY FINDINGS. SI JOINTS - 3 views COMPARISON: Lumbar spine 07/19/2023 AP and both oblique views of the SI joints were obtained. The SI joints are maintained. No ankylosis is seen. There are no acute fractures. There is minimal sclerosis along the iliac margins. No soft tissue abnormalities are present. IMPRESSION: NO ACUTE BONY FINDINGS. LUMBAR SPINE - 2 views COMPARISON: Lumbar spine 07/19/2023 AP and lateral views were obtained. No acute fractures or displacement are seen. The disc spaces are maintained. There is no significant hypertrophy. The SI joints are unchanged in appearance. No paraspinal soft tissue abnormalities are noted. IMPRESSION: NO ACUTE BONY FINDINGS. Impression dictated by: Kim Madrigal M.D.08/03/2024 11:58 AM Dictation Location: [place] [address] Electronically authenticated by: [id number] Y Date: 08/03/2024 11:58
--- NOTE | 2024-08-03 10:21 | XR_ITS ---
The [address] [address] Patient Name: HERMINIO COOPER MRN: [id number] date: 1995 Sex: F Assigned Patient Location: [facility] Current Patient Location: [facility] Accession/Order Number: [id number] Exam Date: 08/03/2024 11:51 Report Date: 08/03/2024 11:58 At the request of: TASHA MEHTA NP Procedure: XR sacroiliac joint BELINDA CLINICAL HISTORY: Back and sacrococcygeal pain following childbirth M53.3 SACRUM AND COCCYX -3 views COMPARISON: Lumbar spine 07/19/2023 Lateral as well as AP views in upward and downward projection were obtained. No fracture or displacement is identified. The SI joints and sacral foramen appear intact. No soft tissue abnormalities are seen. XR/XR lumbar spine 2-3V IMPRESSION: NO ACUTE BONY FINDINGS. SI JOINTS - 3 views COMPARISON: Lumbar spine 07/19/2023 AP and both oblique views of the SI joints were obtained. The SI joints are maintained. No ankylosis is seen. There are no acute fractures. There is minimal sclerosis along the iliac margins. No soft tissue abnormalities are present. IMPRESSION: NO ACUTE BONY FINDINGS. LUMBAR SPINE - 2 views COMPARISON: Lumbar spine 07/19/2023 AP and lateral views were obtained. No acute fractures or displacement are seen. The disc spaces are maintained. There is no significant hypertrophy. The SI joints are unchanged in appearance. No paraspinal soft tissue abnormalities are noted. IMPRESSION: NO ACUTE BONY FINDINGS. Impression dictated by: Kim Madrigal M.D.08/03/2024 11:58 AM Dictation Location: [place] [address] Electronically authenticated by: [id number] Y Date: 08/03/2024 11:58
== END 2024-08-03 10:09 | disposition home or self-care (01) ==
LOC: RAD 10:10
PROVIDERS: PCP Nurse Practitioner Adult Health; Visit Provider Nurse Practitioner Adult Health
DX: M53.3 Sacrococcygeal disorders, not elsewhere classified (principal)
CPT/HCPCS: 72100; 72202; 72220